=== PATIENT | female | born 1935 | race Caucasian/White ===

== ENCOUNTER 2016-08-17 16:10 | Inpatient (IN) | payer MEDICARE, OTHER ==
[~2016-08-17] VITALS: Ht 162.6 cm; Wt 74.0 kg
[~2016-08-17 16:10] MED LIST: ACET-62 PO; AMIO200T2 PO; AMLO2.5T PO; ASCO500T10 PO; BUME0.5T11 PO; CALC-727 PO; CARV12.52 PO; DIPH25CA84 PO; DOCU-168 PO; FISH1CAP59 PO; GUAI600T PO; HYDR-4246 PO; INSU100V12 SQ; INSU100V13 SQ; IPRA3AMP AEROSOL; LISI2.5T2 PO; LORA0.5T2 PO; POLY119P3 PO; POTA-81 PO; WARF1TAB6 PO; WARF3TAB6 PO
--- OUTSIDE RECORDS SUMMARY | 2016-08-17 16:16 | XMS REPORT | Referral Summary ---
Author Author [facility], [facility] Organization [facility] Address Unknown Phone Unavailable Care Team Providers Care Test Fixture Designer Name Role Phone Makenzie Dietz Primary Care Physician [phone] Encounter VC Date(s): 03/09/16 - 03/09/16 [facility] [address] [place] [id number] Discharge Diagnosis: Encounter for immunization Discharge Disposition: 01-Home or Self Care Attending Physician: Kyle Barron APRN Admitting Physician: Kyle Barron APRN Vital Signs Most recent to 1 oldest [Reference Range]: Temperature Tympanic 36.3 degC [36.6-38.1 degC] *LOW* (03/09/16 3:19 PM) Peripheral Pulse 81 bpm Rate [60-100 bpm] (03/09/16 3:19 PM) Blood Pressure 138/62 mmHg [90-140/60-90 mmHg] (03/09/16 3:19 PM) SpO2 98 % (03/09/16 3:19 PM) Problem List Condition Effective Dates Status Health Status Informant Acute Active pain(Confirmed) At risk for Active injury(Confirmed)1 At risk of pressure Active sore(Confirmed) Bladder Active problem(Confirmed)2 Bradycardia(Confirme Active d) Cataracts(Confirmed) Resolved Cellulitis(Confirmed Active ) COPD (chronic Active obstructive pulmonary disease)(Confirmed) Chronic Resolved UTI(Confirmed) Congestive heart Active failure (CHF)(Confirmed) Charcot's Active arthropathy, diabetic(Confirmed) Charcot foot due to Active diabetes mellitus(Confirmed) Diabetes(Confirmed) Resolved Diabetic Resolved neuropathy(Confirmed ) Fluid Active imbalance(Confirmed) 3 GERD Active (gastroesophageal reflux disease)(Confirmed) GERD(Confirmed) Resolved S/P placement of Active cardiac pacemaker(Confirmed) Hearing Active loss(Confirmed) Hearing Resolved loss(Confirmed) History of Resolved esophageal cancer(Confirmed) Hypercholesterolemia Active (Confirmed) Hyperlipidemia(Confi Active rmed) Hypertension(Confirm Resolved ed) Impaired gas Active exchange(Confirmed)4 Impaired spontaneous Active ventilation(Confirme d)5 Irregular heart Resolved rhythm(Confirmed) Methicillin Active resistant Staphylococcus aureus(Confirmed)6 Neuropathy(Confirmed Active ) Nonstageable Active pressure ulcer(Confirmed) Osteoarthritis(Confi Active rmed) Osteoarthritis(Confi Resolved rmed) PVD (peripheral Active vascular disease)(Confirmed) Peripheral vascular Resolved disease(Confirmed) Tissue perfusion Active alteration(Confirmed )7 DM (diabetes Active mellitus), type 2(Confirmed) 1Problem added automatically by system based on initiation of Risk for Injury Plan of Care 2hx of very recurrent urinary tract infections, hx of abnormal wide open left and right ureteral orifices, hx/ch.interstitial cystitis,&amp;bilateral vesicoureteral reflux, urethral stenosis,&amp; ch.trigonitis 3Problem added automatically by system based on initiation of Fluid Volume Imbalance Plan of Care 4Problem added automatically by system based on initiation of Impaired Gas Exchange Plan of Care 5Problem added automatically by system based on initiation of Impaired Spontaneous Ventilation Plan of Care 6Abscess from Finger collected 11/11/15 14:10:00 CDT 7Problem added automatically by system based on initiation of Tissue Perfusion Cerebral Plan of Care Allergies, Adverse Reactions, Alerts Substance Reaction Severity Status Bactrim DS Active ciprofloxacin Active niacin ITICHING Severe Active sulfamethoxazole increased eosinophils Active trimethoprim increased eosinophils Active Medications acetaminophen 650 mg oral tablet, extended release 650 mg, Oral, Daily, as needed for pain, # 24 tabs, 3 Refill(s), Pharmacy: [facility], 650 mg Oral Daily,PRN:as needed for pain Start Date: 09/20/15 Status: Ordered albuterol 2.5 mg/3 mL (0.083%) inhalation solution See Instructions, USE ONE VIAL IN NEBULIZER EVERY 6 HOURS (SCHEDULED), # 75 unknown unit, 3 Refill(s), eRx: [id number], USE ONE VIAL IN NEBULIZER EVERY 6 HOURS (SCHEDULED) Start Date: 02/28/16 Status: Ordered amiodarone 200 mg oral tablet 200 mg 1 tabs, Oral, Daily, # 30 tabs, 6 Refill(s), Pharmacy: [place] [id number], 1 tabs Oral Daily Start Date: 09/26/15 Status: Ordered amLODIPine 2.5 mg oral tablet See Instructions, TAKE ONE TABLET BY MOUTH ONCE DAILY, # 30 tabs, 2 Refill(s), eRx: [place] [id number], TAKE ONE TABLET BY MOUTH ONCE DAILY Start Date: 01/16/16 Status: Ordered ascorbic acid 500 mg, Oral, Daily, 0 Refill(s) Start Date: 07/16/15 Status: Ordered Bactroban 2% topical ointment 1 rissa, Topical, TID, # 22 g, 0 Refill(s), Pharmacy: [place] [id number] Start Date: 11/15/15 Status: Ordered bisacodyl 10 mg rectal suppository 10 mg 1 supp, Rectal, Daily, as needed for constipation, # 10 supp, 0 Refill(s) Start Date: 08/18/15 Status: Ordered bumetanide 0.5 mg oral tablet See Instructions, TAKE TWO TABLETS BY MOUTH TWICE DAILY, # 120 tabs, 1 Refill(s) , eRx: [place] [id number], TAKE TWO TABLETS BY MOUTH TWICE DAILY Start Date: 01/24/16 Status: Ordered Calcium 600+D 600 mg-200 intl units oral tablet 1 tabs, Oral, BID, # 270 tabs, 2 Refill(s), Pharmacy: [place] [id number] Start Date: 11/06/13 Status: Ordered carvedilol 12.5 mg oral tablet See Instructions, TAKE ONE TABLET BY MOUTH TWICE DAILY, # 60 tabs, 3 Refill(s), eRx: [place] [id number], TAKE ONE TABLET BY MOUTH TWICE DAILY Start Date: 02/16/16 Status: Ordered cephalexin 500 mg oral tablet 500 mg 1 tabs, Oral, TID, X 10 days, # 30 tabs, 0 Refill(s), Pharmacy: [place] [id number], 1 tabs Oral TID,x10 days Start Date: 03/06/16 Stop Date: 03/16/16 Status: Ordered Colace 100 mg, Oral, BID, 0 Refill(s) Start Date: 07/16/15 Status: Ordered diphenhydrAMINE 25 mg oral capsule 25 mg 1 caps, Oral, QID, as needed for itching, 0 Refill(s) Start Date: 08/18/15 Status: Ordered DuoNeb 0.5 mg-2.5 mg/3 mL inhalation solution 3 mL, NEB, QID, # 30 Each, 0 Refill(s), other reason (Rx) Start Date: 07/25/15 Status: Ordered Klor-Con M20 oral tablet, extended release See Instructions, TAKE ONE TABLET BY MOUTH TWICE DAILY, # 60 tabs, 3 Refill(s), eRx: [facility], TAKE ONE TABLET BY MOUTH TWICE DAILY Start Date: 01/30/16 Status: Ordered Levemir 100 units/mL subcutaneous solution See Instructions, INJECT 20 UNITS SUBCUTANEOUS AT BEDTIME DAILY., # 15 mL, 3 Refill(s), Pharmacy: [place] [address], INJECT 20 UNITS SUBCUTANEOUS AT BEDTIME DAILY. Start Date: 01/18/16 Status: Ordered lisinopril 2.5 mg oral tablet 2.5 mg 1 tabs, Oral, Daily, # 30 tabs, 3 Refill(s), Pharmacy: [facility] Start Date: 09/20/15 Status: Ordered LISINOPRIL 2.5MG TAB See Instructions, TAKE ONE TABLET BY MOUTH ONCE DAILY, # 30 tabs, 3 Refill(s), eRx: [facility], TAKE ONE TABLET BY MOUTH ONCE DAILY Start Date: 03/09/16 Status: Ordered LORazepam 0.5 mg oral tablet 1-2tabs, Oral, TID, as needed for anxiety, MUST LAST 30 DAYS, # 30 tabs, 0 Refill(s) Start Date: 12/09/15 Status: Ordered MiraLax 17 g 1 packets, Oral, Daily, 0 Refill(s) Start Date: 07/25/15 Status: Ordered Mucinex 600 mg oral tablet, extended release 600 mg, Oral, q12hr, as needed for cough, # 20 tabs, 3 Refill(s), Pharmacy: [facility], 600 mg Oral q12hr,PRN:as needed for cough Start Date: 09/20/15 Status: Ordered NEBULIZER NEBULIZER, See Instructions, NEBULIZER AND ALL THE SUPPLIES, # 1 Each, 0 Refill( s) Start Date: 09/20/15 Status: Ordered NovoLOG 100 units/mL subcutaneous solution See Instructions, 4 units SubCutaneous WITH BREAKFAST AND 5 uints with LUNCH AND 4 UNITS WITH SUPPER, # 10 mL, 5 Refill(s), Pharmacy: [facility] , 4 units SubCutaneous WITH BREAKFAST AND 5 uints with LUNCH AND 4 UNITS WITH SUPPER Start Date: 01/18/16 Status: Ordered nystatin 100,000 units/g topical cream 1 rissa, Topical, TID, # 30 g, 0 Refill(s), Pharmacy: [facility] Start Date: 01/12/16 Status: Ordered omega-3 polyunsaturated fatty acids 1000 mg oral capsule 1,000 mg 1 caps, Oral, TID, # 90 caps, 0 Refill(s) Start Date: 08/30/15 Status: Ordered Robitussin Cough + Chest Congestion DM mL, Oral, q4hr, 0 Refill(s) Start Date: 08/30/15 Status: Ordered vitamin E with mixed tocopherols 400 intl units oral capsule 1 capsule, Oral, Daily, 0 Refill(s) Start Date: 08/30/15 Status: Ordered warfarin 3 mg oral tablet See Instructions, TAKE ONE TABLET BY MOUTH ONCE DAILY, # 30 tabs, 1 Refill(s), eRx: [facility], TAKE ONE TABLET BY MOUTH ONCE DAILY Start Date: 02/10/16 Status: Ordered Results No data available for this section Immunizations Vaccine Date Refusal Reason influenza virus vaccine, inactivated 03/09/16 influenza virus vaccine, inactivated 04/13/15 influenza virus vaccine, live 02/24/13 influenza virus vaccine, live 03/25/07 pneumococcal 13-valent conjugate vaccine 04/13/15 pneumococcal 23-polyvalent vaccine 07/28/02 tetanus-diphth toxoids (Td) adult/adol 12/25/08 tetanus-diphth toxoids (Td) adult/adol 03/20/06 zoster vaccine live 11/23/10 Procedures Procedure Date Related Diagnosis Body Site Cystoscopy using panendoscope1 07/14/14 Foot examination performed (includes 06/07/14 examination through visual inspection, sensory exam with monofilament, and pulse exam - report when any of the 3 components are completed) (DM) Esophagogastroduodenoscopy with biopsies, 2013 normal Esophagogastroduodenoscopy 2011 Cystogram 2009 Colonoscopy 2008 Esophagogastroduodenoscopy 2007 JUAQUIN BSO - Total abdominal hysterectomy and 2004 bilateral salpingo-oophorectomy Cataract extraction 1999 Appendectomy Hysterectomy Pacemaker2 Repair of ptosis ou 1Biopsy and fulguration of urethrocele. 2March 2016 Social History Social History Type Response Smoking Status Former smoker; Type: Cigarettes Assessment and Plan No data available for this section
--- OUTSIDE RECORDS SUMMARY | 2016-08-17 16:17 | XMS REPORT | Continuity of Care Document ---
Author Author [facility] Organization [facility] Address Unknown Phone Unavailable Allergies Medications Problems Procedures Results Encounters ACCT No. Visit Date/Time Discharge Status Pt. Type Provider Facility Loc./Unit Complaint [id number] 08/14/2013 10:20:00 08/14/2013 23 :59:59 CLS Outpatient [id number] 07/24/2013 19:08:00 07/24/2013 23 :59:59 CLS Outpatient [id number] 06/25/2013 08:02:00 06/25/2013 23 :59:59 CLS Outpatient [id number] 06/23/2013 13:51:00 06/23/2013 23 :59:59 CLS Outpatient [id number] 06/15/2013 15:41:00 06/15/2013 23 :59:59 CLS Outpatient
--- OUTSIDE RECORDS SUMMARY | 2016-08-17 16:18 | XMS REPORT | Referral Summary ---
Author Author [facility] Organization [facility] Address Unknown Phone Unavailable Care Team Providers Care Power Brake Operator Name Role Phone Makenzie Dietz Primary Care Physician [phone] Encounter VC Date(s): 03/16/16 - 03/16/16 [facility], [address] [place] [address] Discharge Disposition: 01-Home or Self Care Attending Physician: Kyle Barron APRN Admitting Physician: Kyle Barron APRN Vital Signs Most recent to 1 oldest [Reference Range]: Temperature Tympanic 36.1 degC [36.6-38.1 degC] *LOW* (03/16/16 8:07 AM) Peripheral Pulse 86 bpm Rate [60-100 bpm] (03/16/16 8:07 AM) Respiratory Rate 16 br/min [14-20 br/min] (03/16/16 8:07 AM) Blood Pressure 110/58 mmHg [90-140/60-90 mmHg] (03/16/16 8:07 AM) SpO2 93 % (03/16/16 8:07 AM) Problem List Condition Effective Dates Status Health [...] pain, # 24 tabs, 3 Refill(s), Pharmacy: [id number], 650 mg Oral Daily,PRN:as needed for pain Start Date: 09/20/15 Status: Ordered albuterol 2.5 mg/3 mL (0.083%) inhalation solution See Instructions, USE ONE VIAL IN NEBULIZER EVERY 6 HOURS (SCHEDULED), # 75 unknown unit, 3 Refill(s), eRx: [facility], USE ONE VIAL IN NEBULIZER EVERY 6 HOURS (SCHEDULED) Start Date: 02/28/16 Status: Ordered amiodarone 200 mg oral tablet 200 mg 1 tabs, Oral, Daily, # 30 tabs, 6 Refill(s), Pharmacy: [place] [id number], 1 tabs Oral Daily Start Date: 09/26/15 Status: Ordered amLODIPine 2.5 mg oral tablet See Instructions, TAKE ONE TABLET BY MOUTH ONCE DAILY, # 30 tabs, 2 Refill(s), eRx: [place] [id number], TAKE ONE TABLET BY MOUTH ONCE DAILY Start Date: 01/16/16 Status: Ordered ascorbic acid 500 mg, Oral, Daily, 0 Refill(s) Start Date: 07/16/15 Status: Ordered Bactroban 2% topical ointment 1 rissa, Topical, TID, # 22 g, 0 Refill(s), Pharmacy: [place] [id number] Start Date: 11/15/15 Status: Ordered bisacodyl 10 mg rectal suppository 10 mg 1 supp, Rectal, Daily, as needed for constipation, # 10 supp, 0 Refill(s) Start Date: 08/18/15 Status: Ordered bumetanide 0.5 mg oral tablet See Instructions, TAKE TWO TABLETS BY MOUTH TWICE DAILY, # 120 tabs, 1 Refill(s) , eRx: [place] [id number], TAKE TWO TABLETS BY MOUTH TWICE DAILY Start Date: 01/24/16 Status: Ordered Calcium 600+D 600 mg-200 intl units oral tablet 1 tabs, Oral, BID, # 270 tabs, 2 Refill(s), Pharmacy: [place] [id number] Start Date: 11/06/13 Status: Ordered carvedilol 12.5 mg oral tablet See Instructions, TAKE ONE TABLET BY MOUTH TWICE DAILY, # 60 tabs, 3 Refill(s), eRx: [place] [id number], TAKE ONE TABLET BY MOUTH TWICE DAILY Start Date: 02/16/16 Status: Ordered Colace 100 mg, Oral, BID, [...] DAILY, # 60 tabs, 3 Refill(s), eRx: [place] [id number], TAKE ONE TABLET BY MOUTH TWICE DAILY Start Date: 01/30/16 Status: Ordered Levemir 100 units/mL subcutaneous solution See Instructions, INJECT 20 UNITS SUBCUTANEOUS AT BEDTIME DAILY., # 15 mL, 3 Refill(s), Pharmacy: [place] [id number], INJECT 20 UNITS SUBCUTANEOUS AT BEDTIME DAILY. Start Date: 01/18/16 Status: Ordered lisinopril 2.5 mg oral tablet 2.5 mg 1 tabs, Oral, Daily, # 30 tabs, 3 Refill(s), Pharmacy: [place] [id number] Start Date: 09/20/15 Status: Ordered LISINOPRIL 2.5MG TAB See Instructions, TAKE ONE TABLET BY MOUTH ONCE DAILY, # 30 tabs, 3 Refill(s), eRx: [place] [id number], TAKE ONE TABLET BY MOUTH ONCE DAILY [...] cough, # 20 tabs, 3 Refill(s), Pharmacy: [place] [address], 600 mg Oral q12hr,PRN:as needed for cough Start Date: 09/20/15 Status: Ordered NEBULIZER NEBULIZER, See Instructions, NEBULIZER AND ALL THE SUPPLIES, # 1 Each, 0 Refill( s) Start Date: 09/20/15 Status: Ordered NovoLOG 100 units/mL subcutaneous solution See Instructions, 4 units SubCutaneous WITH BREAKFAST AND 5 uints with LUNCH AND 4 UNITS WITH SUPPER, # 10 mL, 5 Refill(s), Pharmacy: [place] [id number] , 4 units SubCutaneous WITH BREAKFAST AND 5 uints with LUNCH AND 4 UNITS WITH SUPPER Start Date: 01/18/16 Status: Ordered nystatin 100,000 units/g topical cream 1 rissa, Topical, TID, # 30 g, 0 Refill(s), Pharmacy: [facility] Start Date: 01/12/16 Status: Ordered [...] DAILY, # 30 tabs, 1 Refill(s), eRx: [facility], TAKE ONE TABLET BY MOUTH [...] (DM) Esophagogastroduodenoscopy with biopsies, 2013 normal Esophagogastroduodenoscopy 2012 Cystogram 2009 Colonoscopy 2008 Esophagogastroduodenoscopy 2007 JUAQUIN BSO - Total abdominal hysterectomy and 2004 bilateral salpingo-oophorectomy Cataract extraction 1999 Appendectomy Hysterectomy Pacemaker2 Repair of ptosis ou 1Biopsy and fulguration of urethrocele. 2March 2016 Social History Social History Type Response Smoking Status Former smoker; Type: Cigarettes Assessment and Plan No data available for this section
--- OUTSIDE RECORDS SUMMARY | 2016-08-17 16:19 | XMS REPORT | Referral Summary ---
Author Author [facility] Organization [facility] Address Unknown Phone Unavailable Care Team Providers Care Drupal Developer Name Role Phone Makenzie Dietz Primary Care Physician [phone] Encounter VC Date(s): 07/04/16 - 07/04/16 [facility] [address] [place] [address] [place] [address]- Discharge Diagnosis: Dysphagia Discharge Disposition: 01-Home or Self Care Attending Physician: Phil Lopez MD Admitting Physician: Phil Lopez MD Referring Physician: Ernst Newman MD Vital Signs Most recent to 1 oldest [Reference Range]: Peripheral Pulse 85 bpm Rate [60-100 bpm] (07/04/16 2:33 PM) Blood Pressure 135/53 mmHg [90-140/60-90 mmHg] (07/04/16 2:33 PM) Problem List Condition Effective Dates Status [...] )7 DM (diabetes Active mellitus), type 2(Confirmed) 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) 1Problem added automatically by system based on [...] pain, # 24 tabs, 3 Refill(s), Pharmacy: [facility], 650 mg Oral Daily,PRN:as needed for pain Start Date: 09/20/15 Status: Ordered albuterol 2.5 mg/3 mL (0.083%) inhalation solution See Instructions, USE ONE VIAL IN NEBULIZER EVERY 6 HOURS (SCHEDULED), # 75 unknown unit, 3 Refill(s), eRx: [facility], USE ONE VIAL IN NEBULIZER EVERY 6 HOURS (SCHEDULED) Start Date: 02/28/16 Status: Ordered amiodarone 200 mg oral tablet See Instructions, TAKE ONE TABLET BY MOUTH ONCE DAILY, # 30 tabs, 5 Refill(s), eRx: [facility], TAKE ONE TABLET BY MOUTH ONCE DAILY Start Date: 04/12/16 Status: Ordered amLODIPine 2.5 mg oral tablet See Instructions, TAKE ONE TABLET BY MOUTH ONCE DAILY, # 30 tabs, 5 Refill(s), eRx: [place] [address], TAKE ONE TABLET BY MOUTH ONCE DAILY Start Date: 04/12/16 Status: Ordered ascorbic acid 500 mg, Oral, Daily, 0 Refill(s) Start Date: 07/16/15 Status: Ordered Bactroban 2% topical ointment 1 rissa, Topical, TID, # 22 g, 0 Refill(s), Pharmacy: [place] [address] Start Date: 11/15/15 Status: Ordered bisacodyl 10 mg rectal suppository 10 mg 1 supp, Rectal, Daily, as needed for constipation, # 10 supp, 0 Refill(s) Start Date: 08/18/15 Status: Ordered bumetanide 0.5 mg oral tablet See Instructions, TAKE TWO TABLETS BY MOUTH TWICE DAILY, # 120 tabs, eRx: [place] [id number] Start Date: 06/21/16 Status: Ordered Calcium 600+D 600 mg-200 intl units oral tablet 1 tabs, Oral, BID, # 270 tabs, 2 Refill(s), Pharmacy: [place] [address] Start Date: 11/06/13 Status: Ordered carvedilol 12.5 mg oral tablet See Instructions, TAKE ONE TABLET BY MOUTH TWICE DAILY, # 60 tabs, eRx: [place] [id number] Start Date: 06/19/16 Status: Ordered Colace 100 mg, Oral, BID, 0 Refill(s) Start Date: 07/16/15 Status: Ordered diphenhydrAMINE 25 mg oral capsule 25 mg 1 caps, Oral, QID, as needed for itching, 0 Refill(s) Start Date: 08/18/15 Status: Ordered DuoNeb 0.5 mg-2.5 mg/3 mL inhalation solution 3 mL, NEB, QID, # 30 Each, 0 Refill(s), other reason (Rx) Start Date: 07/25/15 Status: Ordered insulin syringe 0.5/29G MIS insulin syringe 0.5/29G MIS, See Instructions, Use to inject insulin 5 times daily or as directed, # 150 Each, 0 Refill(s), Pharmacy: [facility] , Use to inject insulin 5 times daily or as directed Start Date: 06/08/16 Status: Ordered Klor-Con M20 oral tablet, extended release See Instructions, TAKE ONE TABLET BY MOUTH TWICE DAILY, # 60 tabs, 5 Refill(s), eRx: [facility] Start Date: 06/29/16 Status: Ordered Levemir 100 units/mL subcutaneous solution See Instructions, INJECT 20 UNITS SUBCUTANEOUS AT BEDTIME DAILY., # 15 mL, 3 Refill(s), Pharmacy: [place] [address], INJECT 20 UNITS SUBCUTANEOUS AT BEDTIME DAILY. Start Date: 01/18/16 Status: Ordered lisinopril 2.5 mg oral tablet 2.5 mg 1 tabs, Oral, Daily, # 30 tabs, 3 Refill(s), Pharmacy: [place] [id number] Start Date: 09/20/15 Status: Ordered LORazepam 0.5 mg oral tablet 1-2tabs, Oral, TID, as needed for anxiety, MUST LAST 30 DAYS, # 30 tabs, 0 Refill(s) Start Date: 12/09/15 Status: Ordered MiraLax 17 g 1 packets, Oral, Daily, 0 Refill(s) Start Date: 07/25/15 Status: Ordered Miscellaneous DME DME Item Vios Nebulizer accessories (tubing, mouthpiece, filter)/daily/lifetime , See Instructions, # 1 Each, 1 Refill(s), Pharmacy: [id number] , Vios Nebulizer accessories (tubing, mouthpiece, filter)/daily/lifetime, Supply Start Date: 03/23/16 Status: Ordered Mucinex 600 mg oral tablet, extended release 600 mg, Oral, q12hr, as needed for cough, # 20 tabs, 3 Refill(s), Pharmacy: [facility], 600 mg Oral q12hr,PRN:as needed for cough Start Date: 09/20/15 Status: Ordered NEBULIZER NEBULIZER, See Instructions, NEBULIZER AND ALL THE SUPPLIES, # 1 Each, 0 Refill( s) Start Date: 09/20/15 Status: Ordered NovoLOG 100 units/mL subcutaneous solution See Instructions, 4 units SubCutaneous WITH BREAKFAST AND 5 uints with LUNCH AND 4 UNITS WITH SUPPER, # 10 mL, 5 Refill(s), Pharmacy: [facility] , 4 units SubCutaneous WITH BREAKFAST AND 5 uints with LUNCH AND 4 UNITS WITH SUPPER Start Date: 01/18/16 Status: Ordered nystatin 100,000 units/g topical cream 1 rissa, Topical, TID, # 30 g, 0 Refill(s), Pharmacy: [facility] Start Date: 01/12/16 Status: Ordered omega-3 polyunsaturated fatty acids 1000 mg oral capsule 1,000 mg 1 caps, Oral, TID, # 90 caps, 0 Refill(s) Start Date: 08/30/15 Status: Ordered relion prime glucose test strip relion prime glucose test strip, See Instructions, use to check blood glucose 3 times daily DX: E11.9, # 2 boxes, 2 Refill(s), Pharmacy: [facility] , use to check blood glucose 3 times daily; DX: E11.9 Start Date: 06/21/16 Status: Ordered Robitussin Cough + Chest Congestion DM mL, Oral, q4hr, 0 Refill(s) Start Date: 08/30/15 Status: Ordered vitamin E with mixed tocopherols 400 intl units oral capsule 1 capsule, Oral, Daily, 0 Refill(s) Start Date: 08/30/15 Status: Ordered warfarin 3 mg oral tablet See Instructions, TAKE ONE TABLET BY MOUTH ONCE DAILY, # 30 tabs, 5 Refill(s), eRx: [facility], TAKE ONE TABLET BY MOUTH ONCE DAILY Start Date: 04/12/16 Status: Ordered Results No data available for this section Immunizations Given and Recorded Vaccine Date Status Refusal Reason influenza virus vaccine, inactivated 03/09/16 Given influenza virus vaccine, inactivated 04/13/15 Given influenza virus vaccine, live 02/24/13 Given influenza virus vaccine, live 03/25/07 Given pneumococcal 13-valent conjugate vaccine 04/13/15 Given pneumococcal 23-polyvalent vaccine 07/28/02 Recorded tetanus-diphth toxoids (Td) adult/adol 12/25/08 Given tetanus-diphth toxoids (Td) adult/adol 03/20/06 Given zoster vaccine live 11/23/10 Given Procedures Procedure Date Related Diagnosis Body Site [...] Former smoker; Type: Cigarettes Assessment and Plan Extracted from: Title: Ambulatory Patient Education Author: Phil Lopez MD Date: 07/04 Allergy Dysphagia Swallowing problems (dysphagia) occur when solids and liquids seem to stick in your throat on the way down to your stomach, or the food takes longer to get to the stomach. Other symptoms include regurgitating food, noises coming from the throat, chest discomfort with swallowing, and a feeling of fullness or the feeling of something being stuck in your throat when swallowing. When blockage in your throat is complete, it may be associated with drooling. CAUSES Problems with swallowing may occur because of problems with the muscles. The food cannot be propelled in the usual manner into your stomach. You may have ulcers, scar tissue, or inflammation in the tube down which food travels from your mouth to your stomach (esophagus), which blocks food from passing normally into the stomach. Causes of inflammation include: Acid reflux from your stomach into your esophagus. Infection. Radiation treatment for cancer. Medicines taken without enough fluids to wash them down into your stomach. You may have nerve problems that prevent signals from being sent to the muscles of your esophagus to contract and move your food down to your stomach. Globus pharyngeus is a relatively common problem in which there is a sense of an obstruction or difficulty in swallowing, without any physical abnormalities of the swallowing passages being found. This problem usually improves over time with reassurance and testing to rule out other causes. DIAGNOSIS Dysphagia can be diagnosed and its cause can be determined by tests in which you swallow a white substance that helps illuminate the inside of your throat ( contrast medium) while X-rays are taken. Sometimes a flexible telescope that is inserted down your throat (endoscopy) to look at your esophagus and stomach is used. TREATMENT If the dysphagia is caused by acid reflux or infection, medicines may be used. If the dysphagia is caused by problems with your swallowing muscles, swallowing therapy may be used to help you strengthen your swallowing muscles. If the dysphagia is caused by a blockage or mass, procedures to remove the blockage may be done. HOME CARE INSTRUCTIONS Try to eat soft food that is easier to swallow and check your weight on a daily basis to be sure that it is not decreasing. Be sure to drink liquids when sitting upright (not lying down). SEEK MEDICAL CARE IF: You are losing weight because you are unable to swallow. You are coughing when you drink liquids (aspiration). You are coughing up partially digested food. SEEK IMMEDIATE MEDICAL CARE IF: You are unable to swallow your own saliva(. You are having shortness of breath or a fever, or both.( You have a hoarse voice along with difficulty swallowing. MAKE SURE YOU: Understand these instructions. Will watch your condition. Will get help right away if you are not doing well or get worse. This information is not intended to replace advice given to you by your health care provider. Make sure you discuss any questions you have with your health care provider. Document Released: 05/17/2001 Document Revised: 06/10/2015 Document Reviewed: [employer] Patient Education 2016 [employer] No follow up information was provided. Extracted from: Title: Office Visit Note Author: Phil Lopez MD Date: 07/04/16 Assessment/Plan 1.Dysphagia Ordered: Office Visit Level 4 Est [address]3333 Plan: Esophagogastroduodenoscopy. I did spend some time reviewing herchart. She did undergo a CT scan of her chest abdomen and pelvis in April 2016at did not reveal any evidence for neoplasm or acute pathology. [facility]. 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 Reviewed recentPET scan that revealed ahypermetabolic lesion at the GE junction consistent with neoplasm. I informed the patient that with herPET scan revealing evidence forhypermetabolism involving her GE junction,personal history for esophageal cancer, and recent onset of progressive dysphagiaI would recommend proceeding with esophagogastroduodenoscopy for further evaluation. Patient will need to be off her Coumadin 5 days prior to her EGD. Patient was scheduled.
--- OUTSIDE RECORDS SUMMARY | 2016-08-17 16:19 | XMS REPORT | Referral Summary ---
Author Author [facility] Organization [facility] Address Unknown Phone Unavailable Care Team Providers Care Marine Consultant Name Role Phone Makenzie Dietz Primary Care Physician [phone] Encounter VC Date(s): 07/13/16 - 07/13/16 [facility] [address] [place] [id number] Discharge Diagnosis: Leg pain, right Discharge Diagnosis: Dysphagia Discharge Disposition: 01-Home or Self Care Attending Physician: Rachel Dietz DO Admitting Physician: Rachel Dietz DO Vital Signs Most recent to 1 oldest [Reference Range]: Temperature Tympanic 36.4 degC [36.6-38.1 degC] *LOW* (07/13/16 8:52 AM) Peripheral Pulse 86 bpm Rate [60-100 bpm] (07/13/16 8:52 AM) Respiratory Rate 18 br/min [14-20 br/min] (07/13/16 8:52 AM) Blood Pressure 118/58 mmHg [90-140/60-90 mmHg] (07/13/16 8:52 AM) SpO2 98 % (07/13/16 8:52 AM) Problem List Condition Effective Dates Status [...] pain, # 24 tabs, 3 Refill(s), Pharmacy: [facility], 650 mg Oral Daily,PRN:as needed for pain Start Date: 09/20/15 Status: Ordered albuterol 2.5 mg/3 mL (0.083%) inhalation solution See Instructions, USE ONE VIAL IN NEBULIZER EVERY 6 HOURS (SCHEDULED), # 75 unknown unit, 3 Refill(s), eRx: [email or web address], USE ONE VIAL IN NEBULIZER EVERY 6 HOURS (SCHEDULED) Start Date: 02/28/16 Status: Ordered amiodarone 200 mg oral tablet See Instructions, TAKE ONE TABLET BY MOUTH ONCE DAILY, # 30 tabs, 5 Refill(s), eRx: [place] [address], TAKE ONE TABLET BY MOUTH ONCE DAILY Start Date: 04/12/16 Status: Ordered amLODIPine 2.5 mg oral tablet See Instructions, TAKE ONE TABLET BY MOUTH ONCE DAILY, # 30 tabs, 5 Refill(s), eRx: [place] [address], TAKE ONE TABLET BY MOUTH ONCE DAILY Start Date: 04/12/16 Status: Ordered ascorbic acid 500 mg, Oral, Daily, 0 Refill(s) Start Date: 07/16/15 Status: Ordered Bactroban 2% topical ointment 1 rissa, Topical, TID, # 22 g, 0 Refill(s), Pharmacy: [place] [address] Start Date: 11/15/15 Status: Ordered bisacodyl 10 mg rectal suppository 10 mg 1 supp, Rectal, Daily, as needed for constipation, # 10 supp, 0 Refill(s) Start Date: 08/18/15 Status: Ordered bumetanide 0.5 mg oral tablet See Instructions, TAKE TWO TABLETS BY MOUTH TWICE DAILY, # 120 tabs, eRx: [place] [id number] Start Date: 06/21/16 Status: Ordered Calcium 600+D 600 mg-200 intl units oral tablet 1 tabs, Oral, BID, # 270 tabs, 2 Refill(s), Pharmacy: [place] [address] Start Date: 11/06/13 Status: Ordered carvedilol 12.5 mg oral tablet See Instructions, TAKE ONE TABLET BY MOUTH TWICE DAILY, # 60 tabs, eRx: [place] [id number] Start Date: 06/19/16 Status: Ordered Colace 100 [...] directed, # 150 Each, 0 Refill(s), Pharmacy: [place] [address] , Use to inject insulin 5 times daily or as directed Start Date: 06/08/16 Status: Ordered Klor-Con M20 oral tablet, extended release See Instructions, TAKE ONE TABLET BY MOUTH ONCE DAILY, # 60 tabs, 5 Refill(s), eRx: [facility] Start Date: 06/29/16 Status: Ordered Levemir 100 units/mL subcutaneous solution See Instructions, INJECT 20 UNITS SUBCUTANEOUS AT BEDTIME DAILY., # 15 mL, 3 Refill(s), Pharmacy: [place] [address], INJECT 20 UNITS SUBCUTANEOUS AT BEDTIME DAILY. Start Date: 01/18/16 Status: Ordered lisinopril 2.5 mg oral tablet 2.5 mg 1 tabs, Oral, Daily, # 30 tabs, 3 Refill(s), Pharmacy: [place] [address] Start Date: 09/20/15 Status: Ordered LISINOPRIL 2.5MG TAB See Instructions, TAKE ONE TABLET BY MOUTH ONCE DAILY, # 30 tabs, 2 Refill(s), eRx: [facility], TAKE ONE TABLET BY MOUTH ONCE DAILY Start Date: 07/12/16 Status: Ordered LORazepam 0.5 mg oral tablet 1-2tabs, Oral, TID, as needed for anxiety, MUST LAST 30 DAYS, # 30 tabs, 0 Refill(s) Start Date: 12/09/15 Status: Ordered MiraLax 17 g 1 packets, Oral, Daily, 0 Refill(s) Start Date: 07/25/15 Status: Ordered Miscellaneous DME DME Item Vios Nebulizer accessories (tubing, mouthpiece, filter)/daily/lifetime , See Instructions, # 1 Each, 1 Refill(s), Pharmacy: [id number] , [employer]ios Nebulizer accessories (tubing, mouthpiece, filter)/daily/lifetime, Supply Start Date: 03/23/16 Status: Ordered Mucinex 600 mg oral tablet, extended release 600 mg, Oral, q12hr, as needed for cough, # 20 tabs, 3 Refill(s), Pharmacy: [place] [address], 600 mg Oral q12hr,PRN:as needed for cough Start Date: 09/20/15 Status: Ordered NEBULIZER NEBULIZER, See Instructions, NEBULIZER AND ALL THE SUPPLIES, # 1 Each, 0 Refill( s) Start Date: 09/20/15 Status: Ordered NovoLOG 100 units/mL subcutaneous solution See Instructions, 4 units SubCutaneous WITH BREAKFAST AND 6 units with LUNCH AND 4 UNITS WITH SUPPER, # 10 mL, 5 Refill(s), Pharmacy: [place] [address] Start Date: 01/18/16 Status: Ordered nystatin 100,000 units/g topical cream 1 rissa, Topical, TID, # 30 g, 0 Refill(s), Pharmacy: [place] [address] Start Date: 01/12/16 Status: Ordered omega-3 polyunsaturated fatty acids 1000 mg oral capsule 1,000 mg 1 caps, Oral, TID, # 90 caps, 0 Refill(s) Start Date: 08/30/15 Status: Ordered relion prime glucose test strip relion prime glucose test strip, See Instructions, use to check blood glucose 3 times daily DX: E11.9, # 2 boxes, 2 Refill(s), Pharmacy: [place] [address] , use to check blood glucose 3 [...] DAILY, # 30 tabs, 5 Refill(s), eRx: [facility], TAKE ONE TABLET BY MOUTH ONCE DAILY Start Date: 04/12/16 Status: Ordered Results Coagulation Most recent to 1 oldest [Reference Range]: PT Venous (07/13/16 9:33 AM) INR [0.8-1.2] 2.5 1 *HI* (07/13/16 9:33 AM) 1Result Comment: Normal (no anticoagulant): 0.8 - 1.2 Units Routine Therapeutic Range: 2.0 - 3.0 Units High Risk Therapeutic Range: 2.5 - 3.5 Units Chemistry Most recent to 1 oldest [Reference Range]: Sodium Lvl [135-144 140 mEq/L mEq/L] (07/13/1633 AM) Potassium Lvl 5.6 mEq/L [3.5-5.2 mEq/L] *HI* (07/13/16 AM) Chloride [99-111 109 mEq/L mEq/L] (07/13/16 AM) CO2 [22-31 mEq/L] 24 mEq/L (07/13/16 AM) AGAP [3-20] 7 (07/13/16 AM) BUN [10-20 mg/dL] 56 mg/dL *HI* (07/13/16 AM) Glucose Lvl [70-99 109 mg/dL mg/dL] *HI* (07/13/16 AM) Creatinine Lvl 1.83 mg/dL [0.57-1.11 mg/dL] *HI* (07/13/16: AM) eGFR [>60 mL/min] 27 mL/min 1 *ABN* (07/13/16 AM) Calcium Lvl 9.2 mg/dL 2 [8.4-10.2 mg/dL] (07/13/16: AM) Albumin Lvl [3.4-4.8 3.8 gm/dL gm/dL] (07/13/16 AM) Total Protein 7.0 gm/dL [6.0-7.6 gm/dL] (07/13/16 AM) Globulin [1.8-4.0 3.2 gm/dL gm/dL] (07/13/16: AM) ALT [0-55 U/L] 14 U/L (07/13/16 AM) AST [5-34 U/L] 12 U/L (07/13/16:33 AM) Alk Phos [40-150 76 U/L U/L] (07/13/16 AM) Bili Total [0.2-1.2 0.3 mg/dL mg/dL] (07/13/16 9:33 AM) Hgb A1c [4.1-5.6 %] 6.7 % *HI* (07/13/16 9:33 AM) eAvg Glucose 145.6 mg/dL (07/13/16 9:33 AM) 1Result Comment: Multiply eGFR results by 1.21 for race. 2Result Comment: Please note reference range change effective 07/06/2016. Immunizations Given and Recorded Vaccine Date Status [...] 2013 normal Esophagogastroduodenoscopy 2011 Cystogram 2009 Colonoscopy 2007 Esophagogastroduodenoscopy 2007 JUAQUIN BSO - Total abdominal hysterectomy and 2004 bilateral salpingo-oophorectomy Cataract extraction 1999 Appendectomy Hysterectomy Pacemaker2 Repair of ptosis ou 1Biopsy and fulguration of urethrocele. 2March 2016 Social History Social History Type Response Smoking Status Former smoker; Type: Cigarettes Assessment and Plan Extracted from: Title: Office Visit Note Author: Rachel Dietz DO Date: 07/13/16 Assessment/Plan Anticoagulated on Coumadin INR today, patient instructed to hold her Coumadin and understands her instructions, patient will come back the next day for INR and will give further instructions on Coumadin after procedure. Ordered: Office Visit Level 4 Est 97273 Diabetes Labs as below, we'll plan on changing mealtime insulin if A1c is high. We 'll target noon meal the most aggressively as this seems to be when her sugars are the highest. Ordered: Comprehensive Metabolic Panel Hemoglobin A1c Office Visit Level 4 Est 68556 Dysphagia Continue workup with oncology and surgery. Ordered: Office Visit Level 4 Est 16608 Leg pain, right Patient can go ahead and take 2 Tylenol at a time and if this isn't effective she will let me know. Ordered: Office Visit Level 4 Est 68421
--- OUTSIDE RECORDS SUMMARY | 2016-08-17 16:20 | XMS REPORT | Continuity of Care Document ---
Author Author [facility] Organization [facility] Address Unknown Phone Unavailable Support Name Relationship Address Phone JOHAN MAYS MD Caregiver [address] [place] [address] DR[place] [phone] JUANITA TRAN MD Caregiver [address] [place] [address] [place] [address] [phone] [place] Next Of Kin [address] [facility] [place] [address] C Insurance Providers Payer Name Policy Number Subscriber Name Relationship Medicare [id number] Lauro Ball 20 Self [place] [id number] Lauro Ball 20 Self Advance Directives Directive Response Recorded Date/Time Advanced Directives Type Living Will DPOA for Healthcare 10/21/13 8:55am Ordered Resuscitation Status Full Code, unverified 10/21/13 7:54am Resuscitation Documents on File No 10/21/13 8:55am Problems No known problems or medical conditions. Medications Medication Dose Route Sig Days/Qty Instructions Order Date Discontinued Date Status Hydrocodone Bit/Acetaminophen 1 Tab PO NEEDED 08/12/09 12/16/09 Discontinued Telmisartan 80 Mg PO DAILY 11/17/08 06/17/09 Discontinued Insulin Lispro 13 U SQ DAILY 04/02/08 04/05/08 Discontinued Insulin Lispro 15 U SQ THREE TIMES A DAY 11/17/08 06/17/09 Discontinued Gabapentin 100 Mg PO FOUR TIMES DAILY 03/24/10 Active Insulin Glargine 40 U SQ TWICE A DAY 11/17/08 06/17/09 Discontinued Niacin/Lovastatin 1 Tab PO DAILY 03/24/10 10/04/10 Discontinued Acetaminophen/Dp-Hydram Hcl 1 Tab PO NEEDED 04/02/08 04/05/08 Discontinued Aspirin 81 Mg PO DAILY 04/02/08 04/05/08 Discontinued Fish Oil/Convoy-3 Fatty Acids 2 Cap PO THREE TIMES A DAY 03/24/1019/05 Discontinued Vit B Comp W/C Comb No7/Fa/Min 1 Cap PO DAILY 04/02/08 04/05/08 Discontinued Vit B12/Fa/Pyridoxal/B6/Betain 1 Cap PO DAILY 11/17/08 06/17/09 Discontinued Calcium 500 Mg PO DAILY 06/07/08 08/13/08 Discontinued Vit C/Echin Purp/Herb11 500 Mg PO DAILY 06/07/08 08/13/08 Discontinued Vit E Ac/Cu/Se/Znox/Pyg/Saw P 1 Cap PO DAILY 06/07/08 08/13/08 Discontinued Omeprazole Magnesium 20 Mg PO DAILY 04/05/08 08/13/08 Discontinued Multivitamins 1 Tab PO DAILY 03/24/10 07/20/11 Discontinued Gluc Oseguera/Chondr Oseguera A Na/Na/C/Se 1 Tab PO TWICE A DAY 03/24/10 Discontinued Ibuprofen 200 Mg PO NEEDED 04/05/08 08/13/08 Discontinued Aspirin 325 Mg PO DAILY 03/24/10 07/20/11 Discontinued Insulin Glargine 50 U SQ TWICE A DAY 03/24/10 08/04/10 Discontinued Calcium Carbonate 1 Tab PO DAILY 03/24/10 07/20/11 Discontinued Insulin Glargine 40 U SQ TWICE A DAY 08/04/10 Active Insulin Lispro 15 U SQ THREE TIMES A DAY 08/04/10 Active Ascorbic Acid 250 Mg PO DAILY 10/04/10 07/20/11 Discontinued Vitamin E 400 Unit PO DAILY 10/04/10 07/20/11 Discontinued Fenofibrate Nanocrystallized 1 Tab PO DAILY 05/23/13 Active Fish Oil/Convoy-3 Fatty Acids 2 Cap PO THREE TIMES A DAY 05/23/13 Active Carvedilol 6.25 Mg PO TWICE A DAY 10/19/13 Active Guaifenesin/D-Methorphan Hb 1 Bottle PO TWICE A DAY 10/19/13 Active Docusate Sodium 100 Mg PO TWICE A DAY 10/19/13 Active Multivitamins 1 Tab PO DAILY 10/19/13 Active Vitamin E Mixed 400 Unit PO DAILY 10/19/13 Active Furosemide 20 Mg PO DAILY 10/19/13 Active Aspirin 325 Mg PO DAILY 07/14/14 Active Social History Social History Problem Response Recorded Date/Time Chewing Tobacco Status No 07/13/2014 10:13am Hx Substance Use No 07/13/2014 10:13am Hx Alcohol Use No 07/13/2014 10:13am Has the pt used tobacco in the last 12 months No 07/13/2014 10:13am Query Response Start Date Stop Date Smoking Status Former smoker Hospital Discharge Instructions No hospital discharge instructions. Plan of Care No plan of care. Functional Status No functional status results. Allergies, Adverse Reactions, Alerts Allergen Type Severity Reaction Status Last Updated Niacin Allergy Unknown HIVES Active 07/13/14 Sulfamethoxazole Allergy Unknown hives Active 07/13/14 Trimethoprim Allergy Unknown HIVES Active 07/13/14 Immunizations Name Given Type Hx Influenza Vaccination Y MAR 2014 Historical Hx Pneumococcal Vaccination Y JUL 2013 Historical Hx Tetanus, Diptheria, Pertussis No Historical Hx Influenza Vaccination Y MAR 2014 Historical Hx Tetanus Diptheria No Historical Hx Tetanus, Diptheria, Pertussis No Historical Vital Signs Acute Vital Signs Vital Response Date/Time Temperature (Fahrenheit) 97.3 deg F (96.8 - 99.1) Temperature (Calculated Celsius) 36.16828 degrees C (36.0 - 37.3) Temperature Source Temporal Pulse Rate (adult) 66 bpm (60 - 100) Respiratory Rate 16 breaths/min (10 - 20) O2 Sat by Pulse Oximetry 92 % (90 - 100) Oxygen Delivery Method Nasal Cannula Oxygen Flow Rate 1.00 L/min Blood Pressure 147/64 mm Hg Blood Pressure Source Automatic Cuff Height 5 ft 5 in Weight 194 lb Body Mass Index 32.0 kg/m^2 Results Test Source Date Result Interp. Ref. Range Comments Alanine Aminotransferase (ALT/SGPT) July 14, 2014 9:15am 25 U/L N 9- 52 Albumin July 14, 2014 9:15am 3.8 G/DL N 3.5-5.0 Albumin/Globulin Ratio July 14, 2014 9:15am 1.2 RATIO N 1.1-2.2 Alkaline Phosphatase July 14, 2014 9:15am 77 U/L N 38-126 Anion Gap July 14, 2014 9:15am 9 MEQ/L N 5-15 Anisocytosis June 23, 2014 10:44am 1+ - COMMENT Patient will go to lab for blood draw Arterial Blood Base Excess July 30, 2013 4:45pm 9.5 MMOL/L H -2.0- 2.0 COMMENT CALL RESULTS TO Beth PABLO Arterial Blood HCO3 July 30, 2013 4:45pm 35 MEQ/L H 22-26 COMMENT CALL RESULTS TO Beth PABLO Arterial Blood Oxygen Content July 30, 2013 4:45pm 28 - COMMENT CALL RESULTS TO Beth PABLO Arterial Blood Oxygen Saturation July 30, 2013 4:45pm 94.0 % L 95.0- 98.0 COMMENT CALL RESULTS TO Beth PABLO Arterial Blood Partial Pressure CO2 July 30, 2013 4:45pm 52 MMHG H 34-45 COMMENT CALL RESULTS TO Beth PABLO Arterial Blood Total CO2 July 30, 2013 4:45pm 36.9 MEQ/L H 23-27 COMMENT CALL RESULTS TO Beth PABLO Arterial Blood pH July 30, 2013 4:45pm 7.440 N 7.350-7.450 COMMENT CALL RESULTS TO Beth PABLO Arterial Blood pO2 at Patient Temp July 30, 2013 4:45pm 70 MMHG L 80 -100 COMMENT CALL RESULTS TO Beth PABLO Aspartate Amino Transf (AST/SGOT) July 14, 2014 9:15am 21 U/L N 14- 36 BUN/Creatinine Ratio July 14, 2014 9:15am 34 RATIO H 6-26 Band Neutrophils # June 23, 2014 10:44am 0.1 T/MM3 - COMMENT Patient will go to lab for blood draw Band Neutrophils % June 23, 2014 10:44am 2.0 % N 0-6 COMMENT Patient will go to lab for blood draw Basophils # (Auto) July 14, 2014 9:15am 0.1 T/MM3 N 0-0.2 Basophils # (Manual) August 05, 2013 4:10am 0.1 T/MM3 N 0-0.2 Basophils % (Manual) August 05, 2013 4:10am 1.0 % N 0-2 Basophils (%) (Auto) July 14, 2014 9:15am 0.5 % N 0-2 Blood Urea Nitrogen July 14, 2014 9:15am 31.0 MG/DL H 7-17 C-Reactive Protein June 23, 2014 10:44am 5.3 MG/L N 0-9 COMMENT Patient will go to lab for blood draw Calcium Level July 14, 2014 9:15am 9.5 MG/DL N 8.4-10.2 Calculated Osmolality July 14, 2014 9:15am 283 MOSM/KG H 261-280 Carbon Dioxide Level July 14, 2014 9:15am 27 MEQ/L N 22-30 Chemistry Specimen Hemolysis July 14, 2014 9:15am < 15 0-25 0-25 : No Hemolysis.26-70: Slight Hemolysis - can falsely elevate K and Urine Protein. 71-285: Moderate Hemolysis - can falsely elevate K, Troponin I, CA 19-9, PTH, CSF GLucose, and Urine Protein, and can falsely decrease Phenytoin. 286-999: Gross Hemolysis - can falsely elevate K, Troponin I, CA 19-9, PTH, CSF Glucose, and Urine Protine, and can falsely decrease Phenytoin. Recommend specimen recollection. Chloride Level July 14, 2014 9:15am 108 MEQ/L H 98-107 Cholesterol Level October 28, 2013 4:55am 166 MG/DL N 132-199 Cholesterol/HDL Ratio October 28, 2013 4:55am 6.6 RATIO H 0-4.0 Conjugated Bilirubin October 28, 2013 4:55am 0.00 MG/DL N 0.00-0.30 Creatinine July 14, 2014 9:15am 0.9 MG/DL N 0.7-1.2 D-Dimer July 24, 2013 8:35pm 1340 NG/ML H 0-400 <400 NG/ML= PRESUMPTIVE NEGATIVE FOR PE OR DVT>400 NG/ML=ADDITIONAL EVALUATION FOR PE OR DVT RECOMMENDED Differential Total Cells Counted March 28, 2010 4:35am 100 % - Eosinophils # (Auto) July 14, 2014 9:15am 0.1 T/MM3 N 0-0.5 Eosinophils # (Manual) June 23, 2014 10:44am 0.6 T/MM3 H 0-0.5 COMMENT Patient will go to lab for blood draw Eosinophils % (Manual) June 23, 2014 10:44am 8.0 % H 0-4 COMMENT Patient will go to lab for blood draw Eosinophils (%) (Auto) July 14, 2014 9:15am 1.3 % N 0-4 Erythrocyte Sedimentation Rate June 23, 2014 10:44am 17 MM/HR N 0-20 COMMENT Patient will go to lab for blood draw Folate July 25, 2013 4:34am 11.9 NG/ML N 2.76-20 NORMAL ADULT RANGE : 2.76->20 ng/mL Free Thyroxine January 07, 2013 10:16am 0.94 NG/DL N 0.78-2.19 Globulin July 14, 2014 9:15am 3.2 G/DL N 2.4-3.6 Glomerular Filtration Rate Calc July 14, 2014 9:15am 61 - Glucometer July 14, 2014 10:59am 71 mg/dL N 65-110 Glucose Level July 14, 2014 9:15am 84 MG/DL N 65-110 HDL Cholesterol Direct October 28, 2013 4:55am 25 MG/DL L 40-60 Hematocrit July 14, 2014 9:15am 38.5 % N 36-46 Hemoglobin July 14, 2014 9:15am 12.7 GM/DL N 12-16 Hemoglobin A1c October 28, 2013 4:55am 5.7 % L 6-7 <6.0 NON-DIABETIC RANGE6.0-7.0 ADA THERAPEUTIC RANGE >7.0 ACTION SUGGESTED Hypersegmented Neutrophils July 31, 2013 5:49am 1+ - Hypochromasia August 19, 2013 5:20am 1+ - Hyposegmented Neutrophils July 24, 2013 8:35pm 3+ - Ordering r/o VTE Yes Icterus Index July 14, 2014 9:15am < 2 0-7 Immature Granulocyte # (Auto) July 14, 2014 9:15am 0.07 T/MM3 H 0.00 -0.03 Immature Granulocyte % (Auto) July 14, 2014 9:15am 0.8 % H 0.0-0.5 LDL Cholesterol Direct January 07, 2013 10:16am 85.69 MG/DL L 100-129 LDL Cholesterol, Calculated October 28, 2013 4:55am 106.8 N 66-159 Lab Scanned Report October 28, 2013 7:29pm LAB TEST FORM REQUEST [id number] - Large Platelets August 19, 2013 5:20am Few - Lymphocytes # (Auto) July 14, 2014 9:15am 2.5 T/MM3 N 1-4.8 Lymphocytes # (Manual) June 23, 2014 10:44am 1.4 T/MM3 N 1-4.8 COMMENT Patient will go to lab for blood draw Lymphocytes % (Manual) June 23, 2014 10:44am 20.0 % L 23-45 COMMENT Patient will go to lab for blood draw Lymphocytes (%) (Auto) July 14, 2014 9:15am 26.9 % N 23-45 Magnesium Level January 11, 2011 1:15pm 1.8 MG/DL N 1.6-2.3 Mean Corpuscular Hemoglobin July 14, 2014 9:15am 32.2 UUG N 26-34 Mean Corpuscular Hemoglobin Concent July 14, 2014 9:15am 33.0 GM/DL N 31-37 Mean Corpuscular Volume July 14, 2014 9:15am 97.5 UM3 N 80-100 Mean Platelet Volume July 14, 2014 9:15am 10.0 UM3 N 9.4-12.4 Metamyelocytes # July 27, 2013 5:14am 0.2 T/MM3 - Metamyelocytes % July 27, 2013 5:14am 1.0 % H 0-0 Microcytosis July 24, 2013 8:35pm 2+ - Ordering r/o VTE Yes Monocytes # (Auto) July 14, 2014 9:15am 1.1 T/MM3 H 0-0.8 Monocytes # (Manual) June 23, 2014 10:44am 0.5 T/MM3 N 0-0.8 COMMENT Patient will go to lab for blood draw Monocytes % (Manual) June 23, 2014 10:44am 7.0 % N 0-9.0 COMMENT Patient will go to lab for blood draw Monocytes (%) (Auto) July 14, 2014 9:15am 11.8 % H 0-9.0 Neutrophils # (Auto) July 14, 2014 9:15am 5.3 T/MM3 N 1.8-7.7 Neutrophils # (Manual) June 23, 2014 10:44am 4.3 T/MM3 N 1.8-7.7 COMMENT Patient will go to lab for blood draw Neutrophils % (Manual) June 23, 2014 10:44am 61.0 % N 33-66 COMMENT Patient will go to lab for blood draw Neutrophils (%) (Auto) July 14, 2014 9:15am 58.7 % N 33-66 Nucleated Red Blood Cells July 24, 2013 8:35pm 1 - Ordering r/o VTE Yes Oxygen Delivery Method (LAB) July 30, 2013 4:45pm Bpap, % - COMMENT CALL RESULTS TO Beth PABLO Platelet Count July 14, 2014 9:15am 286 T/MM3 N 130-400 Platelet Evaluation (Diff) August 19, 2013 5:20am Not Performed - Potassium Level July 14, 2014 9:15am 4.3 MEQ/L N 3.6-5 Prealbumin July 24, 2013 8:35pm 20.0 MG/DL N 17.6-36.0 Procalcitonin July 26, 2013 5:21am 14.26 NG/ML PH - PCT </=0.5 ng/ mL - sepsis not likely;PCT >0.5 and </=2 ng/mL - sepsis possible; PCT >2 ng/mL - sepsis likely; PCT >/=10 ng/mL - systemic inflammatory response - sepsis or septic shock highly indicated. RDW Standard Deviation July 14, 2014 9:15am 44.3 FL N 36.9-50.2 Reactive Lymphocytes # June 23, 2014 10:44am 0.1 T/MM3 H 0-0 COMMENT Patient will go to lab for blood draw Reactive Lymphocytes % June 23, 2014 10:44am 2.0 % H 0-0 COMMENT Patient will go to lab for blood draw Red Blood Count July 14, 2014 9:15am 3.95 M/MM3 L 4.00-5.20 Sodium Level July 14, 2014 9:15am 144 MEQ/L N 134-144 Thyroid Stimulating Hormone (TSH) July 24, 2013 8:35pm 1.01 MIU/L N 0.47-4.68 Thyroxine (T4) January 07, 2013 10:15am 5.8 ug/dL - Thyroxine (T4) performed at [facility] Reference Lab, [address] [place] [address] Test Engineer Mayito Mendoza MD Total Bilirubin July 14, 2014 9:15am 0.50 MG/DL N 0.20-1.30 Total Creatine Kinase July 24, 2013 8:35pm 72 U/L N 30-135 Total Protein July 14, 2014 9:15am 7.0 G/DL N 6.3-8.2 Toxic Vacuolation August 19, 2013 5:20am 1+ - Triglycerides Level October 28, 2013 4:55am 171 MG/DL H 35-135 Triiodothyronine (T3) Uptake January 07, 2013 10:15am 28 % - T3 Uptake performed at [facility] Reference Lab, [address] [place], [place] [address]Medical Director Mayito Mendoza MD Troponin I July 24, 2013 8:35pm 0.014 ng/ml N 0-0.12 Turbidity July 14, 2014 9:15am < 20 0-20 Unconjugated Bilirubin October 28, 2013 4:55am 0.00 MG/DL N 0.00-1.10 Urinalysis Comment August 18, 2013 1:00pm Microscopic not ind. - Urine Bacteria July 24, 2013 10:35pm 4+ H - COMMENT C&S IF INDICATEDHas specimen been collected/obtained? Y Urine Bilirubin August 18, 2013 1:00pm Negative - Urine Blood August 18, 2013 1:00pm Negative - Urine Collection Type August 18, 2013 1:00pm Cleancatch-midstream - Urine Color August 18, 2013 1:00pm Yellow - Urine Culture Indicated July 24, 2013 10:35pm Cult reflexed &setup - COMMENT C&S IF INDICATEDHas specimen been collected/obtained? Y Urine Glucose (UA) August 18, 2013 1:00pm Negative - Urine Ketones August 18, 2013 1:00pm Negative - Urine Leukocyte Esterase August 18, 2013 1:00pm Negative - Urine Microalbumin October 28, 2013 5:20am < 5.0 MG/L 0-17 Urine Nitrite August 18, 2013 1:00pm Negative - Urine Protein August 18, 2013 1:00pm Negative - Urine RBC July 24, 2013 10:35pm 1-3 /HPF - COMMENT C&S IF INDICATEDHas specimen been collected/obtained? Y Urine Specific [place] August 18, 2013 1:00pm 1.015 - Urine Squamous Epithelial Cells July 24, 2013 10:35pm 5-10 - COMMENT C&S IF INDICATEDHas specimen been collected/obtained? Y Urine Transitional Epithelial Cells March 24, 2010 6:35pm 1-3 /HPF - COMMENT C&SHas specimen been collected/obtained? Y Urine Turbidity August 18, 2013 1:00pm Clear - Urine Urobilinogen August 18, 2013 1:00pm 1.0 EU/DL - Urine WBC July 24, 2013 10:35pm 20-30 /HPF H - COMMENT C&S IF INDICATEDHas specimen been collected/obtained? Y Urine WBC Clumps July 24, 2013 10:35pm Many H - COMMENT C&S IF INDICATEDHas specimen been collected/obtained? Y Urine pH August 18, 2013 1:00pm 7.0 - VLDL Cholesterol October 28, 2013 4:55am 34.2 MG/DL H 0-28 Vancomycin Level Trough March 26, 2010 8:50am 13.2 UG/ML L 15-20 Venous Blood Lactate July 24, 2013 8:35pm 1.1 MMOL/L N 0.6-2.2 Vitamin B12 Level July 24, 2013 8:35pm 972 PG/ML H 239-931 White Blood Count July 14, 2014 9:15am 9.1 T/MM3 N 4.5-11.0 Blood Culture Blood July 24, 2013 8:45pm NO GROWTH AFTER 5 DAYS Helicobacter pylori Rapid Urease Gastric Biopsy December 19, 2009 8:30am Urine Culture Urine, Voided-Not Cc-Midstream August 18, 2013 1:00pm Proteus Mirabilis Gram Stain Toe-Left Fourth May 24, 2014 11:20am Name: LAURO BALL Unit #: [id number] : [id number] Sex: F Loc / Svc: [facility] DOS: 06/28/14 Signed Report #: [id number] DIAGNOSTIC IMAGING REPORT TYPE OF EXAM: NM BONE SCAN, WHOLE BODY Dictated By: DAVE INTERIANO MD INDICATION: ITS.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 After the appropriate wait time total body gamma camera images are provided in anterior and posterior projections. Findings: As on the previous examination patient shows the most prominent activity about the knees right side greater than left. In addition, mildly increased activity seen about the shoulder joints, elbow joints risks and about the mid feet and first metatarsal phalangeal joint on the left. Mild activity seen about the lower lumbar region and SI joints. Patient should some activity in the phalanges of the toes most prominently the fourth toe on the left foot. This has increased since previous study. Impression: Patient continued to show degenerative changes most pronounced about the knee joints with several other joints showing some increased activity. Findings do not currently support presence of bony metastatic disease. Patient did show activity about the left distal phalanges especially the fourth digit which is somewhat indeterminate with the amount of degenerative change is noted. Clinical correlation would be needed. . Procedures Procedure Status Date Provider(s) BONE IMAGING WHOLE BODY completed 06/28/14 [id number]"TECHNETIUM TC-99M MEDRONATE, DIAGNOSTIC, PER STUDY DO completed DIEGO MUSC/FASCIA 20 SQ CM/< completed 05/24/14 CULTURE OTHR SPECIMN AEROBIC completed 05/24/14 CULTR BACTERIA EXCEPT BLOOD completed 05/24/14 CULTURE TYPE IMMUNOLOGIC completed 05/24/14 MICROBE SUSCEPTIBLE FABIÁN completed 05/24/14 SMEAR GRAM STAIN completed 05/24/14 TISSUE EXAM BY PATHOLOGIST completed 05/24/14 DECALCIFY TISSUE completed 05/24/14 E&M LEVEL - FACILITY completed 05/24/14 X-RAY EXAM OF FOOT completed 05/24/14 E&M LEVEL - FACILITY completed 06/02/14 DIEGO BONE 20 SQ CM/< completed 06/15/14 ROUTINE VENIPUNCTURE completed 06/23/14 COMPREHEN METABOLIC PANEL completed 06/23/14 BL SMEAR W/DIFF WBC COUNT completed 06/23/14 COMPLETE CBC AUTOMATED completed 06/23/14 RBC SED RATE NONAUTOMATED completed 06/23/14 C-REACTIVE PROTEIN completed 06/23/14 [id number]"BORDER, EACH DRESSING" completed 06/23/14 E&M LEVEL - FACILITY completed 06/23/14 CHEMICAL CAUTERY TISSUE completed 07/06/14 [id number]"BORDER, EACH DRESSING" completed 07/06/14 Transurethral resection of bladder tumor (TURBT) with cystoscopy completed JUANITA TRAN MD Encounters Encounter Location Date/Time Registered [facility] 07/06/14 9:05am Registered [facility] 06/28/14 8:12am Registered [facility] 06/23/14 9:40am Registered [facility] 06/15/14 8:55am Registered [facility] 06/02/14 9:57am Registered [facility] 05/24/14 11:43am Registered [facility] 05/24/14 10:14am
--- OUTSIDE RECORDS SUMMARY | 2016-08-17 16:21 | XMS REPORT | Referral Summary ---
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 Discharge Disposition: 01-Home or Self Care Attending Physician: Rachel Dietz DO Admitting Physician: Rachel Dietz DO Vital Signs Most recent to 1 oldest [Reference Range]: Temperature Tympanic 36.7 degC [36.6-38.1 degC] (07/27/16 1:40 PM) Peripheral Pulse 83 bpm Rate [60-100 bpm] (07/27/16 1:40 PM) Respiratory Rate 15 br/min [14-20 br/min] (07/27/16 1:40 PM) Blood Pressure 130/80 mmHg [90-140/60-90 mmHg] (07/27/16 1:40 PM) SpO2 95 % (07/27/16 1:40 PM) Problem List Condition Effective Dates Status [...] pain, # 24 tabs, 3 Refill(s), Pharmacy: [id number], 650 mg Oral Daily,PRN:as needed for pain Start Date: 09/20/15 Status: Ordered albuterol 2.5 mg/3 mL (0.083%) inhalation solution See Instructions, USE ONE VIAL IN NEBULIZER EVERY 6 HOURS (SCHEDULED), # 75 unknown unit, 3 Refill(s), eRx: [place] [id number], USE ONE VIAL IN NEBULIZER EVERY 6 HOURS (SCHEDULED) Start Date: 02/28/16 Status: Ordered amiodarone 200 mg oral tablet See Instructions, TAKE ONE TABLET BY MOUTH ONCE DAILY, # 30 tabs, 5 Refill(s), eRx: [place] [id number], TAKE ONE TABLET BY MOUTH ONCE DAILY Start Date: 04/12/16 Status: Ordered amLODIPine 2.5 mg oral tablet See Instructions, TAKE ONE TABLET BY MOUTH ONCE DAILY, # 30 tabs, 5 Refill(s), eRx: [place] [id number], TAKE ONE TABLET BY MOUTH ONCE DAILY Start Date: 04/12/16 Status: Ordered ascorbic acid 500 mg, Oral, Daily, 0 Refill(s) Start Date: 07/16/15 Status: Ordered Bactroban 2% topical ointment 1 rissa, Topical, TID, # 22 g, 0 Refill(s), Pharmacy: [place] [id number] Start Date: 11/15/15 Status: Ordered bisacodyl 10 mg rectal suppository 10 mg 1 supp, Rectal, Daily, as needed for constipation, # 10 supp, 0 Refill(s) Start Date: 08/18/15 Status: Ordered bumetanide 0.5 mg oral tablet See Instructions, TAKE TWO TABLETS BY MOUTH TWICE DAILY, # 120 tabs, 2 Refill(s) , eRx: [place] [id number] Start Date: 07/26/16 Status: Ordered Calcium 600+D 600 mg-200 intl units oral tablet 1 tabs, Oral, BID, # 270 tabs, 2 Refill(s), Pharmacy: [place] [id number] Start Date: 11/06/13 Status: Ordered carvedilol 12.5 mg oral tablet See Instructions, TAKE ONE TABLET BY MOUTH TWICE DAILY, # 60 tabs, eRx: [place] [id number] Start Date: 07/19/16 Status: Ordered Colace 100 mg, Oral, BID, [...] directed, # 150 Each, 0 Refill(s), Pharmacy: [facility] , Use to inject insulin 5 times daily or as directed Start Date: 06/08/16 Status: Ordered Klor-Con M20 oral tablet, extended release See Instructions, TAKE ONE TABLET BY MOUTH ONCE DAILY, # 60 tabs, 5 Refill(s), eRx: [facility] Start Date: 06/29/16 Status: Ordered Levemir 100 units/mL subcutaneous solution See Instructions, INJECT 20 UNITS SUBCUTANEOUS AT BEDTIME DAILY., # 15 mL, 3 Refill(s), Pharmacy: [facility], INJECT 20 UNITS SUBCUTANEOUS AT BEDTIME DAILY. Start Date: 01/18/16 Status: Ordered lisinopril 2.5 mg oral tablet 2.5 mg 1 tabs, Oral, Daily, # 30 tabs, 3 Refill(s), Pharmacy: [facility] Start Date: 09/20/15 Status: Ordered LISINOPRIL 2.5MG TAB See Instructions, TAKE ONE TABLET BY MOUTH ONCE DAILY, # 30 tabs, 2 Refill(s), eRx: [facility], TAKE ONE TABLET BY MOUTH [...] Instructions, # 1 Each, 1 Refill(s), Pharmacy: [facility] [id number] , [employer] Nebulizer accessories (tubing, mouthpiece, filter)/daily/lifetime, Supply Start Date: 03/23/16 Status: Ordered Mucinex 600 mg oral tablet, extended release 600 mg, Oral, q12hr, as needed for cough, # 20 tabs, 3 Refill(s), Pharmacy: [place] [address], 600 mg Oral q12hr,PRN:as needed for cough Start Date: 09/20/15 Status: Ordered NEBULIZER NEBULIZER, See Instructions, NEBULIZER AND ALL THE SUPPLIES, # 1 Each, 0 Refill( s) Start Date: 09/20/15 Status: Ordered Ethel 5 mg-325 mg oral tablet 1-2 tabs, Oral, q4hr, as needed for pain, # 30 tabs, 0 Refill(s) Start Date: 07/26/16 Status: Ordered NovoLOG 100 units/mL subcutaneous solution See Instructions, 4 units SubCutaneous WITH BREAKFAST AND 6 units with LUNCH AND 4 UNITS WITH SUPPER, # 10 mL, 5 Refill(s), Pharmacy: [place] [id number] Start Date: 01/18/16 Status: Ordered nystatin 100,000 units/g topical cream 1 rissa, Topical, TID, # 30 g, 0 Refill(s), Pharmacy: [place] [id number] Start Date: 01/12/16 Status: Ordered omega-3 polyunsaturated fatty acids 1000 mg oral capsule 1,000 mg 1 caps, Oral, TID, # 90 caps, 0 Refill(s) Start Date: 08/30/15 Status: Ordered relion prime glucose test strip relion prime glucose test strip, See Instructions, use to check blood glucose 3 times daily DX: E11.9, # 2 boxes, 2 Refill(s), Pharmacy: [place] [id number] , use to check blood glucose 3 [...] DAILY, # 30 tabs, 5 Refill(s), eRx: [place] [id number], TAKE ONE TABLET BY MOUTH ONCE DAILY Start Date: 04/12/16 Status: Ordered Results Coagulation Most recent to 1 oldest [Reference Range]: PT Venous (07/27/16 2:28 PM) INR [0.8-1.2] 2.5 1 *HI* (07/27/16 2:28 PM) 1Result Comment: Normal (no anticoagulant): 0.8 - 1.2 Units Routine Therapeutic Range: 2.0 - 3.0 Units High Risk Therapeutic Range: 2.5 - 3.5 Units Immunizations Given and Recorded Vaccine Date Status [...] Procedures Procedure Date Related Diagnosis Body Site Esophagogastroduodenoscopy and biopsy1 07/23/16 Cystoscopy using panendoscope2 07/14/14 Foot examination performed (includes 06/07/14 examination through visual inspection, sensory exam with monofilament, and pulse exam - report when any of the 3 components are completed) (DM) Esophagogastroduodenoscopy with biopsies, 2013 normal Esophagogastroduodenoscopy 2011 Cystogram 2009 Colonoscopy 2008 Esophagogastroduodenoscopy3 2007 JUAQUIN BSO - Total abdominal hysterectomy and 2004 bilateral salpingo-oophorectomy Cataract extraction 1999 Appendectomy Hysterectomy Pacemaker4 Repair of ptosis ou 1Pathology returned positive for recurrence of her esophageal cancer. Appointment already set up with Dr. Newman. 2Biopsy and fulguration of urethrocele. 3Biopsy positive for esophageal cancer 4Augch 2015 Social History Social History Type Response Smoking Status Former smoker; Type: Cigarettes Assessment and Plan Extracted from: Title: Office Visit Note Author: Rachel Dietz DO Date: 07/27/16 Assessment/Plan Anticoagulated INR today, were still working on getting her anticoagulated again after her procedureearlier this week. Ordered: Office Visit Level 4 Est 95713 Esophageal cancer Keep appointment with oncology. Ordered: Office Visit Level 4 Est 56837 Fall on same level from slipping, tripping and stumbling without subsequent striking against object, initial encounter Continue the Ethel if needed can call for refill. 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 She will return to clinic in 1 month so that we can keep a close eye on this. Ordered: Office Visit Level 4 Est 91785
--- OUTSIDE RECORDS SUMMARY | 2016-08-17 16:21 | XMS REPORT | Continuity of Care Document ---
Author Author [facility] Organization [facility] Address Unknown Phone Unavailable Support Name Relationship Address Phone SOO UNDERWOOD DO Caregiver [address] [place] [address] Unavailable RAFALREECE Guardado Makenzie DO Caregiver Unknown Unavailable MAGGIE LAUREANO Next Of Kin [address] [place] [address] Insurance Providers Guarantor Lauro Ball Address [address] [place] [address] Email DENIED 16 Payer Everence Policy Number [id number] Subscriber's Name Lauro Ball Relationship 18 Self Group Number [id number] Effective Date 02 Payer Medicare Policy Number [id number] Subscriber's Name Lauro Ball Relationship 18 Self Effective Date 02 Advance Directives Directive Response Recorded Date/Time Advanced Directives Type Living Will DPOA for Healthcare 10/21/13 8:55am Ordered Resuscitation Status Full Code, unverified 10/21/13 7:54am Resuscitation Documents on File No 10/21/13 8:55am Chief Complaint and Reason for Visit Chief Complaint Fall Reason for Visit [id number] Fall Problems Active Problems Medical Problem Onset Date Status Acute kidney injury Unknown Acute Acute renal failure (ARF) Unknown Acute Anemia Unknown Chronic Atrial fibrillation Unknown Chronic Bigeminy Unknown Chronic Bradycardia Unknown Resolved CAD (coronary artery disease) Unknown Chronic CHF (congestive heart failure) Unknown Acute CHF due to valvular disease Unknown Chronic CHF with cardiomyopathy Unknown Chronic CHF, chronic Unknown Chronic CKD (chronic kidney disease) stage 3, GFR 30-59 ml/min Unknown Chronic COPD (chronic obstructive pulmonary disease) Unknown Acute Cataract Unknown Chronic Charcot foot due to diabetes mellitus Unknown Chronic Chronic CHF Unknown Chronic Dehydration Unknown Resolved Diabetic foot ulcer Unknown Chronic Diabetic peripheral neuropathy Unknown Chronic Diastolic CHF due to valvular disease Unknown Chronic Esophageal cancer Unknown Chronic GERD (gastroesophageal reflux disease) Unknown Chronic HLD (hyperlipidemia) Unknown Chronic HTN (hypertension) Unknown Chronic Hiatal hernia Unknown Chronic Hyperkalemia Unknown Resolved Hypernatremia Unknown Resolved Hypernatremia Unknown Acute MRSA (methicillin resistant Staphylococcus aureus) Unknown Chronic Mitral regurgitation Unknown Chronic Moderate tricuspid regurgitation Unknown Chronic FARSHAD (obstructive sleep apnea) Unknown Chronic Osteoarthritis Unknown Chronic Osteomyelitis Unknown Chronic Osteomyelitis of ankle or foot, right, acute Unknown Acute Pseudomonas aeruginosa infection Unknown Acute Pulmonary edema Unknown Acute Respiratory failure Unknown Acute Specimen positive for methicillin resistant Staphylococcus aureus (MRSA) Unknown Acute Stage III chronic kidney disease Unknown Acute Stress incontinence Unknown Chronic T2DM (type 2 diabetes mellitus) Unknown Chronic Ventricular bigeminy Unknown Acute Past Problems Medical Problem Onset Date Acute right hip pain Unknown Fall Unknown Medications Current Home Medications Medication Dose Units Route Directions Days Qty Instructions Start Date Acetaminophen 500 Mg Tablet 1,000 Mg Oral Every 8 Hours as needed for Pain 07/25/16 Amiodarone Hcl 200 Mg Tablet 200 Mg Oral Twice A Day 07/25/16 Amlodipine Besylate 2.5 Mg Tablet 2.5 Mg Oral Daily 07/25/16 Ascorbic Acid 500 Mg Tablet 500 Mg Oral Daily 08/03/15 Bumetanide 0.5 Mg Tablet 1 Mg Oral Twice A Day 07/25/16 Calcium Carbonate/Vitamin D3 (Calcium 600 + Vit D 200 Tablet) 1 Each Tablet 1 Tab Oral Daily 07/25/16 Carvedilol 12.5 Mg Tablet 12.5 Mg Oral Twice A Day 07/25/16 Diphenhydramine Hcl (Benadryl) 25 Mg Capsule 25 Mg Oral Every 6 Hours as needed for Itch 08/03/15 Docusate Sodium (Colace) 100 Mg Capsule 100 Mg Oral Twice A Day 07/25/16 Fish Oil/Dha/Epa (Fish Oil 1,200 Mg Fish Oil) 1 Each Capsule 1,200 Mg Oral Three Times A Day 07/25/16 Guaifenesin (Mucinex) 600 Mg Tbbp.12hr 600 Mg Oral Twice A Day as needed for Prn Orders 07/25/16 Hydrocodone/Acetaminophen ([place] 5-325 Tablet) 5-325 Tablet 1-2 Tab Oral Every 4-6 Hours Prn 30 Tablet 07/25/16 Insulin Aspart (Novolog) 100 Unit/Ml Inj 4 Unit Sub-Q Twice A Day Breakfast & Supper 07/25/16 Insulin Aspart (Novolog) 100 Unit/Ml Inj 6 Unit Sub-Q Give With Lunch 07/25/16 Insulin Detemir (Levemir) 100 Unit/Ml Inj 20 Unit Sub-Q Bedtime 07/25/16 Ipratropium/Albuterol Sulfate (Iprat-Albut 0.5-3(2.5) Mg/3 Ml) 3 Ml Ampul.neb 1 Vial Aerosol Tx. Four Times Daily as needed for Prn Orders Lisinopril 2.5 Mg Tablet 2.5 Mg Oral Bedtime 07/20/16 Lorazepam 0.5 Mg Tablet 0.5-1 Mg Oral Three Times A Day as needed for Anxiety 07/25/16 Polyethylene Glycol 3350 (Miralax) 119 Gm Powder 17 G Oral Daily as needed for Constipation 07/25/16 Potassium Chloride 20 Meq Tablet.er 20 Meq Oral Twice Daily With Meals 07/25/16 Warfarin Sodium 1 Mg Tablet 1 Mg Oral Onetime TAKE WITH 9 MG TO EQUAL 10 MG DAILY. TODAY WILL BE 5 MG. 07/25/16 Warfarin Sodium 3 Mg Tablet 9 Mg Oral Onetime TAKE WITH 1 MG TO EQUAL 10 MG DAILY. TODAY WILL BE 5 MG. 07/25/16 Past Home Medications Medication Directions Ordered Status Acetaminophen/Dp-Hydram Hcl (Tylenol P.m. Ex-Str Caplet) 1 Tab Tablet, 1 Tab Oral As Needed 04/02/08 Discontinued Amiodarone Hcl 200 Mg Tablet, 200 Mg Oral Twice A Day 08/03/15 Discontinued Ascorbic Acid (Vitamin C) 100 Mg Tablet, 100 Mg Oral Daily 02/16/15 Discontinued Ascorbic Acid (Vitamin C) 250 Mg Tablet, 250 Mg Oral Daily 10/04/10 Discontinued Aspirin 81 Mg Tab.chew, 81 Mg Oral Daily for Cardiac Health 06/30/15 Discontinued Aspirin 81 Mg Tab.chew, 81 Mg Oral Daily 06/25/15 Discontinued Aspirin 325 Mg Tablet, 325 Mg Oral Daily 03/24/10 Discontinued Aspirin (Aspir 81) 81 Mg Tablet.dr, 81 Mg Oral Daily 04/02/08 Discontinued Bisacodyl (Dulcolax) 10 Mg Supp, 10 Mg Rectally As Needed as needed for Constipation 08/12/15 Discontinued Bumetanide 0.5 Mg Tablet, 0.5 Mg Oral Twice A Day 08/03/15 Discontinued Calcium 500 Mg Tablet, 500 Mg Oral Daily 06/07/08 Discontinued Calcium Carbonate (Calcium) 1 Tab Tablet, 1 Tab Oral Daily 03/24/10 Discontinued Calcium Carbonate/Vitamin D3 (Calcium 600 + Vit D 200 Tablet) 1 Each Tablet, 1 Tab Oral Three Times A Day 06/25/15 Discontinued Carvedilol 6.25 Mg Tablet, 6.25 Mg Oral Twice A Day 08/03/15 Discontinued Carvedilol (Coreg) 6.25 Mg Tablet, 6.25 Mg Oral Twice A Day 10/19/13 Discontinued Cefepime Hcl/Dextrose, Iso-Osm (Cefepime 1 Gm Injection) 1 Gm/50 Ml Froz.piggy , 1 G Intraven Every 8 Hours for Osteomyelitis R Ankle 06/30/15 Discontinued Docusate Sodium 100 Mg Tablet, 100 Mg Oral Twice A Day 10/19/13 Discontinued Fenofibrate (Tricor) 145 Mg Tablet, 145 Mg Oral Give With Breakfast for Cholesterol 06/30/15 Discontinued Fenofibrate Nanocrystallized (Fenofibrate) 145 Mg Tablet, 145 Mg Oral Daily 05/23/13 Discontinued Fish Oil/Uvalda-3 Fatty Acids (Fish Oil 1,000 Mg Capsule) 1 Cap Capsule, 2 Cap Oral Three Times A Day 03/24/10 Discontinued Furosemide (Lasix) 20 Mg Tablet, 20 Mg Oral Twice A Day 10/19/13 Discontinued Gabapentin (Neurontin) 100 Mg Capsule, 100 Mg Oral Four Times Daily for Pain 06/30/15 Discontinued Gabapentin (Neurontin) 100 Mg Capsule, 100 Mg Oral Four Times Daily 03/24/10 Discontinued Gluc Oseguera/Chondr Oseguera A Na/Na/C/Se (Joint Formula Tablet) 1 Tab Tablet, 1 Tab Oral Twice A Day 03/24/10 Discontinued Glucosa Oseguera 2KCL/Chondroitin Oseguera (Glucosamine & Chondroitin Cap) 1 Each Capsule, 1 Tab Oral Daily 02/16/15 Discontinued Guaifenesin (Guaifenesin Er) 600 Mg Tab.er.12h, 600 Mg Oral Twice A Day 08/02 Discontinued Guaifenesin/D-Methorphan Hb (Mucinex Dm Tablet) 1 Bottle Tbmp.12hr, 1 Tab Oral Twice A Day 10/19/13 Discontinued Guaifenesin/Dextromethorphan (Robitussin Cough-Chest Dm Liq) 118 Ml Liquid, 5 Ml Oral Every 4 Hours as needed for Cough/Congestion 08/03/15 Discontinued Hydrocodone Bit/Acetaminophen ([place] 7.5/325 Tablet) 1 Tab Tablet, 1 Tab Oral As Needed 08/12/09 Discontinued Ibuprofen 200 Mg Tablet, 200 Mg Oral As Needed 04/05/08 Discontinued Insulin Aspart (Novolog Flexpen) 1 Unit Pen, 7 Unit Sub-Q Three Times A Day 08/03/15 Discontinued Insulin Detemir (Levemir) 100 Unit/Ml Inj, 23 Unit Sub-Q Bedtime 08/03/15 Discontinued Insulin Glargine (Lantus) 100 U/Ml Cartridge, 40 Unit Sub-Q Twice A Day 08/04 Discontinued Insulin Glargine (Lantus) 100 U/Ml Vial, 50 U Sub-Q Twice A Day 03/24/10 Discontinued Insulin Glargine (Lantus) 100 U/Ml Vial, 40 U Sub-Q Twice A Day 11/17/08 Discontinued Insulin Lispro (Humalog) 100 U/Ml Cartridge, 5 U Sub-Q Three Times A Day 09/11 Discontinued Insulin Lispro (Humalog) 100 U/Ml Insuln.pen, 15 U Sub-Q Three Times A Day Discontinued Insulin Lispro (Humalog) 100 U/Ml Insuln.pen, 13 U Sub-Q Daily 04/02/08 Discontinued Lisinopril 5 Mg Tablet, 5 Mg Oral Daily 06/25/15 Discontinued Loratadine 10 Mg Tablet, 10 Mg Oral Daily 06/25/15 Discontinued Multivitamins (Multiple Vitamin) 1 Tab Tablet, 1 Tab Oral Daily 03/24/10 Discontinued Niacin/Lovastatin (Advicor 1,000 Mg-20 Mg Tablet) 1 Each Tbmp.24hr, 1 Tab Oral Daily 03/24/10 Discontinued Nystatin 15 Applic/15 G Bottle, 1 Applic Topically Three Times A Day Discontinued Uvalda-3 Fatty Acids/Fish Oil (Uvalda 3 1,000 Mg Softgel) 1 Each Capsule, 2000 Mg Oral Three Times A Day 08/03/15 Discontinued Uvalda-3 Fatty Acids/Fish Oil (Uvalda-3 1,000 Mg Softgel) 1 Each Capsule, 2 Cap Oral Three Times A Day 06/25/15 Discontinued Omeprazole Magnesium (Prilosec Otc) 20 Mg Tablet.dr, 20 Mg Oral Daily Discontinued Polyethylene Glycol 3350 17 Gm Powd.pack, 17 G Oral Daily 06/25/15 Discontinued Sodium Chloride (Saline Mist) 45 Ml Ojai, 2 [place] Intranasal Four Times Daily 06/25/15 Discontinued Telmisartan (Micardis) 80 Mg Tablet, 80 Mg Oral Daily 11/17/08 Discontinued Vit B Comp W/C Comb No7/Fa/Min (Rx Balance Cn Capsule) 1 Cap Capsule, 1 Cap Oral Daily 04/02/08 Discontinued Vit B12/Fa/Pyridoxal/B6/Betain (Methyl-Max Capsule) 1 Cap Capsule, 1 Cap Oral Daily 11/17/08 Discontinued Vit C/Echin Purp/Herb11 (Vit C 500 Mg-Echinacea Tab) 500 Mg Tablet, 500 Mg Oral Daily 06/07/08 Discontinued Vit E Ac/Cu/Se/Znox/Pyg/Saw P (Prostamen Softgel) 1 Cap Capsule, 1 Cap Oral Daily 06/07/08 Discontinued Vitamin E 400 Unit Capsule, 400 Unit Oral Daily 10/04/10 Discontinued Vitamin E Mixed (Vitamin E) 400 Unit Capsule, 400 Unit Oral Daily 10/19/13 Discontinued Social History Social History Problem Response Recorded Date/Time Onset Date Status Hx Substance Use No 07/25/2016 12:58pm Not Applicable Not Applicable Hx Alcohol Use No 07/25/2016 12:58pm Not Applicable Not Applicable Has the pt used tobacco in the last 12 months No 07/20/2016 2:11pm Not Applicable Not Applicable Tobacco Usage none 08/03/2015 1:32pm Not Applicable Not Applicable Query Response Start Date Stop Date Smoking Status Former smoker Hospital Discharge Instructions No hospital discharge instructions. Plan of Care Discharge Date 07/25/16 2:35pm Disposition 01 DISCHARGED HOME, SELF-CARE Condition at Discharge Improved Instructions/Education Provided Hip Pain (ED) Prescriptions See Medication Section Referrals REECE LYLES DO Additional Instructions/Education Your right hip and pelvic x-rays were negative. You will be sore for the next several days. You may take hydrocodone/acetaminophen 5/325mg, 1-2 days every 4-6 hours. Start with one tablet. This medication may cause drowsiness and may increase your risk for fall if you are taking to much. This medication may cause constipation so you may need to take a stool softener while taking. Do not take additional Tylenol when taking this medication. Follow treatment plan. If your pain is not improving follow with your doctor in one week for re-evaluation, sooner if worsting pain. Care Plan and Goals Physician Care Plan Problem: Right hip pain after fall Goal: Follow up with primary care provider Instructions: Take medications and follow care plan as discussed/written Functional Status No functional status results. Allergies, Adverse Reactions, Alerts Allergen Type Severity Reaction Status Last Updated Niacin Allergy Unknown HIVES Active 07/25/16 Sulfamethoxazole Allergy Unknown hives Active 07/25/16 Trimethoprim Allergy Unknown HIVES Active 07/25/16 Immunizations Query Response on File Recorded Date/Time Hx Influenza Vaccination Y 201507/20/16 10:28am Hx Pneumococcal Vaccination Y JUL 2013 07/20/16 10:28am Hx Tetanus, Diptheria, Pertussis No 01/10/11 5:17pm Hx Influenza Vaccination Y 201507/20/16 10:28am Hx Tetanus Diptheria No 01/10/11 5:17pm Hx Tetanus, Diptheria, Pertussis No 01/10/11 5:17pm Influenza Vaccine Hx 04/13/2015 07/25/16 12:58pm Tdap Vaccine Hx NO BROKEN SKIN 07/25/16 1:08pm Vital Signs Acute Vital Signs Vital Response Date/Time Temperature (Fahrenheit) 99.0 deg F (96.8 - 99.1) 07/25/2016 2:35pm Temperature (Calculated Celsius) 37.37405 degrees C (36.0 - 37.3) 07/25/2016 2:35pm Temperature Source Oral 07/23/2016 1:16pm Pulse Rate (adult) 69 bpm (60 - 100) 07/25/2016 2:35pm Respiratory Rate 16 breaths/min (10 - 20) 07/25/2016 2:35pm O2 Sat by Pulse Oximetry 98 % (90 - 100) 07/25/2016 2:35pm Oxygen Delivery Method Nasal Cannula 07/23/2016 1:05pm Oxygen Flow Rate 1.50 L/min 07/23/2016 1:05pm Blood Pressure 112/57 mm Hg 07/25/2016 2:35pm Blood Pressure Source Automatic Cuff 07/23/2016 1:05pm Height (Feet) 0 feet 07/25/2016 12:39pm Height (Inches) 64.00 inches 07/25/2016 12:39pm Weight (Kilograms) 79.000 kg 07/25/2016 12:39pm Body Mass Index (BMI) 29.0 07/25/2016 12:39pm Results Laboratory Results Test Name Result Units Flags Reference Collection Date/Time Result Date/ Time Comments Prothromb Time International Ratio 1.12 H 0.76-1.04 07/23/2016 10:34am 07/23/2016 11:08am THERAPUTIC RANGE=2.00-3.00 FOR ANTI-THROMBOSIS THERAPUTIC RANGE=2.50-3.50 FOR IMPLANTED VALVE Glucometer 136 mg/dL H 65-110 07/23/2016 10:48am 07/23/2016 10:51am Name: LAURO BALL Unit #: [id number] : 1935 Sex: F Admit Date: Loc / Svc: ED Discharge Date: DIAGNOSTIC IMAGING REPORT Report #: [id number] [place], [place] Indication: ITS.REASON: Fall today with right hip pain proximal femur laterally and posteriorly PROCEDURE: PELVIS W/2 VIEW RT HIP: Encounter: Initial Comparison: Addictions Counselor image from an abdominal CT dated February 17, 2008. Findings: No acute fracture or dislocation seen. Moderate degenerative change in the right hip joint with ring osteophytes on the femoral head. Degenerative change in the visualized lower lumbar spine. Arterial vascular calcifications. Impression: No acute fracture seen. If there is ongoing pain or continued clinical concern for hip fracture, MRI could be performed for further evaluation. . Procedures Procedure Status Date Provider(s) Bone imaging whole body Completed 04/30/16 [id number]"TECHNETIUM TC-99M MEDRONATE, DIAGNOSTIC, PER STUDY DO Completed E&M LEVEL - FACILITY Completed 05/01/16 Esophagogastroduodenoscopy (EGD) with closed biopsy Completed 07/23/16 ELENA LO MD, FACS, CWS Encounters Encounter Location Arrival/Admit Date Discharge/Depart Date Attending Provider Departed Emergency Room [facility] 07/25/16 12:39pm 07/25/16 2: 35pm SOO UNDERWOOD DO Departed Surgical Day Care [facility] 07/23/16 9:58am 07/23/16 1: 16pm ELENA LO FACS, MD Registered Clinic [facility] 05/01/16 9:24am ELENA LO FACS, MD Registered Clinic [facility] 04/30/16 8:58am TRES SIMS MD Recent Diagnosis
[2016-08-17] MEDS ORDERED: ACET-2890 PO (16:51)
[2016-08-17] MEDS ORDERED: BISA10SU8 RECTALLY (16:52)
[2016-08-17] MEDS ORDERED: INSU100V13 SQ (16:59)
--- OUTSIDE RECORDS SUMMARY | 2016-08-17 18:11 | XMS REPORT | Continuity of Care Document ---
Author Author [facility] Organization [facility] Address Unknown Phone Unavailable Allergies Medications Problems Procedures Results Encounters ACCT No. Visit Date/Time Discharge Status Pt. Type Provider Facility Loc./Unit Complaint [id number] 08/14/2013 10:20:00 08/14/2013 23 :59:59 CLS Outpatient [id number] 07/24/2013 19:08:00 07/24/2013 23 :59:59 CLS Outpatient [id number] 06/25/2013 08:02:00 06/25/2013 23 :59:59 CLS Outpatient [id number] 06/23/2013 13:51:00 06/23/2013 23 :59:59 CLS Outpatient [id number] 06/15/2013 15:41:00 06/15/2013 23 :59:59 CLS Outpatient
--- OUTSIDE RECORDS SUMMARY | 2016-08-17 18:14 | XMS REPORT | Continuity of Care Document ---
Author Author [facility] Organization [facility] Address Unknown Phone Unavailable Support Name Relationship Address Phone JOHAN MAYS MD Caregiver [address] [place] [address] [address] [phone] JUANITA TRAN MD Caregiver [address] [place] [address] [place] [address] [phone] LA[place]OMAG[place] Next Of Kin [address] [facility] [place] [address] C Insurance Providers Payer Name Policy Number Subscriber Name Relationship Medicare [id number] Lauro Ball 20 Self Everencemma [id number] Lauro Ball 20 Self Advance Directives Directive [...] Mg PO DAILY 04/02/08 04/05/08 Discontinued Fish Oil/[place]-3 Fatty Acids 2 Cap PO THREE TIMES [...] 1 Tab PO DAILY 05/23/13 Active Fish Oil/[place]-3 Fatty Acids 2 Cap PO THREE TIMES [...] F (96.8 - 99.1) Temperature (Calculated Celsius) 36.51562 degrees C (36.0 - 37.3) Temperature Source [...] 28, 2013 7:29pm LAB TEST FORM REQUEST [id number] - Large Platelets August 19, 2013 5:20am [...] 5.8 ug/dL - Thyroxine (T4) performed at [facility] Reference Lab, [address] [place] [address] Well Testing Operator Mayito Mendoza MD Total Bilirubin July 14, [...] 28 % - T3 Uptake performed at [facility] Reference Lab, [address] [place], [place] [address]Medical Director Mayito Mendoza MD Troponin I July [...] INDICATEDHas specimen been collected/obtained? Y Urine Specific [place] August 18, 2013 1:00pm 1.015 - Urine [...] 2014 11:20am Name: LAURO BALL Unit #: [id number] : 1935 Sex: F Loc / Svc: [facility] DOS: 06/28/14 Signed Report #: [id number] DIAGNOSTIC IMAGING REPORT TYPE OF EXAM: NM [...] Provider(s) BONE IMAGING WHOLE BODY completed 06/28/14 [id number]"TECHNETIUM TC-99M MEDRONATE, DIAGNOSTIC, PER STUDY DO completed [...] NONAUTOMATED completed 06/23/14 C-REACTIVE PROTEIN completed 06/23/14 [id number]"BORDER, EACH DRESSING" completed 06/23/14 E&M LEVEL - FACILITY completed 06/23/14 CHEMICAL CAUTERY TISSUE completed 07/06/14 [id number]"BORDER, EACH DRESSING" completed 07/06/14 Transurethral resection of bladder tumor (TURBT) with cystoscopy completed JUANITA TRAN MD Encounters Encounter Location Date/Time Registered [facility] 07/06/14 9:05am Registered [facility] 06/28/14 8:12am Registered [facility] 06/23/14 9:40am Registered [facility] 06/15/14 8:55am Registered [facility] 06/02/14 9:57am Registered [facility] 05/24/14 11:43am Registered [facility] 05/24/14 10:14am
--- NOTE | 2016-08-17 18:22 | ERPDOC ---
Departure Disposition Decision Date: Aug 17, 2016 Disposition Decision Time: 19:45 Disposition: 02 TO [facility] Impression Impression Impression: Primary Impression: GI bleed GI bleed type/associated pathology: unspecified gastrointestinal hemorrhage type Qualified Codes: K92.2 - Gastrointestinal hemorrhage, unspecified Additional Impressions: Anemia Anemia type: unspecified type Qualified Codes: D64.9 - Anemia, unspecified Hyperkalemia Severity: Moderate Condition: Stable Seen By: Physician only Referrals: REECE LYLES DO (Family) Problems/Meds/Labs Reviewed?: Yes Medications reviewed and manag: Yes Follow up care ordered?: Yes Mental Status: Alert, Oriented HPI - Abdominal Pain General Chief Complaint: GI Bleed Stated Complaint: UNSTABLE INR Time Seen by Provider: 17:58 Source: patient History/Exam Limitations: no limitations HPI - Abdominal Pain Initial Comments Patient is a 81-year-old female presents emergency room for evaluation elevated INR, black tarry stools. Patient states that she is on Coumadin for atrial fibrillation, has recently started chemotherapy for recurrent esophageal cancer , has been feeling mildly weak did have her INR checked in her doctor's office 2 days ago and it was 6, patient was told not take her Coumadin. Patient's had to 5 minute nosebleed each morning for the past 2 days, and then had 2 to 3 black tarry stools today. Patient and family became concerned so they brought patient to the ER for evaluation. On arrival patient no abdominal pain no active bleeding visible no acute distress Occurred At: home Onset: Gradual Duration: 12-24 hrs Pain Scale: Now & Worst: 0/10 Allergies: Coded Allergies: niacin (Verified Allergy, Unknown, HIVES, 08/17/16) sulfamethoxazole (Verified Allergy, Unknown, hives, 08/17/16) trimethoprim (Verified Allergy, Unknown, HIVES, 08/17/16) Past History Patient Surgical History Hysterectomy Appendectomy Port a Cath (2007) Past Medical History Metabolic: cancer, diabetes, hypercholesterolemia, hypertension Cardiac: A-fib, CHF Respiratory: COPD GI: GERD Female: UTI, renal failure, renal insufficiency Musculoskeletal: osteoarthritis, other Integumentary: other Psychological: anxiety Surgical History General: EGD, colonoscopy Cardiac: cardiac cath, pacemaker Reproductive/: hysterectomy Family History Family PMH: FOUND: CHF, cancer, hypertension Vaccines Hx Influenza Vaccination: Yes (2015) Hx Pneumococcal Vaccination: Yes (JUL 2013) Hx Tetanus Diptheria: No Hx Tetanus, Diptheria, Pertuss: No Social History Does patient use chewing tobac: No # of Packs/Tins per Day: 0.5 # of Years: 45 Second Hand Exposure: No Substance Use Type: does not use Current Occupational Status: retired Review of Systems Constitutional Constitutional: weakness, DENIES: appetite decrease, chills, dizziness, fever Eyes Vision: DENIES: double vision, loss of visual cardoso ENMT Sinuses: DENIES: congestion, rhinorrhea Mouth/Throat: DENIES: scratchy throat, sore throat Cardiovascular Cardiac: DENIES: chest pain, dyspnea on exertion GI Upper Abdomen: DENIES: nausea, pain, vomiting Lower Abdomen: blood in stool, other (black tarry stools), DENIES: constipation , diarrhea, pain General: DENIES: frequency, urgency Musculoskeletal General: DENIES: cramps, pain, weakness Integumentary Skin: DENIES: color change, itching, rash Endocrine Endocrine: DENIES: heat/cold intolerance Hematologic/Lymphatic Hematologic/Lymphatic: DENIES: anemia Physical Exam General General Nourishment: well nourished, well developed General Body Habitus: well groomed Vitals and Pain First Documented Vital Signs Date Time Temp Pulse Resp B/P Pulse Ox O2 Delivery O2 Flow Rate FiO2 08/17/16 16:20 98.4 79 16 141/63 98 Room Air Weight: Kilograms: 80.000 Height (feet): 5 Height (inches): 4.00 Triage Pain Scale: RN VS reviewed by Provider: Yes Eyes (brief) Eyes Brief: found: EOMI ENMT (brief) ENMT Brief: FOUND: mucosa moist, normal dentition, NOT FOUND: nasal erythema, pharnyx erythema, tonsillar deviation Neck (brief) Neck: NOT FOUND: adenopathy, spasm, tenderness Respiratory (brief) Respiratory: FOUND: clear all cardoso, equal bilaterally, NOT FOUND: rales, wheezes Cardiovascular (brief) Cardiac: FOUND: regular rate, regular rhythm Capillary Refill: <2 sec Abdomen (brief) Abdominal Brief: FOUND: bowel normo active x4, soft, NOT FOUND: tender Abdomen Rectal: FOUND: external hemorrhoids, heme positive stools, sphincter normal tone, NOT FOUND: black/tarry, gross blood, impaction, internal hemorrhoids, mass , thrombosed hemorrhoids Lymphatic (brief) Lymphatic Brief: NOT FOUND: adenopathy Musculoskeletal (brief) Musculoskeletal Brief: NOT FOUND: spasm, tenderness Integumentary (brief) Integumentary Brief: FOUND: dry, pink, warm, NOT FOUND: rash Neurologic (brief) Neurological Brief: FOUND: CN w/o gross def to obs, motor-no gross deficits, sensory-no gross deficits Psychiatric (brief) Psychiatric Brief: FOUND: alert, oriented Differential Diagnoses Considering: Other (GI bleed, ileus, neoplasm, hyper kalemia hypokalemia hypernatremia hyponatremia) Progress Results/Orders Orders Procedure Category Date Status Time Cbc W/Auto LAB 08/17/16 Complete Diff-Reflex Manual INR LAB 08/17/16 Complete Orthostatic Bp/Pulse EDM 08/17/16 Transmitted 18:26 Iv Lock (Ed Only) EDM 08/17/16 Transmitted 18:34 Type And Screen BBK 08/17/16 In Process 18:34 Cmp - Comprehensive LAB 08/17/16 Complete Metabolic 18:34 Normal Saline (Normal PHA 08/17/16 Complete Saline Iv) 18:45 Place In Facility: ED ADM 08/17/16 Transmitted 19:44 EKG EKG 08/17/16 Logged 19:38 Calcium Gluconate PHA 08/17/16 Complete (Calcium Gluconate) 19:45 Insulin Regular PHA 08/17/16 Complete (Novolin R) 19:45 Dextrose 50% Pfs PHA 08/17/16 Complete (D50w) 19:45 Telemetry [facility] 08/17/16 In Process 19:48 Place In Facility As: ADMIT 08/17/16 Transmitted 19:46 Up In Room With Assist SHERIDAN 08/17/16 In Process Telemetry [facility] 08/17/16 In Process 19:46 Manage Oxygen [facility] 08/17/16 In Process Administration 19:46 Monitor Pulse Oximetry [facility] 08/17/16 In Process 19:46 Clear Liquid Diet DIET 08/18/16 Transmitted Breakfast Normal Saline (Normal PHA 08/17/16 Logged Saline Iv) 19:46 Hydrocodone/Acetaminophen PHA 08/17/16 Logged ([place] 5/325) 20:00 Hydromorphone PHA 08/17/16 Logged (Dilaudid) 20:00 Cbc W/Auto LAB 08/18/16 Verified Diff-Reflex Manual 04:00 Bmp - Basic Metabolic LAB 08/18/16 Verified Panel 04:00 Oxygen, Continuous RT 08/17/16 Logged 19:46 Acetaminophen Sr PHA 08/17/16 Logged (Tylenol Arthritis) 20:00 Amiodarone (Pacerone) PHA 08/17/16 Logged 21:00 Albuterol/Ipratropium PHA 08/17/16 Logged (Duoneb) 20:00 Glucose Oral Gel 40% PHA 08/17/16 Logged (Glutose 15) 20:00 Dextrose 50% Pfs PHA 08/17/16 Logged (D50w) 20:00 Insulin Regular PHA 08/17/16 Logged (Novolin R) 20:00 Blood Glucose SHERIDAN 08/17/16 In Process Assessment Bgm 19:46 Hgb - Hemoglobin LAB 08/18/16 Verified 08:00 Hgb - Hemoglobin LAB 08/18/16 Verified 14:00 Hgb - Hemoglobin LAB 08/18/16 Verified 16:00 Hgb - Hemoglobin LAB 08/18/16 Verified 20:00 Pantoprazole PHA 08/17/16 Logged (Protonix Iv) 21:00 Sodium Polystyrene PHA 08/17/16 Logged Sulfonate (Kayexelate 20:00 D5w (D5w) W/Sodium PHA 08/17/16 Logged Bicarbonate 20:00 Bmp - Basic Metabolic LAB 08/18/16 Verified Panel 08:00 Bmp - Basic Metabolic LAB 08/18/16 Verified Panel 14:00 Bmp - Basic Metabolic LAB 08/18/16 Verified Panel 16:00 Bmp - Basic Metabolic LAB 08/18/16 Verified Panel 20:00 Consent For Procedure SHERIDAN 08/17/16 In Process 19:46 Teach: Transfusion [facility] 08/17/16 In Process Education 19:46 Normal Saline (Ns) PHA 08/17/16 Logged 19:46 Packed Cells Directed BBK 08/17/16 In Process 19:46 Albuterol Sulfate PHA 08/17/16 Logged (Proventil 2.5 Mg/3 Ml 21:00 Packed Cells [facility] 08/17/16 In Process Leukoreduced 20:12 Lab Results Laboratory Tests Test 08/17/16 18:24 08/17/16 18:44 08/17/16 18:46 White Blood Count 8.8T/MM3 Red Blood Count 2.26M/MM3 Hemoglobin 7.3GM/DL Hematocrit 21.9% Mean Corpuscular Volume 96.9UM3 Mean Corpuscular Hemoglobin 32.3UUG Mean Corpuscular Hemoglobin Concent 33.3GM/DL RDW Standard Deviation 41.9FL Platelet Count 254T/MM3 Mean Platelet Volume 9.8UM3 Immature Granulocyte % (Auto) 0.5% Neutrophils (%) (Auto) 54.0% Lymphocytes (%) (Auto) 36.5% Monocytes (%) (Auto) 7.0% Eosinophils (%) (Auto) 1.8% Basophils (%) (Auto) 0.2% Absolute Immature Granulocyte (auto 0.04T/MM3 Absolute Neutrophils (auto) 4.8T/MM3 Absolute Lymphocytes (auto) 3.2T/MM3 Absolute Monocytes (auto) 0.6T/MM3 Absolute Eosinophils (auto) 0.2T/MM3 Absolute Basophils (auto) 0.0T/MM3 Prothromb Time International Ratio 2.91 Turbidity < 20 Sodium Level 135MEQ/L Potassium Level 6.1MEQ/L Chloride Level 105MEQ/L Carbon Dioxide Level 24MEQ/L Anion Gap 6MEQ/L Blood Urea Nitrogen 66.0MG/DL Creatinine 1.6MG/DL Glomerular Filtration Rate Calc 31 BUN/Creatinine Ratio 41RATIO Glucose Level 122MG/DL Calculated Osmolality 280MOSM/KG Calcium Level 8.8MG/DL Total Bilirubin 0.40MG/DL Icterus Index < 2 Aspartate Amino Transf (AST/SGOT) 17U/L Alanine Aminotransferase (ALT/SGPT) 30U/L Alkaline Phosphatase 105U/L Total Protein 6.4G/DL Albumin 3.5G/DL Globulin 2.9G/DL Albumin/Globulin Ratio 1.2RATIO Chemistry Specimen Hemolysis < 15 Glucometer 130mg/dL Medications Current ED Medications Sodium Chloride (Normal Saline IV) 1,000 ml @ 999 mls/hr Q1H1M ONCE IV Last administered on 08/17/16 18:51; Start 08/17/16 at 18:45; Stop 08/17/16 at 19:45 ; Status DC Calcium Gluconate (Calcium Gluconate) 1,000 mg O ONCE IV Last administered on 08/17/16 20:09; Start 08/17/16 at 19:45; Stop 08/17/16 at 19:47; Status DC Insulin Human Regular (Novolin R) 5 unit O ONCE IV Last administered on 20:08; Start 08/17/16 at 19:45; Stop 08/17/16 at 19:47; Status DC Dextrose 50 ml 50 ml O ONCE IV Last administered on 08/17/16 20:03; Start at 19:45; Stop 08/17/16 at 19:47; Status DC Sodium Chloride (Normal Saline IV) 1,000 ml @ 125 mls/hr Q8H IV ; Start at 19:46; Status UNV Acetaminophen/ Hydrocodone Bitart ([place] 5/325) 1 tab Q6H PRN PO PAIN; Start at 20:00; Status UNV Hydromorphone HCl (Dilaudid) 0.5 mg Q2H PRN IV PAIN; Start 08/17/16 at 20:00; Status UNV Acetaminophen (Tylenol Arthritis) 650 mg DAILY PRN PO PAIN; Start 08/17/16 at 20:00; Status UNV Amiodarone HCl (Pacerone) 200 mg BID PO ; Start 08/17/16 at 21:00; Status UNV Albuterol/ Ipratropium (Duoneb) 3 ml QID PRN AEROSOL PRN ORDERS; Start at 20:00; Status UNV Glucose (Glutose 15) 37.5 g PRN PRN PO HYPOGLYCEMIA; Start 08/17/16 at 20:00; Status UNV Dextrose (D50w) 25 ml PRN PRN IV HYPOGLYCEMIA; Start 08/17/16 at 20:00; Status UNV Insulin Human Regular (Novolin R) SS PRN SQ ; Start 08/17/16 at 20:00; Status UNV Pantoprazole Sodium (Protonix Iv) 40 mg Q12HR IV ; Start 08/17/16 at 21:00; Status UNV Sodium Polystyrene Sulfonate 15 gm 15 gm O ONCE PO ; Start 08/17/16 at 20:00; Stop 08/17/16 at 20:01; Status UNV Sodium Bicarbonate 100 meq/Dextrose/Water 1,100 ml @ 125 mls/hr Q8H48M IV ; Start 08/17/16 at 20:00; Status UNV Sodium Chloride (NS) 500 ml @ 0 mls/hr Q0M IV ; Start 08/17/16 at 19:46; Status UNV Albuterol Sulfate (Proventil 2.5 Mg/3 ml) 2.5 mg Q3HR ONCE AEROSOL ; Start at 21:00; Stop 08/17/16 at 21:01; Status UNV Progress Progress Patient with 7.3 hemoglobin and potassium of 6.1, calcium gluconate and insulin and D50 given, EKG shows no peaking of T waves. Patient is not orthostatic, has received 1 L fluid in the emergency department. Discussed case with Dr. Estevez, he will admit inpatient status EKG EKG : Rate: 60-100 Rhythm: sinus [place]: normal QRS: LBBB Intervals: normal ST/T: non-specific changes Interpreted by: signing physician PHILOMENA LAMA MD Aug 17, 2016 18:22
--- NOTE | 2016-08-17 18:26 | NUR ---
PROVIDER DR LAMA IN TO SEE PATIENT.
[2016-08-17 18:29] LABS: BASOPHILS % (AUTO) 0.2 % (0-2); EOSINOPHILS # (AUTO) 0.2 T/MM3 (0-0.5); EOSINOPHILS % (AUTO) 1.8 % (0-4); HCT - HEMATOCRIT 21.9 % (36-46); HGB - HEMOGLOBIN 7.3 GM/DL (12-16); IMMATURE GRANULOCYTE # (AUTO) 0.04 T/MM3 (0.00-0.03); IMMATURE GRANULOCYTE % (AUTO) 0.5 % (0.0-0.5); LYMPHOCYTES # (AUTO) 3.2 T/MM3 (1-4.8); LYMPHOCYTES % (AUTO) 36.5 % (23-45); MEAN CORPUSCULAR HGB 32.3 UUG (26-34); MEAN CORPUSCULAR HGB CONC(MCHC 33.3 GM/DL (31-37); MEAN CORPUSCULAR VOLUME 96.9 UM3 (80-100); MEAN PLATELET VOLUME 9.8 UM3 (9.4-12.4); MONOCYTES # (AUTO) 0.6 T/MM3 (0-0.8); NEUTROPHILS #(AUTO)-ABSOLUTE 4.8 T/MM3 (1.8-7.7); RED BLOOD COUNT 2.26 M/MM3 (4.00-5.20); WBC - WHITE BLOOD COUNT 8.8 T/MM3 (4.5-11.0)
[2016-08-17 18:34] LABS: INR 2.91 (0.76-1.04); PROTHROMBIN TIME 31.7 SEC (9.31-12.49)
[2016-08-17] MEDS ORDERED: NORMAL SALINE 1,000 ML IV ONE (18:45)
[2016-08-17 19:15] LABS: ALBUMIN 3.5 G/DL (3.5-5.0); ALBUMIN/GLOBULIN RATIO 1.2 RATIO (1.1-2.2); ALKALINE PHOSPHATASE 105 U/L (38-126); ALT (SGPT) 30 U/L (9-52); ANION GAP 6 MEQ/L (5-15); AST (SGOT) 17 U/L (14-36); BUN/CREATININE RATIO 41 RATIO (6-26); CALCIUM 8.8 MG/DL (8.4-10.2); CHLORIDE 105 MEQ/L (98-107); CO2 - CARBON DIOXIDE 24 MEQ/L (22-30); CREATININE 1.6 MG/DL (0.7-1.2); GLOMERULAR FILTRATION RATE 31; GLUCOSE 122 MG/DL (65-110); SODIUM 135 MEQ/L (134-144); TOTAL PROTEIN 6.4 G/DL (6.3-8.2)
[2016-08-17 19:27] LABS: POTASSIUM 6.1 MEQ/L (3.6-5)
[2016-08-17] MEDS ORDERED: DEXTROSE 50% SYRINGE 50ml (Eq. 1 AMP) IV ONE (19:45)
[2016-08-17] MEDS ORDERED: CALCIUM GLUCONATE 1000mg/10ml INJECTION IV ONE (19:45)
[2016-08-17] MEDS ORDERED: INSULIN REGULAR 100 UNIT/ML IV ONE (19:45)
[2016-08-17] MEDS ORDERED: NORMAL SALINE 500 ML IV SCH (19:46)
[2016-08-17] MEDS ORDERED: NORMAL SALINE 1,000 ML IV SCH (19:46)
[2016-08-17] MEDS ORDERED: ACETAMINOPHEN SR 650 MG TABLET PO PRN (20:00)
[2016-08-17] MEDS ORDERED: HYDROCODONE/APAP 5 mg/325 mg TABLET PO PRN (20:00)
[2016-08-17] MEDS ORDERED: ALBUTEROL/IPRATROPIUM INHAL. 2.5mg-0.5mg/3ml Neb. AEROSOL PRN (20:00)
[2016-08-17] MEDS ORDERED: HYDROMORPHONE 2mg/ml INJECTION IV PRN (20:00)
[2016-08-17] MEDS ORDERED: SODIUM POLYSTYRENE SULFONATE 15 GM/60 ML BOTTLE PO ONE (20:00)
[2016-08-17] MEDS ORDERED: GLUCOSE ORAL GEL 40% 37.5 G TUBE PO PRN (20:00)
[2016-08-17] MEDS ORDERED: DEXTROSE 50% SYRINGE 50ml (Eq. 1 AMP) IV PRN (20:00)
[2016-08-17] MEDS ORDERED: SODIUM BICARBONATE 100 MEQ in D5W 1,000 ML IV SCH (20:00)
--- NOTE | 2016-08-17 20:28 | NUR ---
REPORT GIVEN TO ELENA URIBE. NO QUESTIONS NOTED.
--- OUTSIDE RECORDS SUMMARY | 2016-08-17 20:31 | XMS REPORT | Continuity of Care Document ---
Author Author [facility] Organization [facility] Address Unknown Phone Unavailable Allergies Medications Problems Procedures Results Encounters ACCT No. Visit Date/Time Discharge Status Pt. Type Provider Facility Loc./Unit Complaint [id number] 08/14/2013 10:20:00 08/14/2013 23 :59:59 CLS Outpatient [id number] 07/24/2013 19:08:00 07/24/2013 23 :59:59 CLS Outpatient [id number] 06/25/2013 08:02:00 06/25/2013 23 :59:59 CLS Outpatient [id number] 06/23/2013 13:51:00 06/23/2013 23 :59:59 CLS Outpatient [id number] 06/15/2013 15:41:00 06/15/2013 23 :59:59 CLS Outpatient
--- OUTSIDE RECORDS SUMMARY | 2016-08-17 20:34 | XMS REPORT | Continuity of Care Document ---
Author Author [facility] Organization [facility] Address Unknown Phone Unavailable Support Name Relationship Address Phone JOHAN MAYS MD Caregiver [address] [place] [address] [place] [phone] JUANITA TRAN MD Caregiver [address] [place] [address] [place] [address] [phone] LA[place]OM[place] Next Of Kin [address] [facility] [place] [address] C Insurance Providers Payer Name Policy Number Subscriber Name Relationship Medicare [id number] Lauro Ball 18 Self [place] [id number] Lauro Ball 20 Self Advance Directives Directive [...] Mg PO DAILY 04/02/08 04/05/08 Discontinued Fish Oil/[place]-3 Fatty Acids 2 Cap PO THREE TIMES [...] 1 Tab PO DAILY 05/23/13 Active Fish Oil/[place]-3 Fatty Acids 2 Cap PO THREE TIMES [...] F (96.8 - 99.1) Temperature (Calculated Celsius) 36.88017 degrees C (36.0 - 37.3) Temperature Source [...] 28, 2013 7:29pm LAB TEST FORM REQUEST [id number] - Large Platelets August 19, 2013 5:20am [...] 5.8 ug/dL - Thyroxine (T4) performed at [facility] Reference Lab, [address] [place] [address] Fund Director Mayito Mendoza MD Total Bilirubin July 14, [...] 28 % - T3 Uptake performed at [facility] Reference Lab, [address] [place], [place] [address]Medical Director Mayito Mendoza MD Troponin I July [...] INDICATEDHas specimen been collected/obtained? Y Urine Specific [place] August 18, 2013 1:00pm 1.015 - Urine [...] 2014 11:20am Name: LAURO BALL Unit #: [id number] : 1935 Sex: F Loc / Svc: [facility] DOS: 06/28/14 Signed Report #: [id number] DIAGNOSTIC IMAGING REPORT TYPE OF EXAM: NM [...] Provider(s) BONE IMAGING WHOLE BODY completed 06/28/14 [id number]"TECHNETIUM TC-99M MEDRONATE, DIAGNOSTIC, PER STUDY DO completed [...] NONAUTOMATED completed 06/23/14 C-REACTIVE PROTEIN completed 06/23/14 [id number]"BORDER, EACH DRESSING" completed 06/23/14 E&M LEVEL - FACILITY completed 06/23/14 CHEMICAL CAUTERY TISSUE completed 07/06/14 [id number]"BORDER, EACH DRESSING" completed 07/06/14 Transurethral resection of bladder tumor (TURBT) with cystoscopy completed JUANITA TRAN MD Encounters Encounter Location Date/Time Registered [facility] 07/06/14 9:05am Registered [facility] 06/28/14 8:12am Registered [facility] 06/23/14 9:40am Registered [facility] 06/15/14 8:55am Registered [facility] 06/02/14 9:57am Registered [facility] 05/24/14 11:43am Registered [facility] 05/24/14 10:14am
--- NOTE | 2016-08-17 20:41 | NUR ---
REPORT GIVEN TO EDDY URIBE ON CHIEF INFORMATION OFFICER.
--- NOTE | 2016-08-17 20:58 | NUR ---
ADMIT TO ROOM 130.
[2016-08-17] MEDS ORDERED: ALBUTEROL INH.SOLN. 2.5mg/3ml (0.083%) Neb. AEROSOL ONE (21:00)
--- NOTE | 2016-08-17 21:05 | NUR ---
ADMIT PT ADMITTED FROM ER TO RM 130. PT IS ACCOMPANIED BY HER SISTER. SHE CAME BY CART AND WAS TRANSFERRED FROM CART TO BED WITH ASSIST OF 2. ABLE TO ANSWER ADMISSION QUESTIONS. WILL CONTINUE TO MONITOR.
[2016-08-17 21:16] VITALS: BP 146/60; PULSE 69; RESP 16; TEMP 96.7; O2SAT 100
[2016-08-17 21:22] VITALS: Ht 162.6 cm; Wt 74.0 kg
[2016-08-17 22:46] VITALS: O2SAT 100
[2016-08-17] MEDS: AMIODARONE 200 MG TABLET PO SCH (23:29)
[2016-08-17] MEDS: PANTOPRAZOLE 40mg INJECTION IV SCH (23:29)
[2016-08-17 23:45] VITALS: BP 131/47; PULSE 67; RESP 16; TEMP 98; O2SAT 98
[2016-08-17] MEDS: ACETAMINOPHEN 500 MG TABLET PO PRN (23:56)
[2016-08-18] VITALS (7 sets, daily range): BP systolic 134–178; BP diastolic 54–82; PULSE 63–94; RESP 16–18; TEMP 96.1–97.4; O2SAT 98–100
--- NOTE | 2016-08-18 03:02 | HPPDOC ---
HARDY MONTE MD 08/18/16 0253: HPI - Adult Date DATE: 08/18/16 TIME: 03:49 General Chief Complaint: dark stools History of Present Illness This is a 81-year-old female who is chronically anticoagulated for a fibrillation. The patient has a history of esophageal carcinoma. The patient has been treated intermittently with chemotherapy to manage her symptoms. The patient was recently started a new chemotherapy this past Saturday. The patient s INR did get his height is 6 this week. The patients Coumadin was held. The patient onset of dark black stools which began yesterday. The patient called her primary care physician who recommended that she presents to the emergency department for evaluation. The patient in the emergency department had brown stool in the rectal vault. There was Hemoccult positive. The patients lab work demonstrated a hemoglobin of 7.3 down from 10.7. The INR now is 2.9. The patient has had only a total of 3 dark stools in the past 24 hours. At this time the patient will be admitted for treatment of upper GI bleed. The patient will receive 1 unit of packed RBCs. Past Medical History Past Medical History Hypertension Atrial fibrillation Diabetes Congestive heart failure GERD Hiatal hernia Urinary incontinence Osteoarthritis HC: EF 55%. 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 Echo EF 45%. pHTN 77mmHg. Moderate tricuspid regurg. Surgical History Patient's Surgical History: Hysterectomy Appendectomy Port a Cath (2007) Current Medications Home Meds Active Scripts Hydrocodone/Acetaminophen ([place] 5-325 Tablet) 5-325 Tablet, 1-2 TAB PO Q4-6HPRN , #30 TAB Prov:THU MAYA MATTRESS STRIPPER 07/25/16 Reported Medications Insulin Aspart (Novolog) 100 Unit/Ml Inj, 5 UNIT SQ WS 08/17/16 Bisacodyl (Bisacodyl) 10 Mg Supp.rect, 10 MG RECTALLY DAILY Y for CONSTIPATION 08/17/16 Acetaminophen (Acetaminophen) 650 Mg Tablet.er, 650 MG PO DAILY Y for PAIN 08/17/16 Potassium Chloride (Potassium Chloride) 20 Meq Tablet.er, 20 MEQ PO DAILY 07/25/16 Polyethylene Glycol 3350 (Miralax) 119 Gm Powder, 17 G PO DAILY Y for CONSTIPATION 07/25/16 Lorazepam (Lorazepam) 0.5 Mg Tablet, 0.5-1 MG PO TID Y for ANXIETY 07/25/16 Ipratropium/Albuterol Sulfate (Iprat-Albut 0.5-3(2.5) mg/3 ml) 3 Ml Ampul.neb, 1 VIAL AEROSOL QID Y for PRN ORDERS 07/25/16 Insulin Detemir (Levemir) 100 Unit/Ml Inj, 20 UNIT SQ HS 07/25/16 Insulin Aspart (Novolog) 100 Unit/Ml Inj, 6 UNIT SQ WL 07/25/16 Insulin Aspart (Novolog) 100 Unit/Ml Inj, 4 UNIT SQ WB 07/25/16 Guaifenesin (Mucinex) 600 Mg Tbbp.12hr, 600 MG PO BID Y for PRN ORDERS 07/25/16 Docusate Sodium (Colace) 100 Mg Capsule, 100 MG PO TID 07/25/16 Carvedilol (Carvedilol) 12.5 Mg Tablet, 12.5 MG PO BID 07/25/16 Warfarin Sodium (Warfarin Sodium) 3 Mg Tablet, 3 MG PO DAILY 07/25/16 Calcium Carbonate/Vitamin D3 (Calcium 600 + Vit D 200 Tablet) 1 Each Tablet, 1 TAB PO HS 07/25/16 Bumetanide (Bumetanide) 0.5 Mg Tablet, 1 MG PO BID 07/25/16 Amlodipine Besylate (Amlodipine Besylate) 2.5 Mg Tablet, 2.5 MG PO DAILY 07/25/16 Amiodarone HCl (Amiodarone HCl) 200 Mg Tablet, 200 MG PO BID 07/25/16 Lisinopril (Lisinopril) 2.5 Mg Tablet, 2.5 MG PO HS 07/20/16 Diphenhydramine HCl (Benadryl) 25 Mg Capsule, 25 MG PO Q6H Y for ITCHING 08/03/15 Ascorbic Acid (Ascorbic Acid) 500 Mg Tablet, 500 MG PO DAILY 08/03/15 Allergies: Coded Allergies: niacin (Verified Allergy, Unknown, HIVES, 08/17/16) sulfamethoxazole (Verified Allergy, Unknown, hives, 08/17/16) trimethoprim (Verified Allergy, Unknown, HIVES, 08/17/16) Family History Family History: Unable to obtain due to patient's mentation Social History Does patient use chewing tobac: No # of Packs/Tins per Day: 0.5 # of Years: 45 Second Hand Exposure: No Substance Use Type: does not use Current Occupational Status: retired Advance Directives: Yes DPOA for Healthcare Only Review of Systems All Other Systems All Other Systems: Reviewed Comments The patient denies headache, denies change in vision, denies sore throat or swallowing, the patient denies fever chills or sweats, the patients increasing shortness of breath albeit minimally, no fever chills or sweats, the patient recently started chemotherapy for persistent esophageal carcinoma, see oncology notes for further details, the patient describes mild epigastric pain, slight nausea and emesis, the stools or changes noted above, no focal weakness just general weakness, a 10 point review of systems is otherwise negative except for described above Physical Exam General General Nourishment: well nourished, well developed, apparent age, adult General Body Habitus: well groomed Vital Signs Vital Signs Date Time Temp Pulse Resp B/P Pulse Ox O2 Delivery O2 Flow Rate FiO2 08/17/16 23:45 98.0 67 16 131/47 98 Nasal Cannula 1.00 Height (Feet): 5 Height (Inches): 4.00 Telemetry Rhythm: Sinus Rhythm Eyes Brief: FOUND: EOMI, trauma, NOT FOUND: PERRL, other, scleral icterus Neck Brief: FOUND: midline, NOT FOUND: JVD, nuchal rigidity, other, spasm, tenderness, tracheal deviation Respiratory Brief: FOUND: clear all cardoso, equal bilaterally, NOT FOUND: other , rales, spasm, symmetrical, tenderness, wheezes Cardiovascular (brief) Cardiac Brief: FOUND: regular rate, regular rhythm, NOT FOUND: click, gallop, murmur, other, pedal edema, peripheral edema, rub Abdomen (brief) Abdominal Brief: FOUND: soft, NOT FOUND: BS normo active x4, distended, other, tender Musculoskeletal (brief) Musculoskeletal Brief: FOUND: extremities move equally, NOT FOUND: deformity, loss of motion, other, spasm, tenderness Integumentary (brief) Integumentary Brief: FOUND: pink, warm Neurologic (brief) Comments no deficits Neurologic RN Documented GCS Eye Opening: Verbal: Motor: Total: Psychiatric (brief) FOUND: alert, attentive, normal affect, oriented Laboratory Laboratory Tests Test 08/17/16 18:24 08/17/16 18:44 08/17/16 18:46 White Blood Count 8.8T/MM3 Red Blood Count 2.26M/MM3 Hemoglobin 7.3GM/DL Hematocrit 21.9% Mean Corpuscular Volume 96.9UM3 Mean Corpuscular Hemoglobin 32.3UUG Mean Corpuscular Hemoglobin Concent 33.3GM/DL RDW Standard Deviation 41.9FL Platelet Count 254T/MM3 Mean Platelet Volume 9.8UM3 Immature Granulocyte % (Auto) 0.5% Neutrophils (%) (Auto) 54.0% Lymphocytes (%) (Auto) 36.5% Monocytes (%) (Auto) 7.0% Eosinophils (%) (Auto) 1.8% Basophils (%) (Auto) 0.2% Absolute Immature Granulocyte (auto 0.04T/MM3 Absolute Neutrophils (auto) 4.8T/MM3 Absolute Lymphocytes (auto) 3.2T/MM3 Absolute Monocytes (auto) 0.6T/MM3 Absolute Eosinophils (auto) 0.2T/MM3 Absolute Basophils (auto) 0.0T/MM3 Prothromb Time International Ratio 2.91 Turbidity < 20 Sodium Level 135MEQ/L Potassium Level 6.1MEQ/L Chloride Level 105MEQ/L Carbon Dioxide Level 24MEQ/L Anion Gap 6MEQ/L Blood Urea Nitrogen 66.0MG/DL Creatinine 1.6MG/DL Glomerular Filtration Rate Calc 31 BUN/Creatinine Ratio 41RATIO Glucose Level 122MG/DL Calculated Osmolality 280MOSM/KG Calcium Level 8.8MG/DL Total Bilirubin 0.40MG/DL Icterus Index < 2 Aspartate Amino Transf (AST/SGOT) 17U/L Alanine Aminotransferase (ALT/SGPT) 30U/L Alkaline Phosphatase 105U/L Total Protein 6.4G/DL Albumin 3.5G/DL Globulin 2.9G/DL Albumin/Globulin Ratio 1.2RATIO Chemistry Specimen Hemolysis < 15 Glucometer 130mg/dL Assessment & Plan Assessment 1. Upper GI bleed acute present on admission: Demonstrated by BUN/creatinine ratio is significantly elevated. Hemoglobin is down approximately 2.5 mg. We ll transfuse 1 unit of packed cells. The amount of bleeding is minimal. Well start IV proton pump inhibitor. Clear liquid diet. Serial hemoglobins. Reassess in the morning. As patient is not profoundly bleeding at this time, will not reverse Coumadin. Well recheck INR in the morning. Clearly this is a cause and effect. Patients pain treated for esophageal cancer. Would imagine there is a significant amount of irritation in the gastric system. With INR going up to 6. It is conceivable that the patient had a brief episode of bleeding. Has INR is normalizing, bleeding is slowing down and not stopping. There is no indication for a emergent endoscopy procedure. 2. Anemia of acute blood loss present on admission: Transfuse one unit, repeat labs in the morning, would anticipate possibly 1 more unit, 3. Hyperkalemia acute present admission: Patients potassium is 6.1 on presentation. This is consistent with chronic kidney disease, SANDRA inhibitor, potassium supplementation. This was present on previous admissions. EKG is reassuring. At this time admit to a telemetry bed. Bicarbonate drip started. Patient was treated with insulin and glucose in the emergency department. The patient received calcium gluconate. Well monitor serial BMPs, if the potassium does not improve, well need to consider transferring to the ICU for a insulin drip. I would anticipate the patient response to fluids and bicarbonate. Additionally nebulized treatments and Kayexalate. 4. Chronic kidney disease stage III present on admission: As noted above, hydration is to occur, repeat labs in the morning 5. Hypertension chronic present on admission: Patient is on Coreg. Well continue for now 6. Atrial fibrillation chronic present on admission: Patient sounds regular on exam. Patients on amiodarone. Patient on beta alyssa. At this time INR is still therapeutic at 2.9. As noted above will need to hold Coumadin acutely. Well monitor on telemetry 7. COPD chronic present on admission: DuoNeb, albuterol, not exacerbated, 8. DVT prophylaxis: SCDs, Coumadin 9. Gastric prophylaxis: IV PPI DVT Prophylaxis: SCD'S Code Status Full Code, unverified Hospital Course Summary Disclaimer The hospital course summary below is not to be considered part of the above Progress Note. IAN CARRILLO MD 08/18/16 1253: Past Medical History Current Medications Home Meds Active Scripts Hydrocodone/Acetaminophen ([place] 5-325 Tablet) 5-325 Tablet, 1-2 TAB PO Q4-6HPRN , #30 TAB Prov:THU MAYA MATTRESS STRIPPER 07/25/16 Reported Medications Insulin Aspart (Novolog) 100 Unit/Ml Inj, 5 UNIT SQ WS 08/17/16 Bisacodyl (Bisacodyl) 10 Mg Supp.rect, 10 MG RECTALLY DAILY Y for CONSTIPATION 08/17/16 Acetaminophen (Acetaminophen) 650 Mg Tablet.er, 650 MG PO DAILY Y for PAIN 08/17/16 Potassium Chloride (Potassium Chloride) 20 Meq Tablet.er, 20 MEQ PO DAILY 07/25/16 Polyethylene Glycol 3350 (Miralax) 119 Gm Powder, 17 G PO DAILY Y for CONSTIPATION 07/25/16 Lorazepam (Lorazepam) 0.5 Mg Tablet, 0.5-1 MG PO TID Y for ANXIETY 07/25/16 Ipratropium/Albuterol Sulfate (Iprat-Albut 0.5-3(2.5) mg/3 ml) 3 Ml Ampul.neb, 1 VIAL AEROSOL QID Y for PRN ORDERS 07/25/16 Insulin Detemir (Levemir) 100 Unit/Ml Inj, 20 UNIT SQ HS 07/25/16 Insulin Aspart (Novolog) 100 Unit/Ml Inj, 6 UNIT SQ WL 07/25/16 Insulin Aspart (Novolog) 100 Unit/Ml Inj, 4 UNIT SQ WB 07/25/16 Guaifenesin (Mucinex) 600 Mg Tbbp.12hr, 600 MG PO BID Y for PRN ORDERS 07/25/16 Docusate Sodium (Colace) 100 Mg Capsule, 100 MG PO TID 07/25/16 Carvedilol (Carvedilol) 12.5 Mg Tablet, 12.5 MG PO BID 07/25/16 Warfarin Sodium (Warfarin Sodium) 3 Mg Tablet, 3 MG PO DAILY 07/25/16 Calcium Carbonate/Vitamin D3 (Calcium 600 + Vit D 200 Tablet) 1 Each Tablet, 1 TAB PO HS 07/25/16 Bumetanide (Bumetanide) 0.5 Mg Tablet, 1 MG PO BID 07/25/16 Amlodipine Besylate (Amlodipine Besylate) 2.5 Mg Tablet, 2.5 MG PO DAILY 07/25/16 Amiodarone HCl (Amiodarone HCl) 200 Mg Tablet, 200 MG PO BID 07/25/16 Lisinopril (Lisinopril) 2.5 Mg Tablet, 2.5 MG PO HS 07/20/16 Diphenhydramine HCl (Benadryl) 25 Mg Capsule, 25 MG PO Q6H Y for ITCHING 08/03/15 Ascorbic Acid (Ascorbic Acid) 500 Mg Tablet, 500 MG PO DAILY 08/03/15 Allergies: Coded Allergies: niacin (Verified Allergy, Unknown, HIVES, 08/17/16) sulfamethoxazole (Verified Allergy, Unknown, hives, 08/17/16) trimethoprim (Verified Allergy, Unknown, HIVES, 08/17/16) Assessment & Plan Assessment 08/18/2016-Dr. Carrillo I have reviewed the H&P above by Dr. Monte. I've seen and examined the patient today. I agree with past medical history, family history, and social history with additions below. The patient denies history of CVA, pulmonary emboli, DVT or valvular replacements. On family history the patient states she had a grandmother with cancer in 2 aunts with cancer. There is no family history of esophageal cancer. The patient states she is chronically on oxygen at 1 L per nasal cannula. She was recently diagnosed with recurrence of esophageal cancer. She sees Dr. Newman for oncology care and had an EGD about a month ago by Dr. Lopez. The patient has history of atrial fibrillation and is chronically anticoagulated with Coumadin. On Saturday and she was noticing black stools and her INR had been as high as 6. She was told to hold her Coumadin but after having dark stools and then feeling very fatigued yesterday she came in for evaluation and was found to have a hemoglobin of 7.3 down from 10.7. The patient was admitted with presumed upper GI bleed and acute blood loss anemia. Today she states she is feeling better. She is just received 1 unit of blood after hemoglobin dropped to 6.2. She is on IV fluids. She denies any chest pains or palpitations. She denies any shortness of breath. She denied any lightheadedness. She states her fatigue is improving. She has not had any bowel movement since admission. She is urinating okay. She has some chronic leg pain from diabetic neuropathy and Charcot foot. Creatinine has improved to 1.2 down from 1.6. BUN is improved from 53-66. Potassium has normalized and is 4.9 down from 6.1. INR yesterday was 2.9. Impression and plan Esophageal cancer for which the patient recently restarted chemotherapy Probable upper GI bleed-continue Protonix, clear liquids, will discuss with surgeons whether or not to proceed with EGD versus simply stop Coumadin and see if there are signs of continued bleeding area did Acute blood loss anemia-transfuse 2 units of blood today. Recheck hemoglobin and every 6 hours hemoglobin. Atrial fibrillation-hold Coumadin, review med list, patient is not likely still on high-dose amiodarone Acute kidney injury-improved with IV fluids Hyperkalemia-resolved Type 2 diabetes mellitus-continue sliding scale insulin for now, consider adding Levemir CHF with ejection fraction of 45% and pulmonary hypertension-currently stable Hypertension-stable blood pressure off of lisinopril and Norvasc which are on hold from recent acute blood loss anemia COPD-without exacerbation-continue breathing treatments and supplemental oxygen as usual Coagulopathy secondary to Coumadin-given oral vitamin K because of GI bleeding The patient's DPOA's are her 2 sisters and her one brother. She does live with one of her sisters. Regarding CODE STATUS, patient states she wants to be full code but would not want to be "a vegetable" on a ventilator for a long time and does not think she would want a feeding tube. Telemetry currently shows sinus rhythm with first-degree block alternating with paced rhythm. Will decrease IV fluid rate to 50 ML's per hour to avoid fluid overload We'll restart Levemir at half of the usual evening dose tonight. If patient is having problems with hypoglycemia prior to that we'll discontinue Recheck CBC and renal panel tomorrow. Recheck INR tomorrow. Addendum 08/18/2016 at [address] with Dr. Rose who is on-call for Dr. Lopez. He would recommend continuing off of Coumadin and only doing an EGD if the patient continues to have bleeding despite normalization of INR. We'll continue with Protonix IV for now. Will consult Dr. Rose if the patient has continued bleeding issues. HARDY MONTE MD Aug 18, 2016 02:53 IAN CARRILLO MD Aug 18, 2016 12:53
[2016-08-18] MEDS: INSULIN REGULAR 100 UNIT/ML SQ PRN (06:15)
[2016-08-18 06:37] LABS: BASOPHILS % (AUTO) 0.4 % (0-2); EOSINOPHILS # (AUTO) 0.1 T/MM3 (0-0.5); EOSINOPHILS % (AUTO) 1.7 % (0-4); HCT - HEMATOCRIT 18.8 % (36-46); HGB - HEMOGLOBIN 6.2 GM/DL (12-16); IMMATURE GRANULOCYTE # (AUTO) 0.02 T/MM3 (0.00-0.03); IMMATURE GRANULOCYTE % (AUTO) 0.4 % (0.0-0.5); LYMPHOCYTES # (AUTO) 1.7 T/MM3 (1-4.8); LYMPHOCYTES % (AUTO) 31.9 % (23-45); MEAN CORPUSCULAR HGB 32.5 UUG (26-34); MEAN CORPUSCULAR VOLUME 98.4 UM3 (80-100); MONOCYTES # (AUTO) 0.4 T/MM3 (0-0.8); MONOCYTES % (AUTO) 7.4 % (0-9.0); NEUTROPHILS #(AUTO)-ABSOLUTE 3.2 T/MM3 (1.8-7.7); NEUTROPHILS % (AUTO) 58.2 % (33-66); RED BLOOD COUNT 1.91 M/MM3 (4.00-5.20); WBC - WHITE BLOOD COUNT 5.4 T/MM3 (4.5-11.0)
[2016-08-18 06:49] LABS: ANION GAP 4 MEQ/L (5-15); BUN/CREATININE RATIO 44 RATIO (6-26); CALCIUM 8.5 MG/DL (8.4-10.2); CHLORIDE 109 MEQ/L (98-107); CO2 - CARBON DIOXIDE 26 MEQ/L (22-30); CREATININE 1.2 MG/DL (0.7-1.2); GLOMERULAR FILTRATION RATE 43; GLUCOSE 174 MG/DL (65-110); POTASSIUM 4.9 MEQ/L (3.6-5); SODIUM 139 MEQ/L (134-144)
[2016-08-18] MEDS ORDERED: DiphenhydrAMINE 25 MG CAPSULE PO ONE (08:00)
[2016-08-18] MEDS ORDERED: ACETAMINOPHEN 325 MG TABLET PO ONE (08:00)
[2016-08-18] MEDS: NORMAL SALINE 500 ML IV SCH ×2 (09:18→13:50)
[2016-08-18] MEDS: AMIODARONE 200 MG TABLET PO SCH ×2 (11:26→23:26)
--- NOTE | 2016-08-18 12:06 | NUR ---
BRIGHT NOVOA VISITED PT. CM EXPLAINED ROLE AND PROVIDED CONTACT INFORMATION. PT WOULD LIKE TO RETURN HOME-SHE LIVES WITH SISTER.PT HAS HAD HOME HEALTH IN THE PAST. HOWEVER IF PT NEEDS THERAPY AT TIME OF D/C SHE IS WILING TO GO TO [facility]. CM SPOKE WITH MIKE FROM [facility] AND THEY ARE AWARE OF PT STATUS AND POSSIBLE D/C TO [facility]. PT IS AWARE TO CONTACT CM IF NEEDS ARISE.
[2016-08-18] MEDS: PANTOPRAZOLE 40mg INJECTION IV SCH ×2 (12:35→23:27)
[2016-08-18] MEDS ORDERED: PHYTONADIONE 5mg/2.5ml ORAL SOLUTION PO ONE (13:00)
--- NOTE | 2016-08-18 18:19 | NUR ---
PROGRESS NOTE PT IS RESTING IN THE RECLINER AT THIS TIME, VITAL SIGNS STABLE, ON 1L OF O2 PER NC. ALERT NAD ORIENTED X3. THE PT HAS RECEIVED 2 UNITS OF BLOOD THIS SHIFT AND TOLERATED WELL, WAITING ON POST TRANSFUSION HEMOGLOBIN RESULTS AT THIS TIME. PT IS A X1 ASSIST TO AND FROM THE BED, PT HAS BEEN USING THE BED SIDE COMMODE AND CALL FOR HELP. PT HAD ONE SMALL BLACK MATEUS THIS SHIFT AND HAS HAD ADEQUATE URINE OUTPUT. THE PT HAS EATEN 100% OF ALL MEALS AND REMAINS ON A CLEAR LIQUID DIET. THIS RN SPOKE WITH DR. CALI AND RECEIVED ORDERS TO ACCESS THE PT'S PORT A CATH. POST TRANSFUSION THIS RN RECEIVED VERBAL ORDERS TO LOCK THE PT'S IV FLUIDS. NO OTHER CONCERNS NOTED AT THIS TIME, WILL CONTINUE TO MONITOR.
[2016-08-18] MEDS: INSULIN DETEMIR 100 UNIT/ML SQ SCH (23:27)
[2016-08-19 03:45] LABS: BASOPHILS % (AUTO) 0.5 % (0-2); EOSINOPHILS # (AUTO) 0.2 T/MM3 (0-0.5); EOSINOPHILS % (AUTO) 1.9 % (0-4); HCT - HEMATOCRIT 26.6 % (36-46); HGB - HEMOGLOBIN 8.7 GM/DL (12-16); IMMATURE GRANULOCYTE # (AUTO) 0.04 T/MM3 (0.00-0.03); IMMATURE GRANULOCYTE % (AUTO) 0.5 % (0.0-0.5); LYMPHOCYTES # (AUTO) 1.7 T/MM3 (1-4.8); LYMPHOCYTES % (AUTO) 20.9 % (23-45); MEAN CORPUSCULAR HGB CONC(MCHC 32.7 GM/DL (31-37); MEAN CORPUSCULAR VOLUME 97.8 UM3 (80-100); MEAN PLATELET VOLUME 9.9 UM3 (9.4-12.4); MONOCYTES # (AUTO) 0.6 T/MM3 (0-0.8); MONOCYTES % (AUTO) 7.1 % (0-9.0); NEUTROPHILS #(AUTO)-ABSOLUTE 5.7 T/MM3 (1.8-7.7); NEUTROPHILS % (AUTO) 69.1 % (33-66); RED BLOOD COUNT 2.72 M/MM3 (4.00-5.20); WBC - WHITE BLOOD COUNT 8.3 T/MM3 (4.5-11.0)
[2016-08-19 03:48] LABS: INR 1.51 (0.76-1.04); PROTHROMBIN TIME 16.5 SEC (9.31-12.49)
[2016-08-19 03:58] LABS: ALBUMIN 3.1 G/DL (3.5-5.0); ANION GAP 7 MEQ/L (5-15); BUN/CREATININE RATIO 35 RATIO (6-26); CALCIUM 8.7 MG/DL (8.4-10.2); CHLORIDE 109 MEQ/L (98-107); CO2 - CARBON DIOXIDE 28 MEQ/L (22-30); GLOMERULAR FILTRATION RATE 53; GLUCOSE 123 MG/DL (65-110); MAGNESIUM 2.4 MG/DL (1.6-2.3); POTASSIUM 4.6 MEQ/L (3.6-5); SODIUM 144 MEQ/L (134-144)
[2016-08-19 04:32] LABS: PHOSPHORUS 2.8 MG/DL (2.5-4.5)
--- NOTE | 2016-08-19 07:30 | NUR ---
SHIFT STATUS/SUMMARY Report received in SBAR. All cares assumed. Introduced self. Assessment complete. See flowsheet. Pt is very pleasant. A&Ox3, PERRL, MAETC. 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 Pt is able to stand and [place] [facility] [place]. Pt BLungs CTA, BSAx4, Pulses are good et equal. Bilateral Buttocks red with errythema appears to be old PU, will cont to turn with pillows to relieve pressure. R Upper Chest PAC accessed, patent, flushes et draws. Pt has no complaints throughout the evening and was able to rest for most of shift. AM HGB stable. Will cont to monitor. Report given in SBAR at BS. All cares resigned.
[2016-08-19 07:50] VITALS: BP 140/67; PULSE 76; RESP 16; TEMP 96.5; O2SAT 100
[2016-08-19] MEDS: ACETAMINOPHEN 500 MG TABLET PO PRN (07:52)
[2016-08-19 07:53] LABS: HGB - HEMOGLOBIN 8.2 GM/DL (12-16)
[2016-08-19] MEDS: PANTOPRAZOLE 40mg INJECTION IV SCH ×2 (10:50→21:35)
[2016-08-19] MEDS: AMIODARONE 200 MG TABLET PO SCH (10:50)
[2016-08-19 11:07] VITALS: PULSE 76; RESP 16
[2016-08-19] MEDS: POLYETHYL.GLYCOL 3350 PACKET 17gm PO SCH (14:20)
--- NOTE | 2016-08-19 14:36 | PNPDOC ---
FIDE ROSS V HE[employer] CLUB ATTENDANT 08/19/16 1420: Subjective Date DATE: 08/19/16 TIME: 14:17 Subjective Angela is seen this afternoon while up in the chair reading a book. She is noted to be mildly pale in color. She is alert and pleasant and denies having any pain. Overall, states that she is feels stronger today following the blood transfusion. She questions if swallowing big pills have caused her to have the bleeding. We discussed her cancer as well as recently elevated INR. She is nervous about GI bleeding. She denies having any nausea or abdominal pain. She has tolerated liquid diet and would like to advance as she is tolerating this well. Passing flatus however no bowel movement since last . Objective Vital Signs Vital signs Vital Signs Date Time Temp Pulse Resp B/P Pulse Ox O2 Delivery O2 Flow Rate FiO2 08/19/16 11:07 76 16 08/19/16 07:50 96.5 140/67 100 Nasal Cannula 1.00 Telemetry Rhythm: Sinus Rhythm Height (Feet): 5 Height (Inches): 4.00 Weight (Kilograms): 78.500 General General Appearance: Alert, Orientated x 3, Cooperative, No Acute Distress Eyes (Brief) Eyes: FOUND: EOMI ENMT (Brief) ENMT: FOUND: mucosa moist, normal dentition, NOT FOUND: pharnyx erythema Neck (Brief) Neck: FOUND: midline, NOT FOUND: adenopathy, carotid bruits, tracheal deviation Respiratory (Brief) Respiratory: FOUND: clear all cardoso, equal bilaterally, NOT FOUND: wheezes Cardiovascular (Brief) Cardiac: FOUND: regular rate, regular rhythm, NOT FOUND: murmur, pedal edema Capillary Refill: <2 sec Abdomen (Brief) Abdominal: FOUND: BS normo active x4, soft, NOT FOUND: distended, tender Lymphatic (Brief) Lymphatic: NOT FOUND: adenopathy Musculoskeletal (Brief) Musculoskeletal: NOT FOUND: tenderness Integumentary (Brief) Integumentary: FOUND: dry, warm Comments Pale Neurologic (Brief) Neurological: FOUND: cranial 2-12 intact Psychiatric (Brief) Psychiatric: FOUND: alert, attentive, normal affect, oriented Laboratory Laboratory Laboratory Tests 08/17/16 18:44 08/18/16 06:21 08/19/16 03:14 Laboratory Tests 08/17/16 18:24 08/18/16 06:21 08/18/16 17:51 08/19/16 03:14 08/19/16 07:20 08/19/16 11:42 Assessment & Plan Assessment Esophageal cancer for which the patient recently restarted chemotherapy Probable upper GI bleed-continue Protonix, clear liquids, will discuss with surgeons whether or not to proceed with EGD versus simply stop Coumadin and see if there are signs of continued bleeding area did Acute blood loss anemia-transfuse 2 units of blood today. Recheck hemoglobin and every 6 hours hemoglobin. Atrial fibrillation-hold Coumadin, review med list, patient is not likely still on high-dose amiodarone Acute kidney injury-improved with IV fluids Hyperkalemia-resolved Type 2 diabetes mellitus-continue sliding scale insulin for now, consider adding Levemir CHF with ejection fraction of 45% and pulmonary hypertension-currently stable Hypertension-stable blood pressure off of lisinopril and Norvasc which are on hold from recent acute blood loss anemia COPD-without exacerbation-continue breathing treatments and supplemental oxygen as usual Coagulopathy secondary to Coumadin-given oral vitamin K because of GI bleeding Plan/Intensity of Service 08/19/16 Continue to monitor for evidence acute bleeding. Continue Protonix twice a day for GI protection. No bowel movements since admission, Added Miralax today. Wean off oxygen as able. Sats have been 100% on 1 liter. Continue to monitor blood sugars on current regimen of Levemir 10 units at at bedtime and sliding scale Novolin Patient is tolerating liquid diet well. Will advance to regular diet. Continue to monitor serial hemoglobin, currently 8.0 Will discuss further plan of care with Dr Carrillo Code Status Full Code, unverified Hospital Course Summary Disclaimer The hospital course summary below is not to be considered part of the above Progress Note. Hospital Course Summary Addendum 08/18/2016 at 2 PM [address] talked with Dr. Rose who is on-call for Dr. Lopez. He would recommend continuing off of Coumadin and only doing an EGD if the patient continues to have bleeding despite normalization of INR. We'll continue with Protonix IV for now. Will consult Dr. Rose if the patient has continued bleeding issues. 08/19/16 Continue to monitor for evidence acute bleeding. Continue Protonix twice a day for GI protection. No bowel movements since admission, Added Miralax today. Wean off oxygen as able. Sats have been 100% on 1 liter. Continue to monitor blood sugars on current regimen of Levemir 10 units at at bedtime and sliding scale Novolin Patient is tolerating liquid diet well. Will advance to regular diet. Continue to monitor serial hemoglobin, currently 8.0 Will discuss further plan of care with IAN Beaulieu MD 08/19/168: Assessment & Plan Assessment 08/19/2016-I reviewed this chart, the patient history, and the HEALTH CLUB ATTENDANT's/PA's documented findings as above. We discussed and formulated the assessment and plan as above with the additions below.-Dr. Carrillo The patient is doing well today. She states she walked in the halls and denied any lightheadedness or chest pain. She denies any shortness of breath. She states she feels constipated. She had a small black stool yesterday. She is tolerating clear liquids and we are advancing to a regular diet this evening. Hemoglobin is 8.0 today. Hemoglobin yesterday was 6.2 prior to transfusion of 2 units of blood. With her active esophageal cancer on chemotherapy, we may need to transfuse again if hemoglobin drops any further. BUN continues to decrease and is 35 today down from 53 yesterday and 66 the night before. Creatinine also is improving and is 1.0 today. On exam the patient is alert and mildly pale. Chest is clear to auscultation. Cardiovascular reveals a regular rate and rhythm. Abdomen is soft and nontender. Extremities are free of edema. At this time, plan is to monitor hemoglobin. Transfuse if needed. Plan for EGD only if she appears to continue to have problems with bleeding off of Coumadin. Continue to hold Coumadin at this time. We'll discuss further with her oncologist tomorrow. FIDE ROSS APRN Aug 19, 2016 14:20 INA CARRILLO MD Aug 19, 2016 19:28
[2016-08-19 15:51] VITALS: BP 156/66; PULSE 99; RESP 16; TEMP 96.4; O2SAT 100
[2016-08-19 16:58] LABS: HGB - HEMOGLOBIN 7.9 GM/DL (12-16)
--- NOTE | 2016-08-19 18:38 | NUR ---
PROGRESS NOTE PT IS ALERT AND ORIENTED X3. VITAL SIGNS STABLE, ON 1L O2 PER NC. PT IS A X1 ASSIST WITH GAITBELT, WALKER, AND BOOT. PT HAS BEEN UP TO THE BEDSIDE COMMODE AND THE BATHROOM TODAY AND HAS WALKED THE HALLS X2. PT WAS ADVANCE FROM A CLEAR LIQUID DIET TO A REGULAR DIET FOR DINNER AND HAS TOLERATED WELL. PT WAS GIVEN FIRST SCHEDULED DOSE OF MIRALAX THIS AM AND HAS NOT HAD A BOWEL MOVEMENT THIS SHIFT. ADEQUATE URINE OUTPUT. PT HAS PORT A CATH ACCESS TO HER RIGHT UPPER CHEST THAT FLUSHES AND ASPIRATES WELL. PT DENIES PAIN, AND IS SITTING UP IN THE RECLINER AT THIS TIME, CALL LIGHT WITHIN REACH. NO CONCERNS NOTED AT THIS TIME, WILL CONTINUE TO MONITOR.
[2016-08-19 20:31] VITALS: O2SAT 100
[2016-08-19] MEDS: INSULIN DETEMIR 100 UNIT/ML SQ SCH (21:34)
[2016-08-19 23:15] LABS: HGB - HEMOGLOBIN 7.3 GM/DL (12-16)
[2016-08-20 00:01] VITALS: BP 142/58; PULSE 69; RESP 16; TEMP 98.3; O2SAT 99
--- NOTE | 2016-08-20 00:27 | NUR ---
PROVIDER NOTIFICATION Notified Dr. Chawla via [employer] that patient's Hgb had returned a value of 7.3. Reviewed vitals and INR history. Dr. Chawla determined that we should continue to monitor and notify of next result. Will continue to monitor.
--- NOTE | 2016-08-20 01:28 | NUR ---
Chart Check 24 hour chart check completed
--- NOTE | 2016-08-20 05:08 | NUR ---
SHIFT SUMMARY PATIENT HAS BEEN ALERT AND ORIENTED X3 THIS SHIFT. VITAL SIGNS HAVE BEEN STABLE ON 1L O2 BY NC. PATIENT HAS DENIED ANY PAIN, SOA, N/V THIS SHIFT. PATIENT HAS NOT HAD A BOWEL MOVEMENT THIS SHIFT. PATIENT'S HGB WAS REPORTED TO THE MINER ASSISTANT VIA [employer]; INSTRUCTED TO CONTINUE MONITORING PATIENT. PATIENT HAS BEEN UNABLE TO GET COMFORTABLE IN BED, SO WAS ASSISTED TO THE RECLINER AND HAS SLEPT WELL SINCE. WILL CONTINUE TO MONITOR.
[2016-08-20 05:23] LABS: HGB - HEMOGLOBIN 6.9 GM/DL (12-16)
[2016-08-20 05:35] LABS: ANION GAP 6 MEQ/L (5-15); BUN/CREATININE RATIO 30 RATIO (6-26); CALCIUM 8.5 MG/DL (8.4-10.2); CHLORIDE 110 MEQ/L (98-107); CO2 - CARBON DIOXIDE 27 MEQ/L (22-30); GLOMERULAR FILTRATION RATE 53; GLUCOSE 101 MG/DL (65-110); POTASSIUM 4.5 MEQ/L (3.6-5); SODIUM 143 MEQ/L (134-144)
--- NOTE | 2016-08-20 05:49 | NUR ---
PROVIDER NOTIFICATION Notified Dr Chawla via [employer] of patient's Hgb result of 6.[address] Chawla directed to give unit of LRPRB that is ready in the lab. Ordered 650mg Tylenol predose. Will continue to monitor.
[2016-08-20] MEDS ORDERED: ACETAMINOPHEN 325 MG TABLET PO ONE (06:30)
[2016-08-20 06:42] VITALS: BP 160/67; PULSE 64; RESP 16; TEMP 97.2; O2SAT 100
--- NOTE | 2016-08-20 08:15 | NUR ---
DM screen Diet: CL; Pt gave positive response to 4 DM care behaviors. Blood sugar wnl. False positive.
[2016-08-20] MEDS ORDERED: NORMAL SALINE 500 ML IV SCH (08:55)
[2016-08-20 08:58] VITALS: BP 143/64; PULSE 95; RESP 20; TEMP 96; O2SAT 100
--- NOTE | 2016-08-20 09:12 | NUR ---
PROGRESS NOTE PT WALKED THE HALLS WITH SON AT THIS TIME. PT STABLE ON FEET, NO DIZZINESS NOTED. WILL CONTINUE TO MONITOR. Addendum: 08/20/16 at 0913 by NINA BUSTILLO RN WRONG PATIENT
[2016-08-20] MEDS: AMIODARONE 200 MG TABLET PO SCH (09:14)
[2016-08-20] MEDS: BUMETANIDE 1 MG TABLET PO SCH (09:15)
[2016-08-20] MEDS: POLYETHYL.GLYCOL 3350 PACKET 17gm PO SCH (09:16)
[2016-08-20] MEDS: CARVEDILOL 6.25 MG TABLET PO SCH ×2 (09:16→17:50)
[2016-08-20] MEDS: PANTOPRAZOLE 40mg INJECTION IV SCH ×2 (10:12→21:36)
[2016-08-20 11:16] VITALS: PULSE 95; RESP 20
[2016-08-20] MEDS: INSULIN REGULAR 100 UNIT/ML SQ PRN (12:21)
[2016-08-20 14:50] LABS: HGB - HEMOGLOBIN 9.6 GM/DL (12-16)
[2016-08-20 16:07] VITALS: BP 135/62; PULSE 66; RESP 16; TEMP 97; O2SAT 100
--- NOTE | 2016-08-20 16:35 | NUR ---
PROGRESS NOTE PT IS ALERT AND ORIENTED X3. VITAL SIGNS STABLE, ON 1L O2 PER NC. THE PT IS CURRENTLY RESTING IN THE RECLINER AT BEDSIDE. PT HAS RIGHT UPPER CHEST PORT A CATH THAT IS SALINE LOCKED AT THIS TIME. PT HAS RECEIVED 2 UNITS OF PACKED RED CELLS THIS SHIFT, VITAL SIGNS STABLE THROUGHOUT ENTIRE INFUSION, PT TOLERATED WELL. PT IS A X1 ASSIST TO THE BEDSIDE COMMODE/BATHROOM WITH A GAITBELT, WALKER AND BOOT. PT HAS HAD ADEQUATE URINE OUTPUT AND NO BOWEL MOVEMENT THIS SHIFT. PT HAS CALL LIGHT WITHIN REACH AND CHAIR ALARM ACTIVATED. LAST HEMOGLOBIN DRAW RESULT WAS 9.6. WILL CONTINUE TO MONITOR.
[2016-08-20 16:42] LABS: HGB - HEMOGLOBIN 9.6 GM/DL (12-16)
--- NOTE | 2016-08-20 17:27 | NUR ---
BRIGHT THIS WORKER MET WITH PT ON THIS DATE. THIS WORKER REVIEWED DISCHARGE PLAN. PT IS WANTING TO RETURN HOME TO LIVE WITH SISTER. PT REPORTED THAT SHE HAS GOOD SUPPORT FROM SISTER AND A NEIGHBOR. PT REPORTED THAT SHE WOULD BE WILLING TO GO TO IF NEEDING TO GO TO A "[facility]." PT WOULD LIKE TO VISIT WITH HER SISTER THIS EVENING TO EVALUATE HER DISCHARGE NEEDS. CASE MANAGEMENT TO FOLLOW AND ASSIST IN DISCHARGE PLANNING.
[2016-08-20] MEDS: INSULIN DETEMIR 100 UNIT/ML SQ SCH (21:36)
--- NOTE | 2016-08-20 22:33 | PNPDOC ---
Subjective Date DATE: 08/20/16 TIME: 22:22 Subjective The patient was seen earlier this evening accompanied by her sister. Patient had a drop in her hemoglobin today down to 6.9. It was 7.3 last night. She received 2 units of blood today. She is feeling well and has no complaints. She denies any shortness of breath or chest pain. She has not had a bowel movement yet. She denies any abdominal pain. She denies any lightheadedness. She is urinating well. Objective Vital Signs Vital signs Vital Signs Date Time Temp Pulse Resp B/P Pulse Ox O2 Delivery O2 Flow Rate FiO2 08/20/16 20:33 Nasal Cannula 0.50 08/20/16 16:07 97.0 66 16 135/62 100 GEN-alert, oriented, no acute distress HEENT-sclera anicteric, oropharynx is moist NECK-supple CV-regular rate and rhythm CHEST-her to auscultation bilaterally ABD-soft, nontender, nondistended with positive bowel sounds -no [place] EXT-no edema NEURO-no focal deficits SKIN-warm and dry and without rashes Telemetry Rhythm: Sinus Rhythm Height (Feet): 5 Height (Inches): 4.00 Weight (Kilograms): 74.800 Laboratory Laboratory Laboratory Tests 08/19/16 03:14 08/20/16 04:40 Laboratory Tests 08/19/16 03:14 08/19/16 07:20 08/19/16 11:42 08/19/16 16:51 08/19/16 23:00 08/20/16 04:40 08/20/16 14:25 08/20/16 16:33 Assessment & Plan Assessment Impression and plan Recurrent esophageal cancer for which the patient recently restarted chemotherapy GI bleed-most likely upper and related to esophageal cancer with coagulopathy and INR up to 6 last week Acute blood loss anemia-the patient was given 2 units of blood on the and another 2 units of blood today. Consider EGD if the patient appears to have recurrent bleeding. Her BUN has been trending down which goes against continued bleeding. Will see if hemoglobin stabilizes. Will decrease frequency of hemoglobin monitoring. Atrial fibrillation-amiodarone decreased to 200 mg daily. Continue to hold Coumadin. I think the risk of resuming Coumadin in the future outweighs the benefit. We'll continue off Coumadin for now. Acute kidney injury-improved with IV fluids Hyperkalemia-resolved Type 2 diabetes mellitus-continue sliding scale insulin for now, consider adding Levemir CHF with ejection fraction of 45% and pulmonary hypertension-currently stable Hypertension-stable blood pressure off of lisinopril and Norvasc which are on hold from recent acute blood loss anemia. She continues on Coreg. COPD-without exacerbation-continue breathing treatments and supplemental oxygen as usual Coagulopathy secondary to Coumadin-improved with holding Coumadin and giving vitamin K Because of the need for repeat transfusion today I did switch the patient back to clear liquids. If hemoglobin is stable tomorrow can likely advance diet. Chemotherapy is currently on hold while the patient is in the hospital with GI bleed. The patient's oncologist is Dr. Newman. CBC and basic metabolic profile tomorrow. Code Status Full Code, unverified Hospital Course Summary Disclaimer The hospital course summary below is not to be considered part of the above Progress Note. Hospital Course Summary Addendum 08/18/2016 at 2 PM [address] with Dr. Rose who is on-call for Dr. Lopez. He would recommend continuing off of Coumadin and only doing an EGD if the patient continues to have bleeding despite normalization of INR. We'll continue with Protonix IV for now. Will consult Dr. Rose if the patient has continued bleeding issues. 08/19/16 Continue to monitor for evidence acute bleeding. Continue Protonix twice a day for GI protection. No bowel movements since admission, Added Miralax today. Wean off oxygen as able. Sats have been 100% on 1 liter. Continue to monitor blood sugars on current regimen of Levemir 10 units at at bedtime and sliding scale Novolin Patient is tolerating liquid diet well. Will advance to regular diet. Continue to monitor serial hemoglobin, currently 8.0 Will discuss further plan of care with Dr Carrillo 08/19/2016-I reviewed this chart, the patient history, and the BLADE GRADER OPERATOR's/PA's documented findings as above. We discussed and formulated the assessment and plan as above with the additions below.-Dr. Carrillo The patient is doing well today. She states she walked in the halls and denied any lightheadedness or chest pain. She denies any shortness of breath. She states she feels constipated. She had a small black stool yesterday. She is tolerating clear liquids and we are advancing to a regular diet this evening. Hemoglobin is 8.0 today. Hemoglobin yesterday was 6.2 prior to transfusion of 2 units of blood. With her active esophageal cancer on chemotherapy, we may need to transfuse again if hemoglobin drops any further. BUN continues to decrease and is 35 today down from 53 yesterday and 66 the night before. Creatinine also is improving and is 1.0 today. On exam the patient is alert and mildly pale. Chest is clear to auscultation. Cardiovascular reveals a regular rate and rhythm. Abdomen is soft and nontender. Extremities are free of edema. At this time, plan is to monitor hemoglobin. Transfuse if needed. Plan for EGD only if she appears to continue to have problems with bleeding off of Coumadin. Continue to hold Coumadin at this time. We'll discuss further with her oncologist tomorrow. IAN CARRILLO MD Aug 20, 2016 22:25
[2016-08-21] VITALS (7 sets, daily range): BP systolic 142–157; BP diastolic 64–67; PULSE 64–90; RESP 16–18; TEMP 97.6–98.4; O2SAT 97–99
--- NOTE | 2016-08-21 01:44 | NUR ---
Chart Check 24 hour chart check completed
[2016-08-21] MEDS: MILK OF MAGNESIA 30 ML SUSP PO PRN (02:44)
--- NOTE | 2016-08-21 02:45 | NUR ---
PRN OFFERED AND GAVE MILK OF MAG 30ML PRN CONSTIPATION. PT DID NOT WANT TO WAIT UNTIL A.M., SHE HOPED IT WOULD WORK EARLY TODAY.
[2016-08-21 04:51] LABS: BASOPHILS % (AUTO) 0.4 % (0-2); EOSINOPHILS # (AUTO) 0.3 T/MM3 (0-0.5); EOSINOPHILS % (AUTO) 4.1 % (0-4); HCT - HEMATOCRIT 29.7 % (36-46); HGB - HEMOGLOBIN 9.9 GM/DL (12-16); IMMATURE GRANULOCYTE # (AUTO) 0.16 T/MM3 (0.00-0.03); IMMATURE GRANULOCYTE % (AUTO) 2.2 % (0.0-0.5); LYMPHOCYTES # (AUTO) 1.9 T/MM3 (1-4.8); MEAN CORPUSCULAR HGB 31.3 UUG (26-34); MEAN CORPUSCULAR HGB CONC(MCHC 33.3 GM/DL (31-37); MEAN PLATELET VOLUME 9.7 UM3 (9.4-12.4); MONOCYTES # (AUTO) 0.8 T/MM3 (0-0.8); MONOCYTES % (AUTO) 10.6 % (0-9.0); NEUTROPHILS % (AUTO) 55.7 % (33-66); RED BLOOD COUNT 3.16 M/MM3 (4.00-5.20); WBC - WHITE BLOOD COUNT 7.2 T/MM3 (4.5-11.0)
[2016-08-21 05:12] LABS: ANION GAP 9 MEQ/L (5-15); BUN/CREATININE RATIO 19 RATIO (6-26); CALCIUM 8.4 MG/DL (8.4-10.2); CHLORIDE 108 MEQ/L (98-107); CO2 - CARBON DIOXIDE 27 MEQ/L (22-30); CREATININE 1.1 MG/DL (0.7-1.2); GLOMERULAR FILTRATION RATE 48; GLUCOSE 88 MG/DL (65-110); POTASSIUM 4.1 MEQ/L (3.6-5); SODIUM 144 MEQ/L (134-144)
--- NOTE | 2016-08-21 06:26 | NUR ---
SHIFT SUMMARY PATIENT HAS BEEN ALERT AND ORIENTED X3 THIS SHIFT. VITAL SIGNS HAVE BEEN STABLE ON 1L NC. PATIENT HAS REPORTED NO PAIN THIS SHIFT. PATIENT AMBULATES WELL WITH 1 ASSIST, WALKER, AND BOOT. PATIENT DID HAVE DIFFICULTY SLEEPING IN THE NIGHT, BUT DENIED ANY DISCOMFORT, NAUSEA OR VOMITING. WILL CONTINUE TO MONITOR.
[2016-08-21] MEDS: AMIODARONE 200 MG TABLET PO SCH (08:28)
[2016-08-21] MEDS: BUMETANIDE 1 MG TABLET PO SCH (08:28)
[2016-08-21] MEDS: CARVEDILOL 6.25 MG TABLET PO SCH ×2 (08:28→17:40)
[2016-08-21] MEDS: PANTOPRAZOLE 40mg INJECTION IV SCH ×2 (08:28→21:48)
[2016-08-21] MEDS: POLYETHYL.GLYCOL 3350 PACKET 17gm PO SCH (08:28)
[2016-08-21] MEDS ORDERED: BISACODYL 10 MG SUPPOSITORY RECTALLY PRN (11:30)
--- NOTE | 2016-08-21 11:41 | PNPDOC ---
Subjective Date DATE: 08/21/16 TIME: 11:31 Subjective F/U: Acute GI Bleed Doing well this morning. Feels ready for regular food. No ab pain or pain with swallowing. Passing flatus, but has not had bowel movement. Not feeling crampy discomfort to abdomen. No nausea. Breathing well without SOA, cough or congestion. No chest pressure or pain. Up with nursing-strength feels stable. Urinating well. No f/c. Objective Vital Signs Vital signs Vital Signs Date Time Temp Pulse Resp B/P Pulse Ox O2 Delivery O2 Flow Rate FiO2 08/21/16 08:26 97.6 73 16 152/64 99 Nasal Cannula 1.00 Telemetry Rhythm: Sinus Rhythm Height (Feet): 5 Height (Inches): 4.00 Weight (Kilograms): 74.800 General General Appearance: Alert, Orientated x 3, Overweight, Well Nourished, Well Developed, Cooperative, Looks Stated Age Eyes (Brief) Eyes: FOUND: EOMI, PERRL, NOT FOUND: scleral icterus ENMT (Brief) ENMT: FOUND: hearing intact, mucosa moist Neck (Brief) Neck: FOUND: midline, NOT FOUND: nuchal rigidity, spasm Respiratory (Brief) Respiratory: FOUND: clear all cardoso, equal bilaterally, NOT FOUND: rales, wheezes Cardiovascular (Brief) Cardiac: FOUND: regular rate, regular rhythm, NOT FOUND: pedal edema Abdomen (Brief) Abdominal: FOUND: BS normo active x4, soft, NOT FOUND: distended, tender Extremities (Brief) Extremity : Side: Bilateral Extremity: leg Extremity Finding: NOT FOUND: edema Musculoskeletal (Brief) Musculoskeletal: FOUND: extremities move equally, NOT FOUND: deformity, loss of motion, spasm, tenderness Integumentary (Brief) Integumentary: FOUND: warm Neurologic (Brief) Neurological: FOUND: cranial 2-12 intact, motor (Intact ) Psychiatric (Brief) Psychiatric: FOUND: alert, attentive, normal affect, oriented Laboratory Laboratory Laboratory Tests 08/20/16 04:40 08/21/16 03:52 Laboratory Tests 08/19/16 11:42 08/19/16 16:51 08/19/16 23:00 08/20/16 04:40 08/20/16 14:25 08/20/16 16:33 08/21/16 03:52 Assessment & Plan Assessment Impression and plan Recurrent esophageal cancer for which the patient recently restarted chemotherapy GI bleed-most likely upper and related to esophageal cancer with coagulopathy and INR up to 6 last week Acute blood loss anemia-the patient was given 2 units of blood on the and another 2 units of blood today. Consider EGD if the patient appears to have recurrent bleeding. Her BUN has been trending down which goes against continued bleeding. Will see if hemoglobin stabilizes. Will decrease frequency of hemoglobin monitoring. Atrial fibrillation-amiodarone decreased to 200 mg daily. Continue to hold Coumadin. I think the risk of resuming Coumadin in the future outweighs the benefit. We'll continue off Coumadin for now. Acute kidney injury-improved with IV fluids Hyperkalemia-resolved Type 2 diabetes mellitus-continue sliding scale insulin for now, consider adding Levemir CHF with ejection fraction of 45% and pulmonary hypertension-currently stable Hypertension-stable blood pressure off of lisinopril and Norvasc which are on hold from recent acute blood loss anemia. She continues on Coreg. COPD-without exacerbation-continue breathing treatments and supplemental oxygen as usual Coagulopathy secondary to Coumadin-improved with holding Coumadin and giving vitamin K Because of the need for repeat transfusion today I did switch the patient back to clear liquids. If hemoglobin is stable tomorrow can likely advance diet. Chemotherapy is currently on hold while the patient is in the hospital with GI bleed. The patient's oncologist is Dr. Newman. CBC and basic metabolic profile tomorrow. Plan/Intensity of Service Advance to 2000 KCAL ADA regular diet. Will start Carafate with meals and HS to help protect esophagus. PT/OT eval/treat due to gen debility from this acute episode of illness. Restart Norvasc - will keep Lisinopril on hold due to JELLY at presentation. Recheck hemoglobin this afternoon. Continue to hold Coumadin. Recheck CMP and CBC in am. Possible home tomorrow if continues to do well. Case discussed with nursing. Time spent with pt care 35 minutes. Code Status Full Code, unverified Hospital Course Summary Disclaimer The hospital course summary below is not to be considered part of the above Progress Note. Hospital Course Summary Addendum 08/18/2016 at [address] Rose who is on-call for Dr. Lopez. He would recommend continuing off of Coumadin and only doing an EGD if the patient continues to have bleeding despite normalization of INR. We'll continue with Protonix IV for now. Will consult Dr. Rose if the patient has continued bleeding issues. 08/19/16 Continue to monitor for evidence acute bleeding. Continue Protonix twice a day for GI protection. No bowel movements since admission, Added Miralax today. Wean off oxygen as able. Sats have been 100% on 1 liter. Continue to monitor blood sugars on current regimen of Levemir 10 units at at bedtime and sliding scale Novolin Patient is tolerating liquid diet well. Will advance to regular diet. Continue to monitor serial hemoglobin, currently 8.0 Will discuss further plan of care with Dr Carrillo 08/19/2016-I reviewed this chart, the patient history, and the ART OBJECTS SUPERVISOR's/PA's documented findings as above. We discussed and formulated the assessment and plan as above with the additions below.-Dr. Carrillo The patient is doing well today. She states she walked in the halls and denied any lightheadedness or chest pain. She denies any shortness of breath. She states she feels constipated. She had a small black stool yesterday. She is tolerating clear liquids and we are advancing to a regular diet this evening. Hemoglobin is 8.0 today. Hemoglobin yesterday was 6.2 prior to transfusion of 2 units of blood. With her active esophageal cancer on chemotherapy, we may need to transfuse again if hemoglobin drops any further. BUN continues to decrease and is 35 today down from 53 yesterday and 66 the night before. Creatinine also is improving and is 1.0 today. On exam the patient is alert and mildly pale. Chest is clear to auscultation. Cardiovascular reveals a regular rate and rhythm. Abdomen is soft and nontender. Extremities are free of edema. At this time, plan is to monitor hemoglobin. Transfuse if needed. Plan for EGD only if she appears to continue to have problems with bleeding off of Coumadin. Continue to hold Coumadin at this time. We'll discuss further with her oncologist tomorrow. 08/20 Because of the need for repeat transfusion today I did switch the patient back to clear liquids. If hemoglobin is stable tomorrow can likely advance diet. Chemotherapy is currently on hold while the patient is in the hospital with GI bleed. The patient's oncologist is Dr. Newman. CBC and basic metabolic profile tomorrow. 08/21 Doing well this morning. Feels ready for regular food. No ab pain or pain with swallowing. Passing flatus, but has not had bowel movement. Not feeling crampy discomfort to abdomen. No nausea. Breathing well without SOA, cough or congestion. No chest pressure or pain. Up with nursing-strength feels stable. Urinating well. No f/c. Hemoglobin 9.9 this am. BUN decreased to 21 with creatinine 1.1. Advance to 2000 KCAL ADA regular diet. Will start Carafate with meals and HS to help protect esophagus. PT/OT eval/treat due to gen debility from this acute episode of illness. Restart Norvasc - will keep Lisinopril on hold due to JELLY at presentation. Recheck hemoglobin this afternoon. Continue to hold Coumadin. Recheck CMP and CBC in am. Possible home tomorrow if continues to do well. HARINI SOUZA MD Aug 21, 2016 11:35
[2016-08-21] MEDS: SUCRALFATE 1 G TABLET PO SCH ×3 (12:20→21:48)
[2016-08-21] MEDS: AMLODIPINE 2.5 MG TABLET PO SCH (12:20)
--- NOTE | 2016-08-21 15:23 | NUR ---
BRIGHT THIS WORKER MET WITH PT ON THIS DATE. PT REPORTED THAT SHE FEELS THAT SHE CAN SAFELY GO HOME TO BE WITH HER SISTER. PT EXPLAINED THAT SHE WOULD LIKE TO HAVE HOME HEALTH SERVICES. A LIST OF HOME HEALTH WAS OFFERED, BUT PT DECLINED STATING THAT SHE WOULD JUST LIKE TO GO THROUGH THE HOME HEALTH THROUGH THE HOSPITAL. 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 PT DECLINED ANY OTHER SERVICES AT THIS TIME. CASE MANAGEMENT WILL CONTINUE TO FOLLOW AND ASSIST IN DISCHARGE PLAN.
[2016-08-21] MEDS: DOCUSATE SODIUM 100 MG CAPSULE PO SCH ×2 (15:31→21:48)
--- NOTE | 2016-08-21 16:27 | NUR ---
STATUS PT A/O X3. UP WITH ASSIST OF ONE WITH BOOT ON RIGHT LEG, WALKER, AND GAIT BELT. PT DENIES NAUSEA, SOA, OR PAIN. PT ON 1L O2 PER NC, PT STATES THIS IS WHAT SHE WEARS AT HOME. PRN DULCOLAX SUPPOSITORY GIVEN AND PT DID HAVE SMALL HARD BOWEL MOVEMENT. ADEQAUTE OUTPUT. TOLERATING REGULAR DIET WELL. AMBULATING IN HALLS WITH ASSIST OF ONE. PT RESTING IN CHAIR WITH ALARM. CALL LIGHT WITHIN REACH. WILL CONTINUE TO MONITOR.
[2016-08-21 17:06] LABS: HCT - HEMATOCRIT 31.7 % (36-46); HGB - HEMOGLOBIN 10.5 GM/DL (12-16)
[2016-08-21] MEDS: INSULIN DETEMIR 100 UNIT/ML SQ SCH (21:49)
[2016-08-21] MEDS: INSULIN REGULAR 100 UNIT/ML SQ PRN (21:49)
[2016-08-22] VITALS: BP 138/62; PULSE 60; RESP 16; TEMP 96.7; O2SAT 98
--- NOTE | 2016-08-22 02:50 | NUR ---
Chart Check 24 hour chart check completed
[2016-08-22 05:15] LABS: BASOPHILS % (AUTO) 0.3 % (0-2); EOSINOPHILS # (AUTO) 0.2 T/MM3 (0-0.5); EOSINOPHILS % (AUTO) 3.3 % (0-4); HCT - HEMATOCRIT 28.7 % (36-46); HGB - HEMOGLOBIN 9.4 GM/DL (12-16); IMMATURE GRANULOCYTE % (AUTO) 1.5 % (0.0-0.5); MEAN CORPUSCULAR HGB 31.3 UUG (26-34); MEAN CORPUSCULAR HGB CONC(MCHC 32.8 GM/DL (31-37); MEAN CORPUSCULAR VOLUME 95.7 UM3 (80-100); MEAN PLATELET VOLUME 9.5 UM3 (9.4-12.4); MONOCYTES # (AUTO) 0.9 T/MM3 (0-0.8); NEUTROPHILS #(AUTO)-ABSOLUTE 3.4 T/MM3 (1.8-7.7); NEUTROPHILS % (AUTO) 51.9 % (33-66); WBC - WHITE BLOOD COUNT 6.6 T/MM3 (4.5-11.0)
[2016-08-22 05:37] LABS: ANION GAP 6 MEQ/L (5-15); BUN/CREATININE RATIO 18 RATIO (6-26); CALCIUM 8.5 MG/DL (8.4-10.2); CHLORIDE 107 MEQ/L (98-107); CO2 - CARBON DIOXIDE 28 MEQ/L (22-30); CREATININE 1.1 MG/DL (0.7-1.2); GLOMERULAR FILTRATION RATE 48; GLUCOSE 100 MG/DL (65-110); POTASSIUM 4.4 MEQ/L (3.6-5); SODIUM 141 MEQ/L (134-144)
[2016-08-22] MEDS: SUCRALFATE 1 G TABLET PO SCH ×2 (05:48→11:46)
--- NOTE | 2016-08-22 06:40 | NUR ---
STATUS PATIENT A/OX3. PATIENT SLEPT OFF AND ON BETWEEN CARES. PATIENT AMBULATED TO BATHROOM WITH ASSIST ONE WITH BOOT ON RIGHT LEG. ON O2 1L PER NC. DENIES CHEST PAIN,SOA,OR N/V. PATIENT RESTING IN CHAIR WITH ALARM AT THIS TIME. NO BM DURING NIGHT. CALL LIGHT WITHIN REACH. CONTINUE TO MONITOR.
[2016-08-22] MEDS: MILK OF MAGNESIA 30 ML SUSP PO PRN (07:44)
[2016-08-22 07:52] VITALS: BP 137/64; PULSE 75; RESP 12; TEMP 97; O2SAT 99
[2016-08-22] MEDS: BUMETANIDE 1 MG TABLET PO SCH (08:54)
[2016-08-22] MEDS: AMIODARONE 200 MG TABLET PO SCH (08:55)
[2016-08-22] MEDS: DOCUSATE SODIUM 100 MG CAPSULE PO SCH (08:55)
[2016-08-22] MEDS: AMLODIPINE 2.5 MG TABLET PO SCH (08:55)
[2016-08-22] MEDS: POLYETHYL.GLYCOL 3350 PACKET 17gm PO SCH (08:55)
[2016-08-22] MEDS: CARVEDILOL 6.25 MG TABLET PO SCH (08:55)
[2016-08-22] MEDS: PANTOPRAZOLE 40mg INJECTION IV SCH (08:56)
[2016-08-22] MEDS ORDERED: ASCORBIC ACID 500 MG TABLET PO SCH (09:00)
[2016-08-22 10:28] VITALS: PULSE 75; RESP 12
--- NOTE | 2016-08-22 11:37 | PNPDOC ---
Subjective Date DATE: 08/22/16 TIME: 11:27 Subjective F/U: Acute GI Bleed, Anemia secondary to acute blood loss Doing well overall, except not passing stool. Not feeling nauseated or having ab pain. Eating well-no pain with eating or feeling food catch as she swallows. Breathing well without SOA, cough or congestion. Strength improving-ambulating better. Objective Vital Signs Vital signs Vital Signs Date Time Temp Pulse Resp B/P Pulse Ox O2 Delivery O2 Flow Rate FiO2 08/22/16 10:28 75 12 08/22/16 07:52 97.0 137/64 99 Nasal Cannula 1.00 Telemetry Rhythm: Sinus Rhythm Height (Feet): 5 Height (Inches): 4.00 Weight (Kilograms): 74.000 General General Appearance: Alert, Orientated x 3, Overweight, Well Nourished, Well Developed, Cooperative, No Acute Distress, Looks Stated Age Eyes (Brief) Eyes: FOUND: EOMI, PERRL, NOT FOUND: scleral icterus ENMT (Brief) ENMT: FOUND: hearing intact, mucosa moist Neck (Brief) Neck: FOUND: midline, NOT FOUND: nuchal rigidity, spasm Respiratory (Brief) Respiratory: FOUND: clear all cardoso, equal bilaterally, NOT FOUND: rales, wheezes Cardiovascular (Brief) Cardiac: FOUND: regular rate, regular rhythm, NOT FOUND: pedal edema Abdomen (Brief) Abdominal: FOUND: BS normo active x4, soft, NOT FOUND: distended, tender Extremities (Brief) Extremity : Side: Bilateral Extremity: leg Extremity Finding: FOUND: other (SCD in place ), NOT FOUND: edema Musculoskeletal (Brief) Musculoskeletal: FOUND: extremities move equally, NOT FOUND: deformity, spasm Integumentary (Brief) Integumentary: FOUND: dry, warm Neurologic (Brief) Neurological: FOUND: cranial 2-12 intact, motor (Intact ) Psychiatric (Brief) Psychiatric: FOUND: alert, attentive, normal affect, oriented Laboratory Laboratory Laboratory Tests 08/21/16 03:52 08/22/16 04:53 Laboratory Tests 08/20/16 14:25 08/20/16 16:33 08/21/16 03:52 08/21/16 16:28 08/22/16 04:53 Assessment & Plan Assessment Impression and plan Recurrent esophageal cancer for which the patient recently restarted chemotherapy GI bleed-most likely upper and related to esophageal cancer with coagulopathy and INR up to 6 last week Acute blood loss anemia-the patient was given 2 units of blood on the and another 2 units of blood 08/20 Atrial fibrillation-amiodarone decreased to 200 mg daily. Continue to hold Coumadin. I think the risk of resuming Coumadin in the future outweighs the benefit. We'll continue off Coumadin for now. Acute kidney injury-Resolved Stage 3 CKD Hyperkalemia-resolved Type 2 diabetes mellitus-continue sliding scale insulin for now, consider adding Levemir CHF with ejection fraction of 45% and pulmonary hypertension-currently stable Hypertension- COPD-without exacerbation-continue breathing treatments and supplemental oxygen as usual Coagulopathy secondary to Coumadin-improved with holding Coumadin and giving vitamin K Constipation Plan/Intensity of Service Will have nursing give Fleets enema due to constipation. Continue to hold Coumadin - likely need to be off for 4-6 weeks. Could restart lisinopril as JLELY resolved - need recheck BMP in 1 week. Will d/c to home. F/U with Dr Dietz in 1 week. Continue Onc Care by Dr Newman. See orders for details. DVT Prophylaxis: SCD'S Code Status Full Code, unverified Hospital Course Summary Disclaimer The hospital course summary below is not to be considered part of the above Progress Note. Hospital Course Summary Addendum 08/18/2016 at [address] Rose who is on-call for Dr. Lopez. He would recommend continuing off of Coumadin and only doing an EGD if the patient continues to have bleeding despite normalization of INR. We'll continue with Protonix IV for now. Will consult Dr. Rose if the patient has continued bleeding issues. 08/19/16 Continue to monitor for evidence acute bleeding. Continue Protonix twice a day for GI protection. No bowel movements since admission, Added Miralax today. Wean off oxygen as able. Sats have been 100% on 1 liter. Continue to monitor blood sugars on current regimen of Levemir 10 units at at bedtime and sliding scale Novolin Patient is tolerating liquid diet well. Will advance to regular diet. Continue to monitor serial hemoglobin, currently 8.0 Will discuss further plan of care with Dr Carrillo 08/19/2016-I reviewed this chart, the patient history, and the COUNTERINTELLIGENCE ANALYST's/PA's documented findings as above. We discussed and formulated the assessment and plan as above with the additions below.-Dr. Carrillo The patient is doing well today. She states she walked in the halls and denied any lightheadedness or chest pain. She denies any shortness of breath. She states she feels constipated. She had a small black stool yesterday. She is tolerating clear liquids and we are advancing to a regular diet this evening. Hemoglobin is 8.0 today. Hemoglobin yesterday was 6.2 prior to transfusion of 2 units of blood. With her active esophageal cancer on chemotherapy, we may need to transfuse again if hemoglobin drops any further. BUN continues to decrease and is 35 today down from 53 yesterday and 66 the night before. Creatinine also is improving and is 1.0 today. On exam the patient is alert and mildly pale. Chest is clear to auscultation. Cardiovascular reveals a regular rate and rhythm. Abdomen is soft and nontender. Extremities are free of edema. At this time, plan is to monitor hemoglobin. Transfuse if needed. Plan for EGD only if she appears to continue to have problems with bleeding off of Coumadin. Continue to hold Coumadin at this time. We'll discuss further with her oncologist tomorrow. 08/20 Because of the need for repeat transfusion today I did switch the patient back to clear liquids. If hemoglobin is stable tomorrow can likely advance diet. Chemotherapy is currently on hold while the patient is in the hospital with GI bleed. The patient's oncologist is Dr. Newman. CBC and basic metabolic profile tomorrow. 08/21 Doing well this morning. Feels ready for regular food. No ab pain or pain with swallowing. Passing flatus, but has not had bowel movement. Not feeling crampy discomfort to abdomen. No nausea. Breathing well without SOA, cough or congestion. No chest pressure or pain. Up with nursing-strength feels stable. Urinating well. No f/c. Hemoglobin 9.9 this am. BUN decreased to 21 with creatinine 1.1. Advance to 2000 KCAL ADA regular diet. Will start Carafate with meals and HS to help protect esophagus. PT/OT eval/treat due to gen debility from this acute episode of illness. Restart Norvasc - will keep Lisinopril on hold due to JELLY at presentation. Recheck hemoglobin this afternoon. Continue to hold Coumadin. Recheck CMP and CBC in am. Possible home tomorrow if continues to do well. 08/22 Doing well overall, except not passing stool. Not feeling nauseated or having ab pain. Eating well-no pain with eating or feeling food catch as she swallows. Breathing well without SOA, cough or congestion. Strength improving-ambulating better. Will have nursing give Fleets enema due to constipation. Continue to hold Coumadin - likely need to be off for 4-6 weeks. Could restart lisinopril as JELLY resolved - need recheck BMP in 1 week. Will d/c to home. F/U with Dr Dietz in 1 week. Continue Onc Care by Dr Newman. See orders for details. HARINI SOUZA MD Aug 22, 2016 11:31
[2016-08-22] MEDS ORDERED: FERR-70 PO (12:10)
[2016-08-22] MEDS ORDERED: BUME1TAB17 PO (12:10)
[2016-08-22] MEDS ORDERED: AMIO200T7 PO (12:10)
[2016-08-22] MEDS ORDERED: SUCR1TAB20 PO (12:10)
[2016-08-22] MEDS ORDERED: FLEET PHOSPHO-SODA 133 ML ENEMA RECTALLY ONE (12:45)
--- NOTE | 2016-08-22 15:55 | NUR ---
DCd PORT-A-CATH 5ML OF HEPARIN FLUSH WAS ADMINISTERED. 10ML NS FLUSH FOLLOWED. FLUSHED W/O DIFFICULTY. PORT-A-CATH WAS DCd WITH GUIDANCE OF WATCH AND CLOCK MAKER AND REPAIRER @ [id number]
--- NOTE | 2016-08-22 16:20 | NUR ---
DISCHARGE NURSING NOTE PT WAS DISCHARGED FROM THE HOSPITAL AT THIS TIME, VIA WHEELCHAIR, ACCOMPANIED BY HER SISTER, MAGIGE. PT ALERT AND ORIENTED X3, VITAL SIGNS STABLE, ON 1L OF O2 PER HOME ORDERS. THIS RN WENT OVER DISCHARGE PAPERWORK WITH THE PT AND THE PT'S SISTER, INCLUDING DISCHARGE DIET, ACTIVITY, MEDICATIONS, PRESCRIPTIONS AND FOLLOW-UP APPOINTMENTS. PT AND FAMILY VERBALIZED UNDERSTANDING. PT'S PORT A CATH WAS DE-ACCESSED BY [facility] DEXIGRAPH OPERATOR AND INSTRUCTOR. PT'S BELONGINGS SENT WITH AT TIME OF DISCHARGE, NO CONCERNS NOTED AT THIS TIME.
--- NOTE | 2016-08-22 16:25 | NUR ---
CM THIS WORKER MET WITH PT AT THIS TIME. SISTER ALSO PRESENT TO OFFICE CASHIER PT FOR TRANSPORT HOME. PT DENIED NEEDS AT THIS TIME. PT RETURNING TO HOME WITH SISTER. THIS WORKER PROVIDED HOME HEALTH ORDERS TO HOME HEALTH ([facility]) AND REPORTED THAT DISMISSAL DATE. THIS WORKER ENCOURAGED PT TO CONTACT THIS WORKER WITH ANY NEEDS.
--- NOTE | 2016-08-23 14:31 | DSF ---
ADMISSION DIAGNOSIS Upper GI bleed. DISCHARGE DIAGNOSIS Upper GI bleed - resolved. ASSOCIATED CONDITIONS/COMPLICATIONS Acute blood loss anemia. Esophageal carcinoma. Chronic atrial fibrillation. Anticoagulation with Coumadin - stopped during hospitalization secondary to GI bleed. Acute kidney injury - resolved. Stage III chronic kidney disease. Hyperkalemia (present on admission) - resolved. Type 2 diabetes mellitus. Chronic diastolic heart failure. Pulmonary hypertension. COPD. Constipation. Hypertension. PROCEDURES Transfusion 2 units packed red cells 08/18/2016 and 08/20/2016. CONSULTS PT/OT. CLINICAL RESUME Angela Ball is a 81-year-old female who presents to [facility] Emergency Room secondary to dark stools. She chronically uses Coumadin for atrial fibrillation. She also has history of esophageal carcinoma. She did undergo EGD July 23, [address] 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 She has subsequently undergone chemotherapy by Dr. Newman. In the outpatient setting her lab was monitored and evidence of elevation of INR was found. It sounds as if it did get as high as 6 earlier this week. Her Coumadin was placed on hold. The patient did notice onset of black stools which began yesterday. She did call her primary care physician who recommended presentation to emergency department for evaluation. There she did have brown stool in the rectal vault which was Hemoccult-positive. Lab did show decrease of hemoglobin down to 7.3 and INR was elevated at 2.91. In light of her coagulopathy and acute GI blood loss, the hospitalist service was contacted and patient was subsequently placed in inpatient admission status at [facility] for further evaluation and treatment. For complete details of the H&P refer to that document. LABORATORY White blood count is 8.8 with hemoglobin 7.3, hematocrit 21.9, MCV 96.9 and platelets 254,000. Serum sodium is 135, potassium 6.1, chloride 105, CO2 24, BUN 66 with creatinine 1.6, GFR 31 and blood glucose 122. Transaminases are unremarkable. Phosphorus is 2.8 with magnesium 2.4. INR is 2.91. HOSPITAL COURSE The patient was placed in inpatient admission status at [facility] under the hospitalist service. Coumadin was held. Serial hemoglobins were obtained. She was started on Protonix for GI protection. Clear liquid diet was initiated. IV fluids were initiated for hydration in light of her acute kidney injury. In light of her elevated potassium SANDRA inhibitor and potassium supplementation were held. She was initially started on bicarbonate drip. She was given insulin and glucose in the emergency room as well as calcium gluconate to help with her hyperkalemia. Cardiac telemetry was initiated. During the hospitalization we did discuss the case with Dr. Rose (surgery burial needs salesperson for Dr. Lopez). He did not feel repeat EGD was warranted unless more dramatic blood loss would be obtained. With monitoring of hemoglobin she did receive 2 units of packed red cells on the . Hemoglobin did increase to 9.0 on the evening of the but trended down to a jennifer of 6.9 on the at which time she was given another 2 units of packed red cells. Hemoglobin improved and stabilized thereafter, being 9.4 by time of discharge. With holding Coumadin her INR did trend to normal. Her acute kidney injury resolved promptly with hydration, decreasing from 1.6 at time of presentation down to 1.2 by the next hospital day. Creatinine was 1.1 by time of discharge and sodium potassium was normal as well. Diet was advanced. However, on the with hemoglobin trending downward and need for transfusion, diet was changed to clear liquids. Ultimately, Carafate was started during the hospitalization to try to provide enhanced esophageal protection. Bowel function was slow but through use of Fleet's enema at time of discharge she did start to produce good stool. Respiratory status and blood pressure did well during the hospitalization. By time of discharge she was eating and drinking well. She was ambulating at baseline. PT and OT had been consulted and felt the patient was at her prior level of function. Hemoglobin was stable at 9.4. Creatinine was 1.1. In light of her clinical improvement she was able to be discharged to home. Narrative disclaimer: Above narrative is a brief summary of the patient's hospitalization. For complete details of hospital course, refer to the medical record. DISCHARGE CONDITION Stable/good. DIET 2000 kilocalorie ADA diet. ACTIVITIES As tolerated. MEDICATIONS Stop Coumadin - should remain off for four to six weeks. Amiodarone 200 mg daily - dose decreased from b.i.d. Bumex 1 mg daily. Ferrous sulfate 325 mg with breakfast. Vitamin C 500 mg with breakfast. Carafate 1 g p.o. a.c. and h.s. x 2 weeks. Tylenol 650 mg p.r.n. pain. Norvasc 2.5 mg daily. Dulcolax 10 mg HI daily p.r.n. constipation. Calcium 600/200 q.h.s. Coreg 12.5 mg b.i.d. Benadryl 25 mg q.6h. p.r.n. itching. Colace 110 mg t.i.d. Mucinex 600 mg b.i.d. p.r.n. [place] 5/325 one to two q.4-6h. p.r.n. Levemir 20 units q.h.s. NovoLog 4 units subcutaneously with breakfast, 6 units with lunch and 5 units with evening meal. DuoNeb breathing treatments q.i.d. p.r.n. Lisinopril 2.5 mg q.h.s. Lorazepam 0.5 mg t.i.d. p.r.n. anxiety. MiraLAX 17 g daily p.r.n. constipation. Stop potassium. FOLLOWUP The patient will follow with Dr. Dietz in one week - recommend recheck BMP at that time secondary to acute kidney injury and CBC secondary to anemia. The patient will follow with Dr. Newman for oncological care. INSTRUCTION TO PATIENT The patient was instructed on her diagnosis and treatments provided. She received informed consent prior to blood product transfusion. She will notify physician if she develops temperature greater than 104, develops bloody emesis, or starts passing blood in stool. She will be adherent with diabetic diet and activities. She will monitor blood sugars. Advised potential need for adjusting insulin. Should other problems or need occur she be in contact with Dr. Dietz. If symptoms become quite dire she can present to emergency room for acute evaluation. She voiced understanding of the above. Time spent with discharge greater than 35 minutes. MTDD
== END 2016-08-22 16:20 | disposition home health service (06) | DRG 378 ==
LOC: ED 16:10 → EDHOLD 19:46 → SRG 21:05
PROVIDERS: ADMIT Emergency Medicine; ATTEND Internal Medicine
PROC: 30233N1 Transfusion of Nonautologous Red Blood Cells into Peripheral Vein, Percutaneous Approach (ICD-10-PCS; principal; 2016-08-18)
DX: K92.2 Gastrointestinal hemorrhage, unspecified (principal); D62 Acute posthemorrhagic anemia; N17.9 Acute kidney failure, unspecified; I13.0 Hypertensive heart and chronic kidney disease with heart failure and stage 1 through stage 4 chronic kidney disease, or unspecified chronic kidney disease; I50.32 Chronic diastolic (congestive) heart failure; C15.9 Malignant neoplasm of esophagus, unspecified; E87.5 Hyperkalemia; E11.22 Type 2 diabetes mellitus with diabetic chronic kidney disease; N18.3 Chronic kidney disease, stage 3 (moderate); I48.2 Chronic atrial fibrillation; J44.9 Chronic obstructive pulmonary disease, unspecified; E11.610 Type 2 diabetes mellitus with diabetic neuropathic arthropathy; I27.2 Other secondary pulmonary hypertension; K59.00 Constipation, unspecified; Z79.4 Long term (current) use of insulin; Z79.01 Long term (current) use of anticoagulants; Z79.899 Other long term (current) drug therapy
CPT/HCPCS: 36415; 80048; 80053; 80069; 82948; 83735; 85014; 85018; 85025; 85610; 86850; 86900; 86901; 86920; 86922; 93005; 94640; 96361; 96374

== ENCOUNTER 2017-02-27 09:11 | Inpatient (IN) ==
[2017-02-27 11:10] VITALS: BMI 30.1
[2017-02-27] MEDS: CEFEPIME 1 GM in NS 100 ML IV SCH ×3 (11:17→20:37)
--- NOTE | 2017-02-27 12:25 | History & Physical Report ---
<Anay Umaña V - Last Filed: 02/27/17 12:58> History of Present Illness Date: 02/27/17 Chief complaint: bacteremia HPI: Patient is a 81 year old female who is well known to the hospitalist services from previous admissions. She is currently been under the care of Dr. Newman for chemotherapy treatment of esophageal cancer. She presented to [facility] on 02/11 for evaluation of lower extremity wounds. At that time she is instructed to go to the emergency room for acute evaluation, however, declined. She was discharged on clindamycin and followed up at the wound care center on 02/13 and 02/20. She was found to have bilateral lower extremity diabetic foot ulcers and has had dressing changes every 3 days. Wound culture taken on 02/13-is positive for MRSA, sensitive to vancomycin, Doxy, gentamicin and linezolid. On 02/21 ,she was changed to Augmentin for further antimicrobial coverage. Yesterday she presented to Dr. Newman's office for routine labs and chemotherapy. At that time Blood cultures were obtained, which did grow preliminary gram-negative bacillus. CBC was done yesterday revealed leukocytosis with a white count of 13, hemoglobin 11.2, hematocrit 34.3, 10% bands. Given these findings, Dr. Newman's office. Did contact patient today and have her directly admitted under the hospitalist services to Dr. Casiano for further inpatient evaluation and treatment. Angela is seen today on arrival to [facility] and is accompanied by her two sisters. She is alert, oriented and pleasant. She states that she has missed the last 3 rounds of chemotherapy related to the lower extremity infection. Denies having any fever/chills. No nausea or vomiting. Did review instructions and she does wish to be a do not resuscitate. Review of Systems All systems PM: 10-point ROS was reviewed, no additional remarkable complaints except - Musculoskeletal Musculoskeletal: Present: as per HPI - Integumentary/Breasts Integumentary: Present: as per HPI Integumentary Comments: Right 1st medial foot ulceration, left lateral ankle malleolar ulceration with 3 separate ulcers [facility] Patient Stated Medical History COPD A-fibulation Type II diabetes Esophageal cancer-current chemotherapy treatment Hypertension Chronic kidney disease History of anemia with GI bleed- 08/2016 (taken off and check coagulation at this time) GERD. History of osteomyelitis Hyperlipidemia. Obstructive sleep apnea History of cellulitis and MRSA Surgical History: Bilateral cataract extraction-2006. Appendectomy. Hysterectomy-2003. Cystoscopy 2009. Cardiac catheter-2008. EGD and diagnosis of esophageal cancer-2007. Port-A-Cath placement-2007. Bilateral toes amputations Family History: Father-heart disease with PA Mother-heart disease, asthma Brother-Asthma Sister-Parkinson's, TIA - Social History Smoking status: Never smoker Substance use type: does not use Alcohol intake frequency: does not drink Housing: house Household members: family (sister) Social history: PCP Dr Rachel Dietz Oncologist Dr. Newman Medications Home Medications Medication Instructions Recorded Confirmed Type Ascorbic Acid 500 mg PO DAILY #0 08/03/15 02/27/17 History diphenhydrAMINE HCl [Benadryl] 25 mg PO Q6H PRN #0 08/03/15 02/27/17 History Lisinopril 2.5 mg PO HS #0 07/20/16 02/27/17 History Amlodipine Besylate 2.5 mg PO DAILY #0 07/25/16 02/27/17 History Calcium Carbonate/Vitamin D3 1 tab PO BID #0 07/25/16 02/27/17 History [Calcium 600-Vit D3 200 Tablet] Carvedilol 12.5 mg PO BID #0 07/25/16 02/27/17 History Docusate Sodium [Colace] 100 mg PO TID #0 07/25/16 02/27/17 History Insulin Aspart [NovoLOG] 4 unit SQ WB #0 07/25/16 02/27/17 History Insulin Aspart [NovoLOG] 6 unit SQ WL #0 07/25/16 02/27/17 History Insulin Detemir [Levemir] 20 unit SQ HS #0 07/25/16 02/27/17 History Ipratropium/Albuterol Sulfate 1 vial AEROSOL QID PRN #0 07/25/16 02/27/17 History [Iprat-Albut 0.5-3(2.5) mg/3 ml] LORazepam [Lorazepam] 0.5 - 1 mg PO TID PRN #0 07/25/16 02/27/17 History Polyethylene Glycol 3350 [Miralax] 17 g PO DAILY PRN #0 07/25/16 02/27/17 History guaiFENesin [Mucinex] 600 mg PO BID PRN #0 07/25/16 02/27/17 History Acetaminophen [Acetaminophen 8 650 mg PO DAILY PRN #0 08/17/16 02/27/17 History Hour] Bisacodyl 10 mg RECTALLY DAILY PRN #0 08/17/16 02/27/17 History Insulin Aspart [NovoLOG] 4 unit SQ WS #0 08/17/16 02/27/17 History Albuterol Neb (0.083%) [Proventil 2.5 mg AEROSOL Q6HR 02/27/17 02/27/17 History Neb (0.083%)] Bumetanide 0.5 mg PO BID 02/27/17 02/27/17 History Guaifenesin/Dextromethorphan 237 ml PO Q4HR 02/27/17 02/27/17 History [Robitussin Cough-Chest Dm Liq] Hydrocodone/Acetaminophen (Eden 1 - 2 tab PO Q4HPRN 02/27/17 02/27/17 History 5-325 Tablet) Lisinopril [Prinivil] 2.5 mg PO DAILY 02/27/17 02/27/17 History Mirtazapine [Remeron] 15 mg PO HS 02/27/17 02/27/17 History Mupirocin Cream [Bactroban 2% 1 applicatio TOP TID 02/27/17 02/27/17 History Cream] Nystatin Cream [Mycostatin] 15 gm TP TID PRN 02/27/17 02/27/17 History Dugger-3 Fatty Acids [Fish Oil 1,000 mg PO TID 02/27/17 02/27/17 History Concentrate] Potassium Chloride [K-Dur] 1 tab PO DAILY 02/27/17 02/27/17 History Vitamin E 1,000 unit PO DAILY 02/27/17 02/27/17 History Warfarin [Coumadin] 3 mg PO NOON 02/27/17 02/27/17 History Allergies Allergy/AdvReac Type Severity Reaction Status Date / Time sulfamethoxazole Allergy Unknown hives Verified 02/11/17 18:50 trimethoprim Allergy Unknown HIVES Verified 02/11/17 18:50 niacin AdvReac Intermediate HIVES Verified 02/27/17 10:59 Exam Vital Signs: Temperature 95.5 F L 02/27/17 11:10 Pulse Rate 65 02/27/17 11:10 Respiratory Rate 18 02/27/17 11:10 Blood Pressure 142/66 H 02/27/17 11:10 Pulse Oximetry 98 02/27/17 11:10 Height/Weight/BMI: Height 1.6 m Weight 77.2 kg Body Mass Index 30.1 - Constitutional Present: no acute distress, well nourished, well developed - Routine HEENT Exam Eye: Present: EOMI ENT: Present: mucous membranes moist, dentition normal - Routine Respiratory Exam Present: CTA bilaterally. Absent: wheezes - Routine Cardiovascular Exam Present: RRR, S1, S2. Absent: murmur - Routine Abdominal Exam Present: soft, normoactive bowel sounds, non distended. Absent: tenderness - Routine Extremities Exam Present: edema, normal capillary refill - Routine Skin Exam Present: intact, dry, warm Comments: Right- Medial foot ulceration Left- Lateral malleolus ankle- 3 separate areas of ulceration - Routine Neurological Exam Present: alert, oriented X3, CN II-XII intact - Routine Psychiatric Exam Present: normal affect, cooperative Results - Labs CBC & Chem 7: 02/27/17 11:41 02/27/17 11:41 Microbiology Results: Microbiology 02/27/17 11:41 Peripheral/Iv Start Blood Culture - Preliminary Culture Initiated - Results Pending 02/27/17 11:40 Peripheral/Iv Start Blood Culture - Preliminary Culture Initiated - Results Pending Assessment and Plan (1) MRSA (methicillin resistant staph aureus) culture positive Current visit: No Status: Acute (2) Sepsis Current visit: Yes Status: Acute DVT Prophylaxis: SCD's Resuscitation Status: Do Not Resuscitate Assessment and Plan: Impression Sepsis-1. Leukocytosis, 2. Known ulcer wound,-MRSA positive, 3. Bacteremia MRSA positive wound Culture Bacteremia- outpt blood culture from 02/26- Gram negative bacillus Esophageal cancer-current treatment under the care of Dr. Newman COPD-chronic oxygen use at 2 liters Chronic atrial fibrillation Hypertension GERD Hyperlipidemia Obstructive sleep apnea Chronic kidney disease History of anemia and GI bleed. Anticoagulation was stopped 08/2016 Plan Admit patient to inpatient status under care of Dr. Casiano for bacteremia, sepsis Upon admission the following laboratory studies are obtained CBC, CMP, venous lactate, pro calcitonin, blood culture 2 with one drawn out of Port-A-Cath. Obtain UA on admission. Patient empirically started on IV Levaquin and IV cefepime for treatment of sepsis and bacteremia. MRSA is to tip to vancomycin. Repeat blood cultures are pending at time of admission. Recheck venous lactate later this afternoon as per sepsis protocol Normal saline at 100 ML per hour for gentle hydration NT home oxygen at baseline 2 liters by nasal cannula. Will monitor Accu-Cheks routinely Awaiting nursing staff to reconcile home medications, these need to be reviewed and ordered. Patient did have an active GI bleed in August 2016, She has been off Anticoagulation since that time. Noted to be on Carafate for GI protection SCDs to bilateral lower extremity for DVT prophylaxis Check CBC and BMP tomorrow morning to follow blood counts, renal function and electrolytes In patient does request to be a do not resuscitate and this order is written Will discuss further orders and plan of care with attending, Dr. Casiano Time of discharge medical care will return to primary care provider, Dr. Dietz [facility] Hospital Course Summary Disclaimer: The visit summary below is not to be considered part of the above Progress Note. <Vishnu Casiano - Last Filed: 02/27/17 17:04> History of Present Illness Date: 02/27/17 [facility] Patient Stated Medical History Hearing Loss Yes: hearing aids Cardiac Arrhythmia Yes: afib Hypertension Yes Chronic Obstructive Pulmonary Yes Disease (COPD) Sleep Apnea Yes Diabetes Mellitus Type 2 Yes Hx Urinary Tract Infection Yes Cellulitis Yes: foot MRSA Yes Sepsis Yes Clinic Medical History (Last Updated 02/11/17 @ 18:53 by CAT [place]) Diabetes (Chronic Medical) Heart disease (Chronic Medical) Neuropathy (Chronic Medical) Exam Vital Signs: Temperature 97.4 F 02/27/17 15:26 Pulse Rate 78 02/27/17 15:51 Respiratory Rate 18 02/27/17 15:51 Blood Pressure 140/59 H 02/27/17 15:26 Pulse Oximetry 95 02/27/17 15:51 Height/Weight/BMI: Height 1.6 m Weight 77.2 kg Body Mass Index 30.1 Results - Labs CBC & Chem 7: 02/27/17 11:41 02/27/17 11:41 Microbiology Results: Microbiology 02/27/17 11:41 Peripheral/Iv Start Blood Culture - Preliminary Culture Initiated - Results Pending 02/27/17 11:40 Peripheral/Iv Start Blood Culture - Preliminary Culture Initiated - Results Pending Assessment and Plan (1) MRSA (methicillin resistant staph aureus) culture positive Current visit: No Status: Acute (2) Sepsis Current visit: Yes Status: Acute Assessment and Plan: Impression Sepsis-1. Leukocytosis, 2. Known ulcer wound,-MRSA positive, 3. Bacteremia MRSA positive wound Culture Bacteremia- outpt blood culture from 02/26- Gram negative bacillus Esophageal cancer-current treatment under the care of Dr. 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 Anticoagulation was stopped 08/2016 Have independently interviewed and examined pt. Chart reviewed. Case discussed with my [employer]. Care plan developed with my supervision; agree with above. Presents for admission due to positive BC in outpatient setting. Does report chills. Recently found to have heal wounds-working with wound center towards this end. Breathing stable-not having increased cough or congestion. No pain with breathing. Appetite and swallow function stable. No chest pressure or pain. No urinary symptoms. Not restarted Coumadin since last admission in October of this year for GI bleeding. Lungs: decreased, no crackles or wheeze. Breaths comfortably on RA. CV: regular AB: soft nt/nd +BS MSE: awake alert appropriate Plan: Inpatient admission for treatment of bacteremia not responding to outpatient treatment modalities. ? source- wound, ? port. Levaquin, Cefepime and Vanco. Recheck BC. Check urine and CXR. Continue home medications. Monitor sugars and lab. SCD for DVT prevention. Wound team consult. Hospital Course Summary Disclaimer: The visit summary below is not to be considered part of the above Progress Note.
[2017-02-27] MEDS: LEVOFLOXACIN PB 750 MG/150 ML BAG IV SCH (13:23)
[2017-02-27] MEDS: NOZIN NASAL SWAB NAS SCH ×2 (14:06→21:25)
[2017-02-27] MEDS ORDERED: POLYETHYL GLYCOL 3350 17gm PACKET PO PRN (15:21)
[2017-02-27] MEDS ORDERED: BISACODYL 10 MG SUPPOSITORY RECTALLY PRN (15:21)
[2017-02-27] MEDS ORDERED: ALBUTEROL/IPRATROPIUM 2.5mg-0.5mg/3ml NEB AEROSOL PRN (15:21)
[2017-02-27] MEDS ORDERED: GUAIFENESIN LA 600 MG TABLET PO PRN (15:21)
[2017-02-27] MEDS ORDERED: DiphenhydrAMINE 25 MG CAPSULE PO PRN (15:21)
[2017-02-27] MEDS ORDERED: GUAIFENESIN/DM 5ml ORAL LIQUID PO PRN (16:00)
[2017-02-27] MEDS: SUCRALFATE 1 GM TABLET PO SCH ×2 (17:08→20:36)
[2017-02-27] MEDS: CARVEDILOL 12.5 MG TABLET PO SCH (17:08)
[2017-02-27] MEDS: INSULIN ASPART 100unit/ml INJECTION SQ SCH (17:09)
[2017-02-27] MEDS: BUMETANIDE 1 MG TABLET PO SCH (20:35)
[2017-02-27] MEDS: INSULIN DETEMIR 100unit/ml INJECTION SQ SCH (20:36)
[2017-02-27] MEDS: LISINOPRIL 2.5 MG TABLET PO SCH (20:36)
[2017-02-27] MEDS: MIRTAZAPINE 15 MG TABLET PO SCH (20:36)
[2017-02-27] MEDS: CALCIUM 500 + VIT D 200 TABLET PO SCH (20:36)
[2017-02-27] MEDS: DOCUSATE SODIUM 100 MG CAPSULE PO SCH (20:36)
[2017-02-28] MEDS: ACETAMINOPHEN 500 MG TABLET PO PRN (00:18)
[2017-02-28] MEDS: CEFEPIME 1 GM in NS 100 ML IV SCH ×4 (02:32→22:43)
[2017-02-28] MEDS: NOZIN NASAL SWAB NAS SCH ×3 (06:04→21:42)
[2017-02-28] MEDS: SUCRALFATE 1 GM TABLET PO SCH ×4 (06:06→20:40)
--- NOTE | 2017-02-28 08:49 | XRay Report ---
Indication: COPD PROCEDURE: XR chest 1V: Encounter: Initial Comparison: January 11, 2016 Findings: Support devices are stable. There is airspace disease in the left lower lobe with an elevated left hemidiaphragm. Right lung is clear. No pneumothorax or definite pleural effusion. Heart size and mediastinal contours are stable. Impression: Left lower lobe airspace consolidation could be due to atelectasis, pneumonia or aspiration. .
[2017-02-28] MEDS: DOCUSATE SODIUM 100 MG CAPSULE PO SCH ×3 (09:13→20:40)
[2017-02-28] MEDS: VITAMIN E 1,000 UNIT CAPSULE PO SCH (09:13)
[2017-02-28] MEDS: CALCIUM 500 + VIT D 200 TABLET PO SCH ×2 (09:13→20:40)
[2017-02-28] MEDS: BUMETANIDE 1 MG TABLET PO SCH ×2 (09:14→20:40)
[2017-02-28] MEDS: AMLODIPINE 2.5 MG TABLET PO SCH (09:16)
[2017-02-28] MEDS: CARVEDILOL 12.5 MG TABLET PO SCH ×2 (09:16→18:40)
[2017-02-28] MEDS: LISINOPRIL 2.5 MG TABLET PO SCH ×2 (09:16→20:40)
[2017-02-28] MEDS: AMIODARONE 200 MG TABLET PO SCH (09:17)
[2017-02-28] MEDS: ASCORBIC ACID 500 MG TABLET PO SCH (09:18)
[2017-02-28] MEDS: INSULIN ASPART 100unit/ml INJECTION SQ SCH ×3 (09:18→19:21)
--- NOTE | 2017-02-28 11:29 | Progress Note ---
<Anay Umaña V - Last Filed: 02/28/17 11:25> Subjective: Angela is seen this morning up in the chair during dressing changes to bilateral lower extremity wounds. Overall, she states that she is feeling pretty good without any complaints of discomfort, shortness of breath or GI concerns. Unfortunately admission blood cultures from both Port-A-Cath and peripheral site are positive with gram-negative dalton. And he is on her baseline oxygen of 2 liters have difficulty. Vital signs been stable and she remains afebrile. Objective Vital signs: Temperature 96.8 F 02/28/17 07:20 Pulse Rate 62 02/28/17 07:20 Respiratory Rate 18 02/28/17 07:20 Blood Pressure 144/64 H 02/28/17 07:20 Pulse Oximetry 99 02/28/17 07:20 Rhythm: Sinus Tachycardia Height/Weight/BMI: Height 1.6 m Weight 77 kg Body Mass Index 30.1 - Constitutional Present: no acute distress, well nourished, well developed - Routine HEENT Exam Eye: Present: EOMI ENT: Present: mucous membranes moist, dentition normal - Routine Respiratory Exam Present: CTA bilaterally. Absent: wheezes - Routine Cardiovascular Exam Present: RRR, S1, S2. Absent: murmur - Routine Abdominal Exam Present: soft, normoactive bowel sounds, non distended. Absent: tenderness - Routine Extremities Exam Comments: The lateral lower extremity foot ulcers, dressing changed by wound nurse today. - Routine Skin Exam Present: intact, dry, warm - Routine Neurological Exam Present: alert, oriented X3, CN II-XII intact - Routine Lymphatic Exam Lymphatic: Absent: adenopathy - Routine Psychiatric Exam Present: normal affect, cooperative Results - Labs CBC & Chem 7: 02/28/17 04:26 02/28/17 04:26 Microbiology Results: Microbiology 02/28/17 09:50 Decubitus, Foot Right Deep Wound Culture - Preliminary Culture Initiated - Results Pending 02/27/17 11:41 Port/Picc Gram Stain - Final 02/27/17 11:41 Port/Picc Blood Culture - Preliminary Gram Negative Dalton 02/27/17 11:40 Peripheral/Iv Start Gram Stain - Final 02/27/17 11:40 Peripheral/Iv Start Blood Culture - Preliminary Culture Initiated - Results Pending Assessment and Plan (1) MRSA (methicillin resistant staph aureus) culture positive Current visit: No Status: Acute (2) Sepsis Current visit: Yes Status: Acute Assessment and Plan: Impression Sepsis-1. Leukocytosis, 2. Known ulcer wound,-MRSA positive, 3. Bacteremia MRSA positive wound Culture Bacteremia- outpt blood culture from 02/26- Gram negative bacillus Esophageal cancer-current treatment under the care of Dr. 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 Anticoagulation was stopped 08/2016-Plan Given bacteremia 2 cultures, consult placed to Dr. Fernandez for further infectious disease recommendations. Will redraw cultures 1 out of Port-A-Cath, one peripheral draw. Consult placed to Dr. Lopez as Port-A-Cath will likely need to be removed. Outpatient foot wound culture + MRSA from 02/13/17. Wound team changing dressing every other day. Continue on triple antibiotic coverage including vancomycin, cefepime and Levaquin. Clinically Angela appears to be doing well without complaints. Vital signs remained stable and she is afebrile. NT need to follow routine labs. Some slightly up at 149, renal function improving. Creatinine today 1.4. Procalcitonin trending down. Case discussed with attending, Wound nurse, Surgical team. Hospital Course Summary Disclaimer: The visit summary below is not to be considered part of the above Progress Note. Hospital Course: 02/27/17- Admission Sepsis-1. Leukocytosis, 2. Known ulcer wound,-MRSA positive, 3. Bacteremia MRSA positive wound Culture Bacteremia- outpt blood culture from 02/26- Gram negative bacillus Esophageal cancer-current treatment under the care of Dr. Newman COPD-chronic oxygen use at 2 liters Chronic atrial fibrillation Hypertension GERD Hyperlipidemia Obstructive sleep apnea Chronic kidney disease History of anemia and GI bleed. Anticoagulation was stopped 08/2016 Plan Admit patient to inpatient status under care of Dr. Casiano for bacteremia, sepsis Upon admission the following laboratory studies are obtained CBC, CMP, venous lactate, pro calcitonin, blood culture 2 with one drawn out of Port-A-Cath. Obtain UA on admission. Patient empirically started on IV Levaquin and IV cefepime for treatment of sepsis and bacteremia. MRSA is to tip to vancomycin. Repeat blood cultures are pending at time of admission. Recheck venous lactate later this afternoon as per sepsis protocol Normal saline at 100 ML per hour for gentle hydration NT home oxygen at baseline 2 liters by nasal cannula. Will monitor Accu-Cheks routinely Awaiting nursing staff to reconcile home medications, these need to be reviewed and ordered. Patient did have an active GI bleed in August 2016, She has been off Anticoagulation since that time. Noted to be on Carafate for GI protection SCDs to bilateral lower extremity for DVT prophylaxis Check CBC and BMP tomorrow morning to follow blood counts, renal function and electrolytes In patient does request to be a do not resuscitate and this order is written Will discuss further orders and plan of care with attending, Dr. Casiano Time of discharge medical care will return to primary care provider, Dr. Dietz 02/28-Plan Given bacteremia 2 cultures, consult placed to Dr. Fernandez for further infectious disease recommendations. Will redraw cultures 1 out of Port-A-Cath, one peripheral draw. Consult placed to Dr. Lopez as Port-A-Cath will likely need to be removed. Outpatient foot wound culture + MRSA from 02/13/17. Wound team changing dressing every other day. Continue on triple antibiotic coverage including vancomycin, cefepime and Levaquin. Clinically Angela appears to be doing well without complaints. Vital signs remained stable and she is afebrile. NT need to follow routine labs. Some slightly up at 149, renal function improving. Creatinine today 1.4. Procalcitonin trending down. Case discussed with attending, Wound nurse, Surgical team. <Vishnu Casiano - Last Filed: 02/28/17 14:44> Objective Vital signs: Temperature 96.8 F 02/28/17 07:20 Pulse Rate 62 02/28/17 07:20 Respiratory Rate 18 02/28/17 07:20 Blood Pressure 144/64 H 02/28/17 07:20 Pulse Oximetry 99 02/28/17 07:20 Height/Weight/BMI: Height 1.6 m Weight 77 kg Body Mass Index 30.1 Results - Labs CBC & Chem 7: 02/28/17 04:26 02/28/17 04:26 Microbiology Results: Microbiology 02/28/17 11:29 Port/Picc Blood Culture - Preliminary Culture Initiated - Results Pending 02/28/17 11:39 Peripheral/Iv Start Blood Culture - Preliminary Culture Initiated - Results Pending 02/27/17 11:40 Peripheral/Iv Start Gram Stain - Final 02/27/17 11:40 Peripheral/Iv Start Blood Culture - Preliminary No Growth After 1 Day 02/28/17 09:50 Decubitus, Foot Right Deep Wound Culture - Preliminary Culture Initiated - Results Pending 02/27/17 11:41 Port/Picc Gram Stain - Final 02/27/17 11:41 Port/Picc Blood Culture - Preliminary Gram Negative Dalton Assessment and Plan (1) Sepsis Current visit: Yes Status: Acute (2) MRSA (methicillin resistant staph aureus) culture positive Current visit: No Status: Acute DVT Prophylaxis: SCD's Resuscitation Status: Do Not Resuscitate Assessment and Plan: Impression Sepsis-1. Leukocytosis, 2. Known ulcer wound,-MRSA positive, 3. Bacteremia MRSA positive wound Culture Bacteremia- outpt blood culture from 02/26- Gram negative bacillus. Blood cultures from this admission positive. Esophageal cancer-current treatment under the care of Dr. 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 Anticoagulation was stopped 08/2016 Have independently interviewed and examined pt. Chart reviewed. Case discussed with my [employer]. Care plan developed with my supervision; agree with above. Doing fair this morning-tired of being poked on for IV access. Feels tired in general. Notes some increased cough and sputum. Not hurting as she breaths. No chest pain. Notes minimal ab discomfort. Appetite fair. Lungs; decreased, no distress CV: irregularly irregular AB; soft nt/nd +BS MSE: awake alert appropriate; thoughts linear. Communicates well. Gen: looks slightly tired and weak, but not toxic. Plan: Consult ID for recommendations-does recommend removal of port due to persistent bacteremia. Dr Lopez consulted-plans to remove port this afternoon. Peripheral IV access obtained - want to hold on PICC or midline until bacteremia resolves. Rechecked BC today. Will repeat BC with am lab. Continue with supportive care. Hospital Course Summary Disclaimer: The visit summary below is not to be considered part of the above Progress Note.
--- NOTE | 2017-02-28 14:09 | Pharmacy Consult-Antibiotics ---
Pharmacy Consult-Vancomycin - Laboratory Information WBC 11.5 T/MM3 (4.5-11.0) H 02/28/17 04:26 BUN 27.0 MG/DL (7-17) H 02/28/17 04:26 Creatinine 1.4 MG/DL (0.7-1.2) H D 02/28/17 04:26 Procalcitonin 17.97 NG/ML H* 02/28/17 04:26 - Consult Information 81 y.o. female with bilateral lower extremity diabetic foot ulcers. Vancomycin per pharmacy protocol ordered. Goal vanco trough = 15 to 20 mcg/ml. Vancomycin 1.25 G IV x 1 dose and then 1 G IV q12H ordered. Pharmacy will monitor and adjust as needed. Thank you for the consult, Fanny Velázquez RPh
--- NOTE | 2017-02-28 14:12 | General Surgery Consult Note ---
Consult date: 02/28/17 Attending Physician: Vishnu Casiano MD Reason for consult: other (bacteremia from central line port site) [facility] Patient Stated Medical History Hearing Loss Yes: hearing aids Cardiac Arrhythmia Yes: afib Hypertension Yes Chronic Obstructive Pulmonary Yes Disease (COPD) Sleep Apnea Yes Diabetes Mellitus Type 2 Yes Hx Urinary Tract Infection Yes Cellulitis Yes: foot MRSA Yes Sepsis Yes Clinic Medical History (Last Updated 02/11/17 @ 18:53 by Zoe Rodriguez [facility]) Diabetes (Chronic Medical) Heart disease (Chronic Medical) Neuropathy (Chronic Medical) Surgical History: Bilateral cataract extraction-2006. Appendectomy. Hysterectomy-2003. Cystoscopy 2008. Cardiac catheter-2008. EGD and diagnosis of esophageal cancer-2007. Port-A-Cath placement-2007. Bilateral toes amputations Family History: Father-heart disease with [place] Mother-heart disease, asthma Brother-Asthma Sister-Parkinson's, TIA - Social History Smoking status: Never smoker Household members: family (sister) Medications Home Medications Medication Instructions Recorded Confirmed Type Ascorbic Acid 500 mg PO DAILY #0 08/03/15 02/27/17 History diphenhydrAMINE HCl [Benadryl] 25 mg PO Q6H PRN #0 08/03/15 02/27/17 History Lisinopril 2.5 mg PO HS #0 07/20/16 02/27/17 History Amlodipine Besylate 2.5 mg PO DAILY #0 07/25/16 02/27/17 History Calcium Carbonate/Vitamin D3 1 tab PO BID #0 07/25/16 02/27/17 History [Calcium 600-Vit D3 200 Tablet] Carvedilol 12.5 mg PO BID #0 07/25/16 02/27/17 History Docusate Sodium [Colace] 100 mg PO TID #0 07/25/16 02/27/17 History Insulin Aspart [NovoLOG] 4 unit SQ WB #0 07/25/16 02/27/17 History Insulin Aspart [NovoLOG] 6 unit SQ WL #0 07/25/16 02/27/17 History Insulin Detemir [Levemir] 20 unit SQ HS #0 07/25/16 02/27/17 History Ipratropium/Albuterol Sulfate 1 vial AEROSOL QID PRN #0 07/25/16 02/27/17 History [Iprat-Albut 0.5-3(2.5) mg/3 ml] LORazepam [Lorazepam] 0.5 - 1 mg PO TID PRN #0 07/25/16 02/27/17 History Polyethylene Glycol 3350 [Miralax] 17 g PO DAILY PRN #0 07/25/16 02/27/17 History guaiFENesin [Mucinex] 600 mg PO BID PRN #0 07/25/16 02/27/17 History Acetaminophen [Acetaminophen 8 650 mg PO DAILY PRN #0 08/17/16 02/27/17 History Hour] Bisacodyl 10 mg RECTALLY DAILY PRN #0 08/17/16 02/27/17 History Insulin Aspart [NovoLOG] 4 unit SQ WS #0 08/17/16 02/27/17 History Albuterol Neb (0.083%) [Proventil 2.5 mg AEROSOL Q6HR 02/27/17 02/27/17 History Neb (0.083%)] Bumetanide 0.5 mg PO BID 02/27/17 02/27/17 History Guaifenesin/Dextromethorphan 237 ml PO Q4HR 02/27/17 02/27/17 History [Robitussin Cough-Chest Dm Liq] Hydrocodone/Acetaminophen (Julian 1 - 2 tab PO Q4HPRN 02/27/17 02/27/17 History 5-325 Tablet) Lisinopril [Prinivil] 2.5 mg PO DAILY 02/27/17 02/27/17 History Mirtazapine [Remeron] 15 mg PO HS 02/27/17 02/27/17 History Mupirocin Cream [Bactroban 2% 1 applicatio TOP TID 02/27/17 02/27/17 History Cream] Nystatin Cream [Mycostatin] 15 gm TP TID PRN 02/27/17 02/27/17 History [place]-3 Fatty Acids [Fish Oil 1,000 mg PO TID 02/27/17 02/27/17 History Concentrate] Potassium Chloride [K-Dur] 1 tab PO DAILY 02/27/17 02/27/17 History Vitamin E 1,000 unit PO DAILY 02/27/17 02/27/17 History Warfarin [Coumadin] 3 mg PO NOON 02/27/17 02/27/17 History Allergies Allergy/AdvReac Type Severity Reaction Status Date / Time sulfamethoxazole Allergy Unknown hives Verified 02/11/17 18:50 trimethoprim Allergy Unknown HIVES Verified 02/11/17 18:50 niacin AdvReac Intermediate HIVES Verified 02/27/17 10:59 Review of Systems 10-point ROS: negative except for HPI and the following: - Eyes/Ears/Nose/Throat Additional comments: undergoing treatment for esophageal cancer - Musculoskeletal Additional comments: diabetic foot ulers - Neurological Neurological: Present: muscle weakness, numbness (diabeti nueropathy) - Endocrine Endocrine: Present: diabetes - Hematologic/Lymphatic Hematologic/Lymphatic: Present: use of blood thinners - Vital Signs Last Vital Signs Temp 96.8 F 02/28/17 07:20 Pulse 62 02/28/17 07:20 Resp 18 02/28/17 07:20 BP 144/64 H 02/28/17 07:20 Pulse Ox 99 02/28/17 07:20 - Laboratory Result Diagrams: 02/28/17 04:26 02/28/17 04:26 - Microbiogy Microbiology 02/28/17 11:29 Port/Picc Blood Culture - Preliminary Culture Initiated - Results Pending 02/28/17 11:39 Peripheral/Iv Start Blood Culture - Preliminary Culture Initiated - Results Pending 02/27/17 11:40 Peripheral/Iv Start Gram Stain - Final 02/27/17 11:40 Peripheral/Iv Start Blood Culture - Preliminary No Growth After 1 Day 02/28/17 09:50 Decubitus, Foot Right Deep Wound Culture - Preliminary Culture Initiated - Results Pending 02/27/17 11:41 Port/Picc Gram Stain - Final 02/27/17 11:41 Port/Picc Blood Culture - Preliminary Gram Negative [facility] Results - Results Labs: 02/28/17 04:26 02/28/17 04:26 Microbiology: Microbiology 02/28/17 11:29 Port/Picc Blood Culture - Preliminary Culture Initiated - Results Pending 02/28/17 11:39 Peripheral/Iv Start Blood Culture - Preliminary Culture Initiated - Results Pending 02/27/17 11:40 Peripheral/Iv Start Gram Stain - Final 02/27/17 11:40 Peripheral/Iv Start Blood Culture - Preliminary No Growth After 1 Day 02/28/17 09:50 Decubitus, Foot Right Deep Wound Culture - Preliminary Culture Initiated - Results Pending 02/27/17 11:41 Port/Picc Gram Stain - Final 02/27/17 11:41 Port/Picc Blood Culture - Preliminary Gram Negative [place] Hospital Course Summary Disclaimer: The visit summary below is not to be considered part of the above Progress Note. Hospital Course: 02/27/17- Admission Sepsis-1. Leukocytosis, 2. Known ulcer wound,-MRSA positive, 3. Bacteremia MRSA positive wound Culture Bacteremia- outpt blood culture from 02/26- Gram negative bacillus Esophageal cancer-current treatment under the care of Dr. Newman COPD-chronic oxygen use at 2 liters Chronic atrial fibrillation Hypertension GERD Hyperlipidemia Obstructive sleep apnea Chronic kidney disease History of anemia and GI bleed. Anticoagulation was stopped 08/2016 Plan Admit patient to inpatient status under care of Dr. Casiano for bacteremia, sepsis Upon admission the following laboratory studies are obtained CBC, CMP, venous lactate, pro calcitonin, blood culture 2 with one drawn out of Port-A-Cath. Obtain UA on admission. Patient empirically started on IV Levaquin and IV cefepime for treatment of sepsis and bacteremia. MRSA is to tip to vancomycin. Repeat blood cultures are pending at time of admission. Recheck venous lactate later this afternoon as per sepsis protocol Normal saline at 100 ML per hour for gentle hydration NT home oxygen at baseline 2 liters by nasal cannula. Will monitor Accu-Cheks routinely Awaiting nursing staff to reconcile home medications, these need to be reviewed and ordered. Patient did have an active GI bleed in August 2016, She has been off Anticoagulation since that time. Noted to be on Carafate for GI protection SCDs to bilateral lower extremity for DVT prophylaxis Check CBC and BMP tomorrow morning to follow blood counts, renal function and electrolytes In patient does request to be a do not resuscitate and this order is written Will discuss further orders and plan of care with attending, Dr. Casiano Time of discharge medical care will return to primary care provider, Dr. Dietz 02/28-Plan Given bacteremia 2 cultures, consult placed to Dr. Fernandez for further infectious disease recommendations. Will redraw cultures 1 out of Port-A-Cath, one peripheral draw. Consult placed to Dr. Lopez as Port-A-Cath will likely need to be removed. Outpatient foot wound culture + MRSA from 02/13/17. Wound team changing dressing every other day. Continue on triple antibiotic coverage including vancomycin, cefepime and Levaquin. Clinically Angela appears to be doing well without complaints. Vital signs remained stable and she is afebrile. NT need to follow routine labs. Some slightly up at 149, renal function improving. Creatinine today 1.4. Procalcitonin trending down. Case discussed with attending, Wound nurse, Surgical team.
[2017-02-28] MEDS: SALINE FLUSH 10ml SYRINGE IV PRN ×2 (14:29→22:41)
[2017-02-28] MEDS: LEVOFLOXACIN PB 750 MG/150 ML BAG IV SCH (14:33)
--- NOTE | 2017-02-28 14:36 | Wound Care Progress Note ---
Wound Management - Patient Status Premedicated Prior to Dressing Change: No - Wound Left Ankle Wound Type: Diabetic Foot Ulcer Wound Present on Admission?: Yes Wound Staging: Stage III Length: 4 Width: 2.5 Depth: 0.2 Wound Bed Appearance: Slough Maria Elena Wound Appearance: Shiny, Taut Tunneling: No Undermining: No Drainage Description: Sanguineous Drainage Amount: None Drainage Odor: No Odor Dressing Status: Changed Primary Dressing: Alginate Secondary Dressing: Foam Dressing Dressing Change Date: 02/28/17 Dressing Change Time: 09:30 Dressing Change Patient Tolerance: Tolerated Well Microbiology: Microbiology 02/28/17 11:29 Port/Picc Blood Culture - Preliminary Culture Initiated - Results Pending 02/28/17 11:39 Peripheral/Iv Start Blood Culture - Preliminary Culture Initiated - Results Pending 02/27/17 11:40 Peripheral/Iv Start Gram Stain - Final 02/27/17 11:40 Peripheral/Iv Start Blood Culture - Preliminary No Growth After 1 Day 02/28/17 09:50 Decubitus, Foot Right Deep Wound Culture - Preliminary Culture Initiated - Results Pending 02/27/17 11:41 Port/Picc Gram Stain - Final 02/27/17 11:41 Port/Picc Blood Culture - Preliminary Gram Negative [place] Right Ankle Wound Type: Diabetic Foot Ulcer Wound Present on Admission?: Yes Wound Staging: Stage III Length: 1.2 Width: 2.3 Depth: 0.3 Wound Bed Appearance: Slough Maria Elena Wound Appearance: Shiny, Taut Tunneling: No Undermining: No Drainage Description: Sanguineous Drainage Amount: None Drainage Odor: No Odor Dressing Status: Changed Primary Dressing: Alginate Secondary Dressing: Foam Dressing Dressing Change Date: 02/28/17 Dressing Change Time: 09:30 Dressing Change Patient Tolerance: Tolerated Well Microbiology: Microbiology 02/28/17 11:29 Port/Picc Blood Culture - Preliminary Culture Initiated - Results Pending 02/28/17 11:39 Peripheral/Iv Start Blood Culture - Preliminary Culture Initiated - Results Pending 02/27/17 11:40 Peripheral/Iv Start Gram Stain - Final 02/27/17 11:40 Peripheral/Iv Start Blood Culture - Preliminary No Growth After 1 Day 02/28/17 09:50 Decubitus, Foot Right Deep Wound Culture - Preliminary Culture Initiated - Results Pending 02/27/17 11:41 Port/Picc Gram Stain - Final 02/27/17 11:41 Port/Picc Blood Culture - Preliminary Gram Negative [place]
[2017-02-28] MEDS ORDERED: FALL RISK - PHARMACY CONSULT XX ONE (14:49)
--- NOTE | 2017-02-28 15:15 | Consultation ---
DATE OF CONSULT: 02/28/2017 FINDINGS Mrs. Ball is a 81-year-old female who is very well known to my surgical practice. I had diagnosed the patient perhaps about 8 years ago with an esophageal cancer. She did undergo chemoradiation and has done quite well until just recently. Recently the patient was found to have recurrence of her esophageal cancer. She has been undergoing chemotherapy as a result of her recurrent malignancy. She does have significant associated medical comorbidities and is known to our facility as a result of her frequent admissions. The patient developed recurrent diabetic foot ulcers as well and had recently presented to our immediate care facility. The patient was encouraged apparently to present to the hospital for admission but declined and followed up in our wound center. She was began on antibiotics as a result of her diabetic foot ulcers. Apparently wound cultures were obtained and positive for MRSA. The patient recently had presented to her oncologist and blood cultures were obtained during this visit in conjunction with lab work. She was found to have a positive blood culture and a component of leukocytosis and was therefore instructed to present to the hospital for admission. Today Angela was without complaints. She was in good spirits. She denied fever or chills currently. PAST MEDICAL HISTORY Performed by my nurse practitioner, Jadiel Ryan. PAST SURGICAL HISTORY Performed by my nurse practitioner, Jadiel Ryan. MEDICATIONS Performed by my nurse practitioner, Jadiel Ryan. ALLERGIES Performed by my nurse practitioner, Jadiel Ryan. SOCIAL HISTORY Performed by my nurse practitioner, Jadiel Ryan. FAMILY HISTORY Performed by my nurse practitioner, Jadiel Ryan. REVIEW OF SYSTEMS Performed by my nurse practitionerJadiel. PHYSICAL EXAMINATION GENERAL: Mrs. Ball is an elderly 81-year-old female, who as above, did not appear to be in acute distress. VITALS: Temperature 96.8, pulse 62, respirations 18, blood pressure 144/64, SAO2 99% on 2 liters per nasal cannula.. HEENT: Normocephalic. Pupils are equally round and react to light and accommodation. NECK: Supple without lymphadenopathy. CHEST: Clear to auscultation bilaterally. Attention was focused to the right infraclavicular region. Her [id number] is visible beneath the surface of the skin and is currently accessed. There is no surrounding erythema overlying the skin of the port itself. No evidence for fluctuance or tenderness noted upon palpation surrounding the port itself. HEART: Regular rate and rhythm. Normal S1 and S2 without gallops, murmurs or clicks. ABDOMEN: Palpation of the abdomen reveals it to be soft and nontender. I do not appreciate any evidence for hepatosplenomegaly nor abnormal masses. EXTREMITIES: Without clubbing, cyanosis, or edema. NEURO: Cranial nerves II-XII grossly intact. Patient is without focal motor or sensory deficits. LABORATORY/RADIOGRAPHIC EVALUATION The patient had a CBC today and her white count was 11.5. Hemoglobin was 10.1. BMP was obtained and sodium was elevated at 149. Chloride was slightly elevated at 117. Blood cultures have been obtained and have been positive for gram-negative rods. Blood cultures were positive both from her port as well as from a peripheral site. ASSESSMENT 81-year-old female with multiple medical comorbidities, recurrent esophageal cancer, currently undergoing chemotherapy, recently found to have bacteremia/ positive blood cultures for gram-negative rods. PLAN Removal of her Spjm-[id number]-Ehmaunrl. Apparently this case has been discussed with Infectious Disease who has recommended, as a result of the above indications, that the patient undergo removal of her Rqkv-[id number]-[id number]. It was my recommendation that this evening we go ahead and proceed with removal of her Axmv-V-Ehrzllzf. The above recommendations were discussed with the patient and her sister who was present. They understood and wished to proceed as above. ANGELA
--- NOTE | 2017-02-28 15:57 | Anesthesia Preoperative Report ---
Anesthesia Preoperative Record - Date and Time Date: 02/28/17 Preoperative Diagnosis: persistent bacterimia Proposed Procedure: Power port removal NPO Since Date: 02/28/17 NPO Since Time: 00:00 Allergies/Adverse Reactions: Allergies Allergy/AdvReac Type Severity Reaction Status Date / Time sulfamethoxazole Allergy Unknown hives Verified 02/11/17 18:50 trimethoprim Allergy Unknown HIVES Verified 02/11/17 18:50 niacin AdvReac Intermediate HIVES Verified 02/27/17 10:59 - Vital Signs Vital Signs: Temperature 98.8 F 02/28/17 15:40 Pulse Rate 72 02/28/17 15:41 Respiratory Rate 16 02/28/17 15:40 Blood Pressure 162/69 H 02/28/17 15:40 Pulse Oximetry 92 02/28/17 15:40 Height and Weight: Height 1.6 m Weight 77 kg Body Mass Index 30.1 - Medications Inpatient Medications: Current Medications Acetaminophen (Tylenol Arthritis) 650 mg PO DAILY PRN PRN Reason: Pain Last Admin: 02/27/17 15:57 Dose: 650 mg Acetaminophen (Tylenol) 500 mg PO Q5H PRN PRN Reason: Discomfort Last Admin: 02/28/17 00:18 Dose: 500 mg Albuterol/Ipratropium (Duoneb) 3 ml AEROSOL QID PRN PRN Reason: PRN orders Amiodarone HCl (Pacerone) 200 mg PO DAILY [facility] Last Admin: 02/28/17 09:17 Dose: 200 mg Amlodipine Besylate (Norvasc) 2.5 mg PO DAILY [facility] Last Admin: 02/28/17 09:16 Dose: 2.5 mg Ascorbic Acid (Vitamin C) 500 mg PO DAILY [facility] Last Admin: 02/28/17 09:18 Dose: 500 mg Bisacodyl (Dulcolax) 10 mg RECTALLY DAILY PRN PRN Reason: CON Bumetanide (Bumex Tab) 0.5 mg PO BID [facility] Last Admin: 02/28/17 09:14 Dose: 0.5 mg Calcium/Vitamin D (Os Jean-D 500) 1 tab PO BID [facility] Last Admin: 02/28/17 09:13 Dose: 1 tab Carvedilol (Coreg) 12.5 mg PO BIDWM [facility] Last Admin: 02/28/17 09:16 Dose: 12.5 mg Diphenhydramine HCl (Benadryl) 25 mg PO Q6H PRN PRN Reason: ITC Docusate Sodium (Colace) 100 mg PO TID [facility] Last Admin: 02/28/17 14:42 Dose: Not Given Guaifenesin (Mucinex La) 600 mg PO BID PRN PRN Reason: PRN orders Last Admin: 02/28/17 09:13 Dose: 600 mg Guaifenesin/Dextromethorphan (Robitussin Dm) 5 ml PO Q4H PRN Cefepime HCl 1 gm/ Sodium (Chloride) 100 mls @ 200 mls/hr IV Q6HR [facility] Last Infusion: 02/28/17 09:48 Dose: Infused Levofloxacin/Dextrose (Levaquin Premix) 750 mg in 150 mls @ 100 mls/hr IV Q24H [facility] Last Admin: 02/28/17 14:33 Dose: 100 mls/hr Vancomycin HCl 1,000 mg/ (Sodium Chloride) 250 mls @ 250 mls/hr IV Q24H [facility] Insulin Aspart (Novolog) 4 unit SQ WB [facility] Last Admin: 02/28/17 09:18 Dose: 4 unit Insulin Aspart (Novolog) 4 unit SQ WS [facility] Last Admin: 02/27/17 17:09 Dose: 4 unit Insulin Aspart (Novolog) 6 unit SQ WL [facility] Last Admin: 02/28/17 12:57 Dose: Not Given Insulin Detemir (Levemir) 20 unit SQ HS [facility] Last Admin: 02/27/17 20:36 Dose: 20 unit Isopropyl Alcohol (Nozin Nasal Swab) 1 each MARTINE 0600,1400,2200 [facility] Last Admin: 02/28/17 14:54 Dose: 1 each Lisinopril (Prinivil) 2.5 mg PO [facility] Last Admin: 02/27/17 20:36 Dose: 2.5 mg Lisinopril (Prinivil) 2.5 mg PO DAILY [facility] Last Admin: 02/28/17 09:16 Dose: 2.5 mg Magnesium Hydroxide (Mom) 30 ml PO DAILY PRN PRN Reason: Constipation Mirtazapine (Remeron) 15 mg PO [facility] Last Admin: 02/27/17 20:36 Dose: 15 mg Polyethylene Glycol (Miralax) 17 gm PO DAILY PRN PRN Reason: CON Potassium Chloride (K-Dur) 20 meq PO WB [facility] Last Admin: 02/28/17 09:17 Dose: 20 meq Sodium Chloride (Iv Flush) 10 ml IV PRN PRN PRN Reason: Flushing Last Admin: 02/28/17 14:29 Dose: 10 ml Sucralfate (Carafate) 1 gm PO ACHS DEB Last Admin: 02/28/17 13:22 Dose: Not Given Vitamin E (Vitamin E) 1,000 unit PO DAILY [facility] Last Admin: 02/28/17 09:13 Dose: 1,000 unit Home Medications: Home Medications Medication Instructions Recorded Confirmed Type Ascorbic Acid 500 mg PO DAILY #0 08/03/15 02/27/17 History diphenhydrAMINE HCl [Benadryl] 25 mg PO Q6H PRN #0 08/03/15 02/27/17 History Lisinopril 2.5 mg PO HS #0 07/20/16 02/27/17 History Amlodipine Besylate 2.5 mg PO DAILY #0 07/25/16 02/27/17 History Calcium Carbonate/Vitamin D3 1 tab PO BID #0 07/25/16 02/27/17 History [Calcium 600-Vit D3 200 Tablet] Carvedilol 12.5 mg PO BID #0 07/25/16 02/27/17 History Docusate Sodium [Colace] 100 mg PO TID #0 07/25/16 02/27/17 History Insulin Aspart [NovoLOG] 4 unit SQ WB #0 07/25/16 02/27/17 History Insulin Aspart [NovoLOG] 6 unit SQ WL #0 07/25/16 02/27/17 History Insulin Detemir [Levemir] 20 unit SQ HS #0 07/25/16 02/27/17 History Ipratropium/Albuterol Sulfate 1 vial AEROSOL QID PRN #0 07/25/16 02/27/17 History [Iprat-Albut 0.5-3(2.5) mg/3 ml] LORazepam [Lorazepam] 0.5 - 1 mg PO TID PRN #0 07/25/16 02/27/17 History Polyethylene Glycol 3350 [Miralax] 17 g PO DAILY PRN #0 07/25/16 02/27/17 History guaiFENesin [Mucinex] 600 mg PO BID PRN #0 07/25/16 02/27/17 History Acetaminophen [Acetaminophen 8 650 mg PO DAILY PRN #0 08/17/16 02/27/17 History Hour] Bisacodyl 10 mg RECTALLY DAILY PRN #0 08/17/16 02/27/17 History Insulin Aspart [NovoLOG] 4 unit SQ WS #0 08/17/16 02/27/17 History Albuterol Neb (0.083%) [Proventil 2.5 mg AEROSOL Q6HR 02/27/17 02/27/17 History Neb (0.083%)] Bumetanide 0.5 mg PO BID 02/27/17 02/27/17 History Guaifenesin/Dextromethorphan 237 ml PO Q4HR 02/27/17 02/27/17 History [Robitussin Cough-Chest Dm Liq] Hydrocodone/Acetaminophen ([place] 1 - 2 tab PO Q4HPRN 02/27/17 02/27/17 History 5-325 Tablet) Lisinopril [Prinivil] 2.5 mg PO DAILY 02/27/17 02/27/17 History Mirtazapine [Remeron] 15 mg PO HS 02/27/17 02/27/17 History Mupirocin Cream [Bactroban 2% 1 applicatio TOP TID 02/27/17 02/27/17 History Cream] Nystatin Cream [Mycostatin] 15 gm TP TID PRN 02/27/17 02/27/17 History [place]-3 Fatty Acids [Fish Oil 1,000 mg PO TID 02/27/17 02/27/17 History Concentrate] Potassium Chloride [K-Dur] 1 tab PO DAILY 02/27/17 02/27/17 History Vitamin E 1,000 unit PO DAILY 02/27/17 02/27/17 History Is Patient on Beta Gui?: Yes Beta Gui Last Dose Date/Time: 02/27/17 - Medical History Respiratory: Reports: Chronic Obstructive Pulmonary Disease (COPD) Cardiovascular: Reports: Congestive Heart Failure, Hypertension, High Cholesterol Gastrointestional: Reports: Gastroesophageal Reflux Disease Renal/Endocrine: Reports: Diabetes Mellitus Type 1, Renal Failure Other History: Reports: Cancer (Esophageal) - Surgical History Cardiac Surgeries/Treatments: Reports: Cardiac Catheterization, Pacemaker Respiratory Surgery/Treatments: Reports: Oxygen Administration GI Surgery/Treatments: Reports: Appendectomy, EGD (esophageal cancer) Musculoskeletal Surgery/Tx: Reports: Other (toe amputation on each foot) Reproductive Surgery/Treatment: Reports: Hysterectomy - Social History Smoking Status: Never smoker Hx Chewing Tobacco Use: No Second Hand Exposure: No Substance Use Type: does not use Alcohol Intake Frequency: does not drink - Pertinent Findings Laboratory: CBC and BMP 02/28/17 04:26 02/28/17 04:26 BMP 02/27/17 02/28/17 11:41 04:26 Sodium 142 149 H D Potassium 4.6 4.4 Chloride 112 H 117 H Carbon Dioxide 22 23 BUN 29.0 H 27.0 H Creatinine 1.6 H 1.4 H D Glucose 72 75 Calcium 8.7 8.8 Liver Function 02/27/17 Range/Units 11:41 Total Bilirubin 0.50 (0.20-1.30) MG/DL AST 16 (14-36) U/L ALT 30 (9-52) U/L Alkaline Phosphatase 70 (38-126) U/L Albumin 3.1 L (3.5-5.0) G/DL Urine 02/27/17 Range/Units 18:36 Urine Color Yellow (YELLOW) Urine Clarity Clear Urine pH 5.5 (5.0-8.0) Ur Specific [place] 1.015 (1.015-1.025) Urine Protein Negative (NEGATIVE) Urine Glucose (UA) Negative (NEGATIVE) EKG: Sinus Rhythm, A-fib (HX) Paced: 100% - Physical Exam Respiratory Exam: Present: lungs clear, decreased breath sounds-L Cardiovascular Exam: Present: regular rate and rhythm, pacemaker - Airway Assessment Mallampati Score: II TMD: 3 Fingerbreadths Neck Extension: good Overall Assessment: may be difficult mask vent, may be difficult intubation - ASA ASA Score: 3 - Plan Anesthesia: General TIVA - Discussion Discussion: Discussed risks/options/alternatives of anesthesia and questions answered. Patient consents. Nursing pain assessment noted. Present for Discussion: family member Attestation Statement: Prior to the delivery of any anesthetic medication, I examined the patient, developed the plan, obtained the patient's consent and discussed the risk and benefits of the procedure with the patient/guardian. - Additional Information Seen by Anesthesia: Yes
[2017-02-28] MEDS: NS 1,000 ML IV SCH (16:15)
[2017-02-28] MEDS ORDERED: BUPIVACAINE 0.25%/EPI 1:200,000 30ml SDV ID ONE (16:17)
[2017-02-28] MEDS ORDERED: PROPOFOL 500 MG/50 ML VIAL IV ONE (16:35)
[2017-02-28] MEDS ORDERED: NEOMYCIN/POLYMYXIN/BACITRACIN OINT PACKET TP ONE (16:56)
--- NOTE | 2017-02-28 17:01 | General Surgery Procedure Note ---
Date of Procedure: 02/28/17 Surgeon: Jessica Nursing Associate: Jadiel Ryan APRN Postoperative Diagnosis: Bacteremia, possible infected port-a-cath Procedure: removal of port-a-cath Estimated Blood Loss: See Anesthesia Record.
--- NOTE | 2017-02-28 17:05 | Anesthesia Postoperative Note ---
- Date and Time Date: 02/28/17 Time: 17:05 - Status Patient Participated in Evaluation: Patient Participated in Person Vital Signs: Temperature 98.8 F 02/28/17 15:40 Pulse Rate 72 02/28/17 15:41 Respiratory Rate 16 02/28/17 15:40 Blood Pressure 162/69 H 02/28/17 15:40 Pulse Oximetry 92 02/28/17 15:40 Respiratory Function: Airway Patent EKG: Sinus Rhythm Mental Status: Alert and Oriented Pain Intensity: 0 Hydration: IV Infusing Complications During Recover: None Apparent - Follow-Up Instructions Instructions: Per Surgeon
[2017-02-28] MEDS ORDERED: TRAMADOL 50 MG TABLET PO PRN (18:04)
--- NOTE | 2017-02-28 18:47 | Pharmacy Consult- Renal Dosing ---
Pharamcy Consul-Renal Dosing - Laboratory Information 02/27/17 02/28/17 11:41 04:26 BUN 29.0 H 27.0 H Creatinine 1.6 H 1.4 H D - Consult Information Levaquin and Cefepime doses adjusted for renal function. Levaquin changed to 750 mg IV Q48H Cefepime changed to 1 gm IV q8H Pharmacy will monitor and adjust as needed. Thank you, Fanny Velázquez [facility]
[2017-02-28] MEDS: MIRTAZAPINE 15 MG TABLET PO SCH (20:40)
[2017-02-28] MEDS: INSULIN DETEMIR 100unit/ml INJECTION SQ SCH (21:41)
[2017-02-28] MEDS: NS FLUSH BAG 500ml IV PRN (22:49)
[2017-03-01] MEDS: SALINE FLUSH 10ml SYRINGE IV PRN ×2 (05:41→16:54)
[2017-03-01] MEDS: SUCRALFATE 1 GM TABLET PO SCH ×4 (05:41→21:37)
[2017-03-01] MEDS: NOZIN NASAL SWAB NAS SCH ×3 (05:41→22:30)
[2017-03-01] MEDS: BUMETANIDE 1 MG TABLET PO SCH ×2 (09:15→21:36)
[2017-03-01] MEDS: VITAMIN E 1,000 UNIT CAPSULE PO SCH (09:15)
[2017-03-01] MEDS: CEFEPIME 1 GM in NS 100 ML IV SCH ×3 (09:15→23:22)
[2017-03-01] MEDS: CALCIUM 500 + VIT D 200 TABLET PO SCH ×2 (09:16→21:37)
[2017-03-01] MEDS: ASCORBIC ACID 500 MG TABLET PO SCH (09:16)
[2017-03-01] MEDS: AMLODIPINE 2.5 MG TABLET PO SCH (09:16)
[2017-03-01] MEDS: AMIODARONE 200 MG TABLET PO SCH (09:16)
[2017-03-01] MEDS: INSULIN ASPART 100unit/ml INJECTION SQ SCH ×3 (09:17→18:16)
[2017-03-01] MEDS: CARVEDILOL 12.5 MG TABLET PO SCH ×2 (09:17→18:16)
[2017-03-01] MEDS: DOCUSATE SODIUM 100 MG CAPSULE PO SCH ×3 (09:18→21:37)
[2017-03-01] MEDS: LISINOPRIL 2.5 MG TABLET PO SCH ×2 (09:19→21:36)
--- NOTE | 2017-03-01 09:43 | Infectious Disease Consult ---
Infectious Disease Consult Date of Consultation: 03/01/17 Requesting Physician: Vishnu Casiano Reason for Consultation: antibiotic recs History of Present Illness: Ms. Ball is a 81 y/o woman known to me from the wound clinic. 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 I haven't seen her in quite some time. She has a h/o esophageal cancer several years ago treated by Dr. Newman, and this was recently found to be recurrent. She has been receiving chemo from Dr. Newman, but hasn't been able to have it for the past 3 weeks due to concern for infection. She reports that she's been having shaking chills once daily for at least 1 week. She had blood cultures drawn on 02/[address] Newman, and these returned positive for a GNR. She was admitted here on 02/27/17. A blood culture drawn through her port here on 02/27 is also positive for a GNR. Her Port was removed yesterday. She is on Cefepime, levaquin and Vancomycin. She reports that her chills are better. She also reports that she has a wound on her RLE for "a week and a half." This was cultured yesterday. She has a boot on her RLE. Per wound clinic notes, her wound is R medial 1st MT head. Medications Home Medications Medication Instructions Recorded Confirmed Type Ascorbic Acid 500 mg PO DAILY #0 08/03/15 02/27/17 History diphenhydrAMINE HCl [Benadryl] 25 mg PO Q6H PRN #0 08/03/15 02/27/17 History Lisinopril 2.5 mg PO HS #0 07/20/16 02/27/17 History Amlodipine Besylate 2.5 mg PO DAILY #0 07/25/16 02/27/17 History Calcium Carbonate/Vitamin D3 1 tab PO BID #0 07/25/16 02/27/17 History [Calcium 600-Vit D3 200 Tablet] Carvedilol 12.5 mg PO BID #0 07/25/16 02/27/17 History Docusate Sodium [Colace] 100 mg PO TID #0 07/25/16 02/27/17 History Insulin Aspart [NovoLOG] 4 unit SQ WB #0 07/25/16 02/27/17 History Insulin Aspart [NovoLOG] 6 unit SQ WL #0 07/25/16 02/27/17 History Insulin Detemir [Levemir] 20 unit SQ HS #0 07/25/16 02/27/17 History Ipratropium/Albuterol Sulfate 1 vial AEROSOL QID PRN #0 07/25/16 02/27/17 History [Iprat-Albut 0.5-3(2.5) mg/3 ml] LORazepam [Lorazepam] 0.5 - 1 mg PO TID PRN #0 07/25/16 02/27/17 History Polyethylene Glycol 3350 [Miralax] 17 g PO DAILY PRN #0 07/25/16 02/27/17 History guaiFENesin [Mucinex] 600 mg PO BID PRN #0 07/25/16 02/27/17 History Acetaminophen [Acetaminophen 8 650 mg PO DAILY PRN #0 08/17/16 02/27/17 History Hour] Bisacodyl 10 mg RECTALLY DAILY PRN #0 08/17/16 02/27/17 History Insulin Aspart [NovoLOG] 4 unit SQ WS #0 08/17/16 02/27/17 History Albuterol Neb (0.083%) [Proventil 2.5 mg AEROSOL Q6HR 02/27/17 02/27/17 History Neb (0.083%)] Bumetanide 0.5 mg PO BID 02/27/17 02/27/17 History Guaifenesin/Dextromethorphan 237 ml PO Q4HR 02/27/17 02/27/17 History [Robitussin Cough-Chest Dm Liq] Hydrocodone/Acetaminophen ([place] 1 - 2 tab PO Q4HPRN 02/27/17 02/27/17 History 5-325 Tablet) Lisinopril [Prinivil] 2.5 mg PO DAILY 02/27/17 02/27/17 History Mirtazapine [Remeron] 15 mg PO HS 02/27/17 02/27/17 History Mupirocin Cream [Bactroban 2% 1 applicatio TOP TID 02/27/17 02/27/17 History Cream] Nystatin Cream [Mycostatin] 15 gm TP TID PRN 02/27/17 02/27/17 History [place]-3 Fatty Acids [Fish Oil 1,000 mg PO TID 02/27/17 02/27/17 History Concentrate] Potassium Chloride [K-Dur] 1 tab PO DAILY 02/27/17 02/27/17 History Vitamin E 1,000 unit PO DAILY 02/27/17 02/27/17 History Allergies Allergy/AdvReac Type Severity Reaction Status Date / Time sulfamethoxazole Allergy Unknown hives Verified 02/11/17 18:50 trimethoprim Allergy Unknown HIVES Verified 02/11/17 18:50 niacin AdvReac Intermediate HIVES Verified 02/27/17 10:59 PFSH Patient Stated Medical History Hearing Loss Yes: hearing aids Cardiac Arrhythmia Yes: afib Congestive Heart Failure Yes Hypertension Yes Chronic Obstructive Pulmonary Yes Disease (COPD) Sleep Apnea Yes Diabetes Mellitus Type 1 Yes Diabetes Mellitus Type 2 Yes Gastroesophageal Reflux Yes Disease Hx Urinary Tract Infection Yes Cellulitis Yes: foot MRSA Yes Sepsis Yes Clinic Medical History (Last Updated 02/11/17 @ 18:53 by Zoe Rodriguez [facility]) Diabetes (Chronic Medical) Heart disease (Chronic Medical) Neuropathy (Chronic Medical) Surgical History: Bilateral cataract extraction-2006. Appendectomy. Hysterectomy-2003. Cystoscopy 2008. Cardiac catheter-2008. EGD and diagnosis of esophageal cancer-2007. Port-A-Cath placement-2007. Bilateral toes amputations Family History: CHF, HTN, cancer - Social History Smoking status: Never smoker Substance use type: does not use Current occupational status: retired Does patient use chewing tobacco?: No Review of Systems All systems PM: 10-point ROS was reviewed, no additional remarkable complaints except - Constitutional Constitutional: Present: chills. Absent: fever(s) - EENMT Mouth/Throat: Present: changes in swallowing (a few weeks ago). Absent: sore throat - Cardiovascular Cardiovascular: Absent: chest pain - Respiratory Respiratory: Absent: cough, dyspnea Respiratory Comments: chronic O2 use - Gastrointestinal Gastrointestinal: Absent: abdominal pain, diarrhea, nausea - Genitourinary Genitourinary: Absent: dysuria - Musculoskeletal Musculoskeletal: Present: deformity (R Charcot foot deformity) - Integumentary/Breasts Integumentary: Absent: pruritus, rash - Neurological Neurological: Absent: headache(s) - Hematologic/Lymphatic Hematologic/Lymphatic: Present: other (Cancer) Exam Vital Signs: Temperature 96.3 F L 03/01/17 08:00 Pulse Rate 64 03/01/17 08:00 Respiratory Rate 17 03/01/17 08:00 Blood Pressure 150/58 H 03/01/17 08:00 Pulse Oximetry 93 03/01/17 08:00 Height/Weight/BMI: Height 1.6 m Weight 75.3 kg Body Mass Index 30.1 - Constitutional Present: no acute distress, well nourished, well developed - Routine HEENT Exam Head: Present: normocephalic, atraumatic Eye: Present: EOMI, PERRL ENT: Present: mucous membranes moist - Routine Neck Exam Present: supple - Routine Respiratory Exam Present: CTA bilaterally - Routine Cardiovascular Exam Present: RRR - Routine Abdominal Exam Present: soft, normoactive bowel sounds, non distended, non tender - Routine Extremities Exam Absent: edema Comments: RLE is in a boot - Routine Skin Exam Present: intact, wounds (covered, unable to be visualized due to boot). Absent : rash - Routine Neurological Exam Present: alert, oriented X3, CN II-XII intact - Routine Psychiatric Exam Present: normal affect, normal thought process Results - Labs CBC & Chem 7: 03/01/17 04:01 03/01/17 04:01 Microbiology Results: Microbiology 03/01/17 04:00 Peripheral/Iv Start Blood Culture - Preliminary Culture Initiated - Results Pending 03/01/17 04:02 Peripheral/Iv Start Blood Culture - Preliminary Culture Initiated - Results Pending 02/28/17 16:50 Catheter Tip, Uvc Catheter Tip Culture - Preliminary Culture Initiated - Results Pending 02/28/17 16:50 Foreign Object Foreign Body Culture - Preliminary Culture Initiated - Results Pending 02/28/17 11:29 Port/Picc Blood Culture - Preliminary Culture Initiated - Results Pending 02/28/17 11:39 Peripheral/Iv Start Blood Culture - Preliminary Culture Initiated - Results Pending 02/27/17 11:40 Peripheral/Iv Start Gram Stain - Final 02/27/17 11:40 Peripheral/Iv Start Blood Culture - Preliminary No Growth After 1 Day 02/28/17 09:50 Decubitus, Foot Right Deep Wound Culture - Preliminary Culture Initiated - Results Pending 02/27/17 11:41 Port/Picc Gram Stain - Final 02/27/17 11:41 Port/Picc Blood Culture - Preliminary Gram Negative [place] - Impressions CXR with LLL consolidation Impression: Sepsis/septicemia with GNR, source unclear, ? GI vs Port vs wound. s/p Port removal 02/28/17 Esophageal cancer Diabetic foot wound R 1st MT head, wound culture with MRSA. COPD-chronic oxygen use at 2 liters Chronic atrial fibrillation Hypertension GERD Hyperlipidemia Obstructive sleep apnea Chronic kidney disease History of anemia and GI bleed. Allergies to cipro and sulfa (rash). Recommendation: I called [facility] this morning. They would not give me a verbal report on the GNR, and they would not fax it here to [place]. They would only fax it to my office in [place]. I called my office to have them fax it here. After nearly 2 hours of waiting, I still don't have it. I would recommend stopping the Vancomycin. Continue the other antibiotics for now, but she could be narrowed to only one antibiotic in the near future, pending ID & sensitivity of the GNR. I would recommend using a peripheral IV for at least 24-48 hours before placing another central line. Recommend PICC. She will need 14 days of antibiotics for the GNR.
--- NOTE | 2017-03-01 11:57 | Operative Note ---
DATE OF PROCEDURE 02/28/2017 SURGEON Phil Lopez MD PREOPERATIVE DIAGNOSIS Bacteremia, positive blood culture from Port-A-Cath catheter in an immunocompromised patient. POSTOPERATIVE DIAGNOSIS Bacteremia, positive blood culture from Port-A-Cath catheter in an immunocompromised patient. PROCEDURE Removal of Xjjr-Ycrv-Ebdm catheter. ANESTHESIA TIVA/local BRIEF HISTORY/INDICATIONS Mrs. Ball is a 81-year-old female who is very well known my surgical practice. She has been undergoing chemotherapy as a result of recurrent esophageal cancer. The patient recently was found to have a component of leukocytosis and had undergone blood cultures which did return as positive for gram-negative cande. Cultures were also obtained from her [place] catheter for blood cultures which also revealed gram-positive cande. As a result of the above indications, it was recommended to the patient she undergo removal of her Port-A -Cath. The patient presents today to undergo this procedure. DESCRIPTION OF PROCEDURE After informed consent was obtained, the patient was brought to the operative suite and the right anterior chest was prepped and draped in sterile fashion. Formal time-out was then completed. 0.5% Marcaine with epinephrine was then injected circumferentially around the Port-A-Cath within the right infraclavicular region. A 2-3 cm incision was then made overlying the area of analgesia and through her prior surgical incision site. Dissection was then carried down to the underlying reservoir. The three Prolene sutures securing the reservoir to the pectoralis fascia were removed. Next a [id number]-[id number]-[id number] suture of 3-0 Vicryl was then placed adjacent to the catheter. The catheter was then removed and the previously placed [id number] suture was then tied securely resulting in closure of the catheter tract. The catheter was then submitted for culture. Deep subcutaneous tissues were reapproximated in layers in a running fashion with 3-0 Vicryl. Skin edges were then imbricated by placing a few simple interrupted sutures of 4-0 Prolene. The patient tolerated the procedure without difficulty and is in the process of awakening from her anesthetic and will be sent back to Recovery Room once deemed in stable condition. ANGELA
--- NOTE | 2017-03-01 18:11 | Progress Note ---
Subjective: F/U: Bacteremia Doing well this evening. Worked with therapy-they are encouraging her to walk in room 3 times a day. Feels her strength is okay. Eating well. Breathing well. Did have some chills earlier. Objective Vital signs: Temperature 95.6 F L 03/01/17 15:36 Pulse Rate 60 03/01/17 15:36 Respiratory Rate 17 03/01/17 15:36 Blood Pressure 119/57 03/01/17 15:36 Pulse Oximetry 98 03/01/17 15:36 Rhythm: Sinus Tachycardia Height/Weight/BMI: Height 1.6 m Weight 75.3 kg Body Mass Index 30.1 - Constitutional Present: well nourished, well developed, cooperative - Routine HEENT Exam Head: Present: normocephalic, atraumatic Eye: Present: EOMI, PERRL ENT: Present: mucous membranes moist - Routine Respiratory Exam Present: decreased breath sounds. Absent: respiratory distress, rhonchi, wheezes, crackles - Routine Cardiovascular Exam Present: irregular rhythm, irregularly irregular - Routine Abdominal Exam Present: soft, normoactive bowel sounds, non distended, non tender - Routine Extremities Exam Present: cyanosis, clubbing. Absent: no edema - Routine Musculoskeletal Exam Musculoskeletal: Present: no clubbing or cyanosis, normal strength - Routine Skin Exam Present: intact, warm, wounds (Port removal wound covered and dry. No tenderness ) - Routine Neurological Exam Present: alert, oriented X3, CN II-XII intact, moving all extremities, vision grossly intact, hearing grossly intact. Absent: motor deficit - Routine Psychiatric Exam Present: normal affect, normal thought process, cooperative, good insight, good judgment Results - Labs CBC & Chem 7: 03/01/17 04:01 03/01/17 04:01 Microbiology Results: Microbiology 02/28/17 09:50 Decubitus, Foot Right Gram Stain - Final 02/28/17 09:50 Decubitus, Foot Right Deep Wound Culture - Preliminary Gram Positive Organism 02/27/17 11:41 Port/Picc Gram Stain - Final 02/27/17 11:41 Port/Picc Blood Culture - Preliminary [place] species 02/27/17 11:40 Peripheral/Iv Start Gram Stain - Final 02/27/17 11:40 Peripheral/Iv Start Blood Culture - Preliminary No Growth After 2 Days 02/28/17 11:29 Port/Picc Blood Culture - Preliminary No Growth After 1 Day 02/28/17 11:39 Peripheral/Iv Start Blood Culture - Preliminary No Growth After 1 Day 02/28/17 16:50 Foreign Object Gram Stain - Final 02/28/17 16:50 Foreign Object Foreign Body Culture - Preliminary Culture Initiated - Results Pending 03/01/17 04:00 Peripheral/Iv Start Blood Culture - Preliminary Culture Initiated - Results Pending 03/01/17 04:02 Peripheral/Iv Start Blood Culture - Preliminary Culture Initiated - Results Pending 02/28/17 16:50 Catheter Tip, Uvc Catheter Tip Culture - Preliminary Culture Initiated - Results Pending Assessment and Plan (1) Sepsis Current visit: Yes Status: Acute (2) MRSA (methicillin resistant staph aureus) culture positive Current visit: No Status: Acute DVT Prophylaxis: SCD's Resuscitation Status: Do Not Resuscitate Assessment and Plan: Impression Sepsis-1. Leukocytosis, 2. Known ulcer wound,-MRSA positive, 3. Bacteremia MRSA positive wound Culture Bacteremia- outpt blood culture from 02/26- Gram negative bacillus. Blood cultures from this admission positive. Esophageal cancer-current treatment under the care of Dr. 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 Anticoagulation was stopped 08/2016 Plan Port removed yesterday. Cultures pending. Dr Fernandez consulted. Recommended stopping Vancomycin and started oral Doxycycline for MRSA coverage of wound. Checking on prior C/S results. Continue cefepime and levofloxacin for now - she hope to be able to streamline antibiotics in near future. Continue peripheral IV site-need to wait and be sure bacteremia has cleared before placing PICC. Sugars stable - continue current glycemic control. Respiratory status stable. Nursing to ambulate pt in room TID to help strength. Monitor lab. Time spent with patient care 25 minutes. Hospital Course Summary Disclaimer: The visit summary below is not to be considered part of the above Progress Note. Hospital Course: 02/27/17- Admission Sepsis-1. Leukocytosis, 2. Known ulcer wound,-MRSA positive, 3. Bacteremia MRSA positive wound Culture Bacteremia- outpt blood culture from 02/26- Gram negative bacillus Esophageal cancer-current treatment under the care of Dr. Newman COPD-chronic oxygen use at 2 liters Chronic atrial fibrillation Hypertension GERD Hyperlipidemia Obstructive sleep apnea Chronic kidney disease History of anemia and GI bleed. Anticoagulation was stopped 08/2016 Plan Admit patient to inpatient status under care of Dr. Casiano for bacteremia, sepsis Upon admission the following laboratory studies are obtained CBC, CMP, venous lactate, pro calcitonin, blood culture 2 with one drawn out of Port-A-Cath. Obtain UA on admission. Patient empirically started on IV Levaquin and IV cefepime for treatment of sepsis and bacteremia. MRSA is to tip to vancomycin. Repeat blood cultures are pending at time of admission. Recheck venous lactate later this afternoon as per sepsis protocol Normal saline at 100 ML per hour for gentle hydration NT home oxygen at baseline 2 liters by nasal cannula. Will monitor Accu-Cheks routinely Awaiting nursing staff to reconcile home medications, these need to be reviewed and ordered. Patient did have an active GI bleed in August 2016, She has been off Anticoagulation since that time. Noted to be on Carafate for GI protection SCDs to bilateral lower extremity for DVT prophylaxis Check CBC and BMP tomorrow morning to follow blood counts, renal function and electrolytes In patient does request to be a do not resuscitate and this order is written Will discuss further orders and plan of care with attending, Dr. Casiano Time of discharge medical care will return to primary care provider, Dr. Dietz 02/28/[address] Lopez Given bacteremia 2 cultures, consult placed to Dr. Fernandez for further infectious disease recommendations. Will redraw cultures 1 out of Port-A-Cath, one peripheral draw. Consult placed to Dr. Lopez as Port-A-Cath will likely need to be removed. Outpatient foot wound culture + MRSA from 02/13/17. Wound team changing dressing every other day. Continue on triple antibiotic coverage including vancomycin, cefepime and Levaquin. Clinically Angela appears to be doing well without complaints. Vital signs remained stable and she is afebrile. NT need to follow routine labs. Some slightly up at 149, renal function improving. Creatinine today 1.4. Procalcitonin trending down. Case discussed with attending, Wound nurse, Surgical team. 03/01/17 Port removed yesterday. Cultures pending. Dr Fernandez consulted. Recommended stopping Vancomycin and started oral Doxycycline for MRSA coverage of wound. Checking on prior C/S results. Continue cefepime and levofloxacin for now - she hope to be able to streamline antibiotics in near future. Continue peripheral IV site-need to wait and be sure bacteremia has cleared before placing PICC. Nursing to ambulate pt in room TID to help strength.
[2017-03-01] MEDS: INSULIN DETEMIR 100unit/ml INJECTION SQ SCH (21:34)
[2017-03-01] MEDS: MIRTAZAPINE 15 MG TABLET PO SCH (21:37)
[2017-03-02] MEDS: NOZIN NASAL SWAB NAS SCH ×3 (05:52→21:06)
[2017-03-02] MEDS: SUCRALFATE 1 GM TABLET PO SCH ×4 (05:52→21:06)
[2017-03-02] MEDS: CEFEPIME 1 GM in NS 100 ML IV SCH ×3 (06:37→23:07)
[2017-03-02] MEDS: SALINE FLUSH 10ml SYRINGE IV PRN (06:39)
[2017-03-02] MEDS: AMIODARONE 200 MG TABLET PO SCH (08:16)
[2017-03-02] MEDS: BUMETANIDE 1 MG TABLET PO SCH ×2 (08:16→21:06)
[2017-03-02] MEDS: VITAMIN E 1,000 UNIT CAPSULE PO SCH (08:16)
[2017-03-02] MEDS: LISINOPRIL 2.5 MG TABLET PO SCH ×2 (08:16→21:06)
[2017-03-02] MEDS: INSULIN ASPART 100unit/ml INJECTION SQ SCH ×3 (08:16→17:17)
[2017-03-02] MEDS: CALCIUM 500 + VIT D 200 TABLET PO SCH ×2 (08:16→21:07)
[2017-03-02] MEDS: ASCORBIC ACID 500 MG TABLET PO SCH (08:17)
[2017-03-02] MEDS: DOCUSATE SODIUM 100 MG CAPSULE PO SCH ×3 (08:17→21:07)
[2017-03-02] MEDS: AMLODIPINE 2.5 MG TABLET PO SCH (08:17)
[2017-03-02] MEDS: LEVOFLOXACIN PB 750 MG/150 ML BAG IV SCH (08:17)
[2017-03-02] MEDS: CARVEDILOL 12.5 MG TABLET PO SCH ×2 (08:17→17:17)
[2017-03-02] MEDS: D5W 1,000 ML IV SCH (11:19)
--- NOTE | 2017-03-02 15:16 | Progress Note ---
Subjective: Feeling much better today, energy improved, no fevers, chills, nausea. Tired this afternoon as she has had multiple visitors this morning. Bowels moving. No dysuria. Objective Vital signs: Temperature 97.8 F 03/02/17 07:45 Pulse Rate 66 03/02/17 07:45 Respiratory Rate 18 03/02/17 07:45 Blood Pressure 156/73 H 03/02/17 07:45 Pulse Oximetry 95 03/02/17 07:45 Rhythm: Sinus Tachycardia Height/Weight/BMI: Height 1.6 m Weight 75.8 kg Body Mass Index 30.1 - Constitutional Present: no acute distress, well nourished, well developed - Routine HEENT Exam Head: Present: normocephalic, atraumatic Eye: Present: EOMI, PERRL ENT: Present: mucous membranes moist, dentition normal - Routine Respiratory Exam Present: CTA bilaterally. Absent: accessory muscle use, rales, rhonchi - Routine Cardiovascular Exam Present: RRR. Absent: murmur - Routine Abdominal Exam Present: soft, normoactive bowel sounds. Absent: distended, rebound - Routine Extremities Exam Present: pulses intact, normal capillary refill, calf tenderness. Absent: edema - Routine Skin Exam Present: dry, warm. Absent: rash - Routine Neurological Exam Present: alert, oriented X3, normal speech - Routine Psychiatric Exam Present: normal affect, normal thought process Results - Labs CBC & Chem 7: 03/02/17 05:30 03/02/17 05:30 Microbiology Results: Microbiology 02/27/17 11:40 Peripheral/Iv Start Gram Stain - Final 02/27/17 11:40 Peripheral/Iv Start Blood Culture - Preliminary No Growth After 3 Days 02/28/17 11:29 Port/Picc Blood Culture - Preliminary No Growth After 2 Days 02/28/17 11:39 Peripheral/Iv Start Blood Culture - Preliminary No Growth After 2 Days 02/28/17 09:50 Decubitus, Foot Right Gram Stain - Final 02/28/17 09:50 Decubitus, Foot Right Deep Wound Culture - Preliminary Staphylococcus aureus Yeast Coag negative Staphylococcus 02/27/17 11:41 Port/Picc Gram Stain - Final 02/27/17 11:41 Port/Picc Blood Culture - Preliminary Pantoea species 03/01/17 04:00 Peripheral/Iv Start Blood Culture - Preliminary No Growth After 1 Day 03/01/17 04:02 Peripheral/Iv Start Blood Culture - Preliminary No Growth After 1 Day 02/28/17 16:50 Catheter Tip, Uvc Catheter Tip Culture - Preliminary No Growth After 1 Day 02/28/17 16:50 Foreign Object Gram Stain - Final 02/28/17 16:50 Foreign Object Foreign Body Culture - Preliminary No Growth After 1 Day Assessment and Plan Resuscitation Status: Do Not Resuscitate Assessment and Plan: Impression Sepsis-1. Leukocytosis, 2. Known ulcer wound,-MRSA positive, 3. Bacteremia MRSA positive wound Culture Bacteremia- outpt blood culture from 02/26- Gram negative bacillus. Blood cultures from this admission positive. Esophageal cancer-current treatment under the care of Dr. 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 Anticoagulation was stopped 08/2016 Hypernatremia Plan Port removed 11/[address] Fernandez consulted 03/01. Recommended stopping Vancomycin and started oral Doxycycline for MRSA coverage of wound. Checking on prior C/S results. Continue cefepime and levofloxacin for now - she hope to be able to streamline antibiotics in near future. Continue peripheral IV site--> will plan for PICC placement tomorrow for antibiotic management Encouraged free water intake, will give a liter of D5 @ 50 cc/hour today Sugars stable - continue current glycemic control Respiratory status stable. Nursing to ambulate pt in room TID to help strength. Monitor lab with repeat renal panel, CBC in AM Hospital Course Summary Disclaimer: The visit summary below is not to be considered part of the above Progress Note. Hospital Course: 02/27/17- Admission Sepsis-1. Leukocytosis, 2. Known ulcer wound,-MRSA positive, 3. Bacteremia MRSA positive wound Culture Bacteremia- outpt blood culture from 02/26- Gram negative bacillus Esophageal cancer-current treatment under the care of Dr. Newman COPD-chronic oxygen use at 2 liters Chronic atrial fibrillation Hypertension GERD Hyperlipidemia Obstructive sleep apnea Chronic kidney disease History of anemia and GI bleed. Anticoagulation was stopped 08/2016 Plan Admit patient to inpatient status under care of Dr. Casiano for bacteremia, sepsis Upon admission the following laboratory studies are obtained CBC, CMP, venous lactate, pro calcitonin, blood culture 2 with one drawn out of Port-A-Cath. Obtain UA on admission. Patient empirically started on IV Levaquin and IV cefepime for treatment of sepsis and bacteremia. MRSA is to tip to vancomycin. Repeat blood cultures are pending at time of admission. Recheck venous lactate later this afternoon as per sepsis protocol Normal saline at 100 ML per hour for gentle hydration NT home oxygen at baseline 2 liters by nasal cannula. Will monitor Accu-Cheks routinely Awaiting nursing staff to reconcile home medications, these need to be reviewed and ordered. Patient did have an active GI bleed in August 2016, She has been off Anticoagulation since that time. Noted to be on Carafate for GI protection SCDs to bilateral lower extremity for DVT prophylaxis Check CBC and BMP tomorrow morning to follow blood counts, renal function and electrolytes In patient does request to be a do not resuscitate and this order is written Will discuss further orders and plan of care with attending, Dr. Casiano Time of discharge medical care will return to primary care provider, Dr. Dietz 02/28/[address] Lopez Given bacteremia 2 cultures, consult placed to Dr. Fernandez for further infectious disease recommendations. Will redraw cultures 1 out of Port-A-Cath, one peripheral draw. Consult placed to Dr. Lopez as Port-A-Cath will likely need to be removed. Outpatient foot wound culture + MRSA from 02/13/17. Wound team changing dressing every other day. Continue on triple antibiotic coverage including vancomycin, cefepime and Levaquin. Clinically Angela appears to be doing well without complaints. Vital signs remained stable and she is afebrile. NT need to follow routine labs. Some slightly up at 149, renal function improving. Creatinine today 1.4. Procalcitonin trending down. Case discussed with attending, Wound nurse, Surgical team. 03/01/17 Port removed yesterday. Cultures pending. Dr Fernandez consulted. Recommended stopping Vancomycin and started oral Doxycycline for MRSA coverage of wound. Checking on prior C/S results. Continue cefepime and levofloxacin for now - she hope to be able to streamline antibiotics in near future. Continue peripheral IV site-need to wait and be sure bacteremia has cleared before placing PICC. Nursing to ambulate pt in room TID to help strength. 03/02/17 Work on NIPPV with mask to vent for discharge; appreciate Dr. Bui's input Diamox 250 mg BID Continue lasix as ordered Start KCl 40 meq BID Repeat renal panel, CBC in AM for surveillance Discuss further re: dispo plans and safe living situation for her Nystatin powder to fungal rash Monitor strict I/Os and daily weights, continue orourke with diuresis Continue SCDs for DVT prophylaxis and encourage ambulation
[2017-03-02] MEDS: INSULIN DETEMIR 100unit/ml INJECTION SQ SCH (21:05)
[2017-03-02] MEDS: MIRTAZAPINE 15 MG TABLET PO SCH (21:06)
[2017-03-02] MEDS: NS 1,000 ML IV SCH (23:26)
[2017-03-03] MEDS: NOZIN NASAL SWAB NAS SCH ×3 (06:21→21:29)
[2017-03-03] MEDS: SUCRALFATE 1 GM TABLET PO SCH ×4 (06:21→21:29)
[2017-03-03] MEDS: CEFEPIME 1 GM in NS 100 ML IV SCH ×3 (06:21→23:10)
[2017-03-03] MEDS: INSULIN ASPART 100unit/ml INJECTION SQ SCH ×3 (08:53→17:31)
[2017-03-03] MEDS: DOCUSATE SODIUM 100 MG CAPSULE PO SCH ×3 (08:54→21:29)
[2017-03-03] MEDS: CALCIUM 500 + VIT D 200 TABLET PO SCH ×2 (08:54→21:29)
[2017-03-03] MEDS: BUMETANIDE 1 MG TABLET PO SCH ×2 (08:54→21:29)
[2017-03-03] MEDS: ASCORBIC ACID 500 MG TABLET PO SCH (08:54)
[2017-03-03] MEDS: LISINOPRIL 2.5 MG TABLET PO SCH ×2 (08:54→21:29)
[2017-03-03] MEDS: VITAMIN E 1,000 UNIT CAPSULE PO SCH (08:54)
[2017-03-03] MEDS: AMIODARONE 200 MG TABLET PO SCH (08:55)
[2017-03-03] MEDS: AMLODIPINE 2.5 MG TABLET PO SCH (08:55)
[2017-03-03] MEDS: CARVEDILOL 12.5 MG TABLET PO SCH ×2 (08:55→17:31)
[2017-03-03] MEDS: D5W 1,000 ML IV SCH (08:56)
--- NOTE | 2017-03-03 12:15 | Progress Note ---
Subjective: Feeling much better today. No fevers, still not taking much po but rested well overnight. Objective Vital signs: Temperature 97.2 F 03/03/17 07:31 Pulse Rate 75 03/03/17 07:31 Respiratory Rate 16 03/03/17 07:31 Blood Pressure 147/67 H 03/03/17 07:31 Pulse Oximetry 96 03/03/17 07:31 Rhythm: Normal Sinus Rhythm Height/Weight/BMI: Height 1.6 m Weight 75.8 kg Body Mass Index 30.1 - Constitutional Present: no acute distress, well nourished, well developed - Routine HEENT Exam Head: Present: normocephalic, atraumatic Eye: Present: EOMI, PERRL ENT: Present: mucous membranes moist, oropharynx clear - Routine Respiratory Exam Present: CTA bilaterally. Absent: accessory muscle use, rales, rhonchi - Routine Cardiovascular Exam Present: RRR. Absent: murmur - Routine Abdominal Exam Present: soft. Absent: tenderness, non distended - Routine Extremities Exam Present: pulses intact, normal capillary refill. Absent: edema - Routine Skin Exam Present: dry, warm. Absent: rash - Routine Neurological Exam Present: alert - Routine Lymphatic Exam Lymphatic: Absent: adenopathy - Routine Psychiatric Exam Present: normal affect, normal thought process Results - Labs CBC & Chem 7: 03/03/17 05:55 03/03/17 05:55 Microbiology Results: Microbiology 02/27/17 11:40 Peripheral/Iv Start Gram Stain - Final 02/27/17 11:40 Peripheral/Iv Start Blood Culture - Preliminary No Growth After 4 Days 02/28/17 11:29 Port/Picc Blood Culture - Preliminary No Growth After 3 Days 02/28/17 11:39 Peripheral/Iv Start Blood Culture - Preliminary No Growth After 3 Days 02/28/17 09:50 Decubitus, Foot Right Gram Stain - Final 02/28/17 09:50 Decubitus, Foot Right Deep Wound Culture - Final Staphylococcus aureus Yeast, not C. albicans Coag negative Staphylococcus 03/01/17 04:00 Peripheral/Iv Start Blood Culture - Preliminary No Growth After 2 Days 03/01/17 04:02 Peripheral/Iv Start Blood Culture - Preliminary No Growth After 2 Days 02/28/17 16:50 Catheter Tip, Uvc Catheter Tip Culture - Preliminary No Growth After 2 Days 02/28/17 16:50 Foreign Object Gram Stain - Final 02/28/17 16:50 Foreign Object Foreign Body Culture - Preliminary No Growth After 2 Days 02/27/17 11:41 Port/Picc Gram Stain - Final 02/27/17 11:41 Port/Picc Blood Culture - Preliminary Pantoea species Assessment and Plan DVT Prophylaxis: SCD's Resuscitation Status: Do Not Resuscitate Assessment and Plan: Impression Sepsis-1. Leukocytosis, 2. Known ulcer wound,-MRSA positive, 3. Bacteremia MRSA positive wound Culture Bacteremia- outpt blood culture from 02/26- Gram negative bacillus. Blood cultures from this admission positive as noted below Esophageal cancer-current treatment under the care of Dr. 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 Anticoagulation was stopped 08/2016 Hypernatremia Plan Port removed 02/28 with cultures pending --> cultures reviewed with MIKE and coag neg staph thus far Dr Fernandez consulted 03/01. Recommended stopping Vancomycin and started oral Doxycycline for MRSA coverage of wound. Checking on prior C/S results. Continue cefepime and levofloxacin for now - she hopes to be able to streamline antibiotics in near future, will discuss again Saturday. --> repeat blood cultures from 03/01 with NGTD thus far Encouraged free water intake, Na improving slowly, will continue D5 @ 50 cc/ hour today and likely can stop tomorrow. Sugars stable - continue current glycemic control Respiratory status stable. Nursing will continue to ambulate pt in room TID to help strength PT/OT evaluation in AM for further recommendations Monitor lab with repeat renal panel, CBC in AM Hospital Course Summary Disclaimer: The visit summary below is not to be considered part of the above Progress Note. Hospital Course: 02/27/17- Admission Sepsis-1. Leukocytosis, 2. Known ulcer wound,-MRSA positive, 3. Bacteremia MRSA positive wound Culture Bacteremia- outpt blood culture from 02/26- Gram negative bacillus Esophageal cancer-current treatment under the care of Dr. Newman COPD-chronic oxygen use at 2 liters Chronic atrial fibrillation Hypertension GERD Hyperlipidemia Obstructive sleep apnea Chronic kidney disease History of anemia and GI bleed. Anticoagulation was stopped 08/2016 Plan Admit patient to inpatient status under care of Dr. Casiano for bacteremia, sepsis Upon admission the following laboratory studies are obtained CBC, CMP, venous lactate, pro calcitonin, blood culture 2 with one drawn out of Port-A-Cath. Obtain UA on admission. Patient empirically started on IV Levaquin and IV cefepime for treatment of sepsis and bacteremia. MRSA is to tip to vancomycin. Repeat blood cultures are pending at time of admission. Recheck venous lactate later this afternoon as per sepsis protocol Normal saline at 100 ML per hour for gentle hydration NT home oxygen at baseline 2 liters by nasal cannula. Will monitor Accu-Cheks routinely Awaiting nursing staff to reconcile home medications, these need to be reviewed and ordered. Patient did have an active GI bleed in August 2016, She has been off Anticoagulation since that time. Noted to be on Carafate for GI protection SCDs to bilateral lower extremity for DVT prophylaxis Check CBC and BMP tomorrow morning to follow blood counts, renal function and electrolytes In patient does request to be a do not resuscitate and this order is written Will discuss further orders and plan of care with attending, Dr. Casiano Time of discharge medical care will return to primary care provider, Dr. Dietz 02/28/[address] Lopez Given bacteremia 2 cultures, consult placed to Dr. Fernandez for further infectious disease recommendations. Will redraw cultures 1 out of Port-A-Cath, one peripheral draw. Consult placed to Dr. Lopez as Port-A-Cath will likely need to be removed. Outpatient foot wound culture + MRSA from 02/13/17. Wound team changing dressing every other day. Continue on triple antibiotic coverage including vancomycin, cefepime and Levaquin. Clinically Angela appears to be doing well without complaints. Vital signs remained stable and she is afebrile. NT need to follow routine labs. Some slightly up at 149, renal function improving. Creatinine today 1.4. Procalcitonin trending down. Case discussed with attending, Wound nurse, Surgical team. 03/01/17 Port removed yesterday. Cultures pending. Dr Fernandez consulted. Recommended stopping Vancomycin and started oral Doxycycline for MRSA coverage of wound. Checking on prior C/S results. Continue cefepime and levofloxacin for now - she hope to be able to streamline antibiotics in near future. Continue peripheral IV site-need to wait and be sure bacteremia has cleared before placing PICC. Nursing to ambulate pt in room TID to help strength. 03/02/17 Work on NIPPV with mask to vent for discharge; appreciate Dr. Bui's input Diamox 250 mg BID Continue lasix as ordered Start KCl 40 meq BID Repeat renal panel, CBC in AM for surveillance Discuss further re: dispo plans and safe living situation for her Nystatin powder to fungal rash Monitor strict I/Os and daily weights, continue orourke with diuresis Continue SCDs for DVT prophylaxis and encourage ambulation 03/03/17 Port removed 02/28 with cultures pending --> cultures reviewed with MIKE and coag neg staph thus far Dr Fernandez consulted 03/01. Recommended stopping Vancomycin and started oral Doxycycline for MRSA coverage of wound. Checking on prior C/S results. Continue cefepime and levofloxacin for now - she hopes to be able to streamline antibiotics in near future, will discuss again Saturday. --> repeat blood cultures from 03/01 with NGTD thus far Encouraged free water intake, Na improving slowly, will continue D5 @ 50 cc/ hour today and likely can stop tomorrow. Sugars stable - continue current glycemic control Respiratory status stable. Nursing will continue to ambulate pt in room TID to help strength PT/OT evaluation in AM for further recommendations Monitor lab with repeat renal panel, CBC in AM
[2017-03-03] MEDS: INSULIN DETEMIR 100unit/ml INJECTION SQ SCH (21:28)
[2017-03-03] MEDS: MIRTAZAPINE 15 MG TABLET PO SCH (21:29)
[2017-03-04] MEDS: D5W 1,000 ML IV SCH (06:03)
[2017-03-04] MEDS: NOZIN NASAL SWAB NAS SCH ×3 (06:03→21:15)
[2017-03-04] MEDS: SUCRALFATE 1 GM TABLET PO SCH ×4 (06:07→21:15)
[2017-03-04] MEDS: CEFEPIME 1 GM in NS 100 ML IV SCH (06:13)
[2017-03-04] MEDS: ACETAMINOPHEN 500 MG TABLET PO PRN (06:14)
[2017-03-04] MEDS: BUMETANIDE 1 MG TABLET PO SCH ×2 (10:33→21:13)
[2017-03-04] MEDS: INSULIN ASPART 100unit/ml INJECTION SQ SCH ×3 (10:33→17:36)
[2017-03-04] MEDS: CARVEDILOL 12.5 MG TABLET PO SCH ×2 (10:33→17:12)
[2017-03-04] MEDS: VITAMIN E 1,000 UNIT CAPSULE PO SCH (10:35)
[2017-03-04] MEDS: AMIODARONE 200 MG TABLET PO SCH (10:35)
[2017-03-04] MEDS: AMLODIPINE 2.5 MG TABLET PO SCH (10:35)
[2017-03-04] MEDS: LISINOPRIL 2.5 MG TABLET PO SCH ×2 (10:35→21:15)
[2017-03-04] MEDS: CALCIUM 500 + VIT D 200 TABLET PO SCH ×2 (10:35→21:15)
[2017-03-04] MEDS: LEVOFLOXACIN PB 750 MG/150 ML BAG IV SCH (10:36)
[2017-03-04] MEDS: DOCUSATE SODIUM 100 MG CAPSULE PO SCH ×3 (10:41→21:15)
[2017-03-04] MEDS: ASCORBIC ACID 500 MG TABLET PO SCH (10:41)
[2017-03-04] MEDS ORDERED: PNEUMOCOCCAL 13 VACCINE 0.5ml INJECTION IM ONE (13:46)
[2017-03-04] MEDS ORDERED: INFLUENZA VAC High Dose 2017-18 (Fluzone HD*) (>=65yo) 0.5ml IM ONE (13:46)
[2017-03-04] MEDS ORDERED: INFLUENZA VAC. INJ. ADMIN CHARGE INJ ONE (14:06)
[2017-03-04] MEDS ORDERED: PNEUMOCOCCAL VAC ADMIN CHARGE INJ ONE (14:06)
--- NOTE | 2017-03-04 15:22 | Progress Note ---
<Anay Umaña V - Last Filed: 03/04/17 15:17> Subjective: Angela is seen this afternoon in follow-up. I'll resting in bed comfortably. She is alert, oriented and pleasant. States she had a difficult night sleeping was somewhat restless. She reports she then slept and this morning, which is unlike her. She has no complaints of pain or shortness of breath. Reports appetite is improving. Bowels are moving regularly. Objective Vital signs: Temperature 97.9 F 03/04/17 08:10 Pulse Rate 64 03/04/17 08:10 Respiratory Rate 16 03/04/17 08:10 Blood Pressure 124/60 03/04/17 08:10 Pulse Oximetry 96 03/04/17 08:10 Height/Weight/BMI: Height 1.6 m Weight 75.4 kg Body Mass Index 30.1 - Constitutional Present: no acute distress, well nourished, well developed - Routine HEENT Exam Eye: Present: EOMI ENT: Present: mucous membranes moist, dentition normal - Routine Respiratory Exam Present: CTA bilaterally. Absent: wheezes - Routine Cardiovascular Exam Present: RRR, S1, S2. Absent: murmur - Routine Abdominal Exam Present: soft, normoactive bowel sounds, non distended. Absent: tenderness - Routine Extremities Exam Present: normal capillary refill - Routine Skin Exam Present: dry, warm - Routine Neurological Exam Present: alert, oriented X3, CN II-XII intact - Routine Lymphatic Exam Lymphatic: Absent: adenopathy - Routine Psychiatric Exam Present: normal affect Results - Labs CBC & Chem 7: 03/04/17 04:18 03/04/17 04:18 Microbiology Results: Microbiology 02/27/17 11:41 Port/Picc Gram Stain - Final 02/27/17 11:41 Port/Picc Blood Culture - Preliminary Pantoea species 02/27/17 11:40 Peripheral/Iv Start Gram Stain - Final 02/27/17 11:40 Peripheral/Iv Start Blood Culture - Final No Growth After 5 Days 02/28/17 11:29 Port/Picc Blood Culture - Preliminary No Growth After 4 Days 02/28/17 11:39 Peripheral/Iv Start Blood Culture - Preliminary No Growth After 4 Days 03/01/17 04:00 Peripheral/Iv Start Blood Culture - Preliminary No Growth After 3 Days 03/01/17 04:02 Peripheral/Iv Start Blood Culture - Preliminary No Growth After 3 Days 02/28/17 16:50 Catheter Tip, Uvc Catheter Tip Culture - Final No Growth After 3 Days 02/28/17 16:50 Foreign Object Gram Stain - Final 02/28/17 16:50 Foreign Object Foreign Body Culture - Final No Growth After 3 Days 02/28/17 09:50 Decubitus, Foot Right Gram Stain - Final 02/28/17 09:50 Decubitus, Foot Right Deep Wound Culture - Final Staphylococcus aureus Yeast, not C. albicans Coag negative Staphylococcus Assessment and Plan Assessment and Plan: Impression Sepsis-1. Leukocytosis, 2. Known ulcer wound,-MRSA positive, 3. Bacteremia MRSA positive wound Culture Bacteremia- outpt blood culture from 02/26- Gram negative bacillus. Blood cultures from this admission positive as noted below Esophageal cancer-current treatment under the care of Dr. 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 Anticoagulation was stopped 08/2016 Hypernatremia 03/04-Plan Port removed 02/28 with cultures pending- pulmonary negative Blood culture from 02/27 did reveal Pantoea that is sensitive Levaquin and Wound cullutre indicating staff is sensitive to doxycycline With Dr. Fernandez who has been involved in patient's case. She recommends discontinuing the IV cefepime. Recommends continuing on oral Doxy and Levaquin through 03/10/17 for a 10 day course post- portacath removal. Continue encourage ambulation and strengthening continue to follow labs, white count is elevated at 14 Wound management per wound team. plan discussed with attending- Dr Casiano Hospital Course Summary Disclaimer: The visit summary below is not to be considered part of the above Progress Note. Hospital Course: 02/27/17- Admission Sepsis-1. Leukocytosis, 2. Known ulcer wound,-MRSA positive, 3. Bacteremia MRSA positive wound Culture Bacteremia- outpt blood culture from 02/26- Gram negative bacillus Esophageal cancer-current treatment under the care of Dr. Newman COPD-chronic oxygen use at 2 liters Chronic atrial fibrillation Hypertension GERD Hyperlipidemia Obstructive sleep apnea Chronic kidney disease History of anemia and GI bleed. Anticoagulation was stopped 08/2016 Plan Admit patient to inpatient status under care of Dr. Casiano for bacteremia, sepsis Upon admission the following laboratory studies are obtained CBC, CMP, venous lactate, pro calcitonin, blood culture 2 with one drawn out of Port-A-Cath. Obtain UA on admission. Patient empirically started on IV Levaquin and IV cefepime for treatment of sepsis and bacteremia. MRSA is to tip to vancomycin. Repeat blood cultures are pending at time of admission. Recheck venous lactate later this afternoon as per sepsis protocol Normal saline at 100 ML per hour for gentle hydration NT home oxygen at baseline 2 liters by nasal cannula. Will monitor Accu-Cheks routinely Awaiting nursing staff to reconcile home medications, these need to be reviewed and ordered. Patient did have an active GI bleed in August 2016, She has been off Anticoagulation since that time. Noted to be on Carafate for GI protection SCDs to bilateral lower extremity for DVT prophylaxis Check CBC and BMP tomorrow morning to follow blood counts, renal function and electrolytes In patient does request to be a do not resuscitate and this order is written Will discuss further orders and plan of care with attending, Dr. Casiano Time of discharge medical care will return to primary care provider, Dr. Dietz 02/28/[address] Lopez Given bacteremia 2 cultures, consult placed to Dr. Fernandez for further infectious disease recommendations. Will redraw cultures 1 out of Port-A-Cath, one peripheral draw. Consult placed to Dr. Lopez as Port-A-Cath will likely need to be removed. Outpatient foot wound culture + MRSA from 02/13/17. Wound team changing dressing every other day. Continue on triple antibiotic coverage including vancomycin, cefepime and Levaquin. Clinically Angela appears to be doing well without complaints. Vital signs remained stable and she is afebrile. NT need to follow routine labs. Some slightly up at 149, renal function improving. Creatinine today 1.4. Procalcitonin trending down. Case discussed with attending, Wound nurse, Surgical team. 03/01/17 Port removed yesterday. Cultures pending. Dr Fernandez consulted. Recommended stopping Vancomycin and started oral Doxycycline for MRSA coverage of wound. Checking on prior C/S results. Continue cefepime and levofloxacin for now - she hope to be able to streamline antibiotics in near future. Continue peripheral IV site-need to wait and be sure bacteremia has cleared before placing PICC. Nursing to ambulate pt in room TID to help strength. 03/02/17 Work on NIPPV with mask to vent for discharge; appreciate Dr. Bui's input Diamox 250 mg BID Continue lasix as ordered Start KCl 40 meq BID Repeat renal panel, CBC in AM for surveillance Discuss further re: dispo plans and safe living situation for her Nystatin powder to fungal rash Monitor strict I/Os and daily weights, continue orourke with diuresis Continue SCDs for DVT prophylaxis and encourage ambulation 03/03/17 Port removed 02/28 with cultures pending --> cultures reviewed with MIKE and coag neg staph thus far Dr Fernandez consulted 03/01. Recommended stopping Vancomycin and started oral Doxycycline for MRSA coverage of wound. Checking on prior C/S results. Continue cefepime and levofloxacin for now - she hopes to be able to streamline antibiotics in near future, will discuss again Saturday. --> repeat blood cultures from 03/01 with NGTD thus far Encouraged free water intake, Na improving slowly, will continue D5 @ 50 cc/ hour today and likely can stop tomorrow. Sugars stable - continue current glycemic control Respiratory status stable. Nursing will continue to ambulate pt in room TID to help strength PT/OT evaluation in AM for further recommendations Monitor lab with repeat renal panel, CBC in AM 03/04-Plan Port removed 02/28 with cultures pending- pulmonary negative Blood culture from 02/27 did reveal Pantoea that is sensitive Levaquin and Wound cullutre indicating staff is sensitive to doxycycline With Dr. Fernandez who has been involved in patient's case. She recommends discontinuing the IV cefepime. Recommends continuing on oral Doxy and Levaquin through 03/10/17 for a 10 day course post- portacath removal. Continue encourage ambulation and strengthening continue to follow labs, white count is elevated at 14 Wound management per wound team. plan discussed with attending- Dr Casiano <Vishnu Casiano - Last Filed: 03/04/17 18:36> Objective Vital signs: Temperature 97.1 F 03/04/17 15:19 Pulse Rate 68 03/04/17 15:19 Respiratory Rate 16 03/04/17 08:10 Blood Pressure 133/53 03/04/17 15:19 Pulse Oximetry 98 03/04/17 15:19 Height/Weight/BMI: Height 1.6 m Weight 75.4 kg Body Mass Index 30.1 Results - Labs CBC & Chem 7: 03/04/17 04:18 03/04/17 04:18 Microbiology Results: Microbiology 02/27/17 11:41 Port/Picc Gram Stain - Final 02/27/17 11:41 Port/Picc Blood Culture - Preliminary Pantoea species 02/27/17 11:40 Peripheral/Iv Start Gram Stain - Final 02/27/17 11:40 Peripheral/Iv Start Blood Culture - Final No Growth After 5 Days 02/28/17 11:29 Port/Picc Blood Culture - Preliminary No Growth After 4 Days 02/28/17 11:39 Peripheral/Iv Start Blood Culture - Preliminary No Growth After 4 Days 03/01/17 04:00 Peripheral/Iv Start Blood Culture - Preliminary No Growth After 3 Days 03/01/17 04:02 Peripheral/Iv Start Blood Culture - Preliminary No Growth After 3 Days 02/28/17 16:50 Catheter Tip, Uvc Catheter Tip Culture - Final No Growth After 3 Days 02/28/17 16:50 Foreign Object Gram Stain - Final 02/28/17 16:50 Foreign Object Foreign Body Culture - Final No Growth After 3 Days 02/28/17 09:50 Decubitus, Foot Right Gram Stain - Final 02/28/17 09:50 Decubitus, Foot Right Deep Wound Culture - Final Staphylococcus aureus Yeast, not C. albicans Coag negative Staphylococcus Assessment and Plan Assessment and Plan: Impression Sepsis-1. Leukocytosis, 2. Known ulcer wound,-MRSA positive, 3. Bacteremia MRSA positive wound Culture Bacteremia- outpatient blood culture from 02/26- Gram negative bacillus. Blood cultures from this admission positive as noted below Esophageal cancer-current treatment under the care of Dr. 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 Anticoagulation was stopped 08/2016 Hypernatremia (Not POA) Have independently interviewed and examined pt. Chart reviewed. Case discussed with my [employer]. Care plan developed with my supervision; agree with above. Doing okay this evening. No f/c. Appetite decreased, but working on oral intake. Does report she fills up soon. Breathing well. Strength fair. Lungs: decreased, no distress CV: regular AB: soft nt/nd MSE: awake alert appropriate Plan: continue with levofloxacin and doxycycline for antimicrobial coverage. Can stop Cefepime. Sodium trending down-will continue low flow IVF. Encourage activities. Will need to discuss with Dr Newman about PICC line vs portacath. Monitor lab. Hope for discharge to home in near future. Hospital Course Summary Disclaimer: The visit summary below is not to be considered part of the above Progress Note.
--- NOTE | 2017-03-04 15:50 | Wound Care Progress Note ---
Wound Management - Patient Status Premedicated Prior to Dressing Change: No - Wound Right Foot Wound Type: Diabetic Foot Ulcer Wound Present on Admission?: Yes Length: 1.2 Width: 2.3 Depth: 0.3 Wound Bed Appearance: Pale, Slough Maria Elena Wound Appearance: Taut Tunneling: No Undermining: No Drainage Description: Serous Drainage Amount: Small Drainage Odor: Slight Odor Dressing Status: Changed Primary Dressing: Alginate Secondary Dressing: Foam Dressing Dressing Change Date: 03/04/17 (n) Dressing Change Patient Tolerance: Tolerated Well (Pt know to clinic no acute changes in wound.) Microbiology: Microbiology 02/27/17 11:41 Port/Picc Gram Stain - Final 02/27/17 11:41 Port/Picc Blood Culture - Preliminary Pantoea species 02/27/17 11:40 Peripheral/Iv Start Gram Stain - Final 02/27/17 11:40 Peripheral/Iv Start Blood Culture - Final No Growth After 5 Days 02/28/17 11:29 Port/Picc Blood Culture - Preliminary No Growth After 4 Days 02/28/17 11:39 Peripheral/Iv Start Blood Culture - Preliminary No Growth After 4 Days 03/01/17 04:00 Peripheral/Iv Start Blood Culture - Preliminary No Growth After 3 Days 03/01/17 04:02 Peripheral/Iv Start Blood Culture - Preliminary No Growth After 3 Days 02/28/17 16:50 Catheter Tip, Uvc Catheter Tip Culture - Final No Growth After 3 Days 02/28/17 16:50 Foreign Object Gram Stain - Final 02/28/17 16:50 Foreign Object Foreign Body Culture - Final No Growth After 3 Days Right Ankle Wound Type: Diabetic Foot Ulcer (Left lateral malleolus) Wound Present on Admission?: Yes Length: 4 Width: 2.5 Depth: 0.2 Wound Bed Appearance: Pale, Slough Tunneling: No Undermining: No Drainage Description: Sanguineous Drainage Amount: Scant Drainage Odor: Slight Odor Dressing Status: Changed Primary Dressing: Alginate Secondary Dressing: Foam Dressing Dressing Change Date: 03/04/17 Dressing Change Time: 15:50 Dressing Change Patient Tolerance: Tolerated Well Microbiology: Microbiology 02/27/17 11:41 Port/Picc Gram Stain - Final 02/27/17 11:41 Port/Picc Blood Culture - Preliminary Pantoea species 02/27/17 11:40 Peripheral/Iv Start Gram Stain - Final 02/27/17 11:40 Peripheral/Iv Start Blood Culture - Final No Growth After 5 Days 02/28/17 11:29 Port/Picc Blood Culture - Preliminary No Growth After 4 Days 02/28/17 11:39 Peripheral/Iv Start Blood Culture - Preliminary No Growth After 4 Days 03/01/17 04:00 Peripheral/Iv Start Blood Culture - Preliminary No Growth After 3 Days 03/01/17 04:02 Peripheral/Iv Start Blood Culture - Preliminary No Growth After 3 Days 02/28/17 16:50 Catheter Tip, Uvc Catheter Tip Culture - Final No Growth After 3 Days 02/28/17 16:50 Foreign Object Gram Stain - Final 02/28/17 16:50 Foreign Object Foreign Body Culture - Final No Growth After 3 Days
[2017-03-04] MEDS: INSULIN DETEMIR 100unit/ml INJECTION SQ SCH (21:12)
[2017-03-04] MEDS: MIRTAZAPINE 15 MG TABLET PO SCH (21:15)
[2017-03-05] MEDS: D5W 1,000 ML IV SCH (04:14)
[2017-03-05] MEDS: NOZIN NASAL SWAB NAS SCH ×3 (06:24→23:00)
[2017-03-05] MEDS: SUCRALFATE 1 GM TABLET PO SCH ×4 (06:24→22:51)
[2017-03-05] MEDS: INSULIN ASPART 100unit/ml INJECTION SQ SCH ×3 (08:39→18:03)
[2017-03-05] MEDS: CARVEDILOL 12.5 MG TABLET PO SCH ×2 (08:39→18:03)
--- NOTE | 2017-03-05 09:18 | General Surgery Progress Note ---
Subjective Patient reports: feels better, tolerating a regular diet Narrative: Discussed chemo, her regime has been interrupted. She indicates she does want to resume chemo when appropriate. We will want to replace Power Port at some pint. - Vital Signs Last Vital Signs Temp 96.8 F 03/05/17 07:26 Pulse 64 03/05/17 07:26 Resp 16 03/05/17 07:26 BP 139/61 03/05/17 07:26 Pulse Ox 98 03/05/17 07:26 - Laboratory Result Diagrams: 03/05/17 05:03 03/05/17 05:03 - Microbiogy Microbiology 03/01/17 04:00 Peripheral/Iv Start Blood Culture - Preliminary No Growth After 4 Days 03/01/17 04:02 Peripheral/Iv Start Blood Culture - Preliminary No Growth After 4 Days 02/27/17 11:41 Port/Picc Gram Stain - Final 02/27/17 11:41 Port/Picc Blood Culture - Preliminary Pantoea species 02/27/17 11:40 Peripheral/Iv Start Gram Stain - Final 02/27/17 11:40 Peripheral/Iv Start Blood Culture - Final No Growth After 5 Days 02/28/17 11:29 Port/Picc Blood Culture - Preliminary No Growth After 4 Days 02/28/17 11:39 Peripheral/Iv Start Blood Culture - Preliminary No Growth After 4 Days - Normal Exam General: awake, alert, oriented, no acute distress Cardiovascular: regular rhythm, regular rate Respiratory: no labored breathing Abdominal: soft, non-tender, incision(s) (right upper chest CDI with sutures in tact, no erythema, fluctuance, ecchymosis) Psychiatric: normal affect Wound/Stoma/Drain Assessment - Wound Management Left Ankle Wound Type: Diabetic Foot Ulcer Wound Present on Admission?: Yes Wound Staging: Stage III Wound Length: 4 Wound Width: 2.5 Wound Depth: 0.2 Tunneling: No Wound Bed Appearance: Slough Wound Surrounding Tissue Appearance: Shiny, Taut Wound Drainage Description: Sanguineous Wound Drainage Amount: None Wound Drainage Odor: No Odor Wound Dressing Status: Changed Primary Dressing: Alginate Secondary Dressing: Foam Dressing Dressing Change Date: 02/28/17 Dressing Change Time: 09:30 Dressing Change Patient Tolerance: Tolerated Well Right Ankle Wound Type: Diabetic Foot Ulcer (Left lateral malleolus) Wound Present on Admission?: Yes Wound Staging: Stage III Wound Length: 4 Wound Width: 2.5 Wound Depth: 0.2 Tunneling: No Wound Bed Appearance: Pale, Slough Wound Surrounding Tissue Appearance: Shiny, Taut Wound Drainage Description: Sanguineous Wound Drainage Amount: Scant Wound Drainage Odor: Slight Odor Wound Dressing Status: Changed Primary Dressing: Alginate Secondary Dressing: Foam Dressing Dressing Change Date: 03/04/17 Dressing Change Time: 15:50 Dressing Change Patient Tolerance: Tolerated Well Right Foot Wound Type: Diabetic Foot Ulcer Wound Present on Admission?: Yes Wound Length: 1.2 Wound Width: 2.3 Wound Depth: 0.3 Tunneling: No Wound Bed Appearance: Pale, Slough Wound Surrounding Tissue Appearance: Taut Wound Drainage Description: Serous Wound Drainage Amount: Small Wound Drainage Odor: Slight Odor Wound Dressing Status: Changed Primary Dressing: Alginate Secondary Dressing: Foam Dressing Dressing Change Date: 03/04/17 (n) Dressing Change Patient Tolerance: Tolerated Well (Pt know to clinic no acute changes in wound.) Assessment and Plan (1) Encounter for care related to Port-a-Cath Current Visit: Yes Status: Acute Assessment and plan: Port removal site CDI, sutures in tact. No erythema or ecchymosis. She indicates she does want to resume chemo when appropriate. We will want to replace Power Port at some pint. (2) MRSA (methicillin resistant staph aureus) culture positive Current Visit: No Status: Acute Assessment and plan: WBC still 12.o (14.0 yesterday) Continue current ABX per hospitalist team. (3) Diabetic foot ulcers Current Visit: Yes Status: Chronic Assessment and plan: Continue specialty dressings Hospital Course Summary Disclaimer: The visit summary below is not to be considered part of the above Progress Note. Hospital Course: 02/27/17- Admission Sepsis-1. Leukocytosis, 2. Known ulcer wound,-MRSA positive, 3. Bacteremia MRSA positive wound Culture Bacteremia- outpt blood culture from 02/26- Gram negative bacillus Esophageal cancer-current treatment under the care of Dr. Newman COPD-chronic oxygen use at 2 liters Chronic atrial fibrillation Hypertension GERD Hyperlipidemia Obstructive sleep apnea Chronic kidney disease History of anemia and GI bleed. Anticoagulation was stopped 08/2016 Plan Admit patient to inpatient status under care of Dr. Casiano for bacteremia, sepsis Upon admission the following laboratory studies are obtained CBC, CMP, venous lactate, pro calcitonin, blood culture 2 with one drawn out of Port-A-Cath. Obtain UA on admission. Patient empirically started on IV Levaquin and IV cefepime for treatment of sepsis and bacteremia. MRSA is to tip to vancomycin. Repeat blood cultures are pending at time of admission. Recheck venous lactate later this afternoon as per sepsis protocol Normal saline at 100 ML per hour for gentle hydration NT home oxygen at baseline 2 liters by nasal cannula. Will monitor Accu-Cheks routinely Awaiting nursing staff to reconcile home medications, these need to be reviewed and ordered. Patient did have an active GI bleed in August 2016, She has been off Anticoagulation since that time. Noted to be on Carafate for GI protection SCDs to bilateral lower extremity for DVT prophylaxis Check CBC and BMP tomorrow morning to follow blood counts, renal function and electrolytes In patient does request to be a do not resuscitate and this order is written Will discuss further orders and plan of care with attending, Dr. Casiano Time of discharge medical care will return to primary care provider, Dr. Dietz 02/28/[address] Lopez Given bacteremia 2 cultures, consult placed to Dr. Fernandez for further infectious disease recommendations. Will redraw cultures 1 out of Port-A-Cath, one peripheral draw. Consult placed to Dr. Lopez as Port-A-Cath will likely need to be removed. Outpatient foot wound culture + MRSA from 02/13/17. Wound team changing dressing every other day. Continue on triple antibiotic coverage including vancomycin, cefepime and Levaquin. Clinically Angela appears to be doing well without complaints. Vital signs remained stable and she is afebrile. NT need to follow routine labs. Some slightly up at 149, renal function improving. Creatinine today 1.4. Procalcitonin trending down. Case discussed with attending, Wound nurse, Surgical team. 03/01/17 Port removed yesterday. Cultures pending. Dr Fernandez consulted. Recommended stopping Vancomycin and started oral Doxycycline for MRSA coverage of wound. Checking on prior C/S results. Continue cefepime and levofloxacin for now - she hope to be able to streamline antibiotics in near future. Continue peripheral IV site-need to wait and be sure bacteremia has cleared before placing PICC. Nursing to ambulate pt in room TID to help strength. 03/02/17 Work on NIPPV with mask to vent for discharge; appreciate Dr. Bui's input Diamox 250 mg BID Continue lasix as ordered Start KCl 40 meq BID Repeat renal panel, CBC in AM for surveillance Discuss further re: dispo plans and safe living situation for her Nystatin powder to fungal rash Monitor strict I/Os and daily weights, continue orourke with diuresis Continue SCDs for DVT prophylaxis and encourage ambulation 03/03/17 Port removed 02/28 with cultures pending --> cultures reviewed with MIKE and coag neg staph thus far Dr Fernandez consulted 03/01. Recommended stopping Vancomycin and started oral Doxycycline for MRSA coverage of wound. Checking on prior C/S results. Continue cefepime and levofloxacin for now - she hopes to be able to streamline antibiotics in near future, will discuss again Saturday. --> repeat blood cultures from 03/01 with NGTD thus far Encouraged free water intake, Na improving slowly, will continue D5 @ 50 cc/ hour today and likely can stop tomorrow. Sugars stable - continue current glycemic control Respiratory status stable. Nursing will continue to ambulate pt in room TID to help strength PT/OT evaluation in AM for further recommendations Monitor lab with repeat renal panel, CBC in AM 03/04-Plan Port removed 02/28 with cultures pending- pulmonary negative Blood culture from 02/27 did reveal Pantoea that is sensitive Levaquin and Wound cullutre indicating staff is sensitive to doxycycline With Dr. Fernandez who has been involved in patient's case. She recommends discontinuing the IV cefepime. Recommends continuing on oral Doxy and Levaquin through 03/10/17 for a 10 day course post- portacath removal. Continue encourage ambulation and strengthening continue to follow labs, white count is elevated at 14 Wound management per wound team. plan discussed with attending- Dr Casiano
[2017-03-05] MEDS: VITAMIN E 1,000 UNIT CAPSULE PO SCH (09:35)
[2017-03-05] MEDS: AMLODIPINE 2.5 MG TABLET PO SCH (09:36)
[2017-03-05] MEDS: ASCORBIC ACID 500 MG TABLET PO SCH (09:36)
[2017-03-05] MEDS: DOCUSATE SODIUM 100 MG CAPSULE PO SCH ×3 (09:36→22:53)
[2017-03-05] MEDS: BUMETANIDE 1 MG TABLET PO SCH ×2 (09:36→22:51)
[2017-03-05] MEDS: AMIODARONE 200 MG TABLET PO SCH (09:36)
[2017-03-05] MEDS: LISINOPRIL 2.5 MG TABLET PO SCH ×2 (09:36→22:52)
[2017-03-05] MEDS: CALCIUM 500 + VIT D 200 TABLET PO SCH ×2 (09:37→22:52)
[2017-03-05] MEDS: NEOMYCIN/POLYMYXIN/BACITRACIN OINT PACKET TP SCH (11:50)
--- NOTE | 2017-03-05 12:34 | Progress Note ---
Subjective: F/U: Bacteremia Doing okay today. No f/c. Strength still very decreased-moving in room, but not able to go very far. Appetite decreased; nothing sounds good. No nausea or ab pain. Stools variable. Breathing stable. No chest pain. Objective Vital signs: Temperature 96.8 F 03/05/17 07:26 Pulse Rate 64 03/05/17 07:26 Respiratory Rate 16 03/05/17 07:26 Blood Pressure 139/61 03/05/17 07:26 Pulse Oximetry 98 03/05/17 07:26 Rhythm: Normal Sinus Rhythm Height/Weight/BMI: Height 1.6 m Weight 75.7 kg Body Mass Index 30.1 - Constitutional Present: no acute distress, well nourished, well developed, cooperative - Routine HEENT Exam Head: Present: normocephalic, atraumatic Eye: Present: EOMI, PERRL ENT: Present: mucous membranes moist (No thrush ) - Routine Respiratory Exam Present: decreased breath sounds, diminished air movement. Absent: respiratory distress, rhonchi, wheezes, crackles - Routine Cardiovascular Exam Present: no murmur, irregular rhythm, irregularly irregular - Routine Abdominal Exam Present: soft, normoactive bowel sounds, non distended, non tender - Routine Extremities Exam Present: no edema. Absent: cyanosis, clubbing Comments: SCD in place - Routine Musculoskeletal Exam Musculoskeletal: Present: no clubbing or cyanosis. Absent: normal strength - Routine Skin Exam Present: dry, warm - Routine Neurological Exam Present: alert, oriented X3, CN II-XII intact, moving all extremities, vision grossly intact, hearing grossly intact. Absent: motor deficit, altered mental status - Routine Psychiatric Exam Present: normal affect, normal thought process, cooperative. Absent: anxious, agitated Results - Labs CBC & Chem 7: 03/05/17 05:03 03/05/17 05:03 Microbiology Results: Microbiology 02/28/17 11:29 Port/Picc Blood Culture - Final No Growth After 5 Days 02/28/17 11:39 Peripheral/Iv Start Blood Culture - Final No Growth After 5 Days 03/01/17 04:00 Peripheral/Iv Start Blood Culture - Preliminary No Growth After 4 Days 03/01/17 04:02 Peripheral/Iv Start Blood Culture - Preliminary No Growth After 4 Days 02/27/17 11:41 Port/Picc Gram Stain - Final 02/27/17 11:41 Port/Picc Blood Culture - Preliminary Pantoea species 02/27/17 11:40 Peripheral/Iv Start Gram Stain - Final 02/27/17 11:40 Peripheral/Iv Start Blood Culture - Final No Growth After 5 Days 02/28/17 16:50 Catheter Tip, Uvc Catheter Tip Culture - Final No Growth After 3 Days 02/28/17 16:50 Foreign Object Gram Stain - Final 02/28/17 16:50 Foreign Object Foreign Body Culture - Final No Growth After 3 Days 02/28/17 09:50 Decubitus, Foot Right Gram Stain - Final 02/28/17 09:50 Decubitus, Foot Right Deep Wound Culture - Final Staphylococcus aureus Yeast, not C. albicans Coag negative Staphylococcus Assessment and Plan DVT Prophylaxis: SCD's Resuscitation Status: Do Not Resuscitate Assessment and Plan: Impression Sepsis-1. Leukocytosis, 2. Known ulcer wound,-MRSA positive, 3. Bacteremia MRSA positive wound Culture Bacteremia- outpatient blood culture from 02/26- Gram negative bacillus. Blood cultures from this admission positive as noted below Esophageal cancer-current treatment under the care of Dr. 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 Anticoagulation was stopped 08/2016 Hypernatremia (Not POA) Plan Continue doxycycline and levofloxacin as per ID recommendation - will need to continue through 03/[address] Newman - alerted him that port removed. He would like to follow up with her next week, but feels we will need to wait on port placement and chemo. He will set up port placement in outpatient setting at the appropriate time. Can d/c IVF. Encourage intake of foods/liquids. With patient's decreased condition, will have CM check into skilled option to help improve functionality before patient returns home. Possible discharge tomorrow if doing well. Case discussed with CM. Times spent with patient care 25 minutes. Hospital Course Summary Disclaimer: The visit summary below is not to be considered part of the above Progress Note. Hospital Course: 02/27/17- Admission Sepsis-1. Leukocytosis, 2. Known ulcer wound,-MRSA positive, 3. Bacteremia MRSA positive wound Culture Bacteremia- outpt blood culture from 02/26- Gram negative bacillus Esophageal cancer-current treatment under the care of Dr. Newman COPD-chronic oxygen use at 2 liters Chronic atrial fibrillation Hypertension GERD Hyperlipidemia Obstructive sleep apnea Chronic kidney disease History of anemia and GI bleed. Anticoagulation was stopped 08/2016 Plan Admit patient to inpatient status under care of Dr. Casiano for bacteremia, sepsis Upon admission the following laboratory studies are obtained CBC, CMP, venous lactate, pro calcitonin, blood culture 2 with one drawn out of Port-A-Cath. Obtain UA on admission. Patient empirically started on IV Levaquin and IV cefepime for treatment of sepsis and bacteremia. MRSA is to tip to vancomycin. Repeat blood cultures are pending at time of admission. Recheck venous lactate later this afternoon as per sepsis protocol Normal saline at 100 ML per hour for gentle hydration NT home oxygen at baseline 2 liters by nasal cannula. Will monitor Accu-Cheks routinely Awaiting nursing staff to reconcile home medications, these need to be reviewed and ordered. Patient did have an active GI bleed in August 2016, She has been off Anticoagulation since that time. Noted to be on Carafate for GI protection SCDs to bilateral lower extremity for DVT prophylaxis Check CBC and BMP tomorrow morning to follow blood counts, renal function and electrolytes In patient does request to be a do not resuscitate and this order is written Time of discharge medical care will return to primary care provider, Dr. Dietz 02/28/[address] Lopez Given bacteremia 2 cultures, consult placed to Dr. Fernandez for further infectious disease recommendations. Will redraw cultures 1 out of Port-A-Cath, one peripheral draw. Consult placed to Dr. Lopez as Port-A-Cath will likely need to be removed. Outpatient foot wound culture + MRSA from 02/13/17. Wound team changing dressing every other day. Continue on triple antibiotic coverage including vancomycin, cefepime and Levaquin. Clinically Angela appears to be doing well without complaints. Vital signs remained stable and she is afebrile. NT need to follow routine labs. Some slightly up at 149, renal function improving. Creatinine today 1.4. Procalcitonin trending down. Case discussed with attending, Wound nurse, Surgical team. 03/01/17 Port removed yesterday. Cultures pending. Dr Fernandez consulted. Recommended stopping Vancomycin and started oral Doxycycline for MRSA coverage of wound. Checking on prior C/S results. Continue cefepime and levofloxacin for now - she hope to be able to streamline antibiotics in near future. Continue peripheral IV site-need to wait and be sure bacteremia has cleared before placing PICC. Nursing to ambulate pt in room TID to help strength. 03/02/17 Encouraged free water intake, will give a liter of D5 @ 50 cc/hour today Sugars stable - continue current glycemic control Respiratory status stable. Nursing to ambulate pt in room TID to help strength. Monitor lab with repeat renal panel, CBC in AM 03/03/17 Continue cefepime and levofloxacin for now - she hopes to be able to streamline antibiotics in near future, will discuss again Saturday. --> repeat blood cultures from 03/01 with NGTD thus far Encouraged free water intake, Na improving slowly, will continue D5 @ 50 cc/ hour today and likely can stop tomorrow. Sugars stable - continue current glycemic control Respiratory status stable. Nursing will continue to ambulate pt in room TID to help strength PT/OT evaluation in AM for further recommendations Monitor lab with repeat renal panel, CBC in AM 03/04/17 Port removed 02/28 with cultures pending- pulmonary negative Blood culture from 02/27 did reveal Pantoea that is sensitive Levaquin and Wound cullutre indicating staff is sensitive to doxycycline With Dr. Fernandez who has been involved in patient's case. She recommends discontinuing the IV cefepime. Recommends continuing on oral Doxy and Levaquin through 03/10/17 for a 10 day course post- portacath removal. Continue encourage ambulation and strengthening continue to follow labs, white count is elevated at 14 Wound management per wound team. 03/05/17 Continue doxycycline and levofloxacin as per ID recommendation - will need to continue through 03/[address] Newman - alerted him that port removed. He would like to follow up with her next week, but feels we will need to wait on port placement and chemo. He will set up port placement in outpatient setting at the appropriate time. Can d/c IVF. Encourage intake of foods/liquids. With patient's decreased condition, will have CM check into skilled option to help improve functionality before patient returns home. Possible discharge tomorrow if doing well.
[2017-03-05] MEDS: MIRTAZAPINE 15 MG TABLET PO SCH (22:53)
[2017-03-05] MEDS: INSULIN DETEMIR 100unit/ml INJECTION SQ SCH (22:53)
[2017-03-06 01:35] VITALS: O2SAT 99
[2017-03-06] MEDS: SUCRALFATE 1 GM TABLET PO SCH ×2 (06:40→11:48)
[2017-03-06] MEDS: NOZIN NASAL SWAB NAS SCH ×2 (06:40→15:09)
[2017-03-06] MEDS: INSULIN ASPART 100unit/ml INJECTION SQ SCH ×2 (08:18→11:48)
[2017-03-06] MEDS: CARVEDILOL 12.5 MG TABLET PO SCH (08:19)
[2017-03-06] MEDS: LISINOPRIL 2.5 MG TABLET PO SCH (09:53)
[2017-03-06] MEDS: LEVOFLOXACIN PB 750 MG/150 ML BAG IV SCH (09:53)
[2017-03-06] MEDS: DOCUSATE SODIUM 100 MG CAPSULE PO SCH ×2 (09:54→15:09)
[2017-03-06] MEDS: AMLODIPINE 2.5 MG TABLET PO SCH (09:54)
[2017-03-06] MEDS: BUMETANIDE 1 MG TABLET PO SCH (09:54)
[2017-03-06] MEDS: CALCIUM 500 + VIT D 200 TABLET PO SCH (09:54)
[2017-03-06] MEDS: NEOMYCIN/POLYMYXIN/BACITRACIN OINT PACKET TP SCH (09:54)
[2017-03-06] MEDS: ASCORBIC ACID 500 MG TABLET PO SCH (09:54)
[2017-03-06] MEDS: AMIODARONE 200 MG TABLET PO SCH (09:54)
[2017-03-06] MEDS: VITAMIN E 1,000 UNIT CAPSULE PO SCH (09:54)
[2017-03-06] MEDS: SALINE FLUSH 10ml SYRINGE IV PRN (09:55)
[2017-03-06] MEDS: NS FLUSH BAG 500ml IV PRN (09:56)
--- NOTE | 2017-03-06 11:15 | Progress Note ---
<Anay Umaña V - Last Filed: 03/06/17 11:16> Subjective: Angela is seen today and reports she is feeling good. She is on 1.5 liters of oxygen without distress. Denies pain or shortness of breath. She remains afebrile and Vitals are stable. Appetite good a s she is eating 100% of meals. Objective Vital signs: Temperature 96.1 F L 03/06/17 07:53 Pulse Rate 77 03/06/17 07:53 Respiratory Rate 20 03/06/17 07:53 Blood Pressure 151/65 H 03/06/17 07:53 Pulse Oximetry 99 03/06/17 07:53 Rhythm: Normal Sinus Rhythm Height/Weight/BMI: Height 1.6 m Weight 75.7 kg Body Mass Index 30.1 - Constitutional Present: no acute distress, well nourished, well developed - Routine HEENT Exam Eye: Present: EOMI ENT: Present: mucous membranes moist, dentition normal - Routine Respiratory Exam Present: CTA bilaterally. Absent: wheezes - Routine Cardiovascular Exam Present: RRR, S1, S2. Absent: murmur - Routine Abdominal Exam Present: soft, normoactive bowel sounds, non distended. Absent: tenderness - Routine Extremities Exam Present: normal capillary refill - Routine Skin Exam Present: dry, warm - Routine Neurological Exam Present: alert, oriented X3, CN II-XII intact - Routine Lymphatic Exam Lymphatic: Absent: adenopathy - Routine Psychiatric Exam Present: normal affect Results - Labs CBC & Chem 7: 03/06/17 04:32 03/06/17 04:32 Microbiology Results: Microbiology 02/27/17 11:41 Port/Picc Gram Stain - Final 02/27/17 11:41 Port/Picc Blood Culture - Final Pantoea species 03/01/17 04:00 Peripheral/Iv Start Blood Culture - Final No Growth After 5 Days 03/01/17 04:02 Peripheral/Iv Start Blood Culture - Final No Growth After 5 Days 02/28/17 11:29 Port/Picc Blood Culture - Final No Growth After 5 Days 02/28/17 11:39 Peripheral/Iv Start Blood Culture - Final No Growth After 5 Days 02/27/17 11:40 Peripheral/Iv Start Gram Stain - Final 02/27/17 11:40 Peripheral/Iv Start Blood Culture - Final No Growth After 5 Days 02/28/17 16:50 Catheter Tip, Uvc Catheter Tip Culture - Final No Growth After 3 Days 02/28/17 16:50 Foreign Object Gram Stain - Final 02/28/17 16:50 Foreign Object Foreign Body Culture - Final No Growth After 3 Days 02/28/17 09:50 Decubitus, Foot Right Gram Stain - Final 02/28/17 09:50 Decubitus, Foot Right Deep Wound Culture - Final Staphylococcus aureus Yeast, not C. albicans Coag negative Staphylococcus Assessment and Plan Assessment and Plan: Impression Sepsis-1. Leukocytosis, 2. Known ulcer wound,-MRSA positive, 3. Bacteremia MRSA positive wound Culture Bacteremia- outpatient blood culture from 02/26- Gram negative bacillus. Blood cultures from this admission positive as noted below Esophageal cancer-current treatment under the care of Dr. 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 Anticoagulation was stopped 08/2016 Hypernatremia (Not POA) 03/06-Plan Continue doxycycline and levofloxacin as per ID recommendation - will need to continue through 03/10 Patient wound like to have a screen for IRU as she recognizes that she needs to get stronger. Will need to see Dr Newman next week for follow up. No assisted IV line at this time. Will be placed in the outpatient setting Overall stable and doing well. Hospital Course Summary Disclaimer: The visit summary below is not to be considered part of the above Progress Note. Hospital Course: 02/27/17- Admission Sepsis-1. Leukocytosis, 2. Known ulcer wound,-MRSA positive, 3. Bacteremia MRSA positive wound Culture Bacteremia- outpt blood culture from 02/26- Gram negative bacillus Esophageal cancer-current treatment under the care of Dr. Newman COPD-chronic oxygen use at 2 liters Chronic atrial fibrillation Hypertension GERD Hyperlipidemia Obstructive sleep apnea Chronic kidney disease History of anemia and GI bleed. Anticoagulation was stopped 08/2016 Plan Admit patient to inpatient status under care of Dr. Casiano for bacteremia, sepsis Upon admission the following laboratory studies are obtained CBC, CMP, venous lactate, pro calcitonin, blood culture 2 with one drawn out of Port-A-Cath. Obtain UA on admission. Patient empirically started on IV Levaquin and IV cefepime for treatment of sepsis and bacteremia. MRSA is to tip to vancomycin. Repeat blood cultures are pending at time of admission. Recheck venous lactate later this afternoon as per sepsis protocol Normal saline at 100 ML per hour for gentle hydration NT home oxygen at baseline 2 liters by nasal cannula. Will monitor Accu-Cheks routinely Awaiting nursing staff to reconcile home medications, these need to be reviewed and ordered. Patient did have an active GI bleed in August 2016, She has been off Anticoagulation since that time. Noted to be on Carafate for GI protection SCDs to bilateral lower extremity for DVT prophylaxis Check CBC and BMP tomorrow morning to follow blood counts, renal function and electrolytes In patient does request to be a do not resuscitate and this order is written Time of discharge medical care will return to primary care provider, Dr. Dietz 02/28/[address] Lopez Given bacteremia 2 cultures, consult placed to Dr. Fernandez for further infectious disease recommendations. Will redraw cultures 1 out of Port-A-Cath, one peripheral draw. Consult placed to Dr. Lopez as Port-A-Cath will likely need to be removed. Outpatient foot wound culture + MRSA from 02/13/17. Wound team changing dressing every other day. Continue on triple antibiotic coverage including vancomycin, cefepime and Levaquin. Clinically Angela appears to be doing well without complaints. Vital signs remained stable and she is afebrile. NT need to follow routine labs. Some slightly up at 149, renal function improving. Creatinine today 1.4. Procalcitonin trending down. Case discussed with attending, Wound nurse, Surgical team. 03/01/17 Port removed yesterday. Cultures pending. Dr Fernandez consulted. Recommended stopping Vancomycin and started oral Doxycycline for MRSA coverage of wound. Checking on prior C/S results. Continue cefepime and levofloxacin for now - she hope to be able to streamline antibiotics in near future. Continue peripheral IV site-need to wait and be sure bacteremia has cleared before placing PICC. Nursing to ambulate pt in room TID to help strength. 03/02/17 Encouraged free water intake, will give a liter of D5 @ 50 cc/hour today Sugars stable - continue current glycemic control Respiratory status stable. Nursing to ambulate pt in room TID to help strength. Monitor lab with repeat renal panel, CBC in AM 03/03/17 Continue cefepime and levofloxacin for now - she hopes to be able to streamline antibiotics in near future, will discuss again Saturday. --> repeat blood cultures from 03/01 with NGTD thus far Encouraged free water intake, Na improving slowly, will continue D5 @ 50 cc/ hour today and likely can stop tomorrow. Sugars stable - continue current glycemic control Respiratory status stable. Nursing will continue to ambulate pt in room TID to help strength PT/OT evaluation in AM for further recommendations Monitor lab with repeat renal panel, CBC in AM 03/04/17 Port removed 02/28 with cultures pending- pulmonary negative Blood culture from 02/27 did reveal Pantoea that is sensitive Levaquin and Wound cullutre indicating staff is sensitive to doxycycline With Dr. Fernandez who has been involved in patient's case. She recommends discontinuing the IV cefepime. Recommends continuing on oral Doxy and Levaquin through 03/10/17 for a 10 day course post- portacath removal. Continue encourage ambulation and strengthening continue to follow labs, white count is elevated at 14 Wound management per wound team. 03/05/17 Continue doxycycline and levofloxacin as per ID recommendation - will need to continue through 03/[address] Newman - alerted him that port removed. He would like to follow up with her next week, but feels we will need to wait on port placement and chemo. He will set up port placement in outpatient setting at the appropriate time. Can d/c IVF. Encourage intake of foods/liquids. With patient's decreased condition, will have CM check into skilled option to help improve functionality before patient returns home. Possible discharge tomorrow if doing well. 03/06-Plan Continue doxycycline and levofloxacin as per ID recommendation - will need to continue through 03/10 Patient wound like to have a screen for IRU as she recognizes that she needs to get stronger. Will need to see Dr Newman next week for follow up. No assisted IV line at this time. Will be placed in the outpatient setting Overall stable and doing well. <Vishnu Casiano - Last Filed: 03/06/17 14:58> Objective Vital signs: Temperature 95.6 F L 03/06/17 14:44 Pulse Rate 67 03/06/17 14:44 Respiratory Rate 18 03/06/17 14:44 Blood Pressure 130/60 03/06/17 14:44 Pulse Oximetry 99 03/06/17 14:44 Height/Weight/BMI: Height 1.6 m Weight 76.3 kg Body Mass Index 30.1 Results - Labs CBC & Chem 7: 03/06/17 04:32 03/06/17 04:32 Microbiology Results: Microbiology 02/27/17 11:41 Port/Picc Gram Stain - Final 02/27/17 11:41 Port/Picc Blood Culture - Final Pantoea species 03/01/17 04:00 Peripheral/Iv Start Blood Culture - Final No Growth After 5 Days 03/01/17 04:02 Peripheral/Iv Start Blood Culture - Final No Growth After 5 Days 02/28/17 11:29 Port/Picc Blood Culture - Final No Growth After 5 Days 02/28/17 11:39 Peripheral/Iv Start Blood Culture - Final No Growth After 5 Days 02/27/17 11:40 Peripheral/Iv Start Gram Stain - Final 02/27/17 11:40 Peripheral/Iv Start Blood Culture - Final No Growth After 5 Days 02/28/17 16:50 Catheter Tip, Uvc Catheter Tip Culture - Final No Growth After 3 Days 02/28/17 16:50 Foreign Object Gram Stain - Final 02/28/17 16:50 Foreign Object Foreign Body Culture - Final No Growth After 3 Days 02/28/17 09:50 Decubitus, Foot Right Gram Stain - Final 02/28/17 09:50 Decubitus, Foot Right Deep Wound Culture - Final Staphylococcus aureus Yeast, not C. albicans Coag negative Staphylococcus Assessment and Plan Assessment and Plan: Impression Sepsis-1. Leukocytosis, 2. Known ulcer wound,-MRSA positive, 3. Bacteremia MRSA positive wound Culture Bacteremia- outpatient blood culture from 02/26- Gram negative bacillus. Blood cultures from this admission positive as noted below Esophageal cancer-current treatment under the care of Dr. 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 Anticoagulation was stopped 08/2016 Hypernatremia (Not POA) Have independently interviewed and examined pt. Chart reviewed. Case discussed with CM and my [employer]. Care plan developed with my supervision; agree with above. Doing well today. No f/c. Breathing stable. Eating okay. Not having ab pain or nausea. Strength improving slowly. Lungs: decreased CV: irregularly irregular MSE: awake alert appropriate Plan: Patient accepted to IRU to help maximize her strength and functional status prior to returning to independently living. Do feel this is important, as while her strength has been increasing during acute she is still very frail and at risk for problems if she return home. Will continue with antibiotics, can change levofloxacin to oral. Hold on PICC/Port until seen my Dr Newman in outpatient setting. Medically stable for discharge to IRU. See orders for details. Hospital Course Summary Disclaimer: The visit summary below is not to be considered part of the above Progress Note.
--- NOTE | 2017-03-06 14:14 | Discharge Instructions ---
Discharge Plan - Med Rec/Dispo Prescriptions: New Levofloxacin [Levaquin] 750 mg PO Q48H #2 tablet Milk of Magnesia [Mom] 30 ml PO DAILY PRN udc PRN Reason: Constipation Tramadol [Ultram] 25 mg PO Q6H PRN tablet PRN Reason: Pain Doxycycline [Vibramycin] 100 mg PO BIDWM 4 Days tablet Continue Ascorbic Acid 500 mg PO DAILY #0 Carvedilol 12.5 mg PO BID #0 guaiFENesin [Mucinex] 600 mg PO BID PRN #0 PRN Reason: PRN ORDERS Acetaminophen [Acetaminophen 8 Hour] 650 mg PO DAILY PRN #0 PRN Reason: PAIN Amiodarone [Pacerone] 200 mg PO DAILY #30 tab Guaifenesin/Dextromethorphan [Robitussin Cough-Chest Dm Liq] 237 ml PO Q4HR Vitamin E 1,000 unit PO DAILY Potassium Chloride [K-Dur] 1 tab PO DAILY Mupirocin Cream [Bactroban 2% Cream] 1 applicatio TOP TID Mirtazapine [Remeron] 15 mg PO HS Lisinopril [Prinivil] 2.5 mg PO DAILY Bumetanide 0.5 mg PO BID diphenhydrAMINE HCl [Benadryl] 25 mg PO Q6H PRN #0 PRN Reason: ITCHING Lisinopril 2.5 mg PO HS #0 Amlodipine Besylate 2.5 mg PO DAILY #0 Calcium Carbonate/Vitamin D3 [Calcium 600-Vit D3 200 Tablet] 1 tab PO BID #0 Docusate Sodium [Colace] 100 mg PO TID #0 Insulin Aspart [NovoLOG] 4 unit SQ WB #0 Insulin Aspart [NovoLOG] 6 unit SQ WL #0 Insulin Detemir [Levemir] 20 unit SQ HS #0 Ipratropium/Albuterol Sulfate [Iprat-Albut 0.5-3(2.5) mg/3 ml] 1 vial AEROSOL QID PRN #0 PRN Reason: PRN ORDERS LORazepam [Lorazepam] 0.5 - 1 mg PO TID PRN #0 PRN Reason: ANXIETY Polyethylene Glycol 3350 [Miralax] 17 g PO DAILY PRN #0 PRN Reason: CONSTIPATION Bisacodyl 10 mg RECTALLY DAILY PRN #0 PRN Reason: CONSTIPATION Insulin Aspart [NovoLOG] 4 unit SQ WS #0 Sucralfate [Carafate] 1 g PO ACHS #56 tab [place]-3 Fatty Acids [Fish Oil Concentrate] 1,000 mg PO TID Albuterol Neb (0.083%) [Proventil Neb (0.083%)] 2.5 mg AEROSOL Q6HR Discontinued Nystatin Cream [Mycostatin] 15 gm TP TID PRN PRN Reason: Rash No Action Hydrocodone/Acetaminophen ([place] 5-325 Tablet) 1 - 2 tab PO Q4HPRN Discharge Instructions/Outpatient Orders: Final Provider Discharge Instructions Location: Determined By Patient - Disposition 62 [facility]
--- NOTE | 2017-03-06 14:27 | Discharge Summary ---
<Anay Umaña V - Last Filed: 03/06/17 14:24> Discharge Information Date of admission: 02/27/17 10:45 Anticipated date of discharge: 03/06/17 Attending Physician: Vishnu Casiano MD Primary care physician: Rachel Dietz DO Consults: 02/27/17 11:35 Wound Vein Clinic Consult [CONS] Routine 02/27/17 11:52 Wound Vein Clinic Consult [CONS] Routine 02/28/17 09:54 Physician Consult [CONS] Routine Consulting Provider: Nandini Fernandez Reason For Exam: bacteremia, MRSA + wound Ordering Provider has Notified [employer] Driver: Yes 02/28/17 11:13 Physician Consult [CONS] Routine Consulting Provider: Phil Lopez Reason For Exam: Port-A-Cath removal, bacteremia Ordering Provider has Notified [employer] Driver: No 03/06/17 IRU Screening [Inpatient Rehab Screening] [CONS] Routine - Procedures Procedures: 02/28/17-removal of Zevj-K-Rgty-Dr. Lopez - Laboratory Labs: 03/06/17 04:32 03/06/17 04:32 - Microbiology Microbiology 02/27/17 11:41 Port/Picc Gram Stain - Final 02/27/17 11:41 Port/Picc Blood Culture - Final Pantoea species 03/01/17 04:00 Peripheral/Iv Start Blood Culture - Final No Growth After 5 Days 03/01/17 04:02 Peripheral/Iv Start Blood Culture - Final No Growth After 5 Days 02/28/17 11:29 Port/Picc Blood Culture - Final No Growth After 5 Days 02/28/17 11:39 Peripheral/Iv Start Blood Culture - Final No Growth After 5 Days 02/27/17 11:40 Peripheral/Iv Start Gram Stain - Final 02/27/17 11:40 Peripheral/Iv Start Blood Culture - Final No Growth After 5 Days 02/28/17 16:50 Catheter Tip, Uvc Catheter Tip Culture - Final No Growth After 3 Days 02/28/17 16:50 Foreign Object Gram Stain - Final 02/28/17 16:50 Foreign Object Foreign Body Culture - Final No Growth After 3 Days 02/28/17 09:50 Decubitus, Foot Right Gram Stain - Final 02/28/17 09:50 Decubitus, Foot Right Deep Wound Culture - Final Staphylococcus aureus Yeast, not C. albicans Coag negative Staphylococcus - Radiology Radiology: 02/27/17- Chest Xray- Impression: Left lower lobe airspace consolidation could be due to atelectasis, pneumonia or aspiration. - Pathology None History of Present Illness HPI: Patient is a 81 year old female who is well known to the hospitalist services from previous admissions. She is currently been under the care of Dr. Newman for chemotherapy treatment of esophageal cancer. She presented to [facility] on 02/11 for evaluation of lower extremity wounds. At that time she is instructed to go to the emergency room for acute evaluation, however, declined. She was discharged on clindamycin and followed up at the wound care center on 02/13 and 02/20. She was found to have bilateral lower extremity diabetic foot ulcers and has had dressing changes every 3 days. Wound culture taken on 02/13-is positive for MRSA, sensitive to vancomycin, Doxy, gentamicin and linezolid. On 02/21 ,she was changed to Augmentin for further antimicrobial coverage. Yesterday she presented to Dr. Newman's office for routine labs and chemotherapy. At that time Blood cultures were obtained, which did grow preliminary gram-negative bacillus. CBC was done yesterday revealed leukocytosis with a white count of 13, hemoglobin 11.2, hematocrit 34.3, 10% bands. Given these findings, Dr. Newman's office. Did contact patient today and have her directly admitted under the hospitalist services to Dr. Casiano for further inpatient evaluation and treatment. Angela is seen today on arrival to [facility] and is accompanied by her two sisters. She is alert, oriented and pleasant. She states that she has missed the last 3 rounds of chemotherapy related to the lower extremity infection. Denies having any fever/chills. No nausea or vomiting. Did review instructions and she does wish to be a do not resuscitate. Objective Vital signs: Temperature 96.1 F L 03/06/17 07:53 Pulse Rate 77 03/06/17 07:53 Respiratory Rate 20 03/06/17 07:53 Blood Pressure 151/65 H 03/06/17 07:53 Pulse Oximetry 99 03/06/17 07:53 Rhythm: Normal Sinus Rhythm Height/Weight/BMI: Height 1.6 m Weight 75.7 kg Body Mass Index 30.1 - Constitutional Present: no acute distress, well nourished, well developed - Routine HEENT Exam Eye: Present: EOMI ENT: Present: mucous membranes moist, dentition normal - Routine Respiratory Exam Present: CTA bilaterally. Absent: wheezes - Routine Cardiovascular Exam Present: RRR, S1, S2. Absent: murmur - Routine Abdominal Exam Present: soft, normoactive bowel sounds, non distended. Absent: tenderness - Routine Extremities Exam Present: normal capillary refill - Routine Skin Exam Present: dry, warm - Routine Neurological Exam Present: alert, oriented X3, CN II-XII intact - Routine Lymphatic Exam Lymphatic: Absent: adenopathy - Routine Psychiatric Exam Present: normal affect Hospital Course This is a general summary of the patient's hospital course. For more details refer to the complete medical record. Hospital course: 02/27/17- Admission Sepsis-1. Leukocytosis, 2. Known ulcer wound,-MRSA positive, 3. Bacteremia MRSA positive wound Culture Bacteremia- outpt blood culture from 02/26- Gram negative bacillus Esophageal cancer-current treatment under the care of Dr. Newman COPD-chronic oxygen use at 2 liters Chronic atrial fibrillation Hypertension GERD Hyperlipidemia Obstructive sleep apnea Chronic kidney disease History of anemia and GI bleed. Anticoagulation was stopped 08/2016 Plan Admit patient to inpatient status under care of Dr. Casiano for bacteremia, sepsis Upon admission the following laboratory studies are obtained CBC, CMP, venous lactate, pro calcitonin, blood culture 2 with one drawn out of Port-A-Cath. Obtain UA on admission. Patient empirically started on IV Levaquin and IV cefepime for treatment of sepsis and bacteremia. MRSA is to tip to vancomycin. Repeat blood cultures are pending at time of admission. Recheck venous lactate later this afternoon as per sepsis protocol Normal saline at 100 ML per hour for gentle hydration NT home oxygen at baseline 2 liters by nasal cannula. Will monitor Accu-Cheks routinely Awaiting nursing staff to reconcile home medications, these need to be reviewed and ordered. Patient did have an active GI bleed in August 2016, She has been off Anticoagulation since that time. Noted to be on Carafate for GI protection SCDs to bilateral lower extremity for DVT prophylaxis Check CBC and BMP tomorrow morning to follow blood counts, renal function and electrolytes In patient does request to be a do not resuscitate and this order is written Time of discharge medical care will return to primary care provider, Dr. Dietz 02/28/[address] Lopez Given bacteremia 2 cultures, consult placed to Dr. Fernandez for further infectious disease recommendations. Will redraw cultures 1 out of Port-A-Cath, one peripheral draw. Consult placed to Dr. Lopez as Port-A-Cath will likely need to be removed. Outpatient foot wound culture + MRSA from 02/13/17. Wound team changing dressing every other day. Continue on triple antibiotic coverage including vancomycin, cefepime and Levaquin. Clinically nAgela appears to be doing well without complaints. Vital signs remained stable and she is afebrile. NT need to follow routine labs. Some slightly up at 149, renal function improving. Creatinine today 1.4. Procalcitonin trending down. Case discussed with attending, Wound nurse, Surgical team. 03/01/17 Port removed yesterday. Cultures pending. Dr Fernandez consulted. Recommended stopping Vancomycin and started oral Doxycycline for MRSA coverage of wound. Checking on prior C/S results. Continue cefepime and levofloxacin for now - she hope to be able to streamline antibiotics in near future. Continue peripheral IV site-need to wait and be sure bacteremia has cleared before placing PICC. Nursing to ambulate pt in room TID to help strength. 03/02/17 Encouraged free water intake, will give a liter of D5 @ 50 cc/hour today Sugars stable - continue current glycemic control Respiratory status stable. Nursing to ambulate pt in room TID to help strength. Monitor lab with repeat renal panel, CBC in AM 03/03/17 Continue cefepime and levofloxacin for now - she hopes to be able to streamline antibiotics in near future, will discuss again Saturday. --> repeat blood cultures from 03/01 with NGTD thus far Encouraged free water intake, Na improving slowly, will continue D5 @ 50 cc/ hour today and likely can stop tomorrow. Sugars stable - continue current glycemic control Respiratory status stable. Nursing will continue to ambulate pt in room TID to help strength PT/OT evaluation in AM for further recommendations Monitor lab with repeat renal panel, CBC in AM 03/04/17 Port removed 02/28 with cultures pending- pulmonary negative Blood culture from 02/27 did reveal Pantoea that is sensitive Levaquin and Wound cullutre indicating staff is sensitive to doxycycline With Dr. Fernandez who has been involved in patient's case. She recommends discontinuing the IV cefepime. Recommends continuing on oral Doxy and Levaquin through 03/10/17 for a 10 day course post- portacath removal. Continue encourage ambulation and strengthening continue to follow labs, white count is elevated at 14 Wound management per wound team. 03/05/17 Continue doxycycline and levofloxacin as per ID recommendation - will need to continue through 03/[address] Newman - alerted him that port removed. He would like to follow up with her next week, but feels we will need to wait on port placement and chemo. He will set up port placement in outpatient setting at the appropriate time. Can d/c IVF. Encourage intake of foods/liquids. With patient's decreased condition, will have CM check into skilled option to help improve functionality before patient returns home. Possible discharge tomorrow if doing well. 03/06-Discharge Angela is seen and evaluated today. She is pleased to be accepted to the IRU for ongoing strengthening given her weakness and debility related to acute illness. She will continue to need medical evaluation. Given hypernatremia and leukocytosis. She will continue on doxycycline and Levaquin through 03/10/[address] Fernandez infectious disease. We will switch her to oral Levaquin every 48 hours. Next dose on 03/08/17 followed by the final dose on 03/10/17 The hospitalist service will continue to follow patient and medical management for existing comorbidities during her stay in the IRU unit. At time of discharge her medical care will return to her primary care provider, Dr. Diezt and her oncologist, Dr. Newman. Time spent with patient: discharge greater than 30 minutes DVT Prophylaxis: SCD's Discharge Plan - Med Rec/Dispo Prescriptions: New Levofloxacin [Levaquin] 750 mg PO Q48H #2 tablet Milk of Magnesia [Mom] 30 ml PO DAILY PRN udc PRN Reason: Constipation Tramadol [Ultram] 25 mg PO Q6H PRN tablet PRN Reason: Pain Doxycycline [Vibramycin] 100 mg PO BIDWM 4 Days tablet Continue Ascorbic Acid 500 mg PO DAILY #0 Carvedilol 12.5 mg PO BID #0 guaiFENesin [Mucinex] 600 mg PO BID PRN #0 PRN Reason: PRN ORDERS Acetaminophen [Acetaminophen 8 Hour] 650 mg PO DAILY PRN #0 PRN Reason: PAIN Amiodarone [Pacerone] 200 mg PO DAILY #30 tab Guaifenesin/Dextromethorphan [Robitussin Cough-Chest Dm Liq] 237 ml PO Q4HR Vitamin E 1,000 unit PO DAILY Potassium Chloride [K-Dur] 1 tab PO DAILY Mupirocin Cream [Bactroban 2% Cream] 1 applicatio TOP TID Mirtazapine [Remeron] 15 mg PO HS Lisinopril [Prinivil] 2.5 mg PO DAILY Bumetanide 0.5 mg PO BID diphenhydrAMINE HCl [Benadryl] 25 mg PO Q6H PRN #0 PRN Reason: ITCHING Lisinopril 2.5 mg PO HS #0 Amlodipine Besylate 2.5 mg PO DAILY #0 Calcium Carbonate/Vitamin D3 [Calcium 600-Vit D3 200 Tablet] 1 tab PO BID #0 Docusate Sodium [Colace] 100 mg PO TID #0 Insulin Aspart [NovoLOG] 4 unit SQ WB #0 Insulin Aspart [NovoLOG] 6 unit SQ WL #0 Insulin Detemir [Levemir] 20 unit SQ HS #0 Ipratropium/Albuterol Sulfate [Iprat-Albut 0.5-3(2.5) mg/3 ml] 1 vial AEROSOL QID PRN #0 PRN Reason: PRN ORDERS LORazepam [Lorazepam] 0.5 - 1 mg PO TID PRN #0 PRN Reason: ANXIETY Polyethylene Glycol 3350 [Miralax] 17 g PO DAILY PRN #0 PRN Reason: CONSTIPATION Bisacodyl 10 mg RECTALLY DAILY PRN #0 PRN Reason: CONSTIPATION Insulin Aspart [NovoLOG] 4 unit SQ WS #0 Sucralfate [Carafate] 1 g PO ACHS #56 tab [place]-3 Fatty Acids [Fish Oil Concentrate] 1,000 mg PO TID Albuterol Neb (0.083%) [Proventil Neb (0.083%)] 2.5 mg AEROSOL Q6HR Discontinued Nystatin Cream [Mycostatin] 15 gm TP TID PRN PRN Reason: Rash No Action Hydrocodone/Acetaminophen ([place] 5-325 Tablet) 1 - 2 tab PO Q4HPRN Discharge Instructions/Outpatient Orders: Final Provider Discharge Instructions Location: Determined By Patient <Vishnu Casiano - Last Filed: 03/06/17 15:00> Discharge Information Date of admission: 02/27/17 10:45 Attending Physician: Vishnu Casiano MD Primary care physician: Rachel Dietz DO Consults: 02/27/17 11:35 Wound Vein Clinic Consult [CONS] Routine 02/27/17 11:52 Wound Vein Clinic Consult [CONS] Routine 02/28/17 09:54 Physician Consult [CONS] Routine Consulting Provider: Nandini Fernandez Reason For Exam: bacteremia, MRSA + wound Ordering Provider has Notified Front Load Trash Truck Driver: Yes 02/28/17 11:13 Physician Consult [CONS] Routine Consulting Provider: Phil Lopez Reason For Exam: Port-A-Cath removal, bacteremia Ordering Provider has Notified Front Load Trash Truck Driver: No 03/06/17 IRU Screening [Inpatient Rehab Screening] [CONS] Routine - Laboratory Labs: 03/06/17 04:32 03/06/17 04:32 - Microbiology Microbiology 02/27/17 11:41 Port/Picc Gram Stain - Final 02/27/17 11:41 Port/Picc Blood Culture - Final Pantoea species 03/01/17 04:00 Peripheral/Iv Start Blood Culture - Final No Growth After 5 Days 03/01/17 04:02 Peripheral/Iv Start Blood Culture - Final No Growth After 5 Days 02/28/17 11:29 Port/Picc Blood Culture - Final No Growth After 5 Days 02/28/17 11:39 Peripheral/Iv Start Blood Culture - Final No Growth After 5 Days 02/27/17 11:40 Peripheral/Iv Start Gram Stain - Final 02/27/17 11:40 Peripheral/Iv Start Blood Culture - Final No Growth After 5 Days 02/28/17 16:50 Catheter Tip, Uvc Catheter Tip Culture - Final No Growth After 3 Days 02/28/17 16:50 Foreign Object Gram Stain - Final 02/28/17 16:50 Foreign Object Foreign Body Culture - Final No Growth After 3 Days 02/28/17 09:50 Decubitus, Foot Right Gram Stain - Final 02/28/17 09:50 Decubitus, Foot Right Deep Wound Culture - Final Staphylococcus aureus Yeast, not C. albicans Coag negative Staphylococcus Objective Vital signs: Temperature 95.6 F L 03/06/17 14:44 Pulse Rate 67 03/06/17 14:44 Respiratory Rate 18 03/06/17 14:44 Blood Pressure 130/60 03/06/17 14:44 Pulse Oximetry 99 03/06/17 14:44 Height/Weight/BMI: Height 1.6 m Weight 76.3 kg Body Mass Index 30.1 Hospital Course This is a general summary of the patient's hospital course. For more details refer to the complete medical record. Discharge Plan - Med Rec/Dispo - Attestation Attestation Narrative: 03/06/17 14:59 I have independently interviewed and examined patient prior to discharge. See my progress note for details. Reviewed above and concur. Medically stable for discharge to IRU to maximize her strength and functional status. See orders for details.
[2017-03-06 14:46] VITALS: BP 130/60; PULSE 67; RESP 18; TEMP 95.6
== END 2017-03-06 15:25 | DRG 854 ==
LOC: MED
PROVIDERS: ADMIT Hospitalist; ATTEND Hospitalist

== ENCOUNTER 2017-03-06 16:08 | Inpatient (IN) ==
[2017-03-06] MEDS ORDERED: DiphenhydrAMINE 25 MG CAPSULE PO PRN (16:16)
[2017-03-06] MEDS ORDERED: TRAMADOL 50 MG TABLET PO PRN (16:16)
[2017-03-06] MEDS ORDERED: GUAIFENESIN LA 600 MG TABLET PO PRN (16:16)
[2017-03-06] MEDS ORDERED: BISACODYL 10 MG SUPPOSITORY RECTALLY PRN (16:16)
[2017-03-06] MEDS ORDERED: POLYETHYL GLYCOL 3350 17gm PACKET PO PRN (16:16)
[2017-03-06] MEDS ORDERED: GUAIFENESIN/DM 5ml ORAL LIQUID PO PRN (16:16)
[2017-03-06] MEDS ORDERED: ALBUTEROL/IPRATROPIUM 2.5mg-0.5mg/3ml NEB AEROSOL PRN (16:16)
[2017-03-06 16:23] VITALS: BMI 30.1
[2017-03-06] MEDS: CARVEDILOL 12.5 MG TABLET PO SCH (18:05)
[2017-03-06] MEDS: SUCRALFATE 1 GM TABLET PO SCH ×2 (18:09→21:19)
[2017-03-06] MEDS: INSULIN ASPART 100unit/ml INJECTION SQ SCH (18:10)
--- NOTE | 2017-03-06 20:04 | IRU History & Physical Report ---
[facility] IRU Date: 958 Chief complaint: I have ulcers on my legs HPI: Ms. Ball is a very nice 81-year-old white female who was admitted to acute care on February 27, 2017 with sepsis. Referring physician is Dr. Vishnu Casiano. Her primary care physician is Dr. Rachel Dietz. History is obtained predominantly from the patient and secondarily from records. She had developed blisters on her feet she states. She does have severe diabetic neuropathy and has had previous wound infections and has lost 2 toes on each foot in the past reportedly due to infection. She developed a blister which turned out to be an open wound on the distal right medial foot at the base of the great toe. She had another wound on the left lateral malleolus. She went to [facility] for evaluation. Apparently at that location it was recommended that she report to the emergency department. She declined. She was started on clindamycin. Subsequently, she was seen at the wound clinic on February 13 and February. On the cultures were obtained of the wound growing MRSA. On February 21 she was changed to Augmentin. The patient does have history of esophageal cancer initially diagnosed in 2007. A port was placed at that time. Her oncologist is Dr. Newman. Her surgeon is Dr. Lopez who had done the EGD back in 2007 demonstrating esophageal cancer. At that time she underwent chemotherapy for several rounds and the cancer was felt to be in remission as I understand it. Recently, she developed worsening problems swallowing pills and for that reason another EGD was apparently done demonstrating recurrence of her esophageal malignancy. (I am not totally certain an EGD was done as she refers to it as "x- rays" being done.) She was again started on chemotherapy. However the chemotherapy has been held for the past 3 weeks due to the wound infections on her lower extremities. At this time she is admitted to acute care on February 27, [address] Newman. She had had shaking chills for the past 1 week prior to admission she states. It is unclear if she had documented fever. The day prior to admission on February 26, 2017 blood cultures were done. Her white count at that time was 13,000 with 10% bands. She was referred to the hospital for admission and was admitted on February 27. She was felt to be septic on the basis of elevated white count and positive blood culture (GNR from 02-26-17) and with presumed source being the wounds on her lower extremities versus the Port-A-Cath. She was started on intravenous Levaquin and cefepime and I believe vancomycin as well and was given IV fluids for resuscitation. Pro- calcitonin level had been monitored. It was markedly elevated at 19 initially with a follow-up at 17 and subsequently 3.9, indicating improvement in her septic picture. She has now been seen by Dr. Afua Fernandez, infectious disease. Dr. Fernandez postulated that she was septic from either the wounds or the Port-A-Cath. A blood culture was positive for a gram-negative cande. On February 27 a peripheral blood culture was negative and a culture obtained through the Port-A- Cath grew "pantoea" species. Dr. Fernandez recommended doxycycline and Levaquin with antibiotics to be given through March 10, 2017. She has been afebrile throughout her hospital stay. Her WBC is trending downward but is still elevated. On February 28, 2017 culture obtained through the port was negative and peripherally was negative as well. The Port-A-Cath was removed by Dr. Lopez on February 28, 2017. The catheter tip cultured negative. Dr. Afua Fernandez had noted that the patient does have history of osteomyelitis involving the right ankle with previous cultures positive for MRSA and Pseudomonas (remote history). A blood culture obtained as an outpatient on February 26, 2017 was positive for a gram-negative cande. In addition, the patient has a history of insulin-dependent diabetes mellitus. She monitors her blood sugars twice daily and reports that her average fasting sugar is about 90. The average sugar in the evening is 150. She does not know what her A1c is running. She has had a weight loss from 180 pounds a year ago down to 166 pounds recently. She states that she still has difficulty swallowing at times although does not require a mechanical soft diet. Her appetite has been good she states. She denies any nausea or vomiting. It is unclear to me if the esophageal cancer has metastasized. At home, she lives in her own home. Her sister lives in the basement. The patient does not have to climb any stairs except for one step to get into the house. She does use a 4 wheeled walker at home. She has fallen on at least one occasion in the last several months. The sister does the shopping and the cooking for her. At home, the patient does use oxygen at 2 L/m 24 hours daily. At home she was modified independent functioning for eating, bathing, toileting, bed/chair/ wheelchair transfers, toilet transfers and walking with a rolling walker. She was independent with grooming, upper and lower body dressing. Here in the hospital she requires minimal assistance for grooming, bathing, toileting, transfers and walking. She requires moderate assistance for lower body dressing at the present time. it is anticipated the patient will be able to resume modified independent functioning in all ADLs and can return to her home environment at the conclusion of IRU stay. The patient is at risk for recurrence or worsening of her infection on the basis of suppressed immunity. Her reduced immunity is on the basis of chronic diabetes mellitus, recent chemotherapy for esophageal cancer as well as the presence of esophageal cancer itself. Medical issues identified which will be monitored and managed while in the inpatient rehabilitation unit are as follows: 1. Infected wounds (right distal medial foot, left lateral malleolus) with recent sepsis. These are at risk for worsening and causing recurrent sepsis, worsening osteomyelitis or cellulitis. 2. Diabetes mellitus, insulin controlled. She is at risk for hypoglycemic episodes as well as hyperglycemia in view of the use of levofloxacin as well as the infection itself and variable oral intake related to the infection. 3. COPD with chronic hypoxemia. She is at risk for worsening respiratory status in view of being more sedentary from the recent infection and sepsis. The patient will be seen by the following disciplines: 1. Physical therapy and occupational therapy to address functional deficits as noted above. 2. 24 hour rehabilitation nursing to monitor her blood sugars, oxygen saturation, blood pressures and wound progression. 3. Dietitian to ensure adequate nutrition. 4. Medical oversight to monitor worsening infection, diabetes mellitus and to ensure that she can tolerate therapy in view of the recent infection. [facility] Patient Stated Medical History Hearing Loss Yes: hearing aids Cardiac Arrhythmia Yes: afib Congestive Heart Failure Yes Hypertension Yes Chronic Obstructive Pulmonary Yes Disease (COPD) Sleep Apnea Yes Diabetes Mellitus Type 1 Yes Diabetes Mellitus Type 2 Yes Constipation Yes Gastroesophageal Reflux Yes Disease Hx Incontinence Yes Hx Urinary Tract Infection Yes Cellulitis Yes: foot MRSA Yes Sepsis Yes Other Yes: removal of PAC Rt chest Clinic Medical History (Last Updated 02/11/17 @ 18:53 by Zoe C Rodriguez, RMA) Diabetes (Chronic Medical) Heart disease (Chronic Medical) Neuropathy (Chronic Medical) Surgical History: Bilateral cataract extraction-2006. Appendectomy. Hysterectomy-2003. Cystoscopy 2009. Cardiac catheter-2008. EGD and diagnosis of esophageal cancer-2007. Port-A-Cath placement-2007. Bilateral toes amputations Family History: Patient's parents are . She does have 2 sisters. One sister does have Parkinson's disease. - Social History Smoking status: Former smoker Packs per day: 0.8 (she smoked less than 1 pack daily from ages 25 through 65.) Substance use type: does not use Alcohol intake: never Alcohol intake frequency: does not drink Housing: house Household members: family Current occupational status: retired Does patient use chewing tobacco?: No Current residence: Apartment/Private Home Social history: The patient has been twice. 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 Her is . Review of Systems - Constitutional Constitutional: Present: chills, fatigue, weight loss. Absent: fever(s), headache(s) - EENMT Eyes: Absent: blurry vision, change in vision Ears: Present: other (Hearing loss, bad in one ear.) Balance: Absent: vertigo Nose: Absent: change in smell Mouth/Throat: Present: changes in swallowing. Absent: sore throat, sores, ulcers, painful swallowing - Cardiovascular Cardiovascular: Absent: chest pain, palpitations, syncope, dyspnea on exertion, orthopnea, edema Rhythm: Present: regular rhythm (today she seems to be in a regular rhythm) Vascular: Absent: intermittent claudication, pedal edema - Respiratory Respiratory: Absent: cough, dyspnea, hemoptysis, dyspnea on exertion, wheezing - Gastrointestinal Gastrointestinal: Present: dysphagia. Absent: abdominal pain, change in bowel habits, change in stool character, coffee ground emesis, constipation, diarrhea , dyspepsia, early satiety, nausea - Musculoskeletal Musculoskeletal: Present: arthralgias (reports osteoarthritis with a lot of pain in both knees.), joint swelling. Absent: abnormal gait, deformity - Integumentary/Breasts Integumentary: Present: wounds (please see HPI). Absent: alopecia - Neurological Neurological: Present: frequent falls, sensory deficit. Absent: abnormal gait, abnormal movements, abnormal speech, headache(s), lack of coordination, memory loss - Psychiatric Psychiatric: Absent: abnormal sleep pattern, anhedonia, anxiety, depression, difficulty concentrating - Endocrine Endocrine: Absent: cold intolerance, excessive sweating, flushing, heat intolerance - Hematologic/Lymphatic Hematologic/Lymphatic: Absent: easy bleeding Medications Home Medications Medication Instructions Recorded Confirmed Type Ascorbic Acid 500 mg PO DAILY #0 08/03/15 02/27/17 History diphenhydrAMINE HCl [Benadryl] 25 mg PO Q6H PRN #0 08/03/15 02/27/17 History Lisinopril 2.5 mg PO HS #0 07/20/16 02/27/17 History Amlodipine Besylate 2.5 mg PO DAILY #0 07/25/16 02/27/17 History Calcium Carbonate/Vitamin D3 1 tab PO BID #0 07/25/16 02/27/17 History [Calcium 600-Vit D3 200 Tablet] Carvedilol 12.5 mg PO BID #0 07/25/16 02/27/17 History Docusate Sodium [Colace] 100 mg PO TID #0 07/25/16 02/27/17 History Insulin Aspart [NovoLOG] 4 unit SQ WB #0 07/25/16 02/27/17 History Insulin Aspart [NovoLOG] 6 unit SQ WL #0 07/25/16 02/27/17 History Insulin Detemir [Levemir] 20 unit SQ HS #0 07/25/16 02/27/17 History Ipratropium/Albuterol Sulfate 1 vial AEROSOL QID PRN #0 07/25/16 02/27/17 History [Iprat-Albut 0.5-3(2.5) mg/3 ml] LORazepam [Lorazepam] 0.5 - 1 mg PO TID PRN #0 07/25/16 02/27/17 History Polyethylene Glycol 3350 [Miralax] 17 g PO DAILY PRN #0 07/25/16 02/27/17 History guaiFENesin [Mucinex] 600 mg PO BID PRN #0 07/25/16 02/27/17 History Acetaminophen [Acetaminophen 8 650 mg PO DAILY PRN #0 08/17/16 02/27/17 History Hour] Bisacodyl 10 mg RECTALLY DAILY PRN #0 08/17/16 02/27/17 History Insulin Aspart [NovoLOG] 4 unit SQ WS #0 08/17/16 02/27/17 History Albuterol Neb (0.083%) [Proventil 2.5 mg AEROSOL Q6HR 02/27/17 02/27/17 History Neb (0.083%)] Bumetanide 0.5 mg PO BID 02/27/17 02/27/17 History Guaifenesin/Dextromethorphan 237 ml PO Q4HR 02/27/17 02/27/17 History [Robitussin Cough-Chest Dm Liq] Hydrocodone/Acetaminophen ([place] 1 - 2 tab PO Q4HPRN 02/27/17 02/27/17 History 5-325 Tablet) Lisinopril [Prinivil] 2.5 mg PO DAILY 02/27/17 02/27/17 History Mirtazapine [Remeron] 15 mg PO HS 02/27/17 02/27/17 History Mupirocin Cream [Bactroban 2% 1 applicatio TOP TID 02/27/17 02/27/17 History Cream] [place]-3 Fatty Acids [Fish Oil 1,000 mg PO TID 02/27/17 02/27/17 History Concentrate] Potassium Chloride [K-Dur] 1 tab PO DAILY 02/27/17 02/27/17 History Vitamin E 1,000 unit PO DAILY 02/27/17 02/27/17 History Allergies Allergy/AdvReac Type Severity Reaction Status Date / Time sulfamethoxazole Allergy Unknown hives Verified 02/11/17 18:50 trimethoprim Allergy Unknown HIVES Verified 02/11/17 18:50 niacin AdvReac Intermediate HIVES Verified 02/27/17 10:59 Results IRU - Labs Labs: I have reviewed all labs from recent acute stay as well as progress notes, history and physical, consultation and imaging reports and cultures. Exam Vital Signs: Temperature 97.9 F 03/06/17 16:16 Pulse Rate 68 03/06/17 16:16 Respiratory Rate 16 03/06/17 16:16 Blood Pressure 150/65 H 03/06/17 16:16 Pulse Oximetry 100 03/06/17 16:16 Height/Weight/BMI: Height 1.6 m Weight 77.2 kg Body Mass Index 30.1 - Constitutional Present: no acute distress, average body habitus. Absent: agitated, somnolent - Routine HEENT Exam Head: Present: normocephalic, atraumatic, cushingoid faces. Absent: abrasion, laceration, hematoma Eye: Present: EOMI. Absent: conjunctival icterus, scleral injection, conjunctivae pink ENT: Present: mucous membranes moist - Routine Neck Exam Present: supple, full ROM. Absent: lymphadenopathy, thyromegaly, tenderness, swelling - Routine Chest/Breast/Axilla Exam Chest wall: Present: mass. Absent: tenderness - Routine Respiratory Exam Present: decreased breath sounds. Absent: accessory muscle use, dyspnea, prolonged expiratory phase, rales, respiratory distress, rhonchi, stridor, wheezes, crackles - Routine Cardiovascular Exam Present: RRR, S1, S2, no murmur. Absent: S3, S4 - Routine Abdominal Exam Present: soft, normoactive bowel sounds, non distended. Absent: tenderness, rebound, guarding, firm, rigid, organomegaly, mass - Routine Extremities Exam Comments: Extremities are abnormal. Has changes consistent with osteoarthritis in her finger joints. There are venous stasis changes with dermatitis around the ankles bilaterally. I do not feel pulses in the feet nor ankles. She has 2 missing toes from each foot as well as toe deformities otherwise. Some evidence of pressure lesion over the dorsal aspect of curved toes particularly in the right foot. - Routine Skin Exam Present: lesions (vvenous stasis changes noted around ankles of both lower extremities), wounds (has a punched out wound base of right toe medial aspect. Second wound left lateral malleolus.). Absent: intact - Routine Neurological Exam Present: alert, oriented X3, CN II-XII intact, sensory deficit As I was taking the history, the patient tended to be confused about the specific sequence of events or timing on things over the last several weeks. That being said, she seems to be fairly sharp otherwise. - Routine Psychiatric Exam Present: normal affect, cooperative, good insight, good judgment. Absent: normal thought process, depressed, anxious Sepsis Assessment - Evaluation SIRS Criteria: none IRU A/P (1) Diabetic foot ulcers Qualifiers: Diabetic foot ulcer location: other Diabetes mellitus type: type 1 Laterality: left Non-pressure ulcer stage: with fat layer exposed Qualified Code(s): E10.621 - Type 1 diabetes mellitus with foot ulcer; L97.522 - Non- pressure chronic ulcer of other part of left foot with fat layer exposed Current visit: No Status: Chronic The patient has a recent history of sepsis with positive blood cultures with a gram-negative cande. Source of this is not certain but is likely the foot ulcers. She is at risk for worsening of infection and will require wound monitoring as well as monitoring of her white count and continuance of her antibiotics. 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 She is at risk for hypoglycemia or hyperglycemia related to variable oral intake in view of the recent infection as well as in view of the levofloxacin. (3) MRSA (methicillin resistant staph aureus) culture positive Current visit: No Status: Acute the patient has history of MRSA infection involving the foot wound. She is on doxycycline in this regard. DVT Prophylaxis: SCD's (it is noted that she has had a previous GI bleed and for that reason is not on chronic anticoagulants.) Resuscitation Status: Do Not Resuscitate (I personally confirmed with the patient that she does not wish resuscitative efforts in the event of an arrest. ) - Course Hospital Course: Rai Chowdary MD: - Interventions to Obtain Goals PT Treatment Plan: Balance/Proprioception, Functional Activities, Gait Training , Patient/Family Education OT Treatment Plan: ADL (Basic Care) Goals Progress/Modifications: An intensive individualized program will be developed for the patient to improve her functional status and allow her to return to her previous level of functioning at a modified independent level. In addition, her blood sugars will be monitored, her white count will be monitored as well as her temperature to ensure no recurrence or worsening of her infection. Wounds will be cared for and monitored by the wound therapy nurse and 24 hour rehabilitation nursing.
--- NOTE | 2017-03-06 20:44 | IRU 24Hr Post Admit Eval ---
24 Hr Post Admission Physical - Relevant Changes Relevant Changes: No Reviewed: I have reviewed the patient's information and concur with the finding and results of the pre-admission screen. Certification: I certify the patient for rehabilitation. - Patient Condition (1) Diabetic foot ulcers Status: Chronic Qualifiers: Diabetic foot ulcer location: other Diabetes mellitus type: type 1 Laterality: left Non-pressure ulcer stage: with fat layer exposed Qualified Code(s): E10.621 - Type 1 diabetes mellitus with foot ulcer; L97.522 - Non- pressure chronic ulcer of other part of left foot with fat layer exposed Code(s): E11.621 - Type 2 diabetes mellitus with foot ulcer; L97.509 - Non- pressure chronic ulcer of other part of unspecified foot with unspecified severity Classification: Present on IRF Admission, IRF Tx That Should Address Diagnosis, Diagnosis Requiring Medical Follow Up Additional Information: She is on antibiotics for the diabetic foot ulcers as well as the recent bacteremia/sepsis episode. 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 Status: Acute Code(s): E10.51 - Type 1 diabetes mellitus with diabetic peripheral angiopathy without gangrene; I70.209 - Unspecified atherosclerosis of [place] arteries of extremities, unspecified extremity Classification: Present on IRF Admission, IRF Tx That Should Address Diagnosis, Diagnosis Requiring Medical Follow Up (3) MRSA (methicillin resistant staph aureus) culture positive Status: Acute Code(s): Z22.322 - Carrier or suspected carrier of Methicillin resistant Staphylococcus aureus Classification: Present on IRF Admission, IRF Tx That Should Address Diagnosis, Diagnosis Requiring Medical Follow Up - Prior Functional Status Lives With: Sibiling Residence Type: Apartment/Private Home Assitive Devices: Four Wheeled Walker Prior Functional Status: Indep. at home or school, Used assistive device, Depend. w/ IADL - Current Functional Status Current Level of Function: Patient is currently modified independent for eating but minimal assistance for grooming, toileting, bed/chair/wheelchair transfers, toilet transfers, walking. She is moderate assistance for bathing and lower body dressing. She is ambulating with a rolling walker. Failed Alternative Therapy: Arrived from Acute Care Patient Requirements: The patient requires oversight by rehabilitation physician to manage their rehabilitation treatment plan and multidisciplinary approach to care that can only be provided in an IRF and requires a multidisciplinary approach to care, provided by professional PTs, OTs, STs, dieticians, RTs, rehabilitation nurses and is not available in lesser levels of care. Limitations Req: ADL Impairment Physical Therapy Minutes: 90 Occupational Therapy Minutes: 90 Therapy: The patient is to receive therapy at least 5 days a week. - Complications/Comorbidities Impact on Functional Outcomes: Her bilateral lower extremity wounds and wound infection as well as recent episode of sepsis will impact her functional outcome. Barriers to Discharge: Endurance, Medical Limitation - Plan to Avoid Complications Plan to Avoid Complications: The patient cannot receive this care in a lesser intensive setting such as Nursing Home or Outpatient Therapy due to the patient requiring the following : Need for close 24-hour rehabilitation nursing monitoring of blood sugars, oxygen saturations and close medical supervision of her wounds and recent episode of sepsis..
[2017-03-06] MEDS: INSULIN DETEMIR 100unit/ml INJECTION SQ SCH (21:18)
[2017-03-06] MEDS: BUMETANIDE 1 MG TABLET PO SCH (21:19)
[2017-03-06] MEDS: LISINOPRIL 2.5 MG TABLET PO SCH (21:19)
[2017-03-06] MEDS: MIRTAZAPINE 15 MG TABLET PO SCH (21:19)
[2017-03-06] MEDS: DOCUSATE SODIUM 100 MG CAPSULE PO SCH (21:20)
[2017-03-06] MEDS: ACETAMINOPHEN 500 MG TABLET PO PRN (21:20)
[2017-03-06] MEDS: CALCIUM 500 + VIT D 200 TABLET PO SCH (21:20)
[2017-03-07] MEDS: SUCRALFATE 1 GM TABLET PO SCH ×4 (06:56→21:42)
[2017-03-07] MEDS: VITAMIN E 1,000 UNIT CAPSULE PO SCH (08:35)
[2017-03-07] MEDS: BUMETANIDE 1 MG TABLET PO SCH (08:36)
[2017-03-07] MEDS: INSULIN ASPART 100unit/ml INJECTION SQ SCH ×3 (08:36→17:41)
[2017-03-07] MEDS: DOCUSATE SODIUM 100 MG CAPSULE PO SCH ×3 (08:36→21:41)
[2017-03-07] MEDS: CALCIUM 500 + VIT D 200 TABLET PO SCH ×2 (08:37→21:43)
[2017-03-07] MEDS: ASCORBIC ACID 500 MG TABLET PO SCH (08:37)
[2017-03-07] MEDS: LISINOPRIL 2.5 MG TABLET PO SCH ×2 (08:37→21:42)
[2017-03-07] MEDS: CARVEDILOL 12.5 MG TABLET PO SCH ×2 (08:38→17:40)
[2017-03-07] MEDS: AMLODIPINE 2.5 MG TABLET PO SCH (08:38)
[2017-03-07] MEDS: AMIODARONE 200 MG TABLET PO SCH (08:38)
--- NOTE | 2017-03-07 08:56 | Consult Note ---
<Anay Umaña V - Last Filed: 03/07/17 08:45> Consult Information - Data of Consult Consult date: 03/07/17 Requesting Physician: Rai Chowdary MD Primary Care Provider: Rachel Dietz DO Family Provider: Rachel Dietz DO - Consult Narrative Reason for consult: medical management infection, chronic disease management History of present illness: Angela is seen this morning for inital medical consultation. He is well known to the hospitalist services for her recent acute admission with sepsis, bacteremia , and foot wound. Angela was admitted on 02/27/17 under the hospitalist services. She was found to have bacteremia and had her Port-A-Cath removed by Dr. Lopez on 02/28/17. She was followed by infectious disease with Dr. Fernandez while on antibiotic coverage. Port-A-Cath blood culture was positive for Pantoea species sensitive to Levaquin, and right foot wound culture positive for staph aureus, sensitive to doxycycline. Repeat blood cultures remain negative after 5 days. Although she tolerated treatment well. She does continue to be generally weak and debilitated secondary to the acute infection. He shouldn't did reside independently with her sisters prior to admission. She has been under the care of Dr. Newman for treatment of esophageal cancer. Given the acute debility. She was screened and accepted to the inpatient rehabilitation unit under the care of Dr. Chowdary for ongoing therapy and strengthening Angela is eating breakfast in the day room on her chronic 2 liters of oxygen. She reports she slept good and is without any complaints of pain or shortness of breath. Morning labs reviewed, white count is normal at 10.4, hemoglobin stable at 10.2. Sodium has been insistently elevated, today is 148, potassium 4.8, BUN 38, creatinine 1.3. Fasting sugar this morning was 104. Angela remains afebrile. Vital signs stable. PFSH Patient Stated Medical History Hearing Loss Yes: hearing aids Cardiac Arrhythmia Yes: afib Congestive Heart Failure Yes Hypertension Yes Chronic Obstructive Pulmonary Yes Disease (COPD) Sleep Apnea Yes Diabetes Mellitus Type 1 Yes Diabetes Mellitus Type 2 Yes Constipation Yes Gastroesophageal Reflux Yes Disease Hx Incontinence Yes Hx Urinary Tract Infection Yes Cellulitis Yes: foot MRSA Yes Sepsis Yes Other Yes: removal of PAC Rt chest Clinic Medical History (Last Updated 02/11/17 @ 18:53 by oZe Rodriguez LESIAEula) Diabetes (Chronic Medical) Heart disease (Chronic Medical) Neuropathy (Chronic Medical) Surgical History: Bilateral cataract extraction-2006. Appendectomy. Hysterectomy-2003. Cystoscopy 2008. Cardiac catheter-2008. EGD and diagnosis of esophageal cancer-2007. Port-A-Cath placement-2007. Bilateral toes amputations Family History: Father-heart disease with AL Mother-heart disease, asthma Brother-Asthma Sister-Parkinson's, TIA - Social History Smoking status: Current every day smoker Substance use type: does not use Alcohol intake frequency: does not drink Current occupational status: retired Current residence: Apartment/Private Home (with sister) Social history: PCP Dr. Rachel Dietz Oncologist Dr. Newman Review of Systems All systems PM: 10-point ROS was reviewed, no additional remarkable complaints except - Constitutional Constitutional: Present: fatigue - Neurological Neurological: Present: weakness. Absent: focal weakness Medications Home Medications Medication Instructions Recorded Confirmed Type Ascorbic Acid 500 mg PO DAILY #0 08/03/15 03/07/17 History diphenhydrAMINE HCl [Benadryl] 25 mg PO Q6H PRN #0 08/03/15 03/07/17 History Lisinopril 2.5 mg PO HS #0 07/20/16 03/07/17 History Amlodipine Besylate 2.5 mg PO DAILY #0 07/25/16 03/07/17 History Calcium Carbonate/Vitamin D3 1 tab PO BID #0 07/25/16 03/07/17 History [Calcium 600-Vit D3 200 Tablet] Carvedilol 12.5 mg PO BID #0 07/25/16 03/07/17 History Docusate Sodium [Colace] 100 mg PO TID #0 07/25/16 03/07/17 History Insulin Aspart [NovoLOG] 4 unit SQ WB #0 07/25/16 03/07/17 History Insulin Aspart [NovoLOG] 6 unit SQ WL #0 07/25/16 03/07/17 History Insulin Detemir [Levemir] 20 unit SQ HS #0 07/25/16 03/07/17 History Ipratropium/Albuterol Sulfate 1 vial AEROSOL QID PRN #0 07/25/16 03/07/17 History [Iprat-Albut 0.5-3(2.5) mg/3 ml] LORazepam [Lorazepam] 0.5 - 1 mg PO TID PRN #0 07/25/16 03/07/17 History Polyethylene Glycol 3350 [Miralax] 17 g PO DAILY PRN #0 07/25/16 03/07/17 History guaiFENesin [Mucinex] 600 mg PO BID PRN #0 07/25/16 03/07/17 History Acetaminophen [Acetaminophen 8 650 mg PO DAILY PRN #0 08/17/16 03/07/17 History Hour] Bisacodyl 10 mg RECTALLY DAILY PRN #0 08/17/16 03/07/17 History Insulin Aspart [NovoLOG] 4 unit SQ WS #0 08/17/16 03/07/17 History Albuterol Neb (0.083%) [Proventil 2.5 mg AEROSOL Q6HR 02/27/17 03/07/17 History Neb (0.083%)] Bumetanide 0.5 mg PO BID 02/27/17 03/07/17 History Guaifenesin/Dextromethorphan 5 ml PO Q4HR 02/27/17 03/07/17 History [Robitussin Cough-Chest Dm Liq] Hydrocodone/Acetaminophen ([place] 1 - 2 tab PO Q4HPRN 02/27/17 03/07/17 History 5-325 Tablet) Lisinopril [Prinivil] 2.5 mg PO DAILY 02/27/17 03/07/17 History Mirtazapine [Remeron] 15 mg PO HS 02/27/17 03/07/17 History Mupirocin Cream [Bactroban 2% 1 applicatio TOP TID 02/27/17 03/07/17 History Cream] [place]-3 Fatty Acids [Fish Oil 1,000 mg PO TID 02/27/17 03/07/17 History Concentrate] Potassium Chloride [K-Dur] 1 tab PO DAILY 02/27/17 03/07/17 History Vitamin E 1,000 unit PO DAILY 02/27/17 03/07/17 History Yves/Polym/Bacitracin Oint Pckt 1 applic 03/07/17 History [Neosporin] Allergies Allergy/AdvReac Type Severity Reaction Status Date / Time sulfamethoxazole Allergy Unknown hives Verified 02/11/17 18:50 trimethoprim Allergy Unknown HIVES Verified 02/11/17 18:50 niacin AdvReac Intermediate HIVES Verified 02/27/17 10:59 Exam Vital Signs: Temperature 97.4 F 03/07/17 08:35 Pulse Rate 87 03/07/17 08:00 Respiratory Rate 20 03/07/17 08:00 Blood Pressure 143/67 H 03/07/17 08:00 Pulse Oximetry 99 03/07/17 08:00 Height/Weight/BMI: Height 1.6 m Weight 77.2 kg Body Mass Index 30.1 - Constitutional Present: no acute distress, well nourished, well developed - Routine HEENT Exam Eye: Present: EOMI ENT: Present: mucous membranes moist, dentition normal - Routine Neck Exam Present: full ROM - Routine Respiratory Exam Present: CTA bilaterally. Absent: wheezes - Routine Cardiovascular Exam Present: RRR, S1, S2. Absent: murmur - Routine Abdominal Exam Present: soft, normoactive bowel sounds, non distended. Absent: tenderness - Routine Extremities Exam Present: normal capillary refill - Routine Skin Exam Present: dry, warm - Routine Neurological Exam Present: alert, oriented X3, CN II-XII intact - Routine Psychiatric Exam Present: normal affect Results - Labs CBC & Chem 7: 03/07/17 05:09 03/07/17 05:09 Assessment and Plan (1) Diabetic foot ulcers Current visit: No Status: Chronic (2) MRSA (methicillin resistant staph aureus) culture positive Current visit: No Status: Acute (3) Debility Current visit: Yes Status: Acute Resuscitation Status: Do Not Resuscitate Assessment and Plan: Impression Debility related to recent illness Hypernatremia- persistent Recent sepsis with bacteremia MRSA wound culture of right foot Esophageal cancer Diabetes COPD Chronic O2 use Hypertension History of atrial fibrillation Neuropathy Plan Agree with admission to IRU for further therapy and improved strengthening The hospitalist services will continue to follow patient and medically manage comorbidities Continue with Levaquin q 48 hours and doxycycline twice a day- course length through 03/10/17 Wound care consultation for management of right diabetic foot ulcer Will monitor Accu-Cheks and continue with home regimen including NovoLog 4 units with breakfast, 6 units with lunch, 4 units with supper as well as Levemir 20 units at at bedtime. Continue on chronic cardiac medications including Coreg, Bumex, lisinopril Continue to monitor routine electrolytes. Given persistent hypernatremia. Order placed to encourage oral intake. Also monitor renal function, Human Factors Specialist today 1.3. Encourage work with PT and OT for ongoing strengthening Appreciate medical consultation, the hospitalist services will continue to follow patient and medically manage her existing comorbidities during her stay At time of discharge from the IRU follow-up appointments need to be made with Dr. Newman and Dr. Dietz Hospital Course Summary Disclaimer: The visit summary below is not to be considered part of the above Progress Note. Hospital Course: 03/07 Impression Debility related to recent illness Hypernatremia- persistent Recent sepsis with bacteremia MRSA wound culture of right foot Esophageal cancer Diabetes COPD Hypertension History of atrial fibrillation Neuropathy Plan Agree with admission to IRU for further therapy and improved strengthening The hospitalist services will continue to follow patient and medically manage comorbidities Continue with Levaquin q 48 hours and doxycycline twice a day- course length through 03/10/17 Wound care consultation for management of right diabetic foot ulcer Will monitor Accu-Cheks and continue with home regimen including NovoLog 4 units with breakfast, 6 units with lunch, 4 units with supper as well as Levemir 20 units at at bedtime. Continue on chronic cardiac medications including Coreg, Bumex, lisinopril Continue to monitor routine electrolytes. Given persistent hypernatremia. Order placed to encourage oral intake. Also monitor renal function, Human Factors Specialist today 1.3. Encourage work with PT and OT for ongoing strengthening Appreciate medical consultation, the hospitalist services will continue to follow patient and medically manage her existing comorbidities during her stay At time of discharge from the IRU follow-up appointments need to be made with Dr. Newman and Dr. Dietz <Vishnu Casiano - Last Filed: 03/07/17 14:29> Consult Information - Data of Consult Requesting Physician: Rai Chowdary MD Primary Care Provider: Rachel iDetz DO Family Provider: Rachel Dietz DO [facility] Patient Stated Medical History Hearing Loss Yes: hearing aids Cardiac Arrhythmia Yes: afib Congestive Heart Failure Yes Hypertension Yes Chronic Obstructive Pulmonary Yes Disease (COPD) Sleep Apnea Yes Diabetes Mellitus Type 1 Yes Diabetes Mellitus Type 2 Yes Constipation Yes Gastroesophageal Reflux Yes Disease Hx Incontinence Yes Hx Urinary Tract Infection Yes Cellulitis Yes: foot MRSA Yes Sepsis Yes Other Yes: removal of PAC Rt chest Clinic Medical History (Last Updated 02/11/17 @ 18:53 by Zoe Rodriguez [place]) Diabetes (Chronic Medical) Heart disease (Chronic Medical) Neuropathy (Chronic Medical) Exam Vital Signs: Temperature 97.4 F 03/07/17 08:35 Pulse Rate 87 03/07/17 08:00 Respiratory Rate 20 03/07/17 08:00 Blood Pressure 143/67 H 03/07/17 08:00 Pulse Oximetry 99 03/07/17 08:00 Height/Weight/BMI: Height 1.6 m Weight 77.3 kg Body Mass Index 30.1 Results - Labs CBC & Chem 7: 03/07/17 05:09 03/07/17 05:09 Assessment and Plan (1) MRSA (methicillin resistant staph aureus) culture positive Current visit: No Status: Acute (2) Diabetic foot ulcers Current visit: No Status: Chronic (3) Debility Current visit: Yes Status: Acute Assessment and Plan: Impression Debility related to recent illness Hypernatremia- persistent Recent sepsis with bacteremia MRSA wound culture of right foot Esophageal cancer Diabetes COPD Chronic O2 use Hypertension History of atrial fibrillation Neuropathy Have independently interviewed and examined pt. Chart reviewed. Case discussed with my RISK SPECIALIST. Above care plan developed with my supervision; agree with above. Doing well this afternoon-tired from working with therapy today. Had very good workout. Very encourage that she is in rehab to get strength back. Breathing doing well-not having increased SOA or congestion. No pain with breathing. Eating well - not feeling nausea or ab pain. No f/c. Lungs: decreased, no crackles/wheezes. Breathing comfortably on O2. CV: irregularly irregular, rate controlled. AB: soft nt/nd +BS MSE: awake alert appropriate Plan: Agree with admission of patient to IRU to maximize strength and functional status prior to return to home independent living. Continue with antibiotics as outlined by ID. With sodium showing elevation, decrease Bumex to 0.5mg once a day. Need to monitor weight and volume status. Continue glycemic control. Monitor sugars. Encourage participation with therapy to maximize functional status. Medically stable for IRU floor activities. Hospital Course Summary Disclaimer: The visit summary below is not to be considered part of the above Progress Note.
[2017-03-07] MEDS: NEOMYCIN/POLYMYXIN/BACITRACIN OINT PACKET TP SCH (09:10)
--- NOTE | 2017-03-07 09:54 | IRU Progress Note ---
- Subjective/Serverity of Illness Ms. Ball is settling into the rehabilitation routine. She is currently working with therapy. She is ambulating fairly well. She is using a 4 wheeled walker. Patient states that she slept fairly well last night and 80 fairly good breakfast. Denies current difficulty swallowing. However, with exertion she does have shortness of breath. She states this is not terribly new for her. She does have a diagnosis of underlying COPD as well as diastolic heart failure. The right foot is in a protective boot and I did not remove that today. She has remained afebrile. She has had no nausea no vomiting. She states her bowels are adequate. Update on medical issues as follows: 1. Infected wounds (right distal medial foot, left lateral malleolus) with recent sepsis. Wound clinic nurse has been consulted and I believe saw the patient while on acute. I did not remove the protective boot today as she was involved in therapy. She remains afebrile and her white count is normal. 2. Diabetes mellitus, insulin controlled. Her blood sugars are reviewed and in general are well controlled. She is being monitored with fingerstick blood sugars. She remains on insulin as noted. 3. COPD with chronic hypoxemia. She does have dyspnea with activity. There is no cough and no sputum at present.. Exam Vital Signs: Temperature 97.4 F 03/07/17 08:35 Pulse Rate 87 03/07/17 08:00 Respiratory Rate 20 03/07/17 08:00 Blood Pressure 143/67 H 03/07/17 08:00 Pulse Oximetry 99 03/07/17 08:00 Height/Weight/BMI: Height 1.6 m Weight 77.2 kg Body Mass Index 30.1 Comments: The patient is awake, alert and oriented and in no acute distress. She is very pleasant and communicative. Pupils are equal. The neck is supple. Chest: She does have reduced breath sounds with some basilar crackles. Cor: RR with no gallop, click nor murmur Abd: soft with normo-active bowel sounds. There are no masses, no tenderness and no guarding. Extremities: No edema is noted. Wounds are covered I did not remove the dressing at this time because she is involved with therapy. Results IRU - Labs Labs: I reviewed today's labs as well as hospitalist consultation. IRU A/P (1) Diabetic foot ulcers Qualifiers: Diabetic foot ulcer location: other Diabetes mellitus type: type 1 Laterality: left Non-pressure ulcer stage: with fat layer exposed Qualified Code(s): E10.621 - Type 1 diabetes mellitus with foot ulcer; L97.522 - Non- pressure chronic ulcer of other part of left foot with fat layer exposed Current visit: No Status: Chronic We will continue to monitor white count periodically as well as continue the oral antibiotics of Levaquin and doxycycline. When therapy is been consulted. 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 We will continue to monitor blood sugars carefully. (3) MRSA (methicillin resistant staph aureus) culture positive Current visit: No Status: Acute DVT Prophylaxis: SCD's (it is noted that she has had a previous GI bleed and for that reason is not on chronic anticoagulants.) Resuscitation Status: Do Not Resuscitate - Course Hospital Course: Rai Chowdary MD: 03/07/17 09:55 She is doing well with therapy. Blood sugars are monitored and are stable. She does have some dyspnea with activity. A few crackles in the bases are noted. - Interventions to Obtain Goals PT Treatment Plan: Balance/Proprioception, Functional Activities, Gait Training , Patient/Family Education OT Treatment Plan: ADL (Basic Care), Balance Training, IADL, Pt./Family Education, Ther. Exercise for ADL Goals Progress/Modifications: Time spent with patient and on floor reviewing data and documentin minutes Barriers to dismissal: Wound management, monitoring of blood sugars, ADLs Medical decision-making: I have reviewed her overall situation. The patient does have crackles in the bases and does complain of some degree of dyspnea with activity. Her weight is up a couple of kilograms compared to the acute care stay although different scale no doubt. She does have history of diastolic heart failure. She did receive some fluids while on acute secondary to her sepsis diagnosis. She is not overtly in respiratory distress. We will monitor carefully and work with the hospitalist with regard to diuresis. Her creatinine is 1.3. In addition, I reviewed her blood sugars. We will make no changes at this time with regard to her insulin management etc. Please note that the patient's individual plan of care was developed and documented today, requiring review of therapy notes, medical conditions and anticipated functional recovery. This required additional medical decision making with regard to interaction of the patient's medical issues with the anticipated functional recovery. Please see separate document
--- NOTE | 2017-03-07 10:00 | IRU Plan of Care ---
[facility] Overall Plan of Care - Date Date: 03/07/17 - Patient Impairments (1) Diabetic foot ulcers Qualifiers: Diabetic foot ulcer location: other Diabetes mellitus type: type 1 Laterality: left Non-pressure ulcer stage: with fat layer exposed Qualified Code(s): E10.621 - Type 1 diabetes mellitus with foot ulcer; L97.522 - Non- pressure chronic ulcer of other part of left foot with fat layer exposed Code(s): E11.621 - Type 2 diabetes mellitus with foot ulcer; L97.509 - Non- pressure chronic ulcer of other part of unspecified foot with unspecified severity Status: Chronic Classification: Present on IRF Admission, IRF Tx That Should Address Diagnosis, Diagnosis Requiring Medical Follow Up 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 Code(s): E10.51 - Type 1 diabetes mellitus with diabetic peripheral angiopathy without gangrene; I70.209 - Unspecified atherosclerosis of red devil arteries of extremities, unspecified extremity Status: Acute Classification: Present on IRF Admission, IRF Tx That Should Address Diagnosis, Diagnosis Requiring Medical Follow Up (3) MRSA (methicillin resistant staph aureus) culture positive Code(s): Z22.322 - Carrier or suspected carrier of Methicillin resistant Staphylococcus aureus Status: Acute Classification: Present on IRF Admission, IRF Tx That Should Address Diagnosis, Diagnosis Requiring Medical Follow Up - Relevant Changes Relevant Changes: No Reviewed: I have reviewed the patient's information and concur with the finding and results of the pre-admission screen. Certification: I certify the patient for rehabilitation. - Medical Prognosis Medical Prognosis: Good Vital Signs: Last Vital Signs Temp 97.4 F 03/07/17 08:35 Pulse 87 03/07/17 08:00 Resp 20 03/07/17 08:00 BP 143/67 H 03/07/17 08:00 Pulse Ox 99 03/07/17 08:00 - Anticipated Interventions Anticipated Interventions: The patient requires inpatient IRF care for PT, OT, and/or ST for residuals remaining from infected diabetic foot ulcers, recent sepsis, COPD with dyspnea and hypoxemia resulting in muscular weakness and strength deficits. - Current Functional Status Failed Alternative Therapy: Arrived from Acute Care Patient Requires: The patient requires oversight by rehabilitation physician to manage their rehabilitation treatment plan and multidisciplinary approach to care that can only be provided in an IRF and requires a multidisciplinary approach to care, provided by professional PTs, OTs, STs, dieticians, RTs, rehabilitation nurses and is not available in lesser levels of care. Physical Therapy Minutes: 90 Occupational Therapy Minutes: 90 Therapy: The patient is to receive therapy at least 5 days a week. - Anticipated LOS/Outcomes Anticipated Functional Outcome: It is anticipated that the patient will be able to return to her home with modified independent to independent functioning for most ADLs. Anticipated Length of Stay (days): 5 Anticipated DC Destination: Home Health Service Home Safety Plan: The patient will be provided with the development of a Home Safety Plan for return to a home or home-like environment and and to ensure safety post discharge. - Plan to Avoid Complications Barriers to Attaining Goals: Weakness, Endurance, Medical Limitation Plan to Avoid Complications: The patient cannot receive this care in a lesser intensive setting such as Long Term or Outpatient Therapy due to the patient requiring the following : Need to monitor blood sugars carefully in view of Levaquin usage as well as variable oral intake because of her recent sepsis and foot ulcers. In addition, it is necessary to monitor her oxygen saturations in view of her underlying COPD and increased energy expenditure with therapy. .
[2017-03-07] MEDS: ACETAMINOPHEN 500 MG TABLET PO PRN (10:17)
[2017-03-07] MEDS: MIRTAZAPINE 15 MG TABLET PO SCH (21:42)
[2017-03-07] MEDS: INSULIN DETEMIR 100unit/ml INJECTION SQ SCH (21:54)
[2017-03-08] MEDS: SUCRALFATE 1 GM TABLET PO SCH ×4 (06:04→21:10)
[2017-03-08] MEDS: NEOMYCIN/POLYMYXIN/BACITRACIN OINT PACKET TP SCH (08:10)
[2017-03-08] MEDS: VITAMIN E 1,000 UNIT CAPSULE PO SCH (08:10)
[2017-03-08] MEDS: INSULIN ASPART 100unit/ml INJECTION SQ SCH ×3 (08:10→17:25)
[2017-03-08] MEDS: CALCIUM 500 + VIT D 200 TABLET PO SCH ×2 (08:11→21:10)
[2017-03-08] MEDS: AMLODIPINE 2.5 MG TABLET PO SCH (08:12)
[2017-03-08] MEDS: ASCORBIC ACID 500 MG TABLET PO SCH (08:13)
[2017-03-08] MEDS: CARVEDILOL 12.5 MG TABLET PO SCH ×2 (08:14→17:25)
[2017-03-08] MEDS: BUMETANIDE 0.5 MG TABLET PO SCH (08:14)
[2017-03-08] MEDS: LISINOPRIL 2.5 MG TABLET PO SCH ×2 (08:15→21:10)
[2017-03-08] MEDS: AMIODARONE 200 MG TABLET PO SCH (08:15)
[2017-03-08] MEDS: DOCUSATE SODIUM 100 MG CAPSULE PO SCH ×3 (08:16→21:04)
[2017-03-08] MEDS: ACETAMINOPHEN 500 MG TABLET PO PRN (11:15)
[2017-03-08] MEDS: MIRTAZAPINE 15 MG TABLET PO SCH (21:10)
[2017-03-08] MEDS: INSULIN DETEMIR 100unit/ml INJECTION SQ SCH (21:15)
[2017-03-09] MEDS: SUCRALFATE 1 GM TABLET PO SCH ×4 (05:39→21:05)
[2017-03-09] MEDS: LISINOPRIL 2.5 MG TABLET PO SCH ×2 (09:02→21:05)
[2017-03-09] MEDS: AMIODARONE 200 MG TABLET PO SCH (09:02)
[2017-03-09] MEDS: ASCORBIC ACID 500 MG TABLET PO SCH (09:02)
[2017-03-09] MEDS: AMLODIPINE 2.5 MG TABLET PO SCH (09:02)
[2017-03-09] MEDS: CARVEDILOL 12.5 MG TABLET PO SCH ×2 (09:02→17:45)
[2017-03-09] MEDS: BUMETANIDE 0.5 MG TABLET PO SCH (09:03)
[2017-03-09] MEDS: INSULIN ASPART 100unit/ml INJECTION SQ SCH ×3 (09:03→17:46)
[2017-03-09] MEDS: NEOMYCIN/POLYMYXIN/BACITRACIN OINT PACKET TP SCH (09:04)
[2017-03-09] MEDS: DOCUSATE SODIUM 100 MG CAPSULE PO SCH ×3 (09:04→21:03)
[2017-03-09] MEDS: VITAMIN E 1,000 UNIT CAPSULE PO SCH (09:04)
[2017-03-09] MEDS: CALCIUM 500 + VIT D 200 TABLET PO SCH ×2 (09:05→21:05)
--- NOTE | 2017-03-09 16:45 | Progress Note ---
Subjective: F/U: Recent sepsis with bacteremia, MRSA wound culture of right foot, Esophageal cancer, Diabetes COPD Doing well this afternoon. Had good workout with therapy today. Breathing stable. No chest pain or palpitations. Appetite stable. No f/c. Objective Vital signs: Temperature 97.7 F 03/09/17 16:25 Pulse Rate 81 03/09/17 16:25 Respiratory Rate 23 03/09/17 16:25 Blood Pressure 138/60 03/09/17 16:25 Pulse Oximetry 99 03/09/17 16:25 Height/Weight/BMI: Height 1.6 m Weight 76.8 kg Body Mass Index 30.1 - Constitutional Present: no acute distress, well nourished, well developed, cooperative - Routine HEENT Exam Head: Present: normocephalic, atraumatic Eye: Present: EOMI, PERRL ENT: Present: mucous membranes moist - Routine Respiratory Exam Present: decreased breath sounds. Absent: rales, respiratory distress, rhonchi , stridor, wheezes, crackles - Routine Cardiovascular Exam Present: irregular rhythm, irregularly irregular - Routine Abdominal Exam Present: soft, normoactive bowel sounds, non distended, non tender - Routine Extremities Exam Present: pulses intact. Absent: cyanosis, clubbing - Routine Musculoskeletal Exam Musculoskeletal: Present: no clubbing or cyanosis - Routine Skin Exam Present: dry, warm - Routine Neurological Exam Present: alert, oriented X3, CN II-XII intact, moving all extremities, vision grossly intact, hearing grossly intact. Absent: motor deficit, altered mental status - Routine Psychiatric Exam Present: normal affect, normal thought process, cooperative, good insight, good judgment Results - Labs CBC & Chem 7: 03/07/17 05:09 03/07/17 05:09 Assessment and Plan (1) MRSA (methicillin resistant staph aureus) culture positive Current visit: No Status: Acute (2) Diabetic foot ulcers Current visit: No Status: Chronic (3) Debility Current visit: Yes Status: Acute DVT Prophylaxis: SCD's Resuscitation Status: Do Not Resuscitate Assessment and Plan: Impression Debility related to recent illness Hypernatremia- persistent Recent sepsis with bacteremia MRSA wound culture of right foot Esophageal cancer Diabetes COPD Chronic O2 use Hypertension History of atrial fibrillation Neuropathy Plan Bumex decreased to once a day as sodium persistently elevated. Recheck BMP tomorrow. Blood sugars stable. Continue with Levaquin q 48 hours and doxycycline twice a day- course length through 03/10/17 - tolerating antibiotics well. Encourage continuation of therapy. Medically stable for IRU floor activities. Hospital Course Summary Disclaimer: The visit summary below is not to be considered part of the above Progress Note. Hospital Course: 03/07/17 Impression Debility related to recent illness Hypernatremia- persistent Recent sepsis with bacteremia MRSA wound culture of right foot Esophageal cancer Diabetes COPD Hypertension History of atrial fibrillation Neuropathy Plan Agree with admission to IRU for further therapy and improved strengthening. The hospitalist services will continue to follow patient and medically manage comorbidities. Continue with Levaquin q 48 hours and doxycycline twice a day- course length through 03/10/17. Wound care consultation for management of right diabetic foot ulcer. Will monitor Accu-Cheks and continue with home regimen including NovoLog 4 units with breakfast, 6 units with lunch, 4 units with supper as well as Levemir 20 units at at bedtime. Continue on chronic cardiac medications including Coreg, Bumex, lisinopril. Continue to monitor routine electrolytes. Given persistent hypernatremia. Order placed to encourage oral intake. 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 Encourage work with PT and OT for ongoing strengthening Appreciate medical consultation, the hospitalist services will continue to follow patient and medically manage her existing comorbidities during her stay At time of discharge from the IRU follow-up appointments need to be made with Dr. Newman and Dr. Dietz 03/09/17 Bumex decreased to once a day as sodium persistently elevated. Recheck BMP tomorrow. Blood sugars stable. Blood pressure and HR stable. Continue with Levaquin q 48 hours and doxycycline twice a day- course length through 03/10/17 - tolerating antibiotics well.
[2017-03-09] MEDS: INSULIN DETEMIR 100unit/ml INJECTION SQ SCH (21:05)
[2017-03-09] MEDS: MIRTAZAPINE 15 MG TABLET PO SCH (21:06)
[2017-03-10] MEDS: SUCRALFATE 1 GM TABLET PO SCH ×4 (06:17→21:10)
[2017-03-10] MEDS: INSULIN ASPART 100unit/ml INJECTION SQ SCH ×3 (09:00→17:00)
[2017-03-10] MEDS: DOCUSATE SODIUM 100 MG CAPSULE PO SCH ×3 (09:00→21:07)
[2017-03-10] MEDS: LISINOPRIL 2.5 MG TABLET PO SCH ×2 (09:20→21:10)
[2017-03-10] MEDS: VITAMIN E 1,000 UNIT CAPSULE PO SCH (09:20)
[2017-03-10] MEDS: BUMETANIDE 0.5 MG TABLET PO SCH (09:21)
[2017-03-10] MEDS: ASCORBIC ACID 500 MG TABLET PO SCH (09:21)
[2017-03-10] MEDS: AMLODIPINE 2.5 MG TABLET PO SCH (09:21)
[2017-03-10] MEDS: AMIODARONE 200 MG TABLET PO SCH (09:22)
[2017-03-10] MEDS: CARVEDILOL 12.5 MG TABLET PO SCH ×2 (09:22→17:56)
[2017-03-10] MEDS: CALCIUM 500 + VIT D 200 TABLET PO SCH ×2 (09:28→21:10)
[2017-03-10] MEDS: NEOMYCIN/POLYMYXIN/BACITRACIN OINT PACKET TP SCH (10:00)
[2017-03-10] MEDS: ACETAMINOPHEN 500 MG TABLET PO PRN (18:51)
[2017-03-10] MEDS: MIRTAZAPINE 15 MG TABLET PO SCH (21:10)
[2017-03-10] MEDS: INSULIN DETEMIR 100unit/ml INJECTION SQ SCH (21:12)
[2017-03-11] MEDS: SUCRALFATE 1 GM TABLET PO SCH ×3 (05:44→16:58)
[2017-03-11] MEDS: LISINOPRIL 2.5 MG TABLET PO SCH ×2 (08:39→22:27)
[2017-03-11] MEDS: VITAMIN E 1,000 UNIT CAPSULE PO SCH (08:39)
[2017-03-11] MEDS: NEOMYCIN/POLYMYXIN/BACITRACIN OINT PACKET TP SCH (08:39)
[2017-03-11] MEDS: AMLODIPINE 2.5 MG TABLET PO SCH (08:40)
[2017-03-11] MEDS: AMIODARONE 200 MG TABLET PO SCH (08:40)
[2017-03-11] MEDS: CARVEDILOL 12.5 MG TABLET PO SCH ×2 (08:41→18:01)
[2017-03-11] MEDS: ASCORBIC ACID 500 MG TABLET PO SCH (08:42)
[2017-03-11] MEDS: CALCIUM 500 + VIT D 200 TABLET PO SCH ×2 (08:42→22:26)
[2017-03-11] MEDS: BUMETANIDE 0.5 MG TABLET PO SCH (08:42)
[2017-03-11] MEDS: DOCUSATE SODIUM 100 MG CAPSULE PO SCH ×3 (08:43→21:20)
[2017-03-11] MEDS: INSULIN ASPART 100unit/ml INJECTION SQ SCH ×3 (08:47→18:01)
--- NOTE | 2017-03-11 14:50 | IRU Progress Note ---
- Subjective/Serverity of Illness Angela was evaluated on the inpatient rehabilitation unit. She is doing well with therapy. There is some degree of dyspnea with activity. She does have diagnosis of underlying COPD and does have chronic use of oxygen. However she has improved significant with regard to therapies. She is now standby assistance for grooming. Upper body dressing is modified independent functioning and lower body dressing is standby assistance. She is modified independent for bed/chair/wheelchair transfers. Update on medical issues as follows: 1. Infected wounds (right distal medial foot, left lateral malleolus) with recent sepsis. Continues to be followed by wound care. Has no pressure area on heel. This is being monitored carefully. 2. Diabetes mellitus, insulin controlled. Blood sugars are reviewed and in general are reasonably well controlled. No hypoglycemic episodes are noted. 3. COPD with chronic hypoxemia. She does have dyspnea with activity. There is no cough and no sputum at present.. Exam Vital Signs: Temperature 97.7 F 03/11/17 07:50 Pulse Rate 92 03/11/17 07:50 Respiratory Rate 20 03/11/17 07:50 Blood Pressure 138/58 03/11/17 07:50 Pulse Oximetry 97 03/11/17 07:50 Height/Weight/BMI: Height 1.6 m Weight 76.5 kg Body Mass Index 30.1 Comments: The patient is awake, alert and oriented and in no acute distress. Pupils are equal. The neck is supple. Chest: Reduced breath sounds bilaterally Cor: RR with no gallop, click nor murmur Abd: soft with normo-active bowel sounds. There are no masses, no tenderness and no guarding. Extremities: No significant edema is noted. She does have the protective boot on the right lower extremity however. Nurses report new pressure lesion on the heel. 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 She has not been febrile. Wound care following patient. 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 She is on insulin. (3) MRSA (methicillin resistant staph aureus) culture positive Current visit: No Status: Acute DVT Prophylaxis: SCD's Resuscitation Status: Do Not Resuscitate - Course Hospital Course: Rai Chowdary MD: 03/07/17 09:55 She is doing well with therapy. Blood sugars are monitored and are stable. She does have some dyspnea with activity. A few crackles in the bases are noted. 03/11/17 14:50 Continues to progress with therapy. She is modified independent for upper body dressing and standby assistance for lower body dressing. Anticipate dismissal this week with home health assistance. - Interventions to Obtain Goals PT Treatment Plan: Balance/Proprioception, Functional Activities, Gait Training , Patient/Family Education, Therapeutic Exercise OT Treatment Plan: ADL (Basic Care), Balance Training, IADL, Pt./Family Education, Ther. Exercise for ADL
--- NOTE | 2017-03-11 14:53 | IRU Team Meeting ---
IRU Team Meeting - Nursing Vital Signs: Vital Signs - 24 hr 03/10/17 16:02 03/10/17 21:49 03/11/17 07:50 Temperature 97.7 F 97.9 F 97.7 F Pulse Rate 64 81 92 Respiratory Rate 22 18 20 Blood Pressure 127/54 121/51 138/58 Pulse Oximetry 99 96 97 Current Medications: Acetaminophen (Tylenol Arthritis) 650 mg PO DAILY PRN PRN Reason: Pain Acetaminophen (Tylenol) 500 mg PO Q5H PRN PRN Reason: Discomfort Last Admin: 03/10/17 18:51 Dose: 500 mg Albuterol/Ipratropium (Duoneb) 3 ml AEROSOL QID PRN PRN Reason: PRN orders Amiodarone HCl (Pacerone) 200 mg PO DAILY [facility] Last Admin: 03/11/17 08:40 Dose: 200 mg Amlodipine Besylate (Norvasc) 2.5 mg PO DAILY [facility] Last Admin: 03/11/17 08:40 Dose: 2.5 mg Ascorbic Acid (Vitamin C) 500 mg PO DAILY [facility] Last Admin: 03/11/17 08:42 Dose: 500 mg Bisacodyl (Dulcolax) 10 mg RECTALLY DAILY PRN PRN Reason: CON Bumetanide (Bumex Tab) 0.5 mg PO DAILY [facility] Last Admin: 03/11/17 08:42 Dose: 0.5 mg Calcium/Vitamin D (Os Jean-D 500) 1 tab PO BID [facility] Last Admin: 03/11/17 08:42 Dose: 1 tab Carvedilol (Coreg) 12.5 mg PO BIDWM [facility] Last Admin: 03/11/17 08:41 Dose: 12.5 mg Diphenhydramine HCl (Benadryl) 25 mg PO Q6H PRN PRN Reason: Itching Docusate Sodium (Colace) 100 mg PO TID [facility] Last Admin: 03/11/17 08:43 Dose: Not Given Doxycycline Hyclate (Vibramycin) 100 mg PO BIDWM [facility] Last Admin: 03/11/17 08:38 Dose: 100 mg Guaifenesin (Mucinex La) 600 mg PO BID PRN PRN Reason: PRN orders Last Admin: 03/11/17 08:41 Dose: 600 mg Guaifenesin/Dextromethorphan (Robitussin Dm) 5 ml PO Q4H PRN PRN Reason: Cough Insulin Aspart (Novolog) 4 unit SQ WB [facility] Last Admin: 03/11/17 08:47 Dose: 4 unit Insulin Aspart (Novolog) 6 unit SQ WL [facility] Last Admin: 03/11/17 12:36 Dose: 6 unit Insulin Aspart (Novolog) 4 unit SQ WS [facility] Last Admin: 03/10/17 17:00 Dose: 4 unit Insulin Detemir (Levemir) 20 unit SQ HS [facility] Last Admin: 03/10/17 21:12 Dose: 20 unit Lisinopril (Prinivil) 2.5 mg PO DAILY [facility] Last Admin: 03/11/17 08:39 Dose: 2.5 mg Lisinopril (Prinivil) 2.5 mg PO HS [facility] Last Admin: 03/10/17 21:10 Dose: 2.5 mg Magnesium Hydroxide (Mom) 30 ml PO DAILY PRN PRN Reason: Constipation Mirtazapine (Remeron) 15 mg PO HS [facility] Last Admin: 03/10/17 21:10 Dose: 15 mg Neomycin/Polymyxin/Bacitracin (Neosporin) 1 applic TP DAILY [facility] Last Admin: 03/11/17 08:39 Dose: 1 applic Polyethylene Glycol (Miralax) 17 gm PO DAILY PRN PRN Reason: CON Sucralfate (Carafate) 1 gm PO ACHS [facility] Last Admin: 03/11/17 12:36 Dose: 1 gm Tramadol HCl (Ultram) 25 mg PO Q6H PRN PRN Reason: Pain Vitamin E (Vitamin E) 1,000 unit PO DAILY [facility] Last Admin: 03/11/17 08:39 Dose: 1,000 unit Current Medical Issues: COPD with chronic hypoxemia and need for supplemental oxygen, esophageal cancer , foot wounds secondary to diabetes mellitus. Comments: I certify that I personally led the interdisciplinary team meeting and agree with comments, barriers and goals indicated. Team meeting was held in the patient's room with the patient and the following family members present: None ( patient only) The patient is doing well clinically. She does have a new possible pressure area on the heel. Wound care is being asked to follow her. She is afebrile. Appetite is good. Blood sugars are adequately controlled on insulin. - Physical Therapy Comments: She is walking over 300 feet with a front-wheeled walker with standby assistance. Transfers are modified independent. - Occupational Therapy Comments: The patient standby assistance for grooming. She is modified independent functioning for upper body dressing and standby assistance for lower body dressing. She is modified independent for bed/chair/wheelchair transfers. - Goals Tolerate 60 minutes of therapy with 2 rest breaks Work on endurance particularly regarding laundry. - Barriers to Discharge Barriers to Attaining Goals: Weakness, Endurance, Medical Limitation (COPD/ dyspnea.) - Care Plan Anticipated DC Destination: Home Health Service I have led this team conference and agree with the plan. Anticipated Length of Stay (days): 2
--- NOTE | 2017-03-11 16:57 | Wound Care Progress Note ---
Wound Center Progress Note: Pt known to clinic and we have seen her on this hopsitalization. At this time her wound to the right 1st met head is unchanged and will continue Acquacell AG and Mepliex. Left lateral anckle wound is unchanged and will contiue Aquacell AG and mepliex. Pt is instructed upon dismissal to make an appoinment at the clinic.
[2017-03-11] MEDS: ACETAMINOPHEN 500 MG TABLET PO PRN (17:07)
[2017-03-11] MEDS: INSULIN DETEMIR 100unit/ml INJECTION SQ SCH (22:26)
[2017-03-11] MEDS: MIRTAZAPINE 15 MG TABLET PO SCH (22:27)
[2017-03-12] MEDS: SUCRALFATE 1 GM TABLET PO SCH ×5 (05:56→21:17)
[2017-03-12] MEDS: VITAMIN E 1,000 UNIT CAPSULE PO SCH (08:54)
[2017-03-12] MEDS: INSULIN ASPART 100unit/ml INJECTION SQ SCH ×3 (08:54→18:03)
[2017-03-12] MEDS: LISINOPRIL 2.5 MG TABLET PO SCH ×2 (08:54→21:17)
[2017-03-12] MEDS: CARVEDILOL 12.5 MG TABLET PO SCH ×2 (08:55→18:05)
[2017-03-12] MEDS: NEOMYCIN/POLYMYXIN/BACITRACIN OINT PACKET TP SCH (08:55)
[2017-03-12] MEDS: AMIODARONE 200 MG TABLET PO SCH (08:55)
[2017-03-12] MEDS: ASCORBIC ACID 500 MG TABLET PO SCH (08:55)
[2017-03-12] MEDS: CALCIUM 500 + VIT D 200 TABLET PO SCH ×2 (08:55→21:18)
[2017-03-12] MEDS: BUMETANIDE 0.5 MG TABLET PO SCH (08:55)
[2017-03-12] MEDS: AMLODIPINE 2.5 MG TABLET PO SCH (08:55)
[2017-03-12] MEDS: DOCUSATE SODIUM 100 MG CAPSULE PO SCH ×3 (08:56→21:18)
--- NOTE | 2017-03-12 10:37 | IRU Progress Note ---
- Subjective/Serverity of Illness Patient was evaluated in the therapy unit. She is concerned about her right heel ulcer and I told her that we are aware of that. Wound clinic has been following her as well. We did advise her to stay off of it as much as possible. In addition she will require outpatient follow-up in the wound clinic. She states that she is able to eat and drink adequately. Right now she is swallowing okay. It is noted that her potassium remains elevated at 5.5. Sodium is up at 149. Etiology not clear. Remains on a low-dose of lisinopril which could account for the potassium at least. Her blood sugars are reviewed and doing reasonably well on multiple shots daily Update on medical issues as follows: 1. Infected wounds (right distal medial foot, left lateral malleolus) with recent sepsis. We discussed her heel ulcer on the right. Wound care has been consulted. Recommend avoidance of pressure to the area. She will require outpatient follow-up. She remains on doxycycline. 2. Diabetes mellitus, insulin controlled. I have again reviewed the blood sugars and they seem to be adequately controlled on multiple shots daily. 3. COPD with chronic hypoxemia. No change in her chronic dyspnea with activity. She is requiring supplemental oxygen chronically. Exam Vital Signs: Temperature 97.8 F 03/12/17 08:00 Pulse Rate 72 03/12/17 08:00 Respiratory Rate 16 03/12/17 08:00 Blood Pressure 138/66 03/12/17 08:00 Pulse Oximetry 100 03/12/17 08:00 Height/Weight/BMI: Height 1.6 m Weight 76.5 kg Body Mass Index 30.1 Comments: The patient is awake, alert and oriented and in no acute distress. The neck is supple. Chest: Clear to auscultation bilaterally. Cor: RR with no gallop, click nor murmur Abd: soft with normo-active bowel sounds. There are no masses, no tenderness and no guarding. Extremities: No edema is noted. Once again the boot is in place on the right side. I will find time today to remove the boot and take a look at the heel ulcer. Results IRU - Labs Labs: I reviewed the lab indicating elevated attests him and sodium. 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 We will assess her right heel ulcer prior to dismissal. 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 Her sugars are doing reasonably well and she has had no hypoglycemic episodes. (3) MRSA (methicillin resistant staph aureus) culture positive Current visit: No Status: Acute (4) Hyperkalemia Current visit: Yes Status: Acute Potassium continues to be running a bit high at 5.5. She is on a low dose of Prinivil which could be a factor. I have discussed with the hospitalist service and they will monitor this. DVT Prophylaxis: SCD's Resuscitation Status: Do Not Resuscitate - Course Hospital Course: Rai Chowdary MD: 03/07/17 09:55 She is doing well with therapy. Blood sugars are monitored and are stable. She does have some dyspnea with activity. A few crackles in the bases are noted. 03/11/17 14:50 Continues to progress with therapy. She is modified independent for upper body dressing and standby assistance for lower body dressing. Anticipate dismissal this week with home health assistance. 03/12/17 10:38 She continues to improve. She feels though she can't take care of herself at home. Anticipate dismissal tomorrow. Potassium of 5.5 noted and have discussed. Right heel ulcer will be evaluated by me today. Wound care has also been consulted. - Interventions to Obtain Goals PT Treatment Plan: Balance/Proprioception, Functional Activities, Gait Training , Patient/Family Education, Therapeutic Exercise OT Treatment Plan: ADL (Basic Care), Balance Training, IADL, Pt./Family Education, Ther. Exercise for ADL Goals Progress/Modifications: Time spent with patient and on floor reviewing data and documentin min Barriers to dismissal: endurance, balance Medical decision-making: I reviewed her hyperkalemia and hypernatremia. Have discussed with the hospitalist service. She may need to be instructed in a low potassium diet. This will be monitored. In addition, I will personally assess the right heel ulcer. I discussed this with her and the need to continue outpatient follow-up with wound clinic as well as to avoid direct pressure on the area. She is wearing a protective boot at this time. She remains afebrile. She is on doxycycline. Have reviewed infectious disease notes in this regard as well.
--- NOTE | 2017-03-12 14:25 | Progress Note ---
Progress Note: I went back and checked on the patient this afternoon. I removed her right stocking. She does have a blister involving the right heel. It is not open at the present time. There is a dressing on it for cushioning. We instructed her to stay off of this as much as possible. It is not infected.
--- NOTE | 2017-03-12 19:55 | Discharge Instructions ---
Discharge Plan - Med Rec/Dispo Referrals/Follow Up: Ernst Newman MD [Physician] - Rachel Dietz DO [Family Provider] - (Dr. Guzman Dietz on 03/19/17 at 10:00 am for Hosp. follow-up. [address] [place] [address]) Prescriptions: New Bumetanide Tab [Bumex Tab] 0.5 mg PO DAILY #30 tab Continue Ascorbic Acid 500 mg PO DAILY #0 Carvedilol 12.5 mg PO BID #0 guaiFENesin [Mucinex] 600 mg PO BID PRN #0 PRN Reason: PRN ORDERS Acetaminophen [Acetaminophen 8 Hour] 650 mg PO DAILY PRN #0 PRN Reason: PAIN Amiodarone [Pacerone] 200 mg PO DAILY #30 tab Vitamin E 1,000 unit PO DAILY Mupirocin Cream [Bactroban 2% Cream] 1 applicatio TOP TID Mirtazapine [Remeron] 15 mg PO HS Lisinopril [Prinivil] 2.5 mg PO DAILY diphenhydrAMINE HCl [Benadryl] 25 mg PO Q6H PRN #0 PRN Reason: ITCHING Lisinopril 2.5 mg PO HS #0 Amlodipine Besylate 2.5 mg PO DAILY #0 Calcium Carbonate/Vitamin D3 [Calcium 600-Vit D3 200 Tablet] 1 tab PO BID #0 Docusate Sodium [Colace] 100 mg PO TID #0 Insulin Aspart [NovoLOG] 4 unit SQ WB #0 Insulin Aspart [NovoLOG] 6 unit SQ WL #0 Insulin Detemir [Levemir] 20 unit SQ HS #0 Ipratropium/Albuterol Sulfate [Iprat-Albut 0.5-3(2.5) mg/3 ml] 1 vial AEROSOL QID PRN #0 PRN Reason: PRN ORDERS LORazepam [Lorazepam] 0.5 - 1 mg PO TID PRN #0 PRN Reason: ANXIETY Polyethylene Glycol 3350 [Miralax] 17 g PO DAILY PRN #0 PRN Reason: CONSTIPATION Bisacodyl 10 mg RECTALLY DAILY PRN #0 PRN Reason: CONSTIPATION Insulin Aspart [NovoLOG] 4 unit SQ WS #0 Sucralfate [Carafate] 1 g PO ACHS #56 tab [place]-3 Fatty Acids [Fish Oil Concentrate] 1,000 mg PO TID Albuterol Neb (0.083%) [Proventil Neb (0.083%)] 2.5 mg AEROSOL Q6HR Yves/Polym/Bacitracin Oint Pckt [Neosporin] 1 applic Discontinued Guaifenesin/Dextromethorphan [Robitussin Cough-Chest Dm Liq] 5 ml PO Q4HR Potassium Chloride [K-Dur] 1 tab PO DAILY Bumetanide 0.5 mg PO BID Levofloxacin [Levaquin] 750 mg PO Q48H #2 tablet Milk of Magnesia [Mom] 30 ml PO DAILY PRN udc PRN Reason: Constipation Doxycycline [Vibramycin] 100 mg PO BIDWM 4 Days tablet No Action Hydrocodone/Acetaminophen (Tolar 5-325 Tablet) 1 - 2 tab PO Q4HPRN Tramadol [Ultram] 25 mg PO Q6H PRN tablet PRN Reason: Pain
[2017-03-12] MEDS: INSULIN DETEMIR 100unit/ml INJECTION SQ SCH (21:18)
[2017-03-12] MEDS: MIRTAZAPINE 15 MG TABLET PO SCH (21:18)
[2017-03-12 21:53] VITALS: O2SAT 98
[2017-03-13] MEDS: ACETAMINOPHEN 500 MG TABLET PO PRN (03:09)
[2017-03-13] MEDS: SUCRALFATE 1 GM TABLET PO SCH ×2 (05:45→11:13)
[2017-03-13] MEDS: BUMETANIDE 0.5 MG TABLET PO SCH (08:56)
[2017-03-13] MEDS: DOCUSATE SODIUM 100 MG CAPSULE PO SCH (08:57)
[2017-03-13] MEDS: CALCIUM 500 + VIT D 200 TABLET PO SCH (08:57)
[2017-03-13] MEDS: CARVEDILOL 12.5 MG TABLET PO SCH (08:57)
[2017-03-13] MEDS: AMLODIPINE 2.5 MG TABLET PO SCH (08:58)
[2017-03-13] MEDS: ASCORBIC ACID 500 MG TABLET PO SCH (08:58)
[2017-03-13] MEDS: AMIODARONE 200 MG TABLET PO SCH (08:58)
[2017-03-13] MEDS: LISINOPRIL 2.5 MG TABLET PO SCH (08:58)
[2017-03-13] MEDS: NEOMYCIN/POLYMYXIN/BACITRACIN OINT PACKET TP SCH (08:59)
[2017-03-13] MEDS: VITAMIN E 1,000 UNIT CAPSULE PO SCH (08:59)
[2017-03-13] MEDS: INSULIN ASPART 100unit/ml INJECTION SQ SCH ×2 (09:05→12:09)
[2017-03-13 09:37] VITALS: BP 133/65; PULSE 61; RESP 16; TEMP 97.8
--- NOTE | 2017-03-13 10:18 | IRU Progress Note ---
- Subjective/Serverity of Illness Angela was evaluated in the inpatient rehabilitation unit. She is anxious to go home and states that she will be able to care for herself. She feels as though she is safe for self care. Her appetite is reasonably good. She requires oxygen 24 hours daily and was on this prior to admission. We again advised her to avoid ongoing pressure to the right heel. Arrangements have been made for follow-up in the wound clinic in this regard. Update on medical issues as follows: 1. Infected wounds (right distal medial foot, left lateral malleolus) with recent sepsis. Wounds were inspected yesterday. They are clean at this time. The right heel has a blister. Wound clinic will be arranged for follow-up. 2. Diabetes mellitus, insulin controlled. But sugars are reviewed and are stable. 3. COPD with chronic hypoxemia. No change in her chronic dyspnea with activity. She is requiring supplemental oxygen chronically. Exam Vital Signs: Temperature 97.8 F 03/13/17 08:00 Pulse Rate 61 03/13/17 08:00 Respiratory Rate 16 03/13/17 08:00 Blood Pressure 133/65 03/13/17 08:00 Pulse Oximetry 98 03/13/17 08:00 Height/Weight/BMI: Height 1.6 m Weight 76.1 kg Body Mass Index 30.1 Comments: The patient is awake, alert and oriented and in no acute distress. Pupils are equal. The neck is supple. Chest: Clear to auscultation bilaterally with some decreased breath sounds. However no rhonchi and no wheezes/rales are noted. Cor: RR with no gallop, click nor murmur Abd: soft with normo-active bowel sounds. There are no masses, no tenderness and no guarding. Extremities: There is no edema noted. Wounds were inspected yesterday. They are clean. Has a blister on the right heel.. Results IRU - Labs Labs: Potassium remains slightly elevated at 5.1. She will be instructed to avoid potassium-containing foods. 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 She is on doxycycline. Local care has been instituted. She will follow-up with wound clinic. 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 DVT Prophylaxis: SCD's Resuscitation Status: Do Not Resuscitate - Course Hospital Course: Rai Chowdary MD: 03/07/17 09:55 She is doing well with therapy. Blood sugars are monitored and are stable. She does have some dyspnea with activity. A few crackles in the bases are noted. 03/11/17 14:50 Continues to progress with therapy. She is modified independent for upper body dressing and standby assistance for lower body dressing. Anticipate dismissal this week with home health assistance. 03/12/17 10:38 She continues to improve. She feels though she can't take care of herself at home. Anticipate dismissal tomorrow. Potassium of 5.5 noted and have discussed. Right heel ulcer will be evaluated by me today. Wound care has also been consulted. 03/13/17 10:18 The patient is stable and looks forward to going home. Potassium improved at 5.1. Wound care follow-up has been arranged. She will be instructed in a low potassium diet. - Interventions to Obtain Goals PT Treatment Plan: Balance/Proprioception, Functional Activities, Gait Training , Patient/Family Education, Therapeutic Exercise OT Treatment Plan: ADL (Basic Care), Balance Training, IADL, Pt./Family Education, Ther. Exercise for ADL
--- NOTE | 2017-03-13 10:25 | Discharge Instructions ---
Discharge Plan - Med Rec/Dispo Referrals/Follow Up: Wound, Clinic [Other] (Wound Clinic on 03/20/17 at 1:30 pm for follow-up. [facility] [address] [place] [address] [place] [address]) Ernst Newman MD [Physician] - (Dr. Anastacia Newman on 03/14/17 at 2:00 pm for follow-up. [facility] [address] [place] [address]) Rachel Dietz DO [Family Provider] - (Dr. Guzman Dietz on 03/19/17 at 10:00 am for Hosp. follow-up. [address] [place] [address]) Prescriptions: New Bumetanide Tab [Bumex Tab] 0.5 mg PO DAILY #30 tab Continue Ascorbic Acid 500 mg PO DAILY #0 Carvedilol 12.5 mg PO BID #0 guaiFENesin [Mucinex] 600 mg PO BID PRN #0 PRN Reason: PRN ORDERS Acetaminophen [Acetaminophen 8 Hour] 650 mg PO DAILY PRN #0 PRN Reason: PAIN Amiodarone [Pacerone] 200 mg PO DAILY #30 tab Vitamin E 1,000 unit PO DAILY Mupirocin Cream [Bactroban 2% Cream] 1 applicatio TOP TID Mirtazapine [Remeron] 15 mg PO HS Lisinopril [Prinivil] 2.5 mg PO DAILY diphenhydrAMINE HCl [Benadryl] 25 mg PO Q6H PRN #0 PRN Reason: ITCHING Lisinopril 2.5 mg PO HS #0 Amlodipine Besylate 2.5 mg PO DAILY #0 Calcium Carbonate/Vitamin D3 [Calcium 600-Vit D3 200 Tablet] 1 tab PO BID #0 Docusate Sodium [Colace] 100 mg PO TID #0 Insulin Aspart [NovoLOG] 4 unit SQ WB #0 Insulin Aspart [NovoLOG] 6 unit SQ WL #0 Insulin Detemir [Levemir] 20 unit SQ HS #0 Ipratropium/Albuterol Sulfate [Iprat-Albut 0.5-3(2.5) mg/3 ml] 1 vial AEROSOL QID PRN #0 PRN Reason: PRN ORDERS LORazepam [Lorazepam] 0.5 - 1 mg PO TID PRN #0 PRN Reason: ANXIETY Polyethylene Glycol 3350 [Miralax] 17 g PO DAILY PRN #0 PRN Reason: CONSTIPATION Bisacodyl 10 mg RECTALLY DAILY PRN #0 PRN Reason: CONSTIPATION Insulin Aspart [NovoLOG] 4 unit SQ WS #0 Sucralfate [Carafate] 1 g PO ACHS #56 tab [place]-3 Fatty Acids [Fish Oil Concentrate] 1,000 mg PO TID Albuterol Neb (0.083%) [Proventil Neb (0.083%)] 2.5 mg AEROSOL Q6HR Yves/Polym/Bacitracin Oint Pckt [Neosporin] 1 applic Discontinued Guaifenesin/Dextromethorphan [Robitussin Cough-Chest Dm Liq] 5 ml PO Q4HR Potassium Chloride [K-Dur] 1 tab PO DAILY Bumetanide 0.5 mg PO BID Hydrocodone/Acetaminophen ([place] 5-325 Tablet) 1 - 2 tab PO Q4HPRN Levofloxacin [Levaquin] 750 mg PO Q48H #2 tablet Milk of Magnesia [Mom] 30 ml PO DAILY PRN udc PRN Reason: Constipation Tramadol [Ultram] 25 mg PO Q6H PRN tablet PRN Reason: Pain Doxycycline [Vibramycin] 100 mg PO BIDWM 4 Days tablet Discharge Instructions/Outpatient Orders: Provider Discharge Instructions Location: Determined By Patient - Disposition [address] [place] [address]
--- NOTE | 2017-03-13 13:41 | Discharge Summary ---
Discharge Information Date of admission: 03/06/17 16:08 Anticipated date of discharge: 03/13/17 Attending Physician: Rai Chowdary MD Primary care physician: Rachel Dietz DO Consults: 03/06/17 16:16 Wound Vein Clinic Consult [CONS] Routine 03/06/17 18:29 Physician Consult [CONS] Routine Consulting Provider: Vishnu Casiano Reason For Exam: Medical management Ordering Provider has Notified Treatment Counselor: Yes 03/07/17 11:26 Dietary Consult [CONS] Routine Comment: Reason For Exam: diabetes, esophageal CA, weight loss 03/13/17 10:19 Dietary Consult [CONS] Routine Comment: Reason For Exam: Instruct in low K+ diet - Discharge Diagnosis (1) Diabetic foot ulcers Status: Chronic Discharge Diagnosis: Diabetic foot ulcers, bilateral feet, infected acutely 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 Status: Acute Discharge Diagnosis: Diabetes mellitus type 2 with atherosclerosis of arteries of extremities, with 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 Ball is a 81-year-old white female whose primary care physician is Dr. Dietz. She was admitted to acute care on February [address] Newman. She had a positive blood culture for gram-negative cande obtained the day prior to admission. She was noted to have bilateral foot ulcers. While on acute care she was treated with IV fluids for sepsis. Source of infection was felt to be either the infected foot ulcers or the Port-A-Cath which has been in place for chemotherapy for her esophageal cancer. She was seen in consultation by Dr. Afua Fernandez, infectious disease. While on acute care the Port-A-Cath was removed. The foot ulcers were evaluated and treated by wound care. She was treated with intravenous antibiotics. MRSA was cultured from the foot ulcer. She was felt to be a good candidate for acute rehabilitation for strengthening and improvement in ADLs. She was transferred to rehabilitation on 03/06/2017. Hospital Course This is a general summary of the patient's hospital course. For more details refer to the complete medical record. While on acute rehabilitation the patient was monitored with regard to frequent blood sugar checks as well as vital signs etc. She continued her home oxygen which she uses 24 hours daily. She tolerated therapy well. She was able to eat and drink adequately. Her blood sugars were reasonably well controlled on multiple doses of insulin daily. She had no further evidence of fever nor elevated white count. The foot ulcers were dressed and treated appropriately by the rehabilitation nursing staff as well as by wound care. She did develop a new blister on the right heel. This was evaluated. Dressing was placed. She is using a protective boot on that side. She does have evidence of markedly reduced arterial blood supply in both lower extremities based on absence of pulses. Wound healing is not at all insured. She was seen by occupational therapy on rehabilitation. Eating was at modified independent functioning. Grooming was standby assistance initially and standby assistance subsequently. Bathing assistance was contact-guard assistance initially and standby assistance subsequently. Upper body dressing was initially standby assistance and ultimately independent functioning. Lower body dressing with standby assistance initially and ultimately modified independent functioning. Toilet transfers were initially contact-guard assistance and subsequently modified independent functioning. Bed/chair/wheelchair transfers were initially contact-guard assistance and then modified independent functioning ultimately. She was seen in consultation by physical therapy who worked with her. Bed/chair/ wheelchair transfers for physical therapy were modified independent functioning initially and subsequently. Toilet assist was ultimately modified independent functioning. Car transfers were modified independent with a 4 wheeled walker. She was able to ambulate with standby assistance initially at 373 feet and ultimately at 379 feet with modified independent functioning. She was able to climb 12 stairs with standby assistance. She was followed by the hospitalist service while on acute rehabilitation. She is dismissed in improved condition able to take care of herself safely at home on 03/13/2017. She will follow-up with Dr. Dietz. In addition we have arranged for wound clinic follow-up. Hospital course: 03/07/17 Impression Debility related to recent illness Hypernatremia- persistent Recent sepsis with bacteremia MRSA wound culture of right foot Esophageal cancer Diabetes COPD Hypertension History of atrial fibrillation Neuropathy Plan Agree with admission to IRU for further therapy and improved strengthening. The hospitalist services will continue to follow patient and medically manage comorbidities. Continue with Levaquin q 48 hours and doxycycline twice a day- course length through 03/10/17. Wound care consultation for management of right diabetic foot ulcer. Will monitor Accu-Cheks and continue with home regimen including NovoLog 4 units with breakfast, 6 units with lunch, 4 units with supper as well as Levemir 20 units at at bedtime. Continue on chronic cardiac medications including Coreg, Bumex, lisinopril. Continue to monitor routine electrolytes. Given persistent hypernatremia. Order placed to encourage oral intake. Also monitor renal function, Rn Outpatient Surgery today 1.3. Encourage work with PT and OT for ongoing strengthening Appreciate medical consultation, the hospitalist services will continue to follow patient and medically manage her existing comorbidities during her stay At time of discharge from the IRU follow-up appointments need to be made with Dr. Newman and Dr. Dietz 03/09/17 Bumex decreased to once a day as sodium persistently elevated. Recheck BMP tomorrow. Blood sugars stable. Blood pressure and HR stable. Continue with Levaquin q 48 hours and doxycycline twice a day- course length through 03/10/17 - tolerating antibiotics well. Time spent with patient: 25 - 35 minutes Discharge Plan - Med Rec/Dispo Referrals/Follow Up: Wound, Clinic [Other] (Wound Clinic on 03/20/17 at 1:30 pm for follow-up. Wound Clinic [address] [place] [address] [place] [address]) Ernst Newman MD [Physician] - (Dr. Anastacia Newman on 03/14/17 at 2:00 pm for follow-up. [facility] [address] [place] [address]) Rachel Dietz DO [Family Provider] - (Dr. Guzman Dietz on 03/19/17 at 10:00 am for Hosp. follow-up. [address] [place] [address]) Prescriptions: New Bumetanide Tab [Bumex Tab] 0.5 mg PO DAILY #30 tab Continue Ascorbic Acid 500 mg PO DAILY #0 Carvedilol 12.5 mg PO BID #0 guaiFENesin [Mucinex] 600 mg PO BID PRN #0 PRN Reason: PRN ORDERS Acetaminophen [Acetaminophen 8 Hour] 650 mg PO DAILY PRN #0 PRN Reason: PAIN Amiodarone [Pacerone] 200 mg PO DAILY #30 tab Vitamin E 1,000 unit PO DAILY Mupirocin Cream [Bactroban 2% Cream] 1 applicatio TOP TID Mirtazapine [Remeron] 15 mg PO HS Lisinopril [Prinivil] 2.5 mg PO DAILY diphenhydrAMINE HCl [Benadryl] 25 mg PO Q6H PRN #0 PRN Reason: ITCHING Lisinopril 2.5 mg PO HS #0 Amlodipine Besylate 2.5 mg PO DAILY #0 Calcium Carbonate/Vitamin D3 [Calcium 600-Vit D3 200 Tablet] 1 tab PO BID #0 Docusate Sodium [Colace] 100 mg PO TID #0 Insulin Aspart [NovoLOG] 4 unit SQ WB #0 Insulin Aspart [NovoLOG] 6 unit SQ WL #0 Insulin Detemir [Levemir] 20 unit SQ HS #0 Ipratropium/Albuterol Sulfate [Iprat-Albut 0.5-3(2.5) mg/3 ml] 1 vial AEROSOL QID PRN #0 PRN Reason: PRN ORDERS LORazepam [Lorazepam] 0.5 - 1 mg PO TID PRN #0 PRN Reason: ANXIETY Polyethylene Glycol 3350 [Miralax] 17 g PO DAILY PRN #0 PRN Reason: CONSTIPATION Bisacodyl 10 mg RECTALLY DAILY PRN #0 PRN Reason: CONSTIPATION Insulin Aspart [NovoLOG] 4 unit SQ WS #0 Sucralfate [Carafate] 1 g PO ACHS #56 tab [place]-3 Fatty Acids [Fish Oil Concentrate] 1,000 mg PO TID Albuterol Neb (0.083%) [Proventil Neb (0.083%)] 2.5 mg AEROSOL Q6HR Yves/Polym/Bacitracin Oint Pckt [Neosporin] 1 applic Discontinued Guaifenesin/Dextromethorphan [Robitussin Cough-Chest Dm Liq] 5 ml PO Q4HR Potassium Chloride [K-Dur] 1 tab PO DAILY Bumetanide 0.5 mg PO BID Hydrocodone/Acetaminophen ([place] 5-325 Tablet) 1 - 2 tab PO Q4HPRN Levofloxacin [Levaquin] 750 mg PO Q48H #2 tablet Milk of Magnesia [Mom] 30 ml PO DAILY PRN udc PRN Reason: Constipation Tramadol [Ultram] 25 mg PO Q6H PRN tablet PRN Reason: Pain Doxycycline [Vibramycin] 100 mg PO BIDWM 4 Days tablet Discharge Instructions/Outpatient Orders: Provider Discharge Instructions Location: Determined By Patient
== END 2017-03-13 13:50 | disposition home health service (06) | DRG 945 ==
PROVIDERS: ADMIT Internal Medicine; ATTEND Internal Medicine

== ENCOUNTER 2017-05-16 00:38 | Inpatient (IN) ==
[2017-05-16] MEDS ORDERED: CEFTRIAXONE (ER USE ONLY) 1 GM in NS 100 ML IV ONE (00:51)
--- NOTE | 2017-05-16 00:51 | Emergency Department Report ---
Asthma HPI - General Stated Complaint: COPD Time Seen by Provider: 05/16/17 00:51 Source: patient, EMS Mode of arrival: EMS Limitations: physical limitation - History of Present Illness HPI Narrative: Patient is an 82-year-old female history of atrial fibrillation, COPD, no documented history of CHF however does take diuretics. Patient presents to the ER for evaluation of severe shortness of air. Patient chronically on oxygen at home, this afternoon patient had an episode of severe dyspnea oxygen saturations dropped into the high 70s, family turned off oxygen were unable to get above 86%, however patient felt "better", so was continue to monitor home. Patient had 2nd episode of severe dyspnea, EMS was called. On arrival EMS with oxygen saturations on 6 L by nasal cannula in the 60s, patient did have a known history of COPD MS thought patient was wheezing significantly and tight so patient was given 125 Solu-Medrol and albuterol 2 in the ambulance. Patient was unable to finish complete sentences at that time. On arrival patient is still receiving 2nd breathing treatment, tachypneic, some frothing at the lips. Patient hypertensive tachycardic satting 87% on nasal cannula/nebulized albuterol complaint: shortness of breath Onset (ago): hour(s) Severity: severe - Related Data Home Medications Medication Instructions Recorded Confirmed Ascorbic Acid 500 mg PO DAILY #0 08/03/15 03/07/17 diphenhydrAMINE HCl [Benadryl] 25 mg PO Q6H PRN #0 08/03/15 03/07/17 Lisinopril 2.5 mg PO HS #0 07/20/16 03/07/17 Amlodipine Besylate 2.5 mg PO DAILY #0 07/25/16 03/07/17 Calcium Carbonate/Vitamin D3 1 tab PO BID #0 07/25/16 03/07/17 [Calcium 600-Vit D3 200 Tablet] Carvedilol 12.5 mg PO BID #0 07/25/16 03/07/17 Docusate Sodium [Colace] 100 mg PO TID #0 07/25/16 03/07/17 Insulin Aspart [NovoLOG] 4 unit SQ WB #0 07/25/16 03/07/17 Insulin Aspart [NovoLOG] 6 unit SQ WL #0 07/25/16 03/07/17 Insulin Detemir [Levemir] 20 unit SQ HS #0 07/25/16 03/07/17 Ipratropium/Albuterol Sulfate 1 vial AEROSOL QID PRN #0 07/25/16 03/07/17 [Iprat-Albut 0.5-3(2.5) mg/3 ml] LORazepam [Lorazepam] 0.5 - 1 mg PO TID PRN #0 07/25/16 03/07/17 Polyethylene Glycol 3350 [Miralax] 17 g PO DAILY PRN #0 07/25/16 03/07/17 guaiFENesin [Mucinex] 600 mg PO BID PRN #0 07/25/16 03/07/17 Acetaminophen [Acetaminophen 8 650 mg PO DAILY PRN #0 08/17/16 03/07/17 Hour] Bisacodyl 10 mg RECTALLY DAILY PRN #0 08/17/16 03/07/17 Insulin Aspart [NovoLOG] 4 unit SQ WS #0 08/17/16 03/07/17 Albuterol Neb (0.083%) [Proventil 2.5 mg AEROSOL Q6HR 02/27/17 03/07/17 Neb (0.083%)] Lisinopril [Prinivil] 2.5 mg PO DAILY 02/27/17 03/07/17 Mirtazapine [Remeron] 15 mg PO HS 02/27/17 03/07/17 Mupirocin Cream [Bactroban 2% 1 applicatio TOP TID 02/27/17 03/07/17 Cream] Fisher-3 Fatty Acids [Fish Oil 1,000 mg PO TID 02/27/17 03/07/17 Concentrate] Vitamin E 1,000 unit PO DAILY 02/27/17 03/07/17 Yves/Polym/Bacitracin Oint Pckt 1 applicatio 03/07/17 [Neosporin] Previous Rx's Medication Instructions Recorded Amiodarone [Pacerone] 200 mg PO DAILY #30 tab 08/22/16 Sucralfate [Carafate] 1 g PO ACHS #56 tab 08/22/16 Bumetanide Tab [Bumex Tab] 0.5 mg PO DAILY #30 tab 03/12/17 Allergies Allergy/AdvReac Type Severity Reaction Status Date / Time sulfamethoxazole Allergy Unknown hives Verified 05/16/17 01:10 trimethoprim Allergy Unknown HIVES Verified 05/16/17 01:10 niacin AdvReac Intermediate HIVES Verified 05/16/17 01:10 Review of Systems Constitutional: Reports: weakness. Denies: fever, chills Eyes: Denies: eye discharge, vision change ENT: Denies: throat pain, dental pain Cardiovascular: Reports: dyspnea on exertion. Denies: chest pain Respiratory: Reports: cough, dyspnea, wheezes Gastrointestinal: Denies: abdominal pain, nausea, vomiting Genitourinary: Denies: dysuria, frequency Neurological: Denies: headache, weakness Psychiatric: Denies: anxiety, depression PFSH Patient Stated Medical History Hearing Loss Yes: hearing aids Cardiac Arrhythmia Yes: afib Congestive Heart Failure Yes Hypertension Yes Chronic Obstructive Pulmonary Yes Disease (COPD) Sleep Apnea Yes Diabetes Mellitus Type 1 Yes Diabetes Mellitus Type 2 Yes Constipation Yes Gastroesophageal Reflux Yes Disease Hx Incontinence Yes Hx Urinary Tract Infection Yes Cellulitis Yes: foot MRSA Yes Sepsis Yes Other Yes: removal of PAC Rt chest Clinic Medical History (Last Updated 02/11/17 @ 18:53 by Zoe Rodriguez [facility]) Diabetes (Chronic Medical) Heart disease (Chronic Medical) Neuropathy (Chronic Medical) Surgical History: Bilateral cataract extraction-2006. Appendectomy. Hysterectomy-2003. Cystoscopy 2008. Cardiac catheter-2008. EGD and diagnosis of esophageal cancer-2007. Port-A-Cath placement-2007. Bilateral toes amputations - Social History Smoking status: Former smoker Substance use type: does not use Current residence: Apartment/Private Home Physical Exam - General General appearance: alert, in distress - Eye Eye exam: Present: PERRL, EOMI - ENT ENT exam: Present: mucous membranes moist - Chest Chest inspection: Present: symmetric chest wall rise. Absent: tenderness - Respiratory Respiratory exam: Present: respiratory distress, wheezes, accessory muscle use, crackles - Cardiovascular Cardiovascular exam: Present: normal rhythm, tachycardia, normal heart sounds. Absent: regular rate (faint bibasilar) - Abdominal Exam Abdominal exam: Present: soft, normal bowel sounds. Absent: distention, tenderness - Skin Skin exam: Present: warm, dry - Neurological Exam Neurological exam: Present: alert, oriented X3 - Psychiatric Psychiatric exam: Present: normal affect, normal mood Course Vital Signs Temperature 98.8 F 05/16/17 00:40 Pulse Rate 95 05/16/17 00:40 Respiratory Rate 36 H 05/16/17 00:40 Blood Pressure 202/88 H 05/16/17 00:40 Pulse Oximetry 83 L 05/16/17 00:40 Temperature 98.0 F 05/16/17 02:30 Pulse Rate 87 05/16/17 02:30 Respiratory Rate 28 H 05/16/17 02:30 Blood Pressure 154/67 H 05/16/17 02:00 Pulse Oximetry 99 05/16/17 02:30 Dyspnea - MDM Narrative Medical decision making narrative: Patient placed on BiPAP on arrival, with marked improvement in symptoms over the next 30 minutes. Patient able to speak in complete sentences blood pressure improved heart rate improved oxygen saturations improved. Laboratories consistent with CHF exacerbation, however given the severity of chest x-ray, pneumonia cannot be completely excluded. Patient given Rocephin in the ER for community-acquired pneumonia, sepsis markers were negative. Hospitalist service was contacted and they will admit patient to the CCU on BiPAP for CHF exacerbation. Patient given 1 mg of Bumex IV in the emergency department - Differential Diagnosis Differential diagnosis: Likely: Acute exacerbation, PE, Pneumonia, COPD exacerbation, Pulmonary edema systolic, Pulmonary edema dystolic, ARDS, Pneumothorax - Medical Records Attestation: I reviewed the patient's medical records. - Lab Data Attestation: I reviewed the patient's lab results. Result diagrams: 05/16/17 01:35 05/16/17 01:35 Lab Results 05/16/17 05/16/17 05/16/17 Range/Units 01:35 01:35 01:35 WBC 13.3 H D (4.5-11.0) T/MM3 RBC 3.70 L (4.00-5.20) M/MM3 Hgb 12.0 (12-16) GM/DL Hct 38.1 (36-46) % MCV 103.0 H (80-100) UM3 MCH 32.4 (26-34) UUG MCHC 31.5 (31-37) GM/DL RDW Std Deviation 54.4 H (36.9-50.2) FL Plt Count 189 (130-400) T/MM3 MPV 11.1 (9.4-12.4) UM3 Immature Gran % (Auto) 1.0 H (0.0-0.5) % Neut % (Auto) 76.4 H (33-66) % Lymph % (Auto) 12.3 L (23-45) % [place] % (Auto) 9.6 H (0-9.0) % Eos % (Auto) 0.4 (0-4) % Baso % (Auto) 0.3 (0-2) % Neut # (Auto) 10.2 H (1.8-7.7) T/MM3 Lymph # (Auto) 1.6 (1-4.8) T/MM3 [place] # (Auto) 1.3 H (0-0.8) T/MM3 Eos # (Auto) 0.1 (0-0.5) T/MM3 Baso # (Auto) 0.0 (0-0.2) T/MM3 Abs Immat Gran (auto) 0.13 H (0.00-0.03) T/MM3 INR 0.99 (0.99-1.21) D-Dimer 262 H (0-230) NG/ML ABG pH (7.350-7.450) ABG pCO2 (34-45) MMHG ABG pO2 (80-100) MMHG ABG HCO3 (22-26) MEQ/L ABG Total CO2 (23-27) MEQ/L ABG O2 Saturation (95.0-98.0) % ABG Base Excess (-2.0-2.0) MMOL/L O2 Delivery Method FiO2 % Turbidity < 20 (0-20) Sodium 145 H (134-144) MEQ/L Potassium 5.0 (3.6-5) MEQ/L Chloride 111 H (98-107) MEQ/L Carbon Dioxide 24 (22-30) MEQ/L Anion Gap 10 (5-15) MEQ/L BUN 31.0 H (7-17) MG/DL Creatinine 1.2 (0.7-1.2) MG/DL GFR Calculation 43 BUN/Creatinine Ratio 26 (6-26) RATIO Glucose 270 H (65-110) MG/DL Calculated Osmolality 296 H (261-280) MOSM/KG Calcium 8.5 (8.4-10.2) MG/DL Total Bilirubin 0.60 (0.20-1.30) MG/DL Icterus Index < 2 (0-7) AST 43 H (14-36) U/L ALT 69 H (9-52) U/L Alkaline Phosphatase 91 (38-126) U/L Troponin I 0.038 (0-0.12) ng/ml B-Natriuretic Peptide 79918 H (0-175) pg/mL Total Protein 7.0 (6.3-8.2) G/DL Albumin 3.8 (3.5-5.0) G/DL Globulin 3.2 (2.4-3.6) G/DL Albumin/Globulin Ratio 1.2 (1.1-2.2) RATIO Plasma Lactate 1.3 (0.6-2.2) MMOL/L Procalcitonin NG/ML Specimen Hemolysis < 15 (0-25) 05/16/17 05/16/17 Range/Units 01:35 01:40 WBC (4.5-11.0) T/MM3 RBC (4.00-5.20) M/MM3 Hgb (12-16) GM/DL Hct (36-46) % MCV (80-100) UM3 MCH (26-34) UUG MCHC (31-37) GM/DL RDW Std Deviation (36.9-50.2) FL Plt Count (130-400) T/MM3 MPV (9.4-12.4) UM3 Immature Gran % (Auto) (0.0-0.5) % Neut % (Auto) (33-66) % Lymph % (Auto) (23-45) % [place] % (Auto) (0-9.0) % Eos % (Auto) (0-4) % Baso % (Auto) (0-2) % Neut # (Auto) (1.8-7.7) T/MM3 Lymph # (Auto) (1-4.8) T/MM3 [place] # (Auto) (0-0.8) T/MM3 Eos # (Auto) (0-0.5) T/MM3 Baso # (Auto) (0-0.2) T/MM3 Abs Immat Gran (auto) (0.00-0.03) T/MM3 INR (0.99-1.21) D-Dimer (0-230) NG/ML ABG pH 7.290 L (7.350-7.450) ABG pCO2 53 H (34-45) MMHG ABG pO2 78 L (80-100) MMHG ABG HCO3 26 (22-26) MEQ/L ABG Total CO2 27.1 H (23-27) MEQ/L ABG O2 Saturation 94.0 L (95.0-98.0) % ABG Base Excess -1.7 (-2.0-2.0) MMOL/L O2 Delivery Method Bpap, % FiO2 % 60 Turbidity (0-20) Sodium (134-144) MEQ/L Potassium (3.6-5) MEQ/L Chloride (98-107) MEQ/L Carbon Dioxide (22-30) MEQ/L Anion Gap (5-15) MEQ/L BUN (7-17) MG/DL Creatinine (0.7-1.2) MG/DL GFR Calculation BUN/Creatinine Ratio (6-26) RATIO Glucose (65-110) MG/DL Calculated Osmolality (261-280) MOSM/KG Calcium (8.4-10.2) MG/DL Total Bilirubin (0.20-1.30) MG/DL Icterus Index (0-7) AST (14-36) U/L ALT (9-52) U/L Alkaline Phosphatase (38-126) U/L Troponin I (0-0.12) ng/ml B-Natriuretic Peptide (0-175) pg/mL Total Protein (6.3-8.2) G/DL Albumin (3.5-5.0) G/DL Globulin (2.4-3.6) G/DL Albumin/Globulin Ratio (1.1-2.2) RATIO Plasma Lactate (0.6-2.2) MMOL/L Procalcitonin 0.07 NG/ML Specimen Hemolysis (0-25) - Radiology Data Attestation: I reviewed the patient's radiology results. Chest x-ray: Bilateral infiltrates versus severe edema Critical Care Time Critical Care Time: Yes Total Critical Care Time: 42 Attestation: The high probability of a clinically significant, sudden or life threatening deterioration of the cardiopulmonary system(s) required my full and direct attention, intervention and personal management. The aggregate critical care time was 42 minutes. This time is in addition to time spent performing reported procedures but includes the following: X Data Review and interpretation X Patient assessment and monitoring of vital signs X Documentation X Medication orders and management Disposition Clinical Impression: Congestive heart failure Qualifiers: Congestive heart failure type: combined Congestive heart failure chronicity: acute on chronic Qualified Code(s): I50.43 - Acute on chronic combined systolic (congestive) and diastolic (congestive) heart failure Disposition: 02 To [facility] Acute Care Condition: Stable Prescriptions: No Action Ascorbic Acid 500 mg PO DAILY #0 Carvedilol 12.5 mg PO BID #0 guaiFENesin [Mucinex] 600 mg PO BID PRN #0 PRN Reason: PRN ORDERS Acetaminophen [Acetaminophen 8 Hour] 650 mg PO DAILY PRN #0 PRN Reason: PAIN Amiodarone [Pacerone] 200 mg PO DAILY #30 tab Vitamin E 1,000 unit PO DAILY Mupirocin Cream [Bactroban 2% Cream] 1 applicatio TOP TID Mirtazapine [Remeron] 15 mg PO HS Lisinopril [Prinivil] 2.5 mg PO DAILY diphenhydrAMINE HCl [Benadryl] 25 mg PO Q6H PRN #0 PRN Reason: ITCHING Lisinopril 2.5 mg PO HS #0 Amlodipine Besylate 2.5 mg PO DAILY #0 Calcium Carbonate/Vitamin D3 [Calcium 600-Vit D3 200 Tablet] 1 tab PO BID #0 Docusate Sodium [Colace] 100 mg PO TID #0 Insulin Aspart [NovoLOG] 4 unit SQ WB #0 Insulin Aspart [NovoLOG] 6 unit SQ WL #0 Insulin Detemir [Levemir] 20 unit SQ HS #0 Ipratropium/Albuterol Sulfate [Iprat-Albut 0.5-3(2.5) mg/3 ml] 1 vial AEROSOL QID PRN #0 PRN Reason: PRN ORDERS LORazepam [Lorazepam] 0.5 - 1 mg PO TID PRN #0 PRN Reason: ANXIETY Polyethylene Glycol 3350 [Miralax] 17 g PO DAILY PRN #0 PRN Reason: CONSTIPATION Bisacodyl 10 mg RECTALLY DAILY PRN #0 PRN Reason: CONSTIPATION Insulin Aspart [NovoLOG] 4 unit SQ WS #0 Sucralfate [Carafate] 1 g PO ACHS #56 tab Fisher-3 Fatty Acids [Fish Oil Concentrate] 1,000 mg PO TID Albuterol Neb (0.083%) [Proventil Neb (0.083%)] 2.5 mg AEROSOL Q6HR Yves/Polym/Bacitracin Oint Pckt [Neosporin] 1 applicatio Bumetanide Tab [Bumex Tab] 0.5 mg PO DAILY #30 tab Referrals: Rachel Dietz DO [Family Provider] - Time of Disposition: 02:32 - Seen By: physician
[2017-05-16] MEDS: SALINE FLUSH 10ml SYRINGE IVF PRN ×3 (01:38→14:54)
[2017-05-16] MEDS ORDERED: BUMETANIDE 2.5mg/10ml INJECTION IVP ONE (02:19)
[2017-05-16] MEDS ORDERED: GLUCOSE ORAL GEL 40% 37.5gm PO PRN (03:04)
[2017-05-16 04:54] VITALS: BMI 30.8
[2017-05-16] MEDS ORDERED: CEFTRIAXONE 1 G in NS 100 ML IV SCH (04:54)
[2017-05-16] MEDS ORDERED: AZITHROMYCIN IV 500 MG in NS 250ml 250 ML IV SCH (04:54)
[2017-05-16] MEDS ORDERED: MORPHINE SULFATE 2mg INJECTION IVP PRN (04:54)
[2017-05-16] MEDS: ALBUTEROL/IPRATROPIUM 2.5mg-0.5mg/3ml NEB AEROSOL SCH ×3 (05:07→19:36)
[2017-05-16] MEDS: BUDESONIDE INH.SOLN 0.5mg/2ml NEB AEROSOL SCH ×2 (05:07→19:36)
[2017-05-16] MEDS: METHYLPREDNISOLONE SOD SUCC 125mg/2ml INJECTION IVP SCH ×4 (05:15→20:53)
[2017-05-16] MEDS: INSULIN ASPART 100unit/ml INJECTION SQ PRN ×4 (05:16→20:52)
[2017-05-16] MEDS ORDERED: FentaNYL 100 MCG/2 ML INJECTION IVP ONE (06:30)
--- NOTE | 2017-05-16 07:05 | History & Physical Report ---
History of Present Illness Date: 05/16/17 Chief complaint: short of breath HPI: This is a 82 y/o female who presents with increase short of breath today. The patient denies fever, chills or sweats. The patient is found by EMS to have sats 60%? She is started on solumedrol en rout . In the ED the patient is started on biPAp with an initial abg demonstrating pH 7.29 pco2 53 and paO2 78. The patient ekg demonstrate old LBBB. The initial troponin is .03. CXR demonstrates changes c/w mild heart failure. At this time the patient is admitted into the ICU with an exacerbation of copd with mild congestive heart failure. Patient is on bipap currently and is not able to provide much more history other that what the ED provider was able to obtain Review of Systems Review of systems: no significant ROS can be obtained in this patient who is not able to provide information at this time. see ed note for what is available PFSH Patient Stated Medical History Hearing Loss Yes: hearing aids Cardiac Arrhythmia Yes: afib Congestive Heart Failure Yes Hypertension Yes Chronic Obstructive Pulmonary Yes Disease (COPD) Sleep Apnea Yes Diabetes Mellitus Type 2 Yes Gastroesophageal Reflux Yes Disease Hx Incontinence Yes Hx Urinary Tract Infection Yes Cellulitis Yes: foot MRSA Yes Sepsis Yes Other Yes: removal of PAC Rt chest Clinic Medical History (Last Updated 02/11/17 @ 18:53 by Zoe Rodriguez Eula) Diabetes (Chronic Medical) Heart disease (Chronic Medical) Neuropathy (Chronic Medical) Surgical History: Bilateral cataract extraction-2006. Appendectomy. Hysterectomy-2003. Cystoscopy 2008. Cardiac catheter-2008. EGD and diagnosis of esophageal cancer-2007. Port-A-Cath placement-2007. Bilateral toes amputations - Social History Smoking status: Former smoker Medications Home Medications Medication Instructions Recorded Confirmed Type Ascorbic Acid 500 mg PO DAILY #0 08/03/15 05/16/17 History diphenhydrAMINE HCl [Benadryl] 25 mg PO QID PRN #0 08/03/15 05/16/17 History Lisinopril 2.5 mg PO DAILY #0 07/20/16 05/16/17 History Amlodipine Besylate 2.5 mg PO DAILY #0 07/25/16 05/16/17 History Calcium Carbonate/Vitamin D3 1 tab PO TID #0 07/25/16 05/16/17 History [Calcium 600-Vit D3 200 Tablet] Carvedilol 12.5 mg PO BID #0 07/25/16 05/16/17 History Docusate Sodium [Colace] 100 mg PO BID PRN #0 07/25/16 05/16/17 History Insulin Aspart [NovoLOG] 4 unit SQ WB #0 07/25/16 05/16/17 History Insulin Aspart [NovoLOG] 5 unit SQ WL #0 07/25/16 05/16/17 History Insulin Detemir [Levemir] 10 unit SQ HS #0 07/25/16 05/16/17 History Ipratropium/Albuterol Sulfate 1 vial AEROSOL QID PRN #0 07/25/16 03/07/17 History [Iprat-Albut 0.5-3(2.5) mg/3 ml] LORazepam [Lorazepam] 0.5 mg PO Q4H PRN #0 07/25/16 05/16/17 History Polyethylene Glycol 3350 [Miralax] 17 g PO DAILY PRN #0 07/25/16 03/07/17 History guaiFENesin [Mucinex] 600 mg PO Q12H #0 07/25/16 05/16/17 History Acetaminophen [Acetaminophen 8 650 mg PO DAILY PRN #0 08/17/16 05/16/17 History Hour] Bisacodyl 10 mg RECTALLY DAILY PRN #0 08/17/16 05/16/17 History Insulin Aspart [NovoLOG] 5 unit SQ WS #0 08/17/16 05/16/17 History Albuterol Neb (0.083%) [Proventil 2.5 mg AEROSOL Q6HR 02/27/17 05/16/17 History Neb (0.083%)] Lisinopril [Prinivil] 2.5 mg PO DAILY 02/27/17 05/16/17 History Mirtazapine [Remeron] 15 mg PO HS 02/27/17 05/16/17 History Mupirocin Cream [Bactroban 2% 1 applicatio TOP TID 02/27/17 03/07/17 History Cream] Blythe-3 Fatty Acids [Fish Oil 1,000 mg PO TID 02/27/17 05/16/17 History Concentrate] Vitamin E 400 unit PO DAILY 02/27/17 05/16/17 History Yves/Polym/Bacitracin Oint Pckt 1 applicatio 03/07/17 History [Neosporin] Doxycycline Monohydrate 100 mg PO DAILY 05/16/17 05/16/17 History Fenofibrate [Lofibra] 160 mg PO DAILY 05/16/17 05/16/17 History Ferrous Sulfate 325 mg PO TID 05/16/17 05/16/17 History Hydrocodone/Acetaminophen 1 tab PO Q4H PRN 05/16/17 05/16/17 History [Hydrocodon-Acetaminophen 5-325] Multivit-Min/Folic Acid/Biotin 1 tab PO DAILY 05/16/17 05/16/17 History [Women Multivit W-Biotin Gummy] Potassium Chloride [Klor-Con M20] 20 meq PO DAILY 05/16/17 05/16/17 History Prochlorperazine Maleate 10 mg PO Q6H PRN 05/16/17 05/16/17 History [Compazine] Sucralfate [Carafate] 1 g PO QID 05/16/17 05/16/17 History Allergies Allergy/AdvReac Type Severity Reaction Status Date / Time sulfamethoxazole Allergy Unknown hives Verified 05/16/17 01:10 trimethoprim Allergy Unknown HIVES Verified 05/16/17 01:10 niacin AdvReac Intermediate HIVES Verified 05/16/17 01:10 Exam Vital Signs: Temperature 98.1 F 05/16/17 03:15 Pulse Rate 75 05/16/17 04:15 Respiratory Rate 24 05/16/17 05:07 Blood Pressure 140/63 H 05/16/17 04:15 Pulse Oximetry 91 05/16/17 05:07 Telemetry Rhythm: Sinus Rhythm Telemetry Ectopy: Bundle Branch Block Height/Weight/BMI: Height 1.65 m Weight 84.1 kg Body Mass Index 30.8 - Constitutional Present: moderate distress - Routine HEENT Exam Head: Present: normocephalic, atraumatic Eye: Present: EOMI ENT: Present: mucous membranes dry - Routine Respiratory Exam Comments: very diminished, occasional rhonchi in bases bilaterally - Routine Cardiovascular Exam Present: RRR, no murmur - Routine Abdominal Exam Present: soft, normoactive bowel sounds, non distended - Routine Extremities Exam Present: edema, full ROM, pulses intact Comments: previous wounds on her feet that have been attended to by wound care. see nursing notes. - Routine Neurological Exam patient does not follow commands at this time. muscle tone is symetrical - Routine Psychiatric Exam Comments: somnolent but arouses to verbal and tactile stim Results - Labs CBC & Chem 7: 05/16/17 05:04 05/16/17 05:05 Labs: labs and x rays will be discussed below. 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 copd exacerbation acute POA: ususal therapy , iv steroids, nebs, no fluids , (? heart failure), bipap, see below 2. hypercapnic respirtory failure acute POA: bipap, repeat abg, inital mental status was good, now not as good, await am abg. note TV, minute vent look good , should improve 3. chronic with acute hypoxic resp failrue; on 40%, with diuresis hopeful to improve 4. chf acute POA; cxr concerning. bumex x 1 in ed. follwoup results before additional give. need to research more what EF has been docuemtned in the past 5. ckd 3 POA; monitor with diuresis 6. Bronchiits acute POA: rocephin, zitrhomax, cannot exclude the possibity of early pneumonia. Resuscitation Status: Do Not Resuscitate - Physician Narriative Physician: Nikky Braun MD Narriative: 05/16/17 14:38 Dr. Estevez's note reviewed. Mrs. Ball interviewed and examined. Her sisters provided supplemental history. CC: Difficulty breathing, confusion HPI: Mrs. Ball is an 82-year-old female with multiple chronic medical problems as outlined below. She had chemotherapy on Saturday, went to a wound care appointment yesterday and later in the day noticed she had cough productive of brown phlegm instituted usual yellow phlegm. She thinks phlegm had a little blood in it in the evening but doesn't describe feeling short of breath yesterday afternoon or early evening. She got up to go to the bathroom a little before midnight and was very short of breath describing her breathing is panting. Her sister reports she was hallucinating and didn't make any sense. EMS was summoned and found the patient on 6 L supplemental O2 with saturations in the 60s. Solu-Medrol was given in conjunction with breathing treatments in route to the hospital. Patient was described as being tachypnea and frothing at the mouth. ER records indicate the patient had an episode of dyspnea yesterday afternoon with hypoxia at which time oxygen saturation was in the high 70s and her sister increased oxygen flow rate to 6 L and symptoms improved at which time they elected to simply monitor symptoms at home-this event was not described to me although they're described their evening meal in great detail. BiPAP was initiated in the emergency room and the patient admitted to the intensive care unit. Chest x-ray demonstrated heart failure and diuresis initiated. PH/SH/FH: agree with that recorded above ROS: 10 point review EXAM: General- HEENT-PERRL, EOMI without nystagmus, conjunctiva clear, sclera anicteric, conjugate gaze, facial structures symmetric, oropharynx clear, neck supple and without adenopathy Lungs- Cardiac- Abd- Ext- Skin- Neuro- Psych- DATA: A/P: 05/16/17 15:06 Above continued- PH/SH/FH: agree with that recorded above with additions of diabetic neuropathy, paroxysmal atrial fibrillation, diastolic heart failure with ejection fraction 53% on echo 08/16, dyslipidemia, Charcot joints lower extremity, chronic kidney disease, stage III, history of obstructive sleep apnea without use of CPAP, DJD , past MRSA infection of the lower extremity, Port-A-Cath infection with MRSA February 2017. SH-tobacco use discontinued 2000, no history alcohol or illicit drug use. Patient lives with one of her sisters. Dr. Reynaga is her primary care physician and Dr. Newman her oncologist. She sees Dr. Leyva for cardiology. Patient confirms DO NOT RESUSCITATE status and reports that her sisters are her DPOA. FH-mother of cardiac disease at age 49, father of an ID at 80, a younger brother has asthma and one sister has Parkinson's disease and had a TIA in the past ROS: 10 point review positive only for symptoms listed in the history of present illness and reports of recent difficulty reading/decreased vision although I exam unremarkable. EXAM: General-NAD, talkative, alert; 97.8 respiratory rate 27, oxygen saturation 97% on 4 L, blood pressure 153/66 HEENT-as above Lungs-respirations nonlabored, good airflow, crackles at the right base posteriorly, no wheezing present Cardiac-regular rhythm, S1-S2; sinus rhythm on the monitor Abd-obese, soft, nontender, diminished bowel sounds Ext-without edema Skin-wounds present at the left ankle, right MTP joint, and right great toe-all are dressed Musculoskeletal-kyphosis, varus deformity at the knees and ankles bilaterally; degenerative deformities of the small joints of the hands Neuro-cranial nerves 3-12 intact, generalized motor weakness without tremor, decreased sensation below the knees to light touch although the patient reports she feels warmth below her knees, no drift of the upper extremities Psych-in good spirits, cooperative, pleasant DATA: White count 13.3-11.0, differential unremarkable on admission. Hemoglobin 12.0 with macrocytosis. Sodium 145, BUN 31, creatinine 1.2, AST 43, ALT 69. proBNP 09058, troponin 0.038-0.115 ABG on presentation /78/26 on BiPAP with FiO2 60% Lactic acid 1.3-1.6; procalcitonin 0.07 Respiratory viral swab negative for tested pathogens Chest x-ray reviewed by myself demonstrating cardiomegaly/pulmonary edema A/P: Acute hypoxic/hypercarbic respiratory failure Pulmonary edema Acute on chronic diastolic heart failure URI/bronchitis Lower extremity diabetic wounds-Proteus on culture R-foot 05/15/17 COPD Diabetes mellitus with neuropathy, chronic insulin use-A1c 5.05 Apr 2017 COPD CKD, stage III Continue diuresis, trend troponin; repeat echocardiogram. Supplemental oxygen and BiPAP as needed. Repeat blood gas this morning with improvement in pH/PCO2 overnight. Continue Rocephin and check sputum culture. Wound culture obtained yesterday with Proteus-should be cultured adequately with ceftriaxone. Insulins reinitiated with corrective insulin if needed. Renal function at baseline. Hospital Course Summary Disclaimer: The visit summary below is not to be considered part of the above Progress Note.
--- NOTE | 2017-05-16 07:25 | XRay Report ---
EXAM: XR chest 1V LOCATION OF DICTATION: [facility] HISTORY: dyspnea wheezing COMPARISON: February 27, 2017 FINDINGS: The heart is moderately enlarged. Moderate calcific atherosclerotic disease is noted. Left-sided dual-lead pacemaker in place with intact leads overlying the right atrium. There is prominence of the central pulmonary vasculature. There are bilateral interstitial/alveolar opacities likely reflecting pulmonary edema. There are small bilateral pleural effusions. Osseous structures are stable. Impression: 1. Moderate cardiomegaly with CHF and significant pulmonary edema suggested. .
[2017-05-16] MEDS: ENOXAPARIN 40 MG/0.4 ML INJECTION SQ SCH (08:55)
[2017-05-16] MEDS ORDERED: BISACODYL 10 MG SUPPOSITORY RECTALLY PRN (10:51)
[2017-05-16] MEDS ORDERED: METOCLOPRAMIDE 10mg/2ml INJECTION IVP PRN (10:57)
[2017-05-16] MEDS ORDERED: ALBUTEROL 2.5mg/3ml (0.083%) NEB AEROSOL PRN (10:57)
[2017-05-16] MEDS: CEFTRIAXONE 1 G in NS 100 ML IV SCH (13:18)
[2017-05-16] MEDS: AMIODARONE 200 MG TABLET PO SCH (13:19)
[2017-05-16] MEDS: SUCRALFATE 1 GM TABLET PO SCH ×3 (13:19→20:53)
[2017-05-16] MEDS: OMEGA-3 ACID ESTERS 1 GM CAPSULE PO SCH ×2 (14:54→20:53)
[2017-05-16] MEDS: INSULIN ASPART 100unit/ml INJECTION SQ SCH (17:35)
[2017-05-16] MEDS: CARVEDILOL 12.5 MG TABLET PO SCH (17:35)
[2017-05-16] MEDS: MIRTAZAPINE 15 MG TABLET PO SCH (20:53)
[2017-05-16] MEDS: FUROSEMIDE 40 MG/4 ML INJECTION IVP SCH (20:54)
[2017-05-16] MEDS ORDERED: INSULIN DETEMIR 100unit/ml INJECTION SQ SCH (21:00)
[2017-05-17] MEDS: CEFTRIAXONE 1 G in NS 100 ML IV SCH ×2 (01:20→13:47)
[2017-05-17] MEDS: ALBUTEROL/IPRATROPIUM 2.5mg-0.5mg/3ml NEB AEROSOL SCH ×4 (01:50→21:00)
[2017-05-17] MEDS: METHYLPREDNISOLONE SOD SUCC 125mg/2ml INJECTION IVP SCH ×3 (02:05→20:39)
[2017-05-17] MEDS: INSULIN ASPART 100unit/ml INJECTION SQ PRN ×3 (06:13→20:39)
[2017-05-17] MEDS: SUCRALFATE 1 GM TABLET PO SCH ×4 (06:14→20:38)
[2017-05-17] MEDS: BUDESONIDE INH.SOLN 0.5mg/2ml NEB AEROSOL SCH ×2 (08:50→21:00)
[2017-05-17] MEDS: AMIODARONE 200 MG TABLET PO SCH (09:03)
[2017-05-17] MEDS: AMLODIPINE 2.5 MG TABLET PO SCH (09:03)
[2017-05-17] MEDS: ENOXAPARIN 40 MG/0.4 ML INJECTION SQ SCH (09:04)
[2017-05-17] MEDS: INSULIN ASPART 100unit/ml INJECTION SQ SCH ×3 (09:14→17:53)
[2017-05-17] MEDS: CARVEDILOL 12.5 MG TABLET PO SCH ×2 (09:14→16:46)
[2017-05-17] MEDS: LISINOPRIL 2.5 MG TABLET PO SCH (09:15)
[2017-05-17] MEDS: OMEGA-3 ACID ESTERS 1 GM CAPSULE PO SCH ×3 (09:16→20:38)
[2017-05-17] MEDS: POLYETHYL GLYCOL 3350 17gm PACKET PO SCH (09:26)
[2017-05-17] MEDS: FUROSEMIDE 40 MG/4 ML INJECTION IVP SCH (10:30)
[2017-05-17] MEDS ORDERED: INSULIN ASPART 100unit/ml INJECTION SQ ONE (10:35)
--- NOTE | 2017-05-17 11:08 | XRay Report ---
Indication: chf PROCEDURE: XR chest 1V: Encounter: Initial Comparison: 05/16/2017 Findings: Has been interval improvement in the pulmonary edema with persistent cardiomegaly and pulmonary vascular congestion. There is also some left basilar atelectasis with probable small bilateral pleural effusions, left greater than right. There is a left subclavian dual-lead pacemaker in place, unchanged. No pneumothorax. The trachea is midline. Impression: Improved CHF with bibasilar atelectasis and small bilateral pleural effusions. .
--- NOTE | 2017-05-17 11:29 | Progress Note ---
- Date 05/17/17 Subjective: Mrs. Ball reports slight increased dyspnea last night compared to the day and that she felt as though she was panting occasionally. Head of the bed had to be raised part of the night to allow her to breathe more comfortably (she typically sleeps in a recliner chair at home) but she slept well and woke up feeling much better. She had minor heartburn yesterday which resolved but denies abdominal pain or nausea. She denies fever but was diaphoretic overnight. She denies chest pain or palpitations. Oxygen has titrated down to 3 L (chronically on 2 L at home) and rhythm remains paced predominantly. BiPAP was not needed overnight and respiratory therapy has initiated treatments with Acapella valve in addition to standard breathing treatments. Objective Vital signs: Temperature 97.4 F 05/16/17 23:57 Pulse Rate 74 05/17/17 10:01 Respiratory Rate 33 H 05/17/17 10:01 Blood Pressure 150/64 H 05/17/17 10:01 Pulse Oximetry 95 05/17/17 10:01 I/O 440/2735 weight down 4.4 kg from admission EXAM General-NAD, alert, talkative HEENT-conjunctiva clear, conjugate gaze, oropharynx clear, neck supple Lungs-respirations nonlabored, fair air flow, decreased breath sounds posteriorly but no crackles or wheezing. Cardiac-regular rhythm, S1-S2 Abd-soft, nontender Ext-without edema, wounds covered with duoderm dressings Neuro-MAEW Psych-calm, pleasant - Height/Weight/BMI: Height 1.65 m Weight 79.7 kg Body Mass Index 30.8 Results - Labs CBC & Chem 7: 05/17/17 04:47 05/17/17 04:47 Labs: S86, B1, L12, M1 Magnesium 2.2 Respiratory viral panel negative Microbiology Results: Microbiology 05/16/17 12:53 Sputum, Expectorated Gram Stain -few neutrophils, few epithelial cells, mixed chad 05/16/17 12:53 Sputum, Expectorated Sputum Culture - Preliminary Culture Initiated - Results Pending 05/15/17 wound culture right first metatarsal- moderate growth Proteus, moderate growth staph aureus - ABG Interpretation ABG results: 05/16/17 06:45 ABG pH 7.380 ABG pCO2 46 H ABG pO2 78 L ABG HCO3 27 H ABG Total CO2 28.6 H ABG O2 Saturation 95.0 ABG Base Excess 1.6 - ECG Data Tracing #1 I reviewed this ECG and interpreted as documented below: (today's EKG is primarily ventricularly paced and unchanged from yesterday.) - Imaging and Cardiology Chest x-ray Status: image reviewed by me (portable chest x-ray reveals cardiomegaly with significant improvement in pulmonary edema demonstrated yesterday, there are small bilateral pleural effusions present) Assessment and Plan (1) Acute respiratory failure with hypoxia and hypercapnia Current visit: Yes Status: Acute (2) Congestive heart failure Problem details: Acute/chronic diastolic Current visit: Yes Status: Acute (3) COPD exacerbation Current visit: Yes Status: Acute Assessment and Plan: Impression: Acute hypoxic/hypercarbic respiratory failure Pulmonary edema Acute on chronic diastolic heart failure URI/bronchitis Lower extremity diabetic wounds-Proteus/SA on culture R-foot 05/15/17 COPD with exacerbation Diabetes mellitus with neuropathy, chronic insulin use-A1c 5.05 Apr 2017 CKD, stage III Esophageal cancer, recent chemotherapy under care of Dr. Newman Macrocytic anemia Hyponatremia-POA Plan: Diuresing well, BUN up slightly. Clinically improved. Repeat chest x-ray shows improvement-furosemide decreased to once daily. Stable for transfer out of ICU. Continue breathing treatments. Decrease frequency of steroids; marked hyperglycemia present due to steroids. Lantus increased and corrective insulin adjusted upward. Continue ceftriaxone pending sensitivities of Proteus and wound culture; previously staph in wounds have been MRSA-doxycycline ordered. Scheduled for bone scan as an outpatient for further evaluation of wound at ankle. Hemoglobin/renal function at baseline. PT/OT consults. Discussed with RT and nursing-both provide supplemental history. Hospital Course Summary Disclaimer: The visit summary below is not to be considered part of the above Progress Note. Hospital Course: 05/16/17 Continue diuresis, trend troponin; repeat echocardiogram. Supplemental oxygen and BiPAP as needed. Repeat blood gas this morning with improvement in pH/PCO2 overnight. Continue Rocephin and check sputum culture. Wound culture obtained yesterday with Proteus-should be cultured adequately with ceftriaxone. Insulins reinitiated with corrective insulin if needed. Renal function at baseline. 05/17/17 Diuresing well, BUN up slightly. Clinically improved. Repeat chest x-ray shows improvement-furosemide decreased to once daily. Stable for transfer out of ICU. Continue breathing treatments. Decrease frequency of steroids; marked hyperglycemia present due to steroids. Lantus increased and corrective insulin adjusted upward. Continue ceftriaxone pending sensitivities of Proteus and wound culture; previously staph in wounds have been MRSA-doxycycline ordered. Scheduled for bone scan as an outpatient for further evaluation of wound at ankle.
[2017-05-17] MEDS: INSULIN DETEMIR 100unit/ml INJECTION SQ SCH ×2 (12:14→20:40)
[2017-05-17] MEDS: ACETAMINOPHEN 325 MG TABLET PO PRN ×2 (13:47→20:38)
[2017-05-17] MEDS: SALINE FLUSH 10ml SYRINGE IVF PRN (13:48)
[2017-05-17] MEDS: MIRTAZAPINE 15 MG TABLET PO SCH (20:38)
[2017-05-18] MEDS: LORazepam 0.5 MG TABLET PO PRN (00:18)
[2017-05-18] MEDS: CEFTRIAXONE 1 G in NS 100 ML IV SCH ×2 (02:13→13:38)
[2017-05-18] MEDS: ALBUTEROL/IPRATROPIUM 2.5mg-0.5mg/3ml NEB AEROSOL SCH ×4 (03:03→21:10)
[2017-05-18] MEDS: SUCRALFATE 1 GM TABLET PO SCH ×4 (06:16→20:45)
[2017-05-18] MEDS: INSULIN ASPART 100unit/ml INJECTION SQ PRN ×3 (07:44→20:46)
[2017-05-18] MEDS ORDERED: FUROSEMIDE 40 MG/4 ML INJECTION IVP SCH ×2 (09:00→17:30)
[2017-05-18] MEDS: INSULIN ASPART 100unit/ml INJECTION SQ SCH ×3 (10:10→17:54)
[2017-05-18] MEDS: METHYLPREDNISOLONE SOD SUCC 125mg/2ml INJECTION IVP SCH (10:11)
[2017-05-18] MEDS: ENOXAPARIN 40 MG/0.4 ML INJECTION SQ SCH (10:12)
[2017-05-18] MEDS: POLYETHYL GLYCOL 3350 17gm PACKET PO SCH (10:12)
[2017-05-18] MEDS: CARVEDILOL 12.5 MG TABLET PO SCH ×2 (10:12→16:31)
[2017-05-18] MEDS: AMIODARONE 200 MG TABLET PO SCH (10:13)
[2017-05-18] MEDS: LISINOPRIL 2.5 MG TABLET PO SCH (10:13)
[2017-05-18] MEDS: AMLODIPINE 2.5 MG TABLET PO SCH (10:13)
[2017-05-18] MEDS: OMEGA-3 ACID ESTERS 1 GM CAPSULE PO SCH ×3 (10:13→20:45)
[2017-05-18] MEDS: BUDESONIDE INH.SOLN 0.5mg/2ml NEB AEROSOL SCH ×2 (11:00→21:10)
--- NOTE | 2017-05-18 16:01 | Progress Note ---
- Date 05/18/17 Subjective: Angela is seen today in follow up. She is feeling slowly better, but reports some left sided chest wall pain, pleuritic. Cough, nonproductive. No substernal chest pain. Objective Vital signs: Temperature 97.3 F 05/18/17 15:41 Pulse Rate 70 05/18/17 15:41 Respiratory Rate 18 05/18/17 15:41 Blood Pressure 148/68 H 05/18/17 15:41 Pulse Oximetry 99 05/18/17 15:41 Height/Weight/BMI: Height 1.65 m Weight 78.1 kg Body Mass Index 30.8 - Constitutional Present: no acute distress, well nourished, average body habitus - Routine HEENT Exam Head: Present: normocephalic, atraumatic Eye: Present: EOMI, PERRL, normal accommodation ENT: Present: mucous membranes moist - Routine Respiratory Exam Present: decreased breath sounds, wheezes (Faint scattered wheezes. ), diminished air movement - Routine Cardiovascular Exam Present: RRR, S1, S2, no murmur - Routine Abdominal Exam Present: soft, normoactive bowel sounds, non distended, non tender - Routine Extremities Exam Present: no edema, non tender - Routine Skin Exam Present: intact, dry, warm - Routine Neurological Exam Present: alert, oriented X3, moving all extremities - Routine Psychiatric Exam Present: normal affect, normal thought process, cooperative Results - Labs CBC & Chem 7: 05/18/17 04:55 05/18/17 04:55 Microbiology Results: Microbiology 05/16/17 12:53 Sputum, Expectorated Gram Stain - Final 05/16/17 12:53 Sputum, Expectorated Sputum Culture - Final Normal Respiratory Rosie - Impressions Impression: Improved CHF with bibasilar atelectasis and small bilateral pleural effusions. . Assessment and Plan (1) Acute respiratory failure with hypoxia and hypercapnia Current visit: Yes Status: Acute (2) Congestive heart failure Problem details: Acute/chronic diastolic Current visit: Yes Status: Acute (3) COPD exacerbation Current visit: Yes Status: Acute Assessment and Plan: Impression: Acute hypoxic/hypercarbic respiratory failure Pulmonary edema Acute on chronic diastolic heart failure URI/bronchitis Lower extremity diabetic wounds-Proteus/SA on culture R-foot 05/15/17 COPD with exacerbation Diabetes mellitus with neuropathy, chronic insulin use-A1c 5.05 Apr 2017 CKD, stage III Esophageal cancer, recent chemotherapy under care of Dr. Newman Macrocytic anemia Hyponatremia-POA Plan: 05/18/17 Slow improvement. Left pleuritic pain may need further evaluation. Assess decubitus films. Consider CT if persists. Continue antibiotics. BNP trending up, but she appears intra-vascularly dry. Change Lasix to oral Bumex daily, home dosing. Continue potassium, but may need to hold if potassium level trends up. BG has been very elevated- change solumedrol to prednisone and monitor. Labs, documentation, imaging reviewed. EF is preserved per the records here- may be able to stop the SANDRA. DVT Prophylaxis: SCD's Resuscitation Status: Do Not Resuscitate - Physician Narrative Physician: Nikky Braun MD Narrative: Date: 05/18/17 Time: 1631 I have independently evaluated and examined this patient. I reviewed the chart, the patient's history, and the AUTO LOCATOR/PA's documented findings as above. We discussed and formulated the assessment and plan as above with additions as below: Mrs. Ball describes achiness in the lateral left chest but reports her breathing is improved. She is on 2 L supplemental oxygen which is baseline. She denies nausea and reports her appetite is good. She's had bowel movements into the last 2 days and has been ambulating with assistance. She hopes to be freed of the Longoria catheter soon. NAD, alert, kyphotic Respirations nonlabored, decreased breath sounds posteriorly but no wheezing or crackles at time of my exam. No tenderness on palpation of the left lateral ribs No lower extremity edema, support hose on Initiate bladder training with plan to discontinue catheter tomorrow; convert to oral steroids/diuretics as above. Two-view chest x-ray tomorrow. Postprandial blood sugar very elevated this afternoon, control improved in the morning with increased Lantus. Anticipate improved postprandial control off of Solu-Medrol. Supplemental history provided by the patient's sisters and nursing. Hospital Course Summary Disclaimer: The visit summary below is not to be considered part of the above Progress Note. Hospital Course: 05/16/17 Continue diuresis, trend troponin; repeat echocardiogram. Supplemental oxygen and BiPAP as needed. Repeat blood gas this morning with improvement in pH/PCO2 overnight. Continue Rocephin and check sputum culture. Wound culture obtained yesterday with Proteus-should be cultured adequately with ceftriaxone. Insulins reinitiated with corrective insulin if needed. Renal function at baseline. 05/17/17 Diuresing well, BUN up slightly. Clinically improved. Repeat chest x-ray shows improvement-furosemide decreased to once daily. Stable for transfer out of ICU. Continue breathing treatments. Decrease frequency of steroids; marked hyperglycemia present due to steroids. Lantus increased and corrective insulin adjusted upward. Continue ceftriaxone pending sensitivities of Proteus and wound culture; previously staph in wounds have been MRSA-doxycycline ordered. Scheduled for bone scan as an outpatient for further evaluation of wound at ankle. 05/18/17 16:10 Slow improvement. Left pleuritic pain may need further evaluation. Assess decubitus films. Consider CT if persists. Continue antibiotics. BNP trending up, but she appears intra-vascularly dry. Change Lasix to oral Bumex daily, home dosing. Continue potassium, but may need to hold if potassium level trends up. BG has been very elevated- change solumedrol to prednisone and monitor. Labs, documentation, imaging reviewed. EF is preserved per the records here- may be able to stop the SANDRA.
[2017-05-18] MEDS ORDERED: INSULIN ASPART 100unit/ml INJECTION SQ SCH (16:30)
[2017-05-18] MEDS: INSULIN DETEMIR 100unit/ml INJECTION SQ SCH (20:45)
[2017-05-18] MEDS: MIRTAZAPINE 15 MG TABLET PO SCH (20:45)
[2017-05-19] MEDS: ACETAMINOPHEN 325 MG TABLET PO PRN ×2 (00:01→22:08)
[2017-05-19] MEDS: CEFTRIAXONE 1 G in NS 100 ML IV SCH ×2 (02:29→13:55)
[2017-05-19] MEDS: SALINE FLUSH 10ml SYRINGE IVF PRN ×3 (02:30→20:43)
[2017-05-19] MEDS: ALBUTEROL/IPRATROPIUM 2.5mg-0.5mg/3ml NEB AEROSOL SCH ×5 (03:07→21:13)
[2017-05-19] MEDS: SUCRALFATE 1 GM TABLET PO SCH ×4 (06:20→20:31)
[2017-05-19] MEDS: BUDESONIDE INH.SOLN 0.5mg/2ml NEB AEROSOL SCH ×2 (08:11→21:13)
[2017-05-19] MEDS: AMLODIPINE 2.5 MG TABLET PO SCH (09:30)
[2017-05-19] MEDS: AMIODARONE 200 MG TABLET PO SCH (09:30)
[2017-05-19] MEDS: LISINOPRIL 2.5 MG TABLET PO SCH (09:30)
[2017-05-19] MEDS: ENOXAPARIN 40 MG/0.4 ML INJECTION SQ SCH (09:31)
[2017-05-19] MEDS: OMEGA-3 ACID ESTERS 1 GM CAPSULE PO SCH ×3 (09:31→20:32)
[2017-05-19] MEDS: CARVEDILOL 12.5 MG TABLET PO SCH ×2 (09:31→17:38)
[2017-05-19] MEDS: INSULIN ASPART 100unit/ml INJECTION SQ SCH ×3 (09:31→17:38)
[2017-05-19] MEDS: PredniSONE 20 MG TABLET PO SCH (09:32)
[2017-05-19] MEDS: POLYETHYL GLYCOL 3350 17gm PACKET PO SCH (09:32)
[2017-05-19] MEDS: BUMETANIDE 0.5 MG TABLET PO SCH (09:32)
[2017-05-19] MEDS: INSULIN ASPART 100unit/ml INJECTION SQ PRN ×3 (11:51→20:39)
--- NOTE | 2017-05-19 13:49 | XRay Report ---
Indication: chf PROCEDURE: XR chest w decubitus: Encounter: Initial Comparison: May 17, 2017 Findings: Lungs appear grossly stable with small bilateral pleural effusions. Lower lobe compressive atelectasis. Upper lung cardoso are grossly clear. No pneumothorax. Heart size and mediastinal contours are stable. Left pacemaker. The left decubitus view shows that the left pleural effusion is freely layering. Impression: Free flowing small left pleural effusion. Findings of mild to moderate congestive failure. .
--- NOTE | 2017-05-19 16:07 | Progress Note ---
- Date 05/19/17 Subjective: Patient seen sitting in her bed. She reports she is feeling much better. She states she is breathing well. No chest pain. Bowels are moving. She is a little bit nervous about going home tomorrow as she's not sure that she has enough strength. She plans to work on walking and doing some bed exercises this evening and work with therapy tomorrow. Objective Vital signs: Temperature 96.7 F L 05/19/17 15:15 Pulse Rate 64 05/19/17 15:15 Respiratory Rate 22 05/19/17 15:15 Blood Pressure 148/67 H 05/19/17 15:15 Pulse Oximetry 95 05/19/17 15:15 Height/Weight/BMI: Height 1.65 m Weight 78.8 kg Body Mass Index 30.8 - Constitutional Present: no acute distress, well nourished, well developed - Routine HEENT Exam ENT: Present: mucous membranes moist - Routine Respiratory Exam Present: decreased breath sounds (bilateral bases), CTA bilaterally. Absent: wheezes - Routine Cardiovascular Exam Present: RRR, murmur (GrII, best heard R sternal border) - Routine Abdominal Exam Present: soft, normoactive bowel sounds, non distended. Absent: tenderness - Routine Extremities Exam Present: no edema, normal capillary refill - Routine Skin Exam Present: dry, warm - Routine Neurological Exam Present: alert, oriented X3 - Routine Lymphatic Exam Lymphatic: Absent: adenopathy - Routine Psychiatric Exam Present: normal affect, cooperative Results - Labs CBC & Chem 7: 05/19/17 04:40 05/19/17 04:40 Microbiology Results: Microbiology 05/16/17 12:53 Sputum, Expectorated Gram Stain - Final 05/16/17 12:53 Sputum, Expectorated Sputum Culture - Final Normal Respiratory Rosie - Imaging and Cardiology Chest x-ray Additional comments: Impression: Free flowing small left pleural effusion. Findings of mild to moderate congestive failure. Assessment and Plan (1) Congestive heart failure Problem details: Acute/chronic diastolic Current visit: Yes Status: Acute (2) COPD exacerbation Current visit: Yes Status: Acute (3) Acute respiratory failure with hypoxia and hypercapnia Current visit: Yes Status: Acute Assessment and Plan: Impression: Acute hypoxic/hypercarbic respiratory failure Pulmonary edema Acute on chronic diastolic heart failure URI/bronchitis Lower extremity diabetic wounds-Proteus/SA on culture R-foot 12/13/17 COPD with exacerbation Diabetes mellitus with neuropathy, chronic insulin use-A1c 5.05 Apr 2017 CKD, stage III Esophageal cancer, recent chemotherapy under care of Dr. Newman Macrocytic anemia Hyponatremia-POA Plan: No longer having pleuritic pain. Decubitus films show free flowing small left pleural effusion. Continue ceftriaxone and doxycycline. Labs are stable. She is not requiring oxygen at this time. She is currently undergoing bladder training in hopes to DC Longoria soon. PT/OT to evaluate tomorrow to give recommendations. DVT Prophylaxis: SCD's, Lovenox Resuscitation Status: Do Not Resuscitate - Physician Narrative Physician: Nikky Braun MD Narrative: Date: 05/19/17 Time: 1800 I have independently evaluated and examined this patient. I reviewed the chart, the patient's history, and the SENIOR PAYROLL SPECIALIST/PA's documented findings as above. We discussed and formulated the assessment and plan as above with additions as below: Mrs. Ball was in good spirits today and reported the discomfort in her left chest is improved; discomfort always started when she was coughing and lasted variable degrees of time. She denies dyspnea present but continues to feel as though she pants somewhat at night. She has trouble sleeping without medicine to help her. She expressed frustration about dietary restrictions after being told she couldn't order fresh fruit at lunch; blood sugars are better today than yesterday after IV steroids were discontinued by postprandial hyperglycemia persists. Left lateral chest wall is tender to palpation, breath sounds are diminished at the bases left slightly greater than right No peripheral edema Regular rhythm. Chest x-rays reviewed by myself-free flowing small-moderate left pleural effusion, small right plural effusion, pulmonary edema has resolved although minor increased vascular markings persists. Decreased Lantus to 12 units (on 10 units at home) to avoid morning hypoglycemia. Have asked that the dietitian see the patient regarding carb consistent diet. DC Longoria catheter. PT/OT in a.m.; initial consults done Saturday the patient has had no therapy since that time. Home with home health was the initial recommendation. I believe ceftriaxone can be for converted to cephalexin to treat Proteus in the patient's wound; she is scheduled for bone scan as an outpatient later this week per managing physician at the wound care center. Hospital Course Summary Disclaimer: The visit summary below is not to be considered part of the above Progress Note. Hospital Course: 05/16/17 Continue diuresis, trend troponin; repeat echocardiogram. Supplemental oxygen and BiPAP as needed. Repeat blood gas this morning with improvement in pH/PCO2 overnight. Continue Rocephin and check sputum culture. Wound culture obtained yesterday with Proteus-should be cultured adequately with ceftriaxone. Insulins reinitiated with corrective insulin if needed. Renal function at baseline. 05/17/17 Diuresing well, BUN up slightly. Clinically improved. Repeat chest x-ray shows improvement-furosemide decreased to once daily. Stable for transfer out of ICU. Continue breathing treatments. Decrease frequency of steroids; marked hyperglycemia present due to steroids. Lantus increased and corrective insulin adjusted upward. Continue ceftriaxone pending sensitivities of Proteus and wound culture; previously staph in wounds have been MRSA-doxycycline ordered. Scheduled for bone scan as an outpatient for further evaluation of wound at ankle. 05/18/17 16:10 Slow improvement. Left pleuritic pain may need further evaluation. Assess decubitus films. Consider CT if persists. Continue antibiotics. BNP trending up, but she appears intra-vascularly dry. Change Lasix to oral Bumex daily, home dosing. Continue potassium, but may need to hold if potassium level trends up. BG has been very elevated- change solumedrol to prednisone and monitor. Labs, documentation, imaging reviewed. EF is preserved per the records here- may be able to stop the SANDRA. 05/19/17 16:12 No longer having pleuritic pain. Decubitus films show free flowing small left pleural effusion. Continue ceftriaxone and doxycycline. Labs are stable. She is not requiring oxygen at this time. She is currently undergoing bladder training in hopes to DC Longoria soon. PT/OT to evaluate tomorrow to give recommendations.
[2017-05-19] MEDS ORDERED: INSULIN DETEMIR 100unit/ml INJECTION SQ SCH (18:25)
[2017-05-19] MEDS: MIRTAZAPINE 15 MG TABLET PO SCH (20:31)
[2017-05-20] MEDS: ALBUTEROL/IPRATROPIUM 2.5mg-0.5mg/3ml NEB AEROSOL SCH ×3 (03:08→15:38)
[2017-05-20] MEDS: SUCRALFATE 1 GM TABLET PO SCH ×3 (05:36→17:10)
[2017-05-20] MEDS: ACETAMINOPHEN 325 MG TABLET PO PRN (05:36)
[2017-05-20] MEDS: LORazepam 0.5 MG TABLET PO PRN (05:36)
[2017-05-20] MEDS: INSULIN ASPART 100unit/ml INJECTION SQ SCH ×2 (07:53→12:14)
[2017-05-20] MEDS: POLYETHYL GLYCOL 3350 17gm PACKET PO SCH (08:00)
[2017-05-20] MEDS: PredniSONE 20 MG TABLET PO SCH (08:00)
[2017-05-20] MEDS: CARVEDILOL 12.5 MG TABLET PO SCH ×2 (08:00→17:10)
[2017-05-20] MEDS: OMEGA-3 ACID ESTERS 1 GM CAPSULE PO SCH ×2 (08:00→14:41)
[2017-05-20] MEDS: LISINOPRIL 2.5 MG TABLET PO SCH (08:01)
[2017-05-20] MEDS: AMLODIPINE 2.5 MG TABLET PO SCH (08:01)
[2017-05-20] MEDS: ENOXAPARIN 40 MG/0.4 ML INJECTION SQ SCH (08:01)
[2017-05-20] MEDS: BUMETANIDE 0.5 MG TABLET PO SCH (08:02)
[2017-05-20] MEDS: AMIODARONE 200 MG TABLET PO SCH (08:03)
[2017-05-20] MEDS: BUDESONIDE INH.SOLN 0.5mg/2ml NEB AEROSOL SCH (09:20)
--- NOTE | 2017-05-20 14:24 | Discharge Summary ---
Discharge Information Date of admission: 05/16/17 03:04 Anticipated date of discharge: 05/20/17 Attending Physician: Deidra Candelaria MD Primary care physician: Rachel Dietz DO Consults: [facility] Consult - Discharge Diagnosis (1) Acute respiratory failure with hypoxia and hypercapnia Status: Resolved (2) Congestive heart failure Status: Resolved DISCHARGE DIAGNOSES Acute hypoxic/hypercarbic respiratory failure - resolved Pulmonary edema - improved Acute on chronic diastolic heart failure - resolved COPD with exacerbation - improved URI/bronchitis - symptoms improved Hyponatremia-POA, resolved Oral pharyngeal dysphagia Hyperkalemia - 5.4 on discharge COMORBIDITIES Lower extremity diabetic wounds-Proteus/MIKE on culture R-foot 05/15/17 COPD Diabetes mellitus with neuropathy, chronic insulin use-A1c 5.05 Apr 2017 CKD, stage III Esophageal cancer, recent chemotherapy under care of Dr. Newman Macrocytic anemia - Procedures Procedures: Longoria catheter 05/16/17-05/19/17 - Laboratory Labs: 05/19/17 04:40 05/19/17 04:40 - Microbiology Microbiology 05/16/17 12:53 Sputum, Expectorated Gram Stain - Final 05/16/17 12:53 Sputum, Expectorated Sputum Culture - Final Normal Respiratory Rosie - Radiology Radiology: CXR on 05/16/17 showed Moderate cardiomegaly with CHF and significant pulmonary edema Repeat CXR on 05/17/17: Improved CHF with bibasilar atelectasis and small bilateral pleural effusions CXR with decubitus on 05/19/17: Free flowing small left pleural effusion. Findings of mild to moderate congestive failure. History of Present Illness HPI: This is a 82 y/o female who presents with increase short of breath today. The patient denies fever, chills or sweats. The patient is found by EMS to have sats 60%? She is started on solumedrol en rout . In the ED the patient is started on biPAp with an initial abg demonstrating pH 7.29 pco2 53 and paO2 78. The patient ekg demonstrate old LBBB. The initial troponin is .03. CXR demonstrates changes c/w mild heart failure. At this time the patient is admitted into the ICU with an exacerbation of copd with mild congestive heart failure. Patient is on bipap currently and is not able to provide much more history other that what the ED provider was able to obtain Objective Vital signs: Temperature 97.3 F 05/20/17 12:15 Pulse Rate 82 05/20/17 12:15 Respiratory Rate 20 05/20/17 12:15 Blood Pressure 158/69 H 05/20/17 12:15 Pulse Oximetry 97 05/20/17 12:15 Rhythm: Normal Sinus Rhythm Height/Weight/BMI: Height 1.65 m Weight 78 kg Body Mass Index 30.8 - Constitutional Present: no acute distress, well nourished, well developed - Routine HEENT Exam Head: Present: normocephalic ENT: Absent: oropharynx clear (thrush to posterior pharynx) Comments: c/o sore throat - Routine Respiratory Exam Present: decreased breath sounds (b/l bases), rales (R>L (mild)) - Routine Cardiovascular Exam Present: RRR, S1, S2 - Routine Abdominal Exam Present: soft, normoactive bowel sounds, non distended, non tender - Routine Extremities Exam Present: no edema - Routine Musculoskeletal Exam Musculoskeletal: Present: normal gait - Routine Skin Exam Present: intact, dry, warm - Routine Neurological Exam Present: alert, oriented X3, normal speech - Routine Psychiatric Exam Present: normal affect, normal thought process, cooperative Hospital Course This is a general summary of the patient's hospital course. For more details refer to the complete medical record. Hospital course: 05/16/17 Continue diuresis, trend troponin; repeat echocardiogram. Supplemental oxygen and BiPAP as needed. Repeat blood gas this morning with improvement in pH/PCO2 overnight. Continue Rocephin and check sputum culture. Wound culture obtained yesterday with Proteus-should be cultured adequately with ceftriaxone. Insulins reinitiated with corrective insulin if needed. Renal function at baseline. 05/17/17 Diuresing well, BUN up slightly. Clinically improved. Repeat chest x-ray shows improvement-furosemide decreased to once daily. Stable for transfer out of ICU. Continue breathing treatments. Decrease frequency of steroids; marked hyperglycemia present due to steroids. Lantus increased and corrective insulin adjusted upward. Continue ceftriaxone pending sensitivities of Proteus and wound culture; previously staph in wounds have been MRSA-doxycycline ordered. Scheduled for bone scan as an outpatient for further evaluation of wound at ankle. 05/18/17 16:10 Slow improvement. Left pleuritic pain may need further evaluation. Assess decubitus films. Consider CT if persists. Continue antibiotics. BNP trending up, but she appears intra-vascularly dry. Change Lasix to oral Bumex daily, home dosing. Continue potassium, but may need to hold if potassium level trends up. BG has been very elevated- change solumedrol to prednisone and monitor. Labs, documentation, imaging reviewed. EF is preserved per the records here- may be able to stop the SANDRA. 05/19/17 No longer having pleuritic pain. Decubitus films show free flowing small left pleural effusion. Continue ceftriaxone and doxycycline. Labs stable. She is not requiring oxygen at this time. Longoria discontinued. 05/20/17 Pulmonary edema - continue home dose Bumex; F/U with Dr. Leyva on 06/06/17, continue nocturnal O2 (has at home), and during the day PRN. COPD exacerbation - Rx Prednisone taper. Rx for nebulizer provided (her existing neb was broken) Rt foot wound with proteus/MIKE - Rx Keflex 500 mg TID x 7 days. Continue home wound care as directed by wound clinic and call for f/u appt. Oral pharyngeal dysphagia - sips of water ok per speech but if she drinks juice or milk she will need to thicken it. Recommend soft diet with chopped meat. Education provided per speech therapist. Hyperkalemia - K was 5.4 on day of discharge; HOLD lisinopril and KDur for now; have BMP rechecked on 05/21/17 and again on 05/23/17 to f/u on potassium, sodium and renal function. Resume KDur and lisinopril per Dr. Dietz/Dr. Leyva. PT/OT - doing well, recommending home with home health. Will receive services through [facility]. Thrush - Rx nystatin DM - diabetic education provided prior to discharge F/U with Dr. Dietz in 1 week. Time spent with patient: discharge greater than 30 minutes Discharge Plan - Discharge Disposition Discharge Date: 05/20/17 Disposition: 86 Home Health Service *Condition: Stable Reason For Visit (Visit label in EMR): Hypercapnic resp failure - Discharge Medications *Discharge Medications: New CephALEXin [Keflex] 500 mg PO TID #21 cap Nystatin Oral Liq. [Mycostatin] 5 ml PO QID 10 Days #1 bottle PredniSONE [Deltasone] 20 mg PO WB #6 tab Continue Ascorbic Acid 500 mg PO DAILY #0 Carvedilol 12.5 mg PO BID #0 guaiFENesin [Mucinex] 600 mg PO Q12H #0 Acetaminophen [Acetaminophen 8 Hour] 650 mg PO DAILY PRN #0 PRN Reason: PAIN Amiodarone [Pacerone] 200 mg PO DAILY #30 tab Vitamin E 400 unit PO DAILY Mupirocin Cream [Bactroban 2% Cream] 1 applicatio TOP TID Mirtazapine [Remeron] 15 mg PO HS Prochlorperazine Maleate [Compazine] 10 mg PO Q6H PRN PRN Reason: Nausea Hydrocodone/Acetaminophen [Hydrocodon-Acetaminophen 5-325] 1 tab PO Q4H PRN PRN Reason: Pain Ferrous Sulfate 325 mg PO TID Fenofibrate [Lofibra] 160 mg PO DAILY diphenhydrAMINE HCl [Benadryl] 25 mg PO QID PRN #0 PRN Reason: ITCHING Amlodipine Besylate 2.5 mg PO DAILY #0 Calcium Carbonate/Vitamin D3 [Calcium 600-Vit D3 200 Tablet] 1 tab PO TID #0 Insulin Aspart [NovoLOG] 4 unit SQ WB #0 Insulin Aspart [NovoLOG] 5 unit SQ WL #0 Insulin Detemir [Levemir] 10 unit SQ HS #0 Ipratropium/Albuterol Sulfate [Iprat-Albut 0.5-3(2.5) mg/3 ml] 1 vial AEROSOL QID PRN #0 PRN Reason: PRN ORDERS LORazepam [Lorazepam] 0.5 mg PO Q4H PRN #0 PRN Reason: ANXIETY Polyethylene Glycol 3350 [Miralax] 17 g PO DAILY PRN #0 PRN Reason: CONSTIPATION Bisacodyl 10 mg RECTALLY DAILY PRN #0 PRN Reason: CONSTIPATION Insulin Aspart [NovoLOG] 5 unit SQ WS #0 [place]-3 Fatty Acids [Fish Oil Concentrate] 1,000 mg PO TID Albuterol Neb (0.083%) [Proventil Neb (0.083%)] 2.5 mg AEROSOL Q6HR Yves/Polym/Bacitracin Oint Pckt [Neosporin] 1 applicatio Bumetanide Tab [Bumex Tab] 0.5 mg PO DAILY #30 tab Multivit-Min/Folic Acid/Biotin [Women Multivit W-Biotin Gummy] 1 tab PO DAILY Sucralfate [Carafate] 1 g PO QID Discontinued Lisinopril [Prinivil] 2.5 mg PO DAILY Doxycycline Monohydrate 100 mg PO DAILY Potassium Chloride [Klor-Con M20] 20 meq PO DAILY Lisinopril 2.5 mg PO DAILY #0 Docusate Sodium [Colace] 100 mg PO BID PRN #0 PRN Reason: Constipation /Stool Softening - Discharge Packet/Instructions *Diet: Consistent carbohydrate, low fat, low sodium, 2000 calories per day. You may drink water but use thickener if you wish to drink juice or milk. Eat a soft diet with chopped meats. *Activity: As tolerated. Continue oxygen at night and during the day, as needed. *Pain Management/Treatment: Tylenol if needed. *Wound Care: Continue your previous wound care instructions. Call the Wound Clinic to arrange a follow up appointment. Additional Instructions: Have your lab drawn 1st thing in the morning on to follow up on a mildly elevated potassium level. STOP taking lisinopril and potassium pills until Dr. Dietz or Dr. Leyva tell you to restart them. An order has also been written to check lab on 05/23/17. *Expected Signs/Symptoms: You may continue to cough or feel mildly short of breath, but the symptoms should not persist. You may feel fatigued and weakened from your hospital stay. Your sore throat should improve with use of Nystatin. *Notify Physician if: fever, worsened cough, shortness of breath, chest pain, rapid weight gain, stroke-like symptoms, dizziness, passing out or fainting, or any new concerns *During Business Hours Contact: [facility], Dr. Dietz; or you may call Dr. Leyva's office. *After Business Hours Contact: The on-call provider for Dr. Dietz or for Dr. Leyva. If your condition is serious, such as chest pain, difficulty breathing , stroke-like symptoms, please call 911. *Pending Lab/Results: No Pending Lab Outpatient Orders: BMP - Basic Metabolic - [facility] Time Frame: 3 Days, Location: None Selected BMP - Basic Metabolic - [facility] Time Frame: 1 Day, Location: None Selected - Referrals/Follow Up *Referrals/Follow Up: Rachel Dietz DO [Family Provider] - 1 Week Oriana Leyva MD [Physician] - (June 06, 2017) - Patient Handouts Patient Handouts: [facility] Congestive Heart Failure, Chronic Lung Disease and Infection Prevention (GEN) Physician Narrative - Narrative Attestation Narrative: Date: 05/20/17 Time: [id number]
[2017-05-20] MEDS: INSULIN ASPART 100unit/ml INJECTION SQ PRN (14:40)
[2017-05-20 15:46] VITALS: RESP 18
[2017-05-20 15:55] VITALS: BP 156/67; PULSE 71; TEMP 96.2; O2SAT 96
[2017-05-20] MEDS ORDERED: NYSTATIN 500,000 units/5 ml ORAL LIQUID PO SCH (17:00)
== END 2017-05-20 17:35 | disposition home health service (06) | DRG 189 ==
LOC: ED 00:38 → CCU 03:00 → SUATTDRO 03:04 → CCU 03:04 → MED 05-17 12:02
PROVIDERS: ADMIT Emergency Medicine; ATTEND Internal Medicine

== ENCOUNTER 2017-06-20 00:58 | Inpatient (IN) ==
[2017-06-20] MEDS: SALINE FLUSH 10ml SYRINGE IVF PRN ×4 (01:30→14:05)
[2017-06-20] MEDS ORDERED: METHYLPREDNISOLONE SOD SUCC 125mg/2ml INJECTION IVP ONE (01:42)
[2017-06-20] MEDS ORDERED: FUROSEMIDE 20 MG/2 ML INJECTION IVP ONE ×2 (01:42→03:02)
[2017-06-20] MEDS ORDERED: ALBUTEROL/IPRATROPIUM 2.5mg-0.5mg/3ml NEB IH ONE (01:42)
--- NOTE | 2017-06-20 01:50 | Emergency Department Report ---
SOB HPI - General Chief Complaint: Shortness of Breath/Dyspnea Stated Complaint: Trouble breathing Time Seen by Provider: 06/20/17 01:15 - History of Present Illness 82-year-old female presents with shortness of breath which has been increasing over the last 3 weeks. Her nebulizer broke several weeks ago, she has not called to have her placed. She is brought in by EMS, breathing rapidly and shallow and unable to answer questions due to both being hard of hearing and rapidity of breathing. She has had no fever or chills according to her sisters. She does have a history of COPD and a history of CHF. To the best of their knowledge she has been taking her medication, however they brought him a list of lab results instead of a medication list on accident. Patient normally uses 2 L nasal cannula at home. She has DO NOT RESUSCITATE and does not want intubation or CPR. - Related Data Home Medications Medication Instructions Recorded Confirmed Ascorbic Acid 500 mg PO DAILY #0 08/03/15 05/16/17 diphenhydrAMINE HCl [Benadryl] 25 mg PO QID PRN #0 08/03/15 05/16/17 Amlodipine Besylate 2.5 mg PO DAILY #0 07/25/16 05/16/17 Calcium Carbonate/Vitamin D3 1 tab PO TID #0 07/25/16 05/16/17 [Calcium 600-Vit D3 200 Tablet] Carvedilol 12.5 mg PO BID #0 07/25/16 05/16/17 Insulin Aspart [NovoLOG] 4 unit SQ WB #0 07/25/16 05/16/17 Insulin Aspart [NovoLOG] 5 unit SQ WL #0 07/25/16 05/16/17 Insulin Detemir [Levemir] 10 unit SQ HS #0 07/25/16 05/16/17 Ipratropium/Albuterol Sulfate 1 vial AEROSOL QID PRN #0 07/25/16 03/07/17 [Iprat-Albut 0.5-3(2.5) mg/3 ml] LORazepam [Lorazepam] 0.5 mg PO Q4H PRN #0 07/25/16 05/16/17 Polyethylene Glycol 3350 [Miralax] 17 g PO DAILY PRN #0 07/25/16 03/07/17 guaiFENesin [Mucinex] 600 mg PO Q12H #0 07/25/16 05/16/17 Acetaminophen [Acetaminophen 8 650 mg PO DAILY PRN #0 08/17/16 05/16/17 Hour] Bisacodyl 10 mg RECTALLY DAILY PRN #0 08/17/16 05/16/17 Insulin Aspart [NovoLOG] 5 unit SQ WS #0 08/17/16 05/16/17 Albuterol Neb (0.083%) [Proventil 2.5 mg AEROSOL Q6HR 02/27/17 05/16/17 Neb (0.083%)] Mirtazapine [Remeron] 15 mg PO HS 02/27/17 05/16/17 Mupirocin Cream [Bactroban 2% 1 applicatio TOP TID 02/27/17 03/07/17 Cream] [place]-3 Fatty Acids [Fish Oil 1,000 mg PO TID 02/27/17 05/16/17 Concentrate] Vitamin E 400 unit PO DAILY 02/27/17 05/16/17 Yves/Polym/Bacitracin Oint Pckt 1 applicatio 03/07/17 [Neosporin] Fenofibrate [Lofibra] 160 mg PO DAILY 05/16/17 05/16/17 Ferrous Sulfate 325 mg PO TID 05/16/17 05/16/17 Hydrocodone/Acetaminophen 1 tab PO Q4H PRN 05/16/17 05/16/17 [Hydrocodon-Acetaminophen 5-325] Multivit-Min/Folic Acid/Biotin 1 tab PO DAILY 05/16/17 05/16/17 [Women Multivit W-Biotin Gummy] Prochlorperazine Maleate 10 mg PO Q6H PRN 05/16/17 05/16/17 [Compazine] Sucralfate [Carafate] 1 g PO QID 05/16/17 05/16/17 Previous Rx's Medication Instructions Recorded Amiodarone [Pacerone] 200 mg PO DAILY #30 tab 08/22/16 Bumetanide Tab [Bumex Tab] 0.5 mg PO DAILY #30 tab 03/12/17 CephALEXin [Keflex] 500 mg PO TID #21 cap 05/20/17 Nystatin Oral Liq. [Mycostatin] 5 ml PO QID 10 Days #1 bottle 05/20/17 PredniSONE [Deltasone] 20 mg PO WB #6 tab 05/20/17 Allergies Allergy/AdvReac Type Severity Reaction Status Date / Time sulfamethoxazole Allergy Unknown hives Verified 05/16/17 01:10 trimethoprim Allergy Unknown HIVES Verified 05/16/17 01:10 niacin AdvReac Intermediate HIVES Verified 05/16/17 01:10 Review of Systems All systems: reviewed and negative except as stated PFSH Patient Stated Medical History Hearing Loss Yes: hearing aids Cardiac Arrhythmia Yes: afib Congestive Heart Failure Yes Hypertension Yes Chronic Obstructive Pulmonary Yes Disease (COPD) Sleep Apnea Yes Diabetes Mellitus Type 1 Yes Diabetes Mellitus Type 2 Yes Constipation Yes Gastroesophageal Reflux Yes Disease Hx Incontinence Yes Hx Urinary Tract Infection Yes Cellulitis Yes: foot MRSA Yes Sepsis Yes Other Yes: removal of PAC Rt chest Clinic Medical History (Last Updated 02/11/17 @ 18:53 by Zoe Rodriguez [facility]) Diabetes (Chronic Medical) Heart disease (Chronic Medical) Neuropathy (Chronic Medical) Surgical History: Bilateral cataract extraction-2006. Appendectomy. Hysterectomy-2003. Cystoscopy 2008. Cardiac catheter-2008. EGD and diagnosis of esophageal cancer-2007. Port-A-Cath placement-2007. Bilateral toes amputations Family History: Family History (Last Updated 05/16/17 @ 14:37 by Nikky Braun MD) Father CAD (coronary artery disease) Mother CAD (coronary artery disease) Sister Parkinsons disease Brother Asthma - Social History Smoking status: Former smoker Physical Exam - Limitations Limitations: other (heart appearing and breathing too rapidly to speak) - General General appearance: in distress - Normal Exams: Head:: Normocephalic without trauma Abdomen:: Bowel sounds positive, soft, non-tender, non-distended, no hepatosplenomegaly, masses or bruits noted - Respiratory Respiratory exam: Present: other (poor air movement, and initial difficulty and detecting specific breath sounds. However when she been given nebulizer treatment, very wet lungs sounds were heard significant crackles bilateral.) - Cardiovascular Cardiovascular exam: Present: tachycardia Course Vital Signs Temperature 98.3 F 06/20/17 00:58 Pulse Rate 94 06/20/17 00:58 Respiratory Rate 44 H 06/20/17 00:58 Blood Pressure 194/81 H 06/20/17 00:58 Pulse Oximetry 93 06/20/17 00:58 Temperature 98.3 F 06/20/17 00:58 Pulse Rate 77 06/20/17 03:00 Respiratory Rate 24 06/20/17 01:41 Blood Pressure 194/81 H 06/20/17 00:58 Pulse Oximetry 91 06/20/17 01:41 Shortness of Breath/Dyspnea - [facility] Narrative Medical decision making narrative: On arrival patient was given DuoNeb nebulizer and one 25 mg Solu-Medrol. This is due to her history of a broken nebulizer over the last 3 weeks and worsening breathing status. Once DuoNeb was given, and she began to move more air, she sounded obviously saturated and congestive heart failure. Chest x-ray supports this as does a BNP of 19,300. Patient was given Lasix 20 mg IV while other labs were pending. Potassium returned 4.7., Creatinine 1.5. This was discussed with hospitalist. Patient was given another 20 mg Lasix IV dose. [place] catheter will track urine output. She is still requiring oxygen supplementation, but is already showing some improvement in breathing. She is DO NOT RESUSCITATE and her sister has DURABLE POWER OF STRATEGIC ACCOUNTS MANAGER. - Differential Diagnosis Likely: acute exacerbation of chronic obstructive airways disease, congestive heart failure, community acquired pneumonia, asthma with exacerbation - Medical Records Attestation: I reviewed the patient's medical records. - Lab Data Attestation: I reviewed the patient's lab results. Result diagrams: 06/20/17 01:42 06/20/17 01:42 Lab Results 06/20/17 06/20/17 06/20/17 Range/Units 01:42 01:42 01:47 WBC 8.9 (4.5-11.0) T/MM3 RBC 3.50 L (4.00-5.20) M/MM3 Hgb 11.4 L (12-16) GM/DL Hct 36.1 (36-46) % MCV 103.1 H (80-100) UM3 MCH 32.6 (26-34) UUG MCHC 31.6 (31-37) GM/DL RDW Std Deviation 56.3 H (36.9-50.2) FL Plt Count 258 (130-400) T/MM3 MPV 11.6 (9.4-12.4) UM3 Immature Gran % (Auto) Not performed Neut % (Auto) Not performed Lymph % (Auto) Not performed Mora % (Auto) Not performed Eos % (Auto) Not performed Baso % (Auto) Not performed Neut # (Auto) Not performed Lymph # (Auto) Not performed [place] # (Auto) Not performed Eos # (Auto) Not performed Baso # (Auto) Not performed Abs Immat Gran (auto) Not performed Neutrophils % (Manual) 68.0 H (33-66) % Lymphocytes % (Manual) 28.0 (23-45) % Monocytes % (Manual) 4.0 (0-9.0) % Neutrophils # (Manual) 6.1 (1.8-7.7) T/MM3 Lymphocytes # (Manual) 2.5 (1-4.8) T/MM3 Monocytes # (Manual) 0.4 (0-0.8) T/MM3 RBC Morph Comment Normal Turbidity < 20 (0-20) Sodium 147 H (134-144) MEQ/L Potassium 4.7 (3.6-5) MEQ/L Chloride 114 H (98-107) MEQ/L Carbon Dioxide 23 (22-30) MEQ/L Anion Gap 10 (5-15) MEQ/L BUN 41.0 H (7-17) MG/DL Creatinine 1.5 H (0.7-1.2) MG/DL GFR Calculation 33 BUN/Creatinine Ratio 27 H (6-26) RATIO Glucose 167 H (65-110) MG/DL Calculated Osmolality 296 H (261-280) MOSM/KG Calcium 8.7 (8.4-10.2) MG/DL Total Bilirubin 0.50 (0.20-1.30) MG/DL Icterus Index < 2 (0-7) AST 44 H (14-36) U/L ALT 97 H (9-52) U/L Alkaline Phosphatase 93 (38-126) U/L Troponin I 0.022 (0-0.12) ng/ml B-Natriuretic Peptide 55830 H (0-175) pg/mL Total Protein 6.9 (6.3-8.2) G/DL Albumin 3.8 (3.5-5.0) G/DL Globulin 3.1 (2.4-3.6) G/DL Albumin/Globulin Ratio 1.2 (1.1-2.2) RATIO Specimen Hemolysis 19 (0-25) Influenza Type A (PCR) Negative (Negative) Influenza Type B (PCR) Negative (Negative) - Radiology Data Attestation: I reviewed the patient's radiology results. Disposition Clinical Impression: Congestive heart failure, Hypoxemia Disposition: OBS [facility] [place] Condition: Stable Prescriptions: No Action Ascorbic Acid 500 mg PO DAILY #0 Carvedilol 12.5 mg PO BID #0 guaiFENesin [Mucinex] 600 mg PO Q12H #0 Acetaminophen [Acetaminophen 8 Hour] 650 mg PO DAILY PRN #0 PRN Reason: PAIN Amiodarone [Pacerone] 200 mg PO DAILY #30 tab Vitamin E 400 unit PO DAILY Mupirocin Cream [Bactroban 2% Cream] 1 applicatio TOP TID Mirtazapine [Remeron] 15 mg PO HS Prochlorperazine Maleate [Compazine] 10 mg PO Q6H PRN PRN Reason: Nausea Hydrocodone/Acetaminophen [Hydrocodon-Acetaminophen 5-325] 1 tab PO Q4H PRN PRN Reason: Pain Ferrous Sulfate 325 mg PO TID Fenofibrate [Lofibra] 160 mg PO DAILY CephALEXin [Keflex] 500 mg PO TID #21 cap diphenhydrAMINE HCl [Benadryl] 25 mg PO QID PRN #0 PRN Reason: ITCHING Amlodipine Besylate 2.5 mg PO DAILY #0 Calcium Carbonate/Vitamin D3 [Calcium 600-Vit D3 200 Tablet] 1 tab PO TID #0 Insulin Aspart [NovoLOG] 4 unit SQ WB #0 Insulin Aspart [NovoLOG] 5 unit SQ WL #0 Insulin Detemir [Levemir] 10 unit SQ HS #0 Ipratropium/Albuterol Sulfate [Iprat-Albut 0.5-3(2.5) mg/3 ml] 1 vial AEROSOL QID PRN #0 PRN Reason: PRN ORDERS LORazepam [Lorazepam] 0.5 mg PO Q4H PRN #0 PRN Reason: ANXIETY Polyethylene Glycol 3350 [Miralax] 17 g PO DAILY PRN #0 PRN Reason: CONSTIPATION Bisacodyl 10 mg RECTALLY DAILY PRN #0 PRN Reason: CONSTIPATION Insulin Aspart [NovoLOG] 5 unit SQ WS #0 [place]-3 Fatty Acids [Fish Oil Concentrate] 1,000 mg PO TID Albuterol Neb (0.083%) [Proventil Neb (0.083%)] 2.5 mg AEROSOL Q6HR Yves/Polym/Bacitracin Oint Pckt [Neosporin] 1 applicatio Bumetanide Tab [Bumex Tab] 0.5 mg PO DAILY #30 tab Multivit-Min/Folic Acid/Biotin [Women Multivit W-Biotin Gummy] 1 tab PO DAILY Sucralfate [Carafate] 1 g PO QID Nystatin Oral Liq. [Mycostatin] 5 ml PO QID 10 Days #1 bottle PredniSONE [Deltasone] 20 mg PO WB #6 tab Referrals: Rachel Dietz DO [Family Provider] - Time of Disposition: 03:06 - Seen By: physician
[2017-06-20] MEDS ORDERED: DOCUSATE SODIUM 100 MG CAPSULE PO PRN (03:21)
[2017-06-20] MEDS ORDERED: MORPHINE SULFATE 4mg INJECTION IVP PRN (03:21)
[2017-06-20] MEDS ORDERED: ONDANSETRON 4 MG/2 ML INJECTION IVP PRN (03:21)
[2017-06-20] MEDS ORDERED: HYDROCODONE/APAP 5mg/325mg TABLET PO PRN (03:21)
[2017-06-20 03:59] VITALS: BMI 35.4
--- NOTE | 2017-06-20 04:41 | History & Physical Report ---
History of Present Illness Date: 06/20/17 Chief complaint: Dyspnea HPI: Angela is an 82-year-old female patient of Dr. Carrasquillo. She was brought in by her sister who lives with her, with a report of 3 weeks of increasing progressive shortness of air and dyspnea on exertion. She does have a history of both oxygen dependent COPD and congestive heart failure, apparently her home nebulizer broke a couple of weeks ago. Her sister had just recently discovered this fact, and assumed that was the reason for her shortness of breath. However , in the emergency department she was significantly hypoxic, and her chest x- ray reveals a large right-sided pleural effusion, and extensive pulmonary vascular congestion. Her BNP was over 19,000. She was given steroids, breathing treatment, and 40 mg of IV Lasix after a Longoria catheter was placed. Her CODE STATUS was confirmed to be DO NOT RESUSCITATE. Her sister thought she had brought her list of home medications, however it turned out to be something else so we do not have an accurate medication list at this time. It sounds like she is on daily prednisone, and insulin for diabetes mellitus. Her sister saw her up to her room, and I saw the patient not long after her arrival on the medical floor, but she was unaccompanied by family at the time of my evaluation so the majority of the history is gleaned from the emergency providers report, as well as the bedside nurse. The patient herself is not a good historian at this time, she is hard of hearing and short of breath. Review of Systems ROS unobtainable: other (Due to patient status as above and that which is documented is per RN or ED provider) - Constitutional Constitutional: Absent: chills, fever(s) - Cardiovascular Cardiovascular: Present: orthopnea, edema. Absent: chest pain, palpitations - Respiratory Respiratory: Present: cough, dyspnea, dyspnea on exertion, chest congestion. Absent: hemoptysis - Gastrointestinal Gastrointestinal: Absent: change in bowel habits Past Medical History Patient Stated Medical History Kelly Braun 06/20/17: COPD Atrial fibrillation Type 2 diabetes mellitus with peripheral neuropathy Esophageal cancer Hypertension Chronic kidney disease History anemia with GI bleeds for which anticoagulation was previously discontinued GERD History osteoarthritis Hyperlipidemia Obstructive sleep apnea Chronic lower extremity wounds/cellulitis-followed at wound care clinic Moderate mitral regurgitation Valvular/diastolic congestive heart failure-EF 50-55% 08/16 CAD-cardiac catheterization in 2013 with mild coronary disease including 60-70% stenosis of a diagonal branch, all major coronary arteries were widely open at that time. Clinic Medical History (Last Updated 02/11/17 @ 18:53 by CAT Hampton) Diabetes (Chronic Medical) Heart disease (Chronic Medical) Neuropathy (Chronic Medical) The bedside nurse added that her sister stated that she is currently on chemotherapy for recurrent esophageal cancer; further details not known at this time such as her oncologist Surgical History: Bilateral cataract extraction-2006. Appendectomy. Hysterectomy-2003. Cystoscopy 2008. Cardiac catheter-2008. EGD and diagnosis of esophageal cancer-2007. Port-A-Cath placement-2007. Bilateral toes amputations Family History: Family History (Last Updated 05/16/17 @ 14:37 by Nikky Braun MD) Father CAD (coronary artery disease) Mother CAD (coronary artery disease) Sister Parkinsons disease Brother Asthma Family History Updates: not obtainable at this time - Social History Smoking status: Former smoker Household members: family (Sister) Current occupational status: retired Medications Home Medications Medication Instructions Recorded Confirmed Type Ascorbic Acid 500 mg PO DAILY #0 08/03/15 06/20/17 History diphenhydrAMINE HCl [Benadryl] 25 mg PO QID PRN #0 08/03/15 06/20/17 History Amlodipine Besylate 2.5 mg PO DAILY #0 07/25/16 06/20/17 History Calcium Carbonate/Vitamin D3 1 tab PO TID #0 07/25/16 06/20/17 History [Calcium 600-Vit D3 200 Tablet] Carvedilol 12.5 mg PO BID #0 07/25/16 06/20/17 History Insulin Aspart [NovoLOG] 6 unit SQ WL #0 07/25/16 06/20/17 History Insulin Aspart [NovoLOG] 6 unit SQ WL #0 07/25/16 06/20/17 History Insulin Detemir [Levemir] 20 unit SQ HS #0 07/25/16 06/20/17 History Ipratropium/Albuterol Sulfate 1 vial AEROSOL QID PRN #0 07/25/16 03/07/17 History [Iprat-Albut 0.5-3(2.5) mg/3 ml] LORazepam [Lorazepam] 1 mg PO HS PRN #0 02/22/17 01/18/18 History Polyethylene Glycol 3350 [Miralax] 17 g PO DAILY PRN #0 07/25/16 06/20/17 History guaiFENesin [Mucinex] 600 mg PO Q12H #0 07/25/16 06/20/17 History Acetaminophen [Acetaminophen 8 650 mg PO DAILY PRN #0 08/17/16 06/20/17 History Hour] Bisacodyl 10 mg RECTALLY DAILY PRN #0 08/17/16 06/20/17 History Insulin Aspart [NovoLOG] 6 unit SQ WB #0 08/17/16 06/20/17 History Albuterol Neb (0.083%) [Proventil 2.5 mg AEROSOL Q6HR 02/27/17 06/20/17 History Neb (0.083%)] Mirtazapine [Remeron] 15 mg PO HS 02/27/17 06/20/17 History Mupirocin Cream [Bactroban 2% 1 applicatio TOP TID 02/27/17 06/20/17 History Cream] Norman-3 Fatty Acids [Fish Oil 1,000 mg PO TID 02/27/17 06/20/17 History Concentrate] Vitamin E 400 unit PO DAILY 02/27/17 06/20/17 History Yves/Polym/Bacitracin Oint Pckt 1 applicatio 03/07/17 History [Neosporin] Fenofibrate [Lofibra] 160 mg PO DAILY 05/16/17 05/16/17 History Ferrous Sulfate 325 mg PO TID 05/16/17 06/20/17 History Hydrocodone/Acetaminophen 1 tab PO Q4H PRN 05/16/17 06/20/17 History [Hydrocodon-Acetaminophen 5-325] Multivit-Min/Folic Acid/Biotin 1 tab PO DAILY 05/16/17 06/20/17 History [Women Multivit W-Biotin Gummy] Prochlorperazine Maleate 10 mg PO Q6H PRN 05/16/17 05/16/17 History [Compazine] Sucralfate [Carafate] 1 g PO QID 05/16/17 06/20/17 History Bumetanide Tab [Bumex Tab] 0.5 mg PO BID 06/20/17 06/20/17 History Docusate Sodium [Colace] 1 cap PO BID 06/20/17 06/20/17 History cephALEXin [Keflex] 500 PO TID 06/20/17 History Allergies Allergy/AdvReac Type Severity Reaction Status Date / Time sulfamethoxazole Allergy Unknown hives Verified 05/16/17 01:10 trimethoprim Allergy Unknown HIVES Verified 05/16/17 01:10 niacin AdvReac Intermediate HIVES Verified 05/16/17 01:10 Exam Vital Signs: Temperature 95.6 F L 06/20/17 04:00 Pulse Rate 74 06/20/17 04:00 Respiratory Rate 30 H 06/20/17 04:00 Blood Pressure 150/63 H 06/20/17 04:00 Pulse Oximetry 93 06/20/17 04:00 Height/Weight/BMI: Height 5 ft Weight 82.3 kg Body Mass Index 35.4 - Constitutional Present: mild distress (Increased WOB) - Routine HEENT Exam Head: Present: normocephalic, atraumatic Eye: Present: EOMI Comments: On a simple O2 mask - Routine Neck Exam Present: supple - Routine Respiratory Exam Present: accessory muscle use, dyspnea, decreased breath sounds (Especially R base), rhonchi, crackles, diminished air movement - Routine Cardiovascular Exam Present: tachycardia - Routine Abdominal Exam Present: soft, non distended, non tender - Routine Extremities Exam Present: cyanosis, clubbing, edema, pulses intact Comments: She has a dressing in place over R foot wound which was not disturbed at the time of my evaluation - Routine Skin Exam Present: intact Comments: moist with some diaphoresis noted by RN - Routine Neurological Exam Present: alert, CN II-XII intact. Absent: oriented X3 - Routine Psychiatric Exam Present: depressed, unable to assess - Additional findings Additional findings: Examination was performed using telemedicine equipment with the assistance of the bedside nurse Results - Labs CBC & Chem 7: 06/20/17 01:42 06/20/17 01:42 Assessment and Plan (1) Acute exacerbation of CHF (congestive heart failure) Problem details: HFpEF; valvular-MR Current visit: Yes Status: Acute (2) Hypoxemia Current visit: Yes Status: Acute Assessment and Plan: Angela is admitted in fair condition, a Longoria catheter is in place and will continue intravenous diuresis. She has had good urine output thus far, but unfortunately little relief to date in her dyspnea. We will need further elucidation in the morning of her home medication list, and confirmation of her status as currently undergoing chemotherapy for recurrent esophageal cancer. I have not ordered to continue additional Solu-Medrol, though this may be warranted, apparently she is on chronic daily prednisone but I cannot confirm this at this time. We will use an insulin sliding scale for now in regards to her diabetes. We will monitor her electrolytes and renal function closely, in hopes that her GFR remains stable or actually improves with diuresis. If it does not, this would be a bad prognostic sign. We will place a consult to social work for further elucidation of goals of care and plans for post discharge care. Further symptom medic supportive and diagnostic cares will be provided as the current workup, or changes in her clinical scenario indicate. DVT Prophylaxis: SCD's Resuscitation Status: Do Not Resuscitate - Physician Narrative Physician: Nikky Braun MD Narrative: Date: 06/20/17 Time: 1620 Dr. Mckeon's note reviewed. Mrs. Ball interviewed and examined. Her sister provide supplemental history and old records reviewed. Discussed with Dr. Leyva. CC: Dyspnea HPI: Mrs. Ball is well-known from prior hospitalizations. She has valvular heart disease with moderate MR and preserved ejection fraction. She was last hospitalized in mid May with acute hypoxic/hypercarbic respiratory failure due to pulmonary edema. During that admission lisinopril was discontinued due to hyperkalemia. She was discharged on Bumex 0.5 mg twice a day. She saw managing outpatient physician about a week after hospitalization and was told she was dehydrated but not dehydrated so I suspect she had some component of renal insufficiency in conjunction with volume overload. No change in medications was made at that time as far as I can tell although the patient is unclear about this. Dyspnea has been worsening progressively over the past 3 weeks and she's required nearly continuous use of 2 L supplemental oxygen whereas in the past she has used nocturnal oxygen only. She has not increased flow Rate be on that however. She's had cough off and on with some mucus production but denies chest pain. She denies peripheral lower extremity edema and reports her weight has been stable between 175 and 177 pounds. Her nebulizer at home has not been working adequately. Dyspnea increased yesterday prompting her sister to bring her to the emergency room where BNP was significantly elevated and x-ray revealed pulmonary edema and a large right pleural effusion. The patient has been hypoxic with oxygen saturations as low as 84% despite increasing supplemental oxygen requiring up to 10 L of oxygen per face mask. Diuresis was initiated overnight in conjunction with breathing treatments. PH/SH/FH: agree with that recorded/modified above by Dr. Mckeon. Patient's sisters or her DPOA. She has no history of tobacco, alcohol, or illicit drug use. ROS: 10 point review as recorded by Dr. Mckeon-little additional history could be obtained from the patient this morning. She chronically uses a walker and is on cephalexin for wounds on her feet, recent bone biopsy was negative for osteoporosis history of her sister EXAM: General-chronically ill-appearing elderly female, fatigued, respirations moderately labored; 97.7, 30, 148/96, 91% on 6 L, my evaluation HEENT-PERRL, EOMI, conjunctiva clear, sclera anicteric, conjugate gaze, facial structures symmetric, oropharynx clear, neck supple and without adenopathy Lungs-poor air flow with crackles about residential to two th[address] way up posteriorly and very diminished breath sounds residential up both lung cardoso were virtually no air flow is appreciated, no wheezing at the time of my exam Cardiac-regular rhythm, S1-S2, soft systolic murmur Abd-soft, nontender, diminished bowel sounds Ext-without lower extremity edema Skin-dressings present over the right great toe and right first metatarsal; small wounds/eschars just above the left lateral malleolus Musculoskeletal-very kyphotic, marked degenerative changes in the hands [id number] tremor and tremor right upper extremity present, facial structures grossly symmetric, sensation intact to light touch 4 extremities, weak civil rights investigator and dorsiflexion/plantarflexion-symmetric Psych-cooperative DATA: Hemoglobin 11.4, white count 8.9, sodium 147, potassium 4.7, BUN 41, creatinine 1.5 (up from recent baseline), AST 44, ALT is 97, troponin 0.022, proBNP 19,300 UA negative nitrate, +1 leukocyte esterase, 20-30 WBCs Chest x-ray with pulmonary edema, cardiomegaly, and bilateral pleural effusions by my review. EKG also reviewed by myself-paced rhythm. A/P: Pulmonary edema Acute/chronic hypoxic respiratory failure Acute/chronic diastolic valvular/CHF Hypernatremia Mitral regurgitation COPD Diabetes mellitus, chronic insulin therapy; peripheral neuropathy Diabetic foot wounds Hypertension Mrs. Ball's respiratory status is critically compromised; BiPAP is anticipated. Blood gas will be obtained and may require transfer to the ICU as was necessary during the prior hospitalization. Lasix discontinued and Bumex initiated, may require addition of Zaroxolyn. Case reviewed with Dr. Leyva-lisinopril will be resumed with close follow-up of electrolytes and renal function. If hyperkalemia should recur can alternately afterload reduce with combination of hydralazine and isosorbide. Last recent outpatient echocardiogram report being obtained from the office. Diuresis increasingly occurring at risk of renal compromise; respiratory failure worsening with each admission. Unclear if patient's sisters understand severity of patient's illness or that this is approaching a terminal status and that patient is critically ill. 45 minutes spent in patient care/critical care. Hospital Course Summary Disclaimer: The visit summary below is not to be considered part of the above Progress Note. Hospital Course: 06/20/17 Mrs. Ball is rehospitalized with pulmonary edema following several weeks of increasing dyspnea and hypoxia. She has underlying mitral regurgitation and diastolic/valvular heart disease in addition to multiple comorbid conditions. Diuresis initiated, lisinopril resumed at low dose for afterload reduction. Requiring high flow oxygen and aggressive breathing treatments. May require BiPAP and transferred to ICU. Critically ill.
[2017-06-20] MEDS ORDERED: ALBUTEROL 2.5mg/0.5ml (0.5%) NEB AEROSOL PRN (04:57)
[2017-06-20] MEDS: INSULIN ASPART 100unit/ml INJECTION SQ PRN ×3 (06:15→20:18)
[2017-06-20] MEDS ORDERED: ALBUTEROL 2.5mg/3ml (0.083%) NEB AEROSOL PRN (07:00)
--- NOTE | 2017-06-20 07:51 | XRay Report ---
Indication: dyspnea PROCEDURE: XR chest 1V: Encounter: Initial Comparison: 05/30/2017 Findings: Worsening bilateral airspace consolidation and increasing small effusions. Pulmonary vascularity is indistinct with redistribution. Chronic silhouette remains enlarged. Left pacemaker. Impression: Worsening severe CHF. .
[2017-06-20] MEDS ORDERED: FUROSEMIDE 20 MG/2 ML INJECTION IVP SCH (09:15)
[2017-06-20] MEDS: ACETAMINOPHEN 325 MG TABLET PO PRN ×2 (09:57→18:34)
[2017-06-20] MEDS ORDERED: POLYETHYL GLYCOL 3350 17gm PACKET PO PRN (12:20)
[2017-06-20] MEDS: LISINOPRIL 2.5 MG TABLET PO SCH (16:25)
[2017-06-20] MEDS: ALBUTEROL/IPRATROPIUM 2.5mg-0.5mg/3ml NEB AEROSOL PRN (16:36)
[2017-06-20] MEDS: SUCRALFATE 1 GM TABLET PO SCH ×2 (18:33→22:03)
[2017-06-20] MEDS: CARVEDILOL 12.5 MG TABLET PO SCH (18:33)
[2017-06-20] MEDS ORDERED: INSULIN DETEMIR 100unit/ml INJECTION SQ SCH (21:00)
[2017-06-21] MEDS: SUCRALFATE 1 GM TABLET PO SCH ×5 (05:08→21:06)
[2017-06-21] MEDS ORDERED: PredniSONE 20 MG TABLET PO SCH (08:00)
[2017-06-21] MEDS: LISINOPRIL 2.5 MG TABLET PO SCH (08:42)
[2017-06-21] MEDS: CARVEDILOL 12.5 MG TABLET PO SCH ×2 (08:42→17:53)
[2017-06-21] MEDS: AMIODARONE 200 MG TABLET PO SCH (08:43)
[2017-06-21] MEDS: SALINE FLUSH 10ml SYRINGE IVF PRN ×3 (08:43→21:06)
[2017-06-21] MEDS ORDERED: PredniSONE 20 MG TABLET PO ONE (09:00)
[2017-06-21] MEDS: INSULIN ASPART 100unit/ml INJECTION SQ PRN ×3 (11:10→21:07)
[2017-06-21] MEDS ORDERED: INSULIN ASPART 100unit/ml INJECTION SQ SCH (12:13)
[2017-06-21] MEDS ORDERED: SENNOSIDES 8.6 MG TABLET PO ONE (12:39)
--- NOTE | 2017-06-21 12:40 | Progress Note ---
- Date 06/21/17 Subjective: Patient is seen sitting in her chair before lunch. She states she feels much better today than she did when she came in. She reports she can't even remember anything from her admission. She is concerned that she has been hospitalized again so soon after her previous hospitalization. No chest pain, breathing is better, no nausea vomiting. Appetite is good. Tends to be constipated when she' s in the hospital. Hasn't had a bowel movement yet. Objective Vital signs: Temperature 96 F L 06/21/17 07:35 Pulse Rate 73 06/21/17 09:27 Respiratory Rate 36 H 06/21/17 07:35 Blood Pressure 150/70 H 06/21/17 07:35 Pulse Oximetry 91 06/21/17 07:35 Height/Weight/BMI: Height 1.52 m Weight 76.9 kg Body Mass Index 35.4 - Constitutional Present: no acute distress, well nourished, well developed - Routine Respiratory Exam Present: CTA bilaterally, rales (right base). Absent: wheezes - Routine Cardiovascular Exam Present: RRR. Absent: murmur - Routine Abdominal Exam Present: soft, normoactive bowel sounds, non distended. Absent: tenderness - Routine Extremities Exam Present: no edema, normal capillary refill - Routine Skin Exam Present: dry, warm - Routine Neurological Exam Present: alert, moving all extremities - Routine Lymphatic Exam Lymphatic: Absent: adenopathy - Routine Psychiatric Exam Present: normal affect, cooperative Results - Labs CBC & Chem 7: 06/21/17 05:20 06/21/17 05:20 - ABG Interpretation ABG results: 06/20/17 17:23 ABG pH 7.390 ABG pCO2 42 ABG pO2 62 L ABG HCO3 25 ABG Total CO2 26.7 ABG O2 Saturation 91.0 L ABG Base Excess 0.3 Assessment and Plan (1) Hypoxemia Current visit: Yes Status: Acute (2) Acute exacerbation of CHF (congestive heart failure) Problem details: HFpEF; valvular-MR Current visit: Yes Status: Acute Assessment and Plan: Assessment Pulmonary edema Acute/chronic hypoxic respiratory failure Acute/chronic diastolic valvular/CHF Hypernatremia Mitral regurgitation COPD Diabetes mellitus, chronic insulin therapy; peripheral neuropathy Diabetic foot wounds Hypertension CKD, stage 3-RLL 06/21/17 Plan She has had good diuresis with Bumex. Weight is down 6 kg. Currently requiring 6 L of oxygen. Usually on 2 L at home. Creatinine improved from 1.5 to 1.3 today. Her regular home insulin doses were resumed as patient is eating well and on steroids. Add senna and MiraLAX for bowel motivation. DVT Prophylaxis: SCD's Resuscitation Status: Do Not Resuscitate - Physician Narrative Physician: Nikky Braun MD Narrative: Date: 06/21/17 Time: 2200 I have independently evaluated and examined this patient. I reviewed the chart, the patient's history, and the INFORMATION ASSURANCE ANALYST/PA's documented findings as above. We discussed and formulated the assessment and plan as above with additions as below: Mrs. Ball is breathing much more comfortably today and reports no dyspnea although she's had no activity to challenge her breathing at this point. She denies wheezing or cough. Her appetite is good. She reports her goals are to get back to 2 L of oxygen before she goes home and to get as much fluid off as she can. Delightful elderly female, NAD, alert Respirations are nonlabored, good airflow, crackles care home up posteriorly on the right and present at the left base Marked kyphosis; no peripheral edema Telemetry strips reviewed by myself-generally paced rhythm although on one occasion she was in sinus rhythm. Can discontinue telemetry. Oxygenation significantly improved from yesterday-currently on 3 L with saturation of 98% Bumex decrease to twice a day, continue to follow electrolytes; chest x-ray in a.m. Taper steroids quickly-do not believe COPD a component of this admission; on 20 mg prednisone/d prior to admission-unclear why Hospital Course Summary Disclaimer: The visit summary below is not to be considered part of the above Progress Note. Hospital Course: 06/20/17 Mrs. Ball is rehospitalized with pulmonary edema following several weeks of increasing dyspnea and hypoxia. She has underlying mitral regurgitation and diastolic/valvular heart disease in addition to multiple comorbid conditions. Diuresis initiated, lisinopril resumed at low dose for afterload reduction. Requiring high flow oxygen and aggressive breathing treatments. May require BiPAP and transferred to ICU. Critically ill. 06/21/17 She has had good diuresis with Bumex. Weight is down 6 kg. Currently requiring 6 L of oxygen. Usually on 2 L at home. Creatinine improved from 1.5 to 1.3 today. Her regular home insulin doses were resumed as patient is eating well and on steroids. Add senna and MiraLAX for bowel motivation.
[2017-06-21] MEDS: POLYETHYL GLYCOL 3350 17gm PACKET PO SCH (12:59)
[2017-06-21] MEDS ORDERED: INSULIN ASPART 100unit/ml INJECTION SQ ONE (13:00)
[2017-06-21] MEDS: INSULIN ASPART 100unit/ml INJECTION SQ SCH (18:39)
[2017-06-21] MEDS ORDERED: FALL RISK - PHARMACY CONSULT XX ONE (21:00)
[2017-06-21] MEDS: SENNOSIDES 8.6 MG TABLET PO SCH (21:06)
[2017-06-21] MEDS: INSULIN DETEMIR 100unit/ml INJECTION SQ SCH (21:08)
[2017-06-22] MEDS: SUCRALFATE 1 GM TABLET PO SCH ×4 (06:16→21:09)
[2017-06-22] MEDS: SALINE FLUSH 10ml SYRINGE IVF PRN (06:16)
[2017-06-22] MEDS: PredniSONE 20 MG TABLET PO SCH (08:30)
[2017-06-22] MEDS: CARVEDILOL 12.5 MG TABLET PO SCH ×2 (08:31→17:56)
[2017-06-22] MEDS: LISINOPRIL 2.5 MG TABLET PO SCH (08:31)
[2017-06-22] MEDS: AMIODARONE 200 MG TABLET PO SCH (08:32)
[2017-06-22] MEDS: POLYETHYL GLYCOL 3350 17gm PACKET PO SCH (08:33)
[2017-06-22] MEDS: INSULIN ASPART 100unit/ml INJECTION SQ SCH ×3 (08:34→17:56)
--- NOTE | 2017-06-22 15:05 | XRay Report ---
Indication: pulmonary edema PROCEDURE: XR chest 1V: Encounter: Initial Comparison: 06/20/2017 Findings: There is cardiomegaly and pulmonary vascular congestion with mild interstitial palmar edema. There are probable small bilateral pleural effusions with bibasilar atelectasis, left greater than right. There is a left subclavian dual-lead pacemaker in place with the leads unchanged in position. Impression: Mild CHF with bilateral pleural effusions, overall the appearance is improved from prior study. .
--- NOTE | 2017-06-22 15:14 | Progress Note ---
- Date 06/22/17 Subjective: Feeling a little better today; breathing more easily, still on some 02. Slept well. Appetite not great. Weight down 1 kg from yesterday. Good UOP. No fevers. Objective Vital signs: Temperature 97.9 F 06/22/17 00:00 Pulse Rate 72 06/22/17 08:00 Respiratory Rate 16 06/22/17 08:00 Blood Pressure 112/60 06/22/17 08:00 Pulse Oximetry 99 06/22/17 08:00 Height/Weight/BMI: Height 1.52 m Weight 75.9 kg Body Mass Index 35.4 - Constitutional Present: no acute distress, well nourished, well developed - Routine HEENT Exam Head: Present: normocephalic, atraumatic Eye: Present: PERRL. Absent: conjunctival icterus ENT: Present: mucous membranes moist, oropharynx clear - Routine Respiratory Exam Present: dyspnea (with speech ), decreased breath sounds. Absent: rhonchi, crackles - Routine Cardiovascular Exam Present: RRR - Routine Abdominal Exam Present: soft, non distended, non tender - Routine Extremities Exam Present: edema (trace BLE), pulses intact - Routine Skin Exam Present: dry, warm. Absent: rash - Routine Neurological Exam Present: alert, oriented X3, moving all extremities, normal speech - Routine Psychiatric Exam Present: normal affect Results - Labs CBC & Chem 7: 06/21/17 05:20 06/22/17 04:30 - ABG Interpretation ABG results: 06/20/17 17:23 ABG pH 7.390 ABG pCO2 42 ABG pO2 62 L ABG HCO3 25 ABG Total CO2 26.7 ABG O2 Saturation 91.0 L ABG Base Excess 0.3 Assessment and Plan Assessment and Plan: Assessment Pulmonary edema; improved clinically Acute/chronic hypoxic respiratory failure; on 2L NC now Acute/chronic diastolic valvular/CHF Hypernatremia; Na 147 Mitral regurgitation COPD Diabetes mellitus, chronic insulin therapy; peripheral neuropathy Diabetic foot wounds Hypertension CKD, stage 3-RLL 06/21/17 Plan She has had good diuresis with Bumex. Weight is down another kg today. Now back to her home 2L NC 02. Creatinine improved to 1.1 today (cardiorenal) although BUN elevated at 51. Her regular home insulin doses were resumed as patient is eating well and on steroids; stable blood sugars. Continue senna and miralax for constipation. Change to po bumex and monitor weight, renal function. PT evaluation and increased activity as tolerated. DVT Prophylaxis: SCD's GI Prophylaxis: Protonix Resuscitation Status: Do Not Resuscitate - Physician Narrative Physician: Lucila Baez MD Narrative: Date: 06/22/17 Time: 1510 Hospital Course Summary Disclaimer: The visit summary below is not to be considered part of the above Progress Note. Hospital Course: 06/20/17 Mrs. Ball is rehospitalized with pulmonary edema following several weeks of increasing dyspnea and hypoxia. She has underlying mitral regurgitation and diastolic/valvular heart disease in addition to multiple comorbid conditions. Diuresis initiated, lisinopril resumed at low dose for afterload reduction. Requiring high flow oxygen and aggressive breathing treatments. May require BiPAP and transferred to ICU. Critically ill. 06/21/17 She has had good diuresis with Bumex. Weight is down 6 kg. Currently requiring 6 L of oxygen. Usually on 2 L at home. Creatinine improved from 1.5 to 1.3 today. Her regular home insulin doses were resumed as patient is eating well and on steroids. Add senna and MiraLAX for bowel motivation. 06/22/17 She has had good diuresis with Bumex. Weight is down another kg today. Now back to her home 2L NC 02. Creatinine improved to 1.1 today (cardiorenal) although BUN elevated at 51. Her regular home insulin doses were resumed as patient is eating well and on steroids; stable blood sugars. Continue senna and miralax for constipation. Change to po bumex and monitor weight, renal function. PT evaluation and increased activity as tolerated.
[2017-06-22] MEDS: SENNOSIDES 8.6 MG TABLET PO SCH (21:09)
[2017-06-22] MEDS: INSULIN DETEMIR 100unit/ml INJECTION SQ SCH (21:10)
[2017-06-22] MEDS: INSULIN ASPART 100unit/ml INJECTION SQ PRN (21:10)
[2017-06-23] MEDS: SALINE FLUSH 10ml SYRINGE IVF PRN ×2 (05:33→20:35)
[2017-06-23] MEDS: SUCRALFATE 1 GM TABLET PO SCH ×4 (05:35→20:34)
[2017-06-23] MEDS: CARVEDILOL 12.5 MG TABLET PO SCH ×2 (09:38→18:20)
[2017-06-23] MEDS: PredniSONE 20 MG TABLET PO SCH (09:38)
[2017-06-23] MEDS: BUMETANIDE 1 MG TABLET PO SCH ×2 (09:39→14:57)
[2017-06-23] MEDS: AMIODARONE 200 MG TABLET PO SCH (09:39)
[2017-06-23] MEDS: INSULIN ASPART 100unit/ml INJECTION SQ SCH ×3 (09:40→18:10)
[2017-06-23] MEDS: LISINOPRIL 2.5 MG TABLET PO SCH (09:41)
[2017-06-23] MEDS: POLYETHYL GLYCOL 3350 17gm PACKET PO SCH (09:53)
--- NOTE | 2017-06-23 13:29 | Progress Note ---
- Date 06/23/17 Subjective: Feeling better overall. Frustrated that she takes her meds at home but decompensates anyway. Discussed daily weights, salt avoidance, fluid restriction. Transitioned to po bumex. Continues on NC 02. Denies fevers, chills, dyspnea at rest. Has not been up OOB outside of going to the chair however. Objective Vital signs: Temperature 95.8 F L 06/23/17 07:20 Pulse Rate 66 06/23/17 07:20 Respiratory Rate 18 06/23/17 07:20 Blood Pressure 136/90 H 06/23/17 07:20 Pulse Oximetry 100 06/23/17 07:20 Height/Weight/BMI: Height 1.52 m Weight 76 kg Body Mass Index 35.4 - Constitutional Present: no acute distress, well nourished, well developed, cooperative - Routine HEENT Exam Head: Present: normocephalic, atraumatic Eye: Present: PERRL, normal accommodation. Absent: conjunctival icterus ENT: Present: mucous membranes moist, oropharynx clear - Routine Respiratory Exam Present: decreased breath sounds, crackles (right lung base). Absent: rhonchi, wheezes - Routine Cardiovascular Exam Present: RRR. Absent: JVD - Routine Abdominal Exam Present: soft, non distended, non tender - Routine Extremities Exam Present: edema (trace BLE) - Routine Skin Exam Present: dry, warm. Absent: rash - Routine Neurological Exam Present: alert, oriented X3, moving all extremities, normal speech - Routine Psychiatric Exam Present: normal affect Results - Labs CBC & Chem 7: 06/23/17 04:19 06/23/17 04:19 Assessment and Plan Assessment and Plan: Assessment Pulmonary edema; improved clinically Acute/chronic hypoxic respiratory failure; on 2L NC now Acute/chronic diastolic valvular/CHF Hypernatremia; Na improved to 145 Mitral regurgitation COPD Diabetes mellitus, chronic insulin therapy; peripheral neuropathy Diabetic foot wounds Hypertension CKD, stage 3 Plan Continue 02 support and bumex po dosing. Weight stable today. Cr stable at 1.1 although BUN elevated; encouraged po intake and ambulation today. Her regular home insulin doses were resumed as patient is eating well and on steroids; stable blood sugars. Continue senna and miralax for constipation. PT evaluation and increased activity as tolerated. Continue ACEI at low dose and monitor K levels. Discuss any further recommendations with cardiology tomorrow; likely can DC if doing well. Stop keflex; urine culture reviewed and negative with NGTD. DVT Prophylaxis: SCD's Resuscitation Status: Do Not Resuscitate - Physician Narrative Narrative: Date: 06/23/17 Time: 1326 Hospital Course Summary Disclaimer: The visit summary below is not to be considered part of the above Progress Note. Hospital Course: 06/20/17 Mrs. Ball is rehospitalized with pulmonary edema following several weeks of increasing dyspnea and hypoxia. She has underlying mitral regurgitation and diastolic/valvular heart disease in addition to multiple comorbid conditions. Diuresis initiated, lisinopril resumed at low dose for afterload reduction. Requiring high flow oxygen and aggressive breathing treatments. May require BiPAP and transferred to ICU. Critically ill. 06/21/17 She has had good diuresis with Bumex. Weight is down 6 kg. Currently requiring 6 L of oxygen. Usually on 2 L at home. Creatinine improved from 1.5 to 1.3 today. Her regular home insulin doses were resumed as patient is eating well and on steroids. Add senna and MiraLAX for bowel motivation. 06/22/17 She has had good diuresis with Bumex. Weight is down another kg today. Now back to her home 2L NC 02. Creatinine improved to 1.1 today (cardiorenal) although BUN elevated at 51. Her regular home insulin doses were resumed as patient is eating well and on steroids; stable blood sugars. Continue senna and miralax for constipation. Change to po bumex and monitor weight, renal function. PT evaluation and increased activity as tolerated. 06/23/17 Continue 02 support and bumex po dosing. Weight stable today. Cr stable at 1.1 although BUN elevated; encouraged po intake and ambulation today. Her regular home insulin doses were resumed as patient is eating well and on steroids; stable blood sugars. Continue senna and miralax for constipation. PT evaluation and increased activity as tolerated. Continue ACEI at low dose and monitor K levels. Discuss any further recommendations with cardiology tomorrow; likely can DC if doing well. Stop keflex; urine culture reviewed and negative with NGTD.
[2017-06-23] MEDS: INSULIN ASPART 100unit/ml INJECTION SQ PRN ×2 (16:20→20:34)
[2017-06-23] MEDS: SENNOSIDES 8.6 MG TABLET PO SCH (20:34)
[2017-06-23] MEDS: INSULIN DETEMIR 100unit/ml INJECTION SQ SCH (20:34)
[2017-06-24] MEDS: SUCRALFATE 1 GM TABLET PO SCH ×3 (05:58→17:09)
[2017-06-24] MEDS: SALINE FLUSH 10ml SYRINGE IVF PRN ×2 (06:02→08:48)
[2017-06-24 07:23] VITALS: TEMP 96.2; O2SAT 100
[2017-06-24] MEDS: ALBUTEROL/IPRATROPIUM 2.5mg-0.5mg/3ml NEB AEROSOL PRN (08:03)
[2017-06-24] MEDS: CARVEDILOL 12.5 MG TABLET PO SCH ×2 (08:38→17:09)
[2017-06-24] MEDS: LISINOPRIL 2.5 MG TABLET PO SCH (08:38)
[2017-06-24] MEDS: PredniSONE 20 MG TABLET PO SCH (08:38)
[2017-06-24] MEDS: AMIODARONE 200 MG TABLET PO SCH (08:38)
[2017-06-24] MEDS: BUMETANIDE 1 MG TABLET PO SCH ×2 (08:39→13:24)
[2017-06-24] MEDS: INSULIN ASPART 100unit/ml INJECTION SQ SCH ×3 (08:44→17:10)
[2017-06-24] MEDS: POLYETHYL GLYCOL 3350 17gm PACKET PO SCH (08:44)
--- NOTE | 2017-06-24 14:50 | Discharge Summary ---
Discharge Information Date of admission: 06/20/17 03:31 Anticipated date of discharge: 06/24/17 Attending Physician: Nikky Braun MD Primary care physician: Rachel Dietz DO Consults: - Discharge Diagnosis (1) Hypoxemia Status: Acute (2) Acute exacerbation of CHF (congestive heart failure) Status: Acute Pulmonary edema; improved clinically Acute/chronic hypoxic respiratory failure; on 2L NC now Acute/chronic diastolic valvular/CHF Hypernatremia; Na improved to 145 Mitral regurgitation COPD Diabetes mellitus, chronic insulin therapy; peripheral neuropathy Diabetic foot wounds Hypertension CKD, stage 3 - Laboratory Labs: 06/24/17 04:13 06/24/17 04:13 Laboratory Tests 06/20/17 06/22/17 06/24/17 01:42 04:30 04:13 Creatinine 1.5 H 1.1 D 1.1 Laboratory Tests 06/20/17 06/22/17 06/24/17 01:42 04:30 04:13 BUN 41.0 H 51.0 H* 53.0 H* Laboratory Tests 06/20/17 01:42 AST 44 H ALT 97 H B-Natriuretic Peptide 59607 H - Microbiology No growth on urine culture - Radiology Radiology: Date of Exam: 06/22/17 Indication: pulmonary edema PROCEDURE: XR chest 1V: Findings: There is cardiomegaly and pulmonary vascular congestion with mild interstitial palmar edema. There are probable small bilateral pleural effusions with bibasilar atelectasis, left greater than right. There is a left subclavian dual-lead pacemaker in place with the leads unchanged in position. Impression: Mild CHF with bilateral pleural effusions, overall the appearance is improved from prior study. Date of Exam: 06/20/17 Indication: dyspnea PROCEDURE: XR chest 1V: Findings: Worsening bilateral airspace consolidation and increasing small effusions. Pulmonary vascularity is indistinct with redistribution. Chronic silhouette remains enlarged. Left pacemaker. Impression: Worsening severe CHF. History of Present Illness HPI: Angela is an 82-year-old female patient of Dr. Carrasquillo. She was brought in by her sister who lives with her, with a report of 3 weeks of increasing progressive shortness of air and dyspnea on exertion. She does have a history of both oxygen dependent COPD and congestive heart failure, apparently her home nebulizer broke a couple of weeks ago. Her sister had just recently discovered this fact, and assumed that was the reason for her shortness of breath. However , in the emergency department she was significantly hypoxic, and her chest x- ray reveals a large right-sided pleural effusion, and extensive pulmonary vascular congestion. Her BNP was over 19,000. She was given steroids, breathing treatment, and 40 mg of IV Lasix after a Longoria catheter was placed. Her CODE STATUS was confirmed to be DO NOT RESUSCITATE. Her sister thought she had brought her list of home medications, however it turned out to be something else so we do not have an accurate medication list at this time. It sounds like she is on daily prednisone, and insulin for diabetes mellitus. Her sister saw her up to her room, and I saw the patient not long after her arrival on the medical floor, but she was unaccompanied by family at the time of my evaluation so the majority of the history is gleaned from the emergency providers report, as well as the bedside nurse. The patient herself is not a good historian at this time, she is hard of hearing and short of breath. Objective Vital signs: Temperature 96.2 F L 06/24/17 07:22 Pulse Rate 67 06/24/17 07:22 Respiratory Rate 18 06/24/17 08:03 Blood Pressure 138/66 06/24/17 07:22 Pulse Oximetry 100 06/24/17 08:03 Height/Weight/BMI: Height 1.52 m Weight 74.4 kg Body Mass Index 35.4 - Constitutional Present: no acute distress, well nourished, well developed - Routine HEENT Exam Head: Present: normocephalic, atraumatic - Routine Respiratory Exam Present: decreased breath sounds - Routine Cardiovascular Exam Present: RRR - Routine Abdominal Exam Present: soft, non distended, non tender - Routine Extremities Exam Present: no edema, normal capillary refill - Routine Skin Exam Present: dry, warm - Routine Neurological Exam Present: alert - Routine Lymphatic Exam Lymphatic: Absent: adenopathy - Routine Psychiatric Exam Present: normal affect, cooperative Hospital Course This is a general summary of the patient's hospital course. For more details refer to the complete medical record. Hospital course: 06/20/17 Mrs. Ball is rehospitalized with pulmonary edema following several weeks of increasing dyspnea and hypoxia. She has underlying mitral regurgitation and diastolic/valvular heart disease in addition to multiple comorbid conditions. Diuresis initiated, lisinopril resumed at low dose for afterload reduction. Requiring high flow oxygen and aggressive breathing treatments. May require BiPAP and transferred to ICU. Critically ill. 06/21/17 She has had good diuresis with Bumex. Weight is down 6 kg. Currently requiring 6 L of oxygen. Usually on 2 L at home. Creatinine improved from 1.5 to 1.3 today. Her regular home insulin doses were resumed as patient is eating well and on steroids. Add senna and MiraLAX for bowel motivation. 06/22/17 She has had good diuresis with Bumex. Weight is down another kg today. Now back to her home 2L . Creatinine improved to 1.1 today (cardiorenal) although BUN elevated at 51. Her regular home insulin doses were resumed as patient is eating well and on steroids; stable blood sugars. Continue senna and miralax for constipation. Change to po bumex and monitor weight, renal function. PT evaluation and increased activity as tolerated. 06/23/17 Continue 02 support and bumex po dosing. Weight stable today. Cr stable at 1.1 although BUN elevated; encouraged po intake and ambulation today. Her regular home insulin doses were resumed as patient is eating well and on steroids; stable blood sugars. Continue senna and miralax for constipation. PT evaluation and increased activity as tolerated. Continue ACEI at low dose and monitor K levels. Discuss any further recommendations with cardiology tomorrow; likely can DC if doing well. Stop keflex; urine culture reviewed and negative with NGTD. 06/24/17 Patient dismissed home today with home health. She's had borderline low fasting blood sugars while hospitalized. Getting 20 units Levemir at at bedtime. Her A1c is excellent. Will decrease her home Levemir dosing to 16 units at bedtime. She should continue Keflex per wound care clinic for a ten-day course ending June 29. Her Bumex dose is increased to 1 mg twice a day as opposed to previous 0.5 mg twice a day. This may need to be decreased depending on her labs and how she does. Lisinopril 2.5 mg restarted during this hospitalization. Time spent with patient: discharge greater than 30 minutes Resuscitation Status: Do Not Resuscitate Discharge Plan - Discharge Disposition Discharge Date: 06/24/17 Disposition: 86 Home Health Service *Condition: Stable Reason For Visit (Visit label in EMR): SOA - Discharge Medications *Discharge Medications: New Lisinopril [Prinivil] 2.5 mg PO DAILY #30 tab Bumetanide Tab [Bumex Tab] 1 mg PO [id number] #60 tab Continue Ascorbic Acid 500 mg PO DAILY #0 Carvedilol 12.5 mg PO BID #0 Acetaminophen [Acetaminophen 8 Hour] 650 mg PO DAILY PRN #0 PRN Reason: PAIN Amiodarone [Pacerone] 200 mg PO DAILY #30 tab Vitamin E 400 unit PO DAILY Mirtazapine [Remeron] 15 mg PO HS Hydrocodone/Acetaminophen [Hydrocodon-Acetaminophen 5-325] 1 tab PO Q4H PRN PRN Reason: Pain Ferrous Sulfate 325 mg PO TID Fenofibrate [Lofibra] 160 mg PO DAILY CephALEXin [Keflex] 500 mg PO TID #21 cap cephALEXin [Keflex] 500 PO TID diphenhydrAMINE HCl [Benadryl] 25 mg PO QID PRN #0 PRN Reason: ITCHING Amlodipine Besylate 2.5 mg PO DAILY #0 Calcium Carbonate/Vitamin D3 [Calcium 600-Vit D3 200 Tablet] 1 tab PO TID #0 Insulin Aspart [NovoLOG] 6 unit SQ WL #0 Insulin Aspart [NovoLOG] 6 unit SQ WS #0 Ipratropium/Albuterol Sulfate [Iprat-Albut 0.5-3(2.5) mg/3 ml] 1 vial AEROSOL QID PRN #0 PRN Reason: PRN ORDERS LORazepam [Lorazepam] 1 mg PO HS PRN #0 PRN Reason: ANXIETY Polyethylene Glycol 3350 [Miralax] 17 g PO DAILY PRN #0 PRN Reason: CONSTIPATION Bisacodyl 10 mg RECTALLY DAILY PRN #0 PRN Reason: CONSTIPATION Insulin Aspart [NovoLOG] 6 unit SQ WB #0 [place]-3 Fatty Acids [Fish Oil Concentrate] 1,000 mg PO TID Albuterol Neb (0.083%) [Proventil Neb (0.083%)] 2.5 mg AEROSOL Q6HR Multivit-Min/Folic Acid/Biotin [Women Multivit W-Biotin Gummy] 1 tab PO DAILY Sucralfate [Carafate] 1 g PO QID Docusate Sodium [Colace] 1 cap PO BID Changed Insulin Detemir [Levemir] 16 unit SQ HS #0 Discontinued guaiFENesin [Mucinex] 600 mg PO Q12H #0 Mupirocin Cream [Bactroban 2% Cream] 1 applicatio TOP TID Prochlorperazine Maleate [Compazine] 10 mg PO Q6H PRN PRN Reason: Nausea Bumetanide Tab [Bumex Tab] 0.5 mg PO BID Yves/Polym/Bacitracin Oint Pckt [Neosporin] 1 applicatio Nystatin Oral Liq. [Mycostatin] 5 ml PO QID 10 Days #1 bottle PredniSONE [Deltasone] 20 mg PO WB #6 tab - Discharge Packet/Instructions *Diet: Diabetic diet *Activity: As tolerated *Pain Management/Treatment: N/a *Wound Care: N/a Additional Instructions: Your Bumex dose has been increased to 1 mg 2 times a day. You were started on new medication for your heart called lisinopril. It is to be taken 1 pill daily. Your insulin dose at nighttime has been decreased to 16 units. Your antibiotic -Keflex (cephalexin)- is supposed to be continued through June 29. Take 1 pill 3 times a day. If you do not have enough medication to finish your course, please call the wound care center. *Expected Signs/Symptoms: N/a *Notify Physician if: You have increasing shortness of breath *During Business Hours Contact: Dr. Dietz *After Business Hours Contact: Dr. Dietz's office and follow after-hours instructions *Pending Lab/Results: No Pending Lab - Referrals/Follow Up *Referrals/Follow Up: Rachel Dietz DO [Family Provider] - 1 Week (Please schedule patient to see Dr. Dietz next week. She will need a BMP at that visit. APPOINTMENT WITH DR. DIETZ ON 07/01/2017 AT 1:40 PM (CHECK-IN AT 1:30 PM, WILL HAVE LAB DRAWN FOR A BMP) [phone]) Wound Care,[facility] [Non-Staff] - (needs appt this Wed if she doesn't already have one. APPOINTMENT WITH DR. ORNELAS AT 9:30 AM ON 06/26/2017 AT WOUND CLINIC) - Patient Handouts Patient Handouts: Shortness of Breath (GEN) - Dismissal Complete Discharge Instructions are:: Complete Physician Narrative - Narrative Attestation Narrative: Date: 06/24/17 Time: 2250 I have independently evaluated and examined this patient. I reviewed the chart, the patient's history, and the [employer]/PA's documented findings as above. We discussed and formulated the assessment and plan as above with additions as below: Mrs. Ball reports that she feels good today and denies dyspnea at rest and with minimal activity. She is on 2 L supplemental oxygen which is what she has been wearing at home for the past month. Oxygen saturation when seen this morning was 100%. She denied cough or lower extremity edema. She reports that she has a tendency to have low blood sugars occasionally in the mornings at home but after eating she rarely is low. NAD, alert Respirations nonlabored, good airflow, breath sounds diminished at the bases bilaterally No peripheral edema at the ankles Stable for discharge as discussed above. Is tolerating resumption of lisinopril at a dose of 2.5 mg daily-afterload reduction will be important on an ongoing basis due to the patient's underlying mitral regurgitation. Discharge weight 74.4 kg but the patient is asked to check her weight as soon as she arrives home for baseline on her home scale. To follow up with Dr. Leyva as previously instructed or as notified by his office. Please note cephalexin dose was modified during the hospitalization due to renal insufficiency.
[2017-06-24] MEDS: INSULIN ASPART 100unit/ml INJECTION SQ PRN (15:12)
[2017-06-24 16:56] VITALS: BP 145/70; PULSE 84; RESP 16
[2017-06-25] MEDS ORDERED: PredniSONE 10 MG TABLET PO SCH (08:00)
== END 2017-06-24 17:25 | disposition home health service (06) | DRG 291 ==
LOC: ED 00:58 → MED 03:31
PROVIDERS: ADMIT Internal Medicine; ATTEND Internal Medicine

== ENCOUNTER 2017-06-27 16:16 | Observation (INO) ==
[2017-06-27] MEDS ORDERED: SALINE FLUSH 10ml SYRINGE IVF PRN (16:36)
[2017-06-27] MEDS ORDERED: FUROSEMIDE 40 MG/4 ML INJECTION IVP ONE (16:36)
--- NOTE | 2017-06-27 17:08 | Emergency Department Report ---
Cardiac General HPI - General Chief Complaint: Medical Emergency Stated Complaint: problems with chf Time Seen by Provider: 06/27/17 16:35 Source: patient, RN notes reviewed, old records reviewed Mode of arrival: ambulatory Limitations: no limitations - History of Present Illness HPI narrative: 82yo woman presents to the ER for evaluation of 6# weight gain in 48hrs. Pt was released from this hospital 48hours ago after an acute CHF exacerbation. In the intervening time, pt has gained 3# daily. Pt was told to present for evaluation for weight gain that is this aggressive. Occurred At: home Onset (ago): day(s) (2) Duration: constant Severity: similar to previous episodes Activites at Onset: none Nitro Today: no nitro taken today Associated Symtoms: denies other symptoms History of Similar Symptoms: Yes - Related Data Home Medications Medication Instructions Recorded Confirmed Ascorbic Acid 500 mg PO DAILY #0 08/03/15 06/27/17 diphenhydrAMINE HCl [Benadryl] 25 mg PO QID PRN #0 08/03/15 06/27/17 Calcium Carbonate/Vitamin D3 1 tab PO TID #0 07/25/16 06/27/17 [Calcium 600-Vit D3 200 Tablet] Carvedilol 12.5 mg PO BID #0 07/25/16 06/27/17 Insulin Aspart [NovoLOG] 6 unit SQ TIDWM #0 07/25/16 06/27/17 Acetaminophen [Acetaminophen 8 650 mg PO DAILY PRN #0 08/17/16 06/27/17 Hour] Albuterol Neb (0.083%) [Proventil 2.5 mg AEROSOL Q6HR 02/27/17 06/27/17 Neb (0.083%)] Mirtazapine [Remeron] 15 mg PO HS 02/27/17 06/27/17 [place]-3 Fatty Acids [Fish Oil 1,000 mg PO TID 02/27/17 06/27/17 Concentrate] Fenofibrate [Lofibra] 160 mg PO DAILY 05/16/17 06/27/17 Ferrous Sulfate 325 mg PO TID 05/16/17 06/27/17 Hydrocodone/Acetaminophen 1 tab PO Q4H PRN 05/16/17 06/27/17 [Hydrocodon-Acetaminophen 5-325] Multivit-Min/Folic Acid/Biotin 1 tab PO DAILY 05/16/17 06/27/17 [Women Multivit W-Biotin Gummy] Docusate Sodium [Colace] 100 mg PO BID 06/20/17 06/27/17 cephALEXin [Keflex] 500 mg PO TID 06/20/17 06/27/17 Albuterol/Ipratropium [Duoneb] 1 unit AEROSOL QID PRN 06/27/17 06/27/17 Amlodipine [Norvasc] 2.5 mg PO DAILY 06/27/17 06/27/17 Bisacodyl Supp [Dulcolax] 10 mg RECTALLY DAILY PRN 06/27/17 06/27/17 LORazepam [Ativan] 0.5 mg PO HS PRN 06/27/17 06/27/17 Peg 3350 238 G Bottle [Miralax] 17 gm PO DAILY PRN 06/27/17 06/27/17 Sucralfate [Carafate] 1 gm PO QID 06/27/17 06/27/17 Vitamin E [Vitamin E] 400 unit PO DAILY 06/27/17 06/27/17 Previous Rx's Medication Instructions Recorded Amiodarone [Pacerone] 200 mg PO DAILY #30 tab 08/22/16 Bumetanide Tab [Bumex Tab] 1 mg PO [id number] #60 tab 06/24/17 Insulin Detemir [Levemir] 16 unit SQ HS #0 06/24/17 Lisinopril [Prinivil] 2.5 mg PO DAILY #30 tab 06/24/17 Allergies Allergy/AdvReac Type Severity Reaction Status Date / Time sulfamethoxazole Allergy Unknown hives Verified 06/27/17 16:42 trimethoprim Allergy Unknown HIVES Verified 06/27/17 16:42 niacin AdvReac Intermediate HIVES Verified 06/27/17 16:42 Review of Systems All systems: reviewed and negative except as stated Constitutional: Reports: as per HPI, weight change. Denies: fever, chills, weakness, night sweats Cardiovascular: Reports: as per HPI. Denies: chest pain, palpitations, dyspnea on exertion, orthopnea, edema, syncope, paroxysmal nocturnal dyspnea PFSH Patient Stated Medical History Hearing Loss Yes: hearing aids Cardiac Arrhythmia Yes: afib Congestive Heart Failure Yes Hypertension Yes Chronic Obstructive Pulmonary Yes Disease (COPD) Sleep Apnea Yes Diabetes Mellitus Type 1 Yes Diabetes Mellitus Type 2 Yes Constipation Yes Gastroesophageal Reflux Yes Disease Hx Incontinence Yes Hx Urinary Tract Infection Yes Cellulitis Yes: foot MRSA Yes Sepsis Yes Other Yes: removal of PAC Rt chest Clinic Medical History (Last Updated 02/11/17 @ 18:53 by Zoe Rodriguez [facility], [facility]) Diabetes (Chronic Medical) Heart disease (Chronic Medical) Neuropathy (Chronic Medical) Surgical History: Bilateral cataract extraction-2006. Appendectomy. Hysterectomy-2003. Cystoscopy 2008. Cardiac catheter-2008. EGD and diagnosis of esophageal cancer-2007. Port-A-Cath placement-2007. Bilateral toes amputations Family History: Family History (Last Reviewed 06/20/17 @ 16:33 by Nikky Braun MD) Father CAD (coronary artery disease) Mother CAD (coronary artery disease) Sister Parkinsons disease Brother Asthma - Social History Current residence: Apartment/Private Home Physical Exam - Limitations Limitations: no limitations - General General appearance: alert, in no apparent distress, obese - Normal Exams: Head:: Normocephalic without trauma Eyes:: Pupils are PERRLA w/ EOMI, No scleral icterus, irritation, or foreign bodies noted ENMT:: No facial trauma, nasal exudates, pharyngeal erythema, or exudates are noted Neck:: Full range of motion, without adenopathy Lymphatic:: No lymphadenopathy Musculoskeletal:: No tenderness, or deformity noted, good range of motion Integumentary:: No rashes, hives, or bruising noted Neurological:: Patient is alert, and oriented Psychiatric:: Patient exhibits, appropriate attention Course - Consultations Consultation #1: Hospitalist: Will admit pt for observation and diuresis. Time: 17:20 Vital Signs Temperature 97.8 F 06/27/17 16:20 Pulse Rate 84 06/27/17 16:20 Respiratory Rate 19 06/27/17 16:20 Blood Pressure 138/61 06/27/17 16:20 Pulse Oximetry 95 06/27/17 16:20 Temperature 97.8 F 06/27/17 16:20 Pulse Rate 63 06/27/17 17:01 Respiratory Rate 24 06/27/17 17:01 Blood Pressure 131/62 06/27/17 17:01 Pulse Oximetry 97 06/27/17 17:01 Cardiac General - MDM Narrative Medical decision making narrative: Pt with 6# weight gain in the last 48hrs following recent d/c from hospital for CHF exacerbation. Pt has acute on chronic renal failure; this is likely contributing to pts wt gain. Discussed local admission vs txfr for dialysis with hospitalist; will admit locally for diuresis. - Differential Diagnosis Differential diagnosis: Likely: palpitations, anxiety, sinus tachycardia, ventricular tachycardia (CHF exacerbation) - Medical Records Attestation: I reviewed the patient's medical records. - Lab Data Attestation: I reviewed the patient's lab results. Result diagrams: 06/27/17 16:44 06/27/17 16:44 Lab Results 06/27/17 06/27/17 Range/Units 16:44 16:44 WBC 10.0 (4.5-11.0) T/MM3 RBC 2.97 L (4.00-5.20) M/MM3 Hgb 9.9 L (12-16) GM/DL Hct 30.6 L (36-46) % MCV 103.0 H (80-100) UM3 MCH 33.3 (26-34) UUG MCHC 32.4 (31-37) GM/DL RDW Std Deviation 52.3 H (36.9-50.2) FL Plt Count 215 (130-400) T/MM3 MPV 10.6 (9.4-12.4) UM3 Immature Gran % (Auto) Not performed Neut % (Auto) Not performed Lymph % (Auto) Not performed [place] % (Auto) Not performed Eos % (Auto) Not performed Baso % (Auto) Not performed Neut # (Auto) Not performed Lymph # (Auto) Not performed [place] # (Auto) Not performed Eos # (Auto) Not performed Baso # (Auto) Not performed Abs Immat Gran (auto) Not performed Neutrophils % (Manual) 56.0 (33-66) % Band Neutrophils % 3.0 (0-6) % Lymphocytes % (Manual) 27.0 (23-45) % Monocytes % (Manual) 11.0 H (0-9.0) % Metamyelocytes % 1.0 H (0-0) % Myelocytes % 2.0 H (0-0) % Neutrophils # (Manual) 5.6 (1.8-7.7) T/MM3 Band Neutrophils # 0.3 T/MM3 Lymphocytes # (Manual) 2.7 (1-4.8) T/MM3 Monocytes # (Manual) 1.1 H (0-0.8) T/MM3 Metamyelocytes # 0.1 T/MM3 Myelocytes # 0.2 T/MM3 RBC Morph Comment Normal Turbidity 22 H (0-20) Sodium 142 (134-144) MEQ/L Potassium 4.3 (3.6-5) MEQ/L Chloride 110 H (98-107) MEQ/L Carbon Dioxide 23 (22-30) MEQ/L Anion Gap 9 (5-15) MEQ/L BUN 62.0 H* (7-17) MG/DL Creatinine 1.7 H (0.7-1.2) MG/DL GFR Calculation 29 BUN/Creatinine Ratio 37 H (6-26) RATIO Glucose 137 H (65-110) MG/DL Calculated Osmolality 293 H (261-280) MOSM/KG Calcium 8.4 (8.4-10.2) MG/DL Icterus Index < 2 (0-7) Troponin I < 0.012 (0-0.12) ng/ml B-Natriuretic Peptide 4010 H (0-175) pg/mL Specimen Hemolysis < 15 (0-25) - Radiology Data Attestation: I reviewed the patient's radiology results. CXR: Interval improvement in pts pulmonary congestion. B/l LL effusions. - EKG Data EKG #1 EKG attestation: Yes: I reviewed and interpreted this EKG. EKG results narrative: Electronically paced Disposition Clinical Impression: CKD (chronic kidney disease) stage 3, GFR 30-59 ml/min Acute exacerbation of CHF (congestive heart failure) Qualifiers: Congestive heart failure type: unspecified Qualified Code(s): I50.9 - Heart failure, unspecified Disposition: 02 To [facility] [place] Language: [place] Citizen Prescriptions: No Action Ascorbic Acid 500 mg PO DAILY #0 Carvedilol 12.5 mg PO BID #0 Acetaminophen [Acetaminophen 8 Hour] 650 mg PO DAILY PRN #0 PRN Reason: PAIN Amiodarone [Pacerone] 200 mg PO DAILY #30 tab Mirtazapine [Remeron] 15 mg PO HS Hydrocodone/Acetaminophen [Hydrocodon-Acetaminophen 5-325] 1 tab PO Q4H PRN PRN Reason: Pain Ferrous Sulfate 325 mg PO TID Fenofibrate [Lofibra] 160 mg PO DAILY cephALEXin [Keflex] 500 mg PO TID Insulin Detemir [Levemir] 16 unit SQ HS #0 Lisinopril [Prinivil] 2.5 mg PO DAILY #30 tab Vitamin E [Vitamin E] 400 unit PO DAILY Bisacodyl Supp [Dulcolax] 10 mg RECTALLY DAILY PRN PRN Reason: Constipation Peg 3350 238 G Bottle [Miralax] 17 gm PO DAILY PRN PRN Reason: Constipation LORazepam [Ativan] 0.5 mg PO HS PRN PRN Reason: Anxiety Albuterol/Ipratropium [Duoneb] 1 unit AEROSOL QID PRN PRN Reason: Shortness Of Air/Wheezing Amlodipine [Norvasc] 2.5 mg PO DAILY Sucralfate [Carafate] 1 gm PO QID diphenhydrAMINE HCl [Benadryl] 25 mg PO QID PRN #0 PRN Reason: ITCHING Calcium Carbonate/Vitamin D3 [Calcium 600-Vit D3 200 Tablet] 1 tab PO TID #0 Insulin Aspart [NovoLOG] 6 unit SQ TIDWM #0 [place]-3 Fatty Acids [Fish Oil Concentrate] 1,000 mg PO TID Albuterol Neb (0.083%) [Proventil Neb (0.083%)] 2.5 mg AEROSOL Q6HR Multivit-Min/Folic Acid/Biotin [Women Multivit W-Biotin Gummy] 1 tab PO DAILY Docusate Sodium [Colace] 100 mg PO BID Bumetanide Tab [Bumex Tab] 1 mg PO [id number] #60 tab Referrals: Rachel Dietz DO [Family Provider] - Time of Disposition: 17:29 - Seen By: physician
[2017-06-27] MEDS ORDERED: BUMETANIDE 2.5mg/10ml INJECTION IV ONE (18:42)
[2017-06-27] MEDS ORDERED: SALINE FLUSH 10ml SYRINGE IV PRN (18:42)
[2017-06-27] MEDS ORDERED: ALBUTEROL/IPRATROPIUM 2.5mg-0.5mg/3ml NEB AEROSOL PRN (18:42)
[2017-06-27] MEDS ORDERED: HEPARIN 5,000unit/ml 1ml INJECTION SUB-Q SCH (18:42)
[2017-06-27 18:50] VITALS: BMI 29.7
--- NOTE | 2017-06-27 21:11 | XRay Report ---
EXAM: XR chest 2V COMPARISON: 06/22/2017. 06/20/2017. 08/03/2014. HISTORY: Dyspnea . FINDINGS: The heart is enlarged. Mitral spinal calcifications are noted. The pulmonary vascularity appears unremarkable. The lungs are clear. There is minimal blunting of the calcified angles. This is improved compared to the prior exam. There is no evidence for a pneumothorax. Mild endplate sclerosis of the thoracic spine is noted. IMPRESSION: 1. Trace of pleural effusions which have improved since prior exam. 2. Cardiomegaly. [place] [facility] [place]
--- NOTE | 2017-06-27 21:48 | History & Physical Report ---
History of Present Illness Date: 06/27/17 Chief complaint: shortness of breath HPI: Mrs. Ball is an 82-year-old female with known congestive heart failure to our service. She was just in hospital for diuresis and management of her CHF and was discharged on Saturday. She comes back 72 hours later 6 pounds heavier and having increased work breathing. She never has any complaints of the lower extremities feeling particularly fluid overloaded but does feel heavier and exhausted. She denies fevers chills nausea vomiting systemic constitutional symptoms. She has been taking her medicines as she has been directed. The ER she is very reliant on nasal cannula oxygen to keep of breath Review of Systems All systems PM: 10-point ROS was reviewed, no additional remarkable complaints except - Constitutional Constitutional: Present: as per HPI Past Medical History Patient Stated Medical History Hearing Loss Yes: hearing aids Cardiac Arrhythmia Yes: afib Congestive Heart Failure Yes Hypertension Yes Chronic Obstructive Pulmonary Yes Disease (COPD) Sleep Apnea Yes Diabetes Mellitus Type 1 Yes Diabetes Mellitus Type 2 Yes Gastroesophageal Reflux Yes Disease Hx Incontinence Yes Hx Urinary Tract Infection Yes Cellulitis Yes: foot MRSA Yes Sepsis Yes Other Yes: removal of PAC Rt chest Clinic Medical History (Last Updated 02/11/17 @ 18:53 by Zoe Rodriguez [facility]) Diabetes (Chronic Medical) Heart disease (Chronic Medical) Neuropathy (Chronic Medical) Surgical History: Bilateral cataract extraction-2006. Appendectomy. Hysterectomy-2003. Cystoscopy 2008. Cardiac catheter-2008. EGD and diagnosis of esophageal cancer-2007. Port-A-Cath placement-2007. Bilateral toes amputations Family History: Family History (Last Reviewed 06/20/17 @ 16:33 by Nikky Braun MD) Father CAD (coronary artery disease) Mother CAD (coronary artery disease) Sister Parkinsons disease Brother Asthma Family History Updates: Reviewed and without significant relevant data - Social History Smoking status: Former smoker Substance use type: does not use Alcohol intake frequency: does not drink Medications Home Medications Medication Instructions Recorded Confirmed Type Ascorbic Acid 500 mg PO DAILY #0 08/03/15 06/27/17 History diphenhydrAMINE HCl [Benadryl] 25 mg PO QID PRN #0 08/03/15 06/27/17 History Calcium Carbonate/Vitamin D3 1 tab PO TID #0 07/25/16 06/27/17 History [Calcium 600-Vit D3 200 Tablet] Carvedilol 12.5 mg PO BID #0 07/25/16 06/27/17 History Insulin Aspart [NovoLOG] 6 unit SQ TIDWM #0 07/25/16 06/27/17 History Acetaminophen [Acetaminophen 8 650 mg PO DAILY PRN #0 08/17/16 06/27/17 History Hour] Albuterol Neb (0.083%) [Proventil 2.5 mg AEROSOL Q6HR 02/27/17 06/27/17 History Neb (0.083%)] Mirtazapine [Remeron] 15 mg PO HS 02/27/17 06/27/17 History [place]-3 Fatty Acids [Fish Oil 1,000 mg PO TID 02/27/17 06/27/17 History Concentrate] Fenofibrate [Lofibra] 160 mg PO DAILY 05/16/17 06/27/17 History Ferrous Sulfate 325 mg PO TID 05/16/17 06/27/17 History Hydrocodone/Acetaminophen 1 tab PO Q4H PRN 05/16/17 06/27/17 History [Hydrocodon-Acetaminophen 5-325] Multivit-Min/Folic Acid/Biotin 1 tab PO DAILY 05/16/17 06/27/17 History [Women Multivit W-Biotin Gummy] Docusate Sodium [Colace] 100 mg PO BID 06/20/17 06/27/17 History cephALEXin [Keflex] 500 mg PO TID 06/20/17 06/27/17 History Albuterol/Ipratropium [Duoneb] 1 unit AEROSOL QID PRN 06/27/17 06/27/17 History Amlodipine [Norvasc] 2.5 mg PO DAILY 06/27/17 06/27/17 History Bisacodyl Supp [Dulcolax] 10 mg RECTALLY DAILY PRN 06/27/17 06/27/17 History LORazepam [Ativan] 0.5 mg PO HS PRN 06/27/17 06/27/17 History Peg 3350 238 G Bottle [Miralax] 17 gm PO DAILY PRN 06/27/17 06/27/17 History Sucralfate [Carafate] 1 gm PO QID 06/27/17 06/27/17 History Vitamin E [Vitamin E] 400 unit PO DAILY 06/27/17 06/27/17 History Allergies Allergy/AdvReac Type Severity Reaction Status Date / Time sulfamethoxazole Allergy Unknown hives Verified 06/27/17 16:42 trimethoprim Allergy Unknown HIVES Verified 06/27/17 16:42 niacin AdvReac Intermediate HIVES Verified 06/27/17 16:42 Exam Vital Signs: Temperature 97.3 F 06/27/17 20:00 Pulse Rate 69 06/27/17 20:00 Respiratory Rate 16 06/27/17 20:00 Blood Pressure 128/46 06/27/17 20:00 Pulse Oximetry 100 06/27/17 20:00 Telemetry Rhythm: Sinus Rhythm Height/Weight/BMI: Height 5 ft 4 in Weight 78.6 kg Body Mass Index 29.7 - Constitutional Present: mild distress, well nourished, well developed - Routine HEENT Exam Head: Present: normocephalic, atraumatic Eye: Present: EOMI ENT: Present: mucous membranes moist, dentition normal - Routine Respiratory Exam Present: CTA bilaterally, crackles, diminished air movement. Absent: wheezes - Routine Cardiovascular Exam Present: RRR. Absent: murmur - Routine Abdominal Exam Present: soft, normoactive bowel sounds, non distended. Absent: tenderness - Routine Extremities Exam Present: edema, normal capillary refill - Routine Skin Exam Present: dry, warm - Routine Neurological Exam Present: alert, oriented X3, CN II-XII intact - Routine Psychiatric Exam Present: normal affect Results - Labs CBC & Chem 7: 06/27/17 16:44 06/27/17 16:44 Assessment and Plan (1) CKD stage 3 due to type 1 diabetes mellitus Current visit: No Status: Acute (2) Congestive heart failure Current visit: No Status: Acute (3) Hypoxemia Current visit: No Status: Acute Assessment and Plan: This is an 82-year-old woman with known congestive heart failure who comes in with a 6 pound increase 3 days. She is followed by Dr. Leyva in cardiology for heart failure. She is coming early this time and thankfully so, so that we can perhaps improve her condition overnight with diuresis and an overnight rest on BiPAP. At this time I am writing for 2.5 IV of bumetanide and will have arrest on BiPAP. She will continue her home medications and will hopefully have diaries to enough that she can return home without further complication. DISPOSITION: observation for 24 hours - Physician Narrative Narrative: Date: 06/27/17 Time: 2144 Hospital Course Summary Disclaimer: The visit summary below is not to be considered part of the above Progress Note.
[2017-06-28 00:36] VITALS: TEMP 97.6
[2017-06-28] MEDS ORDERED: HEPARIN SUB-Q 5,000units/0.5ml INJECTION SQ SCH (07:30)
[2017-06-28 08:24] VITALS: PULSE 66
[2017-06-28] MEDS ORDERED: BUMETANIDE 2.5mg/10ml INJECTION IVP ONE (13:52)
--- NOTE | 2017-06-28 14:52 | Discharge Summary ---
Discharge Information Date of admission: 06/27/17 18:10 Anticipated date of discharge: 06/28/17 Attending Physician: Alex Levine MD Primary care physician: Rachel Dietz DO Consults: None - Discharge Diagnosis (1) CKD stage 3 due to type 1 diabetes mellitus Status: Acute (2) Congestive heart failure Status: Acute (3) Hypoxemia Status: Acute - Procedures Procedures: None - Laboratory Labs: 06/27/17 06/27/17 06/27/17 16:44 19:14 21:23 Turbidity 22 H Sodium 142 Potassium 4.3 Chloride 110 H Carbon Dioxide 23 Anion Gap 9 BUN 62.0 H* Creatinine 1.7 H GFR Calculation 29 BUN/Creatinine Ratio 37 H Glucose 137 H Glucometer 167 Calculated Osmolality 293 H Calcium 8.4 Magnesium 2.2 Icterus Index < 2 Troponin I < 0.012 B-Natriuretic Peptide 4010 H Specimen Hemolysis < 15 06/27/17 16:44 WBC 10.0 RBC 2.97 L Hgb 9.9 L Hct 30.6 L MCV 103.0 H MCH 33.3 MCHC 32.4 RDW Std Deviation 52.3 H Plt Count 215 MPV 10.6 Immature Gran % (Auto) Not performed Neut % (Auto) Not performed Lymph % (Auto) Not performed [place] % (Auto) Not performed Eos % (Auto) Not performed Baso % (Auto) Not performed Neut # (Auto) Not performed Lymph # (Auto) Not performed [place] # (Auto) Not performed Eos # (Auto) Not performed Baso # (Auto) Not performed Abs Immat Gran (auto) Not performed Neutrophils % (Manual) 56.0 Band Neutrophils % 3.0 Lymphocytes % (Manual) 27.0 Monocytes % (Manual) 11.0 H Metamyelocytes % 1.0 H Myelocytes % 2.0 H Neutrophils # (Manual) 5.6 Band Neutrophils # 0.3 Lymphocytes # (Manual) 2.7 Monocytes # (Manual) 1.1 H Metamyelocytes # 0.1 Myelocytes # 0.2 RBC Morph Comment Normal - Microbiology None - Radiology Radiology: 06/27/17-chest x-ray- IMPRESSION: 1. Trace of pleural effusions which have improved since prior exam. 2. Cardiomegaly. - Pathology None History of Present Illness HPI: Mrs. Ball is an 82-year-old female with known congestive heart failure to our service. She was just in hospital for diuresis and management of her CHF and was discharged on Saturday. She comes back 72 hours later 6 pounds heavier and having increased work breathing. She never has any complaints of the lower extremities feeling particularly fluid overloaded but does feel heavier and exhausted. She denies fevers chills nausea vomiting systemic constitutional symptoms. She has been taking her medicines as she has been directed. The ER she is very reliant on nasal cannula oxygen to keep of breath Objective Vital signs: Temperature 97.6 F 06/28/17 04:00 Pulse Rate 66 06/28/17 08:00 Respiratory Rate 18 06/28/17 08:00 Blood Pressure 133/63 06/28/17 08:00 Pulse Oximetry 100 06/28/17 08:00 Rhythm: Normal Sinus Rhythm, First Degree AV-Block, Bundle Branch Block Height/Weight/BMI: Height 1.63 m Weight 77.5 kg Body Mass Index 29.7 Hospital Course This is a general summary of the patient's hospital course. For more details refer to the complete medical record. Discharge Plan - Discharge Disposition Discharge Date: 06/28/17 Disposition: [facility] *Condition: Stable Reason For Visit (Visit label in EMR): CHF exacerbation - Discharge Medications *Discharge Medications: Continue Ascorbic Acid 500 mg PO DAILY #0 Carvedilol 12.5 mg PO BID #0 Acetaminophen [Acetaminophen 8 Hour] 650 mg PO DAILY PRN #0 PRN Reason: PAIN Amiodarone [Pacerone] 200 mg PO DAILY #30 tab Mirtazapine [Remeron] 15 mg PO HS Hydrocodone/Acetaminophen [Hydrocodon-Acetaminophen 5-325] 1 tab PO Q4H PRN PRN Reason: Pain Ferrous Sulfate 325 mg PO TID Fenofibrate [Lofibra] 160 mg PO DAILY cephALEXin [Keflex] 500 mg PO TID Insulin Detemir [Levemir] 16 unit SQ HS #0 Lisinopril [Prinivil] 2.5 mg PO DAILY #30 tab Vitamin E 400 unit PO DAILY Bisacodyl Supp [Dulcolax] 10 mg RECTALLY DAILY PRN PRN Reason: Constipation Peg 3350 238 G Bottle [Miralax] 17 gm PO DAILY PRN PRN Reason: Constipation LORazepam [Ativan] 0.5 mg PO HS PRN PRN Reason: Anxiety Albuterol/Ipratropium [Duoneb] 1 unit AEROSOL QID PRN PRN Reason: Shortness Of Air/Wheezing Amlodipine [Norvasc] 2.5 mg PO DAILY Sucralfate [Carafate] 1 gm PO QID diphenhydrAMINE HCl [Benadryl] 25 mg PO QID PRN #0 PRN Reason: ITCHING Calcium Carbonate/Vitamin D3 [Calcium 600-Vit D3 200 Tablet] 1 tab PO TID #0 Insulin Aspart [NovoLOG] 6 unit SQ TIDWM #0 [place]-3 Fatty Acids [Fish Oil Concentrate] 1,000 mg PO TID Albuterol Neb (0.083%) [Proventil Neb (0.083%)] 2.5 mg AEROSOL Q6HR Multivit-Min/Folic Acid/Biotin [Women Multivit W-Biotin Gummy] 1 tab PO DAILY Docusate Sodium [Colace] 100 mg PO BID Bumetanide Tab [Bumex 1 mg Tab] 1 mg PO [id number] #60 tab - Discharge Packet/Instructions *Diet: Carb consistent diet with 2 gm sodium restriction *Activity: Activity as tolerated *Pain Management/Treatment: Tylenol *Wound Care: None Additional Instructions: Continue on normal dose of Bumex 1 milligram twice a day. Goal weight is 165 pounds. Please weigh yourself daily and report to primary care if weight increases or decreases more than 3 pounds in 1 day or 5 pounds in one week. Follow-up with Dr. Dietz on Saturday as planned *Expected Signs/Symptoms: Continued improvement in edema, CHF *Notify Physician if: If weight increases or decreases more than 3 pounds in 1 day or 5 pounds in one week. Follow-up with Dr. Dietz on Saturday as planned. If you have increasing shortness of breath, chest pain or other concerning symptoms *During Business Hours Contact: Dr. Dietz *After Business Hours Contact: Page on-call physician for Dr. Dietz or present to the emergency room *Pending Lab/Results: No Pending Lab - Referrals/Follow Up *Referrals/Follow Up: Rachel Dietz DO [Family Provider] - (Follow-up Saturday07/01/17 is planned) - Patient Handouts Patient Handouts: [facility] [place] Congestive Heart Failure - Dismissal Complete Discharge Instructions are:: Complete Physician Narrative - Narrative Attestation Narrative: Date: 06/28/17 Time: 9453
[2017-06-28 15:26] VITALS: BP 120/54; RESP 16; O2SAT 99
--- NOTE | 2017-06-29 14:38 | Right on Track Program ---
Right on Track Program Date of Discharge: 06/28/17 Home Medications: Home Medications Medication Instructions Recorded Confirmed Ascorbic Acid 500 mg PO DAILY #0 08/03/15 06/27/17 diphenhydrAMINE HCl [Benadryl] 25 mg PO QID PRN #0 08/03/15 06/27/17 Calcium Carbonate/Vitamin D3 1 tab PO TID #0 07/25/16 06/27/17 [Calcium 600-Vit D3 200 Tablet] Carvedilol 12.5 mg PO BID #0 07/25/16 06/27/17 Insulin Aspart [NovoLOG] 6 unit SQ TIDWM #0 07/25/16 06/27/17 Acetaminophen [Acetaminophen 8 650 mg PO DAILY PRN #0 08/17/16 06/27/17 Hour] Albuterol Neb (0.083%) [Proventil 2.5 mg AEROSOL Q6HR 02/27/17 06/27/17 Neb (0.083%)] Mirtazapine [Remeron] 15 mg PO HS 02/27/17 06/27/17 [place]-3 Fatty Acids [Fish Oil 1,000 mg PO TID 02/27/17 06/27/17 Concentrate] Fenofibrate [Lofibra] 160 mg PO DAILY 05/16/17 06/27/17 Ferrous Sulfate 325 mg PO TID 05/16/17 06/27/17 Hydrocodone/Acetaminophen 1 tab PO Q4H PRN 05/16/17 06/27/17 [Hydrocodon-Acetaminophen 5-325] Multivit-Min/Folic Acid/Biotin 1 tab PO DAILY 05/16/17 06/27/17 [Women Multivit W-Biotin Gummy] Docusate Sodium [Colace] 100 mg PO BID 06/20/17 06/27/17 cephALEXin [Keflex] 500 mg PO TID 06/20/17 06/27/17 Albuterol/Ipratropium [Duoneb] 1 unit AEROSOL QID PRN 06/27/17 06/27/17 Amlodipine [Norvasc] 2.5 mg PO DAILY 06/27/17 06/27/17 Bisacodyl Supp [Dulcolax] 10 mg RECTALLY DAILY PRN 06/27/17 06/27/17 LORazepam [Ativan] 0.5 mg PO HS PRN 06/27/17 06/27/17 Peg 3350 238 G Bottle [Miralax] 17 gm PO DAILY PRN 06/27/17 06/27/17 Sucralfate [Carafate] 1 gm PO QID 06/27/17 06/27/17 Vitamin E 400 unit PO DAILY 06/27/17 06/27/17 Previous Rx's Medication Instructions Recorded Amiodarone [Pacerone] 200 mg PO DAILY #30 tab 08/22/16 Bumetanide Tab [Bumex 1 mg Tab] 1 mg PO [id number] #60 tab 06/24/17 Insulin Detemir [Levemir] 16 unit SQ HS #0 06/24/17 Lisinopril [Prinivil] 2.5 mg PO DAILY #30 tab 06/24/17 - Right on Track Program 24 hour phone call follow up Date: 06/29/17 Right on Track Program: 24 Hour Follow-Up Discharge Summary Received: Yes Follow Up: Pending Tests Reviewed, Follow Up Appointment Scheduled Education: Diagnosis Education Reviewed, Education Provided To Caregiver Referral: Primary Care Physician, Home Health Comments: I called Angela on 06/29/17. She denied having any questions on her discharge medications -- she didn't have any new Rx. She voiced some concerns that she was only diuresed about 1 lb or so in the hospital, but she denies any shortness of breath and actually feels fairly well in that regard. She is being visited by home health. We reviewed weight gain information. Recommendations For Follow-up: Impression 1. CHF exacerbation 2. Hypoxemia 3. CKD stage III Plan 1. Continue HH 2. F/U with Dr. Dietz as planned 3. Face to face visit for med review, education, and examination Phone call Date: 07/03/17 Discharge Summary Received: Yes Care Plan Received: Yes Follow Up: Follow Up Appointment Scheduled Education: Diagnosis Education Reviewed Referral: Primary Care Physician, Home Health Comments: I spoke with Angela again on 07/03/17. She saw Dr. Dietz yesterday and talked about her recent hospitalization and care at home. She is worried because her weight went up from 168 on discharge to 169 today and she's noticing a little more edema in her feet. She is going to call home health RN to see if she can come over and evaluate. Recommendations For Follow-up: Will f/u with Angela tomorrow morning at her home. Face to face visit Date: 07/04/17 Right on Track Program: 7-14 Day [id number] Discharge Summary Received: Yes Care Plan Received: Yes Follow Up: Follow up Tests Reviewed, Follow Up Appointment Scheduled Education: Diagnosis Education Reviewed, Education Provided To Caregiver Referral: Primary Care Physician, Home Health Comments: I visited Angela at her home in [place] on 07/04/17. Below is a summary of our discussion: Angela owns her house and lives with her sister, Dayanna. She keeps active with puzzles, game shows, and volunteering. Understanding of illness: Angela was able to state in her own words that she has CHF and has a leaky valve and that she's not a candidate for surgery. She knows that sometimes she becomes anxious and that makes her breathing worse. She uses relaxation techniques (breathing) to try to alleviate anxiety, but this is not always successful. She does not take anxiolytics, nor does she want to b/c of risky side effects. -Self-monitoring: she weighs herself daily and her goal weight is about 167 lbs. She assesses the amount of swelling in her legs daily, but at inconsistent times. She checks her glucose fasting and 2 hours after lunch and supper. Her glucose trends were reviewed with occasional readings >200 but no recent hypoglycemia. -Nutrition: She has a good appetite. She recently learned that she should be on a 2 gm sodium restriction. Her sister prepares simple meals or they use meals on wheels. They try to eat healthy and use frozen instead of canned vegetables, fresh fruit, and low-sodium canned soups. She wasn't sure how to translate the sodium content on the labels into her restriction. -Most bothersome symptoms: Anxiety, as mentioned above, and fatigue, which she believes is from several chronic conditions. She fears getting short of breath and it progressing to the point that she cannot remember events (which happened before a couple of her hospital admissions). PHQ-2 was negative and she does not feel like she is depressed. -Code status: DNR. 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 Her family is aware of this wish. She has named a DPOA but can't recall who it is -- one of her goals is to wrap up some "legal stuff" and this is one of them. -Medication review: She has a good grasp on her current medications. The following meds were listed on her discharge summary but she does not take them: Hydrocodone, Keflex, colace, and lorazepam. Exam: General: A&O x3, NAD HEENT: sclera anicteric, MMM CV: RRR Lungs: CTAB Ext: very, very trace edema. Bandaids to both ankles. Discussed With Patient and Caregiver: Yes Recommendations For Follow-up: 1. We reviewed how to read labels and calculate sodium content. Encouraged her to minimize canned soups. 2. We discussed importance of checking weight and edema at the same time each day (she didn't realize that edema could worsen through the day, especially if feet are in dependent position). She is aware of the CHF zones and when to contact her doctor regarding weight gain trends. 3. We discussed the cycle of anxiety and dyspnea, and how important it is to control anxiety. Recommended to discuss further with Dr. Dietz to consider increasing mirtazapine or consider a non-benzo option to help control anxiety. She's not particularly interested in Ativan. 4. Encouraged routine f/u with PCP and seismograph computer. 5. Continue with home health.
== END 2017-06-28 17:45 | disposition home health service (06) ==
LOC: MED 16:16 → ED 16:16 → MED 18:35
PROVIDERS: ADMIT Family Medicine; ATTEND Family Medicine

== ENCOUNTER 2017-11-10 14:10 | Inpatient (IN) ==
[2017-11-10] MEDS ORDERED: CEFEPIME 1 GM in NS 100 ML IV ONE (14:27)
--- NOTE | 2017-11-10 14:28 | Emergency Department Report ---
Lower Extremity Injury HPI - General Stated Complaint: Fall Time Seen by Provider: 11/10/17 14:26 Source: patient, EMS Mode of arrival: EMS - History of Present Illness HPI Narrative: Patient is an 82-year-old female presents emergency room for evaluation of fall , weakness, right lower extremity redness. Patient with history of chronic medical issues including diabetic neuropathy diabetic foot ulcer, weakness, hypoglycemia. Patient was brought to the ER on for evaluation of weakness, at that time laboratories were drawn which were noncontributory except patient was found to have a glucose of 40. Patient was given an amp of D50 and monitored in the emergency department with improvement of symptoms patient was discharged home with a glucose of 97. 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 Patient brought to the ER today after sliding and falling down between the toilet and the bathtub. Patient states she was too weak to get up and is been feeling increasing weakness. Original call was for lifting assistance only, however EMS evaluated the patient and took a look at her foot which was red and swollen that is a change from prior patient does have diabetic foot ulcers has recently been treated in the wound clinic, does not have another wound clinic appointment until Saturday. Patient also being treated for UTI with Keflex. Given increasing weakness and the redness of the leg it was convinced for patient to come to the ER for evaluation. Patient with no complaints of headache, did not hit had no other complaints. On arrival patient is on her standard 2 L by nasal cannula satting 97% heart rate 69 blood pressure is 124/ 57 currently - Related Data Home Medications Medication Instructions Recorded Confirmed Carvedilol 12.5 mg PO BID #0 07/25/16 11/10/17 Insulin Aspart [NovoLOG] 1 unit SQ WB #0 07/25/16 11/10/17 Albuterol Neb (0.083%) [Proventil 2.5 mg AEROSOL Q6HR PRN 02/27/17 11/10/17 Neb (0.083%)] Mirtazapine [Remeron] 15 mg PO HS 02/27/17 11/10/17 [place]-3 Fatty Acids [Fish Oil 1,000 mg PO QID 02/27/17 11/10/17 Concentrate] Multivit-Min/Folic Acid/Biotin 1 tab PO DAILY 05/16/17 11/10/17 [Women Multivit W-Biotin Gummy] Amlodipine [Norvasc] 2.5 mg PO DAILY 06/27/17 11/10/17 Peg 3350 238 G Bottle [Miralax] 17 gm PO DAILY PRN 06/27/17 11/10/17 Sucralfate [Carafate] 1 gm PO QID 06/27/17 11/10/17 Calcium Carbonate/Vitamin D3 1 tab PO DAILY 08/30/17 11/10/17 [Calcium 600-Vit D3 200 Tablet] Ferrous Sulfate 325 mg PO TID 08/30/17 11/10/17 Bumetanide Tab [Bumex 1 mg Tab] 1 mg PO BID 09/02/17 11/10/17 Acetaminophen [Tylenol] 500 mg PO Q6H PRN 11/01/17 11/10/17 Amiodarone [Pacerone] 200 mg PO DAILY 11/01/17 11/10/17 Ascorbic Acid 500 mg PO DAILY 11/01/17 11/10/17 Aspirin [Adult Aspirin Regimen] 81 mg PO DAILY 11/01/17 11/10/17 Atorvastatin [Lipitor] 40 mg PO HS 11/01/17 11/10/17 Clopidogrel [Plavix] 75 mg PO DAILY 11/01/17 11/10/17 LORazepam [Ativan] 0.5 mg PO DAILY PRN 11/01/17 11/10/17 Vitamin E 400 unit PO DAILY 11/01/17 11/10/17 Insulin Aspart [NovoLOG] 6 unit SQ WL 11/10/17 11/10/17 Insulin Aspart [NovoLOG] 6 unit SQ WS 11/10/17 11/10/17 Previous Rx's Medication Instructions Recorded Insulin Detemir [Levemir] 16 unit SQ HS #0 06/24/17 Lisinopril [Prinivil] 2.5 mg PO DAILY #30 tab 06/24/17 Levothyroxine Tab [Synthroid] 25 mcg PO ACB #30 tab 09/02/17 Allergies Allergy/AdvReac Type Severity Reaction Status Date / Time sulfamethoxazole Allergy Unknown hives Verified 11/10/17 14:25 trimethoprim Allergy Unknown HIVES Verified 11/10/17 14:25 niacin AdvReac Intermediate HIVES Verified 11/10/17 14:25 Review of Systems Constitutional: Reports: weakness. Denies: fever, chills Eyes: Denies: eye pain, eye discharge, vision change ENT: Denies: ear pain, throat pain, dental pain Cardiovascular: Denies: chest pain, palpitations, dyspnea on exertion Respiratory: Denies: cough, dyspnea, wheezes Gastrointestinal: Denies: abdominal pain, nausea, vomiting Genitourinary: Denies: dysuria, frequency Musculoskeletal: Reports: as per HPI Neurological: Denies: headache, weakness, numbness Psychiatric: Denies: anxiety, depression Endocrine: Reports: fatigue. Denies: heat or cold intolerance Allergic/Immunologic: Denies: facial swelling PFSH Patient Stated Medical History Hearing Loss Yes: hearing aids Cardiac Arrhythmia Yes: afib Congestive Heart Failure Yes Hypertension Yes Chronic Obstructive Pulmonary Yes Disease (COPD) Sleep Apnea Yes Diabetes Mellitus Type 1 Yes Diabetes Mellitus Type 2 Yes Constipation Yes Gastroesophageal Reflux Yes Disease Hx Incontinence Yes Hx Urinary Tract Infection Yes Osteoarthritis Yes Cellulitis Yes: foot MRSA Yes Sepsis Yes Other Yes: removal of PAC Rt chest Depression Yes Clinic Medical History (Last Updated 02/11/17 @ 18:53 by Zoe Rodriguez [place]) Diabetes (Chronic Medical) Heart disease (Chronic Medical) Neuropathy (Chronic Medical) Surgical History: Bilateral cataract extraction-2006. Appendectomy. Hysterectomy-2003. Cystoscopy 2008. Cardiac catheter-2008. EGD and diagnosis of esophageal cancer-2007. Port-A-Cath placement-2007. Bilateral toes amputations Family History: Family History (Last Reviewed 06/20/17 @ 16:33 by Nikky Braun MD) Father CAD (coronary artery disease) Mother CAD (coronary artery disease) Sister Parkinsons disease Brother Asthma Family History Updates: Reviewed and without significant relevant data - Social History Smoking status: Former smoker second hand exposure: No Substance use type: does not use Alcohol intake: never Alcohol intake frequency: does not drink Housing: house Household members: family (Sister) Current occupational status: retired Does patient use chewing tobacco?: No Current residence: Apartment/Private Home Physical Exam - General General appearance: alert, in no apparent distress - Eye Eye exam: Present: PERRL, EOMI - ENT ENT exam: Present: normal oropharynx, mucous membranes moist, TM's normal bilaterally - Neck Neck exam: Present: full ROM, trachea midline - Chest Chest inspection: Present: symmetric chest wall rise. Absent: tenderness - Respiratory Respiratory exam: Present: normal lung sounds bilaterally. Absent: respiratory distress, wheezes, stridor - Cardiovascular Cardiovascular exam: Present: regular rate, normal rhythm, normal heart sounds - Abdominal Exam Abdominal exam: Present: soft, normal bowel sounds. Absent: distention, tenderness - Rectal Exam Rectal exam: Present: normal inspection, normal rectal tone, heme (+) stool. Absent: black stool, bloody stool, fecal impaction, mass, tenderness - Extremities Exam Extremities exam: Present: other (patient's right lower extremity is erythematous, does have a large wound ball of 1st metatarsal with erythema of the entire foot) - Skin Skin exam: Present: pallor - Neurological Exam Neurological exam: Present: alert, oriented X3 - Psychiatric Psychiatric exam: Present: normal affect, normal mood Extremity Injury, Lower - Medical Records Attestation: I reviewed the patient's medical records. - Lab Data Attestation: I reviewed the patient's lab results. Result diagrams: 11/10/17 14:16 11/10/17 14:16 - Radiology Data Attestation: I reviewed the patient's radiology results. Chest x-ray shows mild edema no change from prior Disposition Clinical Impression: Cellulitis and abscess of foot Diabetic foot ulcer Qualifiers: Diabetic foot ulcer location: midfoot Diabetes mellitus type: type 2 Laterality : right Non-pressure ulcer stage: with muscle involvement without evidence of necrosis Qualified Code(s): E11.621 - Type 2 diabetes mellitus with foot ulcer GI bleed Qualifiers: GI bleed type/associated pathology: unspecified gastrointestinal hemorrhage type Qualified Code(s): K92.2 - Gastrointestinal hemorrhage, unspecified Disposition: 02 To [facility] [place] Acute Care Prescriptions: No Action Carvedilol 12.5 mg PO BID #0 Mirtazapine [Remeron] 15 mg PO HS Insulin Detemir [Levemir] 16 unit SQ HS #0 Lisinopril [Prinivil] 2.5 mg PO DAILY #30 tab Peg 3350 238 G Bottle [Miralax] 17 gm PO DAILY PRN PRN Reason: Constipation Amlodipine [Norvasc] 2.5 mg PO DAILY Sucralfate [Carafate] 1 gm PO QID Bumetanide Tab [Bumex 1 mg Tab] 1 mg PO BID LORazepam [Ativan] 0.5 mg PO DAILY PRN PRN Reason: Anxiety Clopidogrel [Plavix] 75 mg PO DAILY Atorvastatin [Lipitor] 40 mg PO HS Ascorbic Acid 500 mg PO DAILY Amiodarone [Pacerone] 200 mg PO DAILY Acetaminophen [Tylenol] 500 mg PO Q6H PRN PRN Reason: Pain Vitamin E 400 unit PO DAILY Insulin Aspart [NovoLOG] 6 unit SQ WL Insulin Aspart [NovoLOG] 6 unit SQ WS Insulin Aspart [NovoLOG] 1 unit SQ WB #0 [place]-3 Fatty Acids [Fish Oil Concentrate] 1,000 mg PO QID Albuterol Neb (0.083%) [Proventil Neb (0.083%)] 2.5 mg AEROSOL Q6HR PRN PRN Reason: Shortness Of Air Multivit-Min/Folic Acid/Biotin [Women Multivit W-Biotin Gummy] 1 tab PO DAILY Calcium Carbonate/Vitamin D3 [Calcium 600-Vit D3 200 Tablet] 1 tab PO DAILY Ferrous Sulfate 325 mg PO TID Levothyroxine Tab [Synthroid] 25 mcg PO ACB #30 tab Aspirin [Adult Aspirin Regimen] 81 mg PO DAILY Referrals: Kyle Frey MD [Primary Care Provider] - - Seen By: physician
[2017-11-10] MEDS: NS 1,000 ML IV SCH (14:39)
[2017-11-10] MEDS: SALINE FLUSH 10ml SYRINGE IVF PRN (14:40)
[2017-11-10] MEDS: NS FLUSH BAG 500ml IV PRN (14:48)
--- NOTE | 2017-11-10 16:42 | History & Physical Report ---
History of Present Illness Date: 11/10/17 (PCP: Dr. Dietz) Chief complaint: Weakness, foot wound HPI: HPI: Hospitalist. Patient is seen post admission to the CCU following her ER visit today. She has a very extensive medical history as detailed above. She has dealt with recurrent infections, including sepsis and bacteremia, as well as complicated recurrent foot wound. She has been admitted under the hospitalist service multiple times in the past. She has dealt with a persistent right foot wound, with prior concern for osteomyelitis. She did undergo bone biopsy, which did NOT reveal osteomyelitis . Wound cultures of the site were polymicrobial, and did show MRSA sensitive to doxycycline. She has followed in the wound clinic for treatment of her wound, and [facility] [place] been following as well. Patient was seen in the ER 11/01/17 due to weakness post transfusion. A urine culture done on that date was + for E.Coli and Proteus Mirabilis. Home health has continued to follow the patient, and in their notes on 11/07/17, they documented that patient had a copious amount of drainage from the right foot wound. Patient was pale, and reported not feeling well, but her vitals were stable at that time. She was scheduled to see her PCP on the following day (11/08), and had also seen her PCP on 11/06. She has continued to feel progressively worse, and she was brought into the emergency room today for further assessment. While in the ER today, the patient was demonstrated to have multiple concerns. There is concern that she may be developing severe infection &/or sepsis due to severe foot wound. She has recently undergone a vascular procedure of the right LE due to chronic peripheral arterial disease,and is currently taking Plavix. Her HGB has dropped from 11.1 to 7.7 in the last 10 days, and a hemoccult done in ER was positive. Her BUN was also markedly elevating, lending concern to the finding of a GI bleed. She has a known history of esophageal cancer, for which she sees Dr. Newman. She has also seen Dr. Lopez in the past for GI bleed. Due to her multiple medical concerns, and frail elderly status, she is admitted to the intensive care unit for further evaluation and treatment. She is a very pale, ill appearing female. She is pleasant, and gives history in conjunction with her sister, whom she lives with. Patient reports that she underwent a transfusion on 11/01/2017 at [facility] in lieu of his scheduled vascular procedure due to anemia. Sister reports that her hemoglobin at that time was somewhere around 7, and she received 1 unit of blood. Following that dismissal, she was seen in the [facility] ER as detailed above. She reports that she was taken back to [facility] this last , and underwent vascular procedure on her right lower extremity. Neither she nor her sister know if the lesion was ballooned, or ballooned and stented. She has been on Plavix due to that procedure. She does not report any debbie blood in her stools, but does report that she has had several loose stools. She does feel that her stool is darker than usual. She reports that she right foot wound has treated been draining more than usual over the last week or so. She references wound care, but does not tell me if that is here at [place] or at [facility]. As above, she continues to follow with Dr. Newman for her esophageal cancer. She continues to undergo routine, IV chemotherapy. Her last chemotherapy was approximately 2 weeks ago. In addition, she reports that Dr. dez figueroa updated them that her cancer was responding well to the chemotherapy. They had planned to hold chemotherapy for approximately 3 weeks due to the recurrence of her right foot wound. Review of Systems All systems PM: 10-point ROS was reviewed, no additional remarkable complaints except Review of systems: Please see history of present illness. No fever or chills. Patient does complain of generalized weakness and fatigue. She does have a course, nonproductive cough, which she acknowledges is worse than usual. She reports that she is having difficulty coughing up secretions. She does not endorse specific shortness of air. She does, have ongoing COPD with O2 at 2 L. She denies any abdominal pain. No nausea or vomiting. She denies dysphagia. Loose stool, darker than usual. Denies debbie blood in her stool. Right lower extremity edema, redness, increasing drainage from her right foot wound. All other systems are reviewed as appropriate, found to be negative. Past Medical History Medical History: Medical History (Last Reviewed 11/10/17 @ 17:35 by Jocelyn Lovell APRN) Diabetes Heart disease Neuropathy Medical History Updates: Hearing loss. Atrial fib. Heart failure, preserved ejection fraction, EF 50%. PFO with [id number] shunt on EDUIN 2015. Moderate mitral regurg. Diverticulosis. MRSA. Hypertension. COPD, O2 at 2 L. Sleep apnea. Diabetes mellitus type 2. Constipation. GERD. Urinary incontinence. UTI. Chronic right lower foot wound. Sepsis. Esophageal cancer, Dr. Newman. Bone biopsy 06/05/2017, negative for osteomyelitis. Anemia with GI bleed August 2016. PAD. Aortic atherosclerosis. Pneumonia. 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 Chronic kidney disease with baseline creatinine approximately 1.3 Surgical History: Bilateral cataract extraction-2006. Appendectomy. Hysterectomy-2003. Cystoscopy 2008. Cardiac catheter-2008. EGD and diagnosis of esophageal cancer-2007. Port-A-Cath placement-2007. Port-A-Cath removal . Bilateral toes amputations. Right lower extremity bone biopsy 2017. 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 Status post permanent pacemaker. Status post right lower extremity arterial balloon 11/07/2017 Family History: Family History (Last Reviewed 06/20/17 @ 16:33 by Nikky Braun MD) Father CAD (coronary artery disease) Mother CAD (coronary artery disease) Sister Parkinsons disease Brother Asthma Family History: As Above - Social History Smoking status: Former smoker Substance use type: does not use Alcohol intake frequency: does not drink Household members: family Current occupational status: retired, disabled Does patient use chewing tobacco?: No Current residence: Apartment/Private Home Medications Home Medications Medication Instructions Recorded Confirmed Type Carvedilol 12.5 mg PO BID #0 07/25/16 11/10/17 History Insulin Aspart [NovoLOG] 1 unit SQ WB #0 07/25/16 11/10/17 History Albuterol Neb (0.083%) [Proventil 2.5 mg AEROSOL Q6HR PRN 02/27/17 11/10/17 History Neb (0.083%)] Mirtazapine [Remeron] 15 mg PO HS 02/27/17 11/10/17 History [place]-3 Fatty Acids [Fish Oil 1,000 mg PO QID 02/27/17 11/10/17 History Concentrate] Multivit-Min/Folic Acid/Biotin 1 tab PO DAILY 05/16/17 11/10/17 History [Women Multivit W-Biotin Gummy] Insulin Detemir [Levemir] 16 unit SQ HS #0 06/24/17 11/10/17 Rx Lisinopril [Prinivil] 2.5 mg PO DAILY #30 tab 06/24/17 11/10/17 Rx Amlodipine [Norvasc] 2.5 mg PO DAILY 06/27/17 11/10/17 History Peg 3350 238 G Bottle [Miralax] 17 gm PO DAILY PRN 06/27/17 11/10/17 History Sucralfate [Carafate] 1 gm PO QID 06/27/17 11/10/17 History Calcium Carbonate/Vitamin D3 1 tab PO DAILY 08/30/17 11/10/17 History [Calcium 600-Vit D3 200 Tablet] Ferrous Sulfate 325 mg PO TID 08/30/17 11/10/17 History Bumetanide Tab [Bumex 1 mg Tab] 1 mg PO BID 09/02/17 11/10/17 History Levothyroxine Tab [Synthroid] 25 mcg PO ACB #30 tab 09/02/17 11/10/17 Rx Acetaminophen [Tylenol] 500 mg PO Q6H PRN 11/01/17 11/10/17 History Amiodarone [Pacerone] 200 mg PO DAILY 11/01/17 11/10/17 History Ascorbic Acid 500 mg PO DAILY 11/01/17 11/10/17 History Aspirin [Adult Aspirin Regimen] 81 mg PO DAILY 11/01/17 11/10/17 History Atorvastatin [Lipitor] 40 mg PO HS 11/01/17 11/10/17 History Clopidogrel [Plavix] 75 mg PO DAILY 11/01/17 11/10/17 History LORazepam [Ativan] 0.5 mg PO DAILY PRN 11/01/17 11/10/17 History Vitamin E 400 unit PO DAILY 11/01/17 11/10/17 History Insulin Aspart [NovoLOG] 6 unit SQ WL 11/10/17 11/10/17 History Insulin Aspart [NovoLOG] 6 unit SQ WS 11/10/17 11/10/17 History Allergies Allergy/AdvReac Type Severity Reaction Status Date / Time sulfamethoxazole Allergy Unknown hives Verified 11/10/17 14:25 trimethoprim Allergy Unknown HIVES Verified 11/10/17 14:25 niacin AdvReac Intermediate HIVES Verified 11/10/17 14:25 Exam Vital Signs: Temperature 98.5 F 11/10/17 14:10 Pulse Rate 73 11/10/17 16:09 Respiratory Rate 18 11/10/17 16:09 Blood Pressure 139/60 11/10/17 16:09 Pulse Oximetry 94 11/10/17 16:09 Telemetry Rhythm: A-fib Comments: Gen.: Patient is awake, alert. She is pale, appears ill. She is a fairly good historian. Head: Atraumatic, normocephalic. Eyes: Conjunctiva is pale ENT: oral mucosa is mildly dry. No external abnormalities Neck: Supple. No lymphadenopathy. Mild right carotid pulsation. Cardiovascular: S1, S2 irregularly irregular. Faint murmur. Moderate lower extremity edema, worse on the right Pulmonary: Lungs are diminished bilaterally. Poor airflow. She has a coarse, productive cough with green sputum. Abdomen: Soft, nontender. Nondistended. Bowel sounds are active 4 quadrants. No palpable masses or lesions. : Deferred Extremities: Right lower extremity: there is a clean dressing on the right foot. There is mild erythema in the lower part of the leg, which is more pink than pale. Left lower extremity: There is 2+ pitting edema up to mid calf left lower extremity has vascular changes consistent with PVD, but no acute redness, edema , etc. Both extremities are warm and appear to have good blood flow. Skin: Patient is very pale. Her skin is warm. I do not appreciate any mottling. Neurologic: Grossly intact as tested. She is awake and alert. No facial droop. She is moving all extremities. Results - Labs CBC & Chem 7: 11/10/17 14:16 11/10/17 14:16 Microbiology Results: Urine culture from 11/01/2017 is positive for Escherichia coli and Proteus Mirabelis. - Imaging and Cardiology Chest x-ray Status: image reviewed by me, pending Additional comments: Cardiomegaly. Left diaphragm is mildly elevated. Atelectasis versus chronic changes. Venous US Additional comments: Vascular ultrasound is pending Assessment and Plan (1) Acute anemia Current visit: Yes Status: Acute Assessment and Plan: Impression: 1. Acute anemia 2. Suspected GI bleed 3. Esophageal cancer with current chemotherapy 4. Sepsis, suspected due to right lower extremity wound 5. Chronic right lower extremity wound with exacerbation of infection 6. PAD with recent ballooning and/or stenting of the RLE vascular system 7: Acute on chronic kidney injury, baseline creatinine approximately 1.3 8. Heart failure, preserved ejection fraction\VHD\known PFO 8. Atrial fibrillation 9. Poor vascular access 10. History of polymicrobial, MDR infection 11. COPD with chronic hypoxemia 12. Acute bronchitis 13. Recent UTI 14. Hypovolemia Plan: Admit, inpatient, ICU. Admitting: Dr. Carrillo. PCP: Dr. Rachel Dietz Patient will receive a single unit of blood now. Per blood bank, she usually receives leuko-reduced, irradiated blood. We will obtain additional H&H at around 6 hours from time of admission. I suspect that she is likely more anemic than her labs reveal due to significant hypovolemia. We may need additional transfusion this evening. Protonix drip per protocol. Have a PICC line placed due to poor vascular access. (I discussed this with the patient, risk and benefits discussed, she is in agreement to have PICC line placed) Hold aspirin and Plavix this evening. We will need to obtain records from [facility] regarding specific procedures in the morning. Consult Dr. Lopez in the morning for further evaluation of GI bleeding. Check INR now. We will hold her antihypertensive currently. She is at high risk for hemodynamic instability. Hold diuretics. Continue amiodarone to help with rhythm control. She is not on full strength anticoagulation. Again, we will need to hold her aspirin and Plavix this evening, and further addressed in the morning. She is followed routinely by Dr. John Leyva. Monitor for fluid overload due to known history of heart failure and valvular heart disease. She has recently been on chemotherapy, therefore is immunocompromised. She also has a history of MDR infections. We'll consult Dr. Afua Fernandez in the morning. Start on Zosyn and vancomycin. Blood cultures have been drawn in the emergency department. I will request UA, wound cultures, and sputum cultures. Most recent urine cultures have been reviewed. Check lactate now and recheck per protocol. Continue O2 per home regimen. Restart breathing treatments. DVT prophylaxis: Will hold off for now. Due to very recent vascular stenting, I do not feel comfortable placing SCDs. No blood thinners due to known bleeding. CODE STATUS: I did discuss this with the patient. She remains a DO NOT RESUSCITATE as documented in her past medical history. Extensive time was spent this evening, greater than 90 minutes, and review of the medical record, exam, discussion with care team members, etc. Patient is very ill, will require close monitoring. DVT Prophylaxis: other (no SCDs due to recent stent. No thinners due to GI bleeding. ) GI Prophylaxis: Protonix Resuscitation Status: Do Not Resuscitate (Confirmed with pt.) - Time spent with patient Time with patient PN: 70 minutes - Physician Narrative Physician: Amanda Carrillo MD Narrative: Date: 11/10/17 Time: 8pm-I examined the patient independently. I reviewed this chart, the patient history, and the WEB DEVELOPER PROGRAMMER's/PA's documented findings as above. We discussed and formulated the assessment and plan as above with the additions below. Dr. Carrillo The patient was seen this evening in her room accompanied by her sister. We are attempting a PICC line placement tonight as well. I have reviewed the area extensive H&P above and discussed diagnoses and care plans extensively with WES Dyer. Patient currently has a cough with clear thick phlegm. She has mild shortness of breath. O2 sat is normal on 2 L. She is chronically on 2 L. Heart rate is in the 70s. Blood pressures is 142/63. She denies any nausea or vomiting. She states she has felt cold for a couple of weeks. She think she had angioplasty but not a stent to her right leg. She states Dr. Mekhi Hernandez, customer support manager did the procedure at [place] last week. His phone number is [phone]. On exam she is alert and appears chronically ill. HEENT reveals sclerae to be anicteric and oropharynx is moist. Neck is supple. Chest is clear to auscultation. Cardiovascular reveals a regular rate and rhythm. Abdomen is soft with positive bowel sounds. Left lower extremity is free of erythema or edema. Right lower extremity reveals the foot to be wrapped. Her calf is erythematous and edematous. Venous Doppler was negative for DVT. Lab was reviewed as above. Impression Acute on chronic anemia-status post transfusion 11/01/2017 Possible GI bleed with heme positive stool and elevated BUN Known esophageal cancer on chemotherapy Syncope prior to admission-likely secondary to anemia Diabetic foot wound infection -right foot Possible sepsis Peripheral arterial disease with recent angioplasty, cannot rule out stent. Currently on Plavix and aspirin for peripheral arterial disease Epistaxis Immunocompromised secondary to chemotherapy Chronic respiratory failure with COPD on 2 L History of CHF History of A. fib Type 2 diabetes mellitus Acute kidney injury on chronic kidney disease Mild hyperkalemia-likely in part hemolysis Hypernatremia Plan Obtain IV access. Cautious IV fluids. Transfuse 1 unit. Serial hemoglobins. Protonix drip. Consult Dr. Lopez tomorrow regarding diabetic foot wound and possible GI bleed. Vancomycin and Zosyn for infected foot wound and consult Dr. Fernandez. Hold Plavix and aspirin for now. Discussed with the patient's customer support manager regarding possible GI bleed and recent angioplasty of the leg. Check iron studies B-12 and folate Monitor closely in intensive care Hospital Course Summary Disclaimer: The visit summary below is not to be considered part of the above Progress Note. Hospital Course: Impression: 1. Acute anemia 2. Suspected GI bleed 3. Esophageal cancer with current chemotherapy 4. Sepsis, suspected due to right lower extremity wound 5. Chronic right lower extremity wound with exacerbation of infection 6. PAD with recent ballooning and/or stenting of the RLE vascular system 7: Acute on chronic kidney injury, baseline creatinine approximately 1.3 8. Heart failure, preserved ejection fraction\VHD\known PFO 8. Atrial fibrillation 9. Poor vascular access 10. History of polymicrobial, MDR infection 11. COPD with chronic hypoxemia 12. Acute bronchitis 13. Recent UTI 14. Hypovolemia Plan: Admit, inpatient, ICU. Admitting: Dr. Carrillo. PCP: Dr. Rachel Dietz Patient will receive a single unit of blood now. Per blood bank, she usually receives leuko-reduced, irradiated blood. We will obtain additional H&H at around 6 hours from time of admission. I suspect that she is likely more anemic than her labs reveal due to significant hypovolemia. We may need additional transfusion this evening. Protonix drip per protocol. Have a PICC line placed due to poor vascular access. (I discussed this with the patient, risk and benefits discussed, she is in agreement to have PICC line placed) Hold aspirin and Plavix this evening. We will need to obtain records from [facility] regarding specific procedures in the morning. Consult Dr. Lopez in the morning for further evaluation of GI bleeding. Check INR now. We will hold her antihypertensive currently. She is at high risk for hemodynamic instability. Hold diuretics. Continue amiodarone to help with rhythm control. She is not on full strength anticoagulation. Again, we will need to hold her aspirin and Plavix this evening, and further addressed in the morning. She is followed routinely by Dr. John Leyva. Monitor for fluid overload due to known history of heart failure and valvular heart disease. She has recently been on chemotherapy, therefore is immunocompromised. She also has a history of MDR infections. We'll consult Dr. Afua Fernandez in the morning. Start on Zosyn and vancomycin. Blood cultures have been drawn in the emergency department. I will request UA, wound cultures, and sputum cultures. Most recent urine cultures have been reviewed. Check lactate now and recheck per protocol. Continue O2 per home regimen. Restart breathing treatments. DVT prophylaxis: Will hold off for now. Due to very recent vascular stenting, I do not feel comfortable placing SCDs. No blood thinners due to known bleeding. CODE STATUS: I did discuss this with the patient. She remains a DO NOT RESUSCITATE as documented in her past medical history. Extensive time was spent this evening, greater than 90 minutes, and review of the medical record, exam, discussion with care team members, etc. Patient is very ill, will require close monitoring.
[2017-11-10] MEDS ORDERED: METOCLOPRAMIDE 10mg/2ml INJECTION IVP PRN (17:10)
[2017-11-10] MEDS ORDERED: SALINE FLUSH 10ml SYRINGE IV PRN (17:10)
[2017-11-10] MEDS ORDERED: ACETAMINOPHEN 325 MG TABLET PO PRN (17:10)
[2017-11-10] MEDS ORDERED: VANCOMYCIN - PHARMACY CONSULT MC ONE (17:17)
[2017-11-10] MEDS ORDERED: ALBUTEROL 2.5mg/3ml (0.083%) NEB AEROSOL PRN (17:22)
[2017-11-10] MEDS ORDERED: MORPHINE SULFATE 4mg INJECTION IVP PRN (17:23)
[2017-11-10] MEDS ORDERED: DEXTROSE 50% SYRINGE 50ml (1 AMP) IVP PRN (17:25)
[2017-11-11] MEDS: PANTOPRAZOLE IV 80 MG in NS 250ml 250 ML IV SCH ×3 (00:02→23:08)
[2017-11-11] MEDS: PIPERACILLIN/TAZOBACTAM 3.375 GM in NS 100 ML IV SCH ×6 (01:06→23:08)
[2017-11-11] MEDS: INSULIN DETEMIR 100unit/ml INJECTION SQ SCH ×2 (01:38→21:01)
[2017-11-11] MEDS: ATORVASTATIN 40 MG TABLET PO SCH ×2 (01:39→21:02)
[2017-11-11] MEDS: NS 1,000 ML IV SCH ×2 (03:30→04:31)
[2017-11-11] MEDS: LEVOTHYROXINE 25 MCG TABLET PO SCH (06:48)
--- NOTE | 2017-11-11 07:14 | XRay Report ---
LOCATION OF DICTATION: [place] EXAM: XR chest 2V HISTORY: fever, sepsis workup COMPARISON: November 10, 2017 and November 01, 2017. FINDINGS: The heart is upper limits normal size. Left-sided dual-lead pacemaker is in stable position. The central pulmonary vasculature is within normal limits. Mild calcific atherosclerotic disease of the thoracic aorta. There are no consolidating opacities or pleural effusions. There is no pneumothorax. Mild osteoarthrosis of the bilateral shoulder joints. IMPRESSION: Upper limits normal sized heart without CHF or pneumonia. Left-sided dual-lead pacemaker in place. .
--- NOTE | 2017-11-11 07:16 | Ultrasound Report ---
EXAM: US venous doppler LE RT LOCATION OF DICTATION: [place] HISTORY: swelling and pain of right lower extremity COMPARISON: No prior studies available for comparison. TECHNIQUE: Multiple real-time grayscale sonographic images were obtained of the right lower extremities with color flow and spectral analysis. FINDINGS: The right common femoral, femoral, deep femoral, popliteal, posterior tibial, and peroneal veins are widely patent without filling defects. These vessels demonstrate normal response to augmentation and compression. There are no abnormal fluid collections within the surrounding soft tissues. IMPRESSION: No evidence for right lower extremity deep venous thrombosis. .
--- NOTE | 2017-11-11 07:43 | XRay Report ---
EXAM: XR chest post-procedure 1V LOCATION OF DICTATION: [place] HISTORY: check picc placement post insertion COMPARISON: November 10, 2017 TECHNIQUE: Single view FINDINGS: The heart size is upper limits normal. Moderate mitral annular calcifications are noted. Left-sided dual-lead pacemaker in place. Left-sided PICC line in place the tip of the catheter extending to the upper SVC. There is mild bibasilar atelectasis without consolidation opacities or pleural effusions. Mild osteoarthrosis of the shoulder joints. Mild spondylosis of the thoracic spine. IMPRESSION: 1. The heart size is upper limit normal. Left-sided dual-lead pacemaker in place. Moderate mitral annular calcifications are noted. 2. Left PICC line in place with the tip of the catheter overlying the upper SVC. .
--- NOTE | 2017-11-11 07:47 | XRay Report ---
EXAM: XR chest post-procedure 1V LOCATION OF DICTATION: [place] HISTORY: recheck picc position after cathter retracted 3cm. COMPARISON: No prior studies available for comparison. TECHNIQUE: FINDINGS: The PICC line appears to have been slightly withdrawn and is partially obscured by the overlying pacer leads. The tip appears to be overlying the mid left brachiocephalic vein. The heart size is upper limits normal. Prominent mitral annular calcifications noted. Left-sided dual-lead pacemaker in place. No consolidating opacities are identified. Slight elevation of the left hemidiaphragm again noted. There is no pneumothorax. Impression: 1. The left PICC line appears to be slightly withdrawn is partially obscured by overlying pacer leads though the tip likely overlies the mid left brachiocephalic vein. 2. Heart size is upper limits normal without CHF or pneumonia. Mitral annular calcifications noted. .
--- NOTE | 2017-11-11 08:09 | General Surgery Consult Note ---
Consult date: 11/11/17 Attending Physician: Amanda Carrillo MD [facility] Patient Stated Medical History Hearing Loss Yes: RIGHT HEARING AID, DEAF IN LEFT EAR Cardiac Arrhythmia Yes: afib Congestive Heart Failure Yes Hypertension Yes Chronic Obstructive Pulmonary Yes Disease (COPD) Sleep Apnea Yes: O2 at home Diabetes Mellitus Type 2 Yes Gastroesophageal Reflux Yes Disease Hx Incontinence Yes Hx Renal Disease No Hx Urinary Tract Infection Yes: November 2017 Osteoarthritis Yes Cellulitis Yes: foot MRSA Yes: foot Sepsis Yes Depression Yes Clinic Medical History (Last Reviewed 11/10/17 @ 17:35 by Jocelyn Lovell APRN) Diabetes (Chronic Medical) Heart disease (Chronic Medical) Neuropathy (Chronic Medical) Medical History Updates: Hearing loss. Atrial fib. Heart failure, preserved ejection fraction, EF 50%. PFO with [id number] shunt on EDUIN 2015. Moderate mitral regurg. Diverticulosis. MRSA. Hypertension. COPD, O2 at 2 L. Sleep apnea. Diabetes mellitus type 2. Constipation. GERD. Urinary incontinence. UTI. Chronic right lower foot wound. Sepsis. Esophageal cancer, Dr. Newman. Bone biopsy 06/05/2017, negative for osteomyelitis. Anemia with GI bleed August 2016. PAD. Aortic atherosclerosis. Pneumonia. 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 Chronic kidney disease with baseline creatinine approximately 1.3 Surgical History: Bilateral cataract extraction-2006. Appendectomy. Hysterectomy-2003. Cystoscopy 2008. Cardiac catheter-2008. EGD and diagnosis of esophageal cancer-2007. Port-A-Cath placement-2007. Port-A-Cath removal . Bilateral toes amputations. Right lower extremity bone biopsy 2017. 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 Status post permanent pacemaker. Status post right lower extremity arterial balloon 11/07/2017 Family History: Family History (Last Reviewed 06/20/17 @ 16:33 by Nikky Braun MD) Father CAD (coronary artery disease) Mother CAD (coronary artery disease) Sister Parkinsons disease Brother Asthma Family History Updates: Reviewed and without significant relevant data - Social History Smoking status: Former smoker second hand exposure: No Substance use type: does not use Alcohol intake: never Alcohol intake frequency: does not drink Housing: house Household members: family Current occupational status: retired, disabled Does patient use chewing tobacco?: No Current residence: Apartment/Private Home Medications Home Medications Medication Instructions Recorded Confirmed Type Carvedilol 12.5 mg PO BID #0 07/25/16 11/10/17 History Insulin Aspart [NovoLOG] 1 unit SQ WB #0 07/25/16 11/10/17 History Albuterol Neb (0.083%) [Proventil 2.5 mg AEROSOL Q6HR PRN 02/27/17 11/10/17 History Neb (0.083%)] Mirtazapine [Remeron] 15 mg PO HS 02/27/17 11/10/17 History [place]-3 Fatty Acids [Fish Oil 1,000 mg PO QID 02/27/17 11/10/17 History Concentrate] Multivit-Min/Folic Acid/Biotin 1 tab PO DAILY 05/16/17 11/10/17 History [Women Multivit W-Biotin Gummy] Insulin Detemir [Levemir] 16 unit SQ HS #0 06/24/17 11/10/17 Rx Lisinopril [Prinivil] 2.5 mg PO DAILY #30 tab 06/24/17 11/10/17 Rx Amlodipine [Norvasc] 2.5 mg PO DAILY 06/27/17 11/10/17 History Peg 3350 238 G Bottle [Miralax] 17 gm PO DAILY PRN 06/27/17 11/10/17 History Sucralfate [Carafate] 1 gm PO QID 06/27/17 11/10/17 History Calcium Carbonate/Vitamin D3 1 tab PO DAILY 08/30/17 11/10/17 History [Calcium 600-Vit D3 200 Tablet] Ferrous Sulfate 325 mg PO TID 08/30/17 11/10/17 History Bumetanide Tab [Bumex 1 mg Tab] 1 mg PO BID 09/02/17 11/10/17 History Levothyroxine Tab [Synthroid] 25 mcg PO ACB #30 tab 09/02/17 11/10/17 Rx Acetaminophen [Tylenol] 500 mg PO Q6H PRN 11/01/17 11/10/17 History Amiodarone [Pacerone] 200 mg PO DAILY 11/01/17 11/10/17 History Ascorbic Acid 500 mg PO DAILY 11/01/17 11/10/17 History Aspirin [Adult Aspirin Regimen] 81 mg PO DAILY 11/01/17 11/10/17 History Atorvastatin [Lipitor] 40 mg PO HS 11/01/17 11/10/17 History Clopidogrel [Plavix] 75 mg PO DAILY 11/01/17 11/10/17 History LORazepam [Ativan] 0.5 mg PO DAILY PRN 11/01/17 11/10/17 History Vitamin E 400 unit PO DAILY 11/01/17 11/10/17 History Insulin Aspart [NovoLOG] 6 unit SQ WL 11/10/17 11/10/17 History Insulin Aspart [NovoLOG] 6 unit SQ WS 11/10/17 11/10/17 History Allergies Allergy/AdvReac Type Severity Reaction Status Date / Time sulfamethoxazole Allergy Unknown hives Verified 11/10/17 14:25 trimethoprim Allergy Unknown HIVES Verified 11/10/17 14:25 niacin AdvReac Intermediate HIVES Verified 11/10/17 14:25 Review of Systems 10-point ROS: negative except for HPI and the following: - Eyes/Ears/Nose/Throat Eyes: Present: other (wears glasses) Ear Nose Throat: Present: hearing problems (hearing aids) - Cardiovascular Cardiovascular: Present: irregular heart beat, edema/swelling (currently right lower leg and foot, pedal pulses obtained via hand held doppler). Absent: chest pain (angina) Additional comments: Right leg arterial ballooning 11/07/2017 - Respiratory Respiratory: Present: difficulty breathing, sleep apnea, use of oxygen (2L continuous at home) - Gastrointestinal Gastrointestinal: Present: constipation, blood in stools (Heme + in the ED and she thinks she "might" have seen blood, and stools are darker brown) - Genitourinary Females Only: Present: other (history of recent E-Coli UTI, incontinence) - Musculoskeletal Musculoskeletal: Present: joint pain (knee), other (frequent/chronic diabetic foot wounds) - Neurological Neurological: Present: muscle weakness, numbness (diabetic peripheral neuropathy ), other ("trouble with balance" and uses a walker or wheelchair) - Psychiatric Psychiatric: Present: depression - Endocrine Endocrine: Present: diabetes Additional comments: with diabetic foot ulcers - Vital Signs Last Vital Signs Temp 99.6 F 11/11/17 00:58 Pulse 61 11/11/17 06:30 Resp 0 L 11/11/17 06:15 BP 125/59 11/11/17 06:30 Pulse Ox 96 11/11/17 06:30 - Laboratory Result Diagrams: 11/11/17 04:32 11/11/17 04:32 General Surgery Results - Results Labs: 11/11/17 04:32 11/11/17 04:32
--- NOTE | 2017-11-11 09:14 | XRay Report ---
EXAM: XR chest 1V LOCATION OF DICTATION: [facility] HISTORY: cough COMPARISON: November 10, 2017 FINDINGS: Heart size is upper limits normal. Prominent mitral annular calcifications are noted. Central pulmonary vasculature is within normal limits. Left-sided dual-lead pacemaker is in stable position. Left PICC line in place partially obscured by overlying pacer leads with the tip likely near the left brachiocephalic vein origin. There is mild basilar atelectasis. Limited depth of inspiration with some crowding of the interstitial lung markings.. There is mild to moderate osteoarthrosis of the shoulder joints. Mild spondylosis of the thoracic spine. IMPRESSION: 1. Upper limits normal size heart with prominent mitral annular calcifications. 2. Limited depth of inspiration with some chronic senescent interstitial changes and basilar atelectasis suggested. 3. Left PICC line in place with the tip overlying the region of the left brachiocephalic vein. .
--- NOTE | 2017-11-11 09:56 | Infectious Disease Consult ---
Infectious Disease Consult Date of Consultation: 11/11/17 Requesting Physician: Amanda Carrillo Reason for Consultation: antibiotic recs History of Present Illness: Ms. Ball is an 82-year-old woman who is known to me from previous admissions and the wound clinic. She has had a diabetic foot wound on the right first metatarsal head itches been very chronic. In the past she's had a wound culture that grew MSSA and Proteus. She had a bone scan May 22 which showed abnormal uptake right first metatarsal head consistent with osteomyelitis. She underwent bone biopsy right first metatarsal head June 05 which was negative for osteomyelitis. She has been receiving chemotherapy for her esophageal cancer and I have had her on oral cephalexin for several months. When I last saw her on September 25, her wound was noted to be healed. I stopped her cephalexin at that visit. She has been seeing cardiology recently for her peripheral vascular disease. She underwent angiogram on October 07 which showed some vascular disease in her lower extremities. On October 31 she underwent right SFA atherectomy and percutaneous angioplasty by Dr. Mcghee at [place]. She was noted to be anemic and so was given 1 unit of packed red blood cells prior to that procedure. She reports that the wound team saw her when she was at [place] and did some work on a wound on the bottom of her right foot. I logged into the [place] system to review records and I did not see any notes from the wound team. Her sister reports that she was discharged from [place] on November 01 in the morning. By that evening she was in the emergency department here being evaluated for exhaustion. She was felt to have weakness hypoglycemia and volume depletion. Hemoglobin was 11.1. Per [place] records her hemoglobin was 8.0 on discharge. Her UA showed 30-50 white cells and 3+ bacteria. She was discharged home with the plan that her urine culture would be followed up on and treated if necessary. Her urine culture from November 01 grew out greater than 100,000 colonies of Escherichia coli that was resistant to ampicillin Cipro Levaquin and Bactrim. Chest x-ray on November 01 was unremarkable. Patient reports that she had increasing pain and redness and drainage from her right foot. Her sister states that she has not been able to get an appointment for her in the wound clinic here. The patient had what sounds like a syncopal episode at home and presented to the emergency department yesterday. In the emergency room she was slightly tachypneic but otherwise her vitals were stable. Her hemoglobin was 7.2. In was 1.8 and BUN was 79. There was concern for GI bleeding. He is admitted to the ICU for further evaluation. She had a PICC line placed. Chest x-ray did not show any significant infiltrates. Blood cultures are pending. She was started empirically on vancomycin and Zosyn. UA obtained yesterday had only 3-5 white cells and 2+ bacteria and culture was not indicated. He was a wound culture obtained from her right foot which is pending. She has not more hypoxic and baseline for her. As asked to see her and help with her antibiotics. Medications Home Medications Medication Instructions Recorded Confirmed Type Carvedilol 12.5 mg PO BID #0 07/25/16 11/10/17 History Insulin Aspart [NovoLOG] 1 unit SQ WB #0 07/25/16 11/10/17 History Albuterol Neb (0.083%) [Proventil 2.5 mg AEROSOL Q6HR PRN 02/27/17 11/10/17 History Neb (0.083%)] Mirtazapine [Remeron] 15 mg PO HS 02/27/17 11/10/17 History [place]-3 Fatty Acids [Fish Oil 1,000 mg PO QID 02/27/17 11/10/17 History Concentrate] Multivit-Min/Folic Acid/Biotin 1 tab PO DAILY 05/16/17 11/10/17 History [Women Multivit W-Biotin Gummy] Insulin Detemir [Levemir] 16 unit SQ HS #0 06/24/17 11/10/17 Rx Lisinopril [Prinivil] 2.5 mg PO DAILY #30 tab 06/24/17 11/10/17 Rx Amlodipine [Norvasc] 2.5 mg PO DAILY 06/27/17 11/10/17 History Peg 3350 238 G Bottle [Miralax] 17 gm PO DAILY PRN 06/27/17 11/10/17 History Sucralfate [Carafate] 1 gm PO QID 06/27/17 11/10/17 History Calcium Carbonate/Vitamin D3 1 tab PO DAILY 08/30/17 11/10/17 History [Calcium 600-Vit D3 200 Tablet] Ferrous Sulfate 325 mg PO TID 08/30/17 11/10/17 History Bumetanide Tab [Bumex 1 mg Tab] 1 mg PO BID 09/02/17 11/10/17 History Levothyroxine Tab [Synthroid] 25 mcg PO ACB #30 tab 09/02/17 11/10/17 Rx Acetaminophen [Tylenol] 500 mg PO Q6H PRN 11/01/17 11/10/17 History Amiodarone [Pacerone] 200 mg PO DAILY 11/01/17 11/10/17 History Ascorbic Acid 500 mg PO DAILY 11/01/17 11/10/17 History Aspirin [Adult Aspirin Regimen] 81 mg PO DAILY 11/01/17 11/10/17 History Atorvastatin [Lipitor] 40 mg PO HS 11/01/17 11/10/17 History Clopidogrel [Plavix] 75 mg PO DAILY 11/01/17 11/10/17 History LORazepam [Ativan] 0.5 mg PO DAILY PRN 11/01/17 11/10/17 History Vitamin E 400 unit PO DAILY 11/01/17 11/10/17 History Insulin Aspart [NovoLOG] 6 unit SQ WL 11/10/17 11/10/17 History Insulin Aspart [NovoLOG] 6 unit SQ WS 11/10/17 11/10/17 History Allergies Allergy/AdvReac Type Severity Reaction Status Date / Time sulfamethoxazole Allergy Unknown hives Verified 11/10/17 14:25 trimethoprim Allergy Unknown HIVES Verified 11/10/17 14:25 niacin AdvReac Intermediate HIVES Verified 11/10/17 14:25 PFSH Patient Stated Medical History Hearing Loss Yes: RIGHT HEARING AID, DEAF IN LEFT EAR Cardiac Arrhythmia Yes: afib Congestive Heart Failure Yes Hypertension Yes Chronic Obstructive Pulmonary Yes Disease (COPD) Sleep Apnea Yes Diabetes Mellitus Type 2 Yes Gastroesophageal Reflux Yes Disease Hx Incontinence Yes Hx Renal Disease No Hx Urinary Tract Infection Yes Osteoarthritis Yes Cellulitis Yes: foot MRSA Yes Sepsis Yes Other Yes: removal of PAC Rt chest Depression Yes Clinic Medical History (Last Reviewed 11/10/17 @ 17:35 by Jocelyn Lovell APRN) Diabetes (Chronic Medical) Heart disease (Chronic Medical) Neuropathy (Chronic Medical) Medical History Updates: Hearing loss. Atrial fib. Heart failure, preserved ejection fraction, EF 50%. PFO with [id number] shunt on EDUIN 2015. Moderate mitral regurg. Diverticulosis. MRSA. Hypertension. COPD, O2 at 2 L. Sleep apnea. Diabetes mellitus type 2. Constipation. GERD. Urinary incontinence. UTI. Chronic right lower foot wound. Sepsis. Esophageal cancer, Dr. Newman. Bone biopsy 06/05/2017, negative for osteomyelitis. Anemia with GI bleed August 2016. PAD. Aortic atherosclerosis. Pneumonia. 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 Chronic kidney disease with baseline creatinine approximately 1.3 Surgical History: Bilateral cataract extraction-2006. Appendectomy. Hysterectomy-2003. Cystoscopy 2008. Cardiac catheter-2008. EGD and diagnosis of esophageal cancer-2007. Port-A-Cath placement-2007. Port-A-Cath removal . Bilateral toes amputations. Right lower extremity bone biopsy 2017. 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 Status post permanent pacemaker. Status post right lower extremity arterial balloon 11/07/2017 Family History: Family History (Last Reviewed 06/20/17 @ 16:33 by Nikky Braun MD) Father CAD (coronary artery disease) Mother CAD (coronary artery disease) Sister Parkinsons disease Brother Asthma Family History Updates: Reviewed and without significant relevant data - Social History Smoking status: Former smoker second hand exposure: No Substance use type: does not use Alcohol intake: never Alcohol intake frequency: does not drink Housing: house Household members: family Current occupational status: retired, disabled Does patient use chewing tobacco?: No Current residence: Apartment/Private Home Review of Systems All systems PM: 10-point ROS was reviewed, no additional remarkable complaints except - Constitutional Constitutional: Present: chills. Absent: fever(s) - Cardiovascular Cardiovascular: Absent: chest pain - Respiratory Respiratory: Present: cough, dyspnea - Gastrointestinal Gastrointestinal: Present: nausea. Absent: abdominal pain - Genitourinary Genitourinary: Absent: dysuria - Musculoskeletal Musculoskeletal Comments: pain RLE - Integumentary/Breasts Integumentary: Present: erythema (RLE) - Neurological Neurological: Present: weakness. Absent: headache(s) Exam Vital Signs: Temperature 99.6 F 11/11/17 00:58 Pulse Rate 60 11/11/17 09:00 Respiratory Rate 34 H 11/11/17 09:00 Blood Pressure 147/65 H 11/11/17 08:19 Pulse Oximetry 97 11/11/17 09:00 Height/Weight/BMI: Height 1.63 m Weight 75.795 kg Body Mass Index 29.0 - Constitutional Present: well nourished, well developed, thin Comments: chronically ill appearing, pale - Routine HEENT Exam Head: Present: normocephalic, atraumatic Eye: Present: EOMI, PERRL ENT: Present: mucous membranes moist, oropharynx clear - Routine Neck Exam Present: supple - Routine Respiratory Exam Present: CTA bilaterally. Absent: accessory muscle use Comments: On 2L O2 - Routine Cardiovascular Exam Present: RRR - Routine Abdominal Exam Present: soft, normoactive bowel sounds, non distended, non tender - Routine Extremities Exam Present: edema (1+ RLE). Absent: cyanosis, clubbing Comments: very tender over R foot near wounds - Routine Skin Exam Present: intact. Absent: rash Comments: bright red erythema involving RLE. Charcot foot changes R foot. Large wound plantar aspect of R foot. Smaller wound near R 1st MT head. Smaller wound posterior R heel near Achilles tendon. Small wounds on 2nd/4th toes R foot. - Routine Neurological Exam Present: alert, oriented X3, CN II-XII intact, normal speech. Absent: motor deficit - Routine Psychiatric Exam Present: normal affect Results - Labs CBC & Chem 7: 11/11/17 04:32 11/11/17 04:32 Impression: Sepsis secondary to skin/soft tissue source Diabetic foot infection R foot with cellulitis PVD s/p R SFA atherectomy/[employer] 10/31/17 Recent syncopal episode anemia, macrocytic Diabetic foot wound R 1st MT head, wound culture with MSSA, and Proteus. Bone scan 05/22/17 with abnormal uptake R 1st MT head consistent with osteomyelitis. S/p bone biopsy R 1st MT head 06/05/17 which was negative for osteomyelitis. Wound was noted to be healed on 09/25/17 and her cephalexin was stopped. Recurrent esophageal cancer, on weekly chemotherapy per Dr. Newman. H/o sepsis/septicemia with Pantoea species 2016, s/p Port removal 02/28/17. DM II, with peripheral neuropathy CKD stage III. COPD-chronic oxygen use at 2 liters Chronic atrial fibrillation s/p pacemaker implantation Hypertension GERD Hyperlipidemia Obstructive sleep apnea History of anemia and GI bleed. Allergies to cipro and sulfa (rash). Recommendation: Recommend continuing with Vancomycin and zosyn for now, pending culture results. Will order X-ray of R foot. Dr. Lopez has been consulted as well. Records reviewed from [facility] and also [place], case discussed with Dr. Carrillo.
--- NOTE | 2017-11-11 09:58 | Progress Note ---
- Date 11/11/17 Subjective: The patient was seen this morning in CCU accompanied by her sisters. She states she feels a little less weak today than yesterday. She states she does not feel as cold as she did yesterday. The patient complains of pain in her right foot where she has an infected diabetic foot wound and cellulitis of the foot and lower leg. She denies any chest pain or abdominal pain. She denies feeling short of breath at this time. She is on her usual 2 L of oxygen. She has a Longoria catheter with good urine output. She had a large, soft and green stool overnight. She has had intermittent nausea but none today. No recent vomiting. She had a cough with production of thick clear appearing mucus yesterday. Cough seems to be much better this morning. Objective Vital signs: Temperature 99.6 F 11/11/17 00:58 Pulse Rate 60 11/11/17 09:00 Respiratory Rate 34 H 11/11/17 09:00 Blood Pressure 147/65 H 11/11/17 08:19 Pulse Oximetry 97 11/11/17 09:00 Height/Weight/BMI: Height 1.63 m Weight 75.795 kg Body Mass Index 29.0 Comments: MAXIMUM TEMPERATURE is 99.6. Heart rate 60. Blood pressure 125/59. O2 sat 96% on 2 L. She is chronically on 2 L. Cumulative I&O's GEN-alert, oriented, no acute distress. Still appears very pale. HEENT-sclera anicteric, pupils are equal, oropharynx is moist NECK-supple CV-regular rate and rhythm CHEST-clear to auscultation bilaterally, mild crackles in the bases ABD-soft, nontender with positive bowel sounds -Longoria in place with good urine output EXT-left lower extremity is without edema. Right lower extremity reveals edema + 1 pretibial he. She has erythema of the foot and the lower one half of her calf. She has some ulcerations on the top of her toes and 2 ulcers on the medial portion of her foot. Pulses are present by Doppler. NEURO-no focal deficits SKIN-no other issues other than noted above under extremities Results - Labs CBC & Chem 7: 11/11/17 04:32 11/11/17 04:32 Labs: Lactate is 0.63. B-12 and folate are normal. Iron is low at 24. Iron sat is low normal at 11%. TIBC is low at 219. Urinalysis is essentially negative. Blood cultures and wound cultures are pending. Liver enzymes are essentially normal. Hemoglobin A1c was 5.5. Calcium is 8.2. Phosphorus is 4.4. Discussed with Dr. Hernandez, electronics design engineer in [place] who saw her at the end of October and performed balloon angioplasty of her peripheral arterial disease of the right leg. He stated on October 30 her hemoglobin was 7.1 and she received 1 unit of blood and hemoglobin improved to 8. He also stated that at that time her creatinine was 1.8. Assessment and Plan (1) Acute anemia Current visit: Yes Status: Acute Assessment and Plan: Impression: 1. Acute anemia-hemoglobin was 7.1 at the end of October and she received 1 unit of blood with hemoglobin improving to 8.0. Per previous lab. [facility] , hemoglobin has been around the 10 range from June to September of this year. 2. Suspected GI bleed -hemoglobin was apparently 7.1 at the end of October. If she has a GI bleed it has been slow at this point. Stool was Hemoccult positive but did not appear melanotic or grossly bloody. 3. Esophageal cancer with current chemotherapy 4. Sepsis, suspected due to right lower extremity wound 5. Chronic right lower extremity wound with exacerbation of infection-reported recent debridement of her foot wound a week and half ago 6. PAD with recent angioplasty of the RLE vascular system but no stent per her electronics design engineer -discussed with Dr. Hernandez and he would prefer that she stay on aspirin and Plavix, but if concerns for acute GI bleed he is okay with discontinuation of Plavix. 7: Acute on chronic kidney injury, baseline creatinine approximately 1.3-was 1.6 -1.7 at the end of October. 8. Heart failure, preserved ejection fraction\VHD\known PFO 8. Atrial fibrillation 9. Poor vascular access-PICC line placed 11/10/2017 10. History of polymicrobial, MDR infection 11. COPD with chronic hypoxemia-on 2 L 12. Acute bronchitis-improved 13. Recent UTI-resolved 14. Hypovolemia-improving 15. Hypernatremia 16. Metabolic acidosis 17. 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 Syncope prior to admission with generalized weakness Plan The patient's hemoglobin did improve after 1 unit of blood. She is feeling just a little bit stronger. Sodium has increased overnight. She still has metabolic acidosis with bicarbonate of 18. Lactate has been normal 3. Will change IV fluids to D5 W with 75 mEq of sodium bicarbonate. Continue to monitor renal function closely. Regarding anemia and concern for possible GI bleed, hemoglobin had been in the 10 range until at least September of this year. When she went to [place] for procedure at the end of October, her hemoglobin was 7.1 and she was given 1 unit of blood. Hemoglobin at discharge was 8.0. She was admitted yesterday with heme positive stool but did not have any melena or debbie hematic usually a. She had been on aspirin and Plavix for recent angioplasty of her right lower extremity. Her electronics design engineer prefers that she would stay on aspirin and Plavix, but Plavix could be discontinued if there were significant concerns for GI bleed. Continue on Protonix drip for now.Continue to hold aspirin and Plavix for now. We'll make the patient nothing by mouth now in case she does need EGD regarding anemia and heme positive stool. Dr. Lopez was consulted regarding infected diabetic foot wound in her right lower extremity and regarding possible GI bleed with known esophageal cancer. Dr. Fernandez was consulted regarding the patient's diabetic foot wound. Will discuss patient's anemia, possible GI bleed and esophageal cancer with Dr. Newman. Recheck CBC, renal panel and magnesium tomorrow. Discussed with Dr. Lopez, Dr. Fernandez, and Dr. Hernandez. Greater than 90 minutes of critical care time spent seeing and evaluating the patient, determining care plan, and discussing with consultants today. GI Prophylaxis: Protonix Resuscitation Status: Do Not Resuscitate - Physician Narrative Narrative: Date: 11/11/17 Time: 09 Hospital Course Summary Disclaimer: The visit summary below is not to be considered part of the above Progress Note. Hospital Course: Impression: 1. Acute anemia 2. Suspected GI bleed 3. Esophageal cancer with current chemotherapy 4. Sepsis, suspected due to right lower extremity wound 5. Chronic right lower extremity wound with exacerbation of infection 6. PAD with recent ballooning and/or stenting of the RLE vascular system 7: Acute on chronic kidney injury, baseline creatinine approximately 1.3 8. Heart failure, preserved ejection fraction\VHD\known PFO 8. Atrial fibrillation 9. Poor vascular access 10. History of polymicrobial, MDR infection 11. COPD with chronic hypoxemia 12. Acute bronchitis 13. Recent UTI 14. Hypovolemia Plan: Admit, inpatient, ICU. Admitting: Dr. Carrillo. PCP: Dr. Rachel Dietz Patient will receive a single unit of blood now. Per blood bank, she usually receives leuko-reduced, irradiated blood. We will obtain additional H&H at around 6 hours from time of admission. I suspect that she is likely more anemic than her labs reveal due to significant hypovolemia. We may need additional transfusion this evening. Protonix drip per protocol. Have a PICC line placed due to poor vascular access. (I discussed this with the patient, risk and benefits discussed, she is in agreement to have PICC line placed) Hold aspirin and Plavix this evening. We will need to obtain records from [facility] regarding specific procedures in the morning. Consult Dr. Lopez in the morning for further evaluation of GI bleeding. Check INR now. We will hold her antihypertensive currently. She is at high risk for hemodynamic instability. Hold diuretics. Continue amiodarone to help with rhythm control. She is not on full strength anticoagulation. Again, we will need to hold her aspirin and Plavix this evening, and further addressed in the morning. She is followed routinely by Dr. John Leyva. Monitor for fluid overload due to known history of heart failure and valvular heart disease. She has recently been on chemotherapy, therefore is immunocompromised. She also has a history of MDR infections. We'll consult Dr. Afua Fernandez in the morning. Start on Zosyn and vancomycin. Blood cultures have been drawn in the emergency department. I will request UA, wound cultures, and sputum cultures. Most recent urine cultures have been reviewed. Check lactate now and recheck per protocol. Continue O2 per home regimen. Restart breathing treatments. DVT prophylaxis: Will hold off for now. Due to very recent vascular stenting, I do not feel comfortable placing SCDs. No blood thinners due to known bleeding. CODE STATUS: I did discuss this with the patient. She remains a DO NOT RESUSCITATE as documented in her past medical history. Extensive time was spent this evening, greater than 90 minutes, and review of the medical record, exam, discussion with care team members, etc. Patient is very ill, will require close monitoring.
--- NOTE | 2017-11-11 11:11 | Pharmacy Consult-Antibiotics ---
Pharmacy Consult-Vancomycin - Laboratory Information WBC 6.5 T/MM3 (4.5-11.0) 11/11/17 04:32 BUN 60.0 MG/DL (7-17) H* 11/11/17 04:32 Creatinine 1.6 mg/dL (0.7-1.2) H D 11/11/17 04:32 - Consult Information VANCOMYCIN CONSULT: Dx: Diabetic foot ulcer, cellulitis Current Renal Fx: SCr = 1.6mg/dl. Will give Vancomycin 1,000mg IV q24hrs. Will continue to monitor and adjust regimen to maintain therapeutic levels. Thank you.
[2017-11-11] MEDS: SODIUM BICARBONATE 75 MEQ in D5W 1,000 ML IV SCH (11:15)
--- NOTE | 2017-11-11 13:27 | XRay Report ---
EXAM: XR foot RT min 3V LOCATION OF DICTATION: [place] HISTORY: R foot wound COMPARISON: March 24, 2010 and August 15, 2009. 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 There is chronic ankylosis and sclerosis about the interphalangeal joints of the second and fourth toes. Mild osteoarthrosis about the great toe. There is mild to moderate osteoarthrosis of the tarsometatarsal articulation. Generalized osteopenia is demonstrated. No suspicious bony erosive or destructive abnormalities identified. Pes planus deformity is noted. Moderate calcific atherosclerotic disease is demonstrated. IMPRESSION: 1. 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 2. No suspicious bony erosive/destructive abnormalities. 3. Pes planus deformity. 4. Mild to moderate osteoarthrosis. .
[2017-11-11] MEDS: AMIODARONE 200 MG TABLET PO SCH (18:00)
[2017-11-11] MEDS ORDERED: FALL RISK - PHARMACY CONSULT MC ONE (18:41)
--- NOTE | 2017-11-11 21:10 | Consultation ---
DATE OF CONSULTATION 11/11/2017 FINDINGS Mrs. Ball is an 82-year-old female whom I was asked to see earlier today in consultation as a result of her finding of progressive anemia upon laboratory evaluation in conjunction with her known history for esophageal cancer. Angela is a quite complicated patient. I have taken care of Angela likely over the last 15 years or more from a diabetic foot ulceration standpoint as well as in regards to her esophageal cancer and other general surgical processes. Angela informs me that she recently had been hospitalized at [facility] and had undergone a vascular procedure to her right lower extremity. Patient states that during this hospitalization someone had come and "looked at her foot." Angela informed me this morning that someone had informed her at [place] that she had a large "blister" that needed to be debrided on her foot. Patient states that she did undergo a debridement while at [facility]. Following her vascular procedure to her right lower extremity, which apparently consisted of an angioplasty, she was discharged from the hospital. The patient began to feel quite weak and it was noted that her right foot was progressively becoming worse. She presented to our emergency room facility and was found to have a hemoglobin that had decreased to 7.7 from 11 during her hospitalization at [facility]. The patient was also found to have a component of erythema involving her right lower extremity suggestive of cellulitis as well as progressive necrosis of the right diabetic foot ulcer. Given her progressive anemia, apparent cellulitis and diabetic foot ulcerations the patient was admitted to the hospital for further care. It should be noted the patient was placed on anticoagulation following her angioplasty. Additionally, it should be noted that the patient is undergoing chemotherapy as a result of her known esophageal cancer. PAST MEDICAL HISTORY, PAST SURGICAL HISTORY, MEDICATIONS, ALLERGIES, SOCIAL HISTORY, FAMILY HISTORY, REVIEW OF SYSTEMS Performed by my nurse practitioner, Jadiel Ryan APRN. PHYSICAL EXAM GENERAL: Angela is an elderly 82-year-old female who did appear fairly pale this morning. She did not appear, however, to be in acute distress. VITAL SIGNS: Last recorded vitals include temperature 98.0, pulse 67, respirations 27, blood pressure 143/64, SAO2 94%. HEENT: Normocephalic. Pupils are equally round and react to light HEART: Regular rate and rhythm. No murmur was auscultated. CHEST: Clear to auscultation bilaterally. ABDOMEN: Soft, completely nontender. No evidence for guarding or rebound. No evidence for hepatosplenomegaly or other abnormal masses. EXTREMITIES: Attention was focused to the right lower extremity. She did have a dressing upon her foot. The dressing was removed. One could see some erythema of the right anterior tibial surface and dorsum of the foot in comparison to the left. Upon visualization the patient had larger necrotic wound upon the medial aspect of the foot just proximal to the metatarsal head. She additionally had a smaller necrotic wound upon the medial aspect of the first metatarsal head. She also had a couple of dry eschars upon the dorsum of a couple of her toes distally. Furthermore, upon the posterior Achilles region she has a small abrasion/skin breakdown that is on the order about 8 mm in diameter. Foot was warm to touch. Pulses were nonpalpable but were found earlier today with Doppler. NEURO: Cranial nerves II-XII grossly intact. The patient does have a component of peripheral neuropathy. She is without, however, focal motor deficits. LABORATORY/RADIOGRAPHIC EVALUATION As stated above, the patient's hemoglobin had drifted down to 7.2. She was given a unit of blood and her hemoglobin has increased to 8.1 following transfusion. The patient was on Plavix and a platelet function PTY12 was obtained and was found to be normal at 360. INR was obtained and found to be 1.15. White count is normal at 6.5. CMP was obtained today and her BUN has improved from 79.0 to 51.0. Her creatinine is improved from 1.8 to 1.4 following hydration and blood. She continues to have electrolyte abnormalities with a sodium of 152 and a chloride of 126. ASSESSMENT Very complicated 82-year-old female with personal history for esophageal cancer undergoing chemotherapy, status post angioplasty to right lower extremity, development of progressive anemia, probable GI bleed, right diabetic foot ulceration. PLAN In regards to her probable GI bleed it would be my recommendation with her known esophageal cancer that we go ahead and proceed with esophagogastroduodenoscopy. This was discussed with Angela as well as potential risks which included but were not inclusive of bleeding and/or perforation. In regards to her foot at this time I would recommend that we place Iodosorb overlying the wounds that are necrotic given her history for some vascular compromise to her right lower extremity. With paint the dry eschars with Betadine. Would place an Allevyn foam dressing overlying the wound upon the Achilles region. Agree otherwise with current management of this patient. She is being treated empirically for peptic ulcer disease and is on Protonix drip. Given her cellulitis and possible osteomyelitis involving her right diabetic foot ulceration she is being covered appropriately with broad-spectrum antibiotics consisting of vancomycin and Zosyn. Infectious Disease has been consulted. Will plan on proceeding with EGD tomorrow once the patient has become further stabilized. [facility]
[2017-11-12] MEDS: SODIUM BICARBONATE 75 MEQ in D5W 1,000 ML IV SCH ×3 (01:14→23:16)
[2017-11-12] MEDS: PIPERACILLIN/TAZOBACTAM 3.375 GM in NS 100 ML IV SCH ×4 (06:04→23:46)
[2017-11-12] MEDS: PANTOPRAZOLE IV 80 MG in NS 250ml 250 ML IV SCH ×3 (06:04→23:12)
[2017-11-12] MEDS: LEVOTHYROXINE 25 MCG TABLET PO SCH (06:05)
[2017-11-12] MEDS: ALBUTEROL 2.5mg/3ml (0.083%) NEB AEROSOL SCH ×2 (08:00→20:07)
--- NOTE | 2017-11-12 08:54 | General Surgery Progress Note ---
Subjective Narrative: When I saw her earlier this morning she had just finished her bath, quite out of breath from this activity. She does state she uses oxygen at home but no C- Pap. EGD is scheduled for noon today. She denies nausea. - Vital Signs Last Vital Signs Temp 98.2 F 11/12/17 08:01 Pulse 64 11/12/17 08:01 Resp 27 H 11/12/17 08:06 BP 174/72 H 11/12/17 08:01 Pulse Ox 96 11/12/17 08:06 - Laboratory Result Diagrams: 11/12/17 04:05 11/12/17 04:05 Laboratory Tests 11/10/17 11/10/17 11/11/17 14:16 21:57 04:32 Hgb 7.7 L 7.2 L 7.8 L 11/11/17 11/12/17 14:09 04:05 Hgb 8.1 L 7.9 L - Microbiogy Microbiology 11/10/17 22:26 Heel, Right Gram Stain - Final 11/10/17 22:26 Heel, Right Superficial Wound Culture - Preliminary No Growth After 1 Day - Abnormal Exam Respiratory: other (faint crackles at bases R>L) Male: other (Longoria with bloody bright red urine, nursing reports it would periodically become nearly clear yellow for a short time during the night) Skin: LLE is without edema. RLE 1=2+ edema. Erythema of the foot and the lower one half of her calf with dressings to foot, ankle, toes - Normal Exam General: awake, alert, oriented Cardiovascular: regular rhythm, regular rate Abdominal: soft, non-tender Assessment and Plan (1) Acute anemia Current Visit: Yes Status: Acute (2) Diabetic foot ulcers Current Visit: Yes Status: Chronic Qualifiers: Diabetic foot ulcer location: midfoot Diabetes mellitus type: type 2 Laterality: right Non-pressure ulcer stage: with muscle involvement without evidence of necrosis Qualified Code(s): E11.621 - Type 2 diabetes mellitus with foot ulcer; L97.415 - Non-pressure chronic ulcer of right heel and midfoot with muscle involvement without evidence of necrosis Plan: DRessings have been orderd for foot ulcers, will monitor. EGD planned for noon today. Hospital Course Summary Disclaimer: The visit summary below is not to be considered part of the above Progress Note. Hospital Course: Impression: 1. Acute anemia 2. Suspected GI bleed 3. Esophageal cancer with current chemotherapy 4. Sepsis, suspected due to right lower extremity wound 5. Chronic right lower extremity wound with exacerbation of infection 6. PAD with recent ballooning and/or stenting of the RLE vascular system 7: Acute on chronic kidney injury, baseline creatinine approximately 1.3 8. Heart failure, preserved ejection fraction\VHD\known PFO 8. Atrial fibrillation 9. Poor vascular access 10. History of polymicrobial, MDR infection 11. COPD with chronic hypoxemia 12. Acute bronchitis 13. Recent UTI 14. Hypovolemia Plan: Admit, inpatient, ICU. Admitting: Dr. Carrillo. PCP: Dr. Rachel Dietz Patient will receive a single unit of blood now. Per blood bank, she usually receives leuko-reduced, irradiated blood. We will obtain additional H&H at around 6 hours from time of admission. I suspect that she is likely more anemic than her labs reveal due to significant hypovolemia. We may need additional transfusion this evening. Protonix drip per protocol. Have a PICC line placed due to poor vascular access. (I discussed this with the patient, risk and benefits discussed, she is in agreement to have PICC line placed) Hold aspirin and Plavix this evening. We will need to obtain records from [facility] regarding specific procedures in the morning. Consult Dr. Lopez in the morning for further evaluation of GI bleeding. Check INR now. We will hold her antihypertensive currently. She is at high risk for hemodynamic instability. Hold diuretics. Continue amiodarone to help with rhythm control. She is not on full strength anticoagulation. Again, we will need to hold her aspirin and Plavix this evening, and further addressed in the morning. She is followed routinely by Dr. John Leyva. Monitor for fluid overload due to known history of heart failure and valvular heart disease. She has recently been on chemotherapy, therefore is immunocompromised. She also has a history of MDR infections. We'll consult Dr. Afua Fernandez in the morning. Start on Zosyn and vancomycin. Blood cultures have been drawn in the emergency department. I will request UA, wound cultures, and sputum cultures. Most recent urine cultures have been reviewed. Check lactate now and recheck per protocol. Continue O2 per home regimen. Restart breathing treatments. DVT prophylaxis: Will hold off for now. Due to very recent vascular stenting, I do not feel comfortable placing SCDs. No blood thinners due to known bleeding. CODE STATUS: I did discuss this with the patient. She remains a DO NOT RESUSCITATE as documented in her past medical history. Extensive time was spent this evening, greater than 90 minutes, and review of the medical record, exam, discussion with care team members, etc. Patient is very ill, will require close monitoring.
--- NOTE | 2017-11-12 10:15 | Progress Note ---
- Date 11/12/17 Subjective: The patient was seen this morning in her room. She states she feels tired. She didn't sleep well last night and felt like she was "sorting things "in her dreams all night. She has hematuria that started yesterday. She has a Longoria catheter in place. She denies any bladder pain. She denies any previous history of hematuria. She denies any lightheadedness. She states she occasionally feels short of breath but not now. She denies any abdominal pain. She does have some pain in her foot where she has an infected diabetic foot wound. She has had no fevers but feels cold, this is normal for her. Objective Vital signs: Temperature 98.2 F 11/12/17 08:01 Pulse Rate 60 11/12/17 09:38 Respiratory Rate 27 H 11/12/17 08:06 Blood Pressure 174/72 H 11/12/17 08:01 Pulse Oximetry 96 11/12/17 08:06 Height/Weight/BMI: Height 1.63 m Weight 77.7 kg Body Mass Index 29.0 Comments: I&O yesterday is approximately 3 L/2 L She is afebrile, heart rate 60, blood pressure 167/73, O2 sat 93% on 3 L GEN-drowsy but arousable, no acute distress HEENT-oropharynx is mildly dry NECK-supple CV-regular rate and rhythm CHEST-clear to auscultation anteriorly ABD-soft, nontender with positive bowel sounds -Longoria in place with red urine, no clots seen EXT-no edema left leg. Right foot is wrapped. Right pickard is still erythematous and calf is still edematous NEURO-no focal deficits SKIN-warm and dry. No skin issues other than right calf and right foot. Results - Labs CBC & Chem 7: 11/12/17 04:05 11/12/17 04:05 Microbiology Results: Microbiology 11/10/17 22:26 Heel, Right Gram Stain - Final 11/10/17 22:26 Heel, Right Superficial Wound Culture - Preliminary Enterococcus species Gram Positive Cocci Corynebacterium species Assessment and Plan (1) Acute anemia Current visit: Yes Status: Acute Assessment and Plan: Impression: 1. Acute anemia-hemoglobin was 7.1 at the end of October and she received 1 unit of blood with hemoglobin improving to 8.0 and is 7.9 today. Per previous lab. [facility], hemoglobin has been around the 10 range from June to September of this year. 2. Suspected GI bleed -hemoglobin was apparently 7.1 at the end of October. If she has a GI bleed it has been slow at this point. Stool was Hemoccult positive but did not appear melanotic or grossly bloody. 3. Esophageal cancer with current chemotherapy 4. Sepsis, suspected due to right lower extremity wound-resolved 5. Chronic right lower extremity wound with exacerbation of infection-reported recent debridement of her foot wound a week and half ago 6. 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 Hernandez and he would prefer that she stay on aspirin and Plavix, but if concerns for acute GI bleed he is okay with discontinuation of Plavix. 7: Acute on chronic kidney injury, baseline creatinine approximately 1.3-was 1.6 -1.7 at the end of October. Creatinine has improved to 1.3 today. 8. Heart failure, preserved ejection fraction\\VHD\\known PFO 8. Atrial fibrillation-currently sinus rhythm 9. Poor vascular access-PICC line placed 11/10/2017 10. History of polymicrobial, MDR infection 11. COPD with chronic hypoxemia-on 2 L 12. Acute bronchitis-improved 13. Recent UTI-resolved 14. Hypovolemia-improving 15. Hypernatremia 16. Metabolic acidosis-improved on bicarbonate IV 17. 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 Syncope prior to admission with generalized weakness 19. Hematuria 20. Mild acute respiratory failure requiring 3 L of oxygen-normally on 2 L of oxygen daily Plan The patient's hemoglobin has been stable for the last 24 hours. Hemoglobin is currently 7.9. She received 1 unit of blood on the evening of admission. She is currently nothing by mouth for EGD around noon today. Blood pressures have been elevated today and she would likely benefit from restarting amlodipine and carvedilol. Lisinopril and Bumex has been on hold for acute kidney injury. Could consider restarting these soon as well. Regarding hematuria, will check urinalysis. Continue incentive spirometer to help with mild acute on chronic hypoxic respiratory failure. Consider DC IV fluids after ETT depending upon results We'll determine whether or not restart aspirin and/or Plavix after EGD Continue Protonix drip for now. Continue off of aspirin and Plavix for now. Continue on vancomycin and Zosyn for infected diabetic foot wound. Recheck CBC, renal panel tomorrow. Repeat chest x-ray tomorrow if not down to baseline oxygen level. Discussed with the patient's nurse and Dr. Lopez. Greater than 40 minutes of critical care time spent seeing and evaluating the patient in determining care plan. GI Prophylaxis: Protonix Resuscitation Status: Do Not Resuscitate - Physician Narrative Narrative: Date: 11/12/17 Time: 1009 Hospital Course Summary Disclaimer: The visit summary below is not to be considered part of the above Progress Note. Hospital Course: Impression: 1. Acute anemia 2. Suspected GI bleed 3. Esophageal cancer with current chemotherapy 4. Sepsis, suspected due to right lower extremity wound 5. Chronic right lower extremity wound with exacerbation of infection 6. PAD with recent ballooning and/or stenting of the RLE vascular system 7: Acute on chronic kidney injury, baseline creatinine approximately 1.3 8. Heart failure, preserved ejection fraction\\VHD\\known PFO 8. Atrial fibrillation 9. Poor vascular access 10. History of polymicrobial, MDR infection 11. COPD with chronic hypoxemia 12. Acute bronchitis 13. Recent UTI 14. Hypovolemia Plan: Admit, inpatient, ICU. Admitting: Dr. Carrillo. PCP: Dr. Rachel Dietz Patient will receive a single unit of blood now. Per blood bank, she usually receives leuko-reduced, irradiated blood. We will obtain additional H&H at around 6 hours from time of admission. I suspect that she is likely more anemic than her labs reveal due to significant hypovolemia. We may need additional transfusion this evening. Protonix drip per protocol. Have a PICC line placed due to poor vascular access. (I discussed this with the patient, risk and benefits discussed, she is in agreement to have PICC line placed) Hold aspirin and Plavix this evening. We will need to obtain records from [facility] regarding specific procedures in the morning. Consult Dr. Lopez in the morning for further evaluation of GI bleeding. Check INR now. We will hold her antihypertensive currently. She is at high risk for hemodynamic instability. Hold diuretics. Continue amiodarone to help with rhythm control. She is not on full strength anticoagulation. Again, we will need to hold her aspirin and Plavix this evening, and further addressed in the morning. She is followed routinely by Dr. John Leyva. Monitor for fluid overload due to known history of heart failure and valvular heart disease. She has recently been on chemotherapy, therefore is immunocompromised. She also has a history of MDR infections. We'll consult Dr. Afua Fernandez in the morning. Start on Zosyn and vancomycin. Blood cultures have been drawn in the emergency department. I will request UA, wound cultures, and sputum cultures. Most recent urine cultures have been reviewed. Check lactate now and recheck per protocol. Continue O2 per home regimen. Restart breathing treatments. DVT prophylaxis: Will hold off for now. Due to very recent vascular stenting, I do not feel comfortable placing SCDs. No blood thinners due to known bleeding. CODE STATUS: I did discuss this with the patient. She remains a DO NOT RESUSCITATE as documented in her past medical history. Extensive time was spent this evening, greater than 90 minutes, and review of the medical record, exam, discussion with care team members, etc. Patient is very ill, will require close monitoring. 11/11/2017 Plan The patient's hemoglobin did improve after 1 unit of blood. She is feeling just a little bit stronger. Sodium has increased overnight. She still has metabolic acidosis with bicarbonate of 18. Lactate has been normal 3. Will change IV fluids to D5 W with 75 mEq of sodium bicarbonate. Continue to monitor renal function closely. Regarding anemia and concern for possible GI bleed, hemoglobin had been in the 10 range until at least September of this year. When she went to [place] for procedure at the end of October, her hemoglobin was 7.1 and she was given 1 unit of blood. Hemoglobin at discharge was 8.0. She was admitted yesterday with heme positive stool but did not have any melena or debbie hematic usually a. She had been on aspirin and Plavix for recent angioplasty of her right lower extremity. Her driver education road instructor prefers that she would stay on aspirin and Plavix, but Plavix could be discontinued if there were significant concerns for GI bleed. Continue on Protonix drip for now.Continue to hold aspirin and Plavix for now. We'll make the patient nothing by mouth now in case she does need EGD regarding anemia and heme positive stool. Dr. Lopez was consulted regarding infected diabetic foot wound in her right lower extremity and regarding possible GI bleed with known esophageal cancer. Dr. Fernandez was consulted regarding the patient's diabetic foot wound. Will discuss patient's anemia, possible GI bleed and esophageal cancer with Dr. Newman. Recheck CBC, renal panel and magnesium tomorrow. Discussed with Dr. Lopez, Dr. Fernandez, and Dr. Hernandez.
[2017-11-12] MEDS: FERROUS SULFATE 324 MG TABLET PO SCH ×3 (10:41→22:24)
[2017-11-12] MEDS ORDERED: LIDOCAINE VISCOUS 2% ORAL LIQUID 15ml ONE (11:26)
--- NOTE | 2017-11-12 12:22 | Anesthesia Preoperative Report ---
Anesthesia Preoperative Record - Date and Time Date: 11/12/17 Preoperative Diagnosis: GI bleed,diabetic foot ulcer,cellulitis Proposed Procedure: EGD NPO Since Date: 11/10/17 NPO Since Time: 23:00 Allergies/Adverse Reactions: Allergies Allergy/AdvReac Type Severity Reaction Status Date / Time sulfamethoxazole Allergy Unknown hives Verified 11/10/17 14:25 trimethoprim Allergy Unknown HIVES Verified 11/10/17 14:25 niacin AdvReac Intermediate HIVES Verified 11/10/17 14:25 - Vital Signs Vital Signs: Temperature 98.2 F 11/12/17 08:01 Pulse Rate 64 11/12/17 12:00 Respiratory Rate 32 H 11/12/17 12:00 Blood Pressure 165/72 H 11/12/17 11:00 Pulse Oximetry 97 11/12/17 12:00 Height and Weight: Height 5 ft 4 in Weight 77.7 kg Body Mass Index 29.0 - Medications Inpatient Medications: Current Medications Acetaminophen (Tylenol) 500 mg PO Q6H PRN PRN Reason: Pain Albuterol Sulfate (Proventil Neb (0.083%)) 2.5 mg AEROSOL BID [facility] Last Admin: 11/12/17 08:00 Dose: 2.5 mg Amiodarone HCl (Pacerone) 200 mg PO DAILY [facility] Last Admin: 11/11/17 18:00 Dose: Not Given Amlodipine Besylate (Norvasc) 2.5 mg PO DAILY [facility] Atorvastatin Calcium (Lipitor) 40 mg PO HS [facility] Last Admin: 11/11/17 21:02 Dose: 40 mg Carvedilol (Coreg) 12.5 mg PO BID [facility] Dextrose (D50%W) 10 ml IVP PRN PRN PRN Reason: Hypoglycemia Ferrous Sulfate (Feosol) 324 mg PO WB [facility] Last Admin: 11/12/17 10:41 Dose: Not Given Ferrous Sulfate (Feosol) 324 mg PO TID [facility] Piperacillin Sod/Tazobactam (Sod 3.375 gm/ Sodium Chloride) 100 mls @ 200 mls/ hr IV Q6H [facility] Last Admin: 11/12/17 10:44 Dose: 200 mls/hr Pantoprazole Sodium 80 mg/ (Sodium Chloride) 250 mls @ 25 mls/hr IV .Q10H [facility] PRN Reason: 8 MG/HR Last Admin: 11/12/17 10:44 Dose: 8 mg/hr, 25 mls/hr Vancomycin HCl 1,000 mg/ (Sodium Chloride) 250 mls @ 250 mls/hr IV Q24H [facility] Last Infusion: 11/11/17 22:05 Dose: Infused Sodium Bicarbonate 75 meq/ (Dextrose) 1,075 mls @ 75 mls/hr IV .[id number] [facility] Last Infusion: 11/12/17 07:00 Dose: 75 mls/hr Insulin Aspart (Novolog) 1 - 5 unit SQ SS PRN; Protocol PRN Reason: Hyperglycemia Insulin Detemir (Levemir) 10 unit SQ HS [facility] Last Admin: 11/11/17 21:01 Dose: 10 unit Levothyroxine Sodium (Synthroid) 25 mcg PO ACB [facility] Last Admin: 11/12/17 06:05 Dose: Not Given Lorazepam (Ativan) 0.5 mg PO BID PRN PRN Reason: Anxiety Metoclopramide HCl (Reglan) 5 mg IVP Q6H PRN PRN Reason: Nausea Mirtazapine (Remeron) 15 mg PO [facility] Morphine Sulfate (Morphine Sulfate Inj) 2 mg IVP Q3-4HR PRN PRN Reason: Pain Sodium Chloride (Iv Flush) 10 - 80 ml IVF PRN PRN PRN Reason: Flushing Last Admin: 11/10/17 14:40 Dose: 10 ml Sodium Chloride (Normal Saline) 500 ml IV PRN PRN Last Admin: 11/10/17 14:48 Dose: 500 ml Sodium Chloride (Iv Flush) 10 ml IV PRN PRN PRN Reason: Flushing Home Medications: Home Medications Medication Instructions Recorded Confirmed Type Carvedilol 12.5 mg PO BID #0 07/25/16 11/10/17 History Insulin Aspart [NovoLOG] 1 unit SQ WB #0 07/25/16 11/10/17 History Albuterol Neb (0.083%) [Proventil 2.5 mg AEROSOL Q6HR PRN 02/27/17 11/10/17 History Neb (0.083%)] Mirtazapine [Remeron] 15 mg PO HS 02/27/17 11/10/17 History [place]-3 Fatty Acids [Fish Oil 1,000 mg PO QID 02/27/17 11/10/17 History Concentrate] Multivit-Min/Folic Acid/Biotin 1 tab PO DAILY 05/16/17 11/10/17 History [Women Multivit W-Biotin Gummy] Insulin Detemir [Levemir] 16 unit SQ HS #0 06/24/17 11/10/17 Rx Lisinopril [Prinivil] 2.5 mg PO DAILY #30 tab 06/24/17 11/10/17 Rx Amlodipine [Norvasc] 2.5 mg PO DAILY 06/27/17 11/10/17 History Peg 3350 238 G Bottle [Miralax] 17 gm PO DAILY PRN 06/27/17 11/10/17 History Sucralfate [Carafate] 1 gm PO QID 06/27/17 11/10/17 History Calcium Carbonate/Vitamin D3 1 tab PO DAILY 08/30/17 11/10/17 History [Calcium 600-Vit D3 200 Tablet] Ferrous Sulfate 325 mg PO TID 08/30/17 11/10/17 History Bumetanide Tab [Bumex 1 mg Tab] 1 mg PO BID 09/02/17 11/10/17 History Levothyroxine Tab [Synthroid] 25 mcg PO ACB #30 tab 09/02/17 11/10/17 Rx Acetaminophen [Tylenol] 500 mg PO Q6H PRN 11/01/17 11/10/17 History Amiodarone [Pacerone] 200 mg PO DAILY 11/01/17 11/10/17 History Ascorbic Acid 500 mg PO DAILY 11/01/17 11/10/17 History Aspirin [Adult Aspirin Regimen] 81 mg PO DAILY 11/01/17 11/10/17 History Atorvastatin [Lipitor] 40 mg PO HS 11/01/17 11/10/17 History Clopidogrel [Plavix] 75 mg PO DAILY 11/01/17 11/10/17 History LORazepam [Ativan] 0.5 mg PO DAILY PRN 11/01/17 11/10/17 History Vitamin E 400 unit PO DAILY 11/01/17 11/10/17 History Insulin Aspart [NovoLOG] 6 unit SQ WL 11/10/17 11/10/17 History Insulin Aspart [NovoLOG] 6 unit SQ WS 11/10/17 11/10/17 History Is Patient on Beta Gui?: Yes - Medical History Respiratory: Reports: Chronic Obstructive Pulmonary Disease (COPD) (nebs txs. SOB with exertion. 2L home O2 at all times), Sleep Apnea Cardiovascular: Reports: Arrhythmia (afib), Congestive Heart Failure, Hypertension Gastrointestional: Reports: Gastroesophageal Reflux Disease (well controlled) Neuro/Musculoskeletal: Reports: Depression, Muscle Weakness Renal/Endocrine: Reports: Diabetes Mellitus Type 1, Diabetes Mellitus Type 2, Renal Failure Other History: Reports: Cancer (Esophageal (current)), Other (removal of PAC Rt chest) - Surgical History HEENT Surgeries: Reports: Eye Surgery (CATARACT REMOVAL) Cardiac Surgeries/Treatments: Reports: Cardiac Catheterization, Pacemaker Respiratory Surgery/Treatments: Reports: Oxygen Administration (2l/nc cont) DENIES: BiPAP Use, CPAP Use GI Surgery/Treatments: Reports: Appendectomy, EGD (esophageal cancer) Musculoskeletal Surgery/Tx: Reports: Other (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) Reproductive Surgery/Treatment: Reports: Hysterectomy DENIES: Mastectomy - Social History Smoking Status: Former smoker Hx Chewing Tobacco Use: No Second Hand Exposure: No Substance Use Type: does not use Alcohol Intake: never Alcohol Intake Frequency: does not drink - Pertinent Findings Laboratory: CBC and BMP 11/12/17 04:05 11/12/17 04:05 BMP 11/11/17 11/12/17 14:09 04:05 Sodium 152 H 151 H Potassium 4.5 3.9 Chloride 126 H 122 H Carbon Dioxide 18 L 20 L BUN 51.0 H* 39.0 H Creatinine 1.4 H D 1.3 H D Glucose 78 74 Calcium 8.3 L 8.0 L Liver Function 11/12/17 Range/Units 04:05 Albumin 2.4 L (3.5-5.0) g/dL Urine 11/12/17 Range/Units 10:35 Urine Color Red (YELLOW) Urine Clarity Cloudy Urine pH 6.0 (5.0-8.0) Ur Specific [place] 1.015 (1.015-1.025) Urine Protein 2+ A (NEGATIVE) Urine Glucose (UA) Negative (NEGATIVE) EKG: Sinus Rhythm, First Degree AV Block - Physical Exam Respiratory Exam: Present: decreased breath sounds-L, decreased breath sounds-R Cardiovascular Exam: Present: regular rate and rhythm - Airway Assessment Mallampati Score: II TMD: 3 Fingerbreadths Neck Extension: fair Overall Assessment: no airway concerns - ASA ASA Score: 4 - Plan Anesthesia: General TIVA - Discussion Discussion: Discussed risks/options/alternatives of anesthesia and questions answered. Patient consents. Nursing pain assessment noted. Present for Discussion: family member (sister) Attestation Statement: Prior to the delivery of any anesthetic medication, I examined the patient, developed the plan, obtained the patient's consent and discussed the risk and benefits of the procedure with the patient/guardian. - Additional Information Seen by Anesthesia: Yes
[2017-11-12] MEDS: LR 1,000 ML IV SCH (12:40)
--- NOTE | 2017-11-12 12:45 | Procedure Note ---
- Procedure Date/Time: Date: 11/12/17 Time: 1240 Surgeon: Jessica ASA Score: 4 Proceure: EGD- esophagus biopsies (distal esophagus mass) - Preoperative Diagnosis Anemia, Esophageal cancer - Postoperative EGD Diagnosis Postoperative EGD Diagnosis: Other (Distal esophageal mass with ulceration) - Complications Estimated Blood Loss: See Anesthesia Record. Vital Signs: See Anesthesia and PACU record.
--- NOTE | 2017-11-12 13:04 | Anesthesia Postoperative Note ---
- Date and Time Date: 11/12/17 Time: 13:04 - Status Patient Participated in Evaluation: Patient Participated in Person Vital Signs: Temperature 98.2 F 11/12/17 08:01 Pulse Rate 64 11/12/17 12:00 Respiratory Rate 32 H 11/12/17 12:00 Blood Pressure 165/72 H 11/12/17 11:00 Pulse Oximetry 97 11/12/17 12:00 Respiratory Function: Airway Patent Cardiovascular Function: Regular Pulse Mental Status: Alert and Oriented Pain Intensity: 0 Hydration: IV Infusing Complications During Recover: None Apparent - Follow-Up Instructions Instructions: Per Surgeon
[2017-11-12] MEDS: AMIODARONE 200 MG TABLET PO SCH (13:54)
[2017-11-12] MEDS: AMLODIPINE 2.5 MG TABLET PO SCH (13:54)
[2017-11-12] MEDS: NS 1,000 ML IV SCH (16:50)
--- NOTE | 2017-11-12 17:00 | Operative Note ---
DATE OF SERVICE 11/12/2017 SURGEON Phil Lopez MD PREOPERATIVE DIAGNOSES Anemia, personal history for esophageal cancer. POSTOPERATIVE DIAGNOSES Anemia, personal history for esophageal cancer; distal esophageal mass with associated ulceration. PROCEDURE Esophagogastroduodenoscopy with biopsies from distal esophagus via cold biopsy technique. ANESTHESIA TIVA BRIEF HISTORY/INDICATIONS Mrs. Ball is an elderly 82-year-old female who is well known my surgical practice. She was recently admitted to our facility as a result of progressive anemia. She does have a known history for esophageal cancer. It was recommended as a result of the above indications that she undergo an EGD for further evaluation. For completeness please refer notes included in the patient 's chart. FINDINGS Upon upper endoscopy the patient was found to have a mass involving the distal esophagus. This mass did appear neoplastic in nature. Within the central portion of this mass there was a long linear ulcer containing a white exudate- like material overlying the ulcer bed. The ulcer itself was perhaps about 3 cm in length and about a centimeter in width. The mass did extend into the cardia of the stomach. Photos were obtained for documentation purposes. Stomach and duodenum were within normal limits. DESCRIPTION OF PROCEDURE After informed consent was obtained the patient was brought to the endoscopy suite and placed on the table in left lateral decubitus position. The patient subsequently underwent total intravenous anesthesia by the nurse housing officer per my request. Formal time-out was then completed. Next, an Olympus gastroscope was inserted in the oral hypopharynx and subsequently the esophagus under direct visualization. Gastroscope was advanced through the esophagus, stomach, pylorus, duodenal bulb, to the second portion of duodenum. Scope was slowly withdrawn. First and second portions the duodenum were within normal limits. No evidence of duodenitis or ulcerations were noted. There was no evidence of old blood upon the surface of the mucosa. Gastroscope was then withdrawn back into the prepyloric region and antrum. Again, no mucosal abnormalities were noted. J maneuver was then performed. Cardia and fundus of the stomach were visualized. Fundal portion of the stomach was without noted abnormalities. Upon J maneuver, within the cardia of the stomach, one could see a linear ulcer extending up into the esophagus. Additionally, there appeared to be some polypoid-like masses adjacent to this ulceration indicative of distal esophageal cancer. Again, photos were obtained documentation purposes. The scope was then allowed to straighten and slowly withdrawn and the remaining corpus of the stomach was well visualized and, again, without noted abnormalities. Scope was withdrawn back to the level of the diaphragm. As stated above, there was a linear ulceration at this location which was about 3 cm in length and about a centimeter in width. The ulcer did extend into the cardia of the stomach as well as up into the esophagus a couple of centimeters. Photos were obtained for documentation purposes. There was a exophytic/ polypoid-like mass adjacent to the edge of this ulceration. Biopsies were obtained from this apparent neoplastic process via cold biopsy technique. No active bleeding was present. Gastroscope was then slowly withdrawn and the remaining esophageal mucosa was found within normal limits. The patient tolerated the procedure without difficulty and was sent back to the recovery room once deemed in stable condition. ANGELA
[2017-11-12 17:20] VITALS: BMI 29.4
[2017-11-12] MEDS: INSULIN ASPART 100unit/ml INJECTION SQ PRN (17:50)
[2017-11-12] MEDS: CARVEDILOL 12.5 MG TABLET PO SCH ×2 (18:48→22:24)
[2017-11-12] MEDS: MIRTAZAPINE 15 MG TABLET PO SCH (22:23)
[2017-11-12] MEDS: ATORVASTATIN 40 MG TABLET PO SCH (22:23)
[2017-11-12] MEDS: INSULIN DETEMIR 100unit/ml INJECTION SQ SCH (22:43)
[2017-11-13] MEDS: PIPERACILLIN/TAZOBACTAM 3.375 GM in NS 100 ML IV SCH ×5 (05:55→23:36)
[2017-11-13] MEDS: LEVOTHYROXINE 25 MCG TABLET PO SCH (07:04)
[2017-11-13] MEDS: ALBUTEROL 2.5mg/3ml (0.083%) NEB AEROSOL SCH ×2 (07:10→19:48)
--- NOTE | 2017-11-13 08:48 | ID Progress Note ---
Subjective Date: 11/13/17 Subjective: Ms. Ball reports that her breathing has been more difficult today. She denies pain. EGD results noted. She's been afebrile. No N/V or diarrhea. Exam Vital Signs: Temperature 98.3 F 11/13/17 00:00 Pulse Rate 62 11/13/17 06:00 Respiratory Rate 29 H 11/13/17 07:10 Blood Pressure 157/69 H 11/13/17 06:00 Pulse Oximetry 93 11/13/17 07:10 Height/Weight/BMI: Height 1.63 m Weight 77.7 kg Body Mass Index 29.4 - Constitutional Present: no acute distress, well nourished, well developed Comments: appears very pale - Routine HEENT Exam Head: Present: normocephalic, atraumatic Eye: Present: EOMI, PERRL ENT: Present: mucous membranes dry, oropharynx clear - Routine Neck Exam Present: supple - Routine Respiratory Exam Present: CTA bilaterally (anteriorly) Comments: on 3L O2 - Routine Cardiovascular Exam Present: RRR - Routine Abdominal Exam Present: soft, non distended, non tender Comments: hypoactive bowel sounds - Routine Extremities Exam Present: edema (traace to 1+ RLE). Absent: cyanosis, clubbing - Routine Skin Exam Absent: rash Comments: mild/moderate erythema over RLE, seems improved. Two wounds on R foot with some mild drainage. Charcot foot changes R foot. - Routine Neurological Exam Present: alert, oriented X3, CN II-XII intact, normal speech. Absent: motor deficit - Routine Psychiatric Exam Present: normal affect, normal thought process Results - Labs CBC & Chem 7: 11/13/17 04:24 11/13/17 04:19 Microbiology Results: Microbiology 11/12/17 10:54 Sputum, Expectorated Gram Stain - few GPC, culture with early growth 11/12/17 10:35 Urine, Cath [place] Urine Culture - Preliminary Culture Initiated - Results Pending 11/10/17 22:26 Heel, Right Gram Stain - Final 11/10/17 22:26 Heel, Right Superficial Wound Culture - Preliminary Enterococcus species Gram Positive Cocci Corynebacterium species Impression: Sepsis secondary to skin/soft tissue source Diabetic foot infection R foot with cellulitis PVD s/p R SFA atherectomy/[employer] 10/31/17 Recent syncopal episode anemia, macrocytic s/p EGD 11/12 with ulcer near esophageal mass, biopsy showed adenocarcinoma Diabetic foot wound R 1st MT head, wound culture with MSSA, and Proteus. Bone scan 05/22/17 with abnormal uptake R 1st MT head consistent with osteomyelitis. S/p bone biopsy R 1st MT head 06/05/17 which was negative for osteomyelitis. Wound was noted to be healed on 09/25/17 and her cephalexin was stopped. Recurrent esophageal cancer, on weekly chemotherapy per Dr. Newman. H/o sepsis/septicemia with Pantoea species 2016, s/p Port removal 02/28/17. DM II, with peripheral neuropathy CKD stage III. COPD-chronic oxygen use at 2 liters Chronic atrial fibrillation s/p pacemaker implantation Hypertension GERD Hyperlipidemia Obstructive sleep apnea History of anemia and GI bleed. Allergies to cipro and sulfa (rash). Recommendation: Continue Vancomycin and Zosyn for now, pending further culture data. Consider CT of R foot. Defer any surgical debridement to Dr. Lopez.
[2017-11-13] MEDS: CARVEDILOL 12.5 MG TABLET PO SCH ×3 (09:37→18:17)
[2017-11-13] MEDS: BUMETANIDE 1 MG TABLET PO SCH ×2 (09:38→13:36)
[2017-11-13] MEDS: AMLODIPINE 2.5 MG TABLET PO SCH (09:38)
[2017-11-13] MEDS: AMIODARONE 200 MG TABLET PO SCH (09:38)
[2017-11-13] MEDS: ASPIRIN 81 MG CHEWABLE TABLET PO SCH (09:38)
[2017-11-13] MEDS: FERROUS SULFATE 324 MG TABLET PO SCH ×4 (09:41→20:31)
--- NOTE | 2017-11-13 09:48 | Progress Note ---
- Date 11/13/17 Subjective: Angela was seen in her room today accompanied by her sister. She still feels cold. She has pain in her right foot where she has her wound infection. She denies any chest pain. She feels short of breath at times. She denies any abdominal pain. She underwent EGD yesterday which showed an ulcer in the esophagus. Objective Vital signs: Temperature 98.3 F 11/13/17 00:00 Pulse Rate 62 11/13/17 06:00 Respiratory Rate 29 H 11/13/17 07:10 Blood Pressure 157/69 H 11/13/17 06:00 Pulse Oximetry 93 11/13/17 07:10 Height/Weight/BMI: Height 1.63 m Weight 77.7 kg Body Mass Index 29.4 Comments: Weight is 75.9 which is stable since admission. I&O yesterday 3550/1193 She is afebrile, heart rate 62, O2 sat 94% on 3 L, blood pressure 145/67. GEN-drowsy but arousable, appears chronically ill, pale, no acute distress HEENT-oropharynx is moist but she has been mouth breathing NECK-supple CV-regular rate and rhythm CHEST-minimal crackles in the bases ABD-soft, nontender with positive bowel sounds -Longoria in place with mildly dark urine, no longer bloody EXT-no edema of the left lower extremity, right foot and leg shows decreased erythema, wounds are being treated with Iodosorb. She does have edema of both hands. NEURO-generalized weakness SKIN-warm and dry Results - Labs CBC & Chem 7: 11/13/17 04:24 11/13/17 04:19 Labs: Albumin 2.5. C. difficile is negative. Microbiology Results: Microbiology 11/12/17 10:54 Sputum, Expectorated Gram Stain - Final 11/12/17 10:35 Urine, Cath [place] Urine Culture - Preliminary Culture Initiated - Results Pending 11/10/17 22:26 Heel, Right Gram Stain - Final 11/10/17 22:26 Heel, Right Superficial Wound Culture - Preliminary Enterococcus species Gram Positive Cocci Corynebacterium species 11/10/2017-blood cultures 2 negative after 2 days Assessment and Plan (1) Acute anemia Current visit: Yes Status: Acute Assessment and Plan: Impression: 1. Acute anemia-hemoglobin was 7.1 at the end of October and she received 1 unit of blood with hemoglobin improving to 8.0 and is stable so far. Per previous lab. [facility], hemoglobin has been around the 10 range from June to September of this year. 2. Upper GI bleed secondary to esophageal ulcer 3. Esophageal cancer with current chemotherapy 4. Sepsis, right lower extremity wound-resolved 5. Diabetic foot ulcer with skin and soft tissue infection-on Zosyn and vancomycin day 4. 6. PAD -On October 31 she underwent right SFA atherectomy and percutaneous angioplasty by Dr. Mcghee at [place]. discussed with Dr. Hernandez and he would prefer that she stay on aspirin and Plavix, but if concerns for acute GI bleed he is okay with discontinuation of Plavix. 7: Acute on chronic kidney injury, baseline creatinine approximately 1.3-was 1.6 -1.7 at the end of October. Creatinine has improved to 1.2 today. 8. Heart failure, preserved ejection fraction\VHD\known PFO 8. Atrial fibrillation-currently sinus rhythm 9. Poor vascular access-PICC line placed 11/10/2017 10. History of polymicrobial, MDR infection 11. COPD with chronic hypoxemia-on 2 L 12. Acute bronchitis-improved 13. Recent UTI-resolved 14. Hypovolemia-improving 15. Hypernatremia 16. Metabolic acidosis-resolved 17. 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 Syncope prior to admission with generalized weakness 19. Gross Hematuria-resolved 20. Mild acute respiratory failure requiring 3 L of oxygen-normally on 2 L of oxygen daily Plan The patient's hemoglobin has been stable for the last 48 hours hours. Hemoglobin is currently 8.1. She received 1 unit of blood on the evening of admission. EGD revealed an esophageal ulcer. No active bleeding. Discussed with Dr. Lopez. Will start aspirin 81 mg daily because of her recent angioplasty of right SFA. Add Carafate slurry. Change Protonix to by mouth. Blood pressures doing better after restarting amlodipine and carvedilol. Acute kidney injury has resolved. I&O is +5 L. We'll restart Bumex. Continue to hold lisinopril at this time. DC IV fluids and encourage by mouth fluid intake. This should help with hypernatremia. Supplements 3 times a day with meals for hypoalbuminemia. Discussed diabetic foot ulcers with skin and soft tissue infection with Dr. Lopez. He wants to wait and see how she does with Iodosorb treatment and will consider wound exploration later this week. If there are signs of osteo- myelitis during exploration, he would likely check an MRI at that point. Discussed skin and soft tissue infection with Dr. Fernandez today as well. Titrate O2 if able. Heel protector to the left foot. Increase activity as tolerated. Greater than 40 minutes of critical care time spent seeing and evaluating the patient in determining care plan. Continue to monitor in CCU today and transfer tomorrow if stable. DVT Prophylaxis: SCD's GI Prophylaxis: Protonix Resuscitation Status: Do Not Resuscitate - Physician Narrative Narrative: Date: 11/13/17 Time: 932 Hospital Course Summary Disclaimer: The visit summary below is not to be considered part of the above Progress Note. Hospital Course: Impression: 1. Acute anemia 2. Suspected GI bleed 3. Esophageal cancer with current chemotherapy 4. Sepsis, suspected due to right lower extremity wound 5. Chronic right lower extremity wound with exacerbation of infection 6. PAD with recent ballooning and/or stenting of the RLE vascular system 7: Acute on chronic kidney injury, baseline creatinine approximately 1.3 8. Heart failure, preserved ejection fraction\VHD\known PFO 8. Atrial fibrillation 9. Poor vascular access 10. History of polymicrobial, MDR infection 11. COPD with chronic hypoxemia 12. Acute bronchitis 13. Recent UTI 14. Hypovolemia Plan: Admit, inpatient, ICU. Admitting: Dr. Carrillo. PCP: Dr. Rachel Dietz Patient will receive a single unit of blood now. Per blood bank, she usually receives leuko-reduced, irradiated blood. We will obtain additional H&H at around 6 hours from time of admission. I suspect that she is likely more anemic than her labs reveal due to significant hypovolemia. We may need additional transfusion this evening. Protonix drip per protocol. Have a PICC line placed due to poor vascular access. (I discussed this with the patient, risk and benefits discussed, she is in agreement to have PICC line placed) Hold aspirin and Plavix this evening. We will need to obtain records from [facility] regarding specific procedures in the morning. Consult Dr. Lopez in the morning for further evaluation of GI bleeding. Check INR now. We will hold her antihypertensive currently. She is at high risk for hemodynamic instability. Hold diuretics. Continue amiodarone to help with rhythm control. She is not on full strength anticoagulation. Again, we will need to hold her aspirin and Plavix this evening, and further addressed in the morning. She is followed routinely by Dr. John Leyva. Monitor for fluid overload due to known history of heart failure and valvular heart disease. She has recently been on chemotherapy, therefore is immunocompromised. She also has a history of MDR infections. We'll consult Dr. Afua Fernandez in the morning. Start on Zosyn and vancomycin. Blood cultures have been drawn in the emergency department. I will request UA, wound cultures, and sputum cultures. Most recent urine cultures have been reviewed. Check lactate now and recheck per protocol. Continue O2 per home regimen. Restart breathing treatments. DVT prophylaxis: Will hold off for now. Due to very recent vascular stenting, I do not feel comfortable placing SCDs. No blood thinners due to known bleeding. CODE STATUS: I did discuss this with the patient. She remains a DO NOT RESUSCITATE as documented in her past medical history. Extensive time was spent this evening, greater than 90 minutes, and review of the medical record, exam, discussion with care team members, etc. Patient is very ill, will require close monitoring. 11/11/2017 Plan The patient's hemoglobin did improve after 1 unit of blood. She is feeling just a little bit stronger. Sodium has increased overnight. She still has metabolic acidosis with bicarbonate of 18. Lactate has been normal 3. Will change IV fluids to D5 W with 75 mEq of sodium bicarbonate. Continue to monitor renal function closely. Regarding anemia and concern for possible GI bleed, hemoglobin had been in the 10 range until at least September of this year. When she went to [facility] for procedure at the end of October, her hemoglobin was 7.1 and she was given 1 unit of blood. Hemoglobin at discharge was 8.0. She was admitted yesterday with heme positive stool but did not have any melena or debbie hematic usually a. She had been on aspirin and Plavix for recent angioplasty of her right lower extremity. 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 Continue on Protonix drip for now.Continue to hold aspirin and Plavix for now. We'll make the patient nothing by mouth now in case she does need EGD regarding anemia and heme positive stool. Dr. Lopez was consulted regarding infected diabetic foot wound in her right lower extremity and regarding possible GI bleed with known esophageal cancer. Dr. Fernandez was consulted regarding the patient's diabetic foot wound. Will discuss patient's anemia, possible GI bleed and esophageal cancer with Dr. Newman. Recheck CBC, renal panel and magnesium tomorrow. Discussed with Dr. Lopez, Dr. Fernandez, and Dr. Hernandez. 11/12/2017 Plan The patient's hemoglobin has been stable for the last 24 hours. Hemoglobin is currently 7.9. She received 1 unit of blood on the evening of admission. She is currently nothing by mouth for EGD around noon today. Blood pressures have been elevated today and she would likely benefit from restarting amlodipine and carvedilol. Lisinopril and Bumex has been on hold for acute kidney injury. Could consider restarting these soon as well. Regarding hematuria, will check urinalysis. Continue incentive spirometer to help with mild acute on chronic hypoxic respiratory failure. Consider DC IV fluids after ETT depending upon results We'll determine whether or not restart aspirin and/or Plavix after EGD Continue Protonix drip for now. Continue off of aspirin and Plavix for now. Continue on vancomycin and Zosyn for infected diabetic foot wound. Recheck CBC, renal panel tomorrow. Repeat chest x-ray tomorrow if not down to baseline oxygen level. Discussed with the patient's nurse and Dr. Lopez. Greater than 40 minutes of critical care time spent seeing and evaluating the patient in determining care plan.
[2017-11-13] MEDS: SUCRALFATE 1gm/10ml ORAL LIQUID PO SCH ×3 (12:16→21:21)
--- NOTE | 2017-11-13 14:01 | Pharmacy Consult-Antibiotics ---
Pharmacy Consult-Vancomycin - Laboratory Information WBC 9.0 T/MM3 (4.5-11.0) 11/13/17 04:24 BUN 30.0 MG/DL (7-17) H 11/13/17 04:19 Creatinine 1.2 mg/dL (0.7-1.2) 11/13/17 04:19 - Consult Information VANCOMYCIN SHORT REVIEW: Today's SCr = 1.2 mg/dL. Calculated CrCl = 37 mL/min Will change the Vancomycin to 1,250 mg IV Q24hrs. Will continue to monitor and make adjustments accordingly. Thank you, Cyrus Winkler, Pharmacist
[2017-11-13] MEDS: PANTOPRAZOLE IV 80 MG in NS 250ml 250 ML IV SCH (14:02)
--- NOTE | 2017-11-13 15:34 | Progress Note ---
DATE 11/13/2017 FINDINGS Ms. Ball was seen this morning on rounds. She stated that she was feeling quite weak and fatigue. She did appear fairly pale and frail this morning. Her sister was present at the bedside. VITALS: Temperature 98.5, pulse 69, respirations 29, blood pressure 157/62, SaO2 93% on 3 liters per nasal cannula.. HEENT: Normocephalic. Pupils are equal, round and reactive to light and accommodation. CHEST: Clear to auscultation bilaterally. HEART: Regular rate and rhythm. Normal S1 and S2 without gallops, murmurs or clicks. ABDOMEN: Soft, nontender. No evidence for guarding or rebound. LABORATORY/RADIOGRAPH EVALUATION The patient had a CBC today and her hemoglobin is stable at 8.1. White count was stable at 9.0. BMP obtained and her creatinine and BUN continue to improve at 1.2 and 30, respectively. Still with some electrolyte abnormalities. ASSESSMENT 1. 82-year-old female with multiple medical comorbidities who presented with progressive anemia, status post EGD revealing endoscopic evidence for esophageal malignancy at the distal esophagus in conjunction with long linear ulcer. 2. Right diabetic foot ulcerations with associated cellulitis. PLAN 1. From an esophageal ulcer standpoint, continue with a soft diet. Continue with ongoing medical management utilizing PPI. Also add Carafate 1 g p.o. q.i.d. 2. In regards to her diabetic foot ulcerations, will continue to utilize Iodosorb as an enzymatic debrider. Perhaps tomorrow or [place] at the bedside will proceed with excisional surgical debridement of the necrotic tissue that is still present after utilizing the Iodosorb to better assess the depth of the necrosis. If there is significant progression into the subcutaneous tissues or if bone is able to be probed within the depth of the wound at that time may proceed with obtaining an MRI of the right foot to rule in or rule out osteomyelitis. For now, will continue with the current care and proceed as above. [facility]
[2017-11-13] MEDS: PANTOPRAZOLE 40 MG TABLET PO SCH (18:18)
[2017-11-13] MEDS: ATORVASTATIN 40 MG TABLET PO SCH (20:31)
[2017-11-13] MEDS: INSULIN DETEMIR 100unit/ml INJECTION SQ SCH (20:31)
[2017-11-13] MEDS: MIRTAZAPINE 15 MG TABLET PO SCH (20:31)
[2017-11-14] MEDS: LEVOTHYROXINE 25 MCG TABLET PO SCH (05:37)
[2017-11-14] MEDS: SUCRALFATE 1gm/10ml ORAL LIQUID PO SCH ×4 (05:37→21:11)
[2017-11-14] MEDS: PANTOPRAZOLE 40 MG TABLET PO SCH ×2 (05:37→17:54)
[2017-11-14] MEDS: PIPERACILLIN/TAZOBACTAM 3.375 GM in NS 100 ML IV SCH ×3 (05:37→17:55)
[2017-11-14] MEDS: ALBUTEROL 2.5mg/3ml (0.083%) NEB AEROSOL SCH ×2 (06:29→19:29)
[2017-11-14] MEDS: BUMETANIDE 1 MG TABLET PO SCH ×2 (08:28→14:08)
[2017-11-14] MEDS: ASPIRIN 81 MG CHEWABLE TABLET PO SCH (08:28)
[2017-11-14] MEDS: AMIODARONE 200 MG TABLET PO SCH (08:28)
[2017-11-14] MEDS: CARVEDILOL 12.5 MG TABLET PO SCH ×2 (08:29→17:54)
[2017-11-14] MEDS: AMLODIPINE 2.5 MG TABLET PO SCH (08:29)
[2017-11-14] MEDS: FERROUS SULFATE 324 MG TABLET PO SCH ×2 (08:29→08:55)
[2017-11-14] MEDS ORDERED: LORazepam 0.5 MG TABLET PO PRN (10:17)
[2017-11-14] MEDS ORDERED: LISINOPRIL 2.5 MG TABLET PO SCH (10:30)
--- NOTE | 2017-11-14 10:41 | Progress Note ---
- Date 11/14/17 Subjective: The patient was seen this morning in her room accompanied by her nurse and both of her sisters. Patient states she's feeling better today. She states she feels more awake and has more energy. She does feel a little short of breath and has edema in her upper extremities. She has some mild pain in her right foot. She denies any pain with swallowing. She denies any epigastric pain. She was able to eat some biscuits and gravy for breakfast and has no nausea. She had a liquid stool yesterday and the day before. None today. She denies any chest pain. She has a Longoria catheter in place. She had gross hematuria 2 days ago, but this appears to have resolved. Objective Vital signs: Temperature 98.7 F 11/14/17 07:30 Pulse Rate 68 11/14/17 09:00 Respiratory Rate 37 H 11/14/17 09:00 Blood Pressure 166/73 H 11/14/17 08:30 Pulse Oximetry 95 11/14/17 09:00 Height/Weight/BMI: Height 1.63 m Weight 81.3 kg Body Mass Index 29.4 Comments: Weight is 81.3 kg. On admission weight was 76.6 kg. I&O since admission is +6 L She's been afebrile. Systolic blood pressure has been as high as 160s but is currently 140/65. Heart rate 69. O2 sat 95% on 3 L. She is chronically on 2 L. GEN-alert, oriented, does not appear as a little HEENT-sclera anicteric, oropharynx is moist NECK-supple CV-regular rate and rhythm. Telemetry shows sinus rhythm. CHEST-crackles in the lower one third of the lung field bilaterally ABD-soft, nontender with positive bowel sounds -Longoria in place with dave colored urine EXT-no edema left lower extremity, right foot wounds appear unchanged. Edema and erythema of the foot and lower calf are improved. Patient does have bilateral upper extremity edema. Heel protect her placed on the left foot to prevent skin breakdown NEURO-no focal deficits, alert and oriented SKIN-no abnormalities other than described above Results - Labs CBC & Chem 7: 11/14/17 04:40 11/14/17 04:40 Microbiology Results: Microbiology 11/12/17 10:54 Sputum, Expectorated Gram Stain - Final 11/12/17 10:54 Sputum, Expectorated Sputum Culture - Final Normal Respiratory Rosie including Yeast Present 11/12/17 10:35 Urine, Cath Longoria Urine Culture - Final No Growth After 2 Days 11/10/17 22:26 Heel, Right Gram Stain - Final 11/10/17 22:26 Heel, Right Superficial Wound Culture - Preliminary Enterococcus faecalis-sensitive to vancomycin Achromobacter species-sensitive to Zosyn Corynebacterium species Assessment and Plan (1) Acute anemia Current visit: Yes Status: Acute Assessment and Plan: Impression: 1. Acute anemia-hemoglobin was 7.1 at the end of October and she received 1 unit of blood. She received another unit of blood this hospitalization on 11/11/2017 with hemoglobin improving to 8.0 and is thin 0.7 today. Per previous lab at [facility], hemoglobin has been around the 10 range from June to September of this year. 2. Upper GI bleed secondary to esophageal ulcer-EGD 11/12/2017 3. Esophageal cancer with current chemotherapy on hold 4. Sepsis, right lower extremity wound-resolved 5. Diabetic foot ulcer with skin and soft tissue infection-on Zosyn and vancomycin day 5. 6. PAD -On October 31 she underwent right SFA atherectomy and percutaneous angioplasty by Dr. Mcghee at [place]. discussed with Dr. Hernandez and he would prefer that she stay on aspirin and Plavix, but if concerns for acute GI bleed he is okay with discontinuation of Plavix. 7: Acute on chronic kidney injury, baseline creatinine approximately 1.3-was 1.6 -1.7 at the end of October. Creatinine has improved to 1.3 today. 8. Heart failure, preserved ejection fraction\VHD\known PFO 8. Atrial fibrillation-currently sinus rhythm 9. Poor vascular access-PICC line placed 11/10/2017 10. History of polymicrobial, MDR infection 11. COPD with chronic hypoxemia-on 2 L 12. Acute bronchitis-improved 13. Recent UTI-resolved 14. Hypovolemia-resolved 15. Hypernatremia 16. Metabolic acidosis-resolved 17. 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 Syncope prior to admission with generalized weakness 19. Gross Hematuria-resolved 20. Mild acute respiratory failure requiring 3 L of oxygen-normally on 2 L of oxygen daily 21. Possible fluid overload with weight of approximately 4-1/2 kg 22. Hypernatremia present on admission, appears chronic. Plan The patient's hemoglobin has been stable for the past 3 days. Hemoglobin is currently 7.7. She received 1 unit of blood on the evening of admission. EGD revealed an esophageal ulcer. No active bleeding. Aspirin 81 mg started yesterday because of her recent angioplasty of right SFA. Continue Carafate slurry and Protonix orally for esophageal ulcer Blood pressures doing better after restarting amlodipine and carvedilol. Consider restarting lisinopril Acute kidney injury has resolved. I&O is +5 L. We'll restart oral Bumex. We'll check a chest x-ray now, possible IV diuresis. Supplements 3 times a day with meals for hypoalbuminemia. Discussed diabetic foot ulcers with skin and soft tissue infection with Dr. Lopez. He wants to wait and see how she does with Iodosorb treatment and will consider wound exploration later this week. If there are signs of osteo- myelitis during exploration, he would likely check an MRI at that point. Titrate O2 if able. Increase activity as tolerated. Possible transfer to the floor later today if continues to be stable. DVT Prophylaxis: SCD's GI Prophylaxis: Protonix Resuscitation Status: Do Not Resuscitate - Physician Narrative Narrative: Date: 11/14/17 Time: 1036 Hospital Course Summary Disclaimer: The visit summary below is not to be considered part of the above Progress Note. Hospital Course: Impression: 1. Acute anemia 2. Suspected GI bleed 3. Esophageal cancer with current chemotherapy 4. Sepsis, suspected due to right lower extremity wound 5. Chronic right lower extremity wound with exacerbation of infection 6. PAD with recent ballooning and/or stenting of the RLE vascular system 7: Acute on chronic kidney injury, baseline creatinine approximately 1.3 8. Heart failure, preserved ejection fraction\VHD\known PFO 8. Atrial fibrillation 9. Poor vascular access 10. History of polymicrobial, MDR infection 11. COPD with chronic hypoxemia 12. Acute bronchitis 13. Recent UTI 14. Hypovolemia Plan: Admit, inpatient, ICU. Admitting: Dr. Carrillo. PCP: Dr. Rachel Dietz Patient will receive a single unit of blood now. Per blood bank, she usually receives leuko-reduced, irradiated blood. We will obtain additional H&H at around 6 hours from time of admission. I suspect that she is likely more anemic than her labs reveal due to significant hypovolemia. We may need additional transfusion this evening. Protonix drip per protocol. Have a PICC line placed due to poor vascular access. (I discussed this with the patient, risk and benefits discussed, she is in agreement to have PICC line placed) Hold aspirin and Plavix this evening. We will need to obtain records from [facility] regarding specific procedures in the morning. Consult Dr. Lopez in the morning for further evaluation of GI bleeding. Check INR now. We will hold her antihypertensive currently. She is at high risk for hemodynamic instability. Hold diuretics. Continue amiodarone to help with rhythm control. She is not on full strength anticoagulation. Again, we will need to hold her aspirin and Plavix this evening, and further addressed in the morning. She is followed routinely by Dr. John Leyva. Monitor for fluid overload due to known history of heart failure and valvular heart disease. She has recently been on chemotherapy, therefore is immunocompromised. She also has a history of MDR infections. We'll consult Dr. Afua Fernandez in the morning. Start on Zosyn and vancomycin. Blood cultures have been drawn in the emergency department. I will request UA, wound cultures, and sputum cultures. Most recent urine cultures have been reviewed. Check lactate now and recheck per protocol. Continue O2 per home regimen. Restart breathing treatments. DVT prophylaxis: Will hold off for now. Due to very recent vascular stenting, I do not feel comfortable placing SCDs. No blood thinners due to known bleeding. CODE STATUS: I did discuss this with the patient. She remains a DO NOT RESUSCITATE as documented in her past medical history. Extensive time was spent this evening, greater than 90 minutes, and review of the medical record, exam, discussion with care team members, etc. Patient is very ill, will require close monitoring. 11/11/2017 Plan The patient's hemoglobin did improve after 1 unit of blood. She is feeling just a little bit stronger. Sodium has increased overnight. She still has metabolic acidosis with bicarbonate of 18. Lactate has been normal 3. Will change IV fluids to D5 W with 75 mEq of sodium bicarbonate. Continue to monitor renal function closely. Regarding anemia and concern for possible GI bleed, hemoglobin had been in the 10 range until at least September of this year. When she went to [place] for procedure at the end of October, her hemoglobin was 7.1 and she was given 1 unit of blood. Hemoglobin at discharge was 8.0. She was admitted yesterday with heme positive stool but did not have any melena or debbie hematic usually a. She had been on aspirin and Plavix for recent angioplasty of her right lower extremity. Her receptionist/telephone operator prefers that she would stay on aspirin and Plavix, but Plavix could be discontinued if there were significant concerns for GI bleed. Continue on Protonix drip for now.Continue to hold aspirin and Plavix for now. We'll make the patient nothing by mouth now in case she does need EGD regarding anemia and heme positive stool. Dr. Lopez was consulted regarding infected diabetic foot wound in her right lower extremity and regarding possible GI bleed with known esophageal cancer. Dr. Fernandez was consulted regarding the patient's diabetic foot wound. Will discuss patient's anemia, possible GI bleed and esophageal cancer with Dr. Newman. Recheck CBC, renal panel and magnesium tomorrow. Discussed with Dr. Lopez, Dr. Fernandez, and Dr. Hernandez. 11/12/2017 Plan The patient's hemoglobin has been stable for the last 24 hours. Hemoglobin is currently 7.9. She received 1 unit of blood on the evening of admission. She is currently nothing by mouth for EGD around noon today. Blood pressures have been elevated today and she would likely benefit from restarting amlodipine and carvedilol. Lisinopril and Bumex has been on hold for acute kidney injury. Could consider restarting these soon as well. Regarding hematuria, will check urinalysis. Continue incentive spirometer to help with mild acute on chronic hypoxic respiratory failure. Consider DC IV fluids after ETT depending upon results We'll determine whether or not restart aspirin and/or Plavix after EGD Continue Protonix drip for now. Continue off of aspirin and Plavix for now. Continue on vancomycin and Zosyn for infected diabetic foot wound. Recheck CBC, renal panel tomorrow. Repeat chest x-ray tomorrow if not down to baseline oxygen level. Discussed with the patient's nurse and Dr. Lopez. Greater than 40 minutes of critical care time spent seeing and evaluating the patient in determining care plan.
--- NOTE | 2017-11-14 11:20 | XRay Report ---
Indication: hypoxia, rule out pulm edema PROCEDURE: XR chest 1V: Encounter: Initial Comparison: November 11, 2017 Findings: New hazy airspace consolidation in the right lower lobe. Persistent left lower lobe airspace opacity. Small bilateral pleural effusions. No pneumothorax. Heart size and mediastinal contours are stable. Left pacemaker and left PICC line again noted. Pulmonary vascularity is mildly prominent but unchanged. Impression: 1. Developing right lower lobe atelectasis, pneumonia or aspiration. 2. No significant change in mild pulmonary edema. .
[2017-11-14] MEDS: INSULIN ASPART 100unit/ml INJECTION SQ PRN (12:06)
[2017-11-14] MEDS: LR 1,000 ML IV SCH (14:40)
[2017-11-14] MEDS: NS FLUSH BAG 500ml IV PRN (18:12)
--- NOTE | 2017-11-14 18:17 | Progress Note ---
DATE OF SERVICE 11/14/2017 FINDINGS Mrs. Ball was seen earlier today on rounds. She was in the process of being ready to be transferred out to the medical floor. The patient states that her foot has been hurting to some extent but is now finally beginning to improve. She denied any element of abdominal pain. She states that she has not noted any pain with eating. PHYSICAL EXAM VITAL SIGNS: Afebrile, slightly hypertensive. Last recorded vitals include temperature 97.2, pulse 68, respirations 22, blood pressure 179/74. HEENT: Normocephalic. Pupils are equally round and react to light and accommodation. CHEST: Clear to auscultation bilaterally. HEART: Regular rate and rhythm. Normal S1 and S2 without gallops, murmurs or clicks. ABDOMEN: Soft, nontender. No evidence for guarding or rebound. EXTREMITIES: Gauze/dressing remains to be present overlying right foot. The toes which are exposed are stable with the dry eschars being present involving a few of her toes. LABORATORY/PATHOLOGIC REVIEW The patient had a CBC today and her hemoglobin is down slightly at 7.7. White count is stable overall at 8.9. BMP was obtained and found to be stable. Sodium and chloride remain slightly elevated. 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 ASSESSMENT 82-year-old female with multiple medical comorbidities who presented with progressive anemia as a result of a distal esophageal ulceration adjacent to esophageal malignancy. Patient with progressive right diabetic foot ulcer. Status post right lower extremity angioplasty. Overall patient is stable/slowly improving. PLAN I agree with the current management of this patient. Given the fact the patient was stating that her foot was finally beginning to "not hurt/cause pain " I elected not to proceed with an excisional surgical debridement at the bedside today. Will remove dressing tomorrow and likely proceed with additional excisional surgical treatment as indicated. I feel the patient's prognosis is quite poor/guarded. ROSITAD
[2017-11-14] MEDS: LISINOPRIL 2.5 MG TABLET PO SCH (18:49)
[2017-11-14] MEDS: MIRTAZAPINE 15 MG TABLET PO SCH (21:11)
[2017-11-14] MEDS: INSULIN DETEMIR 100unit/ml INJECTION SQ SCH (21:11)
[2017-11-14] MEDS: ATORVASTATIN 40 MG TABLET PO SCH (21:11)
[2017-11-14] MEDS: SALINE FLUSH 10ml SYRINGE IVF PRN (21:11)
[2017-11-15] MEDS: PIPERACILLIN/TAZOBACTAM 3.375 GM in NS 100 ML IV SCH ×5 (00:30→23:30)
[2017-11-15] MEDS: PANTOPRAZOLE 40 MG TABLET PO SCH ×2 (06:54→17:38)
[2017-11-15] MEDS: LEVOTHYROXINE 25 MCG TABLET PO SCH (06:54)
[2017-11-15] MEDS: SUCRALFATE 1gm/10ml ORAL LIQUID PO SCH ×4 (06:56→21:45)
[2017-11-15] MEDS: ALBUTEROL 2.5mg/3ml (0.083%) NEB AEROSOL SCH ×2 (07:35→19:34)
--- NOTE | 2017-11-15 09:25 | Progress Note ---
- Date 11/15/17 Subjective: Angela was seen after breakfast. Her sister aDyanna was also present. Angela denies any pain or discomfort. She is eating well, but would prefer to eat fresh fruits and vegetables -- currently she's on a soft diet b/c of the ulcer. She denies any SOA but has dyspnea when she lies flat on her back. Angela states that her arms/hands are still swollen but her hands are better compared to yesterday. She denies chest pain. She also notes watery stools, but has had these for 2 months. Sometimes, such as with coughing, she has bowel incontinence. They both report that Dr. Lopez was in this morning and is considering working on her foot today. Objective Vital signs: Temperature 97.4 F 11/15/17 08:45 Pulse Rate 60 11/15/17 08:45 Respiratory Rate 16 11/15/17 08:45 Blood Pressure 139/63 11/15/17 08:45 Pulse Oximetry 97 11/15/17 08:45 Height/Weight/BMI: Height 1.63 m Weight 82.5 kg Body Mass Index 29.4 - Constitutional Present: no acute distress, well nourished, well developed - Routine HEENT Exam Head: Present: normocephalic Eye: Present: PERRL. Absent: conjunctival icterus, scleral injection - Routine Respiratory Exam Present: decreased breath sounds, rales (b/l bases) - Routine Cardiovascular Exam Present: RRR, S1, S2 - Routine Abdominal Exam Present: soft, normoactive bowel sounds, non distended, non tender - Routine Extremities Exam Present: edema (both arms, L>R; edema of right leg noted, none to left leg) Comments: heel protector left foot - Routine Skin Exam Present: dry, warm, wounds (dressing to right foot) - Routine Neurological Exam Present: alert, oriented X3, normal speech. Absent: facial asymmetry - Routine Psychiatric Exam Present: normal affect, normal thought process, cooperative Results - Labs CBC & Chem 7: 11/15/17 04:36 11/15/17 04:36 Microbiology Results: Microbiology 11/10/17 22:26 Heel, Right Gram Stain - Final 11/10/17 22:26 Heel, Right Superficial Wound Culture - Final Enterococcus faecalis Achromobacter species Corynebacterium species Coag negative Staphylococcus 11/12/17 10:54 Sputum, Expectorated Gram Stain - Final 11/12/17 10:54 Sputum, Expectorated Sputum Culture - Final Normal Respiratory Rosie including Yeast Present 11/12/17 10:35 Urine, Cath Longoria Urine Culture - Final No Growth After 2 Days Assessment and Plan (1) Acute anemia Current visit: Yes Status: Acute Assessment and Plan: Impression: 1. Acute anemia-hemoglobin was 7.1 at the end of October and she received 1 unit of blood. She received 1 unit PRBCs 11/11/2017 with hemoglobin improving to 8.0. Per previous lab at [facility], hemoglobin has been around the 10 range from June to September of this year. 2. Upper GI bleed secondary to esophageal ulcer-EGD 11/12/2017 3. Esophageal cancer with current chemotherapy on hold 4. Sepsis, right lower extremity wound-resolved 5. Diabetic foot ulcer with skin and soft tissue infection-on Zosyn 11/10-present , and vancomycin 11/10-11/15. 6. PAD -On October 31 she underwent right SFA atherectomy and percutaneous angioplasty by Dr. Mcghee at [place]. discussed with Dr. Hernandez and he would prefer that she stay on aspirin and Plavix, but if concerns for acute GI bleed he is okay with discontinuation of Plavix. 7: Acute on chronic kidney injury, baseline creatinine approximately 1.3-was 1.6 -1.7 at the end of October. Creatinine has improved to baseline. 8. Heart failure, preserved ejection fraction\VHD\known PFO 8. Atrial fibrillation-currently sinus rhythm 9. Poor vascular access-PICC line placed 11/10/2017 10. History of polymicrobial, MDR infection 11. COPD with chronic hypoxemia-on 2 L 12. Acute bronchitis-improved 13. Recent UTI-resolved 14. Hypovolemia-resolved 15. Hypernatremia 16. Metabolic acidosis-resolved 17. 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 Syncope prior to admission with generalized weakness 19. Gross Hematuria-resolved 20. Mild acute respiratory failure requiring 3 L of oxygen-normally on 2 L of oxygen daily 21. Possible fluid overload with weight of approximately 4-1/2 kg 22. Hypernatremia present on admission, appears chronic. Plan Hgb remains stable, 7.9. Continue Carafate and Protonix, soft diet, for known esophageal ulcer. Cont ASA b/c right SFA angioplasty. Bumex was resumed yesterday (resumed BID, at home only takes daily) - hypernatremia remains stable at 152; renal function also stable. K decreased to 3.2 - give KDur [address] Lopez considering debridement. Hx of pacemaker - would need to check compatibility for poss MRI. Discussed with Dr. Fernandez. Continue Zosyn. Venous doppler ordered of left arm. GI Prophylaxis: Protonix Resuscitation Status: Do Not Resuscitate - Physician Narrative Physician: Nikky Braun MD Narrative: Date: 11/15/17 Time: 1624 I have independently evaluated and examined this patient. I reviewed the chart, the patient's history, and the INTERNAL MEDICINE VETERINARY TECHNICIAN/PA's documented findings as above. We discussed and formulated the assessment and plan as above with additions as below: Mrs. Ball was seen with one of her sisters bedside. She expressed concern about her Longoria catheter not working adequately as she feels like she needs to void intermittently. She feels puffy and weight is up or kilogram from admission. +1 edema RUE/RLE, +2 edema LUE, no edema LLE. Respirations nonlabored, diminished airflow, crackles at the left base and 1/3 up field posteriorly Multiple superficial ulcerations right toes, right mid foot dressed Venous Doppler left upper extremity-superficial thrombophlebitis in the cephalic vein left upper extremity, no evidence of DVT. Vancomycin discontinued earlier per Dr. Fernandez based on culture results, diuresis resumed. Continue to monitor renal function closely. Mild persistent hypernatremia noted, continue to monitor. Weight up compared to prior discharges-typically 75-76 kg. Hospital Course Summary Disclaimer: The visit summary below is not to be considered part of the above Progress Note. Hospital Course: Impression: 1. Acute anemia 2. Suspected GI bleed 3. Esophageal cancer with current chemotherapy 4. Sepsis, suspected due to right lower extremity wound 5. Chronic right lower extremity wound with exacerbation of infection 6. PAD with recent ballooning and/or stenting of the RLE vascular system 7: Acute on chronic kidney injury, baseline creatinine approximately 1.3 8. Heart failure, preserved ejection fraction\VHD\known PFO 8. Atrial fibrillation 9. Poor vascular access 10. History of polymicrobial, MDR infection 11. COPD with chronic hypoxemia 12. Acute bronchitis 13. Recent UTI 14. Hypovolemia Plan: Admit, inpatient, ICU. Admitting: Dr. Carrillo. PCP: Dr. Rachel Dietz Patient will receive a single unit of blood now. Per blood bank, she usually receives leuko-reduced, irradiated blood. We will obtain additional H&H at around 6 hours from time of admission. I suspect that she is likely more anemic than her labs reveal due to significant hypovolemia. We may need additional transfusion this evening. Protonix drip per protocol. Have a PICC line placed due to poor vascular access. (I discussed this with the patient, risk and benefits discussed, she is in agreement to have PICC line placed) Hold aspirin and Plavix this evening. We will need to obtain records from [facility] regarding specific procedures in the morning. Consult Dr. Lopez in the morning for further evaluation of GI bleeding. Check INR now. We will hold her antihypertensive currently. She is at high risk for hemodynamic instability. Hold diuretics. Continue amiodarone to help with rhythm control. She is not on full strength anticoagulation. Again, we will need to hold her aspirin and Plavix this evening, and further addressed in the morning. She is followed routinely by Dr. John Leyva. Monitor for fluid overload due to known history of heart failure and valvular heart disease. She has recently been on chemotherapy, therefore is immunocompromised. She also has a history of MDR infections. We'll consult Dr. Afua Fernandez in the morning. Start on Zosyn and vancomycin. Blood cultures have been drawn in the emergency department. I will request UA, wound cultures, and sputum cultures. Most recent urine cultures have been reviewed. Check lactate now and recheck per protocol. Continue O2 per home regimen. Restart breathing treatments. DVT prophylaxis: Will hold off for now. Due to very recent vascular stenting, I do not feel comfortable placing SCDs. No blood thinners due to known bleeding. CODE STATUS: I did discuss this with the patient. She remains a DO NOT RESUSCITATE as documented in her past medical history. Extensive time was spent this evening, greater than 90 minutes, and review of the medical record, exam, discussion with care team members, etc. Patient is very ill, will require close monitoring. 11/11/2017 Plan The patient's hemoglobin did improve after 1 unit of blood. She is feeling just a little bit stronger. Sodium has increased overnight. She still has metabolic acidosis with bicarbonate of 18. Lactate has been normal 3. Will change IV fluids to D5 W with 75 mEq of sodium bicarbonate. Continue to monitor renal function closely. Regarding anemia and concern for possible GI bleed, hemoglobin had been in the 10 range until at least September of this year. When she went to [place] for procedure at the end of October, her hemoglobin was 7.1 and she was given 1 unit of blood. Hemoglobin at discharge was 8.0. She was admitted yesterday with heme positive stool but did not have any melena or debbie hematic usually a. She had been on aspirin and Plavix for recent angioplasty of her right lower extremity. Her eyeglass frame truer prefers that she would stay on aspirin and Plavix, but Plavix could be discontinued if there were significant concerns for GI bleed. Continue on Protonix drip for now.Continue to hold aspirin and Plavix for now. We'll make the patient nothing by mouth now in case she does need EGD regarding anemia and heme positive stool. Dr. Lopez was consulted regarding infected diabetic foot wound in her right lower extremity and regarding possible GI bleed with known esophageal cancer. Dr. Fernandez was consulted regarding the patient's diabetic foot wound. Will discuss patient's anemia, possible GI bleed and esophageal cancer with Dr. Newman. Recheck CBC, renal panel and magnesium tomorrow. Discussed with Dr. Lopez, Dr. Fernandez, and Dr. Hernandez. 11/12/2017 Plan The patient's hemoglobin has been stable for the last 24 hours. Hemoglobin is currently 7.9. She received 1 unit of blood on the evening of admission. She is currently nothing by mouth for EGD around noon today. Blood pressures have been elevated today and she would likely benefit from restarting amlodipine and carvedilol. Lisinopril and Bumex has been on hold for acute kidney injury. Could consider restarting these soon as well. Regarding hematuria, will check urinalysis. Continue incentive spirometer to help with mild acute on chronic hypoxic respiratory failure. Consider DC IV fluids after ETT depending upon results We'll determine whether or not restart aspirin and/or Plavix after EGD Continue Protonix drip for now. Continue off of aspirin and Plavix for now. Continue on vancomycin and Zosyn for infected diabetic foot wound. Recheck CBC, renal panel tomorrow. Repeat chest x-ray tomorrow if not down to baseline oxygen level. Discussed with the patient's nurse and Dr. Lopez. Greater than 40 minutes of critical care time spent seeing and evaluating the patient in determining care plan. 11/13/17 The patient's hemoglobin has been stable for the last 48 hours hours. Hemoglobin is currently 8.1. She received 1 unit of blood on the evening of admission. EGD revealed an esophageal ulcer. No active bleeding. Discussed with Dr. Lopez. Will start aspirin 81 mg daily because of her recent angioplasty of right SFA. Add Carafate slurry. Change Protonix to by mouth. Blood pressures doing better after restarting amlodipine and carvedilol. Acute kidney injury has resolved. I&O is +5 L. We'll restart Bumex. Continue to hold lisinopril at this time. DC IV fluids and encourage by mouth fluid intake. This should help with hypernatremia. Supplements 3 times a day with meals for hypoalbuminemia. Discussed diabetic foot ulcers with skin and soft tissue infection with Dr. Lopez. He wants to wait and see how she does with Iodosorb treatment and will consider wound exploration later this week. If there are signs of osteo- myelitis during exploration, he would likely check an MRI at that point. Discussed skin and soft tissue infection with Dr. Fernandez today as well. Titrate O2 if able. Heel protector to the left foot. 11/14/17 The patient's hemoglobin has been stable for the past 3 days. Hemoglobin is currently 7.7. She received 1 unit of blood on the evening of admission. EGD revealed an esophageal ulcer. No active bleeding. Aspirin 81 mg started yesterday because of her recent angioplasty of right SFA. Continue Carafate slurry and Protonix orally for esophageal ulcer Blood pressures doing better after restarting amlodipine and carvedilol. Consider restarting lisinopril Acute kidney injury has resolved. I&O is +5 L. We'll restart oral Bumex. We'll check a chest x-ray now, possible IV diuresis. Supplements 3 times a day with meals for hypoalbuminemia. Discussed diabetic foot ulcers with skin and soft tissue infection with Dr. Jessica. He wants to wait and see how she does with Iodosorb treatment and will consider wound exploration later this week. If there are signs of osteo- myelitis during exploration, he would likely check an MRI at that point. 11/15/17 Hgb remains stable, 7.9. Continue Carafate and Protonix, soft diet, for known esophageal ulcer. Cont ASA b/c right SFA angioplasty. Bumex was resumed yesterday (resumed BID, at home only takes daily) - hypernatremia remains stable at 152; renal function also stable. K decreased to 3.2 - give KDur [address] Lopez considering debridement. Hx of pacemaker - would need to check compatibility for poss MRI. Discussed with Dr. Fernandez. Continue Zosyn. Venous doppler ordered of left arm.
[2017-11-15] MEDS: BUMETANIDE 1 MG TABLET PO SCH ×2 (09:42→14:29)
[2017-11-15] MEDS: ASPIRIN 81 MG CHEWABLE TABLET PO SCH (09:42)
[2017-11-15] MEDS: LISINOPRIL 2.5 MG TABLET PO SCH (09:42)
[2017-11-15] MEDS: CARVEDILOL 12.5 MG TABLET PO SCH ×2 (09:42→17:38)
--- NOTE | 2017-11-15 09:42 | ID Progress Note ---
Subjective Date: 11/15/17 Subjective: Ms. Ball reports that she feels a little bit better today. She slept well last night. She does report that some of her stools are loose and that sometimes when she coughs she has some fecal incontinence. She does not report several episodes of diarrhea however. There are no BMs charted for the past 2 days. She reports swelling in her arms. She reports that she has difficulty breathing when she is lying flat. She denies fever. Exam Vital Signs: Temperature 97.4 F 11/15/17 08:45 Pulse Rate 60 11/15/17 08:45 Respiratory Rate 16 11/15/17 09:31 Blood Pressure 139/63 11/15/17 08:45 Pulse Oximetry 97 11/15/17 08:45 Height/Weight/BMI: Height 1.63 m Weight 82.5 kg Body Mass Index 29.4 - Constitutional Present: no acute distress, well nourished, well developed Comments: pale - Routine HEENT Exam Head: Present: normocephalic, atraumatic Eye: Present: EOMI, PERRL ENT: Present: mucous membranes moist, oropharynx clear - Routine Neck Exam Present: supple - Routine Respiratory Exam Present: CTA bilaterally Comments: On 2-3L O2 by NC - Routine Cardiovascular Exam Present: RRR - Routine Abdominal Exam Present: soft, normoactive bowel sounds, non distended, non tender - Routine Exam Comments: Longoria in place - Routine Extremities Exam Present: edema (2+ UEs, LUE more swollen than RUE, trace edema LEs). Absent: cyanosis, clubbing - Routine Skin Exam Absent: rash Comments: Wound on plantar aspect R foot, with some necrotic-appearing tissue. Surrounding skin has peeling skin and improving cellulitis. The cellulitis RLE appears to be fading. - Routine Neurological Exam Present: alert, oriented X3, CN II-XII intact, normal speech. Absent: motor deficit - Routine Psychiatric Exam Present: normal affect, normal thought process Results - Labs CBC & Chem 7: 11/15/17 04:36 11/15/17 04:36 Microbiology Results: Microbiology 11/10/17 22:26 Heel, Right Gram Stain - Final 11/10/17 22:26 Heel, Right Superficial Wound Culture - Final Enterococcus faecalis Achromobacter species Corynebacterium species Coag negative Staphylococcus 11/12/17 10:54 Sputum, Expectorated Gram Stain - Final 11/12/17 10:54 Sputum, Expectorated Sputum Culture - Final Normal Respiratory Rosie including Yeast Present 11/12/17 10:35 Urine, Cath Longoria Urine Culture - Final No Growth After 2 Days Impression: Sepsis secondary to skin/soft tissue source Diabetic foot infection R foot with cellulitis PVD s/p R SFA atherectomy/[employer] 10/31/17 Recent syncopal episode anemia, macrocytic s/p EGD 11/12 with ulcer near esophageal mass, biopsy showed adenocarcinoma Diabetic foot wound R 1st MT head, wound culture with MSSA, and Proteus. Bone scan 05/22/17 with abnormal uptake R 1st MT head consistent with osteomyelitis. S/p bone biopsy R 1st MT head 06/05/17 which was negative for osteomyelitis. Wound was noted to be healed on 09/25/17 and her cephalexin was stopped. Recurrent esophageal cancer, on weekly chemotherapy per Dr. Newman. H/o sepsis/septicemia with Pantoea species 2016, s/p Port removal 02/28/17. DM II, with peripheral neuropathy CKD stage III. COPD-chronic oxygen use at 2 liters Chronic atrial fibrillation s/p pacemaker implantation Hypertension GERD Hyperlipidemia Obstructive sleep apnea History of anemia and GI bleed. Allergies to cipro and sulfa (rash). UE Edema Recommendation: I recommend continuing Zosyn. I will discontinue the vancomycin as I don't feel that it is necessary based on her culture results. Her chest x-ray yesterday showed some developing right lower lobe atelectasis versus pneumonia. Suspect some of this might be fluid. Sputum culture did not reveal any pathogens. I will order a Doppler of the left upper extremity to evaluate for DVT since she has her PICC line there and she has more swelling in the left arm than the right. The dressing on her PICC line needs to be changed today because it's coming off. Suspect she might need some debridement of her right foot wound. Unfortunately, we can't order an MRI because of her pacemaker.
[2017-11-15] MEDS: ASCORBIC ACID 500 MG TABLET PO SCH (09:43)
[2017-11-15] MEDS: AMIODARONE 200 MG TABLET PO SCH (09:43)
[2017-11-15] MEDS: FERROUS SULFATE 324 MG TABLET PO SCH (09:43)
[2017-11-15] MEDS: AMLODIPINE 2.5 MG TABLET PO SCH (09:43)
--- NOTE | 2017-11-15 11:42 | Ultrasound Report ---
Indication: LUE edema PROCEDURE: US venous doppler UE LT: Encounter: Initial Comparison: None Technique: Color Doppler duplex and grayscale sonographic imaging of the left upper extremity was performed. FINDINGS: There is no evidence for acute deep venous thrombosis in the left arm. Superficial thrombosis is noted in the cephalic vein distally. PICC line noted in the basilic vein. The left internal jugular, subclavian, axillary and paired brachial veins were evaluated; compression and augmentation were applied where possible. In addition, color and pulsed Doppler demonstrate appropriate spontaneous flow, cardiac pulsatility and variation with respiration. IMPRESSION: No evidence of acute DVT in the left upper extremity. Superficial thrombophlebitis in the cephalic. .
[2017-11-15] MEDS: INSULIN DETEMIR 100unit/ml INJECTION SQ SCH (21:45)
[2017-11-15] MEDS: ATORVASTATIN 40 MG TABLET PO SCH (21:45)
[2017-11-15] MEDS: MIRTAZAPINE 15 MG TABLET PO SCH (21:45)
[2017-11-15] MEDS: INSULIN ASPART 100unit/ml INJECTION SQ PRN (22:37)
[2017-11-16] MEDS: ACETAMINOPHEN 500 MG TABLET PO PRN (04:42)
[2017-11-16] MEDS: LORazepam 0.5 MG TABLET PO PRN (04:43)
[2017-11-16] MEDS: PIPERACILLIN/TAZOBACTAM 3.375 GM in NS 100 ML IV SCH (06:15)
[2017-11-16] MEDS: PANTOPRAZOLE 40 MG TABLET PO SCH ×2 (06:25→17:11)
[2017-11-16] MEDS: LEVOTHYROXINE 25 MCG TABLET PO SCH (06:25)
[2017-11-16] MEDS: SUCRALFATE 1gm/10ml ORAL LIQUID PO SCH ×4 (06:26→21:35)
[2017-11-16] MEDS: ALBUTEROL 2.5mg/3ml (0.083%) NEB AEROSOL SCH ×2 (07:02→18:59)
--- NOTE | 2017-11-16 08:51 | Progress Note ---
- Date 11/16/17 Subjective: Angela was sleeping comfortably and did not easily awaken this morning. Her nurse reports that she's been sleeping well and she hasn't disturbed her yet either. She had a black colored stool followed by a dark red loose stool last evening. They were not described this color earlier in her hospitalization. Longoria was replaced yesterday and nursing staff noted an occlusion with stool in the tip of the old catheter. Objective Vital signs: Temperature 98.4 F 11/16/17 04:00 Pulse Rate 60 11/16/17 08:00 Respiratory Rate 30 H 11/16/17 07:02 Blood Pressure 151/66 H 11/16/17 04:00 Pulse Oximetry 95 11/16/17 07:02 Height/Weight/BMI: Height 1.63 m Weight 82.5 kg Body Mass Index 29.4 - Constitutional Present: no acute distress - Routine HEENT Exam Head: Present: normocephalic - Routine Respiratory Exam Present: CTA bilaterally (anteriorly) - Routine Cardiovascular Exam Present: RRR, S1, S2 - Routine Abdominal Exam Present: soft, normoactive bowel sounds, non distended - Routine Extremities Exam Present: edema (+1 edema RUE/RLE, +2 edema LUE, no edema LLE) - Routine Skin Exam Present: pallor, warm, wounds (dressing to left foot has dried serosanguinous drainage on medial aspect. Scabbed abrasions noted on toes on right foot.) - Routine Psychiatric Exam Present: unable to assess Results - Labs CBC & Chem 7: 11/16/17 14:28 11/16/17 03:48 Microbiology Results: Microbiology 11/10/17 22:26 Heel, Right Gram Stain - Final 11/10/17 22:26 Heel, Right Superficial Wound Culture - Final Enterococcus faecalis Achromobacter species Corynebacterium species Coag negative Staphylococcus 11/12/17 10:54 Sputum, Expectorated Gram Stain - Final 11/12/17 10:54 Sputum, Expectorated Sputum Culture - Final Normal Respiratory Rosie including Yeast Present 11/12/17 10:35 Urine, Cath Longoria Urine Culture - Final No Growth After 2 Days Assessment and Plan (1) Acute anemia Current visit: Yes Status: Acute Assessment and Plan: Impression: 1. Acute anemia-hemoglobin was 7.1 at the end of October and she received 1 unit of blood. She received 1 unit PRBCs 11/11/2017 with hemoglobin improving to 8.0. Per previous lab at [facility], hemoglobin has been around the 10 range from June to September of this year. 2. Upper GI bleed secondary to esophageal ulcer-EGD 11/12/2017 3. Esophageal cancer with current chemotherapy on hold 4. Sepsis, right lower extremity wound-resolved 5. Diabetic foot ulcer with skin and soft tissue infection-on Zosyn 11/10-present , and vancomycin 11/10-11/15. 6. PAD -On October 31 she underwent right SFA atherectomy and percutaneous angioplasty by Dr. Mcghee at [place]. discussed with Dr. Hernandez and he would prefer that she stay on aspirin and Plavix, but if concerns for acute GI bleed he is okay with discontinuation of Plavix. 7: Acute on chronic kidney injury, baseline creatinine approximately 1.3-was 1.6 -1.7 at the end of October. Creatinine has improved to baseline. 8. Heart failure, preserved ejection fraction\VHD\known PFO 8. Atrial fibrillation-currently sinus rhythm 9. Poor vascular access-PICC line placed 11/10/2017 10. History of polymicrobial, MDR infection 11. COPD with chronic hypoxemia-on 2 L 12. Acute bronchitis-improved 13. Recent UTI-resolved 14. Hypovolemia-resolved 15. Hypernatremia 16. Metabolic acidosis-resolved 17. 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 Syncope prior to admission with generalized weakness 19. Gross Hematuria-resolved 20. Mild acute respiratory failure requiring 3 L of oxygen-normally on 2 L of oxygen daily 21. Possible fluid overload with weight of approximately 4-1/2 kg 22. Hypernatremia present on admission, appears chronic. Plan Hgb remains stable, 7.8, though will need close monitoring with reports of melanotic stools last night - could still be residual from known esophageal ulcer. Continue Carafate and Protonix, soft diet. Cont ASA b/c right SFA angioplasty. Hypernatremia remains at 152; renal function also stable. K improved to 3.7. Weight is trending up; she's had positive fluid balances since admit. Poss fluid on CXR vs. pneumonia/atelectasis. Oral Bumex resumed on 11/14 - may need IV diuretic. Longoria replaced on 11/15/17. Continue Zosyn per ID recommendations. GI Prophylaxis: Protonix Resuscitation Status: Do Not Resuscitate - Physician Narrative Physician: Nikky Braun MD Narrative: Date: 11/16/17 Time: 1804 I have independently evaluated and examined this patient. I reviewed the chart, the patient's history, and the PERSONAL INJURY SPECIALIST/PA's documented findings as above. We discussed and formulated the assessment and plan as above with additions as below: Mrs. Ball was seen with her sister at the bedside. She complains of some anxiety, reports that she is sleeping poorly, and that the puffiness in her arms is better today. She's had no further melena/rectal bleeding since stools described above. NAD, fatigued Respirations nonlabored, diminished airflow with shallow inspiratory effort, anterior breath sounds clear +1 edema bilateral upper extremities Repeat hemoglobin this afternoon 8.0, hematocrit unchanged from this morning. Continue to monitor closely-repeat hemoglobin in a.m. unless additional stools warned earlier assessment. Prognosis guarded due to multiple acute/chronic illnesses. Longoria catheter replaced again today after being replaced yesterday as noted above. Bedside debridement of foot wounds yesterday reveals nonviable/necrotic tissue extending to the bone overlying the first metatarsal head. Raises question of osteomyelitis. CRP with a.m. labs. Hospital Course Summary Disclaimer: The visit summary below is not to be considered part of the above Progress Note. Hospital Course: Impression: 1. Acute anemia 2. Suspected GI bleed 3. Esophageal cancer with current chemotherapy 4. Sepsis, suspected due to right lower extremity wound 5. Chronic right lower extremity wound with exacerbation of infection 6. PAD with recent ballooning and/or stenting of the RLE vascular system 7: Acute on chronic kidney injury, baseline creatinine approximately 1.3 8. Heart failure, preserved ejection fraction\VHD\known PFO 8. Atrial fibrillation 9. Poor vascular access 10. History of polymicrobial, MDR infection 11. COPD with chronic hypoxemia 12. Acute bronchitis 13. Recent UTI 14. Hypovolemia Plan: Admit, inpatient, ICU. Admitting: Dr. Carrillo. PCP: Dr. Rachel Dietz Patient will receive a single unit of blood now. Per blood bank, she usually receives leuko-reduced, irradiated blood. We will obtain additional H&H at around 6 hours from time of admission. I suspect that she is likely more anemic than her labs reveal due to significant hypovolemia. We may need additional transfusion this evening. Protonix drip per protocol. Have a PICC line placed due to poor vascular access. (I discussed this with the patient, risk and benefits discussed, she is in agreement to have PICC line placed) Hold aspirin and Plavix this evening. We will need to obtain records from [facility] regarding specific procedures in the morning. Consult Dr. Lopez in the morning for further evaluation of GI bleeding. Check INR now. We will hold her antihypertensive currently. She is at high risk for hemodynamic instability. Hold diuretics. Continue amiodarone to help with rhythm control. She is not on full strength anticoagulation. Again, we will need to hold her aspirin and Plavix this evening, and further addressed in the morning. She is followed routinely by Dr. John Leyva. Monitor for fluid overload due to known history of heart failure and valvular heart disease. She has recently been on chemotherapy, therefore is immunocompromised. She also has a history of MDR infections. We'll consult Dr. Afua Fernandez in the morning. Start on Zosyn and vancomycin. Blood cultures have been drawn in the emergency department. I will request UA, wound cultures, and sputum cultures. Most recent urine cultures have been reviewed. Check lactate now and recheck per protocol. Continue O2 per home regimen. Restart breathing treatments. DVT prophylaxis: Will hold off for now. Due to very recent vascular stenting, I do not feel comfortable placing SCDs. No blood thinners due to known bleeding. CODE STATUS: I did discuss this with the patient. She remains a DO NOT RESUSCITATE as documented in her past medical history. Extensive time was spent this evening, greater than 90 minutes, and review of the medical record, exam, discussion with care team members, etc. Patient is very ill, will require close monitoring. 11/11/2017 Plan The patient's hemoglobin did improve after 1 unit of blood. She is feeling just a little bit stronger. Sodium has increased overnight. She still has metabolic acidosis with bicarbonate of 18. Lactate has been normal 3. Will change IV fluids to D5 W with 75 mEq of sodium bicarbonate. Continue to monitor renal function closely. Regarding anemia and concern for possible GI bleed, hemoglobin had been in the 10 range until at least September of this year. When she went to [facility] for procedure at the end of October, her hemoglobin was 7.1 and she was given 1 unit of blood. Hemoglobin at discharge was 8.0. She was admitted yesterday with heme positive stool but did not have any melena or debbie hematic usually a. She had been on aspirin and Plavix for recent angioplasty of her right lower extremity. Her pencil maker prefers that she would stay on aspirin and Plavix, but Plavix could be discontinued if there were significant concerns for GI bleed. Continue on Protonix drip for now.Continue to hold aspirin and Plavix for now. We'll make the patient nothing by mouth now in case she does need EGD regarding anemia and heme positive stool. Dr. Lopez was consulted regarding infected diabetic foot wound in her right lower extremity and regarding possible GI bleed with known esophageal cancer. Dr. Fernandez was consulted regarding the patient's diabetic foot wound. Will discuss patient's anemia, possible GI bleed and esophageal cancer with Dr. Newman. Recheck CBC, renal panel and magnesium tomorrow. Discussed with Dr. Lopez, Dr. Fernandez, and Dr. Hernandez. 11/12/2017 Plan The patient's hemoglobin has been stable for the last 24 hours. Hemoglobin is currently 7.9. She received 1 unit of blood on the evening of admission. She is currently nothing by mouth for EGD around noon today. Blood pressures have been elevated today and she would likely benefit from restarting amlodipine and carvedilol. Lisinopril and Bumex has been on hold for acute kidney injury. Could consider restarting these soon as well. Regarding hematuria, will check urinalysis. Continue incentive spirometer to help with mild acute on chronic hypoxic respiratory failure. Consider DC IV fluids after ETT depending upon results We'll determine whether or not restart aspirin and/or Plavix after EGD Continue Protonix drip for now. Continue off of aspirin and Plavix for now. Continue on vancomycin and Zosyn for infected diabetic foot wound. Recheck CBC, renal panel tomorrow. Repeat chest x-ray tomorrow if not down to baseline oxygen level. Discussed with the patient's nurse and Dr. Lopez. Greater than 40 minutes of critical care time spent seeing and evaluating the patient in determining care plan. 11/13/17 The patient's hemoglobin has been stable for the last 48 hours hours. Hemoglobin is currently 8.1. She received 1 unit of blood on the evening of admission. EGD revealed an esophageal ulcer. No active bleeding. Discussed with Dr. Lopez. Will start aspirin 81 mg daily because of her recent angioplasty of right SFA. Add Carafate slurry. Change Protonix to by mouth. Blood pressures doing better after restarting amlodipine and carvedilol. Acute kidney injury has resolved. I&O is +5 L. We'll restart Bumex. Continue to hold lisinopril at this time. DC IV fluids and encourage by mouth fluid intake. This should help with hypernatremia. Supplements 3 times a day with meals for hypoalbuminemia. Discussed diabetic foot ulcers with skin and soft tissue infection with Dr. Lopez. He wants to wait and see how she does with Iodosorb treatment and will consider wound exploration later this week. If there are signs of osteo- myelitis during exploration, he would likely check an MRI at that point. Discussed skin and soft tissue infection with Dr. Fernandez today as well. Titrate O2 if able. Heel protector to the left foot. 11/14/17 The patient's hemoglobin has been stable for the past 3 days. Hemoglobin is currently 7.7. She received 1 unit of blood on the evening of admission. EGD revealed an esophageal ulcer. No active bleeding. Aspirin 81 mg started yesterday because of her recent angioplasty of right SFA. Continue Carafate slurry and Protonix orally for esophageal ulcer Blood pressures doing better after restarting amlodipine and carvedilol. Consider restarting lisinopril Acute kidney injury has resolved. I&O is +5 L. We'll restart oral Bumex. We'll check a chest x-ray now, possible IV diuresis. Supplements 3 times a day with meals for hypoalbuminemia. Discussed diabetic foot ulcers with skin and soft tissue infection with Dr. Lopez. He wants to wait and see how she does with Iodosorb treatment and will consider wound exploration later this week. If there are signs of osteo- myelitis during exploration, he would likely check an MRI at that point. 11/15/17 Hgb remains stable, 7.9. Continue Carafate and Protonix, soft diet, for known esophageal ulcer. Cont ASA b/c right SFA angioplasty. Bumex was resumed yesterday (resumed BID, at home only takes daily) - hypernatremia remains stable at 152; renal function also stable. K decreased to 3.2 - give KDur [address] Lopez considering debridement. Hx of pacemaker - would need to check compatibility for poss MRI. Discussed with Dr. Fernandez. Continue Zosyn. Venous doppler ordered of left arm. 11/16/17 Hgb remains stable, 7.8, though will need close monitoring with reports of melanotic stools last night - could still be residual from known esophageal ulcer. Continue Carafate and Protonix, soft diet. Cont ASA b/c right SFA angioplasty. Hypernatremia remains at 152; renal function also stable. K improved to 3.7. Weight is trending up; she's had positive fluid balances since admit. Poss fluid on CXR vs. pneumonia/atelectasis. Oral Bumex resumed on 11/14 - may need IV diuretic. Longoria replaced on 11/15/17. Continue Zosyn per ID recommendations.
[2017-11-16] MEDS: FERROUS SULFATE 324 MG TABLET PO SCH (10:07)
[2017-11-16] MEDS: ASCORBIC ACID 500 MG TABLET PO SCH (10:07)
[2017-11-16] MEDS: CARVEDILOL 12.5 MG TABLET PO SCH ×2 (10:07→17:10)
[2017-11-16] MEDS: BUMETANIDE 1 MG TABLET PO SCH ×2 (10:08→14:09)
[2017-11-16] MEDS: AMLODIPINE 2.5 MG TABLET PO SCH (10:08)
[2017-11-16] MEDS: AMIODARONE 200 MG TABLET PO SCH (10:08)
[2017-11-16] MEDS: ASPIRIN 81 MG CHEWABLE TABLET PO SCH (10:08)
[2017-11-16] MEDS: LISINOPRIL 2.5 MG TABLET PO SCH (10:08)
--- NOTE | 2017-11-16 10:36 | Pharmacy Consult- Renal Dosing ---
Pharamcy Consul-Renal Dosing - Laboratory Information 11/11/17 11/11/17 11/12/17 04:32 14:09 04:05 BUN 60.0 H* 51.0 H* 39.0 H Creatinine 1.6 H D 1.4 H D 1.3 H D 11/13/17 11/13/17 11/14/17 04:19 04:19 04:40 BUN 30.0 H 27.0 H Creatinine 1.2 1.2 1.3 H D 11/15/17 11/16/17 04:36 03:48 BUN 23.0 H 23.0 H Creatinine 1.3 H 1.3 H - Consult Information Renal adjustment of Zosyn SCr= 1.3 mg/dL, Estimated CrCl ~ 35 ml/min Zosyn dose adjusted to 2.25 GM IV Q6H based on current renal function. Pharmacy will monitor and adjust. Thank you, Fanny Velázquez [facility]
--- NOTE | 2017-11-16 13:00 | Progress Note ---
DATE OF SERVICE 11/16/2017 FINDINGS Mrs. Ball was seen this morning on rounds. Nurse reports that she ate 100% of her breakfast. Angela denied any element of abdominal pain. She states she did have some tenderness within her foot following debridement yesterday. Denied significant pain this morning. PHYSICAL EXAM VITAL SIGNS: Afebrile, normotensive. Current vitals include temperature 97.1, pulse 66, respirations 16, blood pressure 166/70, SAO2 92% on 3 L/nasal cannula. HEENT: Normocephalic. Pupils are equally round and react to light and accommodation. ABDOMEN: Soft, completely nontender. No evidence for guarding or rebound. EXTREMITIES: Attention was focused to the right lower extremity. Her dressing was removed. There was some bleeding as a result of the debridement yesterday. The bleeding has now subsided. Wounds are covered with Aquacel involving the medial aspect of the right foot. Aquacel was not removed today. Periwound area does not show any evidence for additional necrosis of the skin. No significant erythema is noted. Foot is warm to the touch. ASSESSMENT 82-year-old female with multiple medical comorbidities, known history for recurrent esophageal cancer, recent upper GI bleed with ulceration adjacent to recurrent esophageal malignancy noted on EGD. Patient with Epps grade 3 right diabetic foot ulcer. Status post excisional surgical debridement. Overall, patient making slow improvement. PLAN Agree with current management of this patient. Would recommend continuing with ongoing treatment for her known esophageal ulcer. Would recommend keeping the patient likely on Carafate and PPI long-term given this degree of ulceration adjacent to her known malignancy. Would recommend if possible avoiding "full anticoagulation." Continue with ongoing antibiotic therapy in regards to probable osteomyelitis involving right foot. Next week if definitive diagnosis is needed at bedside, we may proceed with bone biopsy utilizing rongeurs and submit this for pathologic evaluation. The patient will likely need prolonged intravenous antibiotics prior to her discharge given the recurrence of her obvious osteomyelitis involving the right foot. I am not planning on seeing the patient tomorrow. If surgical care is needed, please not hesitate to contact me. MTDD
[2017-11-16] MEDS: PIPERACILLIN/TAZOBACTAM 2.25 GM in NS 100 ML IV SCH ×2 (13:35→18:22)
--- NOTE | 2017-11-16 13:57 | Progress Note ---
DATE OF SERVICE 11/15/2017 FINDINGS Ms. Ball was seen earlier today on rounds. Her sisters were present. Angela appeared significantly better today and was "smiling." She denied any pain while eating. She states that she did eat lunch well today. Denied right foot pain. PHYSICAL EXAM VITAL SIGNS: Afebrile, normotensive. Current vitals include temperature 97.0, pulse 60, respirations 16, blood pressure 137/66, SAO2 94% on room air. HEENT: Normocephalic. Pupils are equally round and react to light and accommodation. CHEST: Clear to auscultation bilaterally. HEART: Regular rate and rhythm. Normal S1 and S2 without gallops, murmurs or clicks. ABDOMEN: Soft, nontender EXTREMITIES: Attention was focused to the right foot. Dressing was removed. The patient does have necrotic tissue present involving the wounds upon the medial aspect of the right first metatarsal head as well as overlying the plantar aspect of the first metatarsal head. Eschars upon the dorsum of the toes remain to be intact and dry. ASSESSMENT 82-year-old female with recurrent esophageal cancer with associated esophageal ulceration. Recent history for GI bleed. Patient with multiple medical comorbidities. Patient with Epps grade 3 right diabetic foot ulceration. PLAN Excisional surgical treatment at bedside in regards to necrotic wounds involving right foot. Today, utilizing a sharp surgical curette, tissue forceps , and a 15-blade, the wounds upon the medial first metatarsal head as well as overlying the plantar aspect of the first metatarsal head were debrided sharply. The more distal wound overlying the medial aspect of the first metatarsal head extended into the subcutaneous tissues and the subcutaneous tissues that were nonviable/necrotic were debrided sharply until a minimal amount of bleeding began to occur. Unfortunately, the wound overlying the plantar aspect of the first metatarsal head is significantly worse. This required use of tissue forceps and a 15-blade and the wound did extend down to the metatarsal itself. Necrotic subcutaneous tissues, fascia and tendinous structures were excised until one came down to bone. All nonviable tissue was excised until a minimal amount of bleeding began to occur. Will change dressings consisting of Iodosorb to Aquacel Silver and a foam dressing overlying these wounds involving the medial aspect of the right foot. Will continue otherwise with current care. I also reviewed lab work today and her hemoglobin is overall stable at 7.9. Angela does appear to be progressing slowly. MTDD
[2017-11-16] MEDS ORDERED: ALTEPLASE (Cathflo*) 2mg INJECTION IV ONE (16:26)
[2017-11-16] MEDS: INSULIN DETEMIR 100unit/ml INJECTION SQ SCH (21:36)
[2017-11-16] MEDS: MIRTAZAPINE 15 MG TABLET PO SCH (21:36)
[2017-11-16] MEDS: ATORVASTATIN 40 MG TABLET PO SCH (21:37)
[2017-11-17] MEDS: PIPERACILLIN/TAZOBACTAM 2.25 GM in NS 100 ML IV SCH ×4 (01:09→18:51)
[2017-11-17] MEDS ORDERED: ALBUTEROL 2.5mg/3ml (0.083%) NEB AEROSOL PRN ×2 (01:51→01:58)
[2017-11-17] MEDS: SUCRALFATE 1gm/10ml ORAL LIQUID PO SCH ×4 (06:11→20:20)
[2017-11-17] MEDS: PANTOPRAZOLE 40 MG TABLET PO SCH ×2 (06:11→17:39)
[2017-11-17] MEDS: LEVOTHYROXINE 25 MCG TABLET PO SCH (06:11)
[2017-11-17] MEDS: NS FLUSH BAG 500ml IV PRN (06:40)
[2017-11-17] MEDS: ALBUTEROL 2.5mg/3ml (0.083%) NEB AEROSOL SCH ×2 (06:51→19:19)
[2017-11-17] MEDS: AMLODIPINE 2.5 MG TABLET PO SCH (09:12)
[2017-11-17] MEDS: ASPIRIN 81 MG CHEWABLE TABLET PO SCH (09:13)
[2017-11-17] MEDS: CARVEDILOL 12.5 MG TABLET PO SCH ×2 (09:13→17:39)
[2017-11-17] MEDS: LISINOPRIL 2.5 MG TABLET PO SCH (09:13)
[2017-11-17] MEDS: ASCORBIC ACID 500 MG TABLET PO SCH (09:13)
[2017-11-17] MEDS: FERROUS SULFATE 324 MG TABLET PO SCH (09:13)
[2017-11-17] MEDS: BUMETANIDE 1 MG TABLET PO SCH ×2 (09:13→14:08)
[2017-11-17] MEDS: AMIODARONE 200 MG TABLET PO SCH (09:13)
--- NOTE | 2017-11-17 11:51 | XRay Report ---
Indication: CHF, tachypnea PROCEDURE: XR chest 1V: Encounter: Initial Comparison: November 14, 2017 Findings: Worsening bilateral airspace opacity in the perihilar areas of both lungs. Increasing small effusions. No pneumothorax. Heart size and mediastinal contours are grossly stable. Left pacemaker. Left PICC line remains in place. Impression: Worsening pulmonary edema. .
[2017-11-17] MEDS: SALINE FLUSH 10ml SYRINGE IVF PRN ×3 (14:09→18:51)
[2017-11-17] MEDS: 1/2 NS 1,000 ML IV SCH (14:09)
--- NOTE | 2017-11-17 15:21 | Progress Note ---
- Date 11/17/17 Subjective: Mrs. Ball slept poorly overnight and was described by nursing is having increasing difficulty breathing early this morning. Oxygen demand increased slightly this morning and respiratory rate was to 40 earlier. The patient has been very lethargic today and his nap much of the day but was able to confirm that she was more short of breath although she denied wheezing or cough. She denied chest pain and nausea. Her sister indicated that she was able to eat some breakfast but expressed concern about how weak the patient is. Objective Vital signs: Temperature 98.6 F 11/17/17 15:14 Pulse Rate 71 11/17/17 15:14 Respiratory Rate 30 H 11/17/17 15:14 Blood Pressure 135/60 11/17/17 15:14 Pulse Oximetry 95-2 L 11/17/17 15:17 I/O 1390/1000 Cumulative fluid balance positive approximately 7 L during hospital stay Weight up 1.1 kg from yesterday and appears to be 2-4 kg from admission Fatigued-appearing female, NAD but drowsy, weak voice Conjunctiva clear, falls asleep frequently Respirations nonlabored but diminished airflow, anterior lung cardoso clear Regular rhythm, S1-S2 Abdomen soft, nontender, bowel sounds present +1-2 edema hands and arms, +1 edema in the dependent thighs Rhythm: Normal Sinus Rhythm Height/Weight/BMI: Height 1.63 m Weight 80.4 kg Body Mass Index 29.4 Results - Labs CBC & Chem 7: 11/17/17 04:08 11/17/17 04:08 Labs: Accu-Cheks [id number] CRP 25.8 Microbiology Results: Microbiology 11/10/17 22:26 Heel, Right Gram Stain - Final 11/10/17 22:26 Heel, Right Superficial Wound Culture - Final Enterococcus faecalis Achromobacter species Corynebacterium species Coag negative Staphylococcus 11/12/17 10:54 Sputum, Expectorated Gram Stain - Final 11/12/17 10:54 Sputum, Expectorated Sputum Culture - Final Normal Respiratory Rosie including Yeast Present 11/12/17 10:35 Urine, Cath [place] Urine Culture - Final No Growth After 2 Days - Imaging and Cardiology Chest x-ray Status: image reviewed by me (increasing vascular markings/CHF) Assessment and Plan (1) Acute anemia Current visit: Yes Status: Acute Assessment and Plan: Impression: 1. Acute anemia-hemoglobin was 7.1 at the end of October and she received 1 unit of blood. She received 1 unit PRBCs 11/11/2017 with hemoglobin improving to 8.0. Per previous lab at [facility], hemoglobin has been around the 10 range from June to September of this year. 2. Upper GI bleed secondary to esophageal ulcer-EGD 11/12/2017 3. Esophageal cancer with current chemotherapy on hold 4. Sepsis, right lower extremity wound-resolved 5. Diabetic foot ulcer with skin and soft tissue infection-on Zosyn 11/10-present , and vancomycin 11/10-11/15. 6. PAD -On October 31 she underwent right SFA atherectomy and percutaneous angioplasty by Dr. Mcghee at [place]. discussed with Dr. Hernadnez and he would prefer that she stay on aspirin and Plavix, but if concerns for acute GI bleed he is okay with discontinuation of Plavix. 7: Acute on chronic kidney injury, baseline creatinine approximately 1.3-was 1.6 -1.7 at the end of October. Creatinine has improved to baseline. 8. Heart failure, preserved ejection fraction\VHD\known PFO 8. Atrial fibrillation-currently sinus rhythm 9. Poor vascular access-PICC line placed 11/10/2017 10. History of polymicrobial, MDR infection 11. COPD with chronic hypoxemia-on 2 L 12. Acute bronchitis-improved 13. Recent UTI-resolved 14. Hypovolemia-resolved 15. Hypernatremia-present on admission 16. Metabolic acidosis-resolved 17. 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 Syncope prior to admission with generalized weakness 19. Gross Hematuria-resolved 20. Mild acute respiratory failure requiring 3 L of oxygen-normally on 2 L of oxygen daily 21. Possible fluid overload Plan Hgb remains stable, 7.8, no further melanotic stools reported. Continue Carafate and Protonix, soft diet. Cont ASA b/c right SFA angioplasty. Hypernatremia persists, carrier fluid change to half-normal saline. Renal function stable. Fluid balance positive, increasing respiratory effort and chest x-ray with clear evidence of worsening heart failure. Supplemental dose IV Bumex given-assess response; if inadequate diuresis with 1 time dose will schedule IV Bumex q6Hrs. Very debilitated, prognosis guarded all things considered. High-risk illness. Zosyn adjusted for renal function-depth of the wounds right foot worrisome for osteomyelitis. Discussed with nursing and patient's sister. Both provide supplemental history. DVT Prophylaxis: SCD's Resuscitation Status: Do Not Resuscitate - Physician Narrative Narrative: Date: 11/17/17 Time: 1517 Hospital Course Summary Disclaimer: The visit summary below is not to be considered part of the above Progress Note. Hospital Course: Impression: 1. Acute anemia 2. Suspected GI bleed 3. Esophageal cancer with current chemotherapy 4. Sepsis, suspected due to right lower extremity wound 5. Chronic right lower extremity wound with exacerbation of infection 6. PAD with recent ballooning and/or stenting of the RLE vascular system 7: Acute on chronic kidney injury, baseline creatinine approximately 1.3 8. Heart failure, preserved ejection fraction\VHD\known PFO 8. Atrial fibrillation 9. Poor vascular access 10. History of polymicrobial, MDR infection 11. COPD with chronic hypoxemia 12. Acute bronchitis 13. Recent UTI 14. Hypovolemia Plan: Admit, inpatient, ICU. Admitting: Dr. Carrillo. PCP: Dr. Rachel Dietz Patient will receive a single unit of blood now. Per blood bank, she usually receives leuko-reduced, irradiated blood. We will obtain additional H&H at around 6 hours from time of admission. I suspect that she is likely more anemic than her labs reveal due to significant hypovolemia. We may need additional transfusion this evening. Protonix drip per protocol. Have a PICC line placed due to poor vascular access. (I discussed this with the patient, risk and benefits discussed, she is in agreement to have PICC line placed) Hold aspirin and Plavix this evening. We will need to obtain records from [facility] regarding specific procedures in the morning. Consult Dr. Lopez in the morning for further evaluation of GI bleeding. Check INR now. We will hold her antihypertensive currently. She is at high risk for hemodynamic instability. Hold diuretics. Continue amiodarone to help with rhythm control. She is not on full strength anticoagulation. Again, we will need to hold her aspirin and Plavix this evening, and further addressed in the morning. She is followed routinely by Dr. John Leyva. Monitor for fluid overload due to known history of heart failure and valvular heart disease. She has recently been on chemotherapy, therefore is immunocompromised. She also has a history of MDR infections. We'll consult Dr. Afua Fernandez in the morning. Start on Zosyn and vancomycin. Blood cultures have been drawn in the emergency department. I will request UA, wound cultures, and sputum cultures. Most recent urine cultures have been reviewed. Check lactate now and recheck per protocol. Continue O2 per home regimen. Restart breathing treatments. DVT prophylaxis: Will hold off for now. Due to very recent vascular stenting, I do not feel comfortable placing SCDs. No blood thinners due to known bleeding. CODE STATUS: I did discuss this with the patient. She remains a DO NOT RESUSCITATE as documented in her past medical history. Extensive time was spent this evening, greater than 90 minutes, and review of the medical record, exam, discussion with care team members, etc. Patient is very ill, will require close monitoring. 11/11/2017 Plan The patient's hemoglobin did improve after 1 unit of blood. She is feeling just a little bit stronger. Sodium has increased overnight. She still has metabolic acidosis with bicarbonate of 18. Lactate has been normal 3. Will change IV fluids to D5 W with 75 mEq of sodium bicarbonate. Continue to monitor renal function closely. Regarding anemia and concern for possible GI bleed, hemoglobin had been in the 10 range until at least September of this year. When she went to [place] for procedure at the end of October, her hemoglobin was 7.1 and she was given 1 unit of blood. Hemoglobin at discharge was 8.0. She was admitted yesterday with heme positive stool but did not have any melena or debbie hematic usually a. She had been on aspirin and Plavix for recent angioplasty of her right lower extremity. Her field investigator prefers that she would stay on aspirin and Plavix, but Plavix could be discontinued if there were significant concerns for GI bleed. Continue on Protonix drip for now.Continue to hold aspirin and Plavix for now. We'll make the patient nothing by mouth now in case she does need EGD regarding anemia and heme positive stool. Dr. Lopez was consulted regarding infected diabetic foot wound in her right lower extremity and regarding possible GI bleed with known esophageal cancer. Dr. Fernandez was consulted regarding the patient's diabetic foot wound. Will discuss patient's anemia, possible GI bleed and esophageal cancer with Dr. Newman. Recheck CBC, renal panel and magnesium tomorrow. Discussed with Dr. Lopez, Dr. Fernandez, and Dr. Hernandez. 11/12/2017 Plan The patient's hemoglobin has been stable for the last 24 hours. Hemoglobin is currently 7.9. She received 1 unit of blood on the evening of admission. She is currently nothing by mouth for EGD around noon today. Blood pressures have been elevated today and she would likely benefit from restarting amlodipine and carvedilol. Lisinopril and Bumex has been on hold for acute kidney injury. Could consider restarting these soon as well. Regarding hematuria, will check urinalysis. Continue incentive spirometer to help with mild acute on chronic hypoxic respiratory failure. Consider DC IV fluids after ETT depending upon results We'll determine whether or not restart aspirin and/or Plavix after EGD Continue Protonix drip for now. Continue off of aspirin and Plavix for now. Continue on vancomycin and Zosyn for infected diabetic foot wound. Recheck CBC, renal panel tomorrow. Repeat chest x-ray tomorrow if not down to baseline oxygen level. Discussed with the patient's nurse and Dr. Lopez. Greater than 40 minutes of critical care time spent seeing and evaluating the patient in determining care plan. 11/13/17 The patient's hemoglobin has been stable for the last 48 hours hours. Hemoglobin is currently 8.1. She received 1 unit of blood on the evening of admission. EGD revealed an esophageal ulcer. No active bleeding. Discussed with Dr. Lopez. Will start aspirin 81 mg daily because of her recent angioplasty of right SFA. Add Carafate slurry. Change Protonix to by mouth. Blood pressures doing better after restarting amlodipine and carvedilol. Acute kidney injury has resolved. I&O is +5 L. We'll restart Bumex. Continue to hold lisinopril at this time. DC IV fluids and encourage by mouth fluid intake. This should help with hypernatremia. Supplements 3 times a day with meals for hypoalbuminemia. Discussed diabetic foot ulcers with skin and soft tissue infection with Dr. Lopez. He wants to wait and see how she does with Iodosorb treatment and will consider wound exploration later this week. If there are signs of osteo- myelitis during exploration, he would likely check an MRI at that point. Discussed skin and soft tissue infection with Dr. Fernandez today as well. Titrate O2 if able. Heel protector to the left foot. 11/14/17 The patient's hemoglobin has been stable for the past 3 days. Hemoglobin is currently 7.7. She received 1 unit of blood on the evening of admission. EGD revealed an esophageal ulcer. No active bleeding. Aspirin 81 mg started yesterday because of her recent angioplasty of right SFA. Continue Carafate slurry and Protonix orally for esophageal ulcer Blood pressures doing better after restarting amlodipine and carvedilol. Consider restarting lisinopril Acute kidney injury has resolved. I&O is +5 L. We'll restart oral Bumex. We'll check a chest x-ray now, possible IV diuresis. Supplements 3 times a day with meals for hypoalbuminemia. Discussed diabetic foot ulcers with skin and soft tissue infection with Dr. Lopez. He wants to wait and see how she does with Iodosorb treatment and will consider wound exploration later this week. If there are signs of osteo- myelitis during exploration, he would likely check an MRI at that point. 11/15/17 Hgb remains stable, 7.9. Continue Carafate and Protonix, soft diet, for known esophageal ulcer. Cont ASA b/c right SFA angioplasty. Bumex was resumed yesterday (resumed BID, at home only takes daily) - hypernatremia remains stable at 152; renal function also stable. K decreased to 3.2 - give KDur [address] Lopez considering debridement. Hx of pacemaker - would need to check compatibility for poss MRI. Discussed with Dr. Fernandez. Continue Zosyn. Venous doppler ordered of left arm. 11/16/17 Hgb remains stable, 7.8, though will need close monitoring with reports of melanotic stools last night - could still be residual from known esophageal ulcer. Continue Carafate and Protonix, soft diet. Cont ASA b/c right SFA angioplasty. Hypernatremia remains at 152; renal function also stable. K improved to 3.7. Weight is trending up; she's had positive fluid balances since admit. Poss fluid on CXR vs. pneumonia/atelectasis. Oral Bumex resumed on 11/14 - may need IV diuretic. [place] replaced on 11/15/17. Continue Zosyn per ID recommendations. 11/17/17 Hgb remains stable, 7.8, no further melanotic stools reported. Continue Carafate and Protonix, soft diet. Cont ASA b/c right SFA angioplasty. Hypernatremia persists, carrier fluid change to half-normal saline. Renal function stable. Fluid balance positive, increasing respiratory effort and chest x-ray with clear evidence of worsening heart failure. Supplemental dose IV Bumex given-assess response; if inadequate diuresis with 1 time dose will schedule IV Bumex q6Hrs. Very debilitated, prognosis guarded all things considered. Zosyn adjusted for renal function-depth of the wounds right foot worrisome for osteomyelitis.
[2017-11-17] MEDS: INSULIN ASPART 100unit/ml INJECTION SQ PRN (15:22)
[2017-11-17] MEDS: MIRTAZAPINE 15 MG TABLET PO SCH (20:20)
[2017-11-17] MEDS: ATORVASTATIN 40 MG TABLET PO SCH (20:20)
[2017-11-17] MEDS: INSULIN DETEMIR 100unit/ml INJECTION SQ SCH (20:21)
[2017-11-18] MEDS: PIPERACILLIN/TAZOBACTAM 2.25 GM in NS 100 ML IV SCH ×4 (01:05→18:48)
[2017-11-18] MEDS: SUCRALFATE 1gm/10ml ORAL LIQUID PO SCH ×4 (06:34→21:00)
[2017-11-18] MEDS: PANTOPRAZOLE 40 MG TABLET PO SCH ×2 (06:35→17:23)
[2017-11-18] MEDS: LEVOTHYROXINE 25 MCG TABLET PO SCH (06:35)
[2017-11-18] MEDS: ALBUTEROL 2.5mg/3ml (0.083%) NEB AEROSOL SCH ×2 (08:10→19:06)
[2017-11-18] MEDS ORDERED: ALTEPLASE (Cathflo*) 2mg INJECTION IV ONE (09:44)
[2017-11-18] MEDS: ASPIRIN 81 MG CHEWABLE TABLET PO SCH (09:47)
[2017-11-18] MEDS: CARVEDILOL 12.5 MG TABLET PO SCH ×2 (09:48→17:23)
[2017-11-18] MEDS: BUMETANIDE 1 MG TABLET PO SCH ×2 (09:48→14:10)
[2017-11-18] MEDS: AMIODARONE 200 MG TABLET PO SCH (09:48)
[2017-11-18] MEDS: FERROUS SULFATE 324 MG TABLET PO SCH (09:48)
[2017-11-18] MEDS: AMLODIPINE 2.5 MG TABLET PO SCH (09:48)
[2017-11-18] MEDS: ASCORBIC ACID 500 MG TABLET PO SCH (09:49)
[2017-11-18] MEDS: LISINOPRIL 2.5 MG TABLET PO SCH (09:49)
[2017-11-18] MEDS: 1/2 NS 1,000 ML IV SCH (13:25)
--- NOTE | 2017-11-18 14:22 | Progress Note ---
- Date 11/18/17 Subjective: Angela was taking a nap after lunch. She has been more tachypneic and requiring more oxygen to maintain sats. Her sister and the nurse aid report that she has significant difficulty transferring from bed to chair and required max assist with 2 people. She also seemed to have some problems following instructions on what to do with her left foot. She ate at least 50% of her lunch today - much more than she's been eating earlier in hospitalization. Objective Vital signs: Temperature 97.9 F 11/18/17 11:36 Pulse Rate 74 11/18/17 11:36 Respiratory Rate 33 H 11/18/17 11:36 Blood Pressure 143/64 H 11/18/17 11:36 Pulse Oximetry 99 11/18/17 11:36 Rhythm: Normal Sinus Rhythm Height/Weight/BMI: Height 1.63 m Weight 78 kg Body Mass Index 29.4 - Constitutional Present: well nourished, well developed - Routine HEENT Exam Head: Present: normocephalic - Routine Respiratory Exam Present: decreased breath sounds - Routine Cardiovascular Exam Present: RRR, S1, S2 - Routine Abdominal Exam Present: soft, normoactive bowel sounds, non distended, non tender - Routine Extremities Exam Present: edema (B/L upper/lower ext.) - Routine Skin Exam Present: intact, dry, pallor, warm - Routine Neurological Exam Absent: alert - Routine Psychiatric Exam Present: unable to assess Results - Labs CBC & Chem 7: 11/18/17 04:24 11/18/17 04:24 Microbiology Results: Microbiology 11/10/17 22:26 Heel, Right Gram Stain - Final 11/10/17 22:26 Heel, Right Superficial Wound Culture - Final Enterococcus faecalis Achromobacter species Corynebacterium species Coag negative Staphylococcus 11/12/17 10:54 Sputum, Expectorated Gram Stain - Final 11/12/17 10:54 Sputum, Expectorated Sputum Culture - Final Normal Respiratory Rosie including Yeast Present 11/12/17 10:35 Urine, Cath Longoria Urine Culture - Final No Growth After 2 Days Assessment and Plan (1) Acute anemia Current visit: Yes Status: Acute Assessment and Plan: Impression: 1. Acute anemia-hemoglobin was 7.1 at the end of October and she received 1 unit of blood. She received 1 unit PRBCs 11/11/2017 with hemoglobin improving to 8.0. Per previous lab at [facility], hemoglobin has been around the 10 range from June to September of this year. 2. Upper GI bleed secondary to esophageal ulcer-EGD 11/12/2017 3. Esophageal cancer with current chemotherapy on hold 4. Sepsis, right lower extremity wound-resolved 5. Diabetic foot ulcer with skin and soft tissue infection-on Zosyn 11/10-present , and vancomycin 11/10-11/15. 6. PAD -On October 31 she underwent right SFA atherectomy and percutaneous angioplasty by Dr. Mcghee at [place]. discussed with Dr. Hernandez and he would prefer that she stay on aspirin and Plavix, but if concerns for acute GI bleed he is okay with discontinuation of Plavix. 7: Acute on chronic kidney injury, baseline creatinine approximately 1.3-was 1.6 -1.7 at the end of October. Creatinine has improved to baseline. 8. Heart failure, preserved ejection fraction\VHD\known PFO 8. Atrial fibrillation-currently sinus rhythm 9. Poor vascular access-PICC line placed 11/10/2017 10. History of polymicrobial, MDR infection 11. COPD with chronic hypoxemia-on 2 L 12. Acute bronchitis-improved 13. Recent UTI-resolved 14. Hypovolemia-resolved 15. Hypernatremia-present on admission 16. Metabolic acidosis-resolved 17. 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 Syncope prior to admission with generalized weakness 19. Gross Hematuria-resolved 20. Mild acute respiratory failure requiring 3 L of oxygen-normally on 2 L of oxygen daily 21. Possible fluid overload Plan Hgb improved to 8.5. Continue Carafate and Protonix, soft diet. I/O yesterday 950/1725 and weight has decreased to 78 kg. However, BNP 46966 yesterday and yesterday's CXR showed increased pulmonary edema. Oxygen requirements increased, 3.5L. Renal function overall stable with minimal rise in creatinine to 1.4. Hypernatremia more pronounced today at 154. Carrier IVF were changed to 1/2 NS yesterday. Discussed diuresis with Dr. Braun - will stop PO Bumex and start Bumex 1 mg IV QID. Start KDur 20 mEq WS. Continue Zosyn for right foot wound/possible osteomyelitis. WBC 11.1; afebrile. GI Prophylaxis: Protonix Resuscitation Status: Do Not Resuscitate - Physician Narrative Physician: Nikky Braun MD Narrative: Date: 11/18/17 Time: 2129 I have independently evaluated and examined this patient. I reviewed the chart, the patient's history, and the CASH APPLICATIONS ANALYST/PA's documented findings as above. We discussed and formulated the assessment and plan as above with additions as below: Mrs. Ball was seen this afternoon-she was sleeping at the time and was not awakened; her sister was present and reports that she continues to seem weaker and more fatigued. She's been afebrile but is occasionally tachypnea. Oxygen increased to 4 L this evening. Respirations were nonlabored at the time of my assessment, anterior breath sounds clear Regular rhythm. Discussed with Mikki earlier today-agree with need for more aggressive diuresis as described above. Continue to monitor. Prognosis guarded. Hospital Course Summary Disclaimer: The visit summary below is not to be considered part of the above Progress Note. Hospital Course: Impression: 1. Acute anemia 2. Suspected GI bleed 3. Esophageal cancer with current chemotherapy 4. Sepsis, suspected due to right lower extremity wound 5. Chronic right lower extremity wound with exacerbation of infection 6. PAD with recent ballooning and/or stenting of the RLE vascular system 7: Acute on chronic kidney injury, baseline creatinine approximately 1.3 8. Heart failure, preserved ejection fraction\VHD\known PFO 8. Atrial fibrillation 9. Poor vascular access 10. History of polymicrobial, MDR infection 11. COPD with chronic hypoxemia 12. Acute bronchitis 13. Recent UTI 14. Hypovolemia Plan: Admit, inpatient, ICU. Admitting: Dr. Carrillo. PCP: Dr. Rachel Dietz Patient will receive a single unit of blood now. Per blood bank, she usually receives leuko-reduced, irradiated blood. We will obtain additional H&H at around 6 hours from time of admission. I suspect that she is likely more anemic than her labs reveal due to significant hypovolemia. We may need additional transfusion this evening. Protonix drip per protocol. Have a PICC line placed due to poor vascular access. (I discussed this with the patient, risk and benefits discussed, she is in agreement to have PICC line placed) Hold aspirin and Plavix this evening. We will need to obtain records from [facility] regarding specific procedures in the morning. Consult Dr. Lopez in the morning for further evaluation of GI bleeding. Check INR now. We will hold her antihypertensive currently. She is at high risk for hemodynamic instability. Hold diuretics. Continue amiodarone to help with rhythm control. She is not on full strength anticoagulation. Again, we will need to hold her aspirin and Plavix this evening, and further addressed in the morning. She is followed routinely by Dr. John Leyva. Monitor for fluid overload due to known history of heart failure and valvular heart disease. She has recently been on chemotherapy, therefore is immunocompromised. She also has a history of MDR infections. We'll consult Dr. Afua Fernandez in the morning. Start on Zosyn and vancomycin. Blood cultures have been drawn in the emergency department. I will request UA, wound cultures, and sputum cultures. Most recent urine cultures have been reviewed. Check lactate now and recheck per protocol. Continue O2 per home regimen. Restart breathing treatments. DVT prophylaxis: Will hold off for now. Due to very recent vascular stenting, I do not feel comfortable placing SCDs. No blood thinners due to known bleeding. CODE STATUS: I did discuss this with the patient. She remains a DO NOT RESUSCITATE as documented in her past medical history. Extensive time was spent this evening, greater than 90 minutes, and review of the medical record, exam, discussion with care team members, etc. Patient is very ill, will require close monitoring. 11/11/2017 Plan The patient's hemoglobin did improve after 1 unit of blood. She is feeling just a little bit stronger. Sodium has increased overnight. She still has metabolic acidosis with bicarbonate of 18. Lactate has been normal 3. Will change IV fluids to D5 W with 75 mEq of sodium bicarbonate. Continue to monitor renal function closely. Regarding anemia and concern for possible GI bleed, hemoglobin had been in the 10 range until at least September of this year. When she went to [place] for procedure at the end of October, her hemoglobin was 7.1 and she was given 1 unit of blood. Hemoglobin at discharge was 8.0. She was admitted yesterday with heme positive stool but did not have any melena or debbie hematic usually a. She had been on aspirin and Plavix for recent angioplasty of her right lower extremity. Her dynamiter prefers that she would stay on aspirin and Plavix, but Plavix could be discontinued if there were significant concerns for GI bleed. Continue on Protonix drip for now.Continue to hold aspirin and Plavix for now. We'll make the patient nothing by mouth now in case she does need EGD regarding anemia and heme positive stool. Dr. Lopez was consulted regarding infected diabetic foot wound in her right lower extremity and regarding possible GI bleed with known esophageal cancer. Dr. Fernandez was consulted regarding the patient's diabetic foot wound. Will discuss patient's anemia, possible GI bleed and esophageal cancer with Dr. Newman. Recheck CBC, renal panel and magnesium tomorrow. Discussed with Dr. Lopez, Dr. Fernandez, and Dr. Hernandez. 11/12/2017 Plan The patient's hemoglobin has been stable for the last 24 hours. Hemoglobin is currently 7.9. She received 1 unit of blood on the evening of admission. She is currently nothing by mouth for EGD around noon today. Blood pressures have been elevated today and she would likely benefit from restarting amlodipine and carvedilol. Lisinopril and Bumex has been on hold for acute kidney injury. Could consider restarting these soon as well. Regarding hematuria, will check urinalysis. Continue incentive spirometer to help with mild acute on chronic hypoxic respiratory failure. Consider DC IV fluids after ETT depending upon results We'll determine whether or not restart aspirin and/or Plavix after EGD Continue Protonix drip for now. Continue off of aspirin and Plavix for now. Continue on vancomycin and Zosyn for infected diabetic foot wound. Recheck CBC, renal panel tomorrow. Repeat chest x-ray tomorrow if not down to baseline oxygen level. Discussed with the patient's nurse and Dr. Lopez. Greater than 40 minutes of critical care time spent seeing and evaluating the patient in determining care plan. 11/13/17 The patient's hemoglobin has been stable for the last 48 hours hours. Hemoglobin is currently 8.1. She received 1 unit of blood on the evening of admission. EGD revealed an esophageal ulcer. No active bleeding. Discussed with Dr. Lopez. Will start aspirin 81 mg daily because of her recent angioplasty of right SFA. Add Carafate slurry. Change Protonix to by mouth. Blood pressures doing better after restarting amlodipine and carvedilol. Acute kidney injury has resolved. I&O is +5 L. We'll restart Bumex. Continue to hold lisinopril at this time. DC IV fluids and encourage by mouth fluid intake. This should help with hypernatremia. Supplements 3 times a day with meals for hypoalbuminemia. Discussed diabetic foot ulcers with skin and soft tissue infection with Dr. Lopez. He wants to wait and see how she does with Iodosorb treatment and will consider wound exploration later this week. If there are signs of osteo- myelitis during exploration, he would likely check an MRI at that point. Discussed skin and soft tissue infection with Dr. Fernandez today as well. Titrate O2 if able. Heel protector to the left foot. 11/14/17 The patient's hemoglobin has been stable for the past 3 days. Hemoglobin is currently 7.7. She received 1 unit of blood on the evening of admission. EGD revealed an esophageal ulcer. No active bleeding. Aspirin 81 mg started yesterday because of her recent angioplasty of right SFA. Continue Carafate slurry and Protonix orally for esophageal ulcer Blood pressures doing better after restarting amlodipine and carvedilol. Consider restarting lisinopril Acute kidney injury has resolved. I&O is +5 L. We'll restart oral Bumex. We'll check a chest x-ray now, possible IV diuresis. Supplements 3 times a day with meals for hypoalbuminemia. Discussed diabetic foot ulcers with skin and soft tissue infection with Dr. Lopez. He wants to wait and see how she does with Iodosorb treatment and will consider wound exploration later this week. If there are signs of osteo- myelitis during exploration, he would likely check an MRI at that point. 11/15/17 Hgb remains stable, 7.9. Continue Carafate and Protonix, soft diet, for known esophageal ulcer. Cont ASA b/c right SFA angioplasty. Bumex was resumed yesterday (resumed BID, at home only takes daily) - hypernatremia remains stable at 152; renal function also stable. K decreased to 3.2 - give KDur 40 mEq x1. [place]oria replaced on 11/15/17. Dr. Lopez considering debridement. Hx of pacemaker - would need to check compatibility for poss MRI. Discussed with Dr. Fernandez. Continue Zosyn. Venous doppler ordered of left arm. 11/16/17 Hgb remains stable, 7.8, though will need close monitoring with reports of melanotic stools last night - could still be residual from known esophageal ulcer. Continue Carafate and Protonix, soft diet. Cont ASA b/c right SFA angioplasty. Hypernatremia remains at 152; renal function also stable. K improved to 3.7. Weight is trending up; she's had positive fluid balances since admit. Poss fluid on CXR vs. pneumonia/atelectasis. Oral Bumex resumed on 11/14 - may need IV diuretic. Continue Zosyn per ID recommendations. 11/17/17 Hgb remains stable, 7.8, no further melanotic stools reported. Continue Carafate and Protonix, soft diet. Cont ASA b/c right SFA angioplasty. Hypernatremia persists, carrier fluid change to half-normal saline. Renal function stable. Fluid balance positive, increasing respiratory effort and chest x-ray with clear evidence of worsening heart failure. Supplemental dose IV Bumex given-assess response; if inadequate diuresis with 1 time dose will schedule IV Bumex q6Hrs. Very debilitated, prognosis guarded all things considered. Zosyn adjusted for renal function-depth of the wounds right foot worrisome for osteomyelitis. 11/18/17 Hgb improved to 8.5. Continue Carafate and Protonix, soft diet. I/O yesterday 950/1725 and weight has decreased to 78 kg. However, BNP 11856 yesterday and yesterday's CXR showed increased pulmonary edema. Oxygen requirements increased, 3.5L. Renal function overall stable with minimal rise in creatinine to 1.4. Hypernatremia more pronounced today at 154. Carrier IVF were changed to 1/2 NS yesterday. Discussed diuresis with Dr. Braun - will stop PO Bumex and start Bumex 1 mg IV QID. Start KDur 20 mEq WS. Continue Zosyn for right foot wound/possible osteomyelitis. WBC 11.1; afebrile.
[2017-11-18] MEDS: MIRTAZAPINE 15 MG TABLET PO SCH (20:59)
[2017-11-18] MEDS: ATORVASTATIN 40 MG TABLET PO SCH (20:59)
[2017-11-18] MEDS: INSULIN DETEMIR 100unit/ml INJECTION SQ SCH (21:00)
[2017-11-18] MEDS: INSULIN ASPART 100unit/ml INJECTION SQ PRN (21:25)
[2017-11-19] MEDS: PIPERACILLIN/TAZOBACTAM 2.25 GM in NS 100 ML IV SCH ×4 (00:52→18:47)
[2017-11-19] MEDS: SUCRALFATE 1gm/10ml ORAL LIQUID PO SCH ×4 (06:28→20:57)
[2017-11-19] MEDS: LEVOTHYROXINE 25 MCG TABLET PO SCH (06:28)
[2017-11-19] MEDS: PANTOPRAZOLE 40 MG TABLET PO SCH ×2 (06:28→18:09)
--- NOTE | 2017-11-19 08:36 | Progress Note ---
- Date 11/19/17 Subjective: Angela was resting in bed, she was drowsy but was able to answer most questions. RN reported that she slept better last night and overall has been more alert and oriented. Angela denies feeling short of breath and feels like her breathing is improving - however she is tachypneic with audible secretions and has conversational dyspnea. She has a weak cough occasionally. She denies any pain. She asks frequently about her sister. She had 1000 UO overnight per RN report. Oral intake overall poor. Objective Vital signs: Temperature 97.2 F 11/19/17 08:00 Pulse Rate 67 11/19/17 08:00 Respiratory Rate 34 H 11/19/17 08:00 Blood Pressure 189/74 H 11/19/17 08:00 Pulse Oximetry 90 11/19/17 08:00 Rhythm: Normal Sinus Rhythm Height/Weight/BMI: Height 1.63 m Weight 77.8 kg Body Mass Index 29.4 - Constitutional Present: mild distress, well nourished, well developed - Routine HEENT Exam Head: Present: normocephalic Eye: Absent: conjunctival icterus, scleral injection - Routine Respiratory Exam Present: accessory muscle use, decreased breath sounds, respiratory distress ( tachypneic), diminished air movement - Routine Cardiovascular Exam Present: RRR, S1, S2, JVD - Routine Abdominal Exam Present: soft, normoactive bowel sounds, non tender - Routine Extremities Exam Present: edema (RLE - improving; edema to BUE also improving) - Routine Skin Exam Present: pallor, warm - Routine Neurological Exam Present: alert (drowsy). Absent: facial asymmetry - Routine Psychiatric Exam Present: cooperative Results - Labs CBC & Chem 7: 11/19/17 03:59 11/19/17 03:59 Microbiology Results: Microbiology 11/10/17 22:26 Heel, Right Gram Stain - Final 11/10/17 22:26 Heel, Right Superficial Wound Culture - Final Enterococcus faecalis Achromobacter species Corynebacterium species Coag negative Staphylococcus 11/12/17 10:54 Sputum, Expectorated Gram Stain - Final 11/12/17 10:54 Sputum, Expectorated Sputum Culture - Final Normal Respiratory Rosie including Yeast Present 11/12/17 10:35 Urine, Cath Longoria Urine Culture - Final No Growth After 2 Days Assessment and Plan (1) Acute anemia Current visit: Yes Status: Acute Assessment and Plan: Impression: 1. Acute anemia-hemoglobin was 7.1 at the end of October and she received 1 unit of blood. She received 1 unit PRBCs 11/11/2017 with hemoglobin improving to 8.0. Per previous lab at [facility], hemoglobin has been around the 10 range from June to September of this year. 2. Upper GI bleed secondary to esophageal ulcer-EGD 11/12/2017 3. Esophageal cancer with current chemotherapy on hold 4. Sepsis, right lower extremity wound-resolved 5. Diabetic foot ulcer with skin and soft tissue infection-on Zosyn 11/10-present , and vancomycin 11/10-11/15. 6. PAD -On October 31 she underwent right SFA atherectomy and percutaneous angioplasty by Dr. Mcghee at [facility]. discussed with Dr. Hernandez and he would prefer that she stay on aspirin and Plavix, but if concerns for acute GI bleed he is okay with discontinuation of Plavix. 7: Acute on chronic kidney injury, baseline creatinine approximately 1.3-was 1.6 -1.7 at the end of October. Creatinine has improved to baseline. 8. Heart failure, preserved ejection fraction\VHD\known PFO 8. Atrial fibrillation-currently sinus rhythm 9. Poor vascular access-PICC line placed 11/10/2017 10. History of polymicrobial, MDR infection 11. COPD with chronic hypoxemia-on 2 L 12. Acute bronchitis-improved 13. Recent UTI-resolved 14. Hypovolemia-resolved 15. Hypernatremia-present on admission 16. Metabolic acidosis-resolved 17. 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 Syncope prior to admission with generalized weakness 19. Gross Hematuria-resolved 20. Mild acute respiratory failure requiring 3 L of oxygen-normally on 2 L of oxygen daily 21. Possible fluid overload Plan Diuresis improving with 1000 UO reported overnight; weight down slightly. She's on 3.5L of oxygen. Tachypneic with audible secretions - continue Bumex Q6h. Renal function with mild elevation with BUN 24 and creatinine 1.5. Continue 1/2 NS as Na still high at 154. Continue Zosyn for right foot wound/possible osteomyelitis. WBC 11.2; afebrile. Hgb 8.1. Continue Carafate and protonix for esophageal ulcer. Discussed with RN and Dr. Braun. Suspect we may need goals of care conversation with patient and sister. GI Prophylaxis: Protonix Resuscitation Status: Do Not Resuscitate - Physician Narrative Physician: Nikky Braun MD Narrative: Date: 11/19/17 Time: 2029 I have independently evaluated and examined this patient. I reviewed the chart, the patient's history, and the MASTER RIGGER/PA's documented findings as above. We discussed and formulated the assessment and plan as above with additions as below: Mrs. Ball was seen earlier today at which time she was sleeping and did not awaken to voice. Her sister was at bedside indicating increased fatigue overall and that the patient sleeps most of the time. Limited diuresis with IV Bumex overnight, Weight unchanged, does not awaken to exam Very poor air flow, breath sounds heard only in the upper anterior cardoso Regular rhythm Blood gas obtained shortly after exam demonstrating a pH of 7.28 and PCO2 54. BiPAP initiated; sister reminds me that patient previously used CPAP but when patient was started on oxygen at home CPAP was discontinued in place of O2. Reassess ABG in a.m. Overall patient appears to be failing on multiple levels, prognosis is grim. Will discuss end-of-life goals with sisters when both are present. Chest x-ray in a.m. Discussed with nursing and RT. Hospital Course Summary Disclaimer: The visit summary below is not to be considered part of the above Progress Note. Hospital Course: Impression: 1. Acute anemia 2. Suspected GI bleed 3. Esophageal cancer with current chemotherapy 4. Sepsis, suspected due to right lower extremity wound 5. Chronic right lower extremity wound with exacerbation of infection 6. PAD with recent ballooning and/or stenting of the RLE vascular system 7: Acute on chronic kidney injury, baseline creatinine approximately 1.3 8. Heart failure, preserved ejection fraction\VHD\known PFO 8. Atrial fibrillation 9. Poor vascular access 10. History of polymicrobial, MDR infection 11. COPD with chronic hypoxemia 12. Acute bronchitis 13. Recent UTI 14. Hypovolemia Plan: Admit, inpatient, ICU. Admitting: Dr. Carrillo. PCP: Dr. Rachel Dietz Patient will receive a single unit of blood now. Per blood bank, she usually receives leuko-reduced, irradiated blood. We will obtain additional H&H at around 6 hours from time of admission. I suspect that she is likely more anemic than her labs reveal due to significant hypovolemia. We may need additional transfusion this evening. Protonix drip per protocol. Have a PICC line placed due to poor vascular access. (I discussed this with the patient, risk and benefits discussed, she is in agreement to have PICC line placed) Hold aspirin and Plavix this evening. We will need to obtain records from [facility] regarding specific procedures in the morning. Consult Dr. Lopez in the morning for further evaluation of GI bleeding. Check INR now. We will hold her antihypertensive currently. She is at high risk for hemodynamic instability. Hold diuretics. Continue amiodarone to help with rhythm control. She is not on full strength anticoagulation. Again, we will need to hold her aspirin and Plavix this evening, and further addressed in the morning. She is followed routinely by Dr. John Leyva. Monitor for fluid overload due to known history of heart failure and valvular heart disease. She has recently been on chemotherapy, therefore is immunocompromised. She also has a history of MDR infections. We'll consult Dr. Afua Fernandez in the morning. Start on Zosyn and vancomycin. Blood cultures have been drawn in the emergency department. I will request UA, wound cultures, and sputum cultures. Most recent urine cultures have been reviewed. Check lactate now and recheck per protocol. Continue O2 per home regimen. Restart breathing treatments. DVT prophylaxis: Will hold off for now. Due to very recent vascular stenting, I do not feel comfortable placing SCDs. No blood thinners due to known bleeding. CODE STATUS: I did discuss this with the patient. She remains a DO NOT RESUSCITATE as documented in her past medical history. Extensive time was spent this evening, greater than 90 minutes, and review of the medical record, exam, discussion with care team members, etc. Patient is very ill, will require close monitoring. 11/11/2017 Plan The patient's hemoglobin did improve after 1 unit of blood. She is feeling just a little bit stronger. Sodium has increased overnight. She still has metabolic acidosis with bicarbonate of 18. Lactate has been normal 3. Will change IV fluids to D5 W with 75 mEq of sodium bicarbonate. Continue to monitor renal function closely. Regarding anemia and concern for possible GI bleed, hemoglobin had been in the 10 range until at least September of this year. When she went to [facility] for procedure at the end of October, her hemoglobin was 7.1 and she was given 1 unit of blood. Hemoglobin at discharge was 8.0. She was admitted yesterday with heme positive stool but did not have any melena or debbie hematic usually a. She had been on aspirin and Plavix for recent angioplasty of her right lower extremity. Her lumber bearer prefers that she would stay on aspirin and Plavix, but Plavix could be discontinued if there were significant concerns for GI bleed. Continue on Protonix drip for now.Continue to hold aspirin and Plavix for now. We'll make the patient nothing by mouth now in case she does need EGD regarding anemia and heme positive stool. Dr. Lopez was consulted regarding infected diabetic foot wound in her right lower extremity and regarding possible GI bleed with known esophageal cancer. Dr. Fernandez was consulted regarding the patient's diabetic foot wound. Will discuss patient's anemia, possible GI bleed and esophageal cancer with Dr. Newman. Recheck CBC, renal panel and magnesium tomorrow. Discussed with Dr. Lopez, Dr. Fernandez, and Dr. Hernandez. 11/12/2017 Plan The patient's hemoglobin has been stable for the last 24 hours. Hemoglobin is currently 7.9. She received 1 unit of blood on the evening of admission. She is currently nothing by mouth for EGD around noon today. Blood pressures have been elevated today and she would likely benefit from restarting amlodipine and carvedilol. Lisinopril and Bumex has been on hold for acute kidney injury. Could consider restarting these soon as well. Regarding hematuria, will check urinalysis. Continue incentive spirometer to help with mild acute on chronic hypoxic respiratory failure. Consider DC IV fluids after ETT depending upon results We'll determine whether or not restart aspirin and/or Plavix after EGD Continue Protonix drip for now. Continue off of aspirin and Plavix for now. Continue on vancomycin and Zosyn for infected diabetic foot wound. Recheck CBC, renal panel tomorrow. Repeat chest x-ray tomorrow if not down to baseline oxygen level. Discussed with the patient's nurse and Dr. Lopez. Greater than 40 minutes of critical care time spent seeing and evaluating the patient in determining care plan. 11/13/17 The patient's hemoglobin has been stable for the last 48 hours hours. Hemoglobin is currently 8.1. She received 1 unit of blood on the evening of admission. EGD revealed an esophageal ulcer. No active bleeding. Discussed with Dr. Lopez. Will start aspirin 81 mg daily because of her recent angioplasty of right SFA. Add Carafate slurry. Change Protonix to by mouth. Blood pressures doing better after restarting amlodipine and carvedilol. Acute kidney injury has resolved. I&O is +5 L. We'll restart Bumex. Continue to hold lisinopril at this time. DC IV fluids and encourage by mouth fluid intake. This should help with hypernatremia. Supplements 3 times a day with meals for hypoalbuminemia. Discussed diabetic foot ulcers with skin and soft tissue infection with Dr. Lopez. He wants to wait and see how she does with Iodosorb treatment and will consider wound exploration later this week. If there are signs of osteo- myelitis during exploration, he would likely check an MRI at that point. Discussed skin and soft tissue infection with Dr. Fernandez today as well. Titrate O2 if able. Heel protector to the left foot. 11/14/17 The patient's hemoglobin has been stable for the past 3 days. Hemoglobin is currently 7.7. She received 1 unit of blood on the evening of admission. EGD revealed an esophageal ulcer. No active bleeding. Aspirin 81 mg started yesterday because of her recent angioplasty of right SFA. Continue Carafate slurry and Protonix orally for esophageal ulcer Blood pressures doing better after restarting amlodipine and carvedilol. Consider restarting lisinopril Acute kidney injury has resolved. I&O is +5 L. We'll restart oral Bumex. We'll check a chest x-ray now, possible IV diuresis. Supplements 3 times a day with meals for hypoalbuminemia. Discussed diabetic foot ulcers with skin and soft tissue infection with Dr. Lopez. He wants to wait and see how she does with Iodosorb treatment and will consider wound exploration later this week. If there are signs of osteo- myelitis during exploration, he would likely check an MRI at that point. 11/15/17 Hgb remains stable, 7.9. Continue Carafate and Protonix, soft diet, for known esophageal ulcer. Cont ASA b/c right SFA angioplasty. Bumex was resumed yesterday (resumed BID, at home only takes daily) - hypernatremia remains stable at 152; renal function also stable. K decreased to 3.2 - give KDur 40 mEq x1. [place]oria replaced on 11/15/17. Dr. Lopez considering debridement. Hx of pacemaker - would need to check compatibility for poss MRI. Discussed with Dr. Fernandez. Continue Zosyn. Venous doppler ordered of left arm. 11/16/17 Hgb remains stable, 7.8, though will need close monitoring with reports of melanotic stools last night - could still be residual from known esophageal ulcer. Continue Carafate and Protonix, soft diet. Cont ASA b/c right SFA angioplasty. Hypernatremia remains at 152; renal function also stable. K improved to 3.7. Weight is trending up; she's had positive fluid balances since admit. Poss fluid on CXR vs. pneumonia/atelectasis. Oral Bumex resumed on 11/14 - may need IV diuretic. Continue Zosyn per ID recommendations. 11/17/17 Hgb remains stable, 7.8, no further melanotic stools reported. Continue Carafate and Protonix, soft diet. Cont ASA b/c right SFA angioplasty. Hypernatremia persists, carrier fluid change to half-normal saline. Renal function stable. Fluid balance positive, increasing respiratory effort and chest x-ray with clear evidence of worsening heart failure. Supplemental dose IV Bumex given-assess response; if inadequate diuresis with 1 time dose will schedule IV Bumex q6Hrs. Very debilitated, prognosis guarded all things considered. Zosyn adjusted for renal function-depth of the wounds right foot worrisome for osteomyelitis. 11/18/17 Hgb improved to 8.5. Continue Carafate and Protonix, soft diet. I/O yesterday 950/1725 and weight has decreased to 78 kg. However, BNP 51567 yesterday and yesterday's CXR showed increased pulmonary edema. Oxygen requirements increased, 3.5L. Renal function overall stable with minimal rise in creatinine to 1.4. Hypernatremia more pronounced today at 154. Carrier IVF were changed to 1/2 NS yesterday. Discussed diuresis with Dr. Braun - will stop PO Bumex and start Bumex 1 mg IV QID. Start KDur 20 mEq WS. Continue Zosyn for right foot wound/possible osteomyelitis. WBC 11.1; afebrile. 11/19/17 Diuresis improving with 1000 UO reported overnight; weight down slightly. She's on 3.5L of oxygen. Tachypneic with audible secretions - continue Bumex Q6h. Renal function with mild elevation with BUN 24 and creatinine 1.5. Continue 1/2 NS as Na still high at 154. Continue Zosyn for right foot wound/possible osteomyelitis. WBC 11.2; afebrile. Hgb 8.1. Continue Carafate and protonix for esophageal ulcer. Respiratory acidosis present on blood gas; BiPAP initiated.
[2017-11-19] MEDS: ALBUTEROL 2.5mg/3ml (0.083%) NEB AEROSOL SCH ×2 (08:44→19:10)
[2017-11-19] MEDS: LISINOPRIL 2.5 MG TABLET PO SCH (09:27)
[2017-11-19] MEDS: AMLODIPINE 2.5 MG TABLET PO SCH (09:27)
[2017-11-19] MEDS: AMIODARONE 200 MG TABLET PO SCH (09:27)
[2017-11-19] MEDS: ASPIRIN 81 MG CHEWABLE TABLET PO SCH (09:27)
[2017-11-19] MEDS: CARVEDILOL 12.5 MG TABLET PO SCH ×2 (09:27→18:09)
[2017-11-19] MEDS: ASCORBIC ACID 500 MG TABLET PO SCH (09:27)
[2017-11-19] MEDS: FERROUS SULFATE 324 MG TABLET PO SCH (09:27)
--- NOTE | 2017-11-19 09:40 | General Surgery Progress Note ---
Subjective Narrative: She awakens easily this morning, states she feels bad but unable to describe or point to any specific area of pain. Denies foot pain. Course cough. - Vital Signs Last Vital Signs Temp 97.2 F 11/19/17 08:00 Pulse 67 11/19/17 08:00 Resp 36 H 11/19/17 08:52 BP 189/74 H 11/19/17 08:00 Pulse Ox 95 11/19/17 08:52 - Laboratory Result Diagrams: 11/19/17 03:59 11/19/17 03:59 - Abnormal Exam Respiratory: wheezes (and course cough) Abdominal: obese Skin: right foot unwrapped,wound on dorsum of foot has healed. Small wound at medial 1st met head is beefy, washing with NS cleans up old blood , its about 0.2 cm deep. The large wound medially now has soft exudate at the base, the dry leathery tissue is gone. Dorsal aspect of toes with dry scabs on them. 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 .Toes are stable, dry scab on top and will continue Betadine solution/paint BID. The 2 medial wounds are improving, will continue the Aquacel and gauze wraps. MRI has shown osteomyelitis, given her declining health, not sure a formal bone biopsy is warranted. Will continue wound clinic appointments after discharge. Hospital Course Summary Disclaimer: The visit summary below is not to be considered part of the above Progress Note. Hospital Course: Impression: 1. Acute anemia 2. Suspected GI bleed 3. Esophageal cancer with current chemotherapy 4. Sepsis, suspected due to right lower extremity wound 5. Chronic right lower extremity wound with exacerbation of infection 6. PAD with recent ballooning and/or stenting of the RLE vascular system 7: Acute on chronic kidney injury, baseline creatinine approximately 1.3 8. Heart failure, preserved ejection fraction\VHD\known PFO 8. Atrial fibrillation 9. Poor vascular access 10. History of polymicrobial, MDR infection 11. COPD with chronic hypoxemia 12. Acute bronchitis 13. Recent UTI 14. Hypovolemia Plan: Admit, inpatient, ICU. Admitting: Dr. Carrillo. PCP: Dr. Rachel Dietz Patient will receive a single unit of blood now. Per blood bank, she usually receives leuko-reduced, irradiated blood. We will obtain additional H&H at around 6 hours from time of admission. I suspect that she is likely more anemic than her labs reveal due to significant hypovolemia. We may need additional transfusion this evening. Protonix drip per protocol. Have a PICC line placed due to poor vascular access. (I discussed this with the patient, risk and benefits discussed, she is in agreement to have PICC line placed) Hold aspirin and Plavix this evening. We will need to obtain records from [facility] regarding specific procedures in the morning. Consult Dr. Lopez in the morning for further evaluation of GI bleeding. Check INR now. We will hold her antihypertensive currently. She is at high risk for hemodynamic instability. Hold diuretics. Continue amiodarone to help with rhythm control. She is not on full strength anticoagulation. Again, we will need to hold her aspirin and Plavix this evening, and further addressed in the morning. She is followed routinely by Dr. John Leyva. Monitor for fluid overload due to known history of heart failure and valvular heart disease. She has recently been on chemotherapy, therefore is immunocompromised. She also has a history of MDR infections. We'll consult Dr. Afua Fernandez in the morning. Start on Zosyn and vancomycin. Blood cultures have been drawn in the emergency department. I will request UA, wound cultures, and sputum cultures. Most recent urine cultures have been reviewed. Check lactate now and recheck per protocol. Continue O2 per home regimen. Restart breathing treatments. DVT prophylaxis: Will hold off for now. Due to very recent vascular stenting, I do not feel comfortable placing SCDs. No blood thinners due to known bleeding. CODE STATUS: I did discuss this with the patient. She remains a DO NOT RESUSCITATE as documented in her past medical history. Extensive time was spent this evening, greater than 90 minutes, and review of the medical record, exam, discussion with care team members, etc. Patient is very ill, will require close monitoring. 11/11/2017 Plan The patient's hemoglobin did improve after 1 unit of blood. She is feeling just a little bit stronger. Sodium has increased overnight. She still has metabolic acidosis with bicarbonate of 18. Lactate has been normal 3. Will change IV fluids to D5 W with 75 mEq of sodium bicarbonate. Continue to monitor renal function closely. Regarding anemia and concern for possible GI bleed, hemoglobin had been in the 10 range until at least September of this year. When she went to [place] for procedure at the end of October, her hemoglobin was 7.1 and she was given 1 unit of blood. Hemoglobin at discharge was 8.0. She was admitted yesterday with heme positive stool but did not have any melena or debbie hematic usually a. She had been on aspirin and Plavix for recent angioplasty of her right lower extremity. Her animal care technician prefers that she would stay on aspirin and Plavix, but Plavix could be discontinued if there were significant concerns for GI bleed. Continue on Protonix drip for now.Continue to hold aspirin and Plavix for now. We'll make the patient nothing by mouth now in case she does need EGD regarding anemia and heme positive stool. Dr. Lopez was consulted regarding infected diabetic foot wound in her right lower extremity and regarding possible GI bleed with known esophageal cancer. Dr. Fernandez was consulted regarding the patient's diabetic foot wound. Will discuss patient's anemia, possible GI bleed and esophageal cancer with Dr. Newman. Recheck CBC, renal panel and magnesium tomorrow. Discussed with Dr. Lopez, Dr. Fernandez, and Dr. Hernandez. 11/12/2017 Plan The patient's hemoglobin has been stable for the last 24 hours. Hemoglobin is currently 7.9. She received 1 unit of blood on the evening of admission. She is currently nothing by mouth for EGD around noon today. Blood pressures have been elevated today and she would likely benefit from restarting amlodipine and carvedilol. Lisinopril and Bumex has been on hold for acute kidney injury. Could consider restarting these soon as well. Regarding hematuria, will check urinalysis. Continue incentive spirometer to help with mild acute on chronic hypoxic respiratory failure. Consider DC IV fluids after ETT depending upon results We'll determine whether or not restart aspirin and/or Plavix after EGD Continue Protonix drip for now. Continue off of aspirin and Plavix for now. Continue on vancomycin and Zosyn for infected diabetic foot wound. Recheck CBC, renal panel tomorrow. Repeat chest x-ray tomorrow if not down to baseline oxygen level. Discussed with the patient's nurse and Dr. Lopez. Greater than 40 minutes of critical care time spent seeing and evaluating the patient in determining care plan. 11/13/17 The patient's hemoglobin has been stable for the last 48 hours hours. Hemoglobin is currently 8.1. She received 1 unit of blood on the evening of admission. EGD revealed an esophageal ulcer. No active bleeding. Discussed with Dr. Lopez. Will start aspirin 81 mg daily because of her recent angioplasty of right SFA. Add Carafate slurry. Change Protonix to by mouth. Blood pressures doing better after restarting amlodipine and carvedilol. Acute kidney injury has resolved. I&O is +5 L. We'll restart Bumex. Continue to hold lisinopril at this time. DC IV fluids and encourage by mouth fluid intake. This should help with hypernatremia. Supplements 3 times a day with meals for hypoalbuminemia. Discussed diabetic foot ulcers with skin and soft tissue infection with Dr. Lopez. He wants to wait and see how she does with Iodosorb treatment and will consider wound exploration later this week. If there are signs of osteo- myelitis during exploration, he would likely check an MRI at that point. Discussed skin and soft tissue infection with Dr. Fernandez today as well. Titrate O2 if able. Heel protector to the left foot. 11/14/17 The patient's hemoglobin has been stable for the past 3 days. Hemoglobin is currently 7.7. She received 1 unit of blood on the evening of admission. EGD revealed an esophageal ulcer. No active bleeding. Aspirin 81 mg started yesterday because of her recent angioplasty of right SFA. Continue Carafate slurry and Protonix orally for esophageal ulcer Blood pressures doing better after restarting amlodipine and carvedilol. Consider restarting lisinopril Acute kidney injury has resolved. I&O is +5 L. We'll restart oral Bumex. We'll check a chest x-ray now, possible IV diuresis. Supplements 3 times a day with meals for hypoalbuminemia. Discussed diabetic foot ulcers with skin and soft tissue infection with Dr. Lopez. He wants to wait and see how she does with Iodosorb treatment and will consider wound exploration later this week. If there are signs of osteo- myelitis during exploration, he would likely check an MRI at that point. 11/15/17 Hgb remains stable, 7.9. Continue Carafate and Protonix, soft diet, for known esophageal ulcer. Cont ASA b/c right SFA angioplasty. Bumex was resumed yesterday (resumed BID, at home only takes daily) - hypernatremia remains stable at 152; renal function also stable. K decreased to 3.2 - give KDur 40 mEq x1. [place] replaced on 11/15/17. Dr. Lopez considering debridement. Hx of pacemaker - would need to check compatibility for poss MRI. Discussed with Dr. Fernandez. Continue Zosyn. Venous doppler ordered of left arm. 11/16/17 Hgb remains stable, 7.8, though will need close monitoring with reports of melanotic stools last night - could still be residual from known esophageal ulcer. Continue Carafate and Protonix, soft diet. Cont ASA b/c right SFA angioplasty. Hypernatremia remains at 152; renal function also stable. K improved to 3.7. Weight is trending up; she's had positive fluid balances since admit. Poss fluid on CXR vs. pneumonia/atelectasis. Oral Bumex resumed on 11/14 - may need IV diuretic. Continue Zosyn per ID recommendations. 11/17/17 Hgb remains stable, 7.8, no further melanotic stools reported. Continue Carafate and Protonix, soft diet. Cont ASA b/c right SFA angioplasty. Hypernatremia persists, carrier fluid change to half-normal saline. Renal function stable. Fluid balance positive, increasing respiratory effort and chest x-ray with clear evidence of worsening heart failure. Supplemental dose IV Bumex given-assess response; if inadequate diuresis with 1 time dose will schedule IV Bumex q6Hrs. Very debilitated, prognosis guarded all things considered. Zosyn adjusted for renal function-depth of the wounds right foot worrisome for osteomyelitis. 11/18/17 Hgb improved to 8.5. Continue Carafate and Protonix, soft diet. I/O yesterday 950/1725 and weight has decreased to 78 kg. However, BNP 20097 yesterday and yesterday's CXR showed increased pulmonary edema. Oxygen requirements increased, 3.5L. Renal function overall stable with minimal rise in creatinine to 1.4. Hypernatremia more pronounced today at 154. Carrier IVF were changed to 1/2 NS yesterday. Discussed diuresis with Dr. Braun - will stop PO Bumex and start Bumex 1 mg IV QID. Start KDur 20 mEq WS. Continue Zosyn for right foot wound/possible osteomyelitis. WBC 11.1; afebrile. 11/19/17 Diuresis improving with 1000 UO reported overnight; weight down slightly. She's on 3.5L of oxygen. Tachypneic with audible secretions - continue Bumex Q6h. Renal function with mild elevation with BUN 24 and creatinine 1.5. Continue 1/2 NS as Na still high at 154. Continue Zosyn for right foot wound/possible osteomyelitis. WBC 11.2; afebrile. Hgb 8.1. Continue Carafate and protonix for esophageal ulcer.
[2017-11-19] MEDS: 1/2 NS 1,000 ML IV SCH (12:50)
[2017-11-19] MEDS: INSULIN DETEMIR 100unit/ml INJECTION SQ SCH (20:57)
[2017-11-19] MEDS: MIRTAZAPINE 15 MG TABLET PO SCH (20:57)
[2017-11-19] MEDS: ATORVASTATIN 40 MG TABLET PO SCH (20:58)
[2017-11-19] MEDS: SALINE FLUSH 10ml SYRINGE IVF PRN (21:00)
[2017-11-19] MEDS: ACETAMINOPHEN 500 MG TABLET PO PRN (21:17)
[2017-11-19] MEDS: LORazepam 0.5 MG TABLET PO PRN (21:17)
[2017-11-20] MEDS: PIPERACILLIN/TAZOBACTAM 2.25 GM in NS 100 ML IV SCH ×4 (02:30→19:51)
[2017-11-20] MEDS: PANTOPRAZOLE 40 MG TABLET PO SCH ×2 (06:02→17:49)
[2017-11-20] MEDS: LEVOTHYROXINE 25 MCG TABLET PO SCH (06:02)
[2017-11-20] MEDS: SUCRALFATE 1gm/10ml ORAL LIQUID PO SCH ×4 (06:03→20:19)
--- NOTE | 2017-11-20 08:59 | XRay Report ---
Indication: resp failure/CHF PROCEDURE: XR chest 1V: Encounter: Initial Comparison: November 17, 2017 Findings: Pulmonary edema is slightly decreased from the comparison study with a moderate amount remaining. Small bilateral pleural effusions. No pneumothorax. Heart size and mediastinal contours are stable. Left pacemaker and left PICC line. Impression: Slight improvement in moderate pulmonary edema. .
[2017-11-20] MEDS: ALBUTEROL 2.5mg/3ml (0.083%) NEB AEROSOL SCH ×2 (09:21→20:27)
[2017-11-20] MEDS: ASCORBIC ACID 500 MG TABLET PO SCH (10:32)
[2017-11-20] MEDS: FERROUS SULFATE 324 MG TABLET PO SCH (10:32)
[2017-11-20] MEDS: ASPIRIN 81 MG CHEWABLE TABLET PO SCH (10:33)
[2017-11-20] MEDS: CARVEDILOL 12.5 MG TABLET PO SCH ×2 (10:33→17:49)
[2017-11-20] MEDS: AMIODARONE 200 MG TABLET PO SCH (10:33)
[2017-11-20] MEDS: LISINOPRIL 2.5 MG TABLET PO SCH (10:33)
[2017-11-20] MEDS: AMLODIPINE 2.5 MG TABLET PO SCH (10:33)
[2017-11-20] MEDS: POTASSIUM CHLORIDE IV SCH (11:44)
[2017-11-20] MEDS: D5W IV SCH (11:44)
--- NOTE | 2017-11-20 16:17 | Progress Note ---
- Date 11/20/17 Subjective: Angela had just transferred to her chair using a lift. Her sister was there and stated that she ate lunch well - mashed potatoes and a cranberry drink. Angela appeared fatigued, pale, and ill, and was awake but slightly drowsy. She was able to participate in conversation. She states that she feels better today - overall and breathing. She denies any pain. We discussed treatment strategy and she agrees with everything we are doing at this time - she's not ready to give up. Objective Vital signs: Temperature 97.2 F 11/20/17 11:59 Pulse Rate 60 11/20/17 15:18 Respiratory Rate 16 11/20/17 15:18 Blood Pressure 138/59 11/20/17 15:18 Pulse Oximetry 100 11/20/17 15:18 Rhythm: Normal Sinus Rhythm Height/Weight/BMI: Height 1.63 m Weight 77.5 kg Body Mass Index 29.4 - Constitutional Present: well nourished, well developed - Routine HEENT Exam Head: Present: normocephalic Eye: Absent: conjunctival icterus, scleral injection - Routine Respiratory Exam Present: decreased breath sounds Comments: clear breath sounds anterior upper lobes - Routine Cardiovascular Exam Present: RRR, S1, S2 - Routine Abdominal Exam Present: soft, normoactive bowel sounds, non distended, non tender - Routine Extremities Exam Present: edema (improving to RLE; no edema noted to LLE; however both arms are edematous) - Routine Skin Exam Present: pallor, warm, wounds (right foot dressed in gauze; there is bloody drainage noted to medial surface) - Routine Neurological Exam Present: alert, oriented X3, normal speech - Routine Psychiatric Exam Present: normal affect, normal thought process, cooperative Results - Labs CBC & Chem 7: 11/19/17 03:59 11/20/17 09:42 Microbiology Results: Microbiology 11/10/17 22:26 Heel, Right Gram Stain - Final 11/10/17 22:26 Heel, Right Superficial Wound Culture - Final Enterococcus faecalis Achromobacter species Corynebacterium species Coag negative Staphylococcus 11/12/17 10:54 Sputum, Expectorated Gram Stain - Final 11/12/17 10:54 Sputum, Expectorated Sputum Culture - Final Normal Respiratory Roise including Yeast Present 11/12/17 10:35 Urine, Cath Longoria Urine Culture - Final No Growth After 2 Days - ABG Interpretation ABG results: 11/19/17 11/20/17 11:31 07:27 ABG pH 7.282 L 7.309 L ABG pCO2 54 H 53 H ABG pO2 53.0 L 66.2 L ABG HCO3 25.5 26.6 H ABG Total CO2 27.1 H 28.3 H ABG O2 Saturation 82.1 L 90.4 L ABG Base Excess -1.4 0.2 Assessment and Plan (1) Acute anemia Current visit: Yes Status: Acute Assessment and Plan: Impression: 1. Acute anemia-hemoglobin was 7.1 at the end of October and she received 1 unit of blood. She received 1 unit PRBCs 11/11/2017 with hemoglobin improving to 8.0. Per previous lab at [facility], hemoglobin has been around the 10 range from June to September of this year. 2. Upper GI bleed secondary to esophageal ulcer-EGD 11/12/2017 3. Esophageal cancer with current chemotherapy on hold 4. Sepsis, right lower extremity wound-resolved 5. Diabetic foot ulcer with skin and soft tissue infection-on Zosyn 11/10-present , and vancomycin 11/10-11/15. 6. PAD -On October 31 she underwent right SFA atherectomy and percutaneous angioplasty by Dr. Mcghee at [place]. discussed with Dr. Hernandez and he would prefer that she stay on aspirin and Plavix, but if concerns for acute GI bleed he is okay with discontinuation of Plavix. 7: Acute on chronic kidney injury, baseline creatinine approximately 1.3-was 1.6 -1.7 at the end of October. Creatinine has improved to baseline. 8. Heart failure, preserved ejection fraction\VHD\known PFO 8. Atrial fibrillation-currently sinus rhythm 9. Poor vascular access-PICC line placed 11/10/2017 10. History of polymicrobial, MDR infection 11. COPD with chronic hypoxemia-on 2 L 12. Acute bronchitis-improved 13. Recent UTI-resolved 14. Hypovolemia-resolved 15. Hypernatremia-present on admission 16. Metabolic acidosis-resolved 17. 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 Syncope prior to admission with generalized weakness 19. Gross Hematuria-resolved 20. Mild acute respiratory failure requiring 3 L of oxygen-normally on 2 L of oxygen daily 21. Possible fluid overload Plan UO 2L yesterday; today with 1200 so far. Resp status improving - no longer tachypneic and is more alert and conversational. On 3L O2. Weight slowly trending down. Renal status stable with BUN 23 and creatinine 1.5. Continue Bumex 1 mg QID. Na climbing; 155. D5 with K started earlier today - monitor response. K 3.6. Began discussion on expectations with the patient and her sister Aliya - at this time she would like to continue with current treatments, but she understands that if they continue to fail or if she wishes to withdraw care and focus on comfort, that is an option. GI Prophylaxis: Protonix Resuscitation Status: Do Not Resuscitate - Physician Narrative Physician: Nikky Braun MD Narrative: Date: 11/20/17 Time: 1704 I have independently evaluated and examined this patient. I reviewed the chart, the patient's history, and the CHILDCARE AIDE/PA's documented findings as above. We discussed and formulated the assessment and plan as above with additions as below: Mrs. Ball was seen with her sister at bedside. She was off BiPAP at the time but was more alert than yesterday and reported breathing was better. She did not eat breakfast and had not had lunch at the time of my assessment. RT reports that the patient was off BiPAP all night and her sister reports that the patient finds the mask uncomfortable. Patient/sisters are unsure where her home CPAP unit is. NAD, drowsy but responsive today Respirations nonlabored with diminished airflow however improved from yesterday , upper anterior breath sounds are clear and positioning did not permit posterior evaluation Abdomen soft, nontender Repeat blood gas with PCO2 53 Chest x-ray reviewed by myself-persistent heart failure with small effusions- slightly improved from several days ago. Patient encouraged to utilize BiPAP at night and while napping; anticipate need to resume CPAP at a minimum for ventilatory support at night [id number] will look for patient's unit at home. Fluid change made earlier today as noted above. Continue diuresis. Discussed briefly with Dr. Leyva. Hospital Course Summary Disclaimer: The visit summary below is not to be considered part of the above Progress Note. Hospital Course: Impression: 1. Acute anemia 2. Suspected GI bleed 3. Esophageal cancer with current chemotherapy 4. Sepsis, suspected due to right lower extremity wound 5. Chronic right lower extremity wound with exacerbation of infection 6. PAD with recent ballooning and/or stenting of the RLE vascular system 7: Acute on chronic kidney injury, baseline creatinine approximately 1.3 8. Heart failure, preserved ejection fraction\VHD\known PFO 8. Atrial fibrillation 9. Poor vascular access 10. History of polymicrobial, MDR infection 11. COPD with chronic hypoxemia 12. Acute bronchitis 13. Recent UTI 14. Hypovolemia Plan: Admit, inpatient, ICU. Admitting: Dr. Carrillo. PCP: Dr. Rachel Dietz Patient will receive a single unit of blood now. Per blood bank, she usually receives leuko-reduced, irradiated blood. We will obtain additional H&H at around 6 hours from time of admission. I suspect that she is likely more anemic than her labs reveal due to significant hypovolemia. We may need additional transfusion this evening. Protonix drip per protocol. Have a PICC line placed due to poor vascular access. (I discussed this with the patient, risk and benefits discussed, she is in agreement to have PICC line placed) Hold aspirin and Plavix this evening. We will need to obtain records from [facility] regarding specific procedures in the morning. Consult Dr. Lopez in the morning for further evaluation of GI bleeding. Check INR now. We will hold her antihypertensive currently. She is at high risk for hemodynamic instability. Hold diuretics. Continue amiodarone to help with rhythm control. She is not on full strength anticoagulation. Again, we will need to hold her aspirin and Plavix this evening, and further addressed in the morning. She is followed routinely by Dr. John Leyva. Monitor for fluid overload due to known history of heart failure and valvular heart disease. She has recently been on chemotherapy, therefore is immunocompromised. She also has a history of MDR infections. We'll consult Dr. Afua Fernandez in the morning. Start on Zosyn and vancomycin. Blood cultures have been drawn in the emergency department. I will request UA, wound cultures, and sputum cultures. Most recent urine cultures have been reviewed. Check lactate now and recheck per protocol. Continue O2 per home regimen. Restart breathing treatments. DVT prophylaxis: Will hold off for now. Due to very recent vascular stenting, I do not feel comfortable placing SCDs. No blood thinners due to known bleeding. CODE STATUS: I did discuss this with the patient. She remains a DO NOT RESUSCITATE as documented in her past medical history. Extensive time was spent this evening, greater than 90 minutes, and review of the medical record, exam, discussion with care team members, etc. Patient is very ill, will require close monitoring. 11/11/2017 Plan The patient's hemoglobin did improve after 1 unit of blood. She is feeling just a little bit stronger. Sodium has increased overnight. She still has metabolic acidosis with bicarbonate of 18. Lactate has been normal 3. Will change IV fluids to D5 W with 75 mEq of sodium bicarbonate. Continue to monitor renal function closely. Regarding anemia and concern for possible GI bleed, hemoglobin had been in the 10 range until at least September of this year. When she went to [place] for procedure at the end of October, her hemoglobin was 7.1 and she was given 1 unit of blood. Hemoglobin at discharge was 8.0. She was admitted yesterday with heme positive stool but did not have any melena or debbie hematic usually a. She had been on aspirin and Plavix for recent angioplasty of her right lower extremity. Her mover prefers that she would stay on aspirin and Plavix, but Plavix could be discontinued if there were significant concerns for GI bleed. Continue on Protonix drip for now.Continue to hold aspirin and Plavix for now. We'll make the patient nothing by mouth now in case she does need EGD regarding anemia and heme positive stool. Dr. Lopez was consulted regarding infected diabetic foot wound in her right lower extremity and regarding possible GI bleed with known esophageal cancer. Dr. Fernandez was consulted regarding the patient's diabetic foot wound. Will discuss patient's anemia, possible GI bleed and esophageal cancer with Dr. Newman. Recheck CBC, renal panel and magnesium tomorrow. Discussed with Dr. Lopez, Dr. Fernandez, and Dr. Hernandez. 11/12/2017 Plan The patient's hemoglobin has been stable for the last 24 hours. Hemoglobin is currently 7.9. She received 1 unit of blood on the evening of admission. She is currently nothing by mouth for EGD around noon today. Blood pressures have been elevated today and she would likely benefit from restarting amlodipine and carvedilol. Lisinopril and Bumex has been on hold for acute kidney injury. Could consider restarting these soon as well. Regarding hematuria, will check urinalysis. Continue incentive spirometer to help with mild acute on chronic hypoxic respiratory failure. Consider DC IV fluids after ETT depending upon results We'll determine whether or not restart aspirin and/or Plavix after EGD Continue Protonix drip for now. Continue off of aspirin and Plavix for now. Continue on vancomycin and Zosyn for infected diabetic foot wound. Recheck CBC, renal panel tomorrow. Repeat chest x-ray tomorrow if not down to baseline oxygen level. Discussed with the patient's nurse and Dr. Lopez. Greater than 40 minutes of critical care time spent seeing and evaluating the patient in determining care plan. 11/13/17 The patient's hemoglobin has been stable for the last 48 hours hours. Hemoglobin is currently 8.1. She received 1 unit of blood on the evening of admission. EGD revealed an esophageal ulcer. No active bleeding. Discussed with Dr. Lopez. Will start aspirin 81 mg daily because of her recent angioplasty of right SFA. Add Carafate slurry. Change Protonix to by mouth. Blood pressures doing better after restarting amlodipine and carvedilol. Acute kidney injury has resolved. I&O is +5 L. We'll restart Bumex. Continue to hold lisinopril at this time. DC IV fluids and encourage by mouth fluid intake. This should help with hypernatremia. Supplements 3 times a day with meals for hypoalbuminemia. Discussed diabetic foot ulcers with skin and soft tissue infection with Dr. Lopez. He wants to wait and see how she does with Iodosorb treatment and will consider wound exploration later this week. If there are signs of osteo- myelitis during exploration, he would likely check an MRI at that point. Discussed skin and soft tissue infection with Dr. Fernandez today as well. Titrate O2 if able. Heel protector to the left foot. 11/14/17 The patient's hemoglobin has been stable for the past 3 days. Hemoglobin is currently 7.7. She received 1 unit of blood on the evening of admission. EGD revealed an esophageal ulcer. No active bleeding. Aspirin 81 mg started yesterday because of her recent angioplasty of right SFA. Continue Carafate slurry and Protonix orally for esophageal ulcer Blood pressures doing better after restarting amlodipine and carvedilol. Consider restarting lisinopril Acute kidney injury has resolved. I&O is +5 L. We'll restart oral Bumex. We'll check a chest x-ray now, possible IV diuresis. Supplements 3 times a day with meals for hypoalbuminemia. Discussed diabetic foot ulcers with skin and soft tissue infection with Dr. Lopez. He wants to wait and see how she does with Iodosorb treatment and will consider wound exploration later this week. If there are signs of osteo- myelitis during exploration, he would likely check an MRI at that point. 11/15/17 Hgb remains stable, 7.9. Continue Carafate and Protonix, soft diet, for known esophageal ulcer. Cont ASA b/c right SFA angioplasty. Bumex was resumed yesterday (resumed BID, at home only takes daily) - hypernatremia remains stable at 152; renal function also stable. K decreased to 3.2 - give KDur 40 mEq x1. Longoria replaced on 11/15/17. Dr. Lopez considering debridement. Hx of pacemaker - would need to check compatibility for poss MRI. Discussed with Dr. Fernandez. Continue Zosyn. Venous doppler ordered of left arm. 11/16/17 Hgb remains stable, 7.8, though will need close monitoring with reports of melanotic stools last night - could still be residual from known esophageal ulcer. Continue Carafate and Protonix, soft diet. Cont ASA b/c right SFA angioplasty. Hypernatremia remains at 152; renal function also stable. K improved to 3.7. Weight is trending up; she's had positive fluid balances since admit. Poss fluid on CXR vs. pneumonia/atelectasis. Oral Bumex resumed on 11/14 - may need IV diuretic. Continue Zosyn per ID recommendations. 11/17/17 Hgb remains stable, 7.8, no further melanotic stools reported. Continue Carafate and Protonix, soft diet. Cont ASA b/c right SFA angioplasty. Hypernatremia persists, carrier fluid change to half-normal saline. Renal function stable. Fluid balance positive, increasing respiratory effort and chest x-ray with clear evidence of worsening heart failure. Supplemental dose IV Bumex given-assess response; if inadequate diuresis with 1 time dose will schedule IV Bumex q6Hrs. Very debilitated, prognosis guarded all things considered. Zosyn adjusted for renal function-depth of the wounds right foot worrisome for osteomyelitis. 11/18/17 Hgb improved to 8.5. Continue Carafate and Protonix, soft diet. I/O yesterday 950/1725 and weight has decreased to 78 kg. However, BNP [id number] yesterday and yesterday's CXR showed increased pulmonary edema. Oxygen requirements increased, 3.5L. Renal function overall stable with minimal rise in creatinine to 1.4. Hypernatremia more pronounced today at 154. Carrier IVF were changed to 1/2 NS yesterday. Discussed diuresis with Dr. Braun - will stop PO Bumex and start Bumex 1 mg IV QID. Start KDur 20 mEq WS. Continue Zosyn for right foot wound/possible osteomyelitis. WBC 11.1; afebrile. 11/19/17 Diuresis improving with 1000 UO reported overnight; weight down slightly. She's on 3.5L of oxygen. Tachypneic with audible secretions - continue Bumex Q6h. Renal function with mild elevation with BUN 24 and creatinine 1.5. Continue 1/2 NS as Na still high at 154. Continue Zosyn for right foot wound/possible osteomyelitis. WBC 11.2; afebrile. Hgb 8.1. Continue Carafate and protonix for esophageal ulcer. Respiratory acidosis present on blood gas; BiPAP initiated. 11/20/17 UO 2L yesterday; today with 1200 so far. Resp status improving - no longer tachypneic and is more alert and conversational. On 3L O2. Weight slowly trending down. Renal status stable with BUN 23 and creatinine 1.5. Na climbing; 155. D5 with K started earlier today - monitor response. Began discussion on expectations with the patient and her sister Aliya - at this time she would like to continue with current treatments, but she understands that if they continue to fail or if she wishes to withdraw care and focus on comfort, that is an option.
[2017-11-20] MEDS: MIRTAZAPINE 15 MG TABLET PO SCH (20:19)
[2017-11-20] MEDS: ATORVASTATIN 40 MG TABLET PO SCH (20:19)
[2017-11-20] MEDS: INSULIN DETEMIR 100unit/ml INJECTION SQ SCH (20:20)
[2017-11-20] MEDS: INSULIN ASPART 100unit/ml INJECTION SQ PRN (20:55)
[2017-11-21] MEDS: PIPERACILLIN/TAZOBACTAM 2.25 GM in NS 100 ML IV SCH ×4 (00:45→19:06)
[2017-11-21] MEDS: ACETAMINOPHEN 500 MG TABLET PO PRN (00:52)
[2017-11-21] MEDS: LORazepam 0.5 MG TABLET PO PRN (00:52)
[2017-11-21] MEDS: SUCRALFATE 1gm/10ml ORAL LIQUID PO SCH ×4 (06:12→21:09)
[2017-11-21] MEDS: LEVOTHYROXINE 25 MCG TABLET PO SCH (06:12)
[2017-11-21] MEDS: PANTOPRAZOLE 40 MG TABLET PO SCH ×2 (06:12→18:01)
[2017-11-21] MEDS: ALBUTEROL 2.5mg/3ml (0.083%) NEB AEROSOL SCH ×2 (09:02→21:28)
[2017-11-21] MEDS: CARVEDILOL 12.5 MG TABLET PO SCH ×2 (09:52→18:01)
[2017-11-21] MEDS: ASPIRIN 81 MG CHEWABLE TABLET PO SCH (09:52)
[2017-11-21] MEDS: AMLODIPINE 2.5 MG TABLET PO SCH (09:52)
[2017-11-21] MEDS: LISINOPRIL 2.5 MG TABLET PO SCH (09:52)
[2017-11-21] MEDS: ASCORBIC ACID 500 MG TABLET PO SCH (09:53)
[2017-11-21] MEDS: AMIODARONE 200 MG TABLET PO SCH (09:53)
[2017-11-21] MEDS: FERROUS SULFATE 324 MG TABLET PO SCH (09:53)
[2017-11-21] MEDS: D5W IV SCH (10:03)
[2017-11-21] MEDS: POTASSIUM CHLORIDE IV SCH (10:03)
--- NOTE | 2017-11-21 10:10 | Progress Note ---
- Date 11/21/17 Subjective: Angela was sleeping soundly, BiPAP on. She withdrew when I touched her arm ( though my hands were cold). She did not open her eyes or communicate verbally. Per RN, she had a good night. She's had two bouts of diarrhea since yesterday evening. Objective Vital signs: Temperature 98.4 F 11/21/17 08:00 Pulse Rate 86 11/21/17 08:00 Respiratory Rate 20 11/21/17 09:03 Blood Pressure 155/86 H 11/21/17 08:00 Pulse Oximetry 100 11/21/17 09:03 Rhythm: Normal Sinus Rhythm Height/Weight/BMI: Height 1.63 m Weight 77.5 kg Body Mass Index 29.4 - Constitutional Present: well nourished, well developed - Routine HEENT Exam Head: Present: normocephalic Comments: BiPAP in place - Routine Respiratory Exam Present: decreased breath sounds - Routine Cardiovascular Exam Present: RRR, S1, S2 - Routine Abdominal Exam Present: soft, normoactive bowel sounds, distended (mild) - Routine Extremities Exam Present: edema (b/l arms, L>R; trace edema to right leg) Comments: heel protectors b/l dressing to right foot - no drainage bandaid to left pickard - Routine Skin Exam Present: pallor, warm - Routine Neurological Exam Absent: alert - Routine Psychiatric Exam Present: unable to assess Results - Labs CBC & Chem 7: 11/21/17 11:43 11/21/17 05:53 Microbiology Results: Microbiology 11/10/17 22:26 Heel, Right Gram Stain - Final 11/10/17 22:26 Heel, Right Superficial Wound Culture - Final Enterococcus faecalis Achromobacter species Corynebacterium species Coag negative Staphylococcus 11/12/17 10:54 Sputum, Expectorated Gram Stain - Final 11/12/17 10:54 Sputum, Expectorated Sputum Culture - Final Normal Respiratory Rosie including Yeast Present 11/12/17 10:35 Urine, Cath Longoria Urine Culture - Final No Growth After 2 Days - ABG Interpretation ABG results: 11/19/17 11/20/17 11:31 07:27 ABG pH 7.282 L 7.309 L ABG pCO2 54 H 53 H ABG pO2 53.0 L 66.2 L ABG HCO3 25.5 26.6 H ABG Total CO2 27.1 H 28.3 H ABG O2 Saturation 82.1 L 90.4 L ABG Base Excess -1.4 0.2 Assessment and Plan (1) Acute anemia Current visit: Yes Status: Acute Assessment and Plan: Impression: 1. Acute anemia-hemoglobin was 7.1 at the end of October and she received 1 unit of blood. She received 1 unit PRBCs 11/11/2017 with hemoglobin improving to 8.0. Per previous lab at [facility], hemoglobin has been around the 10 range from June to September of this year. 2. Upper GI bleed secondary to esophageal ulcer-EGD 11/12/2017 3. Esophageal cancer with current chemotherapy on hold 4. Sepsis, right lower extremity wound-resolved 5. Diabetic foot ulcer with skin and soft tissue infection-on Zosyn 11/10-present , and vancomycin 11/10-11/15. 6. PAD -On October 31 she underwent right SFA atherectomy and percutaneous angioplasty by Dr. Mcghee at [place]. discussed with Dr. Hernandez and he would prefer that she stay on aspirin and Plavix, but if concerns for acute GI bleed he is okay with discontinuation of Plavix. 7: Acute on chronic kidney injury, baseline creatinine approximately 1.3-was 1.6 -1.7 at the end of October. Creatinine has improved to baseline. 8. Heart failure, preserved ejection fraction\VHD\known PFO 8. Atrial fibrillation-currently sinus rhythm 9. Poor vascular access-PICC line placed 11/10/2017 10. History of polymicrobial, MDR infection 11. COPD with chronic hypoxemia-on 2 L 12. Acute bronchitis-improved 13. Recent UTI-resolved 14. Hypovolemia-resolved 15. Hypernatremia-present on admission 16. Metabolic acidosis-resolved 17. 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 Syncope prior to admission with generalized weakness 19. Gross Hematuria-resolved 20. Mild acute respiratory failure requiring 3 L of oxygen-normally on 2 L of oxygen daily 21. Possible fluid overload 22. Hypoalbuminemia/malnutrition Plan Na improved slightly to 152 on D5W with KCl. Renal function stable, BUN 23, creatinine 1.3. O2 demands improving as of last evening. Continue QID Bumex. Diarrhea x2 since last evening: has been on Zosyn since admission; clinically treating for osteomyelitis. Abdominal distention also noted today. If diarrhea continues, will check C. diff. Check CBC to f/u on anemia and leukocytosis. Left PICC line not working properly - d/w analysis evaluator - Hao Slater to withdraw PICC 3 cm, where it will still be in the subclavian. Ultimately we may need a new PICC line if pt/family wish to proceed with current cares. Consult dietary d/t malnutrition. ? parenteral nutrition. Continue to have goals of care conversation with pt/sisters. GI Prophylaxis: Protonix Resuscitation Status: Do Not Resuscitate - Physician Narrative Physician: Nikky Braun MD Narrative: Date: 11/21/17 Time: 2100 I have independently evaluated and examined this patient. I reviewed the chart, the patient's history, and the HOME CARE PROVIDER/PA's documented findings as above. We discussed and formulated the assessment and plan as above with additions as below: Mrs. Ball was sitting in a chair when seen; neither of her sisters was present. The patient was drowsy but was awake and indicated that her breathing was a little better and that she had minor pain in her feet. Nursing reports that she's eaten small amounts. Patient denies nausea but reports having a loose stool earlier. Patient reports sisters have not been able to locate home CPAP unit. NAD, drowsy, respirations nonlabored with diminished air flow throughout but breath sounds are clear Regular rhythm, sinus rhythm on telemetry with occasional PVCs. Abdomen soft, diminished bowel sounds Fluid balance -1 L yesterday, continue IV diuretics. Fluid intake includes D5 infusion being used to lower serum sodium level. Lactobacillus initiated as loose or watery stools reported over the past 2 days. ProBNP in a.m. Hospital Course Summary Disclaimer: The visit summary below is not to be considered part of the above Progress Note. Hospital Course: Impression: 1. Acute anemia 2. Suspected GI bleed 3. Esophageal cancer with current chemotherapy 4. Sepsis, suspected due to right lower extremity wound 5. Chronic right lower extremity wound with exacerbation of infection 6. PAD with recent ballooning and/or stenting of the RLE vascular system 7: Acute on chronic kidney injury, baseline creatinine approximately 1.3 8. Heart failure, preserved ejection fraction\VHD\known PFO 8. Atrial fibrillation 9. Poor vascular access 10. History of polymicrobial, MDR infection 11. COPD with chronic hypoxemia 12. Acute bronchitis 13. Recent UTI 14. Hypovolemia Plan: Admit, inpatient, ICU. Admitting: Dr. Carrillo. PCP: Dr. Rachel Dietz Patient will receive a single unit of blood now. Per blood bank, she usually receives leuko-reduced, irradiated blood. We will obtain additional H&H at around 6 hours from time of admission. I suspect that she is likely more anemic than her labs reveal due to significant hypovolemia. We may need additional transfusion this evening. Protonix drip per protocol. Have a PICC line placed due to poor vascular access. (I discussed this with the patient, risk and benefits discussed, she is in agreement to have PICC line placed) Hold aspirin and Plavix this evening. We will need to obtain records from [facility] regarding specific procedures in the morning. Consult Dr. Lopez in the morning for further evaluation of GI bleeding. Check INR now. We will hold her antihypertensive currently. She is at high risk for hemodynamic instability. Hold diuretics. Continue amiodarone to help with rhythm control. She is not on full strength anticoagulation. Again, we will need to hold her aspirin and Plavix this evening, and further addressed in the morning. She is followed routinely by Dr. John Leyva. Monitor for fluid overload due to known history of heart failure and valvular heart disease. She has recently been on chemotherapy, therefore is immunocompromised. She also has a history of MDR infections. We'll consult Dr. Afua Fernandez in the morning. Start on Zosyn and vancomycin. Blood cultures have been drawn in the emergency department. I will request UA, wound cultures, and sputum cultures. Most recent urine cultures have been reviewed. Check lactate now and recheck per protocol. Continue O2 per home regimen. Restart breathing treatments. DVT prophylaxis: Will hold off for now. Due to very recent vascular stenting, I do not feel comfortable placing SCDs. No blood thinners due to known bleeding. CODE STATUS: I did discuss this with the patient. She remains a DO NOT RESUSCITATE as documented in her past medical history. Extensive time was spent this evening, greater than 90 minutes, and review of the medical record, exam, discussion with care team members, etc. Patient is very ill, will require close monitoring. 11/11/2017 Plan The patient's hemoglobin did improve after 1 unit of blood. She is feeling just a little bit stronger. Sodium has increased overnight. She still has metabolic acidosis with bicarbonate of 18. Lactate has been normal 3. Will change IV fluids to D5 W with 75 mEq of sodium bicarbonate. Continue to monitor renal function closely. Regarding anemia and concern for possible GI bleed, hemoglobin had been in the 10 range until at least September of this year. When she went to [facility] for procedure at the end of October, her hemoglobin was 7.1 and she was given 1 unit of blood. Hemoglobin at discharge was 8.0. She was admitted yesterday with heme positive stool but did not have any melena or debbie hematic usually a. She had been on aspirin and Plavix for recent angioplasty of her right lower extremity. 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 Continue on Protonix drip for now.Continue to hold aspirin and Plavix for now. We'll make the patient nothing by mouth now in case she does need EGD regarding anemia and heme positive stool. Dr. Lopez was consulted regarding infected diabetic foot wound in her right lower extremity and regarding possible GI bleed with known esophageal cancer. Dr. Fernandez was consulted regarding the patient's diabetic foot wound. Will discuss patient's anemia, possible GI bleed and esophageal cancer with Dr. Newman. Recheck CBC, renal panel and magnesium tomorrow. Discussed with Dr. Lopez, Dr. Fernandez, and Dr. Hernandez. 11/12/2017 Plan The patient's hemoglobin has been stable for the last 24 hours. Hemoglobin is currently 7.9. She received 1 unit of blood on the evening of admission. She is currently nothing by mouth for EGD around noon today. Blood pressures have been elevated today and she would likely benefit from restarting amlodipine and carvedilol. Lisinopril and Bumex has been on hold for acute kidney injury. Could consider restarting these soon as well. Regarding hematuria, will check urinalysis. Continue incentive spirometer to help with mild acute on chronic hypoxic respiratory failure. Consider DC IV fluids after ETT depending upon results We'll determine whether or not restart aspirin and/or Plavix after EGD Continue Protonix drip for now. Continue off of aspirin and Plavix for now. Continue on vancomycin and Zosyn for infected diabetic foot wound. Recheck CBC, renal panel tomorrow. Repeat chest x-ray tomorrow if not down to baseline oxygen level. Discussed with the patient's nurse and Dr. Lopez. Greater than 40 minutes of critical care time spent seeing and evaluating the patient in determining care plan. 11/13/17 The patient's hemoglobin has been stable for the last 48 hours hours. Hemoglobin is currently 8.1. She received 1 unit of blood on the evening of admission. EGD revealed an esophageal ulcer. No active bleeding. Discussed with Dr. Lopez. Will start aspirin 81 mg daily because of her recent angioplasty of right SFA. Add Carafate slurry. Change Protonix to by mouth. Blood pressures doing better after restarting amlodipine and carvedilol. Acute kidney injury has resolved. I&O is +5 L. We'll restart Bumex. Continue to hold lisinopril at this time. DC IV fluids and encourage by mouth fluid intake. This should help with hypernatremia. Supplements 3 times a day with meals for hypoalbuminemia. Discussed diabetic foot ulcers with skin and soft tissue infection with Dr. Lopez. He wants to wait and see how she does with Iodosorb treatment and will consider wound exploration later this week. If there are signs of osteo- myelitis during exploration, he would likely check an MRI at that point. Discussed skin and soft tissue infection with Dr. Fernandez today as well. Titrate O2 if able. Heel protector to the left foot. 11/14/17 The patient's hemoglobin has been stable for the past 3 days. Hemoglobin is currently 7.7. She received 1 unit of blood on the evening of admission. EGD revealed an esophageal ulcer. No active bleeding. Aspirin 81 mg started yesterday because of her recent angioplasty of right SFA. Continue Carafate slurry and Protonix orally for esophageal ulcer Blood pressures doing better after restarting amlodipine and carvedilol. Consider restarting lisinopril Acute kidney injury has resolved. I&O is +5 L. We'll restart oral Bumex. We'll check a chest x-ray now, possible IV diuresis. Supplements 3 times a day with meals for hypoalbuminemia. Discussed diabetic foot ulcers with skin and soft tissue infection with Dr. Lopez. He wants to wait and see how she does with Iodosorb treatment and will consider wound exploration later this week. If there are signs of osteo- myelitis during exploration, he would likely check an MRI at that point. 11/15/17 Hgb remains stable, 7.9. Continue Carafate and Protonix, soft diet, for known esophageal ulcer. Cont ASA b/c right SFA angioplasty. Bumex was resumed yesterday (resumed BID, at home only takes daily) - hypernatremia remains stable at 152; renal function also stable. K decreased to 3.2 - give KDur 40 mEq x1. Longoria replaced on 11/15/17. Dr. Lopez considering debridement. Hx of pacemaker - would need to check compatibility for poss MRI. Discussed with Dr. Fernandez. Continue Zosyn. Venous doppler ordered of left arm. 11/16/17 Hgb remains stable, 7.8, though will need close monitoring with reports of melanotic stools last night - could still be residual from known esophageal ulcer. Continue Carafate and Protonix, soft diet. Cont ASA b/c right SFA angioplasty. Hypernatremia remains at 152; renal function also stable. K improved to 3.7. Weight is trending up; she's had positive fluid balances since admit. Poss fluid on CXR vs. pneumonia/atelectasis. Oral Bumex resumed on 11/14 - may need IV diuretic. Continue Zosyn per ID recommendations. 11/17/17 Hgb remains stable, 7.8, no further melanotic stools reported. Continue Carafate and Protonix, soft diet. Cont ASA b/c right SFA angioplasty. Hypernatremia persists, carrier fluid change to half-normal saline. Renal function stable. Fluid balance positive, increasing respiratory effort and chest x-ray with clear evidence of worsening heart failure. Supplemental dose IV Bumex given-assess response; if inadequate diuresis with 1 time dose will schedule IV Bumex q6Hrs. Very debilitated, prognosis guarded all things considered. Zosyn adjusted for renal function-depth of the wounds right foot worrisome for osteomyelitis. 11/18/17 Hgb improved to 8.5. Continue Carafate and Protonix, soft diet. I/O yesterday 950/1725 and weight has decreased to 78 kg. However, BNP [id number] yesterday and yesterday's CXR showed increased pulmonary edema. Oxygen requirements increased, 3.5L. Renal function overall stable with minimal rise in creatinine to 1.4. Hypernatremia more pronounced today at 154. Carrier IVF were changed to 1/2 NS yesterday. Discussed diuresis with Dr. Braun - will stop PO Bumex and start Bumex 1 mg IV QID. Start KDur 20 mEq WS. Continue Zosyn for right foot wound/possible osteomyelitis. WBC 11.1; afebrile. 11/19/17 Diuresis improving with 1000 UO reported overnight; weight down slightly. She's on 3.5L of oxygen. Tachypneic with audible secretions - continue Bumex Q6h. Renal function with mild elevation with BUN 24 and creatinine 1.5. Continue 1/2 NS as Na still high at 154. Continue Zosyn for right foot wound/possible osteomyelitis. WBC 11.2; afebrile. Hgb 8.1. Continue Carafate and protonix for esophageal ulcer. Respiratory acidosis present on blood gas; BiPAP initiated. 11/20/17 UO 2L yesterday; today with 1200 so far. Resp status improving - no longer tachypneic and is more alert and conversational. On 3L O2. Weight slowly trending down. Renal status stable with BUN 23 and creatinine 1.5. Na climbing; 155. D5 with K started earlier today - monitor response. Began discussion on expectations with the patient and her sister Aliya - at this time she would like to continue with current treatments, but she understands that if they continue to fail or if she wishes to withdraw care and focus on comfort, that is an option. 11/02/17 Na improved slightly to 152 on D5W with KCl. Renal function stable, BUN 23, creatinine 1.3. O2 demands improving as of last evening. Continue QID Bumex. Diarrhea x2 since last evening: has been on Zosyn since admission; clinically treating for osteomyelitis. Abdominal distention also noted today. If diarrhea continues, will check C. diff. Check CBC to f/u on anemia and leukocytosis. Left PICC line not working properly - d/w analysis evaluator - Hao Slater to withdraw PICC 3 cm, where it will still be in the subclavian. Ultimately we may need a new PICC line if pt/family wish to proceed with current cares. Consult dietary d/t malnutrition. ? parenteral nutrition.
[2017-11-21] MEDS: INSULIN ASPART 100unit/ml INJECTION SQ PRN (16:17)
[2017-11-21] MEDS: MIRTAZAPINE 15 MG TABLET PO SCH (21:09)
[2017-11-21] MEDS: INSULIN DETEMIR 100unit/ml INJECTION SQ SCH (21:09)
[2017-11-21] MEDS: SALINE FLUSH 10ml SYRINGE IVF PRN (21:09)
[2017-11-21] MEDS: ATORVASTATIN 40 MG TABLET PO SCH (21:09)
[2017-11-22] MEDS: PIPERACILLIN/TAZOBACTAM 2.25 GM in NS 100 ML IV SCH ×4 (00:28→19:01)
[2017-11-22] MEDS: SUCRALFATE 1gm/10ml ORAL LIQUID PO SCH ×4 (06:16→20:55)
[2017-11-22] MEDS: LEVOTHYROXINE 25 MCG TABLET PO SCH (06:16)
[2017-11-22] MEDS: PANTOPRAZOLE 40 MG TABLET PO SCH ×2 (06:17→17:39)
[2017-11-22] MEDS: POTASSIUM CHLORIDE IV SCH (06:18)
[2017-11-22] MEDS: D5W IV SCH (06:18)
[2017-11-22] MEDS: ALBUTEROL 2.5mg/3ml (0.083%) NEB AEROSOL SCH ×2 (07:25→21:50)
[2017-11-22] MEDS: LACTOBACILLUS (15B cfu) CAPSULE PO SCH ×2 (09:23→17:38)
[2017-11-22] MEDS: CARVEDILOL 12.5 MG TABLET PO SCH ×2 (09:23→17:38)
[2017-11-22] MEDS: AMLODIPINE 2.5 MG TABLET PO SCH (09:24)
[2017-11-22] MEDS: ASPIRIN 81 MG CHEWABLE TABLET PO SCH (09:24)
[2017-11-22] MEDS: AMIODARONE 200 MG TABLET PO SCH (09:24)
[2017-11-22] MEDS: FERROUS SULFATE 324 MG TABLET PO SCH (09:24)
[2017-11-22] MEDS: ASCORBIC ACID 500 MG TABLET PO SCH (09:24)
[2017-11-22] MEDS: LISINOPRIL 2.5 MG TABLET PO SCH (09:25)
[2017-11-22] MEDS: INSULIN ASPART 100unit/ml INJECTION SQ PRN ×3 (11:25→20:57)
--- NOTE | 2017-11-22 16:39 | Progress Note ---
- Date 11/22/17 Subjective: This seen this afternoon in follow-up. She is alert, oriented and pleasant. Does appear weak and fragile. Continues to be pale in color. She is currently breathing on 4.5-5 liters. He is feeling dizziness, lightheadedness or chest pain. Appetite is good. Objective Vital signs: Temperature 97 F 11/22/17 15:57 Pulse Rate 60 11/22/17 16:00 Respiratory Rate 20 11/22/17 15:57 Blood Pressure 165/69 H 11/22/17 15:57 Pulse Oximetry 97 11/22/17 15:57 Rhythm: Normal Sinus Rhythm Height/Weight/BMI: Height 1.63 m Weight 74.9 kg Body Mass Index 29.4 - Constitutional Present: no acute distress, well nourished, well developed - Routine HEENT Exam Eye: Present: EOMI ENT: Present: mucous membranes moist, dentition normal - Routine Respiratory Exam Present: CTA bilaterally. Absent: wheezes - Routine Cardiovascular Exam Present: RRR. Absent: murmur - Routine Abdominal Exam Present: soft, normoactive bowel sounds, non distended. Absent: tenderness - Routine Extremities Exam Present: normal capillary refill - Routine Skin Exam Present: dry, pallor, warm - Routine Neurological Exam Present: alert, oriented X3, CN II-XII intact - Routine Lymphatic Exam Lymphatic: Absent: adenopathy - Routine Psychiatric Exam Present: normal affect Results - Labs CBC & Chem 7: 11/22/17 04:16 11/22/17 04:17 Microbiology Results: Microbiology 11/10/17 22:26 Heel, Right Gram Stain - Final 11/10/17 22:26 Heel, Right Superficial Wound Culture - Final Enterococcus faecalis Achromobacter species Corynebacterium species Coag negative Staphylococcus 11/12/17 10:54 Sputum, Expectorated Gram Stain - Final 11/12/17 10:54 Sputum, Expectorated Sputum Culture - Final Normal Respiratory Rosie including Yeast Present 11/12/17 10:35 Urine, Cath Longoria Urine Culture - Final No Growth After 2 Days Assessment and Plan (1) Acute anemia Current visit: Yes Status: Acute Assessment and Plan: Impression: Acute anemia-hemoglobin was 7.1 at the end of October and she received 1 unit of blood. She received 1 unit PRBCs 11/11/2017 with hemoglobin improving to 8.0. Per previous lab at [facility], hemoglobin has been around the 10 range from June to September of this year. Upper GI bleed secondary to esophageal ulcer - EGD 11/12/2017 Esophageal cancer with current chemotherapy on hold Sepsis, right lower extremity wound-resolved Diabetic foot ulcer with skin and soft tissue infection-on Zosyn 11/10-present, and vancomycin 11/10-11/15. Type II DM PAD -On October 31 she underwent right SFA atherectomy and percutaneous angioplasty by Dr. Mcghee at [facility]. discussed with Dr. Hernandez and he would prefer that she stay on aspirin and Plavix, but if concerns for acute GI bleed he is okay with discontinuation of Plavix. Acute on chronic kidney injury, baseline creatinine approximately 1.3-was 1.6- 1.7 at the end of October. Creatinine has improved to baseline. Heart failure, preserved ejection fraction\VHD\known PFO Atrial fibrillation-currently sinus rhythm Poor vascular access-PICC line placed 11/10/2017 History of polymicrobial, MDR infection COPD with chronic hypoxemia-on 2 L Acute bronchitis-improved Recent UTI-resolved Hypovolemia-resolved Hypernatremia-present on admission Metabolic acidosis-resolved Immunocompromise secondary to chemotherapy Syncope prior to admission with generalized weakness Gross Hematuria-resolved Mild acute respiratory failure requiring 3 L of oxygen-normally on 2 L of oxygen daily Possible fluid overload Hypoalbuminemia/malnutrition Plan Work on weaning down oxygen, baseline is 2 liters Continue gentle diuresis with Bumex 1 milligram IV 4 times a day Overall weight continues to trend down. Persistent hypernatremia- continue with D5W with KCl. Monitor hemoglobin carefully as patient may require additional transfusion. Zosyn antimicrobial coverage of foot wound CBC and BMP tomorrow morning GI Prophylaxis: Protonix Resuscitation Status: Do Not Resuscitate - Time spent with patient Time with patient PN: 25 minutes - Physician Narrative Physician: Vishnu Casiano MD Narrative: Date: 11/22/17 Time: 1848 Have independently interviewed and examined pt. Chart reviewed. Case discussed with CM and my [employer] [employer]. Care plan developed with my supervision; agree with above. Doing fair. Reports feeling better in general. Breathing slightly easier. No pain with breathing. Eating fair. Really would like non-thicken water. Lungs: decreased bilaterally, decreased air movement. CV: regular AB: soft nt MSE: awake alert Plan: Continue with antibiotics for leg wound coverage. Continue treatment for esophageal ulcer. Weight trending down with diuresis - potentially need to back down on IV Bumex and D5W; renal status improved. Encourage activities. Monitor lab. Hospital Course Summary Disclaimer: The visit summary below is not to be considered part of the above Progress Note. Hospital Course: Impression: 1. Acute anemia 2. Suspected GI bleed 3. Esophageal cancer with current chemotherapy 4. Sepsis, suspected due to right lower extremity wound 5. Chronic right lower extremity wound with exacerbation of infection 6. PAD with recent ballooning and/or stenting of the RLE vascular system 7: Acute on chronic kidney injury, baseline creatinine approximately 1.3 8. Heart failure, preserved ejection fraction\VHD\known PFO 8. Atrial fibrillation 9. Poor vascular access 10. History of polymicrobial, MDR infection 11. COPD with chronic hypoxemia 12. Acute bronchitis 13. Recent UTI 14. Hypovolemia Plan: Admit, inpatient, ICU. Admitting: Dr. Carrillo. PCP: Dr. Rachel Dietz Patient will receive a single unit of blood now. Per blood bank, she usually receives leuko-reduced, irradiated blood. We will obtain additional H&H at around 6 hours from time of admission. I suspect that she is likely more anemic than her labs reveal due to significant hypovolemia. We may need additional transfusion this evening. Protonix drip per protocol. Have a PICC line placed due to poor vascular access. (I discussed this with the patient, risk & benefits discussed, she is in agreement to have PICC line placed ) Hold aspirin and Plavix this evening. We will need to obtain records from [facility] regarding specific procedures in the morning. Consult Dr. Lopez in the morning for further evaluation of GI bleeding. Check INR now. We will hold her antihypertensive currently. She is at high risk for hemodynamic instability. Hold diuretics. Continue amiodarone to help with rhythm control. She is not on full strength anticoagulation. Again, we will need to hold her aspirin and Plavix this evening, and further addressed in the morning. She is followed routinely by Dr. John Leyva. Monitor for fluid overload due to known history of heart failure and valvular heart disease. She has recently been on chemotherapy, therefore is immunocompromised. She also has a history of MDR infections. We'll consult Dr. Afua Fernandez in the morning. Start on Zosyn and vancomycin. Blood cultures have been drawn in the emergency department. Obtain UA, wound cultures, and sputum cultures. Most recent urine cultures have been reviewed. Check lactate now and recheck per protocol. Continue O2 per home regimen. Restart breathing treatments. DVT prophylaxis: Will hold off for now. Due to very recent vascular stenting, I do not feel comfortable placing SCDs. No blood thinners due to known bleeding. CODE STATUS: I did discuss this with the patient. She remains a DO NOT RESUSCITATE as documented in her past medical history. Extensive time was spent this evening, greater than 90 minutes, and review of the medical record, exam, discussion with care team members, etc. Patient is very ill, will require close monitoring. 11/11/2017 The patient's hemoglobin did improve after 1 unit of blood. She is feeling just a little bit stronger. Sodium has increased overnight. She still has metabolic acidosis with bicarbonate of 18. Lactate has been normal 3. Will change IV fluids to D5 W with 75 mEq of sodium bicarbonate. Continue to monitor renal function closely. Regarding anemia and concern for possible GI bleed, hemoglobin had been in the 10 range until at least September of this year. When she went to [facility] for procedure at the end of October, her hemoglobin was 7.1 and she was given 1 unit of blood. Hemoglobin at discharge was 8.0. She was admitted yesterday with heme positive stool but did not have any melena or debbie hematic usually a. She had been on aspirin and Plavix for recent angioplasty of her right lower extremity. Her airport screener prefers that she would stay on aspirin and Plavix, but Plavix could be discontinued if there were significant concerns for GI bleed. Continue on Protonix drip for now.Continue to hold aspirin and Plavix for now. We'll make the patient nothing by mouth now in case she does need EGD regarding anemia and heme positive stool. Dr. Lopez was consulted regarding infected diabetic foot wound in her right lower extremity and regarding possible GI bleed with known esophageal cancer. Dr. Fernandez was consulted regarding the patient's diabetic foot wound. Will discuss patient's anemia, possible GI bleed and esophageal cancer with Dr. Newman. Recheck CBC, renal panel and magnesium tomorrow. Discussed with Dr. Lopez, Dr. Fernandez, and Dr. Hernandez. 11/12/2017 The patient's hemoglobin has been stable for the last 24 hours. Hemoglobin is currently 7.9. She received 1 unit of blood on the evening of admission. She is currently nothing by mouth for EGD around noon today. Blood pressures have been elevated today and she would likely benefit from restarting amlodipine and carvedilol. Lisinopril and Bumex has been on hold for acute kidney injury. Could consider restarting these soon as well. Regarding hematuria, will check urinalysis. Continue incentive spirometer to help with mild acute on chronic hypoxic respiratory failure. Consider DC IV fluids after ETT depending upon results We'll determine whether or not restart aspirin and/or Plavix after EGD Continue Protonix drip for now. Continue off of aspirin and Plavix for now. Continue on vancomycin and Zosyn for infected diabetic foot wound. Recheck CBC, renal panel tomorrow. Repeat chest x-ray tomorrow if not down to baseline oxygen level. Discussed with the patient's nurse and Dr. Lopez. 11/13/17 The patient's hemoglobin has been stable for the last 48 hours hours. Hemoglobin is currently 8.1. She received 1 unit of blood on the evening of admission. EGD revealed an esophageal ulcer. No active bleeding. Discussed with Dr. Lopez. Will start aspirin 81 mg daily because of her recent angioplasty of right SFA. Add Carafate slurry. Change Protonix to by mouth. Blood pressures doing better after restarting amlodipine and carvedilol. Acute kidney injury has resolved. I&O is +5 L. We'll restart Bumex. Continue to hold lisinopril at this time. DC IV fluids and encourage by mouth fluid intake. This should help with hypernatremia. Supplements 3 times a day with meals for hypoalbuminemia. Discussed diabetic foot ulcers with skin and soft tissue infection with Dr. Lopez. He wants to wait and see how she does with Iodosorb treatment and will consider wound exploration later this week. If there are signs of osteo- myelitis during exploration, he would likely check an MRI at that point. Discussed skin and soft tissue infection with Dr. Fernandez today as well. Titrate O2 if able. Heel protector to the left foot. 11/14/17 The patient's hemoglobin has been stable for the past 3 days. Hemoglobin is currently 7.7. She received 1 unit of blood on the evening of admission. EGD revealed an esophageal ulcer. No active bleeding. Aspirin 81 mg started yesterday because of her recent angioplasty of right SFA. Continue Carafate slurry and Protonix orally for esophageal ulcer Blood pressures doing better after restarting amlodipine and carvedilol. Consider restarting lisinopril Acute kidney injury has resolved. I&O is +5 L. We'll restart oral Bumex. We'll check a chest x-ray now, possible IV diuresis. Supplements 3 times a day with meals for hypoalbuminemia. Discussed diabetic foot ulcers with skin and soft tissue infection with Dr. Lopez. He wants to wait and see how she does with Iodosorb treatment and will consider wound exploration later this week. If there are signs of osteo- myelitis during exploration, he would likely check an MRI at that point. 11/15/17 Hgb remains stable, 7.9. Continue Carafate and Protonix, soft diet, for known esophageal ulcer. Cont ASA b/c right SFA angioplasty. Bumex was resumed yesterday (resumed BID, at home only takes daily) - hypernatremia remains stable at 152; renal function also stable. K decreased to 3.2 - give KDur 40 mEq x1. [place] replaced on 11/15/17. Dr. Lpoez considering debridement. Hx of pacemaker - would need to check compatibility for poss MRI. Discussed with Dr. Fernandez. Continue Zosyn. Venous doppler ordered of left arm. 11/16/17 Hgb remains stable, 7.8, though will need close monitoring with reports of melanotic stools last night - could still be residual from known esophageal ulcer. Continue Carafate and Protonix, soft diet. Cont ASA b/c right SFA angioplasty. Hypernatremia remains at 152; renal function also stable. K improved to 3.7. Weight is trending up; she's had positive fluid balances since admit. Poss fluid on CXR vs. pneumonia/atelectasis. Oral Bumex resumed on 11/14 - may need IV diuretic. Continue Zosyn per ID recommendations. 11/17/17 Hgb remains stable, 7.8, no further melanotic stools reported. Continue Carafate and Protonix, soft diet. Cont ASA b/c right SFA angioplasty. Hypernatremia persists, carrier fluid change to half-normal saline. Renal function stable. Fluid balance positive, increasing respiratory effort and chest x-ray with clear evidence of worsening heart failure. Supplemental dose IV Bumex given-assess response; if inadequate diuresis with 1 time dose will schedule IV Bumex q6Hrs. Very debilitated, prognosis guarded all things considered. Zosyn adjusted for renal function-depth of the wounds right foot worrisome for osteomyelitis. 11/18/17 Hgb improved to 8.5. Continue Carafate and Protonix, soft diet. I/O yesterday 950/1725 and weight has decreased to 78 kg. However, BNP [id number] yesterday and yesterday's CXR showed increased pulmonary edema. Oxygen requirements increased, 3.5L. Renal function overall stable with minimal rise in creatinine to 1.4. Hypernatremia more pronounced today at 154. Carrier IVF were changed to 1/2 NS yesterday. Discussed diuresis with Dr. Braun - will stop PO Bumex and start Bumex 1 mg IV QID. Start KDur 20 mEq WS. Continue Zosyn for right foot wound/possible osteomyelitis. WBC 11.1; afebrile. 11/19/17 Diuresis improving with 1000 UO reported overnight; weight down slightly. She's on 3.5L of oxygen. Tachypneic with audible secretions - continue Bumex Q6h. Renal function with mild elevation with BUN 24 and creatinine 1.5. Continue 1/2 NS as Na still high at 154. Continue Zosyn for right foot wound/possible osteomyelitis. WBC 11.2; afebrile. Hgb 8.1. Continue Carafate and protonix for esophageal ulcer. Respiratory acidosis present on blood gas; BiPAP initiated. 11/20/17 UO 2L yesterday; today with 1200 so far. Resp status improving - no longer tachypneic and is more alert and conversational. On 3L O2. Weight slowly trending down. Renal status stable with BUN 23 and creatinine 1.5. Na climbing; 155. D5 with K started earlier today - monitor response. Began discussion on expectations with the patient and her sister Aliya - at this time she would like to continue with current treatments, but she understands that if they continue to fail or if she wishes to withdraw care and focus on comfort, that is an option. 11/21/17 Na improved slightly to 152 on D5W with KCl. Renal function stable, BUN 23, creatinine 1.3. O2 demands improving as of last evening. Continue QID Bumex. Diarrhea x2 since last evening: has been on Zosyn since admission; clinically treating for osteomyelitis. Abdominal distention also noted today. If diarrhea continues, will check C. diff. Check CBC to f/u on anemia and leukocytosis. Left PICC line not working properly - d/w regulator tester - Hao Slater to withdraw PICC 3 cm, where it will still be in the subclavian. Ultimately we may need a new PICC line if pt/family wish to proceed with current cares. Consult dietary d/t malnutrition. ? parenteral nutrition. 11/22/17 Work on weaning down oxygen, baseline is 2 liters. Continue gentle diuresis with Bumex 1 milligram IV 4 times a day. Overall weight continues to trend down. Persistent hypernatremia- continue with D5W with KCl. Monitor hemoglobin carefully as patient may require additional transfusion. Zosyn antimicrobial coverage of foot wound.
[2017-11-22] MEDS: INSULIN DETEMIR 100unit/ml INJECTION SQ SCH (20:56)
[2017-11-22] MEDS: ATORVASTATIN 40 MG TABLET PO SCH (20:56)
[2017-11-22] MEDS: MIRTAZAPINE 15 MG TABLET PO SCH (20:56)
[2017-11-23] MEDS: PIPERACILLIN/TAZOBACTAM 2.25 GM in NS 100 ML IV SCH ×4 (00:42→18:48)
[2017-11-23] MEDS: D5W IV SCH ×2 (01:24→04:56)
[2017-11-23] MEDS: POTASSIUM CHLORIDE IV SCH ×2 (01:24→04:56)
[2017-11-23] MEDS: ACETAMINOPHEN 500 MG TABLET PO PRN ×2 (04:17→14:21)
[2017-11-23] MEDS: SUCRALFATE 1gm/10ml ORAL LIQUID PO SCH ×4 (06:07→20:16)
[2017-11-23] MEDS: PANTOPRAZOLE 40 MG TABLET PO SCH ×2 (06:07→17:47)
[2017-11-23] MEDS: LEVOTHYROXINE 25 MCG TABLET PO SCH (06:07)
[2017-11-23] MEDS: ALBUTEROL 2.5mg/3ml (0.083%) NEB AEROSOL SCH ×2 (08:09→19:07)
[2017-11-23] MEDS: LACTOBACILLUS (15B cfu) CAPSULE PO SCH ×2 (09:59→17:47)
[2017-11-23] MEDS: AMIODARONE 200 MG TABLET PO SCH (09:59)
[2017-11-23] MEDS: ASPIRIN 81 MG CHEWABLE TABLET PO SCH (09:59)
[2017-11-23] MEDS: LISINOPRIL 2.5 MG TABLET PO SCH (09:59)
[2017-11-23] MEDS: CARVEDILOL 12.5 MG TABLET PO SCH ×2 (10:00→17:48)
[2017-11-23] MEDS: AMLODIPINE 2.5 MG TABLET PO SCH (10:00)
[2017-11-23] MEDS: FERROUS SULFATE 324 MG TABLET PO SCH (10:00)
[2017-11-23] MEDS: ASCORBIC ACID 500 MG TABLET PO SCH (10:00)
--- NOTE | 2017-11-23 10:44 | Progress Note ---
- Date 11/23/17 Subjective: Angela is seen this morning in follow-up while eating breakfast with her sister at the bedside. She is alert and pleasant. She reports had a difficult night due to multiple interruptions and problems with her BiPAP. She is currently on 5 liters of oxygen by nasal cannula, however, does feel that her breathing has improved. She did have some intermittent foot pain overnight that was resolved with Tylenol. Her appetite is good. She is eating/drinking ensure, she does note she would love to drink some "normal water". Objective Vital signs: Temperature 96.7 F L 11/23/17 07:49 Pulse Rate 60 11/23/17 07:49 Respiratory Rate 20 11/23/17 08:09 Blood Pressure 130/56 11/23/17 07:49 Pulse Oximetry 100 11/23/17 08:09 Rhythm: Normal Sinus Rhythm Height/Weight/BMI: Height 1.63 m Weight 76.1 kg Body Mass Index 29.4 - Constitutional Present: no acute distress, well nourished, well developed - Routine HEENT Exam Eye: Present: EOMI ENT: Present: mucous membranes moist, dentition normal - Routine Respiratory Exam Present: diminished air movement. Absent: wheezes - Routine Cardiovascular Exam Present: RRR, S1, S2. Absent: murmur - Routine Abdominal Exam Present: soft, normoactive bowel sounds, non distended. Absent: tenderness - Routine Extremities Exam Present: edema (trace bilateral lower ext), normal capillary refill - Routine Skin Exam Present: dry, warm - Routine Neurological Exam Present: alert, oriented X3, CN II-XII intact - Routine Lymphatic Exam Lymphatic: Absent: adenopathy - Routine Psychiatric Exam Present: normal affect Results - Labs CBC & Chem 7: 11/23/17 04:16 11/23/17 04:16 Microbiology Results: Microbiology 11/10/17 22:26 Heel, Right Gram Stain - Final 11/10/17 22:26 Heel, Right Superficial Wound Culture - Final Enterococcus faecalis Achromobacter species Corynebacterium species Coag negative Staphylococcus 11/12/17 10:54 Sputum, Expectorated Gram Stain - Final 11/12/17 10:54 Sputum, Expectorated Sputum Culture - Final Normal Respiratory Rosie including Yeast Present 11/12/17 10:35 Urine, Cath Longoria Urine Culture - Final No Growth After 2 Days Assessment and Plan (1) Acute anemia Current visit: Yes Status: Acute Assessment and Plan: Impression: Acute anemia-hemoglobin was 7.1 at the end of October and she received 1 unit of blood. She received 1 unit PRBCs 11/11/2017 with hemoglobin improving to 8.0. Per previous lab at [facility], hemoglobin has been around the 10 range from June to September of this year. Upper GI bleed secondary to esophageal ulcer - EGD 11/12/2017 Esophageal cancer with current chemotherapy on hold Sepsis, right lower extremity wound-resolved Diabetic foot ulcer with skin and soft tissue infection-on Zosyn 11/10-present, and vancomycin 11/10-11/15. Type II DM PAD -On October 31 she underwent right SFA atherectomy and percutaneous angioplasty by Dr. Mcghee at [facility]. discussed with Dr. Hernandez and he would prefer that she stay on aspirin and Plavix, but if concerns for acute GI bleed he is okay with discontinuation of Plavix. Acute on chronic kidney injury, baseline creatinine approximately 1.3-was 1.6- 1.7 at the end of October. Creatinine has improved to baseline. Heart failure, preserved ejection fraction\\VHD\\known PFO Atrial fibrillation-currently sinus rhythm Poor vascular access-PICC line placed 11/10/2017 History of polymicrobial, MDR infection COPD with chronic hypoxemia-on 2 L Acute bronchitis-improved Recent UTI-resolved Hypovolemia-resolved Hypernatremia-present on admission Metabolic acidosis-resolved Immunocompromise secondary to chemotherapy Syncope prior to admission with generalized weakness Gross Hematuria-resolved Mild acute respiratory failure requiring 3 L of oxygen-normally on 2 L of oxygen daily Possible fluid overload Hypoalbuminemia/malnutrition Plan Zosyn IV for treatment of foot wound Tylenol as needed for pain Continue to work on weaning down oxygen, baseline is 2 liters Bumex 1 milligram IV 4 times a day - Sodium improving- NA 143 Continue to follow Hgb- slowly trending down 7.5 Replace Magnesium IV Recheck CBC, BMP and Mg tomorrow morning GI Prophylaxis: Protonix Resuscitation Status: Do Not Resuscitate - Time spent with patient Time with patient PN: 25 minutes - Physician Narrative Physician: Vishnu Casiano MD Narrative: Date: 11/23/17 Time: 1433 Have independently interviewed and examined pt. Chart reviewed. Case discussed with my [employer]. Care plan developed with my supervision; agree with above. Doing fair today. Right foot hurting more. Does feel breathing slightly better- less congested. Tolerating BiPAP at night. No chest pressure or pain. Appetite fair-eating about 50% or meal. Feels she fills up easily when eating. Strength decreased. Lungs: decreased bilaterally CV: regular AB: soft slight distention, NT MSE: awake alert Plan: Will decrease D5W with 20KCl to 25cc/hr as sodium improving and potassium with increase. Continue IV Bumex. Replace Magnesium. Continue Zosyn and wound care. Wean O2 as able-saturations showing improvement. Encourage BiPAP use. Hospital Course Summary Disclaimer: The visit summary below is not to be considered part of the above Progress Note. Hospital Course: Impression: 1. Acute anemia 2. Suspected GI bleed 3. Esophageal cancer with current chemotherapy 4. Sepsis, suspected due to right lower extremity wound 5. Chronic right lower extremity wound with exacerbation of infection 6. PAD with recent ballooning and/or stenting of the RLE vascular system 7: Acute on chronic kidney injury, baseline creatinine approximately 1.3 8. Heart failure, preserved ejection fraction\\VHD\\known PFO 8. Atrial fibrillation 9. Poor vascular access 10. History of polymicrobial, MDR infection 11. COPD with chronic hypoxemia 12. Acute bronchitis 13. Recent UTI 14. Hypovolemia Plan: Admit, inpatient, ICU. Admitting: Dr. Carrillo. PCP: Dr. Rachel Dietz Patient will receive a single unit of blood now. Per blood bank, she usually receives leuko-reduced, irradiated blood. We will obtain additional H&H at around 6 hours from time of admission. I suspect that she is likely more anemic than her labs reveal due to significant hypovolemia. We may need additional transfusion this evening. Protonix drip per protocol. Have a PICC line placed due to poor vascular access. (I discussed this with the patient, risk & benefits discussed, she is in agreement to have PICC line placed ) Hold aspirin and Plavix this evening. We will need to obtain records from [facility] regarding specific procedures in the morning. Consult Dr. Lopez in the morning for further evaluation of GI bleeding. Check INR now. We will hold her antihypertensive currently. She is at high risk for hemodynamic instability. Hold diuretics. Continue amiodarone to help with rhythm control. She is not on full strength anticoagulation. Again, we will need to hold her aspirin and Plavix this evening, and further addressed in the morning. She is followed routinely by Dr. John Leyva. Monitor for fluid overload due to known history of heart failure and valvular heart disease. She has recently been on chemotherapy, therefore is immunocompromised. She also has a history of MDR infections. We'll consult Dr. Afua Fernandez in the morning. Start on Zosyn and vancomycin. Blood cultures have been drawn in the emergency department. Obtain UA, wound cultures, and sputum cultures. Most recent urine cultures have been reviewed. Check lactate now and recheck per protocol. Continue O2 per home regimen. Restart breathing treatments. DVT prophylaxis: Will hold off for now. Due to very recent vascular stenting, I do not feel comfortable placing SCDs. No blood thinners due to known bleeding. CODE STATUS: I did discuss this with the patient. She remains a DO NOT RESUSCITATE as documented in her past medical history. Extensive time was spent this evening, greater than 90 minutes, and review of the medical record, exam, discussion with care team members, etc. Patient is very ill, will require close monitoring. 11/11/2017 The patient's hemoglobin did improve after 1 unit of blood. She is feeling just a little bit stronger. Sodium has increased overnight. She still has metabolic acidosis with bicarbonate of 18. Lactate has been normal 3. Will change IV fluids to D5 W with 75 mEq of sodium bicarbonate. Continue to monitor renal function closely. Regarding anemia and concern for possible GI bleed, hemoglobin had been in the 10 range until at least September of this year. When she went to [facility] for procedure at the end of October, her hemoglobin was 7.1 and she was given 1 unit of blood. Hemoglobin at discharge was 8.0. She was admitted yesterday with heme positive stool but did not have any melena or debbie hematic usually a. She had been on aspirin and Plavix for recent angioplasty of her right lower extremity. Her allergist/immunologist prefers that she would stay on aspirin and Plavix, but Plavix could be discontinued if there were significant concerns for GI bleed. Continue on Protonix drip for now.Continue to hold aspirin and Plavix for now. We'll make the patient nothing by mouth now in case she does need EGD regarding anemia and heme positive stool. Dr. Lopez was consulted regarding infected diabetic foot wound in her right lower extremity and regarding possible GI bleed with known esophageal cancer. Dr. Fernandez was consulted regarding the patient's diabetic foot wound. Will discuss patient's anemia, possible GI bleed and esophageal cancer with Dr. Newman. Recheck CBC, renal panel and magnesium tomorrow. Discussed with Dr. Lopez, Dr. Fernandez, and Dr. Hernandez. 11/12/2017 The patient's hemoglobin has been stable for the last 24 hours. Hemoglobin is currently 7.9. She received 1 unit of blood on the evening of admission. She is currently nothing by mouth for EGD around noon today. Blood pressures have been elevated today and she would likely benefit from restarting amlodipine and carvedilol. Lisinopril and Bumex has been on hold for acute kidney injury. Could consider restarting these soon as well. Regarding hematuria, will check urinalysis. Continue incentive spirometer to help with mild acute on chronic hypoxic respiratory failure. Consider DC IV fluids after ETT depending upon results We'll determine whether or not restart aspirin and/or Plavix after EGD Continue Protonix drip for now. Continue off of aspirin and Plavix for now. Continue on vancomycin and Zosyn for infected diabetic foot wound. Recheck CBC, renal panel tomorrow. Repeat chest x-ray tomorrow if not down to baseline oxygen level. Discussed with the patient's nurse and Dr. Lopez. 11/13/17 The patient's hemoglobin has been stable for the last 48 hours hours. Hemoglobin is currently 8.1. She received 1 unit of blood on the evening of admission. EGD revealed an esophageal ulcer. No active bleeding. Discussed with Dr. Lopez. Will start aspirin 81 mg daily because of her recent angioplasty of right SFA. Add Carafate slurry. Change Protonix to by mouth. Blood pressures doing better after restarting amlodipine and carvedilol. Acute kidney injury has resolved. I&O is +5 L. We'll restart Bumex. Continue to hold lisinopril at this time. DC IV fluids and encourage by mouth fluid intake. This should help with hypernatremia. Supplements 3 times a day with meals for hypoalbuminemia. Discussed diabetic foot ulcers with skin and soft tissue infection with Dr. Lopez. He wants to wait and see how she does with Iodosorb treatment and will consider wound exploration later this week. If there are signs of osteo- myelitis during exploration, he would likely check an MRI at that point. Discussed skin and soft tissue infection with Dr. Fernandez today as well. Titrate O2 if able. Heel protector to the left foot. 11/14/17 The patient's hemoglobin has been stable for the past 3 days. Hemoglobin is currently 7.7. She received 1 unit of blood on the evening of admission. EGD revealed an esophageal ulcer. No active bleeding. Aspirin 81 mg started yesterday because of her recent angioplasty of right SFA. Continue Carafate slurry and Protonix orally for esophageal ulcer Blood pressures doing better after restarting amlodipine and carvedilol. Consider restarting lisinopril Acute kidney injury has resolved. I&O is +5 L. We'll restart oral Bumex. We'll check a chest x-ray now, possible IV diuresis. Supplements 3 times a day with meals for hypoalbuminemia. Discussed diabetic foot ulcers with skin and soft tissue infection with Dr. Lopez. He wants to wait and see how she does with Iodosorb treatment and will consider wound exploration later this week. If there are signs of osteo- myelitis during exploration, he would likely check an MRI at that point. 11/15/17 Hgb remains stable, 7.9. Continue Carafate and Protonix, soft diet, for known esophageal ulcer. Cont ASA b/c right SFA angioplasty. Bumex was resumed yesterday (resumed BID, at home only takes daily) - hypernatremia remains stable at 152; renal function also stable. K decreased to 3.2 - give KDur 40 mEq x1. Longoria replaced on 11/15/17. Dr. Lopez considering debridement. Hx of pacemaker - would need to check compatibility for poss MRI. Discussed with Dr. Fernandez. Continue Zosyn. Venous doppler ordered of left arm. 11/16/17 Hgb remains stable, 7.8, though will need close monitoring with reports of melanotic stools last night - could still be residual from known esophageal ulcer. Continue Carafate and Protonix, soft diet. Cont ASA b/c right SFA angioplasty. Hypernatremia remains at 152; renal function also stable. K improved to 3.7. Weight is trending up; she's had positive fluid balances since admit. Poss fluid on CXR vs. pneumonia/atelectasis. Oral Bumex resumed on 11/14 - may need IV diuretic. Continue Zosyn per ID recommendations. 11/17/17 Hgb remains stable, 7.8, no further melanotic stools reported. Continue Carafate and Protonix, soft diet. Cont ASA b/c right SFA angioplasty. Hypernatremia persists, carrier fluid change to half-normal saline. Renal function stable. Fluid balance positive, increasing respiratory effort and chest x-ray with clear evidence of worsening heart failure. Supplemental dose IV Bumex given-assess response; if inadequate diuresis with 1 time dose will schedule IV Bumex q6Hrs. Very debilitated, prognosis guarded all things considered. Zosyn adjusted for renal function-depth of the wounds right foot worrisome for osteomyelitis. 11/18/17 Hgb improved to 8.5. Continue Carafate and Protonix, soft diet. I/O yesterday 950/1725 and weight has decreased to 78 kg. However, BNP [id number] yesterday and yesterday's CXR showed increased pulmonary edema. Oxygen requirements increased, 3.5L. Renal function overall stable with minimal rise in creatinine to 1.4. Hypernatremia more pronounced today at 154. Carrier IVF were changed to 1/2 NS yesterday. Discussed diuresis with Dr. Braun - will stop PO Bumex and start Bumex 1 mg IV QID. Start KDur 20 mEq WS. Continue Zosyn for right foot wound/possible osteomyelitis. WBC 11.1; afebrile. 11/19/17 Diuresis improving with 1000 UO reported overnight; weight down slightly. She's on 3.5L of oxygen. Tachypneic with audible secretions - continue Bumex Q6h. Renal function with mild elevation with BUN 24 and creatinine 1.5. Continue 1/2 NS as Na still high at 154. Continue Zosyn for right foot wound/possible osteomyelitis. WBC 11.2; afebrile. Hgb 8.1. Continue Carafate and protonix for esophageal ulcer. Respiratory acidosis present on blood gas; BiPAP initiated. 11/20/17 UO 2L yesterday; today with 1200 so far. Resp status improving - no longer tachypneic and is more alert and conversational. On 3L O2. Weight slowly trending down. Renal status stable with BUN 23 and creatinine 1.5. Na climbing; 155. D5 with K started earlier today - monitor response. Began discussion on expectations with the patient and her sister Aliya - at this time she would like to continue with current treatments, but she understands that if they continue to fail or if she wishes to withdraw care and focus on comfort, that is an option. 11/21/17 Na improved slightly to 152 on D5W with KCl. Renal function stable, BUN 23, creatinine 1.3. O2 demands improving as of last evening. Continue QID Bumex. Diarrhea x2 since last evening: has been on Zosyn since admission; clinically treating for osteomyelitis. Abdominal distention also noted today. If diarrhea continues, will check C. diff. Check CBC to f/u on anemia and leukocytosis. Left PICC line not working properly - d/w brick paver - Hao Slater to withdraw PICC 3 cm, where it will still be in the subclavian. Ultimately we may need a new PICC line if pt/family wish to proceed with current cares. Consult dietary d/t malnutrition. ? parenteral nutrition. 11/22/17 Work on weaning down oxygen, baseline is 2 liters. Continue gentle diuresis with Bumex 1 milligram IV 4 times a day. Overall weight continues to trend down. Persistent hypernatremia - continue with D5W with KCl. Monitor hemoglobin carefully as patient may require additional transfusion. Zosyn antimicrobial coverage of foot wound. Continue wound care. 11/23/17 Zosyn IV for treatment of foot wound Tylenol as needed for pain Continue to work on weaning down oxygen, baseline is 2 liters. Bumex 1 milligram IV 4 times a day - With sodium decrease to 143, will decrease D5W with KCl to 25cc/hr. Continue to follow Hgb- slowly trending down 7.5. Replace Magnesium IV - 2 grams IV. Recheck CBC, BMP and Mg tomorrow morning
[2017-11-23] MEDS: MAGNESIUM SULFATE 1gm PREMIX 1 GM/100 ML BAG IV SCH ×2 (12:31→14:54)
[2017-11-23] MEDS: INSULIN ASPART 100unit/ml INJECTION SQ PRN ×3 (12:32→20:16)
[2017-11-23] MEDS ORDERED: POTASSIUM CHLORIDE INJ 20 MEQ in D5W 1,000 ML IV SCH (14:30)
[2017-11-23] MEDS: SALINE FLUSH 10ml SYRINGE IVF PRN (17:48)
[2017-11-23] MEDS: ATORVASTATIN 40 MG TABLET PO SCH (20:15)
[2017-11-23] MEDS: INSULIN DETEMIR 100unit/ml INJECTION SQ SCH (20:15)
[2017-11-23] MEDS: MIRTAZAPINE 15 MG TABLET PO SCH (20:16)
[2017-11-23] MEDS: LORazepam 0.5 MG TABLET PO PRN (23:17)
[2017-11-24] MEDS: PIPERACILLIN/TAZOBACTAM 2.25 GM in NS 100 ML IV SCH ×4 (01:48→19:34)
[2017-11-24] MEDS: PANTOPRAZOLE 40 MG TABLET PO SCH ×2 (06:33→17:16)
[2017-11-24] MEDS: LEVOTHYROXINE 25 MCG TABLET PO SCH (06:33)
[2017-11-24] MEDS: SUCRALFATE 1gm/10ml ORAL LIQUID PO SCH ×4 (06:35→21:07)
[2017-11-24] MEDS: ALBUTEROL 2.5mg/3ml (0.083%) NEB AEROSOL SCH ×2 (09:13→20:14)
[2017-11-24] MEDS: CARVEDILOL 12.5 MG TABLET PO SCH ×2 (09:48→17:19)
[2017-11-24] MEDS: FERROUS SULFATE 324 MG TABLET PO SCH (09:48)
[2017-11-24] MEDS: ASCORBIC ACID 500 MG TABLET PO SCH (09:49)
[2017-11-24] MEDS: AMLODIPINE 2.5 MG TABLET PO SCH (09:49)
[2017-11-24] MEDS: AMIODARONE 200 MG TABLET PO SCH (09:49)
[2017-11-24] MEDS: LACTOBACILLUS (15B cfu) CAPSULE PO SCH ×2 (09:49→17:19)
[2017-11-24] MEDS: LISINOPRIL 2.5 MG TABLET PO SCH (09:50)
[2017-11-24] MEDS: ASPIRIN 81 MG CHEWABLE TABLET PO SCH (09:50)
[2017-11-24] MEDS: INSULIN ASPART 100unit/ml INJECTION SQ PRN ×2 (10:42→14:43)
[2017-11-24] MEDS: ACETAMINOPHEN 500 MG TABLET PO PRN (11:27)
--- NOTE | 2017-11-24 13:11 | Progress Note ---
- Date 11/24/17 Subjective: F/U: Anemia secondary to GI bleed, GI bleed secondary to esophageal ulcer, Diabetic foot wound. Doing okay today. Breathing feels better-down to her baseline 2L O2. Not having cough/congestion. Appetite improving. No nausea. Bowels moving. Strength decreased. Objective Vital signs: Temperature 97.8 F 11/24/17 08:00 Pulse Rate 65 11/24/17 08:00 Respiratory Rate 22 11/24/17 09:14 Blood Pressure 160/68 H 11/24/17 08:00 Pulse Oximetry 98 11/24/17 09:14 Rhythm: Normal Sinus Rhythm Height/Weight/BMI: Height 1.63 m Weight 77.4 kg Body Mass Index 29.4 - Constitutional Present: well nourished, well developed, average body habitus, cooperative - Routine HEENT Exam Head: Present: normocephalic, atraumatic Eye: Present: EOMI, PERRL ENT: Present: mucous membranes moist - Routine Respiratory Exam Present: decreased breath sounds, distant breath sounds, diminished air movement. Absent: respiratory distress - Routine Cardiovascular Exam Present: RRR, no murmur - Routine Abdominal Exam Present: soft, non distended, non tender. Absent: normoactive bowel sounds ( decreased) - Routine Exam Comments: Longoria present - Routine Extremities Exam Present: no edema, pulses intact. Absent: cyanosis, clubbing - Routine Musculoskeletal Exam Musculoskeletal: Present: no clubbing or cyanosis - Routine Skin Exam Present: dry, warm - Routine Neurological Exam Present: alert, oriented X3, CN II-XII intact, moving all extremities, vision grossly intact, hearing grossly intact, normal speech. Absent: altered mental status - Routine Psychiatric Exam Present: normal affect, normal thought process, cooperative Results - Labs CBC & Chem 7: 11/24/17 03:57 11/24/17 03:57 Microbiology Results: Microbiology 11/10/17 22:26 Heel, Right Gram Stain - Final 11/10/17 22:26 Heel, Right Superficial Wound Culture - Final Enterococcus faecalis Achromobacter species Corynebacterium species Coag negative Staphylococcus 11/12/17 10:54 Sputum, Expectorated Gram Stain - Final 11/12/17 10:54 Sputum, Expectorated Sputum Culture - Final Normal Respiratory Rosie including Yeast Present 11/12/17 10:35 Urine, Cath Longoria Urine Culture - Final No Growth After 2 Days Assessment and Plan (1) Acute anemia Current visit: Yes Status: Acute Assessment and Plan: Impression: Acute anemia-hemoglobin was 7.1 at the end of October and she received 1 unit of blood. She received 1 unit PRBCs 11/11/2017 with hemoglobin improving to 8.0. Per previous lab at [facility], hemoglobin has been around the 10 range from June to September of this year. Upper GI bleed secondary to esophageal ulcer - EGD 11/12/2017 Esophageal cancer with current chemotherapy on hold Sepsis, right lower extremity wound-resolved Diabetic foot ulcer with skin and soft tissue infection-on Zosyn 11/10-present, and vancomycin 11/10-11/15. Type II DM PAD -On October 31 she underwent right SFA atherectomy and percutaneous angioplasty by Dr. Mcghee at [facility]. discussed with Dr. Hernandez and he would prefer that she stay on aspirin and Plavix, but if concerns for acute GI bleed he is okay with discontinuation of Plavix. Acute on chronic kidney injury, baseline creatinine approximately 1.3-was 1.6- 1.7 at the end of October. Creatinine has improved to baseline. Heart failure, preserved ejection fraction\VHD\known PFO Atrial fibrillation-currently sinus rhythm Poor vascular access-PICC line placed 11/10/2017 History of polymicrobial, MDR infection COPD with chronic hypoxemia-on 2 L Acute bronchitis-improved Recent UTI-resolved Hypovolemia-resolved Hypernatremia-present on admission Metabolic acidosis-resolved Immunocompromise secondary to chemotherapy Syncope prior to admission with generalized weakness Gross Hematuria-resolved Mild acute respiratory failure requiring 3 L of oxygen-normally on 2 L of oxygen daily Possible fluid overload Hypoalbuminemia/malnutrition Plan Continue Zosyn IV for treatment of foot wound. Continue wound care. Oxygenation at baseline. Creatinine showing increase to 1.4. Sodium increased to 149. Will stop IV Bumex and D5W. Restart home Bumex 1mg po BID. Recheck CXR tomorrow. Continue BIPAP at night to help respiratory status - on home CPAP. Continue Protonix and Carafate for ulcer. Oral drive improving. Recheck CBC in am due to anemia and foot wound. Will recheck BMP in am due to medication use. Continue with supportive care. DVT Prophylaxis: SCD's Resuscitation Status: Do Not Resuscitate - Time spent with patient Time with patient PN: 25 minutes - Physician Narrative Physician: Vishnu Casiano MD Narrative: Date: 11/24/17 Time: 1307 Hospital Course Summary Disclaimer: The visit summary below is not to be considered part of the above Progress Note. Hospital Course: Impression: 1. Acute anemia 2. Suspected GI bleed 3. Esophageal cancer with current chemotherapy 4. Sepsis, suspected due to right lower extremity wound 5. Chronic right lower extremity wound with exacerbation of infection 6. PAD with recent ballooning and/or stenting of the RLE vascular system 7: Acute on chronic kidney injury, baseline creatinine approximately 1.3 8. Heart failure, preserved ejection fraction\VHD\known PFO 8. Atrial fibrillation 9. Poor vascular access 10. History of polymicrobial, MDR infection 11. COPD with chronic hypoxemia 12. Acute bronchitis 13. Recent UTI 14. Hypovolemia Plan: Admit, inpatient, ICU. Admitting: Dr. Carrillo. PCP: Dr. Rachel Dietz Patient will receive a single unit of blood now. Per blood bank, she usually receives leuko-reduced, irradiated blood. We will obtain additional H&H at around 6 hours from time of admission. I suspect that she is likely more anemic than her labs reveal due to significant hypovolemia. We may need additional transfusion this evening. Protonix drip per protocol. Have a PICC line placed due to poor vascular access. (I discussed this with the patient, risk & benefits discussed, she is in agreement to have PICC line placed ) Hold aspirin and Plavix this evening. We will need to obtain records from [facility] regarding specific procedures in the morning. Consult Dr. Lopez in the morning for further evaluation of GI bleeding. Check INR now. We will hold her antihypertensive currently. She is at high risk for hemodynamic instability. Hold diuretics. Continue amiodarone to help with rhythm control. She is not on full strength anticoagulation. Again, we will need to hold her aspirin and Plavix this evening, and further addressed in the morning. She is followed routinely by Dr. John Leyva. Monitor for fluid overload due to known history of heart failure and valvular heart disease. She has recently been on chemotherapy, therefore is immunocompromised. She also has a history of MDR infections. We'll consult Dr. Afua Fernandez in the morning. Start on Zosyn and vancomycin. Blood cultures have been drawn in the emergency department. Obtain UA, wound cultures, and sputum cultures. Most recent urine cultures have been reviewed. Check lactate now and recheck per protocol. Continue O2 per home regimen. Restart breathing treatments. DVT prophylaxis: Will hold off for now. Due to very recent vascular stenting, I do not feel comfortable placing SCDs. No blood thinners due to known bleeding. CODE STATUS: I did discuss this with the patient. She remains a DO NOT RESUSCITATE as documented in her past medical history. Extensive time was spent this evening, greater than 90 minutes, and review of the medical record, exam, discussion with care team members, etc. Patient is very ill, will require close monitoring. 11/11/2017 The patient's hemoglobin did improve after 1 unit of blood. She is feeling just a little bit stronger. Sodium has increased overnight. She still has metabolic acidosis with bicarbonate of 18. Lactate has been normal 3. Will change IV fluids to D5 W with 75 mEq of sodium bicarbonate. Continue to monitor renal function closely. Regarding anemia and concern for possible GI bleed, hemoglobin had been in the 10 range until at least September of this year. When she went to [facility] for procedure at the end of October, her hemoglobin was 7.1 and she was given 1 unit of blood. Hemoglobin at discharge was 8.0. She was admitted yesterday with heme positive stool but did not have any melena or debbie hematic usually a. She had been on aspirin and Plavix for recent angioplasty of her right lower extremity. Her rehabilitation physician prefers that she would stay on aspirin and Plavix, but Plavix could be discontinued if there were significant concerns for GI bleed. Continue on Protonix drip for now.Continue to hold aspirin and Plavix for now. We'll make the patient nothing by mouth now in case she does need EGD regarding anemia and heme positive stool. Dr. Lopez was consulted regarding infected diabetic foot wound in her right lower extremity and regarding possible GI bleed with known esophageal cancer. Dr. Fernandez was consulted regarding the patient's diabetic foot wound. Will discuss patient's anemia, possible GI bleed and esophageal cancer with Dr. Newman. Recheck CBC, renal panel and magnesium tomorrow. Discussed with Dr. Lopez, Dr. Fernandez, and Dr. Hernandez. 11/12/2017 The patient's hemoglobin has been stable for the last 24 hours. Hemoglobin is currently 7.9. She received 1 unit of blood on the evening of admission. She is currently nothing by mouth for EGD around noon today. Blood pressures have been elevated today and she would likely benefit from restarting amlodipine and carvedilol. Lisinopril and Bumex has been on hold for acute kidney injury. Could consider restarting these soon as well. Regarding hematuria, will check urinalysis. Continue incentive spirometer to help with mild acute on chronic hypoxic respiratory failure. Consider DC IV fluids after ETT depending upon results We'll determine whether or not restart aspirin and/or Plavix after EGD Continue Protonix drip for now. Continue off of aspirin and Plavix for now. Continue on vancomycin and Zosyn for infected diabetic foot wound. Recheck CBC, renal panel tomorrow. Repeat chest x-ray tomorrow if not down to baseline oxygen level. Discussed with the patient's nurse and Dr. Lopez. 11/13/17 The patient's hemoglobin has been stable for the last 48 hours hours. Hemoglobin is currently 8.1. She received 1 unit of blood on the evening of admission. EGD revealed an esophageal ulcer. No active bleeding. Discussed with Dr. Lopez. Will start aspirin 81 mg daily because of her recent angioplasty of right SFA. Add Carafate slurry. Change Protonix to by mouth. Blood pressures doing better after restarting amlodipine and carvedilol. Acute kidney injury has resolved. I&O is +5 L. We'll restart Bumex. Continue to hold lisinopril at this time. DC IV fluids and encourage by mouth fluid intake. This should help with hypernatremia. Supplements 3 times a day with meals for hypoalbuminemia. Discussed diabetic foot ulcers with skin and soft tissue infection with Dr. Lopez. He wants to wait and see how she does with Iodosorb treatment and will consider wound exploration later this week. If there are signs of osteo- myelitis during exploration, he would likely check an MRI at that point. Discussed skin and soft tissue infection with Dr. Fernandez today as well. Titrate O2 if able. Heel protector to the left foot. 11/14/17 The patient's hemoglobin has been stable for the past 3 days. Hemoglobin is currently 7.7. She received 1 unit of blood on the evening of admission. EGD revealed an esophageal ulcer. No active bleeding. Aspirin 81 mg started yesterday because of her recent angioplasty of right SFA. Continue Carafate slurry and Protonix orally for esophageal ulcer Blood pressures doing better after restarting amlodipine and carvedilol. Consider restarting lisinopril Acute kidney injury has resolved. I&O is +5 L. We'll restart oral Bumex. We'll check a chest x-ray now, possible IV diuresis. Supplements 3 times a day with meals for hypoalbuminemia. Discussed diabetic foot ulcers with skin and soft tissue infection with Dr. Lopez. He wants to wait and see how she does with Iodosorb treatment and will consider wound exploration later this week. If there are signs of osteo- myelitis during exploration, he would likely check an MRI at that point. 11/15/17 Hgb remains stable, 7.9. Continue Carafate and Protonix, soft diet, for known esophageal ulcer. Cont ASA b/c right SFA angioplasty. Bumex was resumed yesterday (resumed BID, at home only takes daily) - hypernatremia remains stable at 152; renal function also stable. K decreased to 3.2 - give KDur 40 mEq x1. Longoria replaced on 11/15/17. Dr. Lopez considering debridement. Hx of pacemaker - would need to check compatibility for poss MRI. Discussed with Dr. Fernandez. Continue Zosyn. Venous doppler ordered of left arm. 11/16/17 Hgb remains stable, 7.8, though will need close monitoring with reports of melanotic stools last night - could still be residual from known esophageal ulcer. Continue Carafate and Protonix, soft diet. Cont ASA b/c right SFA angioplasty. Hypernatremia remains at 152; renal function also stable. K improved to 3.7. Weight is trending up; she's had positive fluid balances since admit. Poss fluid on CXR vs. pneumonia/atelectasis. Oral Bumex resumed on 11/14 - may need IV diuretic. Continue Zosyn per ID recommendations. 11/17/17 Hgb remains stable, 7.8, no further melanotic stools reported. Continue Carafate and Protonix, soft diet. Cont ASA b/c right SFA angioplasty. Hypernatremia persists, carrier fluid change to half-normal saline. Renal function stable. Fluid balance positive, increasing respiratory effort and chest x-ray with clear evidence of worsening heart failure. Supplemental dose IV Bumex given-assess response; if inadequate diuresis with 1 time dose will schedule IV Bumex q6Hrs. Very debilitated, prognosis guarded all things considered. Zosyn adjusted for renal function-depth of the wounds right foot worrisome for osteomyelitis. 11/18/17 Hgb improved to 8.5. Continue Carafate and Protonix, soft diet. I/O yesterday 950/1725 and weight has decreased to 78 kg. However, BNP [id number] yesterday and yesterday's CXR showed increased pulmonary edema. Oxygen requirements increased, 3.5L. Renal function overall stable with minimal rise in creatinine to 1.4. Hypernatremia more pronounced today at 154. Carrier IVF were changed to 1/2 NS yesterday. Discussed diuresis with Dr. Braun - will stop PO Bumex and start Bumex 1 mg IV QID. Start KDur 20 mEq WS. Continue Zosyn for right foot wound/possible osteomyelitis. WBC 11.1; afebrile. 11/19/17 Diuresis improving with 1000 UO reported overnight; weight down slightly. She's on 3.5L of oxygen. Tachypneic with audible secretions - continue Bumex Q6h. Renal function with mild elevation with BUN 24 and creatinine 1.5. Continue 1/2 NS as Na still high at 154. Continue Zosyn for right foot wound/possible osteomyelitis. WBC 11.2; afebrile. Hgb 8.1. Continue Carafate and protonix for esophageal ulcer. Respiratory acidosis present on blood gas; BiPAP initiated. 11/20/17 UO 2L yesterday; today with 1200 so far. Resp status improving - no longer tachypneic and is more alert and conversational. On 3L O2. Weight slowly trending down. Renal status stable with BUN 23 and creatinine 1.5. Na climbing; 155. D5 with K started earlier today - monitor response. Began discussion on expectations with the patient and her sister Aliya - at this time she would like to continue with current treatments, but she understands that if they continue to fail or if she wishes to withdraw care and focus on comfort, that is an option. 11/21/17 Na improved slightly to 152 on D5W with KCl. Renal function stable, BUN 23, creatinine 1.3. O2 demands improving as of last evening. Continue QID Bumex. Diarrhea x2 since last evening: has been on Zosyn since admission; clinically treating for osteomyelitis. Abdominal distention also noted today. If diarrhea continues, will check C. diff. Check CBC to f/u on anemia and leukocytosis. Left PICC line not working properly - d/w evaluation assistant - Hao Slater to withdraw PICC 3 cm, where it will still be in the subclavian. Ultimately we may need a new PICC line if pt/family wish to proceed with current cares. Consult dietary d/t malnutrition. ? parenteral nutrition. 11/22/17 Work on weaning down oxygen, baseline is 2 liters. Continue gentle diuresis with Bumex 1 milligram IV 4 times a day. Overall weight continues to trend down. Persistent hypernatremia - continue with D5W with KCl. Monitor hemoglobin carefully as patient may require additional transfusion. Zosyn antimicrobial coverage of foot wound. Continue wound care. 11/23/17 Zosyn IV for treatment of foot wound. Tylenol as needed for pain. Continue to work on weaning down oxygen, baseline is 2 liters. Bumex 1 milligram IV 4 times a day - With sodium decrease to 143, will decrease D5W with KCl to 25cc/hr. Continue to follow Hgb- slowly trending down 7.5. Replace Magnesium IV - 2 grams IV. 11/24/17 Continue Zosyn IV for treatment of foot wound. Continue wound care. Oxygenation at baseline. Creatinine showing increase to 1.4. Sodium increased to 149. Magnesium normalized at 2.1. Will stop IV Bumex and D5W. Restart home Bumex 1mg po BID. Recheck CXR tomorrow. Continue BIPAP at night to help respiratory status - on home CPAP. Continue Protonix and Carafate for ulcer. Oral drive improving.
[2017-11-24] MEDS: BUMETANIDE 1 MG TABLET PO SCH (15:24)
[2017-11-24] MEDS: INSULIN ASPART 100unit/ml INJECTION SQ SCH (17:40)
[2017-11-24] MEDS: INSULIN DETEMIR 100unit/ml INJECTION SQ SCH (21:07)
[2017-11-24] MEDS: ATORVASTATIN 40 MG TABLET PO SCH (21:08)
[2017-11-24] MEDS: MIRTAZAPINE 15 MG TABLET PO SCH (21:08)
[2017-11-25] MEDS: PIPERACILLIN/TAZOBACTAM 2.25 GM in NS 100 ML IV SCH ×4 (01:18→19:28)
[2017-11-25] MEDS: ACETAMINOPHEN 500 MG TABLET PO PRN (01:35)
[2017-11-25] MEDS: LEVOTHYROXINE 25 MCG TABLET PO SCH (06:55)
[2017-11-25] MEDS: SUCRALFATE 1gm/10ml ORAL LIQUID PO SCH ×4 (06:55→20:39)
[2017-11-25] MEDS: PANTOPRAZOLE 40 MG TABLET PO SCH ×2 (06:55→17:43)
[2017-11-25] MEDS: BUMETANIDE 1 MG TABLET PO SCH ×2 (08:52→14:43)
[2017-11-25] MEDS: INSULIN ASPART 100unit/ml INJECTION SQ SCH ×3 (08:52→17:44)
[2017-11-25] MEDS: CARVEDILOL 12.5 MG TABLET PO SCH ×2 (08:53→17:44)
[2017-11-25] MEDS: LACTOBACILLUS (15B cfu) CAPSULE PO SCH ×2 (08:53→17:44)
[2017-11-25] MEDS: ASPIRIN 81 MG CHEWABLE TABLET PO SCH (08:53)
[2017-11-25] MEDS: AMLODIPINE 2.5 MG TABLET PO SCH (08:53)
[2017-11-25] MEDS: ASCORBIC ACID 500 MG TABLET PO SCH (08:53)
[2017-11-25] MEDS: FERROUS SULFATE 324 MG TABLET PO SCH (08:53)
[2017-11-25] MEDS: LISINOPRIL 2.5 MG TABLET PO SCH (08:53)
[2017-11-25] MEDS: AMIODARONE 200 MG TABLET PO SCH (08:53)
--- NOTE | 2017-11-25 09:03 | ID Progress Note ---
Subjective Date: 11/25/17 Subjective: She reports that she feels better. Thinks there was some bleeding from her foot yesterday. Has had pain in her R foot overnight. Still has a orourke in place, doesn't think she can go without it very well. Breathing is fine. Appetite is good. Exam Vital Signs: Temperature 97.7 F 11/25/17 07:43 Pulse Rate 61 11/25/17 07:33 Respiratory Rate 20 11/25/17 07:33 Blood Pressure 150/66 H 11/25/17 07:33 Pulse Oximetry 96 11/25/17 07:33 Height/Weight/BMI: Height 1.63 m Weight 79 kg Body Mass Index 29.4 - Constitutional Present: no acute distress, well nourished, well developed - Routine HEENT Exam Head: Present: normocephalic, atraumatic Eye: Present: EOMI, PERRL ENT: Present: mucous membranes moist, oropharynx clear - Routine Neck Exam Present: supple - Routine Respiratory Exam Present: CTA bilaterally Comments: On O2 by NC - Routine Cardiovascular Exam Present: RRR - Routine Abdominal Exam Present: soft, normoactive bowel sounds, non distended, non tender - Routine Exam Comments: Orourke in place - Routine Extremities Exam Absent: cyanosis, clubbing, edema Comments: LUE PICC in place - Routine Skin Exam Absent: rash Comments: Wound plantar aspect of R medial foot, with fibrinous exudate. The surrounding erythema has resolved. She has lots of peeling skin on this foot extending up to her leg. Some ischemic-appearing wounds on R 2nd and 4th toes, painted with betadine. - Routine Neurological Exam Present: alert, oriented X3, CN II-XII intact, normal speech. Absent: motor deficit - Routine Psychiatric Exam Present: normal affect, normal thought process Results - Labs CBC & Chem 7: 11/25/17 03:39 11/25/17 03:39 Microbiology Results: Microbiology 11/10/17 22:26 Heel, Right Gram Stain - Final 11/10/17 22:26 Heel, Right Superficial Wound Culture - Final Enterococcus faecalis Achromobacter species Corynebacterium species Coag negative Staphylococcus 11/12/17 10:54 Sputum, Expectorated Gram Stain - Final 11/12/17 10:54 Sputum, Expectorated Sputum Culture - Final Normal Respiratory Chad including Yeast Present 11/12/17 10:35 Urine, Cath Orourke Urine Culture - Final No Growth After 2 Days Impression: Sepsis secondary to skin/soft tissue source Diabetic foot infection R foot with cellulitis and osteomyelitis. Wound culture 11/10/17 with Enterococcus, Achromobacter, and skin chad. S/p debridement down to bone of 1st MT on 11/15/17. PVD s/p R SFA atherectomy/[employer] 10/31/17 Recent syncopal episode anemia, macrocytic s/p EGD 11/12 with ulcer near esophageal mass, biopsy showed adenocarcinoma H/o Diabetic foot wound R 1st MT head, wound culture with MSSA, and Proteus. Bone scan 05/22/17 with abnormal uptake R 1st MT head consistent with osteomyelitis. S/p bone biopsy R 1st MT head 06/05/17 which was negative for osteomyelitis. Wound was noted to be healed on 09/25/17 and her cephalexin was stopped. Recurrent esophageal cancer, on weekly chemotherapy per Dr. Newman. H/o sepsis/septicemia with Pantoea species 2016, s/p Port removal 02/28/17. DM II, with peripheral neuropathy CKD stage III. COPD-chronic oxygen use at 2 liters Chronic atrial fibrillation s/p pacemaker implantation Hypertension GERD Hyperlipidemia Obstructive sleep apnea History of anemia and GI bleed. Allergies to cipro and sulfa (rash). UE Edema Recommendation: Recommend treating her with IV antibiotics for 6 weeks for osteomyelitis R 1st MT. Will have to clarify her allergies. My records indicate she has an allergy to cipro, but this is not listed in the hospital chart. Continue Zosyn for now. I anticipate that she might need some time at rehab. She was started on Zosyn on 11/10, so 6 weeks would tentatively go through 12/22/17.
--- NOTE | 2017-11-25 09:05 | Progress Note ---
- Date 11/25/17 Subjective: Angela was sitting up in bed, finishing a conversation on her phone. She states that she feels much better. She denies any SOA or chest pain. She is very weak but plans to try to get up with PT today. While her appetite still isn't very good, she's trying to eat at least half of her meals. She denies nausea or vomiting. She states that her bowels are working "too well" but doesn't know if she's having diarrhea. She denies pain in her foot but reports that it was oozing over the weekend. Objective Vital signs: Temperature 97.7 F 11/25/17 07:43 Pulse Rate 61 11/25/17 07:33 Respiratory Rate 20 11/25/17 07:33 Blood Pressure 150/66 H 11/25/17 07:33 Pulse Oximetry 96 11/25/17 07:33 Rhythm: Normal Sinus Rhythm Height/Weight/BMI: Height 1.63 m Weight 79 kg Body Mass Index 29.4 - Constitutional Present: no acute distress, well nourished, well developed - Routine HEENT Exam Head: Present: normocephalic Eye: Present: PERRL. Absent: conjunctival icterus, scleral injection ENT: Present: mucous membranes moist, oropharynx clear - Routine Respiratory Exam Present: decreased breath sounds (b/l bases) - Routine Cardiovascular Exam Present: RRR, S1, S2 - Routine Abdominal Exam Present: soft, normoactive bowel sounds, non distended, non tender - Routine Extremities Exam Present: no edema Comments: right foot - gauze dressing intact multiple abrasions noted to dorsal surface of toes to right foot - Routine Skin Exam Present: dry, pallor (improving), warm - Routine Neurological Exam Present: alert, oriented X3, CN II-XII intact, normal speech. Absent: altered mental status, facial asymmetry - Routine Psychiatric Exam Present: normal affect, normal thought process, cooperative Results - Labs CBC & Chem 7: 11/25/17 03:39 11/25/17 03:39 Microbiology Results: Microbiology 11/10/17 22:26 Heel, Right Gram Stain - Final 11/10/17 22:26 Heel, Right Superficial Wound Culture - Final Enterococcus faecalis Achromobacter species Corynebacterium species Coag negative Staphylococcus 11/12/17 10:54 Sputum, Expectorated Gram Stain - Final 11/12/17 10:54 Sputum, Expectorated Sputum Culture - Final Normal Respiratory Rosie including Yeast Present 11/12/17 10:35 Urine, Cath Longoria Urine Culture - Final No Growth After 2 Days Assessment and Plan (1) Acute anemia Current visit: Yes Status: Acute Assessment and Plan: Impression: Acute anemia-hemoglobin was 7.1 at the end of October and she received 1 unit of blood. She received 1 unit PRBCs 11/11/2017 with hemoglobin improving to 8.0. Per previous lab at [facility], hemoglobin has been around the 10 range from June to September of this year. Upper GI bleed secondary to esophageal ulcer - EGD 11/12/2017 Esophageal cancer with current chemotherapy on hold Sepsis, right lower extremity wound-resolved Diabetic foot ulcer with skin and soft tissue infection-on Zosyn 11/10-present, and vancomycin 11/10-11/15. Type II DM PAD -On October 31 she underwent right SFA atherectomy and percutaneous angioplasty by Dr. Mcghee at [place]. discussed with Dr. Hernandez and he would prefer that she stay on aspirin and Plavix, but if concerns for acute GI bleed he is okay with discontinuation of Plavix. Acute on chronic kidney injury, baseline creatinine approximately 1.3-was 1.6- 1.7 at the end of October. Creatinine has improved to baseline. Heart failure, preserved ejection fraction\\VHD\\known PFO Atrial fibrillation-currently sinus rhythm Poor vascular access-PICC line placed 11/10/2017 History of polymicrobial, MDR infection COPD with chronic hypoxemia-on 2 L Acute bronchitis-improved Recent UTI-resolved Hypovolemia-resolved Hypernatremia-present on admission Metabolic acidosis-resolved Immunocompromise secondary to chemotherapy Syncope prior to admission with generalized weakness Gross Hematuria-resolved Mild acute respiratory failure requiring 3 L of oxygen-normally on 2 L of oxygen daily Possible fluid overload Hypoalbuminemia/malnutrition Plan Continue Zosyn IV for treatment of foot wound. Continue wound care. WBC normal at 7.4. Creatinine stable from yesterday at 1.4. Sodium improved to 147. Continue oral Bumex. Weight increasing but respiratory status is stable - monitor closely - high risk for fluid overload. CXR this am personally reviewed - pulmonary edema improving with better aeration in upper lobes. Continue BiPAP HS. Hgb decreased to 7.3 though she's asymptomatic. Check stool for occult blood. Stool frequency increasing, with 2 watery bowel movements yesterday. She's not on any stool softeners/laxatives. If diarrhea persists, check for C. diff. GI Prophylaxis: Protonix Resuscitation Status: Do Not Resuscitate - Time spent with patient Time with patient PN: 25 minutes - Physician Narrative Physician: Vishnu Casiano MD Narrative: Date: 11/25/17 Time: 1624 Have independently interviewed and examined pt. Chart reviewed. Case discussed with my LAMP INSPECTOR. Care plan developed with supervision; agree with above. Doing better today. Breathing feeling okay-easier than past several days. Maintains on her home O2 flow. Happy that she was able to have a hamburger today -tasted well. No ab pain. Bowels moving. Did work with therapy today. Lungs: decreased, faint crackles; no distress CV: regular AB: soft nt/nd MSE : awake alert appropriate Plan: Continue with Zosyn per ID recommendation. Continue Culturelle for bowel protection. Encourage therapy. Monitor lab. Hospital Course Summary Disclaimer: The visit summary below is not to be considered part of the above Progress Note. Hospital Course: Impression: 1. Acute anemia 2. Suspected GI bleed 3. Esophageal cancer with current chemotherapy 4. Sepsis, suspected due to right lower extremity wound 5. Chronic right lower extremity wound with exacerbation of infection 6. PAD with recent ballooning and/or stenting of the RLE vascular system 7: Acute on chronic kidney injury, baseline creatinine approximately 1.3 8. Heart failure, preserved ejection fraction\\VHD\\known PFO 8. Atrial fibrillation 9. Poor vascular access 10. History of polymicrobial, MDR infection 11. COPD with chronic hypoxemia 12. Acute bronchitis 13. Recent UTI 14. Hypovolemia Plan: Admit, inpatient, ICU. Admitting: Dr. Carrillo. PCP: Dr. Rachel Dietz Patient will receive a single unit of blood now. Per blood bank, she usually receives leuko-reduced, irradiated blood. We will obtain additional H&H at around 6 hours from time of admission. I suspect that she is likely more anemic than her labs reveal due to significant hypovolemia. We may need additional transfusion this evening. Protonix drip per protocol. Have a PICC line placed due to poor vascular access. (I discussed this with the patient, risk & benefits discussed, she is in agreement to have PICC line placed ) Hold aspirin and Plavix this evening. We will need to obtain records from [facility] regarding specific procedures in the morning. Consult Dr. Lopez in the morning for further evaluation of GI bleeding. Check INR now. We will hold her antihypertensive currently. She is at high risk for hemodynamic instability. Hold diuretics. Continue amiodarone to help with rhythm control. She is not on full strength anticoagulation. Again, we will need to hold her aspirin and Plavix this evening, and further addressed in the morning. She is followed routinely by Dr. John Leyva. Monitor for fluid overload due to known history of heart failure and valvular heart disease. She has recently been on chemotherapy, therefore is immunocompromised. She also has a history of MDR infections. We'll consult Dr. Afua Fernandez in the morning. Start on Zosyn and vancomycin. Blood cultures have been drawn in the emergency department. Obtain UA, wound cultures, and sputum cultures. Most recent urine cultures have been reviewed. Check lactate now and recheck per protocol. Continue O2 per home regimen. Restart breathing treatments. DVT prophylaxis: Will hold off for now. Due to very recent vascular stenting, I do not feel comfortable placing SCDs. No blood thinners due to known bleeding. CODE STATUS: I did discuss this with the patient. She remains a DO NOT RESUSCITATE as documented in her past medical history. Extensive time was spent this evening, greater than 90 minutes, and review of the medical record, exam, discussion with care team members, etc. Patient is very ill, will require close monitoring. 11/11/2017 The patient's hemoglobin did improve after 1 unit of blood. She is feeling just a little bit stronger. Sodium has increased overnight. She still has metabolic acidosis with bicarbonate of 18. Lactate has been normal 3. Will change IV fluids to D5 W with 75 mEq of sodium bicarbonate. Continue to monitor renal function closely. Regarding anemia and concern for possible GI bleed, hemoglobin had been in the 10 range until at least September of this year. When she went to [facility] for procedure at the end of October, her hemoglobin was 7.1 and she was given 1 unit of blood. Hemoglobin at discharge was 8.0. She was admitted yesterday with heme positive stool but did not have any melena or debbie hematic usually a. She had been on aspirin and Plavix for recent angioplasty of her right lower extremity. Her motion picture set grip prefers that she would stay on aspirin and Plavix, but Plavix could be discontinued if there were significant concerns for GI bleed. Continue on Protonix drip for now.Continue to hold aspirin and Plavix for now. We'll make the patient nothing by mouth now in case she does need EGD regarding anemia and heme positive stool. Dr. Lopez was consulted regarding infected diabetic foot wound in her right lower extremity and regarding possible GI bleed with known esophageal cancer. Dr. Fernandez was consulted regarding the patient's diabetic foot wound. Will discuss patient's anemia, possible GI bleed and esophageal cancer with Dr. Newman. Recheck CBC, renal panel and magnesium tomorrow. Discussed with Dr. Lopez, Dr. Fernandez, and Dr. Hernandez. 11/12/2017 The patient's hemoglobin has been stable for the last 24 hours. Hemoglobin is currently 7.9. She received 1 unit of blood on the evening of admission. She is currently nothing by mouth for EGD around noon today. Blood pressures have been elevated today and she would likely benefit from restarting amlodipine and carvedilol. Lisinopril and Bumex has been on hold for acute kidney injury. Could consider restarting these soon as well. Regarding hematuria, will check urinalysis. Continue incentive spirometer to help with mild acute on chronic hypoxic respiratory failure. Consider DC IV fluids after ETT depending upon results We'll determine whether or not restart aspirin and/or Plavix after EGD Continue Protonix drip for now. Continue off of aspirin and Plavix for now. Continue on vancomycin and Zosyn for infected diabetic foot wound. Recheck CBC, renal panel tomorrow. Repeat chest x-ray tomorrow if not down to baseline oxygen level. Discussed with the patient's nurse and Dr. Lopez. 11/13/17 The patient's hemoglobin has been stable for the last 48 hours hours. Hemoglobin is currently 8.1. She received 1 unit of blood on the evening of admission. EGD revealed an esophageal ulcer. No active bleeding. Discussed with Dr. Lopez. Will start aspirin 81 mg daily because of her recent angioplasty of right SFA. Add Carafate slurry. Change Protonix to by mouth. Blood pressures doing better after restarting amlodipine and carvedilol. Acute kidney injury has resolved. I&O is +5 L. We'll restart Bumex. Continue to hold lisinopril at this time. DC IV fluids and encourage by mouth fluid intake. This should help with hypernatremia. Supplements 3 times a day with meals for hypoalbuminemia. Discussed diabetic foot ulcers with skin and soft tissue infection with Dr. Lopez. He wants to wait and see how she does with Iodosorb treatment and will consider wound exploration later this week. If there are signs of osteo- myelitis during exploration, he would likely check an MRI at that point. Discussed skin and soft tissue infection with Dr. Fernandez today as well. Titrate O2 if able. Heel protector to the left foot. 11/14/17 The patient's hemoglobin has been stable for the past 3 days. Hemoglobin is currently 7.7. She received 1 unit of blood on the evening of admission. EGD revealed an esophageal ulcer. No active bleeding. Aspirin 81 mg started yesterday because of her recent angioplasty of right SFA. Continue Carafate slurry and Protonix orally for esophageal ulcer Blood pressures doing better after restarting amlodipine and carvedilol. Consider restarting lisinopril Acute kidney injury has resolved. I&O is +5 L. We'll restart oral Bumex. We'll check a chest x-ray now, possible IV diuresis. Supplements 3 times a day with meals for hypoalbuminemia. Discussed diabetic foot ulcers with skin and soft tissue infection with Dr. Lopez. He wants to wait and see how she does with Iodosorb treatment and will consider wound exploration later this week. If there are signs of osteo- myelitis during exploration, he would likely check an MRI at that point. 11/15/17 Hgb remains stable, 7.9. Continue Carafate and Protonix, soft diet, for known esophageal ulcer. Cont ASA b/c right SFA angioplasty. Bumex was resumed yesterday (resumed BID, at home only takes daily) - hypernatremia remains stable at 152; renal function also stable. K decreased to 3.2 - give KDur 40 mEq x1. Longoria replaced on 11/15/17. Dr. Lopez considering debridement. Hx of pacemaker - would need to check compatibility for poss MRI. Discussed with Dr. Fernandez. Continue Zosyn. Venous doppler ordered of left arm. 11/16/17 Hgb remains stable, 7.8, though will need close monitoring with reports of melanotic stools last night - could still be residual from known esophageal ulcer. Continue Carafate and Protonix, soft diet. Cont ASA b/c right SFA angioplasty. Hypernatremia remains at 152; renal function also stable. K improved to 3.7. Weight is trending up; she's had positive fluid balances since admit. Poss fluid on CXR vs. pneumonia/atelectasis. Oral Bumex resumed on 11/14 - may need IV diuretic. Continue Zosyn per ID recommendations. 11/17/17 Hgb remains stable, 7.8, no further melanotic stools reported. Continue Carafate and Protonix, soft diet. Cont ASA b/c right SFA angioplasty. Hypernatremia persists, carrier fluid change to half-normal saline. Renal function stable. Fluid balance positive, increasing respiratory effort and chest x-ray with clear evidence of worsening heart failure. Supplemental dose IV Bumex given-assess response; if inadequate diuresis with 1 time dose will schedule IV Bumex q6Hrs. Very debilitated, prognosis guarded all things considered. Zosyn adjusted for renal function-depth of the wounds right foot worrisome for osteomyelitis. 11/18/17 Hgb improved to 8.5. Continue Carafate and Protonix, soft diet. I/O yesterday 950/1725 and weight has decreased to 78 kg. However, BNP 47066 yesterday and yesterday's CXR showed increased pulmonary edema. Oxygen requirements increased, 3.5L. Renal function overall stable with minimal rise in creatinine to 1.4. Hypernatremia more pronounced today at 154. Carrier IVF were changed to 1/2 NS yesterday. Discussed diuresis with Dr. Bruan - will stop PO Bumex and start Bumex 1 mg IV QID. Start KDur 20 mEq WS. Continue Zosyn for right foot wound/possible osteomyelitis. WBC 11.1; afebrile. 11/19/17 Diuresis improving with 1000 UO reported overnight; weight down slightly. She's on 3.5L of oxygen. Tachypneic with audible secretions - continue Bumex Q6h. Renal function with mild elevation with BUN 24 and creatinine 1.5. Continue 1/2 NS as Na still high at 154. Continue Zosyn for right foot wound/possible osteomyelitis. WBC 11.2; afebrile. Hgb 8.1. Continue Carafate and protonix for esophageal ulcer. Respiratory acidosis present on blood gas; BiPAP initiated. 11/20/17 UO 2L yesterday; today with 1200 so far. Resp status improving - no longer tachypneic and is more alert and conversational. On 3L O2. Weight slowly trending down. Renal status stable with BUN 23 and creatinine 1.5. Na climbing; 155. D5 with K started earlier today - monitor response. Began discussion on expectations with the patient and her sister Aliya - at this time she would like to continue with current treatments, but she understands that if they continue to fail or if she wishes to withdraw care and focus on comfort, that is an option. 11/21/17 Na improved slightly to 152 on D5W with KCl. Renal function stable, BUN 23, creatinine 1.3. O2 demands improving as of last evening. Continue QID Bumex. Diarrhea x2 since last evening: has been on Zosyn since admission; clinically treating for osteomyelitis. Abdominal distention also noted today. If diarrhea continues, will check C. diff. Check CBC to f/u on anemia and leukocytosis. Left PICC line not working properly - d/w anesthesiology faculty - Hao Slater to withdraw PICC 3 cm, where it will still be in the subclavian. Ultimately we may need a new PICC line if pt/family wish to proceed with current cares. Consult dietary d/t malnutrition. ? parenteral nutrition. 11/22/17 Work on weaning down oxygen, baseline is 2 liters. Continue gentle diuresis with Bumex 1 milligram IV 4 times a day. Overall weight continues to trend down. Persistent hypernatremia - continue with D5W with KCl. Monitor hemoglobin carefully as patient may require additional transfusion. Zosyn antimicrobial coverage of foot wound. Continue wound care. 11/23/17 Zosyn IV for treatment of foot wound. Tylenol as needed for pain. Continue to work on weaning down oxygen, baseline is 2 liters. Bumex 1 milligram IV 4 times a day - With sodium decrease to 143, will decrease D5W with KCl to 25cc/hr. Continue to follow Hgb- slowly trending down 7.5. Replace Magnesium IV - 2 grams IV. 11/24/17 Continue Zosyn IV for treatment of foot wound. Continue wound care. Oxygenation at baseline. Creatinine showing increase to 1.4. Sodium increased to 149. Magnesium normalized at 2.1. Will stop IV Bumex and D5W. Restart home Bumex 1mg po BID. 11/25/17 Continue Zosyn IV for treatment of foot wound. Continue wound care. WBC normal at 7.4. Creatinine stable from yesterday at 1.4. Sodium improved to 147. Continue oral Bumex. Weight increasing but respiratory status is stable - monitor closely - high risk for fluid overload. CXR this am personally reviewed - pulmonary edema improving with better aeration in upper lobes. Continue BiPAP HS. Hgb decreased to 7.3 though she's asymptomatic. Check stool for occult blood. Stool frequency increasing, with 2 watery bowel movements yesterday. She's not on any stool softeners/laxatives. If diarrhea persists, check for C. diff.
[2017-11-25] MEDS: ALBUTEROL 2.5mg/3ml (0.083%) NEB AEROSOL SCH ×2 (09:55→19:48)
--- NOTE | 2017-11-25 10:16 | XRay Report ---
EXAM: XR chest 1V COMPARISON: Chest x-ray dated 11/20/2017. HISTORY: F/U pulm edema . FINDINGS: Mildly improved diffuse bilateral airspace disease evident with stable small pleural effusions. There is no pneumothorax. The cardiac silhouette is stable. No mediastinal abnormality is present. Stable left-sided pacemaker and leads. IMPRESSION: Improved aeration of the lungs with persistent bilateral airspace disease and small pleural effusions. .
[2017-11-25] MEDS: INSULIN ASPART 100unit/ml INJECTION SQ PRN ×2 (14:44→20:40)
[2017-11-25] MEDS: ATORVASTATIN 40 MG TABLET PO SCH (20:39)
[2017-11-25] MEDS: MIRTAZAPINE 15 MG TABLET PO SCH (20:39)
[2017-11-25] MEDS: INSULIN DETEMIR 100unit/ml INJECTION SQ SCH (20:40)
[2017-11-26] MEDS: PIPERACILLIN/TAZOBACTAM 2.25 GM in NS 100 ML IV SCH ×4 (01:35→18:08)
[2017-11-26] MEDS: NS FLUSH BAG 500ml IV PRN (01:39)
[2017-11-26] MEDS: LEVOTHYROXINE 25 MCG TABLET PO SCH (06:04)
[2017-11-26] MEDS: SUCRALFATE 1gm/10ml ORAL LIQUID PO SCH ×4 (06:05→20:54)
[2017-11-26] MEDS: PANTOPRAZOLE 40 MG TABLET PO SCH ×2 (06:05→18:04)
[2017-11-26] MEDS: FERROUS SULFATE 324 MG TABLET PO SCH (08:49)
[2017-11-26] MEDS: BUMETANIDE 1 MG TABLET PO SCH ×2 (08:49→13:42)
[2017-11-26] MEDS: LISINOPRIL 2.5 MG TABLET PO SCH (08:49)
[2017-11-26] MEDS: CARVEDILOL 12.5 MG TABLET PO SCH ×2 (08:50→18:04)
[2017-11-26] MEDS: ASCORBIC ACID 500 MG TABLET PO SCH (08:50)
[2017-11-26] MEDS: AMLODIPINE 2.5 MG TABLET PO SCH (08:50)
[2017-11-26] MEDS: LACTOBACILLUS (15B cfu) CAPSULE PO SCH ×2 (08:50→18:04)
[2017-11-26] MEDS: INSULIN ASPART 100unit/ml INJECTION SQ SCH ×3 (08:50→18:04)
[2017-11-26] MEDS: ASPIRIN 81 MG CHEWABLE TABLET PO SCH (08:50)
[2017-11-26] MEDS: AMIODARONE 200 MG TABLET PO SCH (08:50)
[2017-11-26] MEDS: ALBUTEROL 2.5mg/3ml (0.083%) NEB AEROSOL SCH ×2 (09:01→20:41)
--- NOTE | 2017-11-26 09:25 | Progress Note ---
- Date 11/26/17 Subjective: Angela is seen today while resting in bed and awakens easily with soft voice stimuli. She denies any complaints or concerns currently. She reports that she did have some nausea this morning without vomiting but it has since resolved. She denies any fevers, chills, chest pain, increased shortness of breath, abdominal pain, vomiting or dysuria. She reports that her stools are loose and soft but does not know if they are watery. She is breathing easily on her baseline home oxygen at 2L. Appetite is stable. She was seen by Dr. 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 Slight increase in hypernatremia ( Na 149). Hemoglobin stable at 7.9. Objective Vital signs: Temperature 97.5 F 11/26/17 04:00 Pulse Rate 65 11/26/17 08:00 Respiratory Rate 16 11/26/17 09:01 Blood Pressure 158/67 H 11/26/17 07:19 Pulse Oximetry 97 11/26/17 09:01 Rhythm: Normal Sinus Rhythm Height/Weight/BMI: Height 5 ft 4 in Weight 169 lb 12.095 oz Body Mass Index 29.4 Comments: Resting in bed. Awakens easily with soft voice stimuli. - Constitutional Present: no acute distress, well nourished, well developed, cooperative - Routine HEENT Exam Head: Present: normocephalic, atraumatic Eye: Present: PERRL. Absent: conjunctival icterus ENT: Present: mucous membranes moist - Routine Respiratory Exam Present: CTA bilaterally. Absent: respiratory distress, wheezes Comments: Breathing easily on home baseline oxygen at 2L without cough or conversational dyspnea. - Routine Cardiovascular Exam Present: RRR, S1, S2 - Routine Abdominal Exam Present: soft, normoactive bowel sounds, non tender - Routine Extremities Exam Present: no edema, pulses intact Comments: Heel protector boots in place and bandage to right foot in place. Bandage not removed on exam. No apparent erythema or red streaking up lower extremities. Bandage clean, dry and intact. - Routine Musculoskeletal Exam Musculoskeletal: Present: no clubbing or cyanosis - Routine Skin Exam Present: dry, warm Comments: Afebrile. - Routine Neurological Exam Present: alert, moving all extremities, hearing grossly intact, normal speech - Routine Lymphatic Exam Lymphatic: Absent: lymphedema - Routine Psychiatric Exam Present: cooperative Results - Labs CBC & Chem 7: 11/26/17 03:52 11/26/17 03:52 Microbiology Results: Microbiology 11/10/17 22:26 Heel, Right Gram Stain - Final 11/10/17 22:26 Heel, Right Superficial Wound Culture - Final Enterococcus faecalis Achromobacter species Corynebacterium species Coag negative Staphylococcus 11/12/17 10:54 Sputum, Expectorated Gram Stain - Final 11/12/17 10:54 Sputum, Expectorated Sputum Culture - Final Normal Respiratory Rosie including Yeast Present 11/12/17 10:35 Urine, Cath Longoria Urine Culture - Final No Growth After 2 Days Assessment and Plan (1) Acute anemia Current visit: Yes Status: Acute Assessment and Plan: Impression: Acute anemia-hemoglobin was 7.1 at the end of October and she received 1 unit of blood. She received 1 unit PRBCs 11/11/2017 with hemoglobin improving to 8.0. Per previous lab at [facility], hemoglobin has been around the 10 range from June to September of this year. Upper GI bleed secondary to esophageal ulcer - EGD 11/12/2017 Esophageal cancer with current chemotherapy on hold Sepsis, right lower extremity wound-resolved Diabetic foot ulcer with skin and soft tissue infection-on Zosyn 11/10-present, and vancomycin 11/10-11/15. Type II DM PAD -On October 31 she underwent right SFA atherectomy and percutaneous angioplasty by Dr. Mcghee at [place]. discussed with Dr. Hernandez and he would prefer that she stay on aspirin and Plavix, but if concerns for acute GI bleed he is okay with discontinuation of Plavix. Acute on chronic kidney injury, baseline creatinine approximately 1.3-was 1.6- 1.7 at the end of October. Creatinine has improved to baseline. Heart failure, preserved ejection fraction\VHD\known PFO Atrial fibrillation-currently sinus rhythm Poor vascular access-PICC line placed 11/10/2017 History of polymicrobial, MDR infection COPD with chronic hypoxemia-on 2 L Acute bronchitis-improved Recent UTI-resolved Hypovolemia-resolved Hypernatremia-present on admission Metabolic acidosis-resolved Immunocompromise secondary to chemotherapy Syncope prior to admission with generalized weakness Gross Hematuria-resolved Mild acute respiratory failure requiring 3 L of oxygen-normally on 2 L of oxygen daily Possible fluid overload Hypoalbuminemia/malnutrition Plan Continue Zosyn IV for treatment of osteomyelitis of right 1st metatarsal through 12/22/[address] Fernandez. Continue wound care. WBC stable at 8.2 and afebrile. Slight increase in Na at 149 with slight increase in SCr at 1.5. Weight down. Respiratory status stable and breathing easily at home baseline of 2L NC. Continue to monitor closely. Continue oral Bumex. Monitor closely as high risk for fluid overload. Continue BiPAP HS. CXR on 11/25 revealed improved aeration of lungs with persistent bilateral airspace disease and small pleural effusions. Hgb stable at 7.9 - remains asymptomatic. Fecal occult negative. Suspect anemia may be due to CKD stage III. Patient continues to report soft stools but is unsure of watery or diarrhea stools. Nursing denies diarrhea. Continue to monitor. May consider stool culture given recent antibiotics for c.diff. Continue Culturelle for bowel protection. Encourage participation in therapies for strengthening and improvement in functional abilities. Recheck labs in AM to monitor blood counts, electrolytes and renal function. DVT Prophylaxis: SCD's GI Prophylaxis: Protonix Resuscitation Status: Do Not Resuscitate - Time spent with patient Time with patient PN: 30 minutes - Physician Narrative Physician: Vishnu Casiano MD Narrative: Date: 11/26/17 Time: 1426 Have independently interviewed & examined pt. Chart reviewed. Case discussed with CM & my PA. Care plan developed with my supervision; agree with above. Doing well this afternoon. Worked with therapy-able to stand and take a few steps. Breathing stable. Tolerating BiPAP at night. Appetite stable. Lungs: decreased, no crackles/wheeze/distress CV: regular AB: soft nt MSE: awake alert appropriate Plan: Continue with Zosyn for antimicrobial coverage. Encourage therapy. Continue to monitor hemoglobin-transfusion not indicated at this time. Hospital Course Summary Disclaimer: The visit summary below is not to be considered part of the above Progress Note. Hospital Course: Impression: 1. Acute anemia 2. Suspected GI bleed 3. Esophageal cancer with current chemotherapy 4. Sepsis, suspected due to right lower extremity wound 5. Chronic right lower extremity wound with exacerbation of infection 6. PAD with recent ballooning and/or stenting of the RLE vascular system 7: Acute on chronic kidney injury, baseline creatinine approximately 1.3 8. Heart failure, preserved ejection fraction\VHD\known PFO 8. Atrial fibrillation 9. Poor vascular access 10. History of polymicrobial, MDR infection 11. COPD with chronic hypoxemia 12. Acute bronchitis 13. Recent UTI 14. Hypovolemia Plan: Admit, inpatient, ICU. Admitting: Dr. Carrillo. PCP: Dr. Rachel Dietz Patient will receive a single unit of blood now. Per blood bank, she usually receives leuko-reduced, irradiated blood. We will obtain additional H&H at around 6 hours from time of admission. I suspect that she is likely more anemic than her labs reveal due to significant hypovolemia. We may need additional transfusion this evening. Protonix drip per protocol. Have a PICC line placed due to poor vascular access. (I discussed this with the patient, risk & benefits discussed, she is in agreement to have PICC line placed ) Hold aspirin and Plavix this evening. We will need to obtain records from [facility] regarding specific procedures in the morning. Consult Dr. Lopez in the morning for further evaluation of GI bleeding. Check INR now. We will hold her antihypertensive currently. She is at high risk for hemodynamic instability. Hold diuretics. Continue amiodarone to help with rhythm control. She is not on full strength anticoagulation. Again, we will need to hold her aspirin and Plavix this evening, and further addressed in the morning. She is followed routinely by Dr. John Leyva. Monitor for fluid overload due to known history of heart failure and valvular heart disease. She has recently been on chemotherapy, therefore is immunocompromised. She also has a history of MDR infections. We'll consult Dr. Afua Fernandez in the morning. Start on Zosyn and vancomycin. Blood cultures have been drawn in the emergency department. Obtain UA, wound cultures, and sputum cultures. Most recent urine cultures have been reviewed. Check lactate now and recheck per protocol. Continue O2 per home regimen. Restart breathing treatments. DVT prophylaxis: Will hold off for now. Due to very recent vascular stenting, I do not feel comfortable placing SCDs. No blood thinners due to known bleeding. CODE STATUS: I did discuss this with the patient. She remains a DO NOT RESUSCITATE as documented in her past medical history. Extensive time was spent this evening, greater than 90 minutes, and review of the medical record, exam, discussion with care team members, etc. Patient is very ill, will require close monitoring. 11/11/2017 The patient's hemoglobin did improve after 1 unit of blood. She is feeling just a little bit stronger. Sodium has increased overnight. She still has metabolic acidosis with bicarbonate of 18. Lactate has been normal 3. Will change IV fluids to D5 W with 75 mEq of sodium bicarbonate. Continue to monitor renal function closely. Regarding anemia and concern for possible GI bleed, hemoglobin had been in the 10 range until at least September of this year. When she went to [place] for procedure at the end of October, her hemoglobin was 7.1 and she was given 1 unit of blood. Hemoglobin at discharge was 8.0. She was admitted yesterday with heme positive stool but did not have any melena or debbie hematic usually a. She had been on aspirin and Plavix for recent angioplasty of her right lower extremity. Her tile mechanic helper prefers that she would stay on aspirin and Plavix, but Plavix could be discontinued if there were significant concerns for GI bleed. Continue on Protonix drip for now.Continue to hold aspirin and Plavix for now. We'll make the patient nothing by mouth now in case she does need EGD regarding anemia and heme positive stool. Dr. Lopez was consulted regarding infected diabetic foot wound in her right lower extremity and regarding possible GI bleed with known esophageal cancer. Dr. Fernandez was consulted regarding the patient's diabetic foot wound. Will discuss patient's anemia, possible GI bleed and esophageal cancer with Dr. Newman. Recheck CBC, renal panel and magnesium tomorrow. Discussed with Dr. Lopez, Dr. Fernandez, and Dr. Hernandez. 11/12/2017 The patient's hemoglobin has been stable for the last 24 hours. Hemoglobin is currently 7.9. She received 1 unit of blood on the evening of admission. She is currently nothing by mouth for EGD around noon today. Blood pressures have been elevated today and she would likely benefit from restarting amlodipine and carvedilol. Lisinopril and Bumex has been on hold for acute kidney injury. Could consider restarting these soon as well. Regarding hematuria, will check urinalysis. Continue incentive spirometer to help with mild acute on chronic hypoxic respiratory failure. Consider DC IV fluids after ETT depending upon results We'll determine whether or not restart aspirin and/or Plavix after EGD Continue Protonix drip for now. Continue off of aspirin and Plavix for now. Continue on vancomycin and Zosyn for infected diabetic foot wound. Recheck CBC, renal panel tomorrow. Repeat chest x-ray tomorrow if not down to baseline oxygen level. Discussed with the patient's nurse and Dr. Lopez. 11/13/17 The patient's hemoglobin has been stable for the last 48 hours hours. Hemoglobin is currently 8.1. She received 1 unit of blood on the evening of admission. EGD revealed an esophageal ulcer. No active bleeding. Discussed with Dr. Lopez. Will start aspirin 81 mg daily because of her recent angioplasty of right SFA. Add Carafate slurry. Change Protonix to by mouth. Blood pressures doing better after restarting amlodipine and carvedilol. Acute kidney injury has resolved. I&O is +5 L. We'll restart Bumex. Continue to hold lisinopril at this time. DC IV fluids and encourage by mouth fluid intake. This should help with hypernatremia. Supplements 3 times a day with meals for hypoalbuminemia. Discussed diabetic foot ulcers with skin and soft tissue infection with Dr. Lopez. He wants to wait and see how she does with Iodosorb treatment and will consider wound exploration later this week. If there are signs of osteo- myelitis during exploration, he would likely check an MRI at that point. Discussed skin and soft tissue infection with Dr. Fernandez today as well. Titrate O2 if able. Heel protector to the left foot. 11/14/17 The patient's hemoglobin has been stable for the past 3 days. Hemoglobin is currently 7.7. She received 1 unit of blood on the evening of admission. EGD revealed an esophageal ulcer. No active bleeding. Aspirin 81 mg started yesterday because of her recent angioplasty of right SFA. Continue Carafate slurry and Protonix orally for esophageal ulcer Blood pressures doing better after restarting amlodipine and carvedilol. Consider restarting lisinopril Acute kidney injury has resolved. I&O is +5 L. We'll restart oral Bumex. We'll check a chest x-ray now, possible IV diuresis. Supplements 3 times a day with meals for hypoalbuminemia. Discussed diabetic foot ulcers with skin and soft tissue infection with Dr. Lopez. He wants to wait and see how she does with Iodosorb treatment and will consider wound exploration later this week. If there are signs of osteo- myelitis during exploration, he would likely check an MRI at that point. 11/15/17 Hgb remains stable, 7.9. Continue Carafate and Protonix, soft diet, for known esophageal ulcer. Cont ASA b/c right SFA angioplasty. Bumex was resumed yesterday (resumed BID, at home only takes daily) - hypernatremia remains stable at 152; renal function also stable. K decreased to 3.2 - give KDur 40 mEq x1. Longoria replaced on 11/15/17. Dr. Lopez considering debridement. Hx of pacemaker - would need to check compatibility for poss MRI. Discussed with Dr. Fernandez. Continue Zosyn. Venous doppler ordered of left arm. 11/16/17 Hgb remains stable, 7.8, though will need close monitoring with reports of melanotic stools last night - could still be residual from known esophageal ulcer. Continue Carafate and Protonix, soft diet. Cont ASA b/c right SFA angioplasty. Hypernatremia remains at 152; renal function also stable. K improved to 3.7. Weight is trending up; she's had positive fluid balances since admit. Poss fluid on CXR vs. pneumonia/atelectasis. Oral Bumex resumed on 11/14 - may need IV diuretic. Continue Zosyn per ID recommendations. 11/17/17 Hgb remains stable, 7.8, no further melanotic stools reported. Continue Carafate and Protonix, soft diet. Cont ASA b/c right SFA angioplasty. Hypernatremia persists, carrier fluid change to half-normal saline. Renal function stable. Fluid balance positive, increasing respiratory effort and chest x-ray with clear evidence of worsening heart failure. Supplemental dose IV Bumex given-assess response; if inadequate diuresis with 1 time dose will schedule IV Bumex q6Hrs. Very debilitated, prognosis guarded all things considered. Zosyn adjusted for renal function-depth of the wounds right foot worrisome for osteomyelitis. 11/18/17 Hgb improved to 8.5. Continue Carafate and Protonix, soft diet. I/O yesterday 950/1725 and weight has decreased to 78 kg. However, BNP 26000 yesterday and yesterday's CXR showed increased pulmonary edema. Oxygen requirements increased, 3.5L. Renal function overall stable with minimal rise in creatinine to 1.4. Hypernatremia more pronounced today at 154. Carrier IVF were changed to 1/2 NS yesterday. Discussed diuresis with Dr. Braun - will stop PO Bumex and start Bumex 1 mg IV QID. Start KDur 20 mEq WS. Continue Zosyn for right foot wound/possible osteomyelitis. WBC 11.1; afebrile. 11/19/17 Diuresis improving with 1000 UO reported overnight; weight down slightly. She's on 3.5L of oxygen. Tachypneic with audible secretions - continue Bumex Q6h. Renal function with mild elevation with BUN 24 and creatinine 1.5. Continue 1/2 NS as Na still high at 154. Continue Zosyn for right foot wound/possible osteomyelitis. WBC 11.2; afebrile. Hgb 8.1. Continue Carafate and protonix for esophageal ulcer. Respiratory acidosis present on blood gas; BiPAP initiated. 11/20/17 UO 2L yesterday; today with 1200 so far. Resp status improving - no longer tachypneic and is more alert and conversational. On 3L O2. Weight slowly trending down. Renal status stable with BUN 23 and creatinine 1.5. Na climbing; 155. D5 with K started earlier today - monitor response. Began discussion on expectations with the patient and her sister Aliya - at this time she would like to continue with current treatments, but she understands that if they continue to fail or if she wishes to withdraw care and focus on comfort, that is an option. 11/21/17 Na improved slightly to 152 on D5W with KCl. Renal function stable, BUN 23, creatinine 1.3. O2 demands improving as of last evening. Continue QID Bumex. Diarrhea x2 since last evening: has been on Zosyn since admission; clinically treating for osteomyelitis. Abdominal distention also noted today. If diarrhea continues, will check C. diff. Check CBC to f/u on anemia and leukocytosis. Left PICC line not working properly - d/w pharmacist helper - Hao Slater to withdraw PICC 3 cm, where it will still be in the subclavian. Ultimately we may need a new PICC line if pt/family wish to proceed with current cares. Consult dietary d/t malnutrition. ? parenteral nutrition. 11/22/17 Work on weaning down oxygen, baseline is 2 liters. Continue gentle diuresis with Bumex 1 milligram IV 4 times a day. Overall weight continues to trend down. Persistent hypernatremia - continue with D5W with KCl. Monitor hemoglobin carefully as patient may require additional transfusion. Zosyn antimicrobial coverage of foot wound. Continue wound care. 11/23/17 Zosyn IV for treatment of foot wound. Tylenol as needed for pain. Continue to work on weaning down oxygen, baseline is 2 liters. Bumex 1 milligram IV 4 times a day - With sodium decrease to 143, will decrease D5W with KCl to 25cc/hr. Continue to follow Hgb- slowly trending down 7.5. Replace Magnesium IV - 2 grams IV. 11/24/17 Continue Zosyn IV for treatment of foot wound. Continue wound care. Oxygenation at baseline. Creatinine showing increase to 1.4. Sodium increased to 149. Magnesium normalized at 2.1. Will stop IV Bumex and D5W. Restart home Bumex 1mg po BID. 11/25/17 Continue Zosyn IV for treatment of foot wound. Continue wound care. WBC normal at 7.4. Creatinine stable from yesterday at 1.4. Sodium improved to 147. Continue oral Bumex. Weight increasing but respiratory status is stable - monitor closely - high risk for fluid overload. CXR this am personally reviewed - pulmonary edema improving with better aeration in upper lobes. Continue BiPAP HS. Hgb decreased to 7.3 though she's asymptomatic. Check stool for occult blood. Stool frequency increasing, with 2 watery bowel movements yesterday. She's not on any stool softeners/laxatives. If diarrhea persists, check for C. diff. 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 Fernandez. Continue wound care. WBC stable at 8.2 and afebrile. Slight increase in Na at 149 with slight increase in SCr at 1.5. Weight down. Respiratory status stable and breathing easily at home baseline of 2L NC. Continue to monitor closely. Continue oral Bumex. Monitor closely as high risk for fluid overload. Continue BiPAP HS. CXR on 11/25 revealed improved aeration of lungs with persistent bilateral airspace disease and small pleural effusions. Hgb stable at 7.9 - remains asymptomatic. Fecal occult negative. Suspect anemia may be due to CKD stage III. Patient continues to report soft stools but is unsure of watery or diarrhea stools. Nursing denies diarrhea; monitor. Continue Culturelle for bowel protection. Encourage participation in therapies for strengthening and improvement in functional abilities.
[2017-11-26] MEDS: INSULIN ASPART 100unit/ml INJECTION SQ PRN ×2 (14:50→21:01)
[2017-11-26] MEDS: ATORVASTATIN 40 MG TABLET PO SCH (20:54)
[2017-11-26] MEDS: MIRTAZAPINE 15 MG TABLET PO SCH (20:54)
[2017-11-26] MEDS: INSULIN DETEMIR 100unit/ml INJECTION SQ SCH (21:00)
[2017-11-27] MEDS: SALINE FLUSH 10ml SYRINGE IVF PRN ×3 (00:18→20:34)
[2017-11-27] MEDS: PIPERACILLIN/TAZOBACTAM 2.25 GM in NS 100 ML IV SCH ×4 (00:19→18:35)
[2017-11-27] MEDS: PANTOPRAZOLE 40 MG TABLET PO SCH ×2 (05:42→17:09)
[2017-11-27] MEDS: SUCRALFATE 1gm/10ml ORAL LIQUID PO SCH ×4 (05:42→20:33)
[2017-11-27] MEDS: LEVOTHYROXINE 25 MCG TABLET PO SCH (05:42)
[2017-11-27] MEDS: NS FLUSH BAG 500ml IV PRN (06:25)
[2017-11-27] MEDS: ASCORBIC ACID 500 MG TABLET PO SCH (08:21)
[2017-11-27] MEDS: ASPIRIN 81 MG CHEWABLE TABLET PO SCH (08:21)
[2017-11-27] MEDS: FERROUS SULFATE 324 MG TABLET PO SCH (08:21)
[2017-11-27] MEDS: AMIODARONE 200 MG TABLET PO SCH (08:21)
[2017-11-27] MEDS: LACTOBACILLUS (15B cfu) CAPSULE PO SCH ×2 (08:21→17:09)
[2017-11-27] MEDS: INSULIN ASPART 100unit/ml INJECTION SQ SCH ×3 (08:22→17:10)
[2017-11-27] MEDS: AMLODIPINE 2.5 MG TABLET PO SCH (08:22)
[2017-11-27] MEDS: LISINOPRIL 2.5 MG TABLET PO SCH (08:22)
[2017-11-27] MEDS: BUMETANIDE 1 MG TABLET PO SCH ×2 (08:22→14:05)
[2017-11-27] MEDS: CARVEDILOL 12.5 MG TABLET PO SCH ×2 (08:22→17:09)
--- NOTE | 2017-11-27 09:24 | ID Progress Note ---
Subjective Date: 11/27/17 Subjective: Ms. Ball reports that she's feeling better today. Denies any pain or shortness of breath. Eating ok. Says she has been working some with therapy. Denies nausea or diarrhea. Exam Vital Signs: Temperature 96.7 F L 11/27/17 08:01 Pulse Rate 69 11/27/17 08:01 Respiratory Rate 20 11/27/17 08:01 Blood Pressure 159/70 H 11/27/17 08:01 Pulse Oximetry 96 11/27/17 08:01 Height/Weight/BMI: Height 1.63 m Weight 77.2 kg Body Mass Index 29.4 - Constitutional Present: no acute distress, well nourished, well developed - Routine HEENT Exam Head: Present: normocephalic, atraumatic Eye: Present: EOMI, PERRL ENT: Present: mucous membranes moist, oropharynx clear - Routine Neck Exam Present: supple - Routine Respiratory Exam Present: CTA bilaterally Comments: On O2 by NC - Routine Cardiovascular Exam Present: RRR - Routine Abdominal Exam Present: soft, normoactive bowel sounds, non distended, non tender - Routine Exam Comments: no orourke - Routine Extremities Exam Absent: cyanosis, clubbing, edema - Routine Skin Exam Absent: rash Comments: Wound R foot has a large area of eschar on it. No surrounding erythema. Lots of peeling skin. - Routine Neurological Exam Present: alert, oriented X3, CN II-XII intact, normal speech. Absent: motor deficit - Routine Psychiatric Exam Present: normal affect Results - Labs CBC & Chem 7: 11/27/17 04:33 11/27/17 04:33 Microbiology Results: Microbiology 11/10/17 22:26 Heel, Right Gram Stain - Final 11/10/17 22:26 Heel, Right Superficial Wound Culture - Final Enterococcus faecalis Achromobacter species Corynebacterium species Coag negative Staphylococcus 11/12/17 10:54 Sputum, Expectorated Gram Stain - Final 11/12/17 10:54 Sputum, Expectorated Sputum Culture - Final Normal Respiratory Chad including Yeast Present 11/12/17 10:35 Urine, Cath Orourke Urine Culture - Final No Growth After 2 Days Impression: Sepsis secondary to skin/soft tissue source Diabetic foot infection R foot with cellulitis and osteomyelitis. Wound culture 11/10/17 with Enterococcus, Achromobacter, and skin chad. S/p debridement down to bone of 1st MT on 11/15/17. 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 Bone scan 05/22/17 with abnormal uptake R 1st MT head consistent with osteomyelitis. S/p bone biopsy R 1st MT head 06/05/17 which was negative for osteomyelitis. Wound was noted to be healed on 09/25/17 and her cephalexin was stopped. Recurrent esophageal cancer, on weekly chemotherapy per Dr. Newman. H/o sepsis/septicemia with Pantoea species 2016, s/p Port removal 02/28/17. DM II, with peripheral neuropathy CKD stage III. COPD-chronic oxygen use at 2 liters Chronic atrial fibrillation s/p pacemaker implantation Hypertension GERD Hyperlipidemia Obstructive sleep apnea History of anemia and GI bleed. Allergies to cipro and sulfa (rash). UE Edema Recommendation: Recommend treating her with IV antibiotics for 6 weeks for osteomyelitis R 1st MT. Will have to clarify her allergies. My records indicate she has an allergy to cipro, but this is not listed in the hospital chart. Continue Zosyn for now. I anticipate that she might need some time at rehab. She was started on Zosyn on 11/10, so 6 weeks would tentatively go through 12/22/17. For outpatient therapy, I'd recommend Invanz 1gm IV daily and Daptomycin 6mg/kg IV daily.
[2017-11-27] MEDS: INSULIN ASPART 100unit/ml INJECTION SQ PRN ×3 (10:16→21:40)
[2017-11-27] MEDS: ALBUTEROL 2.5mg/3ml (0.083%) NEB AEROSOL SCH ×2 (10:39→19:02)
--- NOTE | 2017-11-27 14:26 | Progress Note ---
- Date 11/27/17 Subjective: Angela is seen this afternoon. She is in good spirits and reports she is feeling good. Overall feels that her breathing continues to be improved. She denies having pain. Lower extremity dressing recently changed by nursing staff with Aquacel. Overall appetite is fair, she continues to not care for thickened liquids. Objective Vital signs: Temperature 96.9 F 11/27/17 11:22 Pulse Rate 75 11/27/17 11:22 Respiratory Rate 22 11/27/17 11:22 Blood Pressure 149/63 H 11/27/17 11:22 Pulse Oximetry 97 11/27/17 11:22 Height/Weight/BMI: Height 1.63 m Weight 77.2 kg Body Mass Index 29.4 - Constitutional Present: no acute distress, well nourished, well developed - Routine HEENT Exam Eye: Present: EOMI ENT: Present: mucous membranes moist, dentition normal - Routine Respiratory Exam Present: CTA bilaterally. Absent: wheezes - Routine Cardiovascular Exam Present: RRR. Absent: murmur - Routine Abdominal Exam Present: soft, normoactive bowel sounds, non distended. Absent: tenderness - Routine Extremities Exam Present: normal capillary refill - Routine Skin Exam Present: intact, dry, warm - Routine Neurological Exam Present: alert, oriented X3, CN II-XII intact, moving all extremities - Routine Lymphatic Exam Lymphatic: Absent: adenopathy - Routine Psychiatric Exam Present: normal affect, cooperative Results - Labs CBC & Chem 7: 11/27/17 04:33 11/27/17 04:33 Microbiology Results: Microbiology 11/10/17 22:26 Heel, Right Gram Stain - Final 11/10/17 22:26 Heel, Right Superficial Wound Culture - Final Enterococcus faecalis Achromobacter species Corynebacterium species Coag negative Staphylococcus 11/12/17 10:54 Sputum, Expectorated Gram Stain - Final 11/12/17 10:54 Sputum, Expectorated Sputum Culture - Final Normal Respiratory Rosie including Yeast Present 11/12/17 10:35 Urine, Cath Longoria Urine Culture - Final No Growth After 2 Days Assessment and Plan (1) Acute anemia Current visit: Yes Status: Acute Assessment and Plan: Impression: Acute anemia-hemoglobin was 7.1 at the end of October and she received 1 unit of blood. She received 1 unit PRBCs 11/11/2017 with hemoglobin improving to 8.0. Per previous lab at [facility], hemoglobin has been around the 10 range from June to September of this year. Upper GI bleed secondary to esophageal ulcer - EGD 11/12/2017 Esophageal cancer with current chemotherapy on hold Sepsis, right lower extremity wound-resolved Diabetic foot ulcer with skin and soft tissue infection-on Zosyn 11/10-present, and vancomycin 11/10-11/15. Type II DM PAD -On October 31 she underwent right SFA atherectomy and percutaneous angioplasty by Dr. Mcghee at [place]. discussed with Dr. Hernandez and he would prefer that she stay on aspirin and Plavix, but if concerns for acute GI bleed he is okay with discontinuation of Plavix. Acute on chronic kidney injury, baseline creatinine approximately 1.3-was 1.6- 1.7 at the end of October. Creatinine has improved to baseline. Heart failure, preserved ejection fraction\VHD\known PFO Atrial fibrillation-currently sinus rhythm Poor vascular access-PICC line placed 11/10/2017 History of polymicrobial, MDR infection COPD with chronic hypoxemia-on 2 L Acute bronchitis-improved Recent UTI-resolved Hypovolemia-resolved Hypernatremia-present on admission Metabolic acidosis-resolved Immunocompromise secondary to chemotherapy Syncope prior to admission with generalized weakness Gross Hematuria-resolved Mild acute respiratory failure requiring 3 L of oxygen-normally on 2 L of oxygen daily Possible fluid overload Hypoalbuminemia/malnutrition Plan Spoke with case management upon multiple occasions today regarding treatment plan. 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 Fernandez. Continue wound care. WBC stable at 8.2 and afebrile. He is on baseline oxygen of 2 liters with BiPAP at night. He is on oral Bumex for gentle diuresis Remains elevated at 150, creatinine 1.6. Continue to monitor carefully [place] remains low, however, is stable at 7.2. Patient does drop below 7.0, will transfuse with 1 unit. Encourage participation in therapies for strengthening and improvement in functional abilities. DVT Prophylaxis: SCD's Resuscitation Status: Do Not Resuscitate - Time spent with patient Time with patient PN: 25 minutes - Physician Narrative Physician: Vishnu Casiano MD Narrative: Date: 11/27/17 Time: 1422 Have independently interviewed and examined pt. Chart reviewed. Case discussed with CM and my COURT CLERK. Care plan developed with my supervision; agree with above. Doing okay today. Did some work with therapy-very weak in general. Appetite fair -eating, but not hungry. Breathing stable. Lungs: decreased, no distress CV: regular AB; soft nt/nd MSE: awake alert Plan: Will need to move PICC to left arm (pacemaker on right) - Fluoro guided placement tomorrow. In discussion with CM, will need to look into Swing Bed here -suspect cost of antibiotics prohibitive for Detention. Check CXR tomorrow to make sure pulmonary status not worsening. Continue wound care. Encourage therapy. Hospital Course Summary Disclaimer: The visit summary below is not to be considered part of the above Progress Note. Hospital Course: Impression: 1. Acute anemia 2. Suspected GI bleed 3. Esophageal cancer with current chemotherapy 4. Sepsis, suspected due to right lower extremity wound 5. Chronic right lower extremity wound with exacerbation of infection 6. PAD with recent ballooning and/or stenting of the RLE vascular system 7: Acute on chronic kidney injury, baseline creatinine approximately 1.3 8. Heart failure, preserved ejection fraction\VHD\known PFO 8. Atrial fibrillation 9. Poor vascular access 10. History of polymicrobial, MDR infection 11. COPD with chronic hypoxemia 12. Acute bronchitis 13. Recent UTI 14. Hypovolemia Plan: Admit, inpatient, ICU. Admitting: Dr. Carrillo. PCP: Dr. Rachel Dietz Patient will receive a single unit of blood now. Per blood bank, she usually receives leuko-reduced, irradiated blood. We will obtain additional H&H at around 6 hours from time of admission. I suspect that she is likely more anemic than her labs reveal due to significant hypovolemia. We may need additional transfusion this evening. Protonix drip per protocol. Have a PICC line placed due to poor vascular access. (I discussed this with the patient, risk & benefits discussed, she is in agreement to have PICC line placed ) Hold aspirin and Plavix this evening. We will need to obtain records from [facility] regarding specific procedures in the morning. Consult Dr. Lopez in the morning for further evaluation of GI bleeding. Check INR now. We will hold her antihypertensive currently. She is at high risk for hemodynamic instability. Hold diuretics. Continue amiodarone to help with rhythm control. She is not on full strength anticoagulation. Again, we will need to hold her aspirin and Plavix this evening, and further addressed in the morning. She is followed routinely by Dr. John Leyva. Monitor for fluid overload due to known history of heart failure and valvular heart disease. She has recently been on chemotherapy, therefore is immunocompromised. She also has a history of MDR infections. We'll consult Dr. Afua Fernandez in the morning. Start on Zosyn and vancomycin. Blood cultures have been drawn in the emergency department. Obtain UA, wound cultures, and sputum cultures. Most recent urine cultures have been reviewed. Check lactate now and recheck per protocol. Continue O2 per home regimen. Restart breathing treatments. DVT prophylaxis: Will hold off for now. Due to very recent vascular stenting, I do not feel comfortable placing SCDs. No blood thinners due to known bleeding. CODE STATUS: I did discuss this with the patient. She remains a DO NOT RESUSCITATE as documented in her past medical history. Extensive time was spent this evening, greater than 90 minutes, and review of the medical record, exam, discussion with care team members, etc. Patient is very ill, will require close monitoring. 11/11/2017 The patient's hemoglobin did improve after 1 unit of blood. She is feeling just a little bit stronger. Sodium has increased overnight. She still has metabolic acidosis with bicarbonate of 18. Lactate has been normal 3. Will change IV fluids to D5 W with 75 mEq of sodium bicarbonate. Continue to monitor renal function closely. Regarding anemia and concern for possible GI bleed, hemoglobin had been in the 10 range until at least September of this year. When she went to [place] for procedure at the end of October, her hemoglobin was 7.1 and she was given 1 unit of blood. Hemoglobin at discharge was 8.0. She was admitted yesterday with heme positive stool but did not have any melena or debbie hematic usually a. She had been on aspirin and Plavix for recent angioplasty of her right lower extremity. Her dryerman/woman prefers that she would stay on aspirin and Plavix, but Plavix could be discontinued if there were significant concerns for GI bleed. Continue on Protonix drip for now.Continue to hold aspirin and Plavix for now. We'll make the patient nothing by mouth now in case she does need EGD regarding anemia and heme positive stool. Dr. Lopez was consulted regarding infected diabetic foot wound in her right lower extremity and regarding possible GI bleed with known esophageal cancer. Dr. Fernandez was consulted regarding the patient's diabetic foot wound. Will discuss patient's anemia, possible GI bleed and esophageal cancer with Dr. Newman. Recheck CBC, renal panel and magnesium tomorrow. Discussed with Dr. Lopez, Dr. Fernandez, and Dr. Hernandez. 11/12/2017 The patient's hemoglobin has been stable for the last 24 hours. Hemoglobin is currently 7.9. She received 1 unit of blood on the evening of admission. She is currently nothing by mouth for EGD around noon today. Blood pressures have been elevated today and she would likely benefit from restarting amlodipine and carvedilol. Lisinopril and Bumex has been on hold for acute kidney injury. Could consider restarting these soon as well. Regarding hematuria, will check urinalysis. Continue incentive spirometer to help with mild acute on chronic hypoxic respiratory failure. Consider DC IV fluids after ETT depending upon results We'll determine whether or not restart aspirin and/or Plavix after EGD Continue Protonix drip for now. Continue off of aspirin and Plavix for now. Continue on vancomycin and Zosyn for infected diabetic foot wound. Recheck CBC, renal panel tomorrow. Repeat chest x-ray tomorrow if not down to baseline oxygen level. Discussed with the patient's nurse and Dr. Lopez. 11/13/17 The patient's hemoglobin has been stable for the last 48 hours hours. Hemoglobin is currently 8.1. She received 1 unit of blood on the evening of admission. EGD revealed an esophageal ulcer. No active bleeding. Discussed with Dr. Lopez. Will start aspirin 81 mg daily because of her recent angioplasty of right SFA. Add Carafate slurry. Change Protonix to by mouth. Blood pressures doing better after restarting amlodipine and carvedilol. Acute kidney injury has resolved. I&O is +5 L. We'll restart Bumex. Continue to hold lisinopril at this time. DC IV fluids and encourage by mouth fluid intake. This should help with hypernatremia. Supplements 3 times a day with meals for hypoalbuminemia. Discussed diabetic foot ulcers with skin and soft tissue infection with Dr. Lopez. He wants to wait and see how she does with Iodosorb treatment and will consider wound exploration later this week. If there are signs of osteo- myelitis during exploration, he would likely check an MRI at that point. Discussed skin and soft tissue infection with Dr. Fernandez today as well. Titrate O2 if able. Heel protector to the left foot. 11/14/17 The patient's hemoglobin has been stable for the past 3 days. Hemoglobin is currently 7.7. She received 1 unit of blood on the evening of admission. EGD revealed an esophageal ulcer. No active bleeding. Aspirin 81 mg started yesterday because of her recent angioplasty of right SFA. Continue Carafate slurry and Protonix orally for esophageal ulcer Blood pressures doing better after restarting amlodipine and carvedilol. Consider restarting lisinopril Acute kidney injury has resolved. I&O is +5 L. We'll restart oral Bumex. We'll check a chest x-ray now, possible IV diuresis. Supplements 3 times a day with meals for hypoalbuminemia. Discussed diabetic foot ulcers with skin and soft tissue infection with Dr. Lopez. He wants to wait and see how she does with Iodosorb treatment and will consider wound exploration later this week. If there are signs of osteo- myelitis during exploration, he would likely check an MRI at that point. 11/15/17 Hgb remains stable, 7.9. Continue Carafate and Protonix, soft diet, for known esophageal ulcer. Cont ASA b/c right SFA angioplasty. Bumex was resumed yesterday (resumed BID, at home only takes daily) - hypernatremia remains stable at 152; renal function also stable. K decreased to 3.2 - give KDur 40 mEq x1. [place] replaced on 11/15/17. Dr. Lopez considering debridement. Hx of pacemaker - would need to check compatibility for poss MRI. Discussed with Dr. Fernandez. Continue Zosyn. Venous doppler ordered of left arm. 11/16/17 Hgb remains stable, 7.8, though will need close monitoring with reports of melanotic stools last night - could still be residual from known esophageal ulcer. Continue Carafate and Protonix, soft diet. Cont ASA b/c right SFA angioplasty. Hypernatremia remains at 152; renal function also stable. K improved to 3.7. Weight is trending up; she's had positive fluid balances since admit. Poss fluid on CXR vs. pneumonia/atelectasis. Oral Bumex resumed on 11/14 - may need IV diuretic. Continue Zosyn per ID recommendations. 11/17/17 Hgb remains stable, 7.8, no further melanotic stools reported. Continue Carafate and Protonix, soft diet. Cont ASA b/c right SFA angioplasty. Hypernatremia persists, carrier fluid change to half-normal saline. Renal function stable. Fluid balance positive, increasing respiratory effort and chest x-ray with clear evidence of worsening heart failure. Supplemental dose IV Bumex given-assess response; if inadequate diuresis with 1 time dose will schedule IV Bumex q6Hrs. Very debilitated, prognosis guarded all things considered. Zosyn adjusted for renal function-depth of the wounds right foot worrisome for osteomyelitis. 11/18/17 Hgb improved to 8.5. Continue Carafate and Protonix, soft diet. I/O yesterday 950/1725 and weight has decreased to 78 kg. However, BNP 47574 yesterday and yesterday's CXR showed increased pulmonary edema. Oxygen requirements increased, 3.5L. Renal function overall stable with minimal rise in creatinine to 1.4. Hypernatremia more pronounced today at 154. Carrier IVF were changed to 1/2 NS yesterday. Discussed diuresis with Dr. Braun - will stop PO Bumex and start Bumex 1 mg IV QID. Start KDur 20 mEq WS. Continue Zosyn for right foot wound/possible osteomyelitis. WBC 11.1; afebrile. 11/19/17 Diuresis improving with 1000 UO reported overnight; weight down slightly. She's on 3.5L of oxygen. Tachypneic with audible secretions - continue Bumex Q6h. Renal function with mild elevation with BUN 24 and creatinine 1.5. Continue 1/2 NS as Na still high at 154. Continue Zosyn for right foot wound/possible osteomyelitis. WBC 11.2; afebrile. Hgb 8.1. Continue Carafate and protonix for esophageal ulcer. Respiratory acidosis present on blood gas; BiPAP initiated. 11/20/17 UO 2L yesterday; today with 1200 so far. Resp status improving - no longer tachypneic and is more alert and conversational. On 3L O2. Weight slowly trending down. Renal status stable with BUN 23 and creatinine 1.5. Na climbing; 155. D5 with K started earlier today - monitor response. Began discussion on expectations with the patient and her sister Aliya - at this time she would like to continue with current treatments, but she understands that if they continue to fail or if she wishes to withdraw care and focus on comfort, that is an option. 11/21/17 Na improved slightly to 152 on D5W with KCl. Renal function stable, BUN 23, creatinine 1.3. O2 demands improving as of last evening. Continue QID Bumex. Diarrhea x2 since last evening: has been on Zosyn since admission; clinically treating for osteomyelitis. Abdominal distention also noted today. If diarrhea continues, will check C. diff. Check CBC to f/u on anemia and leukocytosis. Left PICC line not working properly - d/w correctional supervisor - Hao Slater to withdraw PICC 3 cm, where it will still be in the subclavian. Ultimately we may need a new PICC line if pt/family wish to proceed with current cares. Consult dietary d/t malnutrition. ? parenteral nutrition. 11/22/17 Work on weaning down oxygen, baseline is 2 liters. Continue gentle diuresis with Bumex 1 milligram IV 4 times a day. Overall weight continues to trend down. Persistent hypernatremia - continue with D5W with KCl. Monitor hemoglobin carefully as patient may require additional transfusion. Zosyn antimicrobial coverage of foot wound. Continue wound care. 11/23/17 Zosyn IV for treatment of foot wound. Tylenol as needed for pain. Continue to work on weaning down oxygen, baseline is 2 liters. Bumex 1 milligram IV 4 times a day - With sodium decrease to 143, will decrease D5W with KCl to 25cc/hr. Continue to follow Hgb- slowly trending down 7.5. Replace Magnesium IV - 2 grams IV. 11/24/17 Continue Zosyn IV for treatment of foot wound. Continue wound care. Oxygenation at baseline. Creatinine showing increase to 1.4. Sodium increased to 149. Magnesium normalized at 2.1. Will stop IV Bumex and D5W. Restart home Bumex 1mg po BID. 11/25/17 Continue Zosyn IV for treatment of foot wound. Continue wound care. WBC normal at 7.4. Creatinine stable from yesterday at 1.4. Sodium improved to 147. Continue oral Bumex. Weight increasing but respiratory status is stable - monitor closely - high risk for fluid overload. CXR this am personally reviewed - pulmonary edema improving with better aeration in upper lobes. Continue BiPAP HS. Hgb decreased to 7.3 though she's asymptomatic. Check stool for occult blood. Stool frequency increasing, with 2 watery bowel movements yesterday. She's not on any stool softeners/laxatives. If diarrhea persists, check for C. diff. 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 Fernandez. Continue wound care. WBC stable at 8.2 and afebrile. Slight increase in Na at 149 with slight increase in SCr at 1.5. Weight down. Respiratory status stable and breathing easily at home baseline of 2L NC. Continue to monitor closely. Continue oral Bumex. Monitor closely as high risk for fluid overload. Continue BiPAP HS. CXR on 11/25 revealed improved aeration of lungs with persistent bilateral airspace disease and small pleural effusions. Hgb stable at 7.9 - remains asymptomatic. Fecal occult negative. Suspect anemia may be due to CKD stage III. Patient continues to report soft stools but is unsure of watery or diarrhea stools. Nursing denies diarrhea; monitor. Continue Culturelle for bowel protection. Encourage participation in therapies for strengthening and improvement in functional abilities. 11/27/17 Spoke with case management upon multiple occasions today regarding treatment plan. 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 Fernandez. Continue wound care. WBC stable at 8.2 and afebrile. He is on baseline oxygen of 2 liters with BiPAP at night. He is on oral Bumex for gentle diuresis Remains elevated at 150, creatinine 1.6. Continue to monitor carefully [place] remains low, however, is stable at 7.2. Patient does drop below 7.0, will transfuse with 1 unit. Encourage participation in therapies for strengthening and improvement in functional abilities.
[2017-11-27] MEDS: MIRTAZAPINE 15 MG TABLET PO SCH (20:33)
[2017-11-27] MEDS: ATORVASTATIN 40 MG TABLET PO SCH (20:33)
[2017-11-27] MEDS: ACETAMINOPHEN 500 MG TABLET PO PRN (20:34)
[2017-11-27] MEDS: INSULIN DETEMIR 100unit/ml INJECTION SQ SCH (21:38)
[2017-11-28] MEDS: SALINE FLUSH 10ml SYRINGE IVF PRN ×2 (00:49→06:06)
[2017-11-28] MEDS: PIPERACILLIN/TAZOBACTAM 2.25 GM in NS 100 ML IV SCH ×3 (00:50→12:39)
[2017-11-28] MEDS: SUCRALFATE 1gm/10ml ORAL LIQUID PO SCH ×2 (06:07→10:30)
[2017-11-28] MEDS: LEVOTHYROXINE 25 MCG TABLET PO SCH (06:07)
[2017-11-28] MEDS: PANTOPRAZOLE 40 MG TABLET PO SCH (06:08)
[2017-11-28] MEDS: NS FLUSH BAG 500ml IV PRN (06:10)
[2017-11-28] MEDS: FERROUS SULFATE 324 MG TABLET PO SCH (08:05)
[2017-11-28] MEDS: AMIODARONE 200 MG TABLET PO SCH (08:06)
[2017-11-28] MEDS: ASCORBIC ACID 500 MG TABLET PO SCH (08:06)
[2017-11-28] MEDS: LISINOPRIL 2.5 MG TABLET PO SCH (08:06)
[2017-11-28] MEDS: BUMETANIDE 1 MG TABLET PO SCH ×2 (08:06→14:32)
[2017-11-28] MEDS: AMLODIPINE 2.5 MG TABLET PO SCH (08:06)
[2017-11-28] MEDS: ASPIRIN 81 MG CHEWABLE TABLET PO SCH (08:06)
[2017-11-28] MEDS: LACTOBACILLUS (15B cfu) CAPSULE PO SCH (08:06)
[2017-11-28] MEDS: CARVEDILOL 12.5 MG TABLET PO SCH (08:06)
[2017-11-28] MEDS: INSULIN ASPART 100unit/ml INJECTION SQ SCH ×2 (08:07→12:45)
[2017-11-28 08:12] VITALS: RESP 18
[2017-11-28] MEDS: ALBUTEROL 2.5mg/3ml (0.083%) NEB AEROSOL SCH (08:25)
[2017-11-28] MEDS: INSULIN ASPART 100unit/ml INJECTION SQ PRN ×2 (10:17→14:36)
[2017-11-28 12:44] VITALS: BP 161/62; PULSE 71; TEMP 97.3; O2SAT 95
--- NOTE | 2017-11-28 13:07 | Fluoroscopy Report ---
Indication:move picc to R arm Procedure:FL guided PICC replacement PICC LINE REPLACEMENT: After discussing the details of the procedure, including risks, the patient wished to proceed. Informed consent was obtained. A preprocedural timeout was performed to confirm the correct patient and procedure. A tyre builder image of the existing left-sided PICC line was obtained, which showed the tip of the catheter in the left subclavian vein. Sterile technique, local Xylocaine anesthesia, and sonographic guidance was used to access the right cephalic vein. A .018 guidewire was advanced into the vein. Then using fluoroscopic guidance, a single lumen 4 Fr PICC line was advanced with the tip placed within the SVC. Catheter length is 39 cm. A fluoroscopic image was then taken and archived. I was able to aspirate blood and inject freely through the port. The procedure was completed without complication. Following this, the left-sided PICC line was removed. The patient tolerated this procedure well. Following this, the patient was taken back to her room on the medical floor. She was in stable condition. Impression: 1. Successful right-sided PICC line placement with the tip residing at the cavoatrial junction. 2. Successful removal of the original left-sided PICC line. Fluoroscopy dose: 24.21 mGy (Cumulative air kerma) Hao Slater RPA/EMILIO performed this under my personal supervision. .
--- NOTE | 2017-11-28 14:03 | Discharge Summary ---
Discharge Information Date of admission: 11/10/17 15:44 Anticipated date of discharge: 11/28/17 Attending Physician: Debbie Caraballo IV, MD Primary care physician: Rachel Dietz DO Consults: Dr. Phil Lopez-General Surgeon Dr. Nandini Fernandez-infectious disease - Discharge Diagnosis (1) Acute anemia Status: Acute Diabetic foot ulcer with skin and soft tissue infection-on Zosyn 11/10-present, and vancomycin 11/10-11/15. Acute anemia Upper GI bleed secondary to esophageal ulcer - EGD 11/12/2017 Esophageal cancer with current chemotherapy on hold Sepsis, right lower extremity wound-resolved Type II DM PAD -On October 31 she underwent right SFA atherectomy and percutaneous angioplasty by Dr. Mcghee at [place]. discussed with Dr. Hernandez and he would prefer that she stay on aspirin and Plavix, but if concerns for acute GI bleed he is okay with discontinuation of Plavix. Acute on chronic kidney injury, baseline creatinine approximately 1.3-was 1.6- 1.7 at the end of October. Creatinine has improved to baseline. Heart failure, preserved ejection fraction\VHD\known PFO Atrial fibrillation-currently sinus rhythm Poor vascular access-PICC line placed 11/10/2017 History of polymicrobial, MDR infection COPD with chronic hypoxemia-on 2 L Acute bronchitis-improved Recent UTI-resolved Hypovolemia-resolved Hypernatremia-present on admission Metabolic acidosis-resolved Immunocompromise secondary to chemotherapy Syncope prior to admission with generalized weakness Gross Hematuria-resolved Mild acute respiratory failure requiring 3 L of oxygen-normally on 2 L of oxygen daily Possible fluid overload Hypoalbuminemia/malnutrition - Procedures Procedures: 11/12/17-EGD- Upon upper endoscopy the patient was found to have a mass involving the distal esophagus. This mass did appear neoplastic in nature. Within the central portion of this mass there was a long linear ulcer containing a white exudate-like material overlying the ulcer bed. The ulcer itself was perhaps about 3 cm in length and about a centimeter in width. The mass did extend into the cardia of the stomach. Photos were obtained for documentation purposes. Stomach and duodenum were within normal limits. Bilateral PICC lines placed 11/10/17- Left 11/28/17- Right - Laboratory Labs: 11/28/17 04:09 11/28/17 04:09 - Microbiology Microbiology 11/10/17 22:26 Heel, Right Gram Stain - Final 11/10/17 22:26 Heel, Right Superficial Wound Culture - Final Enterococcus faecalis Achromobacter species Corynebacterium species Coag negative Staphylococcus 11/12/17 10:54 Sputum, Expectorated Gram Stain - Final 11/12/17 10:54 Sputum, Expectorated Sputum Culture - Final Normal Respiratory Rosie including Yeast Present 11/12/17 10:35 Urine, Cath Longoria Urine Culture - Final No Growth After 2 Days - Radiology Radiology: Chest x-ray 11/10/17 Upper limits normal sized heart without CHF or pneumonia. Left-sided dual-lead pacemaker in place. 1. The left PICC line appears to be slightly withdrawn is partially obscured by overlying pacer leads though the tip likely overlies the mid left brachiocephalic vein. 2. Heart size is upper limits normal without CHF or pneumonia. Mitral annular calcifications noted. 11/11/17 1. Upper limits normal size heart with prominent mitral annular calcifications. 2. Limited depth of inspiration with some chronic senescent interstitial changes and basilar atelectasis suggested. 3. Left PICC line in place with the tip overlying the region of the left brachiocephalic vein. 11/14/17-Developing right lower lobe atelectasis, pneumonia or aspiration. No significant change in mild pulmonary edema. 11/17/17-worsening pulmonary edema 11/20/17-slight improvement in moderate pulmonary edema 11/25/17- Improved aeration of the lungs with persistent bilateral airspace disease and small pleural effusions. Venous Doppler-11/10/17- no evidence of right lower extremity DVT Right foot x-ray- 11/11/17 1. 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 2. No suspicious bony erosive/destructive abnormalities. 3. Pes planus deformity. 4. Mild to moderate osteoarthrosis. Venous Doppler left upper extremity- 11/15/17- No evidence of acute DVT in the left upper extremity. Superficial thrombophlebitis in the cephalic. - Pathology 11/12/17-esophageal biopsy-reveals invasive adenocarcinoma as seen in previous biopsy History of Present Illness HPI: HPI: Hospitalist. Patient is seen post admission to the CCU following her ER visit today. She has a very extensive medical history as detailed above. She has dealt with recurrent infections, including sepsis and bacteremia, as well as complicated recurrent foot wound. She has been admitted under the hospitalist service multiple times in the past. She has dealt with a persistent right foot wound, with prior concern for osteomyelitis. She did undergo bone biopsy, which did NOT reveal osteomyelitis . Wound cultures of the site were polymicrobial, and did show MRSA sensitive to doxycycline. She has followed in the wound clinic for treatment of her wound, and [facility] home health has been following as well. Patient was seen in the ER 11/01/17 due to weakness post transfusion. A urine culture done on that date was + for E.Coli and Proteus Mirabilis. [facility] has continued to follow the patient, and in their notes on 11/07/17, they documented that patient had a copious amount of drainage from the right foot wound. Patient was pale, and reported not feeling well, but her vitals were stable at that time. She was scheduled to see her PCP on the following day (11/08), and had also seen her PCP on 11/06. She has continued to feel progressively worse, and she was brought into the emergency room today for further assessment. While in the ER today, the patient was demonstrated to have multiple concerns. There is concern that she may be developing severe infection &/or sepsis due to severe foot wound. She has recently undergone a vascular procedure of the right LE due to chronic peripheral arterial disease,and is currently taking Plavix. Her HGB has dropped from 11.1 to 7.7 in the last 10 days, and a hemoccult done in ER was positive. Her BUN was also markedly elevating, lending concern to the finding of a GI bleed. She has a known history of esophageal cancer, for which she sees Dr. Newman. She has also seen Dr. Lopez in the past for GI bleed. Due to her multiple medical concerns, and frail elderly status, she is admitted to the intensive care unit for further evaluation and treatment. She is a very pale, ill appearing female. She is pleasant, and gives history in conjunction with her sister, whom she lives with. Patient reports that she underwent a transfusion on 11/01/2017 at [facility] in lieu of his scheduled vascular procedure due to anemia. Sister reports that her hemoglobin at that time was somewhere around 7, and she received 1 unit of blood. Following that dismissal, she was seen in the [facility] ER as detailed above. She reports that she was taken back to [facility] this last , and underwent vascular procedure on her right lower extremity. Neither she nor her sister know if the lesion was ballooned, or ballooned and stented. She has been on Plavix due to that procedure. She does not report any debbie blood in her stools, but does report that she has had several loose stools. She does feel that her stool is darker than usual. She reports that she right foot wound has treated been draining more than usual over the last week or so. She references wound care, but does not tell me if that is here at [place] or at [facility]. As above, she continues to follow with Dr. Newman for her esophageal cancer. She continues to undergo routine, IV chemotherapy. Her last chemotherapy was approximately 2 weeks ago. In addition, she reports that Dr. dez figueroa updated them that her cancer was responding well to the chemotherapy. They had planned to hold chemotherapy for approximately 3 weeks due to the recurrence of her right foot wound. Objective Vital signs: Temperature 97.3 F 11/28/17 12:43 Pulse Rate 71 11/28/17 12:43 Respiratory Rate 18 11/28/17 12:43 Blood Pressure 161/62 H 11/28/17 12:43 Pulse Oximetry 95 11/28/17 12:43 Rhythm: Normal Sinus Rhythm Height/Weight/BMI: Height 1.63 m Weight 76.7 kg Body Mass Index 29.4 - Constitutional Present: no acute distress, well nourished, well developed - Routine HEENT Exam Eye: Present: EOMI ENT: Present: mucous membranes moist, dentition normal - Routine Respiratory Exam Present: diminished air movement (Diminished bases). Absent: wheezes - Routine Cardiovascular Exam Present: RRR, S1, S2. Absent: murmur - Routine Abdominal Exam Present: soft, normoactive bowel sounds, non distended. Absent: tenderness - Routine Extremities Exam Present: normal capillary refill - Routine Skin Exam Present: intact, dry, warm - Routine Neurological Exam Present: alert, oriented X3, CN II-XII intact - Routine Lymphatic Exam Lymphatic: Absent: adenopathy - Routine Psychiatric Exam Present: normal affect, cooperative Hospital Course This is a general summary of the patient's hospital course. For more details refer to the complete medical record. Hospital course: Impression: 1. Acute anemia 2. Suspected GI bleed 3. Esophageal cancer with current chemotherapy 4. Sepsis, suspected due to right lower extremity wound 5. Chronic right lower extremity wound with exacerbation of infection 6. PAD with recent ballooning and/or stenting of the RLE vascular system 7: Acute on chronic kidney injury, baseline creatinine approximately 1.3 8. Heart failure, preserved ejection fraction\VHD\known PFO 8. Atrial fibrillation 9. Poor vascular access 10. History of polymicrobial, MDR infection 11. COPD with chronic hypoxemia 12. Acute bronchitis 13. Recent UTI 14. Hypovolemia Plan: Admit, inpatient, ICU. Admitting: Dr. Carrillo. PCP: Dr. Rachel Dietz Patient will receive a single unit of blood now. Per blood bank, she usually receives leuko-reduced, irradiated blood. We will obtain additional H&H at around 6 hours from time of admission. I suspect that she is likely more anemic than her labs reveal due to significant hypovolemia. We may need additional transfusion this evening. Protonix drip per protocol. Have a PICC line placed due to poor vascular access. (I discussed this with the patient, risk & benefits discussed, she is in agreement to have PICC line placed ) Hold aspirin and Plavix this evening. We will need to obtain records from [facility] regarding specific procedures in the morning. Consult Dr. Lopez in the morning for further evaluation of GI bleeding. Check INR now. We will hold her antihypertensive currently. She is at high risk for hemodynamic instability. Hold diuretics. Continue amiodarone to help with rhythm control. She is not on full strength anticoagulation. Again, we will need to hold her aspirin and Plavix this evening, and further addressed in the morning. She is followed routinely by Dr. John Leyva. Monitor for fluid overload due to known history of heart failure and valvular heart disease. She has recently been on chemotherapy, therefore is immunocompromised. She also has a history of MDR infections. We'll consult Dr. Afua Fernandez in the morning. Start on Zosyn and vancomycin. Blood cultures have been drawn in the emergency department. Obtain UA, wound cultures, and sputum cultures. Most recent urine cultures have been reviewed. Check lactate now and recheck per protocol. Continue O2 per home regimen. Restart breathing treatments. DVT prophylaxis: Will hold off for now. Due to very recent vascular stenting, I do not feel comfortable placing SCDs. No blood thinners due to known bleeding. CODE STATUS: I did discuss this with the patient. She remains a DO NOT RESUSCITATE as documented in her past medical history. Extensive time was spent this evening, greater than 90 minutes, and review of the medical record, exam, discussion with care team members, etc. Patient is very ill, will require close monitoring. 11/11/2017 The patient's hemoglobin did improve after 1 unit of blood. She is feeling just a little bit stronger. Sodium has increased overnight. She still has metabolic acidosis with bicarbonate of 18. Lactate has been normal 3. Will change IV fluids to D5 W with 75 mEq of sodium bicarbonate. Continue to monitor renal function closely. Regarding anemia and concern for possible GI bleed, hemoglobin had been in the 10 range until at least September of this year. When she went to [place] for procedure at the end of October, her hemoglobin was 7.1 and she was given 1 unit of blood. Hemoglobin at discharge was 8.0. She was admitted yesterday with heme positive stool but did not have any melena or debbie hematic usually a. She had been on aspirin and Plavix for recent angioplasty of her right lower extremity. 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 Continue on Protonix drip for now.Continue to hold aspirin and Plavix for now. We'll make the patient nothing by mouth now in case she does need EGD regarding anemia and heme positive stool. Dr. Lopez was consulted regarding infected diabetic foot wound in her right lower extremity and regarding possible GI bleed with known esophageal cancer. Dr. Fernandez was consulted regarding the patient's diabetic foot wound. Will discuss patient's anemia, possible GI bleed and esophageal cancer with Dr. Newman. Recheck CBC, renal panel and magnesium tomorrow. Discussed with Dr. Lopez, Dr. Fernandez, and Dr. Hernandez. 11/12/2017 The patient's hemoglobin has been stable for the last 24 hours. Hemoglobin is currently 7.9. She received 1 unit of blood on the evening of admission. She is currently nothing by mouth for EGD around noon today. Blood pressures have been elevated today and she would likely benefit from restarting amlodipine and carvedilol. Lisinopril and Bumex has been on hold for acute kidney injury. Could consider restarting these soon as well. Regarding hematuria, will check urinalysis. Continue incentive spirometer to help with mild acute on chronic hypoxic respiratory failure. Consider DC IV fluids after ETT depending upon results We'll determine whether or not restart aspirin and/or Plavix after EGD Continue Protonix drip for now. Continue off of aspirin and Plavix for now. Continue on vancomycin and Zosyn for infected diabetic foot wound. Recheck CBC, renal panel tomorrow. Repeat chest x-ray tomorrow if not down to baseline oxygen level. Discussed with the patient's nurse and Dr. Lopez. 11/13/17 The patient's hemoglobin has been stable for the last 48 hours hours. Hemoglobin is currently 8.1. She received 1 unit of blood on the evening of admission. EGD revealed an esophageal ulcer. No active bleeding. Discussed with Dr. Lopez. Will start aspirin 81 mg daily because of her recent angioplasty of right SFA. Add Carafate slurry. Change Protonix to by mouth. Blood pressures doing better after restarting amlodipine and carvedilol. Acute kidney injury has resolved. I&O is +5 L. We'll restart Bumex. Continue to hold lisinopril at this time. DC IV fluids and encourage by mouth fluid intake. This should help with hypernatremia. Supplements 3 times a day with meals for hypoalbuminemia. Discussed diabetic foot ulcers with skin and soft tissue infection with Dr. Lopez. He wants to wait and see how she does with Iodosorb treatment and will consider wound exploration later this week. If there are signs of osteo- myelitis during exploration, he would likely check an MRI at that point. Discussed skin and soft tissue infection with Dr. Fernandez today as well. Titrate O2 if able. Heel protector to the left foot. 11/14/17 The patient's hemoglobin has been stable for the past 3 days. Hemoglobin is currently 7.7. She received 1 unit of blood on the evening of admission. EGD revealed an esophageal ulcer. No active bleeding. Aspirin 81 mg started yesterday because of her recent angioplasty of right SFA. Continue Carafate slurry and Protonix orally for esophageal ulcer Blood pressures doing better after restarting amlodipine and carvedilol. Consider restarting lisinopril Acute kidney injury has resolved. I&O is +5 L. We'll restart oral Bumex. We'll check a chest x-ray now, possible IV diuresis. Supplements 3 times a day with meals for hypoalbuminemia. Discussed diabetic foot ulcers with skin and soft tissue infection with Dr. Lopez. He wants to wait and see how she does with Iodosorb treatment and will consider wound exploration later this week. If there are signs of osteo- myelitis during exploration, he would likely check an MRI at that point. 11/15/17 Hgb remains stable, 7.9. Continue Carafate and Protonix, soft diet, for known esophageal ulcer. Cont ASA b/c right SFA angioplasty. Bumex was resumed yesterday (resumed BID, at home only takes daily) - hypernatremia remains stable at 152; renal function also stable. K decreased to 3.2 - give KDur 40 mEq x1. [place] replaced on 11/15/17. Dr. Lopez considering debridement. Hx of pacemaker - would need to check compatibility for poss MRI. Discussed with Dr. Fernandez. Continue Zosyn. Venous doppler ordered of left arm. 11/16/17 Hgb remains stable, 7.8, though will need close monitoring with reports of melanotic stools last night - could still be residual from known esophageal ulcer. Continue Carafate and Protonix, soft diet. Cont ASA b/c right SFA angioplasty. Hypernatremia remains at 152; renal function also stable. K improved to 3.7. Weight is trending up; she's had positive fluid balances since admit. Poss fluid on CXR vs. pneumonia/atelectasis. Oral Bumex resumed on 11/14 - may need IV diuretic. Continue Zosyn per ID recommendations. 11/17/17 Hgb remains stable, 7.8, no further melanotic stools reported. Continue Carafate and Protonix, soft diet. Cont ASA b/c right SFA angioplasty. Hypernatremia persists, carrier fluid change to half-normal saline. Renal function stable. Fluid balance positive, increasing respiratory effort and chest x-ray with clear evidence of worsening heart failure. Supplemental dose IV Bumex given-assess response; if inadequate diuresis with 1 time dose will schedule IV Bumex q6Hrs. Very debilitated, prognosis guarded all things considered. Zosyn adjusted for renal function-depth of the wounds right foot worrisome for osteomyelitis. 11/18/17 Hgb improved to 8.5. Continue Carafate and Protonix, soft diet. I/O yesterday 950/1725 and weight has decreased to 78 kg. However, BNP 61570 yesterday and yesterday's CXR showed increased pulmonary edema. Oxygen requirements increased, 3.5L. Renal function overall stable with minimal rise in creatinine to 1.4. Hypernatremia more pronounced today at 154. Carrier IVF were changed to 1/2 NS yesterday. Discussed diuresis with Dr. Braun - will stop PO Bumex and start Bumex 1 mg IV QID. Start KDur 20 mEq WS. Continue Zosyn for right foot wound/possible osteomyelitis. WBC 11.1; afebrile. 11/19/17 Diuresis improving with 1000 UO reported overnight; weight down slightly. She's on 3.5L of oxygen. Tachypneic with audible secretions - continue Bumex Q6h. Renal function with mild elevation with BUN 24 and creatinine 1.5. Continue 1/2 NS as Na still high at 154. Continue Zosyn for right foot wound/possible osteomyelitis. WBC 11.2; afebrile. Hgb 8.1. Continue Carafate and protonix for esophageal ulcer. Respiratory acidosis present on blood gas; BiPAP initiated. 11/20/17 UO 2L yesterday; today with 1200 so far. Resp status improving - no longer tachypneic and is more alert and conversational. On 3L O2. Weight slowly trending down. Renal status stable with BUN 23 and creatinine 1.5. Na climbing; 155. D5 with K started earlier today - monitor response. Began discussion on expectations with the patient and her sister Aliya - at this time she would like to continue with current treatments, but she understands that if they continue to fail or if she wishes to withdraw care and focus on comfort, that is an option. 11/21/17 Na improved slightly to 152 on D5W with KCl. Renal function stable, BUN 23, creatinine 1.3. O2 demands improving as of last evening. Continue QID Bumex. Diarrhea x2 since last evening: has been on Zosyn since admission; clinically treating for osteomyelitis. Abdominal distention also noted today. If diarrhea continues, will check C. diff. Check CBC to f/u on anemia and leukocytosis. Left PICC line not working properly - d/w supervisor covering and lining - Hao Slater to withdraw PICC 3 cm, where it will still be in the subclavian. Ultimately we may need a new PICC line if pt/family wish to proceed with current cares. Consult dietary d/t malnutrition. ? parenteral nutrition. 11/22/17 Work on weaning down oxygen, baseline is 2 liters. Continue gentle diuresis with Bumex 1 milligram IV 4 times a day. Overall weight continues to trend down. Persistent hypernatremia - continue with D5W with KCl. Monitor hemoglobin carefully as patient may require additional transfusion. Zosyn antimicrobial coverage of foot wound. Continue wound care. 11/23/17 Zosyn IV for treatment of foot wound. Tylenol as needed for pain. Continue to work on weaning down oxygen, baseline is 2 liters. Bumex 1 milligram IV 4 times a day - With sodium decrease to 143, will decrease D5W with KCl to 25cc/hr. Continue to follow Hgb- slowly trending down 7.5. Replace Magnesium IV - 2 grams IV. 11/24/17 Continue Zosyn IV for treatment of foot wound. Continue wound care. Oxygenation at baseline. Creatinine showing increase to 1.4. Sodium increased to 149. Magnesium normalized at 2.1. Will stop IV Bumex and D5W. Restart home Bumex 1mg po BID. 11/25/17 Continue Zosyn IV for treatment of foot wound. Continue wound care. WBC normal at 7.4. Creatinine stable from yesterday at 1.4. Sodium improved to 147. Continue oral Bumex. Weight increasing but respiratory status is stable - monitor closely - high risk for fluid overload. CXR this am personally reviewed - pulmonary edema improving with better aeration in upper lobes. Continue BiPAP HS. Hgb decreased to 7.3 though she's asymptomatic. Check stool for occult blood. Stool frequency increasing, with 2 watery bowel movements yesterday. She's not on any stool softeners/laxatives. If diarrhea persists, check for C. diff. 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 Fernandez. Continue wound care. WBC stable at 8.2 and afebrile. Slight increase in Na at 149 with slight increase in SCr at 1.5. Weight down. Respiratory status stable and breathing easily at home baseline of 2L NC. Continue to monitor closely. Continue oral Bumex. Monitor closely as high risk for fluid overload. Continue BiPAP HS. CXR on 11/25 revealed improved aeration of lungs with persistent bilateral airspace disease and small pleural effusions. Hgb stable at 7.9 - remains asymptomatic. Fecal occult negative. Suspect anemia may be due to CKD stage III. Patient continues to report soft stools but is unsure of watery or diarrhea stools. Nursing denies diarrhea; monitor. Continue Culturelle for bowel protection. Encourage participation in therapies for strengthening and improvement in functional abilities. 11/27/17 Spoke with case management upon multiple occasions today regarding treatment plan. 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 Fernandez. Continue wound care. WBC stable at 8.2 and afebrile. He is on baseline oxygen of 2 liters with BiPAP at night. He is on oral Bumex for gentle diuresis Remains elevated at 150, creatinine 1.6. Continue to monitor carefully [place] remains low, however, is stable at 7.2. Patient does drop below 7.0, will transfuse with 1 unit. Encourage participation in therapies for strengthening and improvement in functional abilities. 11/28/17- Discharge acute- admission to Swing Patient is seen and examined today. She is alert, oriented, pleasant. She had new PICC line inserted to the right arm today as it is planned for her to have 6 weeks of IV antibiotics. We will discharge her from her acute stay and readmit her to swing bed status for continued antibiotics and wound management. It is recommended by infectious disease, Dr. 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 I'll stay at [facility] and will continue to be followed by the medical team. She'll continue to work with physical therapy and occupational therapy. Continue to follow routine labs often as she has been anemic. Hemoglobin today is stable at 7.8. Sodium continues to rise, as does renal function. Our plan will be to hold her Bumex diuretic and give her 1 liter of D5W for gentle hydration. We will recheck basic metabolic panel tomorrow morning. Case discussed with attending, Dr. Caraballo. Time spent with patient: discharge greater than 30 minutes Resuscitation Status: Do Not Resuscitate Discharge Plan - Discharge Disposition Discharge Date: 11/28/17 Disposition: 61 To Any Swing Bed *Condition: Stable Reason For Visit (Visit label in EMR): GI bleed,diabetic foot ulcer,cellulitis - Discharge Medications *Discharge Medications: Continue Carvedilol 12.5 mg PO BID #0 Mirtazapine [Remeron] 15 mg PO HS Insulin Detemir [Levemir] 16 unit SQ HS #0 Lisinopril [Prinivil] 2.5 mg PO DAILY #30 tab Peg 3350 238 G Bottle [Miralax] 17 gm PO DAILY PRN PRN Reason: Constipation Amlodipine [Norvasc] 2.5 mg PO DAILY Sucralfate [Carafate] 1 gm PO QID Bumetanide Tab [Bumex 1 mg Tab] 1 mg PO BID LORazepam [Ativan] 0.5 mg PO DAILY PRN PRN Reason: Anxiety Clopidogrel [Plavix] 75 mg PO DAILY Atorvastatin [Lipitor] 40 mg PO HS Ascorbic Acid 500 mg PO DAILY Amiodarone [Pacerone] 200 mg PO DAILY Acetaminophen [Tylenol] 500 mg PO Q6H PRN PRN Reason: Pain Vitamin E 400 unit PO DAILY Insulin Aspart [NovoLOG] 6 unit SQ WL Insulin Aspart [NovoLOG] 6 unit SQ WS Insulin Aspart [NovoLOG] 1 unit SQ WB #0 [place]-3 Fatty Acids [Fish Oil Concentrate] 1,000 mg PO QID Albuterol Neb (0.083%) [Proventil Neb (0.083%)] 2.5 mg AEROSOL Q6HR PRN PRN Reason: Shortness Of Air Multivit-Min/Folic Acid/Biotin [Women Multivit W-Biotin Gummy] 1 tab PO DAILY Calcium Carbonate/Vitamin D3 [Calcium 600-Vit D3 200 Tablet] 1 tab PO DAILY Ferrous Sulfate 325 mg PO TID Levothyroxine Tab [Synthroid] 25 mcg PO ACB #30 tab Aspirin [Adult Aspirin Regimen] 81 mg PO DAILY - Discharge Packet/Instructions *Diet: Regular diet, chopped meats with syrup thick liquids *Activity: Activity as tolerated *Pain Management/Treatment: as per MAR *Wound Care: per wound team *Expected Signs/Symptoms: N/A *Notify Physician if: N/A *During Business Hours Contact: N/A *After Business Hours Contact: N/A - IRU/GEN Discharge/Transfer - Referrals/Follow Up *Referrals/Follow Up: Rachel Dietz DO [Primary Care Provider] - - Patient Handouts Patient Handouts: Gastrointestinal Bleeding (GEN), Cellulitis (GEN) - Dismissal Complete Discharge Instructions are:: Complete Physician Narrative - Narrative Physician: Debbie Caraballo MD Attestation Narrative: Date: 11/28/17 Time: 1440 Have independently interviewed and examined pt. Chart reviewed. Case discussed with my [employer]. Care plan developed with my supervision; agree with above. Patient resting comfortably. Says food just doesn't taste right. Not drinking too much of thickened liquids. Lungs: decreased, no distress CV: regular AB; soft nt/nd MSE: awake alert Plan: PICC moved to [facility]. Encourage activity. WBAT for right foot. Dismissing to swing bed.
== END 2017-11-28 14:07 | disposition swing bed (61) | DRG 853 ==
LOC: ED 14:10 → EDHOLD 15:44 → SUATTDRO 15:44 → EDHOLD 16:35 → CCU 16:35 → MED 11-14 14:51
PROVIDERS: ADMIT Internal Medicine; ATTEND Hospitalist
PROC: END.EGD (2017-11-12 12:00)

== ENCOUNTER 2017-11-28 14:20 | Inpatient (IN) ==
--- OUTSIDE RECORDS SUMMARY | 2017-11-28 14:38 | External Medical Summary | Referral Summary ---
:1935 Author Care Team Providers Name Role Phone Gemma Chau Primary Care Physician Encounter VC Date(s): 07/29/14 - 07/29/14 [facility] [address] [place] [address] [place] [id number]- Discharge Diagnosis: Benign bladder mass Discharge Disposition: Home or Self Care Attending Physician: Corey Dozier JR, MD Admitting Physician: Corey Dozier JR, MD Referring Physician: Gemma Chau MD Vital Signs Most recent to oldest [Reference Range]: 1 Peripheral Pulse Rate [60-100 bpm] 77 bpm (07/29/14 2:24 PM) Blood Pressure [90-140/60-90 mmHg] 148/60 mmHg *HI* (07/29/14 2:24 PM) Most recent to oldest [Reference Range]: 1 SpO2 93 % (07/29/14 2:24 PM) Problem List Condition Effective Dates Status Health Status Informant Bladder problem(Confirmed)1 Active Bradycardia(Confirmed) Active Cataracts(Confirmed) Resolved Cellulitis(Confirmed) Active COPD (chronic obstructive pulmonary Active disease)(Confirmed) Chronic UTI(Confirmed) Resolved Diabetes(Confirmed) Resolved Diabetic neuropathy(Confirmed) Resolved GERD (gastroesophageal reflux Active disease)(Confirmed) GERD(Confirmed) Resolved Hearing loss(Confirmed) Active Hearing loss(Confirmed) Resolved History of esophageal Resolved cancer(Confirmed) Hypercholesterolemia(Confirmed) Active Hyperlipidemia(Confirmed) Active Hypertension(Confirmed) Resolved Irregular heart rhythm(Confirmed) Resolved Neuropathy(Confirmed) Active Osteoarthritis(Confirmed) Active Osteoarthritis(Confirmed) Resolved PVD (peripheral vascular Active disease)(Confirmed) Peripheral vascular Resolved disease(Confirmed) DM (diabetes mellitus), type Active 2(Confirmed) 1hx of very recurrent urinary tract infections, hx of abnormal wide open left and right ureteral orifices, hx/ch.interstitial cystitis,&amp;amp; bilateral vesicoureteral reflux, urethral stenosis,&amp;amp; ch.trigonitis Allergies, Adverse Reactions, Alerts Substance Reaction Severity Status ciprofloxacin Active niacin ITICHING Severe Active sulfamethoxazole increased eosinophils Active trimethoprim increased eosinophils Active Medications acetaminophen 0 Refill(s) Start Date: 11/01/13 Status: OrderedAspir 81 oral delayed release tablet 1 tabs, Oral, Daily, # 1 bottles, 0 Refill(s), Pharmacy: [id number] , 1 tabs Oral Daily Start Date: 11/06/13 Status: Orderedbudesonide 0.5 mg/2 mL inhalation suspension 2 mL, NEB, BID, # 120 mL, 0 Refill(s) Start Date: 11/01/13 Status: OrderedCalcium 600+D 600 mg-200 intl units oral tablet 1 tabs, Oral, TID, # 270 tabs, 2 Refill(s), Pharmacy: [facility] Start Date: 11/06/13 Status: Orderedcarvedilol 6.25 mg oral tablet See Instructions, 1 tabs Oral BID, # 60 tabs, 1 Refill(s), eRx: [id number], 1 tabs Oral BID Special Instructions: 1 tabs Oral BID Start Date: 07/12/14 Status: Orderedclobetasol 0.05% topical cream rissa, Topical, BID, 0 Refill(s) Start Date: 11/01/13 Status: OrderedColace 100 mg oral capsule 1 caps, Oral, BID, as needed for constipation, # 60 caps, 0 Refill(s), Pharmacy : [facility] [id number], 1 caps Oral BID,PRN:as needed for constipation Start Date: 11/06/13 Status: OrderedDuoNeb 0.5 mg-2.5 mg/3 mL inhalation solution 3 mL, Inhalation, QID, # 1 boxes, 2 Refill(s) Start Date: 11/06/13 Status: Orderedfenofibrate nanocrystallized 145 mg tablet See Instructions, take 1 tablet (145MG) by oral route every day, # 30 tabs, eRx: [id number], take 1 tablet (145MG) by oral route every day Special Instructions: take 1 tablet (145MG) by oral route every day Start Date: 02/08/14 Status: Orderedfenofibrate nanocrystallized 145 mg tablet See Instructions, take 1 tablet (145MG) by oral route every day, # 30 tabs, 2 Refill(s), eRx: [facility] [id number], take 1 tablet (145MG) by oral route every day Special Instructions: take 1 tablet (145MG) by oral route every day Start Date: 03/08/14 Status: OrderedFish Oil 1000 mg oral capsule 2 caps, Oral, TID, # 60 caps, 2 Refill(s), Pharmacy: [facility] [id number], 2 caps Oral TID Start Date: 11/06/13 Status: Orderedfurosemide 20 mg oral tablet See Instructions, TAKE ONE TABLET BY MOUTH ONCE DAILY, # 30 tabs, 1 Refill(s), eRx: [facility] [id number], TAKE ONE TABLET BY MOUTH ONCE DAILY Special Instructions: TAKE ONE TABLET BY MOUTH ONCE DAILY Start Date: 07/12/14 Status: Orderedgabapentin 100 mg oral capsule See Instructions, TAKE ONE CAPSULE BY MOUTH 4 TIMES DAILY, # 120 caps, 1 Refill( s), eRx: [facility] [id number], TAKE ONE CAPSULE BY MOUTH 4 TIMES DAILY Special Instructions: TAKE ONE CAPSULE BY MOUTH 4 TIMES DAILY Start Date: 07/12/14 Status: OrderedHome Oxygen (DME) DME Item indefinately, home and portable, See Instructions, # 1 Each, 0 Refill(s ), Pharmacy: [facility] [id number], indefinately, home and portable, Supply Special Instructions: indefinately, home and portable Start Date: 11/06/13 Status: OrderedHumaLOG 100 units/mL subcutaneous solution See Instructions, INJECT 15 UNITS SUB-Q 3 TIMES BEFORE MEALS, # 10 unknown unit , 2 Refill(s), eRx: [facility], INJECT 15 UNITS SUB-Q 3 TIMES BEFORE MEALS Special Instructions: INJECT 15 UNITS SUB-Q 3 TIMES BEFORE MEALS Start Date: 05/31/14 Status: OrderedINSULIN SYRG0.5/29G MIS See Instructions, INJECT SUB-Q 3 TIMES DAILY OR DIRECTED., # 100 unknown unit , 1 Refill(s), eRx: [facility] [id number], INJECT SUB-Q 3 TIMES DAILY OR DIRECTED. Special Instructions: INJECT SUB-Q 3 TIMES DAILY OR DIRECTED. Start Date: 11/23/13 Status: OrderedLantus 100 units/mL subcutaneous solution 40 units, SubCutaneous, BID, with meals, # 9 vials, 2 Refill(s), Pharmacy: [facility] [id number], 40 units SubCutaneous BID,Instr:with meals Special Instructions: with meals Start Date: 11/06/13 Status: Orderedloratadine 10 mg oral tablet 1 tabs, Oral, Daily, # 30 tabs, 0 Refill(s), Pharmacy: [facility] [id number], 1 tabs Oral Daily Start Date: 11/06/13 Status: OrderedMiraLax oral powder for reconstitution 17 g, Oral, Daily, dissolve in water before taking, # 1 bottles, 2 Refill(s), Pharmacy: [facility] [id number] Special Instructions: dissolve in water before taking Start Date: 11/06/13 Status: Orderedmirtazapine 15 mg oral tablet 1 tabs, Oral, Bedtime (once a day), # 30 tabs, 2 Refill(s), Pharmacy: [facility] [id number], 1 tabsOral Bedtime (once a day) Start Date: 11/06/13 Status: OrderedMucinex DM 30 mg-600 mg oral tablet, extended release 1 tabs, Oral, q12hr, # 60 tabs, 0 Refill(s), Pharmacy: [facility] [id number] Start Date: 11/06/13 Status: Orderedmultivitamins oral tablet 1 tablet, Oral, Daily, # 1 bottles, 0 Refill(s), Pharmacy: [facility] [id number] Start Date: 11/06/13 Status: OrderedProtonix 40 mg oral delayed release tablet 1 tabs, Oral, Daily, # 30 tabs, 2 Refill(s), Pharmacy: [facility] [id number], 1 tabs Oral Daily Start Date: 11/06/13 Status: OrderedPulmicort Respules 0.5 mg/2 mL inhalation suspension 2 mL, NEB, BID, # 1 boxes, 2 Refill(s) Start Date: 11/06/13 Status: OrderedRelion Insulin Syringes 0.5/29G Relion Insulin Syringes 0.5/29G, See Instructions, Inject Sub-Q 5 times daily or as directed., # 150syringes, 5 Refill(s), Pharmacy: [facility] [id number], Inject Sub-Q 5 times daily or as directed. Special Instructions: Inject Sub-Q 5 times daily or as directed. Start Date: 03/25/14 Status: OrderedRELION PRIME RELION PRIME, See Instructions, THREE TIMES DAILY DX 250.00, # 100 Each, 2 Refill(s), Pharmacy: [facility] [id number], THREE TIMES DAILY DX 250.00 Special Instructions: THREE TIMES DAILY DX 250.00 Start Date: 05/17/14 Status: OrderedSaline Mist 0.65% nasal spray 2 sprays, Nasal, QID, # 1 Each, 2 Refill(s), Pharmacy: [facility] [id number] Start Date: 11/06/13 Status: OrderedTriCor 145 mg oral tablet See Instructions, take 1 tablet (145MG) by oral route every day, # 30 tabs, 1 Refill(s), eRx: [facility] [id number], take 1 tablet (145MG) by oral route every day Special Instructions: take 1 tablet (145MG) by oral route every day Start Date: 07/12/14 Status: OrderedVitamin C 250 mg oral tablet, chewable 1 tabs, Chewed, Daily, # 30 tabs, 0 Refill(s), Pharmacy: [facility] [id number] , 1 tabs Chewed Daily Start Date: 11/06/13 Status: Orderedvitamin E 400 intl units oral capsule 1 caps, Oral, Daily, # 1 bottles, 0 Refill(s), Pharmacy: [facility] [id number] , 1 caps Oral Daily Start Date: 11/06/13 Status: OrderedWalker (DME) DME Item indefinate, See Instructions, # 1 Each, 0 Refill(s), Pharmacy: [facility] [id number], indefinate, Supply Special Instructions: indefinate Start Date: 11/06/13 Status: Ordered Results No data available for this section Immunizations Vaccine Date Refusal Reason influenza virus vaccine, live 02/24/13 influenza virus vaccine, live 03/25/07 pneumococcal 23-polyvalent vaccine 07/28/02 tetanus-diphth toxoids (Td) adult/adol 12/25/08 tetanus-diphth toxoids (Td) adult/adol 03/20/06 zoster vaccine live 11/23/10 Procedures Procedure Date Related Diagnosis Body Site Cystoscopy using panendoscope1 07/14/14 Foot examination performed (includes examination 06/07/14 through visual inspection, sensory exam with monofilament, and pulse exam - report when any of the 3 components are completed) (DM) Esophagogastroduodenoscopy with biopsies, normal 2013 Esophagogastroduodenoscopy 2011 Cystogram 2009 Colonoscopy 2008 Esophagogastroduodenoscopy 2007 JUAQUIN BSO - Total abdominal hysterectomy and 2004 bilateral salpingo-oophorectomy Cataract extraction 1999 Appendectomy Hysterectomy Repair of ptosis ou 1Biopsy and fulguration of urethrocele. Social History Social History Type Response Smoking Status Former smoker; Type: Cigarettes Assessment and Plan Extracted from: Title: Ambulatory Patient Education Author: Corey Dozier JR, MD Date: Follow Up With: Where: When: Gemma Chau [address] [place] [address] Drive; [place] [address] Business (1) Within 3 to 5 days Comments: Follow Up With: Where: When: Corey Dozier [address] [place] [address] Drive; [place] [address] REach (1) In 6 months 01/26/2015 Comments:
--- OUTSIDE RECORDS SUMMARY | 2017-11-28 14:40 | External Medical Summary ---
:1935 Author Organization [facility] Address [address] [place] [address] Care Team Providers Name Role Phone MatthewMekhi gonzales Unavailable Unavailable PROBLEMS Type Condition ICD9-CM Code [id number] Code Onset Condition SNOMED Code Dates Status Problem Type 1 diabetes E10.9 Active 052753233 mellitus without complication Problem PVD (peripheral I73.9 Active 510160804 vascular disease) Problem PAD (peripheral I73.9 Active 174415616 artery disease) Problem Chronic J44.9 Active 37236444 obstructive pulmonary disease, unspecified COPD type Problem Hypertension, I10 Active 51371565 unspecified type ALLERGIES No Information ENCOUNTERS Encounter Location Date Diagnosis [facility] [employer] [address] Nov, [address] [place] [address] [facility] [address] October, [address] [place] [address] [facility] [address] October, [address] [place] [address] October, PAD (peripheral artery [facility] [address] disease) I73.9 ; [place] [address] CHF, acute on chronic I50.23 ; Atypical atrial flutter I48.4 ; Chronic kidney disease N18.9 ; Chronic obstructive pulmonary disease, unspecified COPD type J44.9 ; Type 1 diabetes mellitus without complication E10.9 and Hypertension, unspecified type I10 [facility] [address] October, PAD (peripheral artery [address] [place], [place] disease) I73.9 ; Systolic [address] CHF, acute on chronic I50.23 ; Atypical atrial flutter I48.4 ; Chronic kidney disease N18.9 ; Chronic obstructive pulmonary disease, unspecified COPD type J44.9 ; Type 1 diabetes mellitus without complication E10.9 and Hypertension, unspecified type I10 [facility] [address] October, [address] [place] [address] [facility] [address] [facility] Sep, [address] [place] [address] Sep, PAD (peripheral artery [facility] [address] disease) I73.9 ; [place] [address] CHF, acute on chronic I50.23 ; Atypical atrial flutter I48.4 ; Chronic kidney disease N18.9 ; Chronic obstructive pulmonary disease, unspecified COPD type J44.9 ; Type 1 diabetes mellitus without complication E10.9 and Hypertension, unspecified type I10 IMMUNIZATIONS No Known Immunizations SOCIAL HISTORY Never Assessed REASON FOR VISIT Peripherals PLAN OF CARE VITAL SIGNS MEDICATIONS Unknown Medications RESULTS No Results PROCEDURES No Known procedures INSTRUCTIONS MEDICATIONS ADMINISTERED No Known Medications MEDICAL (GENERAL) HISTORY Type Description Date Medical History Esophageal CA Medical History Chronic obstructive pulmonary disease (COPD) Medical History Hypercholesterolemia Medical History Hypertension Medical History Sleep apnea Medical History Congestive heart failure (CHF) Medical History Type 2I diabetes Medical History HX of MRSA Surgical History Cystogram Surgical History Colonoscopy Surgical History Bilateral salpingo-oophoretomy Surgical History Hysterectomy Surgical History Bilateral Cataract removal Surgical History Appendectomy Surgical History Several toes removal
--- OUTSIDE RECORDS SUMMARY | 2017-11-28 14:40 | External Medical Summary ---
:1935 Author Organization [facility] Address [address] [place] [address] Care Team Providers Name Role Phone Mekhi Hernandez Unavailable Unavailable PROBLEMS Type Condition ICD9-CM Code [id number] Code Onset Condition SNOMED Code Dates Status Problem Type 1 diabetes E10.9 Active 143905257 mellitus without complication Problem PVD (peripheral I73.9 Active 030898049 vascular disease) Problem PAD (peripheral I73.9 Active 756205398 artery disease) Problem Chronic J44.9 Active 91231521 obstructive pulmonary disease, unspecified COPD type Problem Hypertension, I10 Active 88264438 unspecified type ALLERGIES Substance Reaction Event Type Date Status Trimethoprim Unknown Drug Allergy October, Active Sulfamethoxazole Unknown Drug Allergy October, Active Niacin Unknown Drug Allergy October, Active ENCOUNTERS Encounter Location Date Diagnosis [facility] [address] Nov, [address] [place] [address] [facility] [address] October, [address] [place] [address] [facility] [address] October, [address] [place] [address] October, PAD (peripheral artery [facility] [address] disease) I73.9 ; [place] [address] CHF, acute on chronic I50.23 ; Atypical atrial flutter I48.4 ; Chronic kidney disease N18.9 ; Chronic obstructive pulmonary disease, unspecified COPD type J44.9 ; Type 1 diabetes mellitus without complication E10.9 and Hypertension, unspecified type I10 [facility] [employer] [address] October, PAD (peripheral artery [address] [place], [place] disease) I73.9 ; Systolic [address] CHF, acute on chronic I50.23 ; Atypical atrial flutter I48.4 ; Chronic kidney disease N18.9 ; Chronic obstructive pulmonary disease, unspecified COPD type J44.9 ; Type 1 diabetes mellitus without complication E10.9 and Hypertension, unspecified type I10 [facility] [address] [facility] October, [address] [place] [address] [facility] [address] [facility] Sep, [address] [place] [address] Sep, PAD (peripheral artery [facility] [address] disease) I73.9 ; [place] [address] CHF, acute on chronic I50.23 ; Atypical atrial flutter I48.4 ; Chronic kidney disease N18.9 ; Chronic obstructive pulmonary disease, unspecified COPD type J44.9 ; Type 1 diabetes mellitus without complication E10.9 and Hypertension, unspecified type I10 IMMUNIZATIONS No Known Immunizations SOCIAL HISTORY Never Assessed REASON FOR VISIT F/u peripherals PLAN OF CARE VITAL SIGNS Height 64 in 2017-10-10 Weight 175.2 lbs 2017-10-10 BMI 30.07 kg/m2 2017-10-10 Oximetry 97 % 2017-10-10 Heart Rate 70 w/2L o2 /min 2017-10-10 Blood pressure systolic 130 mm Hg 2017-10-10 Blood pressure diastolic 62 mm Hg 2017-10-10 MEDICATIONS Medication Instructions Dosage Frequency Start End Duration Status Date Date Ascorbic Acid 500 Orally Once a 1 tablet 24h Active MG day Vitamin E 400 Orally Once a 1 tablet 24h Active UNIT day Lisinopril 2.5 MG Orally Once a 1 tablet 24h Active day Calcium + D Orally QD 1 tablet 24h Active 500-1000-40 with meals MG-UNT-MCG Acetaminophen 500 Orally every 6 1 capsule 6h Active MG hrs as needed Oxygen 2L Active Carvedilol 12.5 Orally BID 1 TAB 12h Active MG Atorvastatin Orally Once a 1 tablet 24h Active Calcium 40 MG day multivitamin po qd 24h Active Aspirin 81 MG Orally Once a 1 tablet 24h 30 day(s) Active day Benadryl Allergy Orally PRN 1 tablet Active 25 MG as needed Bumex 1 MG 3 TAB 24h Active Amiodarone HCl Orally Once a 1 tablet 24h Active 200 MG day Albuterol Sulfate Inhalation QD 24h Active (2.5 MG/3ML) 0.083% Lorazepam 0.5 MG Orally Once a 1 tablet Active day/PRN as needed Iron 325 (65 Fe) Orally QD 1 tablet 24h Active MG NovoLog 100 Subcutaneous Active UNIT/ML DIR Amlodipine Orally Once a 1 tablet 24h Active Besylate 2.5 MG day Mirtazapine 15 MG Orally QHS 1 tablet Active at bedtime Plavix 75 MG Orally Once a 1 tablet 24h 30 day(s) Active day MiraLax - Orally PRN Active [place] 3 1000 MG Orally TID 1 capsule 8h Active Levothyroxine Orally Once a 1 tablet 24h Active Sodium 25 MCG day on an empty stomach in the morning Levemir 100 Subcutaneous Active UNIT/ML DIR RESULTS No Results PROCEDURES No Known procedures [...]
--- OUTSIDE RECORDS SUMMARY | 2017-11-28 14:40 | External Medical Summary ---
:1935 Author Organization [facility] Address [address] [place] [address] Care Team Providers Name Role Phone Mekhi Hernandez Unavailable Unavailable PROBLEMS Type Condition ICD9-CM Code [id number] Code Onset Condition SNOMED Code Dates Status Problem Type 1 diabetes E10.9 Active 254204716 mellitus without complication Problem PVD (peripheral I73.9 Active 772664747 vascular disease) Problem PAD (peripheral I73.9 Active 050317366 artery disease) Problem Chronic J44.9 Active 38663749 obstructive pulmonary disease, unspecified COPD type Problem Hypertension, I10 Active 24622896 unspecified type ALLERGIES No Information ENCOUNTERS Encounter Location Date Diagnosis [address] Nov, [address] [address] [facility] Nov, [address] [address] [facility] October, [address] [address] [facility] October, [address] [address] [place] [address] [place] [address] [facility] October, [address] [address] [facility] October, [address] [address] October, PAD (peripheral artery [facility] [address] disease) I73.9 ; [place] [address] CHF, acute on chronic I50.23 ; Atypical atrial flutter I48.4 ; Chronic kidney disease N18.9 ; Chronic obstructive pulmonary disease, unspecified COPD type J44.9 ; Type 1 diabetes mellitus without complication E10.9 and Hypertension, unspecified type I10 [place] [address] [facility] October, PAD (peripheral artery [address] [place], [place] disease) I73.9 ; Systolic [address] CHF, acute on chronic I50.23 ; Atypical atrial flutter I48.4 ; Chronic kidney disease N18.9 ; Chronic obstructive pulmonary disease, unspecified COPD type J44.9 ; Type 1 diabetes mellitus without complication E10.9 and Hypertension, unspecified type I10 [address] October, [address] [address] Sep, [address] [address] Sep, PAD (peripheral artery [facility] disease) I73.9 ; [place] [address] CHF, acute on chronic I50.23 ; Atypical atrial flutter I48.4 ; Chronic kidney disease N18.9 ; Chronic obstructive pulmonary disease, unspecified COPD type J44.9 ; Type 1 diabetes mellitus without complication E10.9 and Hypertension, unspecified type I10 IMMUNIZATIONS No Known Immunizations SOCIAL HISTORY Never Assessed REASON FOR VISIT appt cancelled PLAN OF CARE VITAL SIGNS MEDICATIONS Unknown [...]
--- OUTSIDE RECORDS SUMMARY | 2017-11-28 14:40 | External Medical Summary ---
:1935 Author Organization [facility] Address [address] [place] [address] Care Team Providers Name Role Phone Mekhi Hernandez Unavailable Unavailable PROBLEMS Type Condition ICD9-CM Code [id number] Code Onset Condition SNOMED Code Dates Status Problem Type 1 diabetes E10.9 Active 250455751 mellitus without complication Problem PVD (peripheral I73.9 Active 382682841 vascular disease) Problem PAD (peripheral I73.9 Active 076207126 artery disease) Problem Chronic J44.9 Active 86923516 obstructive pulmonary disease, unspecified COPD type Problem Hypertension, I10 Active 46421876 unspecified type ALLERGIES Substance Reaction Event Type Date Status Trimethoprim Unknown Drug Allergy October, Active Sulfamethoxazole Unknown Drug Allergy October, Active Niacin Unknown Drug Allergy October, Active ENCOUNTERS Encounter Location Date Diagnosis [facility] [address] Nov, [address] [place] [address] [facility] [address] October, [address] [place] [address] [facility] [address] October, [address] [place] [address] October, PAD (peripheral artery [facility] [address] disease) I73.9 ; [place] [address] CHF, acute on chronic I50.23 ; Atypical atrial flutter I48.4 ; Chronic kidney disease N18.9 ; Chronic obstructive pulmonary disease, unspecified COPD type J44.9 ; Type 1 diabetes mellitus without complication E10.9 and Hypertension, unspecified type I10 [facility] [address] October, PAD (peripheral artery [address] [place] disease) I73.9 ; Systolic [address] CHF, acute on chronic I50.23 ; Atypical atrial flutter I48.4 ; Chronic kidney disease N18.9 ; Chronic obstructive pulmonary disease, unspecified COPD type J44.9 ; Type 1 diabetes mellitus without complication E10.9 and Hypertension, unspecified type I10 [facility] [address] [facility] October, [address] [place] [address] [facility] [place] [address] [address] [facility] Sep, [address] [place] [address] Sep, PAD (peripheral artery [facility] [address] disease) I73.9 ; [place] [address] CHF, acute on chronic I50.23 ; Atypical atrial flutter I48.4 ; Chronic kidney disease N18.9 ; Chronic obstructive pulmonary disease, unspecified COPD type J44.9 ; Type 1 diabetes mellitus without complication E10.9 and Hypertension, unspecified type I10 IMMUNIZATIONS No Known Immunizations SOCIAL HISTORY Never Assessed REASON FOR VISIT Peripherals @ [facility] PLAN OF CARE VITAL SIGNS Height 64 in 2017-10-07 Weight 175 lbs 2017-10-07 BMI 30.04 kg/m2 2017-10-07 Oximetry 97 % 2017-10-07 Heart Rate 65 /min 2017-10-07 Blood pressure systolic 130 mm Hg 2017-10-07 Blood pressure diastolic 80 mm Hg 2017-10-07 MEDICATIONS Medication Instructions Dosage Frequency Start End Duration Status Date Date Levothyroxine Orally Once a 1 tablet 24h Active Sodium 25 MCG day on an empty stomach in the morning Iron 325 (65 Fe) Orally QD 1 tablet 24h Active MG Levemir 100 Subcutaneous Active UNIT/ML DIR Vitamin E 400 Orally Once a 1 tablet 24h Active UNIT day Carvedilol 12.5 Orally BID 1 TAB 12h Active MG Plavix 75 MG Orally Once a 1 tablet 24h October, day(s) Active day 2017 Amlodipine Orally Once a 1 tablet 24h Active Besylate 2.5 MG day Lisinopril 2.5 MG Orally Once a 1 tablet 24h Active day Amiodarone HCl Orally Once a 1 tablet 24h Active 200 MG day Carafate 1 GM Orally QID 1 tablet 6h Active at bedtime on an empty stomach before meals Atorvastatin Orally Once a 1 tablet 24h Active Calcium 40 MG day Benadryl Allergy Orally PRN 1 tablet Active 25 MG as needed Cephalexin 500 MG Orally every 12 1 capsule 12h Active hrs Aspirin 81 MG Orally Once a 1 tablet 24h October, day(s) Active day 2017 Oxygen 2L Active multivitamin po qd 24h Active Acetaminophen 500 Orally every 6 1 capsule 6h Active MG hrs as needed NovoLog 100 Subcutaneous Active UNIT/ML DIR MiraLax - Orally PRN Active Ascorbic Acid 500 Orally Once a 1 tablet 24h Active MG day [place] 3 1000 MG Orally TID 1 capsule 8h Active Albuterol Sulfate Inhalation QD 24h Active (2.5 MG/3ML) 0.083% Mirtazapine 15 MG Orally QHS 1 tablet Active at bedtime Bumex 1 MG 3 TAB 24h Active Calcium + D Orally QD 1 tablet 24h Active 500-1000-40 with meals [id number]-MCG RESULTS No Results PROCEDURES No Known procedures [...]
--- OUTSIDE RECORDS SUMMARY | 2017-11-28 14:40 | External Medical Summary ---
:1935 Author Organization [facility] Address [address] [place] [address] Care Team Providers Name Role Phone MatthewMekhi gonzales Unavailable Unavailable PROBLEMS Type Condition ICD9-CM Code IHP40-[id number] Code Onset Condition SNOMED Code Dates Status Problem Type 1 diabetes E10.9 Active 336943729 mellitus without complication Problem PVD (peripheral I73.9 Active 950974716 vascular disease) Problem PAD (peripheral I73.9 Active 103064271 artery disease) Problem Chronic J44.9 Active 39075175 obstructive pulmonary disease, unspecified COPD type Problem Hypertension, I10 Active 13497263 unspecified type ALLERGIES No Information ENCOUNTERS Encounter Location Date Diagnosis [address] Nov, [address] [address] October, [address] [address] October, [address] [address] October, [address] [address] October, [address] [address] October, [facility] [address] [facility]) I73.9 ; [place] [address] CHF, acute on chronic I50.23 ; Atypical atrial flutter I48.4 ; Chronic kidney disease N18.9 ; Chronic obstructive pulmonary disease, unspecified COPD type J44.9 ; Type 1 diabetes mellitus without complication E10.9 and Hypertension, unspecified type I10 [address] 07 Oct, 2017 PAD (peripheral artery [facility]iology-[address] disease) I73.9 ; Systolic [address] CHF, acute on chronic I50.23 ; Atypical atrial flutter I48.4 ; Chronic kidney disease N18.9 ; Chronic obstructive pulmonary disease, unspecified COPD type J44.9 ; Type 1 diabetes mellitus without complication E10.9 and Hypertension, unspecified type I10 [address] October, [address] [address] Sep, [address] [address] Sep, PAD (peripheral artery [facility] disease) I73.9 ; [place] [address] CHF, acute on chronic I50.23 ; Atypical atrial flutter I48.4 ; Chronic kidney disease N18.9 ; Chronic obstructive pulmonary disease, unspecified COPD type J44.9 ; Type 1 diabetes mellitus without complication E10.9 and Hypertension, unspecified type I10 IMMUNIZATIONS No Known Immunizations SOCIAL HISTORY Never Assessed REASON FOR VISIT peripherals tommorrow PLAN OF CARE VITAL SIGNS MEDICATIONS Unknown [...]
--- OUTSIDE RECORDS SUMMARY | 2017-11-28 14:40 | External Medical Summary ---
:1935 Author Organization [facility] Address [address] [place] [address] Care Team Providers Name Role Phone MatthewMekhi gonzales Unavailable Unavailable PROBLEMS Type Condition ICD9-CM Code [id number] Code Onset Condition SNOMED Code Dates Status Problem Type 1 diabetes E10.9 Active 743753076 mellitus without complication Problem PVD (peripheral I73.9 Active 705586152 vascular disease) Problem PAD (peripheral I73.9 Active 158678597 artery disease) Problem Chronic J44.9 Active 72845761 obstructive pulmonary disease, unspecified COPD type Problem Hypertension, I10 Active 54286726 unspecified type ALLERGIES No Information ENCOUNTERS Encounter Location Date Diagnosis [facility] [address] Nov, [address] [place] [address] [facility] [address] October, [address] [place] [address] [facility] [address] October, [address] [place] [address] October, PAD (peripheral artery [facility] [address] disease) I73.9 ; [place] [address] CHF, acute on chronic I50.23 ; Atypical atrial flutter I48.4 ; Chronic kidney disease N18.9 ; Chronic obstructive pulmonary disease, unspecified COPD type J44.9 ; Type 1 diabetes mellitus without complication E10.9 and Hypertension, unspecified type I10 [facility] [address] October, PAD (peripheral artery [address] [place] disease) I73.9 ; Systolic [address] CHF, acute on chronic I50.23 ; Atypical atrial flutter I48.4 ; Chronic kidney disease N18.9 ; Chronic obstructive pulmonary disease, unspecified COPD type J44.9 ; Type 1 diabetes mellitus without complication E10.9 and Hypertension, unspecified type I10 [facility] [address] October, [address] [place] [address] [facility] [address] [facility] Sep, [address] [place] [address] Sep, PAD (peripheral artery [facility] [address] disease) I73.9 ; [place] [address] CHF, acute on chronic I50.23 ; Atypical atrial flutter I48.4 ; Chronic kidney disease N18.9 ; Chronic obstructive pulmonary disease, unspecified COPD type J44.9 ; Type 1 diabetes mellitus without complication E10.9 and Hypertension, unspecified type I10 IMMUNIZATIONS No Known Immunizations SOCIAL HISTORY Never Assessed REASON FOR VISIT Appt PLAN OF CARE VITAL SIGNS MEDICATIONS Unknown [...]
--- OUTSIDE RECORDS SUMMARY | 2017-11-28 14:40 | External Medical Summary | Referral Summary ---
:1935 Author Organization [facility] Address [address] [place] [address] [place] [address] Care Team Providers Name Role Phone Rachel Dietz Primary Care Physician Encounter VC Date(s): 11/27/16 - 11/27/16 [facility] [place] [address] [place] Discharge Disposition: 01-Home or Self Care Attending Physician: Rachel Dietz DO Admitting Physician: Rachel Dietz DO Vital Signs Most recent to oldest [Reference Range]: 1 Peripheral Pulse Rate [60-100 bpm] 90 bpm (11/27/16 1:48 PM) Blood Pressure [90-140/60-90 mmHg] 160/80 mmHg *HI* (11/27/16 1:48 PM) SpO2 98 % (11/27/16 1:48 PM) Problem List Condition Effective Dates Status Health Status Informant Acute pain(Confirmed) Active At risk for injury(Confirmed)1 Active At risk of pressure sore(Confirmed) Active Bladder problem(Confirmed)2 Active Bradycardia(Confirmed) Active Cataracts(Confirmed) Resolved Cellulitis(Confirmed) Active COPD (chronic obstructive pulmonary Active disease)(Confirmed) Chronic UTI(Confirmed) Resolved Congestive heart failure Active (CHF)(Confirmed) Charcot's arthropathy, Active diabetic(Confirmed) Charcot foot due to diabetes Active mellitus(Confirmed) Diabetes(Confirmed) Resolved Diabetic neuropathy(Confirmed) Resolved Fluid imbalance(Confirmed)3 Active GERD (gastroesophageal reflux Active disease)(Confirmed) GERD(Confirmed) Resolved S/P placement of cardiac Active pacemaker(Confirmed) Hearing loss(Confirmed) Active Hearing loss(Confirmed) Resolved History of esophageal Resolved cancer(Confirmed) Hypercholesterolemia(Confirmed) Active Hyperlipidemia(Confirmed) Active Hypertension(Confirmed) Resolved Impaired gas exchange(Confirmed)4 Active Impaired spontaneous Active ventilation(Confirmed)5 Irregular heart rhythm(Confirmed) Resolved Methicillin resistant Staphylococcus Active aureus(Confirmed)6 Neuropathy(Confirmed) Active Nonstageable pressure Active ulcer(Confirmed) Osteoarthritis(Confirmed) Active Osteoarthritis(Confirmed) Resolved PVD (peripheral vascular Active disease)(Confirmed) Peripheral vascular Resolved disease(Confirmed) Tissue perfusion Active alteration(Confirmed)7 DM (diabetes mellitus), type Active 2(Confirmed) Type 2 diabetes mellitus with Active Charcot's joint arthropathy(Confirmed) 1Problem added automatically by system based on initiation of Risk for Injury Plan of Nhrw4kn of very recurrent urinary tract infections, hx of abnormal wide open left and right ureteral orifices, hx/ch.interstitial cystitis,&amp; amp;bilateral vesicoureteral reflux, urethral stenosis,&amp;amp; ch.wbyhmzckxy7Aqthwqa added automatically by system based on initiation of Fluid Volume Imbalance Plan of [id number] added automatically by system based on initiation of Impaired Gas Exchange Plan of Tkrb5Pconial added automatically by system based on initiation of Impaired Spontaneous Ventilation Plan of [id number] from Finger collected 11/11/15 14:10:00 [id number] added automatically by system based on initiation of Tissue Perfusion Cerebral Plan of Care Allergies, Adverse Reactions, Alerts Substance Reaction Severity Status Bactrim DS Active ciprofloxacin Active niacin ITICHING Severe Active sulfamethoxazole increased eosinophils Active trimethoprim increased eosinophils Active Medications acetaminophen 650 mg oral tablet, extended release 650 mg, Oral, Daily, as needed for pain, # 24 tabs, 3 Refill(s), Pharmacy: [facility] 2427, 650 mg Oral Daily,PRN:as needed for pain Start Date: 09/20/15 Status: Orderedamiodarone 200 mg oral tablet See Instructions, TAKE ONE TABLET BY MOUTH ONCE DAILY, # 30 tabs, 3 Refill(s), eRx: [facility] 2427 Start Date: 10/24/16 Status: OrderedamLODIPine 2.5 mg oral tablet See Instructions, TAKE ONE TABLET BY MOUTH ONCE DAILY, # 30 tabs, eRx: [facility] 2427 Start Date: 11/26/16 Status: Orderedascorbic acid 500 mg, Oral, Daily, 0 Refill(s) Start Date: 07/16/15 Status: Orderedbisacodyl 10 mg rectal suppository 10 mg 1 supp, Rectal, Daily, as needed for constipation, # 10 supp, 0 Refill(s) Start Date: 08/18/15 Status: Orderedbumetanide 0.5 mg oral tablet See Instructions, TAKE TWO TABLETS BY MOUTH DAILY, # 120 tabs, 2 Refill(s), Pharmacy: [facility] 2428, TAKE TWO TABLETS BY MOUTH DAILY Start Date: 08/27/16 Status: OrderedCalcium 600+D 600 mg-200 intl units oral tablet 1 tabs, Oral, BID, # 270 tabs, 2 Refill(s), Pharmacy: [facility] 242 Start Date: 11/06/13 Status: Orderedcarvedilol 12.5 mg oral tablet See Instructions, TAKE ONE TABLET BY MOUTH TWICE DAILY, # 60 tabs, 3 Refill(s), eRx: [facility] 2428 Start Date: 09/27/16 Status: OrderedColace 100 mg, Oral, BID, 0 Refill(s) Start Date: 07/16/15 Status: OrdereddiphenhydrAMINE 25 mg oral capsule 25 mg 1 caps, Oral, QID, as needed for itching, 0 Refill(s) Start Date: 08/18/15 Status: OrderedDuoNeb 0.5 mg-2.5 mg/3 mL inhalation solution 3 mL, NEB, QID, # 30 Each, 0 Refill(s), other reason (Rx) Start Date: 07/25/15 Status: Orderedferrous sulfate 325 mg, Oral, Daily, 0 Refill(s) Start Date: 08/24/16 Status: OrderedINSULIN SYRG0.5/29G MIS See Instructions, USE TO INJECT INSULIN 5 TIMES DAILY OR DIRECTED., # 200 unknown unit, eRx: [facility], USE TO INJECT INSULIN 5 TIMES DAILY OR DIRECTED. Start Date: 07/30/16 Status: OrderedINSULIN SYRG0.5/29G MIS See Instructions, USE TO INJECT INSULIN 5 TIMES DAILY OR DIRECTED., # 200 unknown unit, 3 Refill(s), eRx: [facility]28, USE TO INJECT INSULIN 5 TIMES DAILY OR DIRECTED. Start Date: 09/25/16 Status: Orderedinsulin syringe 0.5/29G MIS insulin syringe 0.5/29G MIS, See Instructions, Use to inject insulin 5 times daily or as directed, #150 Each, 0 Refill(s), Pharmacy: [place] [id number], Use to inject insulin 5 times daily or as directed Start Date: 06/08/16 Status: OrderedLevemir 100 units/mL subcutaneous solution See Instructions, INJECT 20 UNITS SUBCUTANEOUSLY AT BEDTIME., # 10 unknown unit , eRx: [place] [id number] Start Date: 11/26/16 Status: Orderedlisinopril 2.5 mg oral tablet See Instructions, TAKE ONE TABLET BY MOUTH ONCE DAILY, # 30 tabs, 3 Refill(s), Pharmacy: [place] [id number] Start Date: 11/21/16 Status: OrderedLISINOPRIL 2.5MG TAB See Instructions, TAKE ONE TABLET BY MOUTH ONCE DAILY, # 30 tabs, eRx: [place] [id number], TAKE ONE TABLET BY MOUTH ONCE DAILY Start Date: 10/17/16 Status: OrderedLORazepam 0.5 mg oral tablet 1-2tabs, Oral, TID, as needed for anxiety, MUST LAST 30 DAYS, # 30 tabs, 0 Refill(s) Start Date: 11/27/16 Status: OrderedMiraLax 17 g 1 packets, Oral, Daily, 0 Refill(s) Start Date: 07/25/15 Status: OrderedMiscellaneous DME DME Item [employer]ios Nebulizer accessories (tubing, mouthpiece, filter)/daily/lifetime , See Instructions, #1 Each, 1 Refill(s), Pharmacy: [id number], [employer]ios Nebulizer accessories (tubing, mouthpiece, filter)/daily/lifetime, Supply Start Date: 03/23/16 Status: OrderedMucinex 600 mg oral tablet, extended release 600 mg, Oral, q12hr, as needed for cough, # 20 tabs, 3 Refill(s), Pharmacy: [place] [address], 600 mg Oral q12hr,PRN:as needed for cough Start Date: 09/20/15 Status: OrderedNEBULIZER NEBULIZER, See Instructions, NEBULIZER AND ALL THE SUPPLIES, # 1 Each, 0 Refill( s) Start Date: 09/20/15 Status: OrderedNorco 5 mg-325 mg oral tablet 1-2 tabs, Oral, q4hr, as needed for pain, # 30 tabs, 0 Refill(s) Start Date: 07/26/16 Status: OrderedNovoLOG 100 units/mL subcutaneous solution See Instructions, 4 units SubCutaneous WITH BREAKFAST AND 6 units with LUNCH AND 6 UNITS WITH SUPPER, # 10 mL, 5 Refill(s), Pharmacy: [facility] , 4 units SubCutaneous WITH BREAKFAST AND 6 units with LUNCH AND 6 UNITS WITH SUPPER Start Date: 11/06/16 Status: Orderedrelion prime glucose test strip relion prime glucose test strip, See Instructions, use to check blood glucose 3 times daily DX: E11.9, # 2 boxes, 2 Refill(s), Pharmacy: [facility] , use to check blood glucose 3 times daily; DX: E11.9 Start Date: 10/17/16 Status: Orderedsucralfate 1 g oral tablet See Instructions, TAKE ONE TABLET BY MOUTH BEFORE MEAL(S) AND ONE AT BEDTIME, # 120 tabs, [facility] Start Date: 11/06/16 Status: Ordered Results No data available for [...] using panendoscope2 07/14/14 Foot examination performed (includes examination 06/07/14 through visual inspection, sensory exam with monofilament, and pulse exam - report when any of the 3 components are completed) (DM) Esophagogastroduodenoscopy with biopsies, normal 2013 Esophagogastroduodenoscopy 2011 Cystogram 2009 Colonoscopy 2008 Esophagogastroduodenoscopy3 2007 JUAQUIN BSO - Total abdominal hysterectomy and 2004 bilateral salpingo-oophorectomy Cataract extraction 1999 Appendectomy Hysterectomy Pacemaker4 Repair of ptosis ou 1Pathology returned positive for recurrence of her esophageal cancer. Appointment already set up with Dr. Newman.2Biopsy and fulguration of urethrocele.3Biopsy positive for esophageal [id number] 2016 Social History Social History Type Response Smoking Status Former smoker; Type: Cigarettes Assessment and Plan No data available for this section
[2017-11-28 14:59] VITALS: BMI 29.0
[2017-11-28] MEDS ORDERED: D5W 1,000 ML IV SCH (15:00)
[2017-11-28] MEDS ORDERED: MORPHINE SULFATE 4mg INJECTION IVP PRN (15:02)
[2017-11-28] MEDS ORDERED: METOCLOPRAMIDE 10mg/2ml INJECTION IVP PRN (15:02)
[2017-11-28] MEDS ORDERED: ALBUTEROL 2.5mg/3ml (0.083%) NEB AEROSOL PRN (15:02)
[2017-11-28] MEDS ORDERED: DEXTROSE 50% SYRINGE 50ml (1 AMP) IVP PRN (15:02)
[2017-11-28] MEDS ORDERED: LORazepam 0.5 MG TABLET PO PRN (15:02)
[2017-11-28] MEDS: SUCRALFATE 1gm/10ml ORAL LIQUID PO SCH ×2 (17:51→21:08)
[2017-11-28] MEDS: CARVEDILOL 12.5 MG TABLET PO SCH (17:52)
[2017-11-28] MEDS: PANTOPRAZOLE 40 MG TABLET PO SCH (18:00)
[2017-11-28] MEDS: LACTOBACILLUS (15B cfu) CAPSULE PO SCH (18:00)
[2017-11-28] MEDS: INSULIN ASPART 100unit/ml INJECTION SQ SCH (18:01)
[2017-11-28] MEDS: ALBUTEROL 2.5mg/3ml (0.083%) NEB AEROSOL SCH (20:41)
[2017-11-28] MEDS: MIRTAZAPINE 15 MG TABLET PO SCH (21:07)
[2017-11-28] MEDS: PIPERACILLIN/TAZOBACTAM 2.25 GM in NS 100 ML IV SCH (21:07)
[2017-11-28] MEDS: ATORVASTATIN 40 MG TABLET PO SCH (21:12)
[2017-11-28] MEDS: INSULIN DETEMIR 100unit/ml INJECTION SQ SCH (21:12)
[2017-11-29] MEDS: PIPERACILLIN/TAZOBACTAM 2.25 GM in NS 100 ML IV SCH ×4 (01:01→18:47)
[2017-11-29] MEDS: SUCRALFATE 1gm/10ml ORAL LIQUID PO SCH ×4 (06:44→20:13)
[2017-11-29] MEDS: PANTOPRAZOLE 40 MG TABLET PO SCH ×2 (06:44→17:14)
[2017-11-29] MEDS: LEVOTHYROXINE 25 MCG TABLET PO SCH (06:44)
--- NOTE | 2017-11-29 08:47 | General Surgery Progress Note ---
Subjective Patient reports: bowel movement (she states a couple times a day, very soft) Narrative: She is in the recliner, just finished breakfast. Denies nausea, but states she "gets full" quickly. Liquids are thickened, when questioned about difficulty swallowing, she states "sometimes." Denies chest pain. She is on O2 chronically. Denies abd pain. Right foot has some feeling in it, but she states it is not "pain." - Vital Signs Last Vital Signs Temp 97.8 F 11/29/17 07:18 Pulse 72 11/29/17 07:18 Resp 20 11/29/17 07:18 BP 159/67 H 11/29/17 07:18 Pulse Ox 96 11/29/17 07:18 - Laboratory Result Diagrams: 11/29/17 03:55 11/29/17 03:55 Laboratory Tests 11/21/17 11/22/17 11/23/17 11:43 04:16 04:16 Hgb 7.7 L 7.9 L 7.5 L 11/24/17 11/25/17 11/26/17 03:57 03:39 03:52 Hgb 7.9 L 7.3 L 7.9 L 11/27/17 11/28/17 11/29/17 04:33 04:09 03:55 Hgb 7.2 L 7.8 L 7.2 L - Abnormal Exam Skin: Right foot: Posterior Heel black dry eschar ulcer. Remaining toes misshapen and curled with dry eschar on dorsal side. Large medial wound shows improving granulation at the perimeter as well as a new "island" of granulation at the center. Creamy and fibrinous exudate between granulation, some of which was able to be wiped away with gauze. Small medial wound at 1st met head area less than 1 cm in diameter, soft center , palpation does not produce any fluid or purulence. Dorsum of foot with faint erythema, does not extend to ankle. - Normal Exam General: awake, alert, oriented, no acute distress Respiratory: clear bilaterally, no labored breathing (with O2 by NC) Abdominal: soft, non-tender Psychiatric: normal affect Assessment and Plan (1) Esophageal ulcer with bleeding Current Visit: Yes Status: Acute (2) Acute anemia Current Visit: No Status: Resolved (3) Osteomyelitis of ankle or foot Current Visit: No Status: Acute (4) Unstageable pressure ulcer of right heel Current Visit: Yes Status: Acute (5) Esophageal cancer Current Visit: Yes Status: Chronic Qualifiers: Malignant neoplasm of esophagus location: lower third Qualified Code(s): C15.5 - Malignant neoplasm of lower third of esophagus Plan: HGB has been stable in the 7 range for a week. Continue treatment for esophageal ulceration associated with her esophageal cancer. Continue to monitor HGB. Grade 3 DFU with osteomyelitis right foot is slowly improving, showing new granulation at the perimeter and in the center. Continue the Aquacel Q3 days and prn, and ABX per Dr. Fernandez. Small ulceration medial met head area is now soft, no purulence. Re re-start the Aquacel in the area, Q3d and prn. Dry eschar wounds dorsum of toes and large unstageable dry eschar of heel will continue Betadine paint BID. Off load with foam boot. May use "surgical shoe" for short distance (like the distance to the bathroom) ambulation with PT, she will not be able to wear her regular shoe for any significant amount of walking.The surgical shoe can be put over the dressings, but that would at least get the joints and muscles moving a little. Hospital Course Summary Disclaimer: The visit summary below is not to be considered part of the above Progress Note. Hospital Course: 11/29/2017 Wound/Surgical note: HGB has been stable in the 7 range for a week. Continue treatment for esophageal ulceration associated with her esophageal cancer. Continue to monitor HGB. Grade 3 DFU with osteomyelitis right foot is slowly improving, showing new granulation at the perimeter and in the center. Continue the Aquacel Q3 days and prn, and ABX per Dr. Fernandez. Small ulceration medial met head area is now soft, no purulence. Re re-start the Aquacel in the area, Q3d and prn. Dry eschar wounds dorsum of toes and large unstageable dry eschar of heel will continue Betadine paint BID. Off load with foam boot. May use "surgical shoe" for short distance (like the distance to the bathroom) ambulation with PT, she will not be able to wear her regular shoe for any significant amount of walking.The surgical shoe can be put over the dressings, but that would at least get the joints and muscles moving a little.
[2017-11-29] MEDS ORDERED: BUMETANIDE 1 MG TABLET PO SCH (09:00)
[2017-11-29] MEDS: INSULIN ASPART 100unit/ml INJECTION SQ SCH ×3 (09:26→18:13)
[2017-11-29] MEDS: ASPIRIN 81 MG CHEWABLE TABLET PO SCH (09:26)
[2017-11-29] MEDS: FERROUS SULFATE 324 MG TABLET PO SCH (09:26)
[2017-11-29] MEDS: LISINOPRIL 2.5 MG TABLET PO SCH (09:26)
[2017-11-29] MEDS: LACTOBACILLUS (15B cfu) CAPSULE PO SCH ×2 (09:27→17:14)
[2017-11-29] MEDS: AMLODIPINE 2.5 MG TABLET PO SCH (09:27)
[2017-11-29] MEDS: AMIODARONE 200 MG TABLET PO SCH (09:27)
[2017-11-29] MEDS: ASCORBIC ACID 500 MG TABLET PO SCH (09:27)
[2017-11-29] MEDS: CARVEDILOL 12.5 MG TABLET PO SCH ×2 (09:27→17:14)
[2017-11-29] MEDS: SALINE FLUSH 10ml SYRINGE IVF PRN ×3 (09:29→18:47)
[2017-11-29] MEDS: ALBUTEROL 2.5mg/3ml (0.083%) NEB AEROSOL SCH ×2 (10:00→21:01)
--- NOTE | 2017-11-29 14:27 | Progress Note ---
- Date 11/29/17 Subjective: Angela is seen today in follow up. She is doing well without any complaints today. He continues on her baseline oxygen of 2 liters and denies feeling short of breath. Denies any chest pain or GI complaints. Appetite good. Objective Vital signs: Temperature 97.8 F 11/29/17 07:18 Pulse Rate 71 11/29/17 08:00 Respiratory Rate 20 11/29/17 10:00 Blood Pressure 159/67 H 11/29/17 07:18 Pulse Oximetry 100 11/29/17 10:00 Height/Weight/BMI: Height 1.63 m Weight 75.8 kg Body Mass Index 29.0 - Constitutional Present: no acute distress, well nourished, well developed - Routine HEENT Exam Eye: Present: EOMI ENT: Present: mucous membranes moist, dentition normal - Routine Respiratory Exam Present: CTA bilaterally. Absent: wheezes - Routine Cardiovascular Exam Present: RRR, S1, S2. Absent: murmur - Routine Abdominal Exam Present: soft, normoactive bowel sounds, non distended. Absent: tenderness - Routine Skin Exam Present: intact, dry, pallor, warm - Routine Neurological Exam Present: alert, oriented X3, CN II-XII intact - Routine Lymphatic Exam Lymphatic: Absent: adenopathy - Routine Psychiatric Exam Present: normal affect, cooperative Results - Labs CBC & Chem 7: 11/29/17 03:55 11/29/17 03:55 Assessment and Plan (1) Osteomyelitis of ankle or foot Current visit: No Status: Acute Assessment and Plan: Impression Osteomyelitis, right lower extremity wound. Diabetic foot ulcer Anemia Esophageal cancer-chemotherapy, currently on hold Type II diabetes Peripheral artery disease Acute on chronic kidney disease. Congestive heart failure Atrial fibrillation. COPD-chronic oxygen use at 2 liters Plan Admitted yesterday to swing bed status under the care of Dr. Caraballo. Appreciate ongoing infectious disease consultation and recommendations by Dr. Afua Fernandez. Patient will continue to receive IV Zosyn for treatment of osteomyelitis of the right 1st metatarsal. Course will be complete through December 22, 2017. Lower extremity wound will continue to be followed by the wound care center and Dr. Lopez. Continue to follow routine labs periodically through her stay. She has been anemic during her acute visit, hemoglobin has been low, however, remained stable , today 7.2 Routine Bumex was placed on hold yesterday 11/28 given. Hypovolemia with elevated sodium of 151. Patient was given 1 liter of IV fluids, today sodium has improved to 145. Will monitor carefully, suspect patient well need to be placed back on Bumex in the near future for chronic diuresing. Monitor daily under weights and I/O Carefully Continue to monitor renal function carefully, creatinine today 1.5 Plan is for patient to remain on swing bed status. Through the course of her antibiotics. At time of discharge, her medical care will return to primary care provider, Dr Rachel Dietz - Physician Narrative Physician: Sanford Caraballo MD Narrative: Date: 11/29/17 Time: 1614 I have independently evaluated and examined this patient. I reviewed the chart, the patient's history, and the [employer]CHIT[employer]/PA's documented findings as above. We discussed and formulated the assessment and plan as above with additions as below: Patient says she is doing well. Says she is not sure why she is here. Reviewed with her that infection is in her bone and she needs iv abx through 12/22. She understands from surgery that she should avoid putting weight on her foot. NAD. CTAB. RRR. s/nt/nd. Continue abx and wound care. Monitor blood sugars. Na improved after 1L D5W. Monitor Hospital Course Summary Disclaimer: The visit summary below is not to be considered part of the above Progress Note. Hospital Course: Impression Osteomyelitis, right lower extremity wound. Diabetic foot ulcer Anemia Esophageal cancer-chemotherapy, currently on hold Type II diabetes Peripheral artery disease Acute on chronic kidney disease. Congestive heart failure Atrial fibrillation. COPD-chronic oxygen use at 2 liters 11/29/2017- Wound/Surgical note: HGB has been stable in the 7 range for a week. Continue treatment for esophageal ulceration associated with her esophageal cancer. Continue to monitor HGB. Grade 3 DFU with osteomyelitis right foot is slowly improving, showing new granulation at the perimeter and in the center. Continue the Aquacel Q3 days and prn, and ABX per Dr. Fernandez. Small ulceration medial met head area is now soft, no purulence. Re re-start the Aquacel in the area, Q3d and prn. Dry eschar wounds dorsum of toes and large unstageable dry eschar of heel will continue Betadine paint BID. Off load with foam boot. May use "surgical shoe" for short distance (like the distance to the bathroom) ambulation with PT, she will not be able to wear her regular shoe for any significant amount of walking.The surgical shoe can be put over the dressings, but that would at least get the joints and muscles moving a little. 11/29/17 Admitted yesterday to swing bed status under the care of Dr. Caraballo. Appreciate ongoing infectious disease consultation and recommendations by Dr. Afua Fernandez. Patient will continue to receive IV Zosyn for treatment of osteomyelitis of the right 1st metatarsal. Course will be complete through December 22, 2017. Lower extremity wound will continue to be followed by the wound care center and Dr. Lopez. Continue to follow routine labs periodically through her stay. She has been anemic during her acute visit, hemoglobin has been low, however, remained stable , today 7.2 Routine Bumex was placed on hold yesterday 11/28 given. Hypovolemia with elevated sodium of 151. Patient was given 1 liter of IV fluids, today sodium has improved to 145. Will monitor carefully, suspect patient well need to be placed back on Bumex in the near future for chronic diuresing. Monitor daily under weights and I/O Carefully Continue to monitor renal function carefully, creatinine today 1.5
[2017-11-29] MEDS: INSULIN ASPART 100unit/ml INJECTION SQ PRN (18:14)
[2017-11-29] MEDS: MIRTAZAPINE 15 MG TABLET PO SCH (20:13)
[2017-11-29] MEDS: ATORVASTATIN 40 MG TABLET PO SCH (20:13)
[2017-11-29] MEDS: INSULIN DETEMIR 100unit/ml INJECTION SQ SCH (20:13)
[2017-11-29] MEDS: ACETAMINOPHEN 500 MG TABLET PO PRN (20:16)
[2017-11-30] MEDS: PIPERACILLIN/TAZOBACTAM 2.25 GM in NS 100 ML IV SCH ×4 (01:05→18:54)
[2017-11-30] MEDS: PANTOPRAZOLE 40 MG TABLET PO SCH ×2 (05:57→17:26)
[2017-11-30] MEDS: SUCRALFATE 1gm/10ml ORAL LIQUID PO SCH ×4 (05:57→22:12)
[2017-11-30] MEDS: LEVOTHYROXINE 25 MCG TABLET PO SCH (05:57)
[2017-11-30] MEDS: INSULIN ASPART 100unit/ml INJECTION SQ SCH ×3 (08:09→17:26)
[2017-11-30] MEDS: LISINOPRIL 2.5 MG TABLET PO SCH (08:30)
[2017-11-30] MEDS: ASCORBIC ACID 500 MG TABLET PO SCH (08:30)
[2017-11-30] MEDS: FERROUS SULFATE 324 MG TABLET PO SCH (08:30)
[2017-11-30] MEDS: AMLODIPINE 2.5 MG TABLET PO SCH (08:30)
[2017-11-30] MEDS: AMIODARONE 200 MG TABLET PO SCH (08:30)
[2017-11-30] MEDS: LACTOBACILLUS (15B cfu) CAPSULE PO SCH ×2 (08:30→17:27)
[2017-11-30] MEDS: CARVEDILOL 12.5 MG TABLET PO SCH ×2 (08:30→17:26)
[2017-11-30] MEDS: ASPIRIN 81 MG CHEWABLE TABLET PO SCH (08:30)
[2017-11-30] MEDS: ALBUTEROL 2.5mg/3ml (0.083%) NEB AEROSOL SCH ×2 (10:21→21:32)
[2017-11-30] MEDS: INSULIN ASPART 100unit/ml INJECTION SQ PRN (12:23)
[2017-11-30] MEDS: NS FLUSH BAG 500ml IV PRN (13:47)
[2017-11-30] MEDS: SALINE FLUSH 10ml SYRINGE IVF PRN ×2 (13:47→18:54)
--- NOTE | 2017-11-30 16:20 | Progress Note ---
- Date 11/30/17 Subjective: Up to chair. Says she is doing pretty well. Her sister is visiting. The patient c/o some right shoulder stiffness that she says started after the PICC was placed and she had to hold her arm still for the placement. She says she is trying to drink more and eat about half of her meals. Objective Vital signs: Temperature 98.4 F 11/30/17 15:09 Pulse Rate 67 11/30/17 15:09 Respiratory Rate 16 11/30/17 15:09 Blood Pressure 131/75 11/30/17 15:09 Pulse Oximetry 99 11/30/17 15:09 Height/Weight/BMI: Height 5 ft 4 in Weight 76.2 kg Body Mass Index 29.0 - Constitutional Present: no acute distress - Routine HEENT Exam Head: Present: normocephalic, atraumatic Eye: Present: EOMI, PERRL ENT: Present: mucous membranes moist - Routine Respiratory Exam Present: CTA bilaterally - Routine Cardiovascular Exam Present: RRR, S1, S2 - Routine Abdominal Exam Present: soft, normoactive bowel sounds, non distended, non tender - Routine Extremities Exam Present: edema - Routine Skin Exam Comments: dressing to RLE - Routine Neurological Exam Present: alert, moving all extremities - Routine Psychiatric Exam Present: normal affect, cooperative Results - Labs CBC & Chem 7: 11/29/17 03:55 11/29/17 03:55 Assessment and Plan (1) Osteomyelitis of ankle or foot Current visit: No Status: Acute Assessment and Plan: Impression Osteomyelitis, right lower extremity wound. Diabetic foot ulcer Anemia Esophageal cancer-chemotherapy, currently on hold Type II diabetes Peripheral artery disease Acute on chronic kidney disease. Congestive heart failure Atrial fibrillation. COPD-chronic oxygen use at 2 liters Plan Admitted yesterday to swing bed status under the care of Dr. Caraballo. Appreciate ongoing infectious disease consultation and recommendations by Dr. Afua Fernandez. Patient will continue to receive IV Zosyn for treatment of osteomyelitis of the right 1st metatarsal. Course will be complete through December 22, 2017. Lower extremity wound will continue to be followed by the wound care center and Dr. Lpoez. Continue to follow routine labs periodically through her stay. She has been anemic during her acute visit, hemoglobin has been low, however, remained stable , today 7.2 Routine Bumex was placed on hold 11/28 given hypovolemia with elevated sodium. Monitor po intake on dysphagia diet. She is particularly having trouble with thickened liquids. Will monitor carefully, suspect patient well need to be placed back on Bumex in the near future for chronic diuresing. Monitor daily under weights and I/O Carefully Continue to monitor renal function carefully. Plan is for patient to remain on swing bed status. Through the course of her antibiotics. At time of discharge, her medical care will return to primary care provider, Dr Rachel Dietz - Physician Narrative Narrative: Date: 11/30/17 Time: 1614 Hospital Course Summary Disclaimer: The visit summary below is not to be considered part of the above Progress Note. Hospital Course: Impression Osteomyelitis, right lower extremity wound. Diabetic foot ulcer Anemia Esophageal cancer-chemotherapy, currently on hold Type II diabetes Peripheral artery disease Acute on chronic kidney disease. Congestive heart failure Atrial fibrillation. COPD-chronic oxygen use at 2 liters 11/29/2017- Wound/Surgical note: HGB has been stable in the 7 range for a week. Continue treatment for esophageal ulceration associated with her esophageal cancer. Continue to monitor HGB. Grade 3 DFU with osteomyelitis right foot is slowly improving, showing new granulation at the perimeter and in the center. Continue the Aquacel Q3 days and prn, and ABX per Dr. Fernandez. Small ulceration medial met head area is now soft, no purulence. Re re-start the Aquacel in the area, Q3d and prn. Dry eschar wounds dorsum of toes and large unstageable dry eschar of heel will continue Betadine paint BID. Off load with foam boot. May use "surgical shoe" for short distance (like the distance to the bathroom) ambulation with PT, she will not be able to wear her regular shoe for any significant amount of walking.The surgical shoe can be put over the dressings, but that would at least get the joints and muscles moving a little. 11/29/17 Admitted yesterday to swing bed status under the care of Dr. Caraballo. Appreciate ongoing infectious disease consultation and recommendations by Dr. Afua Fernandez. Patient will continue to receive IV Zosyn for treatment of osteomyelitis of the right 1st metatarsal. Course will be complete through December 22, 2017. Lower extremity wound will continue to be followed by the wound care center and Dr. Lopez. Continue to follow routine labs periodically through her stay. She has been anemic during her acute visit, hemoglobin has been low, however, remained stable , today 7.2 Routine Bumex was placed on hold yesterday 11/28 given. Hypovolemia with elevated sodium of 151. Patient was given 1 liter of IV fluids, today sodium has improved to 145. Will monitor carefully, suspect patient well need to be placed back on Bumex in the near future for chronic diuresing. Monitor daily under weights and I/O Carefully Continue to monitor renal function carefully, creatinine today 1.5 11/30 Admitted yesterday to swing bed status under the care of Dr. Caraballo. Appreciate ongoing infectious disease consultation and recommendations by Dr. Afua Fernandez. Patient will continue to receive IV Zosyn for treatment of osteomyelitis of the right 1st metatarsal. Course will be complete through December 22, 2017. Lower extremity wound will continue to be followed by the wound care center and Dr. Lopez. Continue to follow routine labs periodically through her stay. She has been anemic during her acute visit, hemoglobin has been low, however, remained stable , today 7.2 Routine Bumex was placed on hold 11/28 given hypovolemia with elevated sodium. Monitor po intake on dysphagia diet. She is particularly having trouble with thickened liquids. Will monitor carefully, suspect patient well need to be placed back on Bumex in the near future for chronic diuresing. Monitor daily under weights and I/O Carefully Continue to monitor renal function carefully.
[2017-11-30] MEDS: ATORVASTATIN 40 MG TABLET PO SCH (22:11)
[2017-11-30] MEDS: INSULIN DETEMIR 100unit/ml INJECTION SQ SCH (22:12)
[2017-11-30] MEDS: MIRTAZAPINE 15 MG TABLET PO SCH (22:12)
[2017-11-30] MEDS: LORazepam 0.5 MG TABLET PO PRN (22:39)
[2017-12-01] MEDS: PIPERACILLIN/TAZOBACTAM 2.25 GM in NS 100 ML IV SCH ×4 (07:20→18:11)
[2017-12-01] MEDS: SUCRALFATE 1gm/10ml ORAL LIQUID PO SCH ×4 (07:43→22:51)
[2017-12-01] MEDS: LEVOTHYROXINE 25 MCG TABLET PO SCH (07:43)
[2017-12-01] MEDS: PANTOPRAZOLE 40 MG TABLET PO SCH ×2 (07:43→16:37)
[2017-12-01] MEDS: ASCORBIC ACID 500 MG TABLET PO SCH (08:18)
[2017-12-01] MEDS: CARVEDILOL 12.5 MG TABLET PO SCH ×2 (08:18→17:43)
[2017-12-01] MEDS: LISINOPRIL 2.5 MG TABLET PO SCH (08:18)
[2017-12-01] MEDS: FERROUS SULFATE 324 MG TABLET PO SCH (08:18)
[2017-12-01] MEDS: ASPIRIN 81 MG CHEWABLE TABLET PO SCH (08:18)
[2017-12-01] MEDS: INSULIN ASPART 100unit/ml INJECTION SQ SCH ×3 (08:19→17:42)
[2017-12-01] MEDS: LACTOBACILLUS (15B cfu) CAPSULE PO SCH ×2 (08:19→17:43)
[2017-12-01] MEDS: AMLODIPINE 2.5 MG TABLET PO SCH (08:19)
[2017-12-01] MEDS: AMIODARONE 200 MG TABLET PO SCH (08:19)
[2017-12-01] MEDS: ALBUTEROL 2.5mg/3ml (0.083%) NEB AEROSOL SCH ×2 (10:59→18:55)
[2017-12-01] MEDS: INSULIN ASPART 100unit/ml INJECTION SQ PRN ×2 (12:23→14:00)
--- NOTE | 2017-12-01 12:34 | Progress Note ---
- Date 12/01/17 Subjective: F/U: SWING BED STATIS, osteomyelitis. Angela is seen today whiles resting in bed. She reports that she is very tired right now as she had been up in her chair all morning. She also complains of urinary urgency and difficulty urinating today which is new. Nursing attempted to obtain an urine sample last night but is was contaminated with stool. She remains afebrile and denies any chest pain, shortness of breath, abdominal pain , nausea, vomiting or diarrhea. She is breathing easily on her baseline oxygen at 2L without cough or congestion. Her blood continues to be elevated at time - 181/69 this morning, but improved with her medications at 154/69. Her weight is trending up. Blood sugars remain elevated in the 200s. Nursing reports that her oral intake is good and bowels are moving. Objective Vital signs: Temperature 96.5 F L 12/01/17 11:48 Pulse Rate 69 12/01/17 11:48 Respiratory Rate 16 12/01/17 11:48 Blood Pressure 154/69 H 12/01/17 12:01 Pulse Oximetry 97 12/01/17 11:48 Height/Weight/BMI: Height 5 ft 4 in Weight 172 lb 2.896 oz Body Mass Index 29.0 Comments: Resting in bed, awakens easily with soft voice stimuli. - Constitutional Present: no acute distress, well nourished, well developed, cooperative - Routine HEENT Exam Head: Present: normocephalic, atraumatic Eye: Present: PERRL. Absent: conjunctival icterus ENT: Present: mucous membranes moist, oropharynx clear - Routine Respiratory Exam Present: decreased breath sounds. Absent: respiratory distress, wheezes Comments: Breathing easily on baseline home oxygen at 2L. - Routine Cardiovascular Exam Present: RRR, S1, S2 - Routine Abdominal Exam Present: soft, normoactive bowel sounds, non distended - Routine Extremities Exam Present: no edema, pulses intact Comments: Bandage clean, dry and intact to right foot. - Routine Back/Spine/Pelvis Exam Back/Spine: Present: full ROM. Absent: vertebral tenderness - Routine Musculoskeletal Exam Musculoskeletal: Present: no clubbing or cyanosis, moving extremities well - Routine Skin Exam Present: dry, warm Comments: Afebrile. Pale per patient's norm. - Routine Neurological Exam Present: alert, moving all extremities, hearing grossly intact, normal speech - Routine Lymphatic Exam Lymphatic: Absent: lymphedema - Routine Psychiatric Exam Present: cooperative Results - Labs CBC & Chem 7: 11/29/17 03:55 11/29/17 03:55 Assessment and Plan (1) Osteomyelitis of ankle or foot Current visit: No Status: Acute Assessment and Plan: Impression Osteomyelitis, right lower extremity wound. Diabetic foot ulcer Anemia Esophageal cancer-chemotherapy, currently on hold Type II diabetes Peripheral artery disease Acute on chronic kidney disease. Congestive heart failure Atrial fibrillation. COPD-chronic oxygen use at 2 liters Plan - 12/01/17 - SWING BED STATUS since 11/28/17 Overall, Angela appears to be doing well. She complains of urinary urgency. UA obtained revealed 50-200 WBC with 5-10 squamous epithelial cells, 1-3 transition epithelial cells and trace bacteria. Will hold off on additional antibiotic treatment until culture is available. She remains on IV Zosyn for treatment of osteomyelitis of the right 1st metatarsal. Course will be complete through December 22, 2017. Appreciate ongoing infectious disease consultation and recommendations by Dr. Afua Fernandez. Lower extremity wound will continue to be followed by the wound care center and Dr. Lopez. Weight slowly trending up. Routine Bumex was placed on hold 11/28 given hypovolemia. Continue to monitor oral intake on dysphagia diet. She is particularly having trouble with thickened liquids. Hypernatremia resolved with Bumex on hold. Anemia stable. Continue to monitor electrolytes closely. Blood sugars slightly elevated. Will increase breakfast NovoLog to 2 units and continue to monitor closely, adjusting as indicated. Continue to monitor I&O closely as well as daily weight. Will discuss restarting home Bumex with Dr. Caraballo given resolution of hypernatremia and increasing weight and blood pressure. Plan is for patient to remain on swing bed status through the course of her antibiotics. Will recheck labs in AM to monitor blood counts, electrolytes and renal function. GI Prophylaxis: Protonix Resuscitation Status: Do Not Resuscitate - Time spent with patient Time with patient PN: 35 minutes - Physician Narrative Physician: Sanford Caraballo MD, other (Dr. Caraballo) Narrative: Date: 12/01/17 Time: 1420 I have independently evaluated and examined this patient. I reviewed the chart, the patient's history, and the KENNEL AIDE/PA's documented findings as above. We discussed and formulated the assessment and plan as above with additions as below: c/o some difficulty urinating. Says she is doing pretty well otherwise. Says she is trying to drink more. Total oral intake was 665 ml yesterday. NAD. CTAB. RRR. s/nt/nd +bs. Dressing in place to RLE. Continuing pip/tazo. Monitor urine cx. She is not getting much fluid, but with weight going up will restart Bumex daily instead of bid. Hospital Course Summary Disclaimer: The visit summary below is not to be considered part of the above Progress Note. Hospital Course: Impression Osteomyelitis, right lower extremity wound. Diabetic foot ulcer Anemia Esophageal cancer-chemotherapy, currently on hold Type II diabetes Peripheral artery disease Acute on chronic kidney disease. Congestive heart failure Atrial fibrillation. COPD-chronic oxygen use at 2 liters 11/29/2017- Wound/Surgical note: HGB has been stable in the 7 range for a week. Continue treatment for esophageal ulceration associated with her esophageal cancer. Continue to monitor HGB. Grade 3 DFU with osteomyelitis right foot is slowly improving, showing new granulation at the perimeter and in the center. Continue the Aquacel Q3 days and prn, and ABX per Dr. Fernandez. Small ulceration medial met head area is now soft, no purulence. Re re-start the Aquacel in the area, Q3d and prn. Dry eschar wounds dorsum of toes and large unstageable dry eschar of heel will continue Betadine paint BID. Off load with foam boot. May use "surgical shoe" for short distance (like the distance to the bathroom) ambulation with PT, she will not be able to wear her regular shoe for any significant amount of walking.The surgical shoe can be put over the dressings, but that would at least get the joints and muscles moving a little. 11/29/17 Admitted yesterday to swing bed status under the care of Dr. Caraballo. Appreciate ongoing infectious disease consultation and recommendations by Dr. Afua Fernandez. Patient will continue to receive IV Zosyn for treatment of osteomyelitis of the right 1st metatarsal. Course will be complete through December 22, 2017. Lower extremity wound will continue to be followed by the wound care center and Dr. Lopez. Continue to follow routine labs periodically through her stay. She has been anemic during her acute visit, hemoglobin has been low, however, remained stable , today 7.2 Routine Bumex was placed on hold yesterday 11/28 given. Hypovolemia with elevated sodium of 151. Patient was given 1 liter of IV fluids, today sodium has improved to 145. Will monitor carefully, suspect patient well need to be placed back on Bumex in the near future for chronic diuresing. Monitor daily under weights and I/O Carefully Continue to monitor renal function carefully, creatinine today 1.5 11/30 Admitted yesterday to swing bed status under the care of Dr. Caraballo. Appreciate ongoing infectious disease consultation and recommendations by Dr. Afua Fernandez. Patient will continue to receive IV Zosyn for treatment of osteomyelitis of the right 1st metatarsal. Course will be complete through December 22, 2017. Lower extremity wound will continue to be followed by the wound care center and Dr. Lopez. Continue to follow routine labs periodically through her stay. She has been anemic during her acute visit, hemoglobin has been low, however, remained stable , today 7.2 Routine Bumex was placed on hold 11/28 given hypovolemia with elevated sodium. Monitor po intake on dysphagia diet. She is particularly having trouble with thickened liquids. Will monitor carefully, suspect patient well need to be placed back on Bumex in the near future for chronic diuresing. Monitor daily under weights and I/O Carefully Continue to monitor renal function carefully. Plan - 12/01/17 - SWING BED STATUS since 11/28/17 Overall, Angela appears to be doing well. She complains of urinary urgency. UA obtained revealed 50-200 WBC with 5-10 squamous epithelial cells, 1-3 transition epithelial cells and trace bacteria. Will hold off on additional antibiotic treatment until culture is available. She remains on IV Zosyn for treatment of osteomyelitis of the right 1st metatarsal. Course will be complete through December 22, 2017. Appreciate ongoing infectious disease consultation and recommendations by Dr. Afua Fernandez. Lower extremity wound will continue to be followed by the wound care center and Dr. Lopez. Weight slowly trending up. Routine Bumex was placed on hold 11/28 given hypovolemia. Continue to monitor oral intake on dysphagia diet. She is particularly having trouble with thickened liquids. Hypernatremia resolved with Bumex on hold. Anemia stable. Continue to monitor electrolytes closely. Blood sugars slightly elevated. Will increase breakfast NovoLog to 2 units and continue to monitor closely, adjusting as indicated. Continue to monitor I&O closely as well as daily weight. Will discuss restarting home Bumex with Dr. Caraballo given resolution of hypernatremia and increasing weight and blood pressure. Plan is for patient to remain on swing bed status through the course of her antibiotics. Will recheck labs in AM to monitor blood counts, electrolytes and renal function.
[2017-12-01] MEDS: INSULIN DETEMIR 100unit/ml INJECTION SQ SCH (22:51)
[2017-12-01] MEDS: MIRTAZAPINE 15 MG TABLET PO SCH (22:52)
[2017-12-01] MEDS: ATORVASTATIN 40 MG TABLET PO SCH (22:52)
[2017-12-01] MEDS: LORazepam 0.5 MG TABLET PO PRN (23:13)
[2017-12-02] MEDS: PIPERACILLIN/TAZOBACTAM 2.25 GM in NS 100 ML IV SCH ×4 (01:00→20:18)
[2017-12-02] MEDS: LEVOTHYROXINE 25 MCG TABLET PO SCH (06:43)
[2017-12-02] MEDS: PANTOPRAZOLE 40 MG TABLET PO SCH ×2 (06:43→18:18)
[2017-12-02] MEDS: SUCRALFATE 1gm/10ml ORAL LIQUID PO SCH ×4 (06:43→20:19)
[2017-12-02] MEDS: CARVEDILOL 12.5 MG TABLET PO SCH ×2 (07:22→18:18)
[2017-12-02] MEDS: BUMETANIDE 1 MG TABLET PO SCH (09:49)
[2017-12-02] MEDS: AMIODARONE 200 MG TABLET PO SCH (09:49)
[2017-12-02] MEDS: AMLODIPINE 2.5 MG TABLET PO SCH (09:50)
[2017-12-02] MEDS: LACTOBACILLUS (15B cfu) CAPSULE PO SCH ×2 (09:50→18:18)
[2017-12-02] MEDS: FERROUS SULFATE 324 MG TABLET PO SCH (09:50)
[2017-12-02] MEDS: ASCORBIC ACID 500 MG TABLET PO SCH (09:50)
[2017-12-02] MEDS: LISINOPRIL 2.5 MG TABLET PO SCH (09:50)
[2017-12-02] MEDS: INSULIN ASPART 100unit/ml INJECTION SQ SCH ×3 (09:51→18:18)
[2017-12-02] MEDS: ASPIRIN 81 MG CHEWABLE TABLET PO SCH (09:51)
[2017-12-02] MEDS: D5W 1,000 ML IV SCH ×2 (09:55→23:36)
--- NOTE | 2017-12-02 10:48 | Progress Note ---
- Date 12/02/17 Subjective: Angela is seen this morning following discussion with nursing staff reporting she is having increased oxygen demands this morning. She is needing up to 4 liters ( previously been on 2 L which is her baseline). Angela states that she is feeling "wornout" today. Noted Hgb decreased to 6.8 today. Sodium also continues to increase alone with [employer]. She continues to take in decreased PO intake as she does not like the thickener. She remains afebrile. Objective Vital signs: Temperature 97.8 F 12/02/17 07:29 Pulse Rate 78 12/02/17 07:29 Respiratory Rate 24 12/02/17 07:29 Blood Pressure 161/63 H 12/02/17 07:22 Pulse Oximetry 91 12/02/17 07:29 Height/Weight/BMI: Height 1.63 m Weight 78.1 kg Body Mass Index 29.0 - Constitutional Present: mild distress, well nourished, well developed - Routine HEENT Exam Eye: Present: EOMI ENT: Present: mucous membranes moist, dentition normal - Routine Respiratory Exam Present: diminished air movement. Absent: wheezes - Routine Cardiovascular Exam Present: RRR, S1, S2. Absent: murmur - Routine Abdominal Exam Present: soft, normoactive bowel sounds, non distended. Absent: tenderness - Routine Extremities Exam Comments: Dressing to Right foot - Routine Skin Exam Present: dry, pallor, warm - Routine Neurological Exam Present: alert, oriented X3, CN II-XII intact - Routine Lymphatic Exam Lymphatic: Absent: adenopathy - Routine Psychiatric Exam Present: normal affect, cooperative Results - Labs CBC & Chem 7: 12/02/17 04:06 12/02/17 04:06 Microbiology Results: Microbiology 12/01/17 12:08 Urine, Voided (Cc/notcc) Urine Culture - Preliminary Culture Initiated - Results Pending Assessment and Plan (1) Osteomyelitis of ankle or foot Current visit: No Status: Acute Assessment and Plan: Impression Osteomyelitis, right lower extremity wound. Diabetic foot ulcer Anemia Esophageal cancer-chemotherapy, currently on hold Type II diabetes Peripheral artery disease Acute on chronic kidney disease. Congestive heart failure Atrial fibrillation. COPD-chronic oxygen use at 2 liters Plan UA was collected yesterday 12/01- Holding off tx until C/S resulted requiring increased oxygen today to 4 liters Suspect she is intravascularly dry given Hypernatremia and elevated [employer]. However weight trends up and she is not requiring more oxygen- suspect edema extravascularly Will given D5W- at 75 ml/hr for gently hydration given decreased PO fluid intake Will Give 1 unit of PRBC given anemia. Give a one time dose of IV Bumex this afternoon following transfusion. She was previously on Bumex BID however it was held 11/28 and resumed daily this morning Continue on IV Zosyn for treatment of osteomyelitis of the right 1st metatarsal. Course will be complete through December 22, 2017. Appreciate ongoing infectious disease consultation and recommendations by Dr. Afua Fernandez. Lower extremity wound will continue to be followed by the wound care center and Dr. Lopez. Recheck CBC and BMP tomorrow. Case discussed with attending, Dr Casiano DVT Prophylaxis: SCD's Resuscitation Status: Do Not Resuscitate - Time spent with patient Time with patient PN: 25 minutes - Physician Narrative Narrative: Date: 12/02/17 Time: 1720 Have independently interviewed and examined pt. Chart reviewed. Case discussed with my [employer]RI[employer] PACKER. Care plan developed with my supervision; agree with above. Doing fair-notes breathing has been feeling more short the past 2 morning. Not having much cough or congestion. No pain with breathing. Oral drive variable. Lungs: decreased, no wheezes or distress CV: irregular AB: soft nt MSE: awake alert appropriate Plan: Continue with antibiotics and wound care. 1 unit pRBC transfused as HGB with decrease to 6.8. Continue with supportive care. Hospital Course Summary Disclaimer: The visit summary below is not to be considered part of the above Progress Note. Hospital Course: 11/28/17 Admitted to Swing bed at [facility] for continuation of IV antibiotics. 11/29/17 - Wound/Surgical note: HGB has been stable in the 7 range for a week. Continue treatment for esophageal ulceration associated with her esophageal cancer. Continue to monitor HGB. Grade 3 DFU with osteomyelitis right foot is slowly improving, showing new granulation at the perimeter and in the center. Continue the Aquacel Q3 days and prn, and ABX per Dr. Fernandez. Small ulceration medial met head area is now soft, no purulence. Re re-start the Aquacel in the area, Q3d and prn. Dry eschar wounds dorsum of toes and large unstageable dry eschar of heel will continue Betadine paint BID. Off load with foam boot. May use "surgical shoe" for short distance (like the distance to the bathroom) ambulation with PT, she will not be able to wear her regular shoe for any significant amount of walking.The surgical shoe can be put over the dressings, but that would at least get the joints and muscles moving a little. 11/29/17 Admitted yesterday to swing bed status under the care of Dr. Caraballo. Appreciate ongoing infectious disease consultation and recommendations by Dr. Afua Fernandez. Patient will continue to receive IV Zosyn for treatment of osteomyelitis of the right 1st metatarsal. Course will be complete through December 22, 2017. Lower extremity wound will continue to be followed by the wound care center and Dr. Lopez. Continue to follow routine labs periodically through her stay. She has been anemic during her acute visit, hemoglobin has been low, however, remained stable , today 7.2 Routine Bumex was placed on hold yesterday 11/28 given. Hypovolemia with elevated sodium of 151. Patient was given 1 liter of IV fluids, today sodium has improved to 145. Will monitor carefully, suspect patient well need to be placed back on Bumex in the near future for chronic diuresing. Monitor daily under weights and I/O Carefully Continue to monitor renal function carefully, creatinine today 1.5 11/30/17 Admitted yesterday to swing bed status under the care of Dr. Caraballo. Appreciate ongoing infectious disease consultation and recommendations by Dr. Afua Fernandez. Patient will continue to receive IV Zosyn for treatment of osteomyelitis of the right 1st metatarsal. Course will be complete through December 22, 2017. Lower extremity wound will continue to be followed by the wound care center and Dr. Lopez. Continue to follow routine labs periodically through her stay. She has been anemic during her acute visit, hemoglobin has been low, however, remained stable , today 7.2 Routine Bumex was placed on hold 11/28 given hypovolemia with elevated sodium. Monitor po intake on dysphagia diet. She is particularly having trouble with thickened liquids. Will monitor carefully, suspect patient well need to be placed back on Bumex in the near future for chronic diuresing. Monitor daily under weights and I/O Carefully Continue to monitor renal function carefully. 12/01/17 Overall, Angela appears to be doing well. She complains of urinary urgency. UA obtained revealed 50-200 WBC with 5-10 squamous epithelial cells, 1-3 transition epithelial cells and trace bacteria. Will hold off on additional antibiotic treatment until culture is available. She remains on IV Zosyn for treatment of osteomyelitis of the right 1st metatarsal. Course will be complete through December 22, 2017. Appreciate ongoing infectious disease consultation and recommendations by Dr. Aufa Fernandez. Lower extremity wound will continue to be followed by the wound care center and Dr. Lpoez. Weight slowly trending up. Routine Bumex was placed on hold 11/28 given hypovolemia. Continue to monitor oral intake on dysphagia diet. She is particularly having trouble with thickened liquids. Hypernatremia resolved with Bumex on hold. Anemia stable. Continue to monitor electrolytes closely. Blood sugars slightly elevated. Will increase breakfast NovoLog to 2 units and continue to monitor closely, adjusting as indicated. Continue to monitor I&O closely as well as daily weight. Will discuss restarting home Bumex with Dr. Caraballo given resolution of hypernatremia and increasing weight and blood pressure. Plan is for patient to remain on swing bed status through the course of her antibiotics. Will recheck labs in AM to monitor blood counts, electrolytes and renal function. 12/02/17 UA was collected yesterday 12/01- Holding off tx until C/S resulted Requiring increased oxygen today to 4 liters Suspect she is intravascularly dry given Hypernatremia and elevated [employer]. However weight trends up and she is not requiring more oxygen- suspect edema extravascularly. Will given D5W- at 75 ml/hr for gently hydration given decreased PO fluid intake. Will Give 1 unit of PRBC given anemia. Give a one time dose of IV Bumex this afternoon following transfusion. She was previously on Bumex BID however it was held 11/28 and resumed daily this morning. Continue on IV Zosyn for treatment of osteomyelitis of the right 1st metatarsal. Course will be complete through December 22, 2017. Appreciate ongoing infectious disease consultation and recommendations by Dr. Afua Fernandez. Lower extremity wound will continue to be followed by the wound care center and Dr. Lopez.
[2017-12-02] MEDS: INSULIN DETEMIR 100unit/ml INJECTION SQ SCH (20:18)
[2017-12-02] MEDS: MIRTAZAPINE 15 MG TABLET PO SCH (20:18)
[2017-12-02] MEDS: ATORVASTATIN 40 MG TABLET PO SCH (20:19)
[2017-12-03] MEDS: PIPERACILLIN/TAZOBACTAM 2.25 GM in NS 100 ML IV SCH ×4 (00:17→18:03)
[2017-12-03] MEDS: D5W 1,000 ML IV SCH ×2 (03:16→18:05)
[2017-12-03] MEDS: LEVOTHYROXINE 25 MCG TABLET PO SCH (05:50)
[2017-12-03] MEDS: PANTOPRAZOLE 40 MG TABLET PO SCH ×2 (05:50→17:12)
[2017-12-03] MEDS: SUCRALFATE 1gm/10ml ORAL LIQUID PO SCH ×4 (05:51→22:25)
[2017-12-03] MEDS: CARVEDILOL 12.5 MG TABLET PO SCH ×2 (09:39→17:12)
[2017-12-03] MEDS: FERROUS SULFATE 324 MG TABLET PO SCH (09:39)
[2017-12-03] MEDS: INSULIN ASPART 100unit/ml INJECTION SQ SCH ×3 (09:41→18:02)
[2017-12-03] MEDS: AMLODIPINE 2.5 MG TABLET PO SCH (09:42)
[2017-12-03] MEDS: AMIODARONE 200 MG TABLET PO SCH (09:42)
[2017-12-03] MEDS: LACTOBACILLUS (15B cfu) CAPSULE PO SCH ×2 (09:42→17:12)
[2017-12-03] MEDS: LISINOPRIL 2.5 MG TABLET PO SCH (09:43)
[2017-12-03] MEDS: BUMETANIDE 1 MG TABLET PO SCH (09:43)
[2017-12-03] MEDS: ASPIRIN 81 MG CHEWABLE TABLET PO SCH (09:43)
[2017-12-03] MEDS: ASCORBIC ACID 500 MG TABLET PO SCH (09:43)
--- NOTE | 2017-12-03 11:54 | Progress Note ---
- Date 12/03/17 Subjective: Angela is seen while resting today. She does reports feeling worn out today. She is noted to continue on 4 liters of oxygen with mild tachypnic 30/min. She does have mild expiratory wheezing. She does note hemoptysis in her sputum eariler today. Denies having pain or GI concerns. Hgb 7.6 today. Objective Vital signs: Temperature 97.2 F 12/03/17 11:29 Pulse Rate 82 12/03/17 11:29 Respiratory Rate 22 12/03/17 08:31 Blood Pressure 164/72 H 12/03/17 11:29 Pulse Oximetry 91 12/03/17 11:29 Height/Weight/BMI: Height 1.63 m Weight 77.2 kg Body Mass Index 29.0 - Constitutional Present: no acute distress, well nourished, well developed - Routine HEENT Exam Eye: Present: EOMI ENT: Present: mucous membranes moist, dentition normal - Routine Respiratory Exam Present: wheezes (expiratory) - Routine Cardiovascular Exam Present: RRR, S1, S2. Absent: murmur - Routine Abdominal Exam Present: soft, normoactive bowel sounds, non distended. Absent: tenderness - Routine Extremities Exam Present: no edema - Routine Skin Exam Present: intact, dry, warm - Routine Neurological Exam Present: alert, oriented X3, CN II-XII intact - Routine Lymphatic Exam Lymphatic: Absent: adenopathy - Routine Psychiatric Exam Present: cooperative Results - Labs CBC & Chem 7: 12/03/17 03:59 12/02/17 04:06 Microbiology Results: Microbiology 12/01/17 12:08 Urine, Voided (Cc/notcc) Urine Culture - Preliminary No Growth After 1 Day Assessment and Plan (1) Osteomyelitis of ankle or foot Current visit: No Status: Acute Assessment and Plan: Impression Osteomyelitis, right lower extremity wound. Diabetic foot ulcer Anemia Esophageal cancer-chemotherapy, currently on hold Type II diabetes Peripheral artery disease Acute on chronic kidney disease. Congestive heart failure Atrial fibrillation. COPD-chronic oxygen use at 2 liters Plan UA was collected yesterday 12/01- C/S revels no growth after 1 day- No treatment Given increased wheezing will give additional dose of Bumex 1 mg IV this afternoon Oxygen demands are slightly up from baseline Continue to follow Hgb- 7.6 today Continue on IV Zosyn for treatment of osteomyelitis of the right 1st metatarsal. Course will be complete through December 22, 2017. Lower extremity wound will continue to be followed by the wound care center and Dr. Lopez. Recheck CBC and BMP tomorrow. DVT Prophylaxis: SCD's Resuscitation Status: Do Not Resuscitate - Time spent with patient Time with patient PN: 25 minutes - Physician Narrative Physician: Vishnu Casiano MD Narrative: Date: 12/03/17 Time: 1805 Have independently interviewed and examined pt. Chart reviewed. Case discussed with my EXECUTIVE SALES MANAGER. Care plan developed with my supervision; agree with above. Doing okay the evening. Had good work out with therapy today-working on being up more. Breathing feeling slightly better today. Appetite decreased; eating, just not hungry. Lungs: Decreased, improving air movement. CV: regular MSE: awake alert appropriate. Plan: Continue with Zosyn and wound care. Can stop IVF-will recheck BMP in am. Encourage continued therapy. Hospital Course Summary Disclaimer: The visit summary below is not to be considered part of the above Progress Note. Hospital Course: 11/28/17 [place] [facility] [place]. 11/29/17 - Wound/Surgical note: HGB has been stable in the 7 range for a week. Continue treatment for esophageal ulceration associated with her esophageal cancer. Continue to monitor HGB. Grade 3 DFU with osteomyelitis right foot is slowly improving, showing new granulation at the perimeter and in the center. Continue the Aquacel Q3 days and prn, and ABX per Dr. Fernandez. Small ulceration medial met head area is now soft, no purulence. Re re-start the Aquacel in the area, Q3d and prn. Dry eschar wounds dorsum of toes and large unstageable dry eschar of heel will continue Betadine paint BID. Off load with foam boot. May use "surgical shoe" for short distance (like the distance to the bathroom) ambulation with PT, she will not be able to wear her regular shoe for any significant amount of walking.The surgical shoe can be put over the dressings, but that would at least get the joints and muscles moving a little. 11/29/17 Admitted yesterday to swing bed status under the care of Dr. Caraballo. Appreciate ongoing infectious disease consultation and recommendations by Dr. Afua Fernandez. Patient will continue to receive IV Zosyn for treatment of osteomyelitis of the right 1st metatarsal. Course will be complete through December 22, 2017. Lower extremity wound will continue to be followed by the wound care center and Dr. Lopez. Continue to follow routine labs periodically through her stay. She has been anemic during her acute visit, hemoglobin has been low, however, remained stable , today 7.2 Routine Bumex was placed on hold yesterday 11/28 given. Hypovolemia with elevated sodium of 151. Patient was given 1 liter of IV fluids, today sodium has improved to 145. Will monitor carefully, suspect patient well need to be placed back on Bumex in the near future for chronic diuresing. Monitor daily under weights and I/O Carefully Continue to monitor renal function carefully, creatinine today 1.5 11/30/17 Admitted yesterday to swing bed status under the care of Dr. Caraballo. Appreciate ongoing infectious disease consultation and recommendations by Dr. Afua Fernandez. Patient will continue to receive IV Zosyn for treatment of osteomyelitis of the right 1st metatarsal. Course will be complete through December 22, 2017. Lower extremity wound will continue to be followed by the wound care center and Dr. Lopez. Continue to follow routine labs periodically through her stay. She has been anemic during her acute visit, hemoglobin has been low, however, remained stable , today 7.2 Routine Bumex was placed on hold 11/28 given hypovolemia with elevated sodium. Monitor po intake on dysphagia diet. She is particularly having trouble with thickened liquids. Will monitor carefully, suspect patient well need to be placed back on Bumex in the near future for chronic diuresing. Monitor daily under weights and I/O Carefully Continue to monitor renal function carefully. 12/01/17 Overall, Angela appears to be doing well. She complains of urinary urgency. UA obtained revealed 50-200 WBC with 5-10 squamous epithelial cells, 1-3 transition epithelial cells and trace bacteria. Will hold off on additional antibiotic treatment until culture is available. She remains on IV Zosyn for treatment of osteomyelitis of the right 1st metatarsal. Course will be complete through December 22, 2017. Appreciate ongoing infectious disease consultation and recommendations by Dr. Afua Fernandez. Lower extremity wound will continue to be followed by the wound care center and Dr. Lopez. Weight slowly trending up. Routine Bumex was placed on hold 11/28 given hypovolemia. Continue to monitor oral intake on dysphagia diet. She is particularly having trouble with thickened liquids. Hypernatremia resolved with Bumex on hold. Anemia stable. Continue to monitor electrolytes closely. Blood sugars slightly elevated. Will increase breakfast NovoLog to 2 units and continue to monitor closely, adjusting as indicated. Continue to monitor I&O closely as well as daily weight. Will discuss restarting home Bumex with Dr. Caraballo given resolution of hypernatremia and increasing weight and blood pressure. Plan is for patient to remain on swing bed status through the course of her antibiotics. Will recheck labs in AM to monitor blood counts, electrolytes and renal function. 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 However weight trends up and she is not requiring more oxygen- suspect edema extravascularly. Will given D5W- at 75 ml/hr for gently hydration given decreased PO fluid intake. Will Give 1 unit of PRBC given anemia. Give a one time dose of IV Bumex this afternoon following transfusion. She was previously on Bumex BID however it was held 11/28 and resumed daily this morning. Continue on IV Zosyn for treatment of osteomyelitis of the right 1st metatarsal. Course will be complete through December 22, 2017. Appreciate ongoing infectious disease consultation and recommendations by Dr. Afua Fernandez. Lower extremity wound will continue to be followed by the wound care center and Dr. Lopez. 12/03/17 UA was collected yesterday 12/01- C/S revels no growth after 1 day- No treatment Given increased wheezing will give additional dose of Bumex 1 mg IV this afternoon Oxygen demands are slightly up from baseline Continue to follow Hgb- 7.6 today Continue on IV Zosyn for treatment of osteomyelitis of the right 1st metatarsal. Course will be complete through December 22, 2017. Lower extremity wound will continue to be followed by the wound care center and Dr. Lopez. Recheck CBC and BMP tomorrow.
[2017-12-03] MEDS: INSULIN ASPART 100unit/ml INJECTION SQ PRN (13:28)
[2017-12-03] MEDS: SALINE FLUSH 10ml SYRINGE IV PRN ×2 (15:21→18:51)
[2017-12-03] MEDS: SALINE FLUSH 10ml SYRINGE IVF PRN (18:04)
[2017-12-03] MEDS: INSULIN DETEMIR 100unit/ml INJECTION SQ SCH (22:22)
[2017-12-03] MEDS: ATORVASTATIN 40 MG TABLET PO SCH (22:23)
[2017-12-03] MEDS: MIRTAZAPINE 15 MG TABLET PO SCH (22:23)
[2017-12-04] MEDS: PIPERACILLIN/TAZOBACTAM 2.25 GM in NS 100 ML IV SCH ×4 (02:26→18:14)
[2017-12-04] MEDS: SALINE FLUSH 10ml SYRINGE IVF PRN (06:45)
[2017-12-04] MEDS: LEVOTHYROXINE 25 MCG TABLET PO SCH (06:45)
[2017-12-04] MEDS: PANTOPRAZOLE 40 MG TABLET PO SCH ×2 (06:45→17:52)
[2017-12-04] MEDS: SUCRALFATE 1gm/10ml ORAL LIQUID PO SCH ×4 (06:45→20:51)
[2017-12-04] MEDS: INSULIN ASPART 100unit/ml INJECTION SQ SCH ×3 (08:48→17:52)
[2017-12-04] MEDS: AMIODARONE 200 MG TABLET PO SCH (08:49)
[2017-12-04] MEDS: ASPIRIN 81 MG CHEWABLE TABLET PO SCH (08:49)
[2017-12-04] MEDS: CARVEDILOL 12.5 MG TABLET PO SCH ×2 (08:49→17:53)
[2017-12-04] MEDS: LACTOBACILLUS (15B cfu) CAPSULE PO SCH ×2 (08:49→17:51)
[2017-12-04] MEDS: ASCORBIC ACID 500 MG TABLET PO SCH (08:49)
[2017-12-04] MEDS: BUMETANIDE 1 MG TABLET PO SCH (08:49)
[2017-12-04] MEDS: FERROUS SULFATE 324 MG TABLET PO SCH (08:49)
[2017-12-04] MEDS: AMLODIPINE 2.5 MG TABLET PO SCH (08:50)
[2017-12-04] MEDS: LISINOPRIL 2.5 MG TABLET PO SCH (08:50)
--- NOTE | 2017-12-04 10:31 | General Surgery Progress Note ---
Subjective Patient reports: bowel movement (stools are loose.) Narrative: Patient was actually seen on December 03, but I failed to get the progress note entered. She was still in bed prior to breakfast, which made exam of the right foot much easier. Patient tells me she is feeling better, no pain in her foot, and feeling generally slightly better. Physical therapy is working with her for strengthening and range of motion but she is not doing much in the way of any ambulation. The foam bootie is remaining in place. She denies chest pain, dizziness, epigastric pain. She was transfused 1 unit of blood on December to bringing her hemoglobin up to 9.0 , today its back down to 7.6. - Vital Signs Last Vital Signs Temp 99.1 F 12/04/17 08:15 Pulse 70 12/04/17 08:15 Resp 20 12/04/17 08:15 BP 153/62 H 12/04/17 08:15 Pulse Ox 96 12/04/17 08:15 - Laboratory Result Diagrams: 12/04/17 04:50 12/04/17 04:50 Laboratory Tests 12/02/17 12/02/17 12/03/17 04:06 17:44 03:59 Hgb 6.8 L 9.0 L D 7.6 L D 12/04/17 04:50 Hgb 8.0 L - Microbiogy Microbiology 12/01/17 12:08 Urine, Voided (Cc/notcc) Urine Culture - Final No Growth After 2 Days - Normal Exam General: awake (although she does drift off to sleep while doing the foot exam.) , alert, oriented Cardiovascular: regular rhythm, regular rate Respiratory: no labored breathing (remains on oxygen by nasal cannula and she is chronically on oxygen at home.) Abdominal: soft, non-tender Psychiatric: normal affect Additional Normal Findings: Large diabetic foot ulcer right foot is continuing to granulate in nicely. It measures 4.5 x 3.5 cm in an oval shape. Granulation is getting close to being flush with the skin. There is a little bit of soft exudate between the granulation and this is wiped away somewhat with 4 x 4. The smaller diabetic ulcer at the medial met head with a dry crust, the dry crust was able to be wiped away and revealed nice epithelial tissue. Dorsum of toes continue with dry crust ulcerations. The right heel ulcer remains with dry eschar. Assessment and Plan (1) Esophageal ulcer with bleeding Current Visit: Yes Status: Acute (2) Acute anemia Current Visit: No Status: Resolved (3) Osteomyelitis of ankle or foot Current Visit: No Status: Acute (4) Unstageable pressure ulcer of right heel Current Visit: Yes Status: Acute (5) Esophageal cancer Current Visit: Yes Status: Chronic Qualifiers: Malignant neoplasm of esophagus location: lower third Qualified Code(s): C15.5 - Malignant neoplasm of lower third of esophagus Plan: 12/03/2017 She remains chronically anemic with intermittent need for blood transfusions, hospitalist managing. Multiple comorbidities managed by hospitalist, this is much appreciated. Diabetic foot ulcer with osteomyelitis right foot shows significant improvement with current management utilizing aqua cell AG within the wound and changed every 2-3 days. Dry eschar wounds of the dorsum of the toes and right heel continued to be dry and should continue to be painted with Betadine solution twice a day. I visited with Dr. Lopez regarding ambulation, it is his thought that it would be okay to get a "postop shoe" and allow her to attempt ambulation short distances. We'll continue to follow her once or twice a week regarding her diabetic foot ulcers. Hospital Course Summary Disclaimer: The visit summary below is not to be considered part of the above Progress Note. Hospital Course: 11/28/17 Admitted to Swing bed [place] [facility] [place] IV antibiotics. 11/29/17 - Wound/Surgical note: HGB has been stable in the 7 range for a week. Continue treatment for esophageal ulceration associated with her esophageal cancer. Continue to monitor HGB. Grade 3 DFU with osteomyelitis right foot is slowly improving, showing new granulation at the perimeter and in the center. Continue the Aquacel Q3 days and prn, and ABX per Dr. Fernandez. Small ulceration medial met head area is now soft, no purulence. Re re-start the Aquacel in the area, Q3d and prn. Dry eschar wounds dorsum of toes and large unstageable dry eschar of heel will continue Betadine paint BID. Off load with foam boot. May use "surgical shoe" for short distance (like the distance to the bathroom) ambulation with PT, she will not be able to wear her regular shoe for any significant amount of walking.The surgical shoe can be put over the dressings, but that would at least get the joints and muscles moving a little. 11/29/17 Admitted yesterday to swing bed status under the care of Dr. Caraballo. Appreciate ongoing infectious disease consultation and recommendations by Dr. Afua Fernandez. Patient will continue to receive IV Zosyn for treatment of osteomyelitis of the right 1st metatarsal. Course will be complete through December 22, 2017. Lower extremity wound will continue to be followed by the wound care center and Dr. Lopez. Continue to follow routine labs periodically through her stay. She has been anemic during her acute visit, hemoglobin has been low, however, remained stable , today 7.2 Routine Bumex was placed on hold yesterday 11/28 given. Hypovolemia with elevated sodium of 151. Patient was given 1 liter of IV fluids, today sodium has improved to 145. Will monitor carefully, suspect patient well need to be placed back on Bumex in the near future for chronic diuresing. Monitor daily under weights and I/O Carefully Continue to monitor renal function carefully, creatinine today 1.5 11/30/17 Admitted yesterday to swing bed status under the care of Dr. Caraballo. Appreciate ongoing infectious disease consultation and recommendations by Dr. Afua Fernandez. Patient will continue to receive IV Zosyn for treatment of osteomyelitis of the right 1st metatarsal. Course will be complete through December 22, 2017. Lower extremity wound will continue to be followed by the wound care center and Dr. Lopez. Continue to follow routine labs periodically through her stay. She has been anemic during her acute visit, hemoglobin has been low, however, remained stable , today 7.2 Routine Bumex was placed on hold 11/28 given hypovolemia with elevated sodium. Monitor po intake on dysphagia diet. She is particularly having trouble with thickened liquids. Will monitor carefully, suspect patient well need to be placed back on Bumex in the near future for chronic diuresing. Monitor daily under weights and I/O Carefully Continue to monitor renal function carefully. 12/01/17 Overall, Angela appears to be doing well. She complains of urinary urgency. UA obtained revealed 50-200 WBC with 5-10 squamous epithelial cells, 1-3 transition epithelial cells and trace bacteria. Will hold off on additional antibiotic treatment until culture is available. She remains on IV Zosyn for treatment of osteomyelitis of the right 1st metatarsal. Course will be complete through December 22, 2017. Appreciate ongoing infectious disease consultation and recommendations by Dr. Afua Fernandez. Lower extremity wound will continue to be followed by the wound care center and Dr. Lopez. Weight slowly trending up. Routine Bumex was placed on hold 11/28 given hypovolemia. Continue to monitor oral intake on dysphagia diet. She is particularly having trouble with thickened liquids. Hypernatremia resolved with Bumex on hold. Anemia stable. Continue to monitor electrolytes closely. Blood sugars slightly elevated. Will increase breakfast NovoLog to 2 units and continue to monitor closely, adjusting as indicated. Continue to monitor I&O closely as well as daily weight. Will discuss restarting home Bumex with Dr. Caraballo given resolution of hypernatremia and increasing weight and blood pressure. Plan is for patient to remain on swing bed status through the course of her antibiotics. Will recheck labs in AM to monitor blood counts, electrolytes and renal function. 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 However weight trends up and she is not requiring more oxygen- suspect edema extravascularly. Will given D5W- at 75 ml/hr for gently hydration given decreased PO fluid intake. Will Give 1 unit of PRBC given anemia. Give a one time dose of IV Bumex this afternoon following transfusion. She was previously on Bumex BID however it was held 11/28 and resumed daily this morning. Continue on IV Zosyn for treatment of osteomyelitis of the right 1st metatarsal. Course will be complete through December 22, 2017. Appreciate ongoing infectious disease consultation and recommendations by Dr. Afua Fernandez. Lower extremity wound will continue to be followed by the wound care center and Dr. Lopez. 12/03/17 UA was collected yesterday 12/01- C/S revels no growth after 1 day- No treatment Given increased wheezing will give additional dose of Bumex 1 mg IV this afternoon Oxygen demands are slightly up from baseline Continue to follow Hgb- 7.6 today Continue on IV Zosyn for treatment of osteomyelitis of the right 1st metatarsal. Course will be complete through December 22, 2017. Lower extremity wound will continue to be followed by the wound care center and Dr. Lopez. Recheck CBC and BMP tomorrow.
--- NOTE | 2017-12-04 11:51 | Progress Note ---
- Date 12/04/17 Subjective: Angela was sleeping comfortably. Her nurse reported that she was awake earlier today and had a good morning. She is still on 4L of oxygen after previously being weaned down to 1-2. Oral intake overall has been improving. Objective Vital signs: Temperature 98.9 F 12/04/17 11:38 Pulse Rate 66 12/04/17 11:38 Respiratory Rate 18 12/04/17 11:38 Blood Pressure 138/53 12/04/17 11:38 Pulse Oximetry 100 12/04/17 11:38 Height/Weight/BMI: Height 1.63 m Weight 77.8 kg Body Mass Index 29.0 - Constitutional Present: no acute distress - Routine HEENT Exam Head: Present: normocephalic - Routine Respiratory Exam Present: decreased breath sounds, crackles - Routine Cardiovascular Exam Present: RRR, S1, S2 - Routine Abdominal Exam Present: soft, normoactive bowel sounds, non distended, non tender - Routine Extremities Exam Present: edema (trace RLE) - Routine Skin Exam Present: dry, pallor, warm, wounds (DFU right foot; dressing intact) - Routine Neurological Exam Absent: alert (sleeping) - Routine Psychiatric Exam Present: unable to assess Results - Labs CBC & Chem 7: 12/04/17 04:50 12/04/17 04:50 Microbiology Results: Microbiology 12/01/17 12:08 Urine, Voided (Cc/notcc) Urine Culture - Final No Growth After 2 Days Assessment and Plan (1) Osteomyelitis of ankle or foot Current visit: No Status: Acute Assessment and Plan: Impression Osteomyelitis, right lower extremity wound. Diabetic foot ulcer Anemia Esophageal cancer-chemotherapy, currently on hold Type II diabetes Peripheral artery disease Acute on chronic kidney disease. Congestive heart failure Atrial fibrillation. COPD-chronic oxygen use at 2 liters Plan Extra Bumex given yesterday - No wheezing on exam today. Renal function has been worsening; currently at 2.1. Weight trending up. Repeat BMP in am. Anemia stable with hgb 8.0. Continue Zosyn for osteomyelitis of the right 1st metatarsal through December 22, 2017. DVT Prophylaxis: SCD's Resuscitation Status: Do Not Resuscitate - Time spent with patient Time with patient PN: 25 minutes - Physician Narrative Physician: Vishnu Casiano MD Narrative: Date: 12/04/17 Time: 0 Have independently interviewed and examined pt. Chart reviewed. Case discussed with my SPECIALTY PERSON. Care plan developed with my supervision; agree with above. Doing well this evening. Did work with therapy-worked on standing and balance. Breathing well-note cough but no pain with breathing. No pain with swallowing. Appetite fair. Lungs: decreased, no distress CV: regular AB: soft nt/nd MSE: awake alert appropriate Plan: Continue with antibiotics and wound care. Congratulated patient on her efforts with therapy and encourage her to continue her hard work. Hospital Course Summary Disclaimer: The visit summary below is not to be considered part of the above Progress Note. Hospital Course: 11/28/17 [place] [facility] [place] antibiotics. 11/29/17 - Wound/Surgical note: HGB has been stable in the 7 range for a week. Continue treatment for esophageal ulceration associated with her esophageal cancer. Continue to monitor HGB. Grade 3 DFU with osteomyelitis right foot is slowly improving, showing new granulation at the perimeter and in the center. Continue the Aquacel Q3 days and prn, and ABX per Dr. Fernandez. Small ulceration medial met head area is now soft, no purulence. Re re-start the Aquacel in the area, Q3d and prn. Dry eschar wounds dorsum of toes and large unstageable dry eschar of heel will continue Betadine paint BID. Off load with foam boot. May use "surgical shoe" for short distance (like the distance to the bathroom) ambulation with PT, she will not be able to wear her regular shoe for any significant amount of walking.The surgical shoe can be put over the dressings, but that would at least get the joints and muscles moving a little. 11/29/17 Admitted yesterday to swing bed status under the care of Dr. Caraballo. Appreciate ongoing infectious disease consultation and recommendations by Dr. Afua Fernandez. Patient will continue to receive IV Zosyn for treatment of osteomyelitis of the right 1st metatarsal. Course will be complete through December 22, 2017. Lower extremity wound will continue to be followed by the wound care center and Dr. Lopez. Continue to follow routine labs periodically through her stay. She has been anemic during her acute visit, hemoglobin has been low, however, remained stable , today 7.2 Routine Bumex was placed on hold yesterday 11/28 given. Hypovolemia with elevated sodium of 151. Patient was given 1 liter of IV fluids, today sodium has improved to 145. Will monitor carefully, suspect patient well need to be placed back on Bumex in the near future for chronic diuresing. Monitor daily under weights and I/O Carefully Continue to monitor renal function carefully, creatinine today 1.5 11/30/17 Admitted yesterday to swing bed status under the care of Dr. Caraballo. Appreciate ongoing infectious disease consultation and recommendations by Dr. Afua Fernandez. Patient will continue to receive IV Zosyn for treatment of osteomyelitis of the right 1st metatarsal. Course will be complete through December 22, 2017. Lower extremity wound will continue to be followed by the wound care center and Dr. Lopez. Continue to follow routine labs periodically through her stay. She has been anemic during her acute visit, hemoglobin has been low, however, remained stable , today 7.2 Routine Bumex was placed on hold 11/28 given hypovolemia with elevated sodium. Monitor po intake on dysphagia diet. She is particularly having trouble with thickened liquids. Will monitor carefully, suspect patient well need to be placed back on Bumex in the near future for chronic diuresing. Monitor daily under weights and I/O Carefully Continue to monitor renal function carefully. 12/01/17 Overall, Angela appears to be doing well. She complains of urinary urgency. UA obtained revealed 50-200 WBC with 5-10 squamous epithelial cells, 1-3 transition epithelial cells and trace bacteria. Will hold off on additional antibiotic treatment until culture is available. She remains on IV Zosyn for treatment of osteomyelitis of the right 1st metatarsal. Course will be complete through December 22, 2017. Appreciate ongoing infectious disease consultation and recommendations by Dr. Afua Fernandez. Lower extremity wound will continue to be followed by the wound care center and Dr. Lopez. Weight slowly trending up. Routine Bumex was placed on hold 11/28 given hypovolemia. Continue to monitor oral intake on dysphagia diet. She is particularly having trouble with thickened liquids. Hypernatremia resolved with Bumex on hold. Anemia stable. Continue to monitor electrolytes closely. Blood sugars slightly elevated. Will increase breakfast NovoLog to 2 units and continue to monitor closely, adjusting as indicated. Continue to monitor I&O closely as well as daily weight. Will discuss restarting home Bumex with Dr. Caraballo given resolution of hypernatremia and increasing weight and blood pressure. Plan is for patient to remain on swing bed status through the course of her antibiotics. Will recheck labs in AM to monitor blood counts, electrolytes and renal function. 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 However weight trends up and she is not requiring more oxygen- suspect edema extravascularly. Will given D5W- at 75 ml/hr for gently hydration given decreased PO fluid intake. Will Give 1 unit of PRBC given anemia. Give a one time dose of IV Bumex this afternoon following transfusion. She was previously on Bumex BID however it was held 11/28 and resumed daily this morning. Continue on IV Zosyn for treatment of osteomyelitis of the right 1st metatarsal. Course will be complete through December 22, 2017. Appreciate ongoing infectious disease consultation and recommendations by Dr. Afua Fernandez. Lower extremity wound will continue to be followed by the wound care center and Dr. Lopez. 12/03/17 UA was collected yesterday 12/01- C/S revels no growth after 1 day - No treatment Given increased wheezing will give additional dose of Bumex 1 mg IV this afternoon Oxygen demands are slightly up from baseline Continue to follow Hgb- 7.6 today Continue on IV Zosyn for treatment of osteomyelitis of the right 1st metatarsal. Course will be complete through December 22, 2017. Lower extremity wound will continue to be followed by the wound care center and Dr. Lopez. 12/04/17 Extra Bumex given yesterday - No wheezing on exam today. Renal function has been worsening; currently at 2.1. Weight trending up. Repeat BMP in am.
[2017-12-04] MEDS: INSULIN ASPART 100unit/ml INJECTION SQ PRN (14:44)
[2017-12-04] MEDS: MIRTAZAPINE 15 MG TABLET PO SCH (20:51)
[2017-12-04] MEDS: INSULIN DETEMIR 100unit/ml INJECTION SQ SCH (20:51)
[2017-12-04] MEDS: ATORVASTATIN 40 MG TABLET PO SCH (20:53)
[2017-12-05] MEDS: PIPERACILLIN/TAZOBACTAM 2.25 GM in NS 100 ML IV SCH ×4 (02:01→19:43)
[2017-12-05] MEDS: SALINE FLUSH 10ml SYRINGE IVF PRN (04:36)
[2017-12-05] MEDS: SUCRALFATE 1gm/10ml ORAL LIQUID PO SCH ×4 (05:58→20:46)
[2017-12-05] MEDS: PANTOPRAZOLE 40 MG TABLET PO SCH ×2 (05:58→17:42)
[2017-12-05] MEDS: LEVOTHYROXINE 25 MCG TABLET PO SCH (05:58)
[2017-12-05] MEDS: NS FLUSH BAG 500ml IV PRN (06:19)
[2017-12-05] MEDS: INSULIN ASPART 100unit/ml INJECTION SQ SCH ×3 (09:11→19:42)
[2017-12-05] MEDS: CARVEDILOL 12.5 MG TABLET PO SCH ×2 (09:11→17:38)
[2017-12-05] MEDS: LISINOPRIL 2.5 MG TABLET PO SCH (09:11)
[2017-12-05] MEDS: FERROUS SULFATE 324 MG TABLET PO SCH (09:11)
[2017-12-05] MEDS: AMLODIPINE 2.5 MG TABLET PO SCH (09:11)
[2017-12-05] MEDS: BUMETANIDE 1 MG TABLET PO SCH (09:11)
[2017-12-05] MEDS: ASPIRIN 81 MG CHEWABLE TABLET PO SCH (09:11)
[2017-12-05] MEDS: ASCORBIC ACID 500 MG TABLET PO SCH (09:11)
[2017-12-05] MEDS: LACTOBACILLUS (15B cfu) CAPSULE PO SCH ×2 (09:11→17:37)
[2017-12-05] MEDS: AMIODARONE 200 MG TABLET PO SCH (09:11)
[2017-12-05] MEDS: INSULIN ASPART 100unit/ml INJECTION SQ PRN (12:44)
--- NOTE | 2017-12-05 16:58 | Progress Note ---
- Date 12/05/17 Subjective: Angela was resting in bed but easily awakened. She stated that her day has been "hectic". She went for a short walk today in her room and that made her nervous. She also felt more short of breath when she woke up this morning, but it seems better now. Her appetite is about the same - she tries to eat 1/2 of her meals and supplements with mighty shakes. She denies any sores in her mouth but states that she has a sore on her bottom which is being "doctored". Objective Vital signs: Temperature 97.1 F 12/05/17 11:41 Pulse Rate 70 12/05/17 11:41 Respiratory Rate 18 12/05/17 08:00 Blood Pressure 130/50 12/05/17 11:41 Pulse Oximetry 100 12/05/17 11:41 Height/Weight/BMI: Height 1.63 m Weight 77.7 kg Body Mass Index 29.0 - Constitutional Present: no acute distress, well nourished, well developed - Routine HEENT Exam Head: Present: normocephalic Eye: Present: PERRL. Absent: conjunctival icterus, scleral injection - Routine Respiratory Exam Present: crackles (B/L bases) - Routine Cardiovascular Exam Present: RRR, S1, S2 - Routine Abdominal Exam Present: soft, normoactive bowel sounds, non distended, non tender - Routine Extremities Exam Present: edema (trace RLE) - Routine Skin Exam Present: warm Comments: dressing to right foot; serosanguinous drainage noted on medial aspect - Routine Neurological Exam Present: alert, oriented X3, normal speech - Routine Psychiatric Exam Present: normal affect, normal thought process, cooperative Results - Labs CBC & Chem 7: 12/04/17 04:50 12/05/17 04:34 Microbiology Results: Microbiology 12/01/17 12:08 Urine, Voided (Cc/notcc) Urine Culture - Final No Growth After 2 Days Assessment and Plan (1) Osteomyelitis of ankle or foot Current visit: No Status: Acute Assessment and Plan: Impression Osteomyelitis, right lower extremity wound. Diabetic foot ulcer Anemia Esophageal cancer-chemotherapy, currently on hold Type II diabetes Peripheral artery disease Acute on chronic kidney disease. Congestive heart failure Atrial fibrillation. COPD-chronic oxygen use at 2 liters Hypothyroidism Plan Increased subjective SOA today; will repeat CXR. Continue oral bumex. Cr 2.0. Na 150. Continue Zosyn for osteomyelitis of the right 1st metatarsal through December 22, 2017. Wound care per Dr. Lopez/wound team. Stephenie Will check TSH with am lab tomorrow. TSH check 09/02/17 and elevated at 12.6. Synthroid 0.025mg started. As pt on this medication for 3 months, would be prudent to repeat TSH and adjust dose as indicated. GI Prophylaxis: Protonix Resuscitation Status: Do Not Resuscitate - Time spent with patient Time with patient PN: 25 minutes - Physician Narrative Physician: Vishnu Casiano MD Narrative: Date: 12/05/17 Time: 2052 Have independently interviewed and examined pt. Chart reviewed. Case discussed with my [employer] NURSE. Care plan developed with my supervision; agree with above. Had good day with therapy-walked 27 steps. Really encouraged with the help Fred is giving her; pt very motivated to get stronger and better. Breathing with some shortness. Appetite fair. Lungs: decreased, no distress CV: regular AB: soft nt/nd MSE: awake alert appropriate Plan: Continue with Zosyn for coverage. Continue wound care. Encourage continued diligent work with therapy to make gains in strength and abilities. Will recheck CBC in am to monitor anemia. Recheck BMP secondary to medication use. In reviewing chart, TSH check 09/02/17 and elevated at 12.6. Synthroid 0.025mg started. As pt on this medication for 3 months, would be prudent to repeat TSH and adjust dose as indicated. Hospital Course Summary Disclaimer: The visit summary below is not to be considered part of the above Progress Note. Hospital Course: 11/28/17 Admitted to Swing bed at [facility] [place] for continuation of IV antibiotics. 11/29/17 - Wound/Surgical note: HGB has been stable in the 7 range for a week. Continue treatment for esophageal ulceration associated with her esophageal cancer. Continue to monitor HGB. Grade 3 DFU with osteomyelitis right foot is slowly improving, showing new granulation at the perimeter and in the center. Continue the Aquacel Q3 days and prn, and ABX per Dr. Fernandez. Small ulceration medial met head area is now soft, no purulence. Re re-start the Aquacel in the area, Q3d and prn. Dry eschar wounds dorsum of toes and large unstageable dry eschar of heel will continue Betadine paint BID. Off load with foam boot. May use "surgical shoe" for short distance (like the distance to the bathroom) ambulation with PT, she will not be able to wear her regular shoe for any significant amount of walking.The surgical shoe can be put over the dressings, but that would at least get the joints and muscles moving a little. 11/29/17 Admitted yesterday to swing bed status under the care of Dr. Caraballo. Appreciate ongoing infectious disease consultation and recommendations by Dr. Afua Fernandez. Patient will continue to receive IV Zosyn for treatment of osteomyelitis of the right 1st metatarsal. Course will be complete through December 22, 2017. Lower extremity wound will continue to be followed by the wound care center and Dr. Lopez. Continue to follow routine labs periodically through her stay. She has been anemic during her acute visit, hemoglobin has been low, however, remained stable , today 7.2 Routine Bumex was placed on hold yesterday 11/28 given. Hypovolemia with elevated sodium of 151. Patient was given 1 liter of IV fluids, today sodium has improved to 145. Will monitor carefully, suspect patient well need to be placed back on Bumex in the near future for chronic diuresing. Monitor daily under weights and I/O Carefully Continue to monitor renal function carefully, creatinine today 1.5 11/30/17 Admitted yesterday to swing bed status under the care of Dr. Caraballo. Appreciate ongoing infectious disease consultation and recommendations by Dr. Afua Fernandez. Patient will continue to receive IV Zosyn for treatment of osteomyelitis of the right 1st metatarsal. Course will be complete through December 22, 2017. Lower extremity wound will continue to be followed by the wound care center and Dr. Lopez. Continue to follow routine labs periodically through her stay. She has been anemic during her acute visit, hemoglobin has been low, however, remained stable , today 7.2 Routine Bumex was placed on hold 11/28 given hypovolemia with elevated sodium. Monitor po intake on dysphagia diet. She is particularly having trouble with thickened liquids. 12/01/17 Overall, Angela appears to be doing well. She complains of urinary urgency. UA obtained revealed 50-200 WBC with 5-10 squamous epithelial cells, 1-3 transition epithelial cells and trace bacteria. Will hold off on additional antibiotic treatment until culture is available. She remains on IV Zosyn for treatment of osteomyelitis of the right 1st metatarsal. Course will be complete through December 22, 2017. Appreciate ongoing infectious disease consultation and recommendations by Dr. Afua Fernandez. Lower extremity wound will continue to be followed by the wound care center and Dr. Lopez. Weight slowly trending up. Routine Bumex was placed on hold 11/28 given hypovolemia. Continue to monitor oral intake on dysphagia diet. She is particularly having trouble with thickened liquids. Hypernatremia resolved with Bumex on hold. Anemia stable. Continue to monitor electrolytes closely. Blood sugars slightly elevated. Will increase breakfast NovoLog to 2 units and continue to monitor closely, adjusting as indicated. Continue to monitor I&O closely as well as daily weight. Will discuss restarting home Bumex with Dr. Caraballo given resolution of hypernatremia and increasing weight and blood pressure. Plan is for patient to remain on swing bed status through the course of her antibiotics. 12/02/17 UA was collected yesterday 12/01- Holding off tx until C/S resulted Requiring increased oxygen today to 4 liters Suspect she is intravascularly dry given Hypernatremia and elevated Knife Grinder. However weight trends up and she is not requiring more oxygen- suspect edema extravascularly. Will given D5W- at 75 ml/hr for gently hydration given decreased PO fluid intake. Will Give 1 unit of PRBC given anemia. Give a one time dose of IV Bumex this afternoon following transfusion. She was previously on Bumex BID however it was held 11/28 and resumed daily this morning. Continue on IV Zosyn for treatment of osteomyelitis of the right 1st metatarsal. Course will be complete through December 22, 2017. 12/03/17 UA was collected yesterday 12/01- C/S revels no growth after 1 day - No treatment Given increased wheezing will give additional dose of Bumex 1 mg IV this afternoon Oxygen demands are slightly up from baseline Continue to follow Hgb- 7.6 today Continue on IV Zosyn for treatment of osteomyelitis of the right 1st metatarsal. Course will be complete through December 22, 2017. 12/04/17 Extra Bumex given yesterday - No wheezing on exam today. Renal function has been worsening; currently at 2.1. Weight trending up. 12/05/17 Increased subjective SOA today; will repeat CXR. Cr 2.0. Na 150.
--- NOTE | 2017-12-05 19:16 | General Surgery Progress Note ---
Subjective Narrative: she is in the recliner this evening, denies nausea, abd pain, foot pain. She has been walking short distance and bearing weight for transfers to chair, utilizing a "post op shoe on the right foot. The nurse was ready to change dressings this evening, orders clarified. - Vital Signs Last Vital Signs Temp 98 F 12/05/17 17:27 Pulse 73 12/05/17 17:27 Resp 20 12/05/17 17:27 BP 159/63 H 12/05/17 17:27 Pulse Ox 97 12/05/17 17:27 - Laboratory Result Diagrams: 12/04/17 04:50 12/05/17 04:34 No CBC today, but her HGB has been stable for several days. - Abnormal Exam Respiratory: other (on O2 by NC) Skin: large DFU right foot is continuing to fill in with nice granulation tissue. There is small, about 0.5x0.3 area on medial met head that had dry blood and appears that there has been disruption of the superficial skin. Foot chronically misshapen for Charcot Foot. Dry eschar on heel is unchanged. Dry eschar on dorsal aspect of toes remain dry. - Normal Exam General: awake, alert, oriented, no acute distress Cardiovascular: regular rhythm, regular rate Abdominal: soft, non-tender Assessment and Plan (1) Esophageal ulcer with bleeding Current Visit: Yes Status: Acute (2) Acute anemia Current Visit: No Status: Resolved (3) Osteomyelitis of ankle or foot Current Visit: No Status: Acute (4) Unstageable pressure ulcer of right heel Current Visit: Yes Status: Acute (5) Esophageal cancer Current Visit: Yes Status: Chronic Qualifiers: Malignant neoplasm of esophagus location: lower third Qualified Code(s): C15.5 - Malignant neoplasm of lower third of esophagus Plan: continue with Aqucel then gauze to DFU wound and smaller area of skin disruption , change every 2-3 days. May continue with PT and short distance ambulation with the post op shoe. Continue painting toes and heel with Betadine BID. Hospital Course Summary Disclaimer: The visit summary below is not to be considered part of the above Progress Note. Hospital Course: 11/28/17 Admitted to Swing bed at [facility] [place] for continuation of IV antibiotics. 11/29/17 - Wound/Surgical note: HGB has been stable in the 7 range for a week. Continue treatment for esophageal ulceration associated with her esophageal cancer. Continue to monitor HGB. Grade 3 DFU with osteomyelitis right foot is slowly improving, showing new granulation at the perimeter and in the center. Continue the Aquacel Q3 days and prn, and ABX per Dr. Fernandez. Small ulceration medial met head area is now soft, no purulence. Re re-start the Aquacel in the area, Q3d and prn. Dry eschar wounds dorsum of toes and large unstageable dry eschar of heel will continue Betadine paint BID. Off load with foam boot. May use "surgical shoe" for short distance (like the distance to the bathroom) ambulation with PT, she will not be able to wear her regular shoe for any significant amount of walking.The surgical shoe can be put over the dressings, but that would at least get the joints and muscles moving a little. 11/29/17 Admitted yesterday to swing bed status under the care of Dr. Caraballo. Appreciate ongoing infectious disease consultation and recommendations by Dr. Afua Fernandez. Patient will continue to receive IV Zosyn for treatment of osteomyelitis of the right 1st metatarsal. Course will be complete through December 22, 2017. Lower extremity wound will continue to be followed by the wound care center and Dr. Lopez. Continue to follow routine labs periodically through her stay. She has been anemic during her acute visit, hemoglobin has been low, however, remained stable , today 7.2 Routine Bumex was placed on hold yesterday 11/28 given. Hypovolemia with elevated sodium of 151. Patient was given 1 liter of IV fluids, today sodium has improved to 145. Will monitor carefully, suspect patient well need to be placed back on Bumex in the near future for chronic diuresing. Monitor daily under weights and I/O Carefully Continue to monitor renal function carefully, creatinine today 1.5 11/30/17 Admitted yesterday to swing bed status under the care of Dr. Caraballo. Appreciate ongoing infectious disease consultation and recommendations by Dr. Afua Fernandez. Patient will continue to receive IV Zosyn for treatment of osteomyelitis of the right 1st metatarsal. Course will be complete through December 22, 2017. Lower extremity wound will continue to be followed by the wound care center and Dr. Lopez. Continue to follow routine labs periodically through her stay. She has been anemic during her acute visit, hemoglobin has been low, however, remained stable , today 7.2 Routine Bumex was placed on hold 11/28 given hypovolemia with elevated sodium. Monitor po intake on dysphagia diet. She is particularly having trouble with thickened liquids. 12/01/17 Overall, Angela appears to be doing well. She complains of urinary urgency. UA obtained revealed 50-200 WBC with 5-10 squamous epithelial cells, 1-3 transition epithelial cells and trace bacteria. Will hold off on additional antibiotic treatment until culture is available. She remains on IV Zosyn for treatment of osteomyelitis of the right 1st metatarsal. Course will be complete through December 22, 2017. Appreciate ongoing infectious disease consultation and recommendations by Dr. Afua Fernandez. Lower extremity wound will continue to be followed by the wound care center and Dr. Lopez. Weight slowly trending up. Routine Bumex was placed on hold 11/28 given hypovolemia. Continue to monitor oral intake on dysphagia diet. She is particularly having trouble with thickened liquids. Hypernatremia resolved with Bumex on hold. Anemia stable. Continue to monitor electrolytes closely. Blood sugars slightly elevated. Will increase breakfast NovoLog to 2 units and continue to monitor closely, adjusting as indicated. Continue to monitor I&O closely as well as daily weight. Will discuss restarting home Bumex with Dr. Caraballo given resolution of hypernatremia and increasing weight and blood pressure. Plan is for patient to remain on swing bed status through the course of her antibiotics. 12/02/17 UA was collected yesterday 12/01- Holding off tx until C/S resulted Requiring increased oxygen today to 4 liters Suspect she is intravascularly dry given Hypernatremia and elevated [employer]. However weight trends up and she is not requiring more oxygen- suspect edema extravascularly. Will given D5W- at 75 ml/hr for gently hydration given decreased PO fluid intake. Will Give 1 unit of PRBC given anemia. Give a one time dose of IV Bumex this afternoon following transfusion. She was previously on Bumex BID however it was held 11/28 and resumed daily this morning. Continue on IV Zosyn for treatment of osteomyelitis of the right 1st metatarsal. Course will be complete through December 22, 2017. 12/03/17 UA was collected yesterday 12/01- C/S revels no growth after 1 day - No treatment Given increased wheezing will give additional dose of Bumex 1 mg IV this afternoon Oxygen demands are slightly up from baseline Continue to follow Hgb- 7.6 today Continue on IV Zosyn for treatment of osteomyelitis of the right 1st metatarsal. Course will be complete through December 22, 2017. 12/04/17 Extra Bumex given yesterday - No wheezing on exam today. Renal function has been worsening; currently at 2.1. Weight trending up. 12/05/17 Increased subjective SOA today; will repeat CXR. Cr 2.0. Na 150.
[2017-12-05] MEDS: INSULIN DETEMIR 100unit/ml INJECTION SQ SCH (20:45)
[2017-12-05] MEDS: ATORVASTATIN 40 MG TABLET PO SCH (20:45)
[2017-12-05] MEDS: MIRTAZAPINE 15 MG TABLET PO SCH (20:45)
[2017-12-05] MEDS: ACETAMINOPHEN 500 MG TABLET PO PRN (21:48)
[2017-12-06] MEDS: PIPERACILLIN/TAZOBACTAM 2.25 GM in NS 100 ML IV SCH ×3 (01:42→12:16)
[2017-12-06] MEDS: SALINE FLUSH 10ml SYRINGE IVF PRN ×3 (01:42→18:27)
[2017-12-06] MEDS ORDERED: FALL RISK - PHARMACY CONSULT MC ONE (02:40)
[2017-12-06] MEDS: NS FLUSH BAG 500ml IV PRN (06:18)
[2017-12-06] MEDS: LEVOTHYROXINE 25 MCG TABLET PO SCH (06:18)
[2017-12-06] MEDS: PANTOPRAZOLE 40 MG TABLET PO SCH ×2 (06:18→17:07)
[2017-12-06] MEDS: SUCRALFATE 1gm/10ml ORAL LIQUID PO SCH ×4 (06:18→20:59)
[2017-12-06] MEDS: CARVEDILOL 12.5 MG TABLET PO SCH ×2 (08:04→17:46)
[2017-12-06] MEDS: FERROUS SULFATE 324 MG TABLET PO SCH (08:05)
[2017-12-06] MEDS: LACTOBACILLUS (15B cfu) CAPSULE PO SCH ×2 (08:05→17:46)
[2017-12-06] MEDS: INSULIN ASPART 100unit/ml INJECTION SQ SCH ×3 (08:05→17:46)
[2017-12-06] MEDS: ASPIRIN 81 MG CHEWABLE TABLET PO SCH (08:06)
[2017-12-06] MEDS: AMLODIPINE 2.5 MG TABLET PO SCH (08:06)
[2017-12-06] MEDS: LISINOPRIL 2.5 MG TABLET PO SCH (08:06)
[2017-12-06] MEDS: BUMETANIDE 1 MG TABLET PO SCH (08:06)
[2017-12-06] MEDS: ASCORBIC ACID 500 MG TABLET PO SCH (08:06)
[2017-12-06] MEDS: AMIODARONE 200 MG TABLET PO SCH (08:07)
--- NOTE | 2017-12-06 08:23 | XRay Report ---
Indication: SOA PROCEDURE: XR chest 1V: Encounter: Initial Comparison: November 25, 2017 Findings: Lower lobe airspace disease has slightly improved with residual mild opacity remaining and small effusions. Right PICC line is new with the tip projecting over the lower SVC. Left pacemaker. No pneumothorax. Upper lung cardoso clear. Heart size and mediastinal contours are stable. Pulmonary vascularity remains prominent. Impression: New right PICC line as above. Slowly improving aeration of the lung bases with mild edema remaining. .
[2017-12-06] MEDS: INSULIN ASPART 100unit/ml INJECTION SQ PRN ×2 (10:37→21:00)
[2017-12-06] MEDS: ACETAMINOPHEN 500 MG TABLET PO PRN ×2 (10:44→17:12)
--- NOTE | 2017-12-06 13:26 | Progress Note ---
- Date 12/06/17 Subjective: Angela is having a good day and is very pleased with her progress. Her only concern is that when she woke up this morning she noticed that her BiPAP machine was quiet. However, she didn't feel SOA and her oxygen sat was normal. RT has been notified. She denies feeling SOA at the moment. She ate part of her lunch but skipped the pasta b/c it was too spicy for her liking. She states that she's been working well with therapy. Objective Vital signs: Temperature 97.3 F 12/06/17 12:00 Pulse Rate 71 12/06/17 12:00 Respiratory Rate 20 12/06/17 12:00 Blood Pressure 135/57 12/06/17 12:00 Pulse Oximetry 95 12/06/17 12:00 Height/Weight/BMI: Height 1.63 m Weight 77.7 kg Body Mass Index 29.0 - Constitutional Present: no acute distress, well nourished, well developed - Routine HEENT Exam Head: Present: normocephalic Eye: Present: PERRL. Absent: conjunctival icterus, scleral injection ENT: Present: mucous membranes moist. Absent: dentition normal (dentures in) - Routine Respiratory Exam Present: crackles (b/l bases) - Routine Cardiovascular Exam Present: RRR, S1, S2 - Routine Abdominal Exam Present: soft, normoactive bowel sounds, non tender - Routine Extremities Exam Present: edema (trace RLE) - Routine Skin Exam Present: dry, warm, wounds (dressing and postop shoe to right foot) - Routine Neurological Exam Present: alert, oriented X3, CN II-XII intact, moving all extremities, vision grossly intact, hearing grossly intact, normal speech. Absent: sensory deficit , motor deficit, altered mental status, facial asymmetry - Routine Psychiatric Exam Present: normal affect, normal thought process, cooperative Results - Labs CBC & Chem 7: 12/06/17 05:09 12/06/17 05:09 Microbiology Results: Microbiology 12/01/17 12:08 Urine, Voided (Cc/notcc) Urine Culture - Final No Growth After 2 Days Assessment and Plan (1) Osteomyelitis of ankle or foot Current visit: No Status: Acute Assessment and Plan: Impression Osteomyelitis, right lower extremity wound. Diabetic foot ulcer Hypernatremia Anemia Esophageal cancer-chemotherapy, currently on hold Type II diabetes Peripheral artery disease Acute on chronic kidney disease. Congestive heart failure Atrial fibrillation. COPD-chronic oxygen use at 2 liters Hypothyroidism Plan CXR reviewed - improvement noted. Down to 1L per NC. Renal function stable, BUN 33 and cr 1.9. Na still high but also stable at 150. Hgb down to 7.4 but overall asymptomatic - monitor. TSH trending down after initiation of Synthroid back in September,.03 Encouraged PT/OT. Continue Zosyn for osteomyelitis of the right 1st metatarsal through December 22, 2017. Wound care per Dr. Lopez/wound team. Stephenie - Lab put in for Saturday12/09/17 GI Prophylaxis: Protonix Resuscitation Status: Do Not Resuscitate - Physician Narrative Physician: Vishnu Casiano MD Narrative: Date: 12/06/17 Time: 1950 Have independently interviewed and examined pt. Chart reviewed. 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 Care plan developed with my supervision; agree with above. Doing well this evening. Had good work out with therapy-able to go further than yesterday. Breathing stable. Lungs: decreased, no distress CV: regular AB: soft nt MSE: awake alert appropriat Plan: Continue antibiotics and wound care. Did put in CMP, Mg, CRP, and CBC for Saturday. Overall doing well. Functional abilities making gains. Hospital Course Summary Disclaimer: The visit summary below is not to be considered part of the above Progress Note. Hospital Course: 11/28/17 [place] [facility] [place]. 11/29/17 - Wound/Surgical note: HGB has been stable in the 7 range for a week. Continue treatment for esophageal ulceration associated with her esophageal cancer. Continue to monitor HGB. Grade 3 DFU with osteomyelitis right foot is slowly improving, showing new granulation at the perimeter and in the center. Continue the Aquacel Q3 days and prn, and ABX per Dr. Fernandez. Small ulceration medial met head area is now soft, no purulence. Re re-start the Aquacel in the area, Q3d and prn. Dry eschar wounds dorsum of toes and large unstageable dry eschar of heel will continue Betadine paint BID. Off load with foam boot. May use "surgical shoe" for short distance (like the distance to the bathroom) ambulation with PT, she will not be able to wear her regular shoe for any significant amount of walking.The surgical shoe can be put over the dressings, but that would at least get the joints and muscles moving a little. 11/29/17 Admitted yesterday to swing bed status under the care of Dr. Caraballo. Appreciate ongoing infectious disease consultation and recommendations by Dr. Afua Fernandez. Patient will continue to receive IV Zosyn for treatment of osteomyelitis of the right 1st metatarsal. Course will be complete through December 22, 2017. Lower extremity wound will continue to be followed by the wound care center and Dr. Lopez. Continue to follow routine labs periodically through her stay. She has been anemic during her acute visit, hemoglobin has been low, however, remained stable , today 7.2 Routine Bumex was placed on hold yesterday 11/28 given. Hypovolemia with elevated sodium of 151. Patient was given 1 liter of IV fluids, today sodium has improved to 145. Will monitor carefully, suspect patient well need to be placed back on Bumex in the near future for chronic diuresing. Monitor daily under weights and I/O Carefully Continue to monitor renal function carefully, creatinine today 1.5 11/30/17 Admitted yesterday to swing bed status under the care of Dr. Craaballo. Appreciate ongoing infectious disease consultation and recommendations by Dr. Afua Fernandez. Patient will continue to receive IV Zosyn for treatment of osteomyelitis of the right 1st metatarsal. Course will be complete through December 22, 2017. Lower extremity wound will continue to be followed by the wound care center and Dr. Lopez. Continue to follow routine labs periodically through her stay. She has been anemic during her acute visit, hemoglobin has been low, however, remained stable , today 7.2 Routine Bumex was placed on hold 11/28 given hypovolemia with elevated sodium. Monitor po intake on dysphagia diet. She is particularly having trouble with thickened liquids. 12/01/17 Overall, Angela appears to be doing well. She complains of urinary urgency. UA obtained revealed 50-200 WBC with 5-10 squamous epithelial cells, 1-3 transition epithelial cells and trace bacteria. Will hold off on additional antibiotic treatment until culture is available. She remains on IV Zosyn for treatment of osteomyelitis of the right 1st metatarsal. Course will be complete through December 22, 2017. Appreciate ongoing infectious disease consultation and recommendations by Dr. Afua Fernandez. Lower extremity wound will continue to be followed by the wound care center and Dr. Lopez. Weight slowly trending up. Routine Bumex was placed on hold 11/28 given hypovolemia. Continue to monitor oral intake on dysphagia diet. She is particularly having trouble with thickened liquids. Hypernatremia resolved with Bumex on hold. Anemia stable. Continue to monitor electrolytes closely. Blood sugars slightly elevated. Will increase breakfast NovoLog to 2 units and continue to monitor closely, adjusting as indicated. Continue to monitor I&O closely as well as daily weight. Will discuss restarting home Bumex with Dr. Caraballo given resolution of hypernatremia and increasing weight and blood pressure. Plan is for patient to remain on swing bed status through the course of her antibiotics. 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 However weight trends up and she is not requiring more oxygen- suspect edema extravascularly. Will given D5W- at 75 ml/hr for gently hydration given decreased PO fluid intake. Will Give 1 unit of PRBC given anemia. Give a one time dose of IV Bumex this afternoon following transfusion. She was previously on Bumex BID however it was held 11/28 and resumed daily this morning. Continue on IV Zosyn for treatment of osteomyelitis of the right 1st metatarsal. Course will be complete through December 22, 2017. 12/03/17 UA was collected yesterday 12/01- C/S revels no growth after 1 day - No treatment Given increased wheezing will give additional dose of Bumex 1 mg IV this afternoon Oxygen demands are slightly up from baseline Continue to follow Hgb- 7.6 today Continue on IV Zosyn for treatment of osteomyelitis of the right 1st metatarsal. Course will be complete through December 22, 2017. 12/04/17 Extra Bumex given yesterday - No wheezing on exam today. Renal function has been worsening; currently at 2.1. Weight trending up. 12/05/17 Increased subjective SOA today; will repeat CXR. Cr 2.0. Na 150. 12/06/17 CXR reviewed - improvement noted. Down to 1L per NC. Renal function stable, BUN 33 and cr 1.9. Na still high but also stable at 150. Hgb down to 7.4 but overall asymptomatic - monitor. TSH trending down after initiation of Synthroid back in September,.03
[2017-12-06] MEDS: TAZOBACTAM IV SCH (18:26)
[2017-12-06] MEDS: D5W IV SCH (18:26)
[2017-12-06] MEDS: PIPERACILLIN IV SCH (18:26)
[2017-12-06] MEDS: ATORVASTATIN 40 MG TABLET PO SCH (20:57)
[2017-12-06] MEDS: MIRTAZAPINE 15 MG TABLET PO SCH (20:57)
[2017-12-06] MEDS: INSULIN DETEMIR 100unit/ml INJECTION SQ SCH (20:59)
[2017-12-07] MEDS: ACETAMINOPHEN 500 MG TABLET PO PRN ×2 (00:16→12:48)
[2017-12-07] MEDS: PIPERACILLIN IV SCH ×4 (01:10→18:32)
[2017-12-07] MEDS: TAZOBACTAM IV SCH ×4 (01:10→18:32)
[2017-12-07] MEDS: D5W IV SCH ×4 (01:10→18:32)
[2017-12-07] MEDS: PANTOPRAZOLE 40 MG TABLET PO SCH ×2 (06:08→17:32)
[2017-12-07] MEDS: SUCRALFATE 1gm/10ml ORAL LIQUID PO SCH ×4 (06:09→21:13)
[2017-12-07] MEDS: LEVOTHYROXINE 25 MCG TABLET PO SCH (06:09)
[2017-12-07] MEDS: LISINOPRIL 2.5 MG TABLET PO SCH (08:37)
[2017-12-07] MEDS: AMLODIPINE 2.5 MG TABLET PO SCH (08:37)
[2017-12-07] MEDS: BUMETANIDE 1 MG TABLET PO SCH (08:37)
[2017-12-07] MEDS: INSULIN ASPART 100unit/ml INJECTION SQ SCH ×3 (08:38→17:32)
[2017-12-07] MEDS: AMIODARONE 200 MG TABLET PO SCH (08:38)
[2017-12-07] MEDS: LACTOBACILLUS (15B cfu) CAPSULE PO SCH ×2 (08:38→17:32)
[2017-12-07] MEDS: FERROUS SULFATE 324 MG TABLET PO SCH (08:38)
[2017-12-07] MEDS: ASCORBIC ACID 500 MG TABLET PO SCH (08:38)
[2017-12-07] MEDS: ASPIRIN 81 MG CHEWABLE TABLET PO SCH (08:38)
[2017-12-07] MEDS: CARVEDILOL 12.5 MG TABLET PO SCH ×2 (08:38→17:32)
[2017-12-07] MEDS: INSULIN ASPART 100unit/ml INJECTION SQ PRN (12:41)
--- NOTE | 2017-12-07 14:44 | Progress Note ---
- Date 12/07/17 Subjective: No new issues. Up in chair visiting with friend. Objective Vital signs: Temperature 96.6 F L 12/07/17 12:57 Pulse Rate 70 12/07/17 12:57 Respiratory Rate 18 12/07/17 12:57 Blood Pressure 151/60 H 12/07/17 12:57 Pulse Oximetry 96 12/07/17 12:57 Height/Weight/BMI: Height 5 ft 4 in Weight 77.5 kg Body Mass Index 29.0 - Constitutional Present: no acute distress - Routine Respiratory Exam Present: CTA bilaterally - Routine Cardiovascular Exam Present: RRR - Routine Abdominal Exam Present: soft, non distended, non tender - Routine Extremities Exam Present: no edema Comments: surgical shoe in place right foot - Routine Skin Exam Present: intact, dry, warm - Routine Neurological Exam Present: alert, oriented X3, CN II-XII intact Results - Labs CBC & Chem 7: 12/06/17 05:09 12/06/17 05:09 Microbiology Results: Microbiology 12/01/17 12:08 Urine, Voided (Cc/notcc) Urine Culture - Final No Growth After 2 Days Assessment and Plan (1) Osteomyelitis of ankle or foot Current visit: No Status: Acute Assessment and Plan: Impression Osteomyelitis, right lower extremity wound. Diabetic foot ulcer Hypernatremia Anemia Esophageal cancer-chemotherapy, currently on hold Type II diabetes Peripheral artery disease Acute on chronic kidney disease. Congestive heart failure Atrial fibrillation. COPD-chronic oxygen use at 2 liters Hypothyroidism Plan CXR reviewed - improvement noted. At baseline 2 liters oxygen. On oral bumex. Renal function stable, BUN 33 and cr 1.9. Na still high but also stable at 150. Hgb down to 7.4 but overall asymptomatic - monitor. Repeat labs saturday. TSH trending down after initiation of Synthroid back in September,.03 Encouraged PT/OT. Continue Zosyn for osteomyelitis of the right 1st metatarsal through December 22, 2017. Wound care per Dr. Lopez/wound team. - Physician Narrative Narrative: Date: 12/07/17 Time: 1438 Hospital Course Summary Disclaimer: The visit summary below is not to be considered part of the above Progress Note. Hospital Course: 11/28/17 Admitted to Swing bed at [facility] for continuation of IV antibiotics. 11/29/17 - Wound/Surgical note: HGB has been stable in the 7 range for a week. Continue treatment for esophageal ulceration associated with her esophageal cancer. Continue to monitor HGB. Grade 3 DFU with osteomyelitis right foot is slowly improving, showing new granulation at the perimeter and in the center. Continue the Aquacel Q3 days and prn, and ABX per Dr. Fernandez. Small ulceration medial met head area is now soft, no purulence. Re re-start the Aquacel in the area, Q3d and prn. Dry eschar wounds dorsum of toes and large unstageable dry eschar of heel will continue Betadine paint BID. Off load with foam boot. May use "surgical shoe" for short distance (like the distance to the bathroom) ambulation with PT, she will not be able to wear her regular shoe for any significant amount of walking.The surgical shoe can be put over the dressings, but that would at least get the joints and muscles moving a little. 11/29/17 Admitted yesterday to swing bed status under the care of Dr. Caraballo. Appreciate ongoing infectious disease consultation and recommendations by Dr. Afua Fernandez. Patient will continue to receive IV Zosyn for treatment of osteomyelitis of the right 1st metatarsal. Course will be complete through December 22, 2017. Lower extremity wound will continue to be followed by the wound care center and Dr. Lopez. Continue to follow routine labs periodically through her stay. She has been anemic during her acute visit, hemoglobin has been low, however, remained stable , today 7.2 Routine Bumex was placed on hold yesterday 11/28 given. Hypovolemia with elevated sodium of 151. Patient was given 1 liter of IV fluids, today sodium has improved to 145. Will monitor carefully, suspect patient well need to be placed back on Bumex in the near future for chronic diuresing. Monitor daily under weights and I/O Carefully Continue to monitor renal function carefully, creatinine today 1.5 11/30/17 Admitted yesterday to swing bed status under the care of Dr. Caraballo. Appreciate ongoing infectious disease consultation and recommendations by Dr. Afua Fernandez. Patient will continue to receive IV Zosyn for treatment of osteomyelitis of the right 1st metatarsal. Course will be complete through December 22, 2017. Lower extremity wound will continue to be followed by the wound care center and Dr. Lopez. Continue to follow routine labs periodically through her stay. She has been anemic during her acute visit, hemoglobin has been low, however, remained stable , today 7.2 Routine Bumex was placed on hold 11/28 given hypovolemia with elevated sodium. Monitor po intake on dysphagia diet. She is particularly having trouble with thickened liquids. 12/01/17 Overall, Angela appears to be doing well. She complains of urinary urgency. UA obtained revealed 50-200 WBC with 5-10 squamous epithelial cells, 1-3 transition epithelial cells and trace bacteria. Will hold off on additional antibiotic treatment until culture is available. She remains on IV Zosyn for treatment of osteomyelitis of the right 1st metatarsal. Course will be complete through December 22, 2017. Appreciate ongoing infectious disease consultation and recommendations by Dr. Afua Fernandez. Lower extremity wound will continue to be followed by the wound care center and Dr. Lopez. Weight slowly trending up. Routine Bumex was placed on hold 11/28 given hypovolemia. Continue to monitor oral intake on dysphagia diet. She is particularly having trouble with thickened liquids. Hypernatremia resolved with Bumex on hold. Anemia stable. Continue to monitor electrolytes closely. Blood sugars slightly elevated. Will increase breakfast NovoLog to 2 units and continue to monitor closely, adjusting as indicated. Continue to monitor I&O closely as well as daily weight. Will discuss restarting home Bumex with Dr. Caraballo given resolution of hypernatremia and increasing weight and blood pressure. Plan is for patient to remain on swing bed status through the course of her antibiotics. 12/02/17 UA was collected yesterday 12/01- Holding off tx until C/S resulted Requiring increased oxygen today to 4 liters Suspect she is intravascularly dry given Hypernatremia and elevated [employer]. However weight trends up and she is not requiring more oxygen- suspect edema extravascularly. Will given D5W- at 75 ml/hr for gently hydration given decreased PO fluid intake. Will Give 1 unit of PRBC given anemia. Give a one time dose of IV Bumex this afternoon following transfusion. She was previously on Bumex BID however it was held 11/28 and resumed daily this morning. Continue on IV Zosyn for treatment of osteomyelitis of the right 1st metatarsal. Course will be complete through December 22, 2017. 12/03/17 UA was collected yesterday 12/01- C/S revels no growth after 1 day - No treatment Given increased wheezing will give additional dose of Bumex 1 mg IV this afternoon Oxygen demands are slightly up from baseline Continue to follow Hgb- 7.6 today Continue on IV Zosyn for treatment of osteomyelitis of the right 1st metatarsal. Course will be complete through December 22, 2017. 12/04/17 Extra Bumex given yesterday - No wheezing on exam today. Renal function has been worsening; currently at 2.1. Weight trending up. 12/05/17 Increased subjective SOA today; will repeat CXR. Cr 2.0. Na 150. 12/06/17 CXR reviewed - improvement noted. Down to 1L per NC. Renal function stable, BUN 33 and cr 1.9. Na still high but also stable at 150. Hgb down to 7.4 but overall asymptomatic - monitor. TSH trending down after initiation of Synthroid back in September, 6.12/07/17 CXR reviewed - improvement noted. At baseline 2 liters oxygen. On oral bumex. Renal function stable, BUN 33 and cr 1.9. Na still high but also stable at 150. Hgb down to 7.4 but overall asymptomatic - monitor. Repeat labs saturday. TSH trending down after initiation of Synthroid back in September,. Encouraged PT/OT. Continue Zosyn for osteomyelitis of the right 1st metatarsal through December 22, 2017. Wound care per Dr. Lopez/wound team.
[2017-12-07] MEDS: SALINE FLUSH 10ml SYRINGE IVF PRN (21:12)
[2017-12-07] MEDS: INSULIN DETEMIR 100unit/ml INJECTION SQ SCH (21:12)
[2017-12-07] MEDS: ATORVASTATIN 40 MG TABLET PO SCH (21:13)
[2017-12-07] MEDS: MIRTAZAPINE 15 MG TABLET PO SCH (21:13)
[2017-12-08] MEDS: D5W IV SCH ×4 (00:50→18:48)
[2017-12-08] MEDS: PIPERACILLIN IV SCH ×4 (00:50→18:48)
[2017-12-08] MEDS: TAZOBACTAM IV SCH ×4 (00:50→18:48)
[2017-12-08] MEDS: PANTOPRAZOLE 40 MG TABLET PO SCH ×2 (05:57→16:53)
[2017-12-08] MEDS: LEVOTHYROXINE 25 MCG TABLET PO SCH (05:57)
[2017-12-08] MEDS: SUCRALFATE 1gm/10ml ORAL LIQUID PO SCH ×4 (05:57→20:00)
[2017-12-08] MEDS: FERROUS SULFATE 324 MG TABLET PO SCH (08:41)
[2017-12-08] MEDS: CARVEDILOL 12.5 MG TABLET PO SCH ×2 (08:41→16:53)
[2017-12-08] MEDS: AMLODIPINE 2.5 MG TABLET PO SCH (08:41)
[2017-12-08] MEDS: BUMETANIDE 1 MG TABLET PO SCH (08:41)
[2017-12-08] MEDS: ASCORBIC ACID 500 MG TABLET PO SCH (08:41)
[2017-12-08] MEDS: LISINOPRIL 2.5 MG TABLET PO SCH (08:42)
[2017-12-08] MEDS: LACTOBACILLUS (15B cfu) CAPSULE PO SCH ×2 (08:42→16:55)
[2017-12-08] MEDS: INSULIN ASPART 100unit/ml INJECTION SQ SCH ×3 (08:42→17:22)
[2017-12-08] MEDS: ASPIRIN 81 MG CHEWABLE TABLET PO SCH (08:42)
[2017-12-08] MEDS: AMIODARONE 200 MG TABLET PO SCH (08:42)
[2017-12-08] MEDS: ACETAMINOPHEN 500 MG TABLET PO PRN ×2 (09:11→22:11)
[2017-12-08] MEDS: INSULIN ASPART 100unit/ml INJECTION SQ PRN (14:45)
--- NOTE | 2017-12-08 15:14 | Progress Note ---
- Date 12/08/17 Subjective: Angela is seen today in follow up. She is feeling fairly well. Denies any acute pain. Is a bit sleepy- resting up in chair. Objective Vital signs: Temperature 97.1 F 12/08/17 11:39 Pulse Rate 73 12/08/17 11:39 Respiratory Rate 18 12/08/17 08:00 Blood Pressure 118/53 12/08/17 11:39 Pulse Oximetry 91 12/08/17 11:39 Height/Weight/BMI: Height 1.63 m Weight 80 kg Body Mass Index 29.0 - Constitutional Present: no acute distress, well nourished, well developed, cooperative - Routine HEENT Exam Head: Present: normocephalic, atraumatic Eye: Present: EOMI, PERRL ENT: Present: mucous membranes dry - Routine Respiratory Exam Present: CTA bilaterally, diminished air movement. Absent: rales, rhonchi, wheezes - Routine Cardiovascular Exam Present: RRR, S1, S2, no murmur - Routine Abdominal Exam Present: soft, normoactive bowel sounds, non distended, non tender - Routine Extremities Exam Present: no edema, non tender - Routine Musculoskeletal Exam Musculoskeletal: Present: normal strength, moving extremities well - Routine Skin Exam Present: intact, dry, pallor, warm - Routine Neurological Exam Present: alert, moving all extremities - Routine Psychiatric Exam Present: cooperative Results - Labs CBC & Chem 7: 12/06/17 05:09 12/06/17 05:09 Microbiology Results: Microbiology 12/01/17 12:08 Urine, Voided (Cc/notcc) Urine Culture - Final No Growth After 2 Days Assessment and Plan (1) Osteomyelitis of ankle or foot Current visit: No Status: Acute Assessment and Plan: Impression Osteomyelitis, right lower extremity wound. Diabetic foot ulcer Hypernatremia Anemia Esophageal cancer-chemotherapy, currently on hold Type II diabetes Peripheral artery disease Acute on chronic kidney disease. Congestive heart failure Atrial fibrillation. COPD-chronic oxygen use at 2 liters Hypothyroidism Plan 12/08/17-SWING status. At baseline 2 liters oxygen. On oral bumex-repeat serum sodium. May need to decrease dose of Bumex. Renal function stable, BUN 33 and cr 1.9. Na still high but also stable at 150. Hgb down to 7.4 but overall asymptomatic - monitor. Repeat labs now and in AM. TSH trending down after initiation of Synthroid back in September, 6.03 Encouraged PT/OT. Unable to use blood thinners due to concern for slow GI blood losses. Continue SCDs. Continue Zosyn for osteomyelitis of the right 1st metatarsal through December 22, 2017. Wound care per Dr. Lopez/wound team. I have seen and examined the patient independent of the midlevel above. I agree with the findings and assessment above. Remains up in chair at my visit. Complains of somewhat chronic right shoulder pain that has occurred after she dislocated her shoulder in a fall. Gen: Alert and oriented X 3. NAD CV: irregular, RR Lungs: CTAB, no w/r/r Abd: soft, NT, ND, + BS Ext: no c/c/e. right foot in surgical shoe Skin: dressing of right foot c/d/i. Neuro: no focal signs Labs planned for tomorrow were moved to today by midlevel, will follow. Consider titrated synthroid up as it has been 3 months. Continue zosyn per ID through 12/22. PT. DVT Prophylaxis: SCD's GI Prophylaxis: Protonix Resuscitation Status: Do Not Resuscitate - Physician Narrative Narrative: Date: 12/08/17 Time: 1510 Hospital Course Summary Disclaimer: The visit summary below is not to be considered part of the above Progress Note. Hospital Course: 11/28/17 Admitted to Swing bed at [facility] for continuation of IV antibiotics. 11/29/17 - Wound/Surgical note: HGB has been stable in the 7 range for a week. Continue treatment for esophageal ulceration associated with her esophageal cancer. Continue to monitor HGB. Grade 3 DFU with osteomyelitis right foot is slowly improving, showing new granulation at the perimeter and in the center. Continue the Aquacel Q3 days and prn, and ABX per Dr. Fernandez. Small ulceration medial met head area is now soft, no purulence. Re re-start the Aquacel in the area, Q3d and prn. Dry eschar wounds dorsum of toes and large unstageable dry eschar of heel will continue Betadine paint BID. Off load with foam boot. May use "surgical shoe" for short distance (like the distance to the bathroom) ambulation with PT, she will not be able to wear her regular shoe for any significant amount of walking.The surgical shoe can be put over the dressings, but that would at least get the joints and muscles moving a little. 11/29/17 Admitted yesterday to swing bed status under the care of Dr. Caraballo. Appreciate ongoing infectious disease consultation and recommendations by Dr. Afua Fernandez. Patient will continue to receive IV Zosyn for treatment of osteomyelitis of the right 1st metatarsal. Course will be complete through December 22, 2017. Lower extremity wound will continue to be followed by the wound care center and Dr. Lopez. Continue to follow routine labs periodically through her stay. She has been anemic during her acute visit, hemoglobin has been low, however, remained stable , today 7.2 Routine Bumex was placed on hold yesterday 11/28 given. Hypovolemia with elevated sodium of 151. Patient was given 1 liter of IV fluids, today sodium has improved to 145. Will monitor carefully, suspect patient well need to be placed back on Bumex in the near future for chronic diuresing. Monitor daily under weights and I/O Carefully Continue to monitor renal function carefully, creatinine today 1.5 11/30/17 Admitted yesterday to swing bed status under the care of Dr. Caraballo. Appreciate ongoing infectious disease consultation and recommendations by Dr. Afua Fernandez. Patient will continue to receive IV Zosyn for treatment of osteomyelitis of the right 1st metatarsal. Course will be complete through December 22, 2017. Lower extremity wound will continue to be followed by the wound care center and Dr. Lopez. Continue to follow routine labs periodically through her stay. She has been anemic during her acute visit, hemoglobin has been low, however, remained stable , today 7.2 Routine Bumex was placed on hold 11/28 given hypovolemia with elevated sodium. Monitor po intake on dysphagia diet. She is particularly having trouble with thickened liquids. 12/01/17 Overall, Angela appears to be doing well. She complains of urinary urgency. UA obtained revealed 50-200 WBC with 5-10 squamous epithelial cells, 1-3 transition epithelial cells and trace bacteria. Will hold off on additional antibiotic treatment until culture is available. She remains on IV Zosyn for treatment of osteomyelitis of the right 1st metatarsal. Course will be complete through December 22, 2017. Appreciate ongoing infectious disease consultation and recommendations by Dr. Afua Fernandez. Lower extremity wound will continue to be followed by the wound care center and Dr. Lopez. Weight slowly trending up. Routine Bumex was placed on hold 11/28 given hypovolemia. Continue to monitor oral intake on dysphagia diet. She is particularly having trouble with thickened liquids. Hypernatremia resolved with Bumex on hold. Anemia stable. Continue to monitor electrolytes closely. Blood sugars slightly elevated. Will increase breakfast NovoLog to 2 units and continue to monitor closely, adjusting as indicated. Continue to monitor I&O closely as well as daily weight. Will discuss restarting home Bumex with Dr. Caraballo given resolution of hypernatremia and increasing weight and blood pressure. Plan is for patient to remain on swing bed status through the course of her antibiotics. 12/02/17 UA was collected yesterday 12/01- Holding off tx until C/S resulted Requiring increased oxygen today to 4 liters Suspect she is intravascularly dry given Hypernatremia and elevated [employer]. However weight trends up and she is not requiring more oxygen- suspect edema extravascularly. Will given D5W- at 75 ml/hr for gently hydration given decreased PO fluid intake. Will Give 1 unit of PRBC given anemia. Give a one time dose of IV Bumex this afternoon following transfusion. She was previously on Bumex BID however it was held 11/28 and resumed daily this morning. Continue on IV Zosyn for treatment of osteomyelitis of the right 1st metatarsal. Course will be complete through December 22, 2017. 12/03/17 UA was collected yesterday 12/01- C/S revels no growth after 1 day - No treatment Given increased wheezing will give additional dose of Bumex 1 mg IV this afternoon Oxygen demands are slightly up from baseline Continue to follow Hgb- 7.6 today Continue on IV Zosyn for treatment of osteomyelitis of the right 1st metatarsal. Course will be complete through December 22, 2017. 12/04/17 Extra Bumex given yesterday - No wheezing on exam today. Renal function has been worsening; currently at 2.1. Weight trending up. 12/05/17 Increased subjective SOA today; will repeat CXR. Cr 2.0. Na 150. 12/06/17 CXR reviewed - improvement noted. Down to 1L per NC. Renal function stable, BUN 33 and cr 1.9. Na still high but also stable at 150. Hgb down to 7.4 but overall asymptomatic - monitor. TSH trending down after initiation of Synthroid back in September,.03 12/07/17 CXR reviewed - improvement noted. At baseline 2 liters oxygen. On oral bumex. Renal function stable, BUN 33 and cr 1.9. Na still high but also stable at 150. Hgb down to 7.4 but overall asymptomatic - monitor. Repeat labs saturday. TSH trending down after initiation of Synthroid back in September,.03 Encouraged PT/OT. Continue Zosyn for osteomyelitis of the right 1st metatarsal through December 22, 2017. Wound care per Dr. Lopez/wound team. 12/08/17-SWING status. At baseline 2 liters oxygen. On oral bumex-repeat serum sodium. May need to decrease dose of Bumex. Renal function stable, BUN 33 and cr 1.9. Na still high but also stable at 150. Hgb down to 7.4 but overall asymptomatic - monitor. Repeat labs now and in AM. TSH trending down after initiation of Synthroid back in September,.03 Encouraged PT/OT. Unable to use blood thinners due to concern for slow GI blood losses. Continue SCDs. Continue Zosyn for osteomyelitis of the right 1st metatarsal through December 22, 2017. Wound care per Dr. Lopez/wound team.
[2017-12-08] MEDS: SALINE FLUSH 10ml SYRINGE IVF PRN (18:48)
[2017-12-08] MEDS: NS FLUSH BAG 500ml IV PRN (18:50)
[2017-12-08] MEDS: MIRTAZAPINE 15 MG TABLET PO SCH (20:00)
[2017-12-08] MEDS: ATORVASTATIN 40 MG TABLET PO SCH (20:00)
[2017-12-08] MEDS: INSULIN DETEMIR 100unit/ml INJECTION SQ SCH (20:00)
[2017-12-09] MEDS: TAZOBACTAM IV SCH ×4 (01:55→18:55)
[2017-12-09] MEDS: PIPERACILLIN IV SCH ×4 (01:55→18:55)
[2017-12-09] MEDS: D5W IV SCH ×4 (01:55→18:55)
[2017-12-09] MEDS: SUCRALFATE 1gm/10ml ORAL LIQUID PO SCH ×4 (06:19→20:58)
[2017-12-09] MEDS: LEVOTHYROXINE 25 MCG TABLET PO SCH (06:19)
[2017-12-09] MEDS: PANTOPRAZOLE 40 MG TABLET PO SCH ×2 (06:19→17:08)
[2017-12-09] MEDS: AMIODARONE 200 MG TABLET PO SCH (08:51)
[2017-12-09] MEDS: LISINOPRIL 2.5 MG TABLET PO SCH (08:51)
[2017-12-09] MEDS: ASCORBIC ACID 500 MG TABLET PO SCH (08:51)
[2017-12-09] MEDS: INSULIN ASPART 100unit/ml INJECTION SQ SCH ×3 (08:51→17:08)
[2017-12-09] MEDS: AMLODIPINE 2.5 MG TABLET PO SCH (08:51)
[2017-12-09] MEDS: CARVEDILOL 12.5 MG TABLET PO SCH ×2 (08:51→17:08)
[2017-12-09] MEDS: LACTOBACILLUS (15B cfu) CAPSULE PO SCH ×2 (08:51→17:08)
[2017-12-09] MEDS: FERROUS SULFATE 324 MG TABLET PO SCH (08:51)
[2017-12-09] MEDS: ASPIRIN 81 MG CHEWABLE TABLET PO SCH (08:51)
[2017-12-09] MEDS: BUMETANIDE 1 MG TABLET PO SCH (08:51)
[2017-12-09] MEDS: ACETAMINOPHEN 500 MG TABLET PO PRN ×2 (09:46→21:00)
--- NOTE | 2017-12-09 10:00 | General Surgery Progress Note ---
Subjective Patient reports: tolerating a regular diet, voiding w/o difficulty, shortness of breath (on oxygen chronically at home as well as in hospital), afebrile Narrative: she is feeling good, states only an occasional episode of mild dyspepsia. She has been working with PT using a post-op shoe. Denies chest pain. - Vital Signs Last Vital Signs Temp 97.4 F 12/09/17 07:11 Pulse 68 12/09/17 07:11 Resp 18 12/09/17 07:11 BP 153/63 H 12/09/17 07:11 Pulse Ox 90 12/09/17 07:11 - Laboratory Result Diagrams: 12/09/17 05:19 12/09/17 05:19 Laboratory Tests 12/06/17 12/08/17 12/09/17 05:09 15:29 05:19 Hgb 7.4 L 7.5 L 8.1 L - Abnormal Exam Respiratory: rales, other (on oxygen by NC) Skin: Right DFU granulation beefy red, nearly flush with surrounding skin. The small denuded area at right met head clean and epithelial tissue forming. Right Achilles area now without redness, will DC foam to this area. Heel with dry eschar, no bogginess or drainage, will continue Betadine and leave open to air or cover lightly with Kerlix. Dorsum of toes still have small dry eschar, continue to pain with Betadine. - Normal Exam General: awake, alert, oriented Cardiovascular: regular rate Abdominal: soft, non-tender Psychiatric: normal affect Assessment and Plan (1) Osteomyelitis of ankle or foot Current Visit: No Status: Acute (2) Unstageable pressure ulcer of right heel Current Visit: Yes Status: Acute (3) Esophageal cancer Current Visit: Yes Status: Chronic Qualifiers: Malignant neoplasm of esophagus location: lower third Qualified Code(s): C15.5 - Malignant neoplasm of lower third of esophagus (4) Esophageal ulcer with bleeding Current Visit: Yes Status: Acute (5) Acute anemia Current Visit: No Status: Resolved Plan: Anemia stable, HGB remains upper 7s-8s. Chemo for esophageal cancer on HOLD for now. Right Heel wound stable, dry, continue betadine paint BID Dorsum of toes right foot dry eschar wounds stable. DFUs healing, continue Aquacel and Mepilex, change every 3 days. Continue PT. Hospital Course Summary Disclaimer: The visit summary below is not to be considered part of the above Progress Note. Hospital Course: 11/28/17 Admitted to Swing bed at [facility] [place] for continuation of IV antibiotics. 11/29/17 - Wound/Surgical note: HGB has been stable in the 7 range for a week. Continue treatment for esophageal ulceration associated with her esophageal cancer. Continue to monitor HGB. Grade 3 DFU with osteomyelitis right foot is slowly improving, showing new granulation at the perimeter and in the center. Continue the Aquacel Q3 days and prn, and ABX per Dr. Fernandez. Small ulceration medial met head area is now soft, no purulence. Re re-start the Aquacel in the area, Q3d and prn. Dry eschar wounds dorsum of toes and large unstageable dry eschar of heel will continue Betadine paint BID. Off load with foam boot. May use "surgical shoe" for short distance (like the distance to the bathroom) ambulation with PT, she will not be able to wear her regular shoe for any significant amount of walking.The surgical shoe can be put over the dressings, but that would at least get the joints and muscles moving a little. 11/29/17 Admitted yesterday to swing bed status under the care of Dr. Caraballo. Appreciate ongoing infectious disease consultation and recommendations by Dr. Afua Fernandez. Patient will continue to receive IV Zosyn for treatment of osteomyelitis of the right 1st metatarsal. Course will be complete through December 22, 2017. Lower extremity wound will continue to be followed by the wound care center and Dr. Lopez. Continue to follow routine labs periodically through her stay. She has been anemic during her acute visit, hemoglobin has been low, however, remained stable , today 7.2 Routine Bumex was placed on hold yesterday 11/28 given. Hypovolemia with elevated sodium of 151. Patient was given 1 liter of IV fluids, today sodium has improved to 145. Will monitor carefully, suspect patient well need to be placed back on Bumex in the near future for chronic diuresing. Monitor daily under weights and I/O Carefully Continue to monitor renal function carefully, creatinine today 1.5 11/30/17 Admitted yesterday to swing bed status under the care of Dr. Caraballo. Appreciate ongoing infectious disease consultation and recommendations by Dr. Afua Fernandez. Patient will continue to receive IV Zosyn for treatment of osteomyelitis of the right 1st metatarsal. Course will be complete through December 22, 2017. Lower extremity wound will continue to be followed by the wound care center and Dr. Lopez. Continue to follow routine labs periodically through her stay. She has been anemic during her acute visit, hemoglobin has been low, however, remained stable , today 7.2 Routine Bumex was placed on hold 11/28 given hypovolemia with elevated sodium. Monitor po intake on dysphagia diet. She is particularly having trouble with thickened liquids. 12/01/17 Overall, Angela appears to be doing well. She complains of urinary urgency. UA obtained revealed 50-200 WBC with 5-10 squamous epithelial cells, 1-3 transition epithelial cells and trace bacteria. Will hold off on additional antibiotic treatment until culture is available. She remains on IV Zosyn for treatment of osteomyelitis of the right 1st metatarsal. Course will be complete through December 22, 2017. Appreciate ongoing infectious disease consultation and recommendations by Dr. Afua Fernandez. Lower extremity wound will continue to be followed by the wound care center and Dr. Lopez. Weight slowly trending up. Routine Bumex was placed on hold 11/28 given hypovolemia. Continue to monitor oral intake on dysphagia diet. She is particularly having trouble with thickened liquids. Hypernatremia resolved with Bumex on hold. Anemia stable. Continue to monitor electrolytes closely. Blood sugars slightly elevated. Will increase breakfast NovoLog to 2 units and continue to monitor closely, adjusting as indicated. Continue to monitor I&O closely as well as daily weight. Will discuss restarting home Bumex with Dr. Caraballo given resolution of hypernatremia and increasing weight and blood pressure. Plan is for patient to remain on swing bed status through the course of her antibiotics. 12/02/17 UA was collected yesterday 12/01- Holding off tx until C/S resulted Requiring increased oxygen today to 4 liters Suspect she is intravascularly dry given Hypernatremia and elevated [place]. However weight trends up and she is not requiring more oxygen- suspect edema extravascularly. Will given D5W- at 75 ml/hr for gently hydration given decreased PO fluid intake. Will Give 1 unit of PRBC given anemia. Give a one time dose of IV Bumex this afternoon following transfusion. She was previously on Bumex BID however it was held 11/28 and resumed daily this morning. Continue on IV Zosyn for treatment of osteomyelitis of the right 1st metatarsal. Course will be complete through December 22, 2017. 12/03/17 UA was collected yesterday 12/01- C/S revels no growth after 1 day - No treatment Given increased wheezing will give additional dose of Bumex 1 mg IV this afternoon Oxygen demands are slightly up from baseline Continue to follow Hgb- 7.6 today Continue on IV Zosyn for treatment of osteomyelitis of the right 1st metatarsal. Course will be complete through December 22, 2017. 12/04/17 Extra Bumex given yesterday - No wheezing on exam today. Renal function has been worsening; currently at 2.1. Weight trending up. 12/05/17 Increased subjective SOA today; will repeat CXR. Cr 2.0. Na 150. 12/06/17 CXR reviewed - improvement noted. Down to 1L per NC. Renal function stable, BUN 33 and cr 1.9. Na still high but also stable at 150. Hgb down to 7.4 but overall asymptomatic - monitor. TSH trending down after initiation of Synthroid back in September, 6.03 12/07/17 CXR reviewed - improvement noted. At baseline 2 liters oxygen. On oral bumex. Renal function stable, BUN 33 and cr 1.9. Na still high but also stable at 150. Hgb down to 7.4 but overall asymptomatic - monitor. Repeat labs saturday. TSH trending down after initiation of Synthroid back in September,.03 Encouraged PT/OT. Continue Zosyn for osteomyelitis of the right 1st metatarsal through December 22, 2017. Wound care per Dr. Lopez/wound team. 12/08/17-SWING status. At baseline 2 liters oxygen. On oral bumex-repeat serum sodium. May need to decrease dose of Bumex. Renal function stable, BUN 33 and cr 1.9. Na still high but also stable at 150. Hgb down to 7.4 but overall asymptomatic - monitor. Repeat labs now and in AM. TSH trending down after initiation of Synthroid back in September,.03 Encouraged PT/OT. Unable to use blood thinners due to concern for slow GI blood losses. Continue SCDs. Continue Zosyn for osteomyelitis of the right 1st metatarsal through December 22, 2017. Wound care per Dr. Lopez/wound team.
--- NOTE | 2017-12-09 10:24 | Infectious Disease Consult ---
Infectious Disease Consult Date of Consultation: 12/09/17 Requesting Physician: Vishnu Casiano Reason for Consultation: antibiotic recs History of Present Illness: Ms. Ball is an 82-year-old woman who is known to me from previous admissions and the wound clinic. She has had a diabetic foot wound on the right first metatarsal head itches been very chronic. In the past she's had a wound culture that grew MSSA and Proteus. She had a bone scan May 22 which showed abnormal uptake right first metatarsal head consistent with osteomyelitis. She underwent bone biopsy right first metatarsal head June 05 which was negative for osteomyelitis. She has been receiving chemotherapy for her esophageal cancer and I have had her on oral cephalexin for several months. When I last saw her on September 25, her wound was noted to be healed. I stopped her cephalexin at that visit. She has been seeing cardiology recently for her peripheral vascular disease. She underwent angiogram on October 07 which showed some vascular disease in her lower extremities. On October 31 she underwent right SFA atherectomy and percutaneous angioplasty by Dr. Mcghee at [facility]. She was noted to be anemic and so was given 1 unit of packed red blood cells prior to that procedure. She reports that the wound team saw her when she was at [facility] and did some work on a wound on the bottom of her right foot. I logged into the [facility] system to review records and I did not see any notes from the wound team. Her sister reports that she was discharged from [facility] on November 01 in the morning. By that evening she was in the emergency department here being evaluated for exhaustion. She was felt to have weakness, hypoglycemia and volume depletion. Hemoglobin was 11.1. Per [facility] records her hemoglobin was 8.0 on discharge. Her UA showed 30-50 white cells and 3+ bacteria. She was discharged home with the plan that her urine culture would be followed up on and treated if necessary. Her urine culture from November 01 grew out greater than 100,000 colonies of Escherichia coli that was resistant to ampicillin Cipro Levaquin and Bactrim. Chest x-ray on November 01 was unremarkable. Patient reports that she had increasing pain and redness and drainage from her right foot. Her sister states that she has not been able to get an appointment for her in the wound clinic here. The patient had what sounds like a syncopal episode at home and presented to the emergency department on 11/10/17. In the emergency room she was slightly tachypneic but otherwise her vitals were stable. Her hemoglobin was 7.2. In was 1.8 and BUN was 79. There was concern for GI bleeding. She is admitted to the ICU for further evaluation. She had a PICC line placed. Chest x-ray did not show any significant infiltrates. Blood cultures were negative. She was started empirically on vancomycin and Zosyn. UA obtained yesterday had only 3-5 white cells and 2+ bacteria and culture was not indicated. Her wound culture from her right foot has grown E. faecalis, Achromobacter, Corynebacterium, CoNS. She underwent EGD and was found to have an ulcer next to her esophageal cancer. Her antibiotics were narrowed to Zosyn alone on November 15. She had debridement of the right foot wound down to bone of the first metatarsal on November 15. Recommended treating her for osteomyelitis with IV antibiotics for 6 weeks which would go through December 22. She has been admitted to the swing bed unit. She tells me that she was given another unit of red blood cells last week. Medications Home Medications Medication Instructions Recorded Confirmed Type Carvedilol 12.5 mg PO BIDWM #0 07/25/16 11/28/17 History Insulin Aspart [NovoLOG] 1 unit SQ WB #0 07/25/16 11/28/17 History Albuterol Neb (0.083%) [Proventil 2.5 mg AEROSOL Q6HR PRN 02/27/17 11/28/17 History Neb (0.083%)] Mirtazapine [Remeron] 15 mg PO HS 02/27/17 11/28/17 History Lisinopril [Prinivil] 2.5 mg PO DAILY #30 tab 06/24/17 11/28/17 Rx Amlodipine [Norvasc] 2.5 mg PO DAILY 06/27/17 11/28/17 History Sucralfate [Carafate] 1 gm PO ACHS 06/27/17 11/28/17 History Ferrous Sulfate 324 mg PO WB 08/30/17 11/28/17 History Bumetanide Tab [Bumex 1 mg Tab] 1 mg PO BID 09/02/17 11/28/17 History Levothyroxine Tab [Synthroid] 25 mcg PO ACB #30 tab 09/02/17 11/28/17 Rx Acetaminophen [Tylenol] 500 mg PO Q6H PRN 11/01/17 11/28/17 History Amiodarone [Pacerone] 200 mg PO DAILY 11/01/17 11/28/17 History Ascorbic Acid 500 mg PO DAILY 11/01/17 11/28/17 History Aspirin [Adult Aspirin Regimen] 81 mg PO DAILY 11/01/17 11/28/17 History Atorvastatin [Lipitor] 40 mg PO HS 11/01/17 11/28/17 History LORazepam [Ativan] 0.5 mg PO DAILY PRN 11/01/17 11/28/17 History Insulin Aspart [NovoLOG] 4 unit SQ WL 11/10/17 11/28/17 History Insulin Aspart [NovoLOG] 4 unit SQ WS 11/10/17 11/28/17 History Dextrose 50% Vial [D50%W] 10 ml IV PRN PRN 11/28/17 11/28/17 History LORazepam [Ativan] 0.5 mg PO BID PRN 11/28/17 11/28/17 History Lactobacillus Acidophilus 2 cap PO BIDWM 11/28/17 11/28/17 History [Acidophilus Lactobacillus] Levemir 10 units SQ HS 11/28/17 11/28/17 History Pantoprazole Sodium [Protonix] 1 tab PO ACBID 11/28/17 11/28/17 History Potassium Chloride [K-DUR 20 mEq 1 tab PO WS 11/28/17 11/28/17 History Tablet] Allergies Allergy/AdvReac Type Severity Reaction Status Date / Time sulfamethoxazole Allergy Unknown hives Verified 11/28/17 15:24 trimethoprim Allergy Unknown HIVES Verified 11/28/17 15:24 niacin AdvReac Intermediate HIVES Verified 11/28/17 15:24 [facility] Patient Stated Medical History Hearing Loss Yes: RIGHT HEARING AID, DEAF IN LEFT EAR Cardiac Arrhythmia Yes: afib Congestive Heart Failure Yes Hypertension Yes Chronic Obstructive Pulmonary Yes: nebs txs. SOB with exertion. 2L home O2 at Disease (COPD) all times Sleep Apnea Yes Diabetes Mellitus Type 1 Yes Diabetes Mellitus Type 2 Yes Constipation Yes Gastroesophageal Reflux Yes: well controlled Disease Hx Incontinence Yes Hx Renal Disease No Hx Urinary Tract Infection Yes Osteoarthritis Yes Cellulitis Yes: foot MRSA Yes Sepsis Yes Other Yes: removal of PAC Rt chest Depression Yes Clinic Medical History (Last Reviewed 11/10/17 @ 17:35 by Jocelyn Lovell APRN) Diabetes (Chronic Medical) Heart disease (Chronic Medical) Neuropathy (Chronic Medical) Medical History Updates: Hearing loss. Atrial fib. Heart failure, preserved ejection fraction, EF 50%. PFO with qfol-de-aryiu shunt on EDUIN 2015. Moderate mitral regurg. Diverticulosis. MRSA. Hypertension. COPD, O2 at 2 L. Sleep apnea. Diabetes mellitus type 2. Constipation. GERD. Urinary incontinence. UTI. Chronic right lower foot wound. Sepsis. Esophageal cancer, Dr. Newman. Bone biopsy 06/05/2017, negative for osteomyelitis. Anemia with GI bleed August 2016. PAD. Aortic atherosclerosis. Pneumonia. 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 Chronic kidney disease with baseline creatinine approximately 1.3 Surgical History: Bilateral cataract extraction-2006. Appendectomy. Hysterectomy-2003. Cystoscopy 2008. Cardiac catheter-2008. EGD and diagnosis of esophageal cancer-2007. Port-A-Cath placement-2007. Port-A-Cath removal . Bilateral toes amputations. Right lower extremity bone biopsy 2017. 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 Status post permanent pacemaker. Status post right lower extremity arterial balloon 11/07/2017 Family History: Family History (Last Reviewed 06/20/17 @ 16:33 by Nikky Braun MD) Father CAD (coronary artery disease) Mother CAD (coronary artery disease) Sister Parkinsons disease Brother Asthma Family History Updates: Reviewed and without significant relevant data - Social History Smoking status: Former smoker second hand exposure: No Substance use type: does not use Alcohol intake: never Alcohol intake frequency: does not drink Housing: house Household members: family Current occupational status: retired, disabled Does patient use chewing tobacco?: No Current residence: Apartment/Private Home Review of Systems All systems PM: 10-point ROS was reviewed, no additional remarkable complaints except - Constitutional Constitutional: Absent: fever(s), headache(s) - Cardiovascular Cardiovascular: Absent: chest pain - Respiratory Respiratory: Absent: cough - Gastrointestinal Gastrointestinal: Present: diarrhea (4 times per day), nausea (mild). Absent: vomiting - Genitourinary Genitourinary: Absent: dysuria - Musculoskeletal Musculoskeletal: Present: deformity (R foot) - Integumentary/Breasts Integumentary: Present: rash (LLE) - Neurological Neurological: Absent: headache(s) Exam Vital Signs: Temperature 97.4 F 12/09/17 07:11 Pulse Rate 68 12/09/17 07:11 Respiratory Rate 18 12/09/17 07:11 Blood Pressure 153/63 H 12/09/17 07:11 Pulse Oximetry 90 12/09/17 07:11 Height/Weight/BMI: Height 1.63 m Weight 80.2 kg Body Mass Index 29.0 - Constitutional Present: no acute distress - Routine HEENT Exam Head: Present: normocephalic, atraumatic Eye: Present: EOMI, PERRL ENT: Present: mucous membranes moist, oropharynx clear - Routine Neck Exam Present: supple - Routine Respiratory Exam Present: CTA bilaterally Comments: On 2L O2 by NC - Routine Cardiovascular Exam Present: RRR - Routine Abdominal Exam Present: soft, normoactive bowel sounds, non distended, non tender - Routine Exam Comments: no orourke - Routine Extremities Exam Absent: cyanosis, clubbing, edema Comments: R foot has Charcot foot deformity. Has a wound over medial 1st MT head that appears clean. She also has a wound on R heel that is covered with eschar - Routine Skin Exam Comments: She has very dry, peeling skin and rash noted over L foot and L medial LE. No significant rash on R foot. - Routine Neurological Exam Present: alert, oriented X3, CN II-XII intact, normal speech. Absent: motor deficit - Routine Psychiatric Exam Present: normal affect, normal thought process Results - Labs CBC & Chem 7: 12/09/17 05:19 12/09/17 05:19 Microbiology Results: Microbiology 12/01/17 12:08 Urine, Voided (Cc/notcc) Urine Culture - Final No Growth After 2 Days Impression: Sepsis secondary to skin/soft tissue source Diabetic foot infection R foot with cellulitis and osteomyelitis. Wound culture 11/10/17 with Enterococcus, Achromobacter, and skin chad. S/p debridement down to bone of 1st MT on 11/15/17. PVD s/p R SFA atherectomy/[employer] 10/31/17 Recent syncopal episode anemia, macrocytic Diarrhea, suspect secondary to Zosyn (C. diff negative 11/12/17) s/p EGD 11/12 with ulcer near esophageal mass, biopsy showed adenocarcinoma H/o Diabetic foot wound R 1st MT head, wound culture with MSSA, and Proteus. Bone scan 05/22/17 with abnormal uptake R 1st MT head consistent with osteomyelitis. S/p bone biopsy R 1st MT head 06/05/17 which was negative for osteomyelitis. Wound was noted to be healed on 09/25/17 and her cephalexin was stopped. Recurrent esophageal cancer, on weekly chemotherapy per Dr. Newman. H/o sepsis/septicemia with Pantoea species 2016, s/p Port removal 02/28/17. DM II, with peripheral neuropathy CKD stage III. COPD-chronic oxygen use at 2 liters Chronic atrial fibrillation s/p pacemaker implantation Hypertension GERD Hyperlipidemia Obstructive sleep apnea History of anemia and GI bleed. Allergies to cipro and sulfa (rash). Rash on L foot and LLE Recommendation: Recommend treating her with IV antibiotics for 6 weeks for osteomyelitis R 1st MT. My records indicate she has an allergy to cipro, but this is not listed in the hospital chart. Continue Zosyn for now. I anticipate that she might need some time at rehab. She was started on Zosyn on 11/10, so 6 weeks would tentatively go through 12/22/17. For outpatient therapy, I'd recommend Invanz 1gm IV daily and Daptomycin 6mg/kg IV daily. Consider topical steroid cream for the rash on her L foot.
[2017-12-09] MEDS: INSULIN ASPART 100unit/ml INJECTION SQ PRN (11:27)
--- NOTE | 2017-12-09 14:17 | Progress Note ---
- Date 12/09/17 Subjective: Angela is more short of breath today and is having some mild conversational dyspnea. She states that the nurse told her there were crackles in her lungs. She is using the IS as directed. She is having some issues taking a deep breath. She has been working well with therapy and is going to start walking to the bathroom more. She states that her appetite is about the same and she's trying to eat at least half of her meals. Objective Vital signs: Temperature 97.4 F 12/09/17 07:11 Pulse Rate 62 12/09/17 12:00 Respiratory Rate 18 12/09/17 07:11 Blood Pressure 153/63 H 12/09/17 07:11 Pulse Oximetry 90 12/09/17 07:11 Height/Weight/BMI: Height 1.63 m Weight 80.2 kg Body Mass Index 29.0 - Constitutional Present: mild distress (mild conversational dyspnea), well nourished, well developed - Routine HEENT Exam Head: Present: normocephalic Eye: Present: PERRL. Absent: conjunctival icterus, scleral injection - Routine Respiratory Exam Present: decreased breath sounds (b/l bases), crackles (b/l lower lobes) - Routine Cardiovascular Exam Present: RRR, S1, S2 - Routine Abdominal Exam Present: soft, normoactive bowel sounds, non distended, non tender - Routine Extremities Exam Present: edema (trace RLE) - Routine Skin Exam Present: dry, warm Comments: right foot is dressed with gauze - Routine Neurological Exam Present: alert, oriented X3, CN II-XII intact, moving all extremities, normal speech - Routine Psychiatric Exam Present: normal affect, normal thought process, cooperative Results - Labs CBC & Chem 7: 12/09/17 05:19 12/09/17 05:19 Microbiology Results: Microbiology 12/01/17 12:08 Urine, Voided (Cc/notcc) Urine Culture - Final No Growth After 2 Days Assessment and Plan (1) Osteomyelitis of ankle or foot Current visit: No Status: Acute Assessment and Plan: Impression Osteomyelitis, right lower extremity wound. Diabetic foot ulcer Hypernatremia Anemia Esophageal cancer-chemotherapy, currently on hold Type II diabetes Peripheral artery disease Acute on chronic kidney disease. Congestive heart failure Atrial fibrillation. COPD-chronic oxygen use at 2 liters Hypothyroidism Plan 12/09/17-SWING status. Conversational dyspnea and decreased air movement with increased crackles to bases -- weight has been trending up. Will give Bumex 0.5 mg IV x1. Cont oral Bumex. Repeat CXR now. BUN 33, Cr 1.9 -- recheck in am. Hgb 8.1 - stable for pt. Increase Synthroid to 37.5 mcg. Continue Zosyn for osteomyelitis of the right 1st metatarsal through December 22, 2017. Wound care per Dr. Lopez/wound team. DVT Prophylaxis: SCD's GI Prophylaxis: Protonix Resuscitation Status: Do Not Resuscitate - Time spent with patient Time with patient PN: 25 minutes - Physician Narrative Physician: Vishnu Casiano MD Narrative: Date: 12/09/17 Time: 1943 Have independently interviewed and examined pt. Chart reviewed. Case discussed with my FLAT GRINDER OPERATOR. Care plan developed with my supervision; agree with above. Doing okay this evening. Worked well with therapy. Still notes some SOA-reports increased urine output post diuretic. Appetite stable. Adherent with CPAP. Lungs: decreased, scattered crackles. CV: regular MSE: awake alert appropriate Plan: Continue with Zosyn and wound care. Encourage therapy. Possible repeat additional diuretic tomorrow if breathing not improving. Hospital Course Summary Disclaimer: The visit summary below is not to be considered part of the above Progress Note. Hospital Course: 11/28/17 Admitted to Swing bed at [facility] [place] for continuation of IV antibiotics. 11/29/17 - Wound/Surgical note: HGB has been stable in the 7 range for a week. Continue treatment for esophageal ulceration associated with her esophageal cancer. Continue to monitor HGB. Grade 3 DFU with osteomyelitis right foot is slowly improving, showing new granulation at the perimeter and in the center. Continue the Aquacel Q3 days and prn, and ABX per Dr. Fernandez. Small ulceration medial met head area is now soft, no purulence. Re re-start the Aquacel in the area, Q3d and prn. Dry eschar wounds dorsum of toes and large unstageable dry eschar of heel will continue Betadine paint BID. Off load with foam boot. May use "surgical shoe" for short distance (like the distance to the bathroom) ambulation with PT, she will not be able to wear her regular shoe for any significant amount of walking.The surgical shoe can be put over the dressings, but that would at least get the joints and muscles moving a little. 11/29/17 Admitted yesterday to swing bed status under the care of Dr. Caraballo. Appreciate ongoing infectious disease consultation and recommendations by Dr. Afua Fernandez. Patient will continue to receive IV Zosyn for treatment of osteomyelitis of the right 1st metatarsal. Course will be complete through December 22, 2017. Lower extremity wound will continue to be followed by the wound care center and Dr. Lopez. Continue to follow routine labs periodically through her stay. She has been anemic during her acute visit, hemoglobin has been low, however, remained stable , today 7.2 Routine Bumex was placed on hold yesterday 11/28 given. Hypovolemia with elevated sodium of 151. Patient was given 1 liter of IV fluids, today sodium has improved to 145. Will monitor carefully, suspect patient well need to be placed back on Bumex in the near future for chronic diuresing. Monitor daily under weights and I/O Carefully Continue to monitor renal function carefully, creatinine today 1.5 11/30/17 Admitted yesterday to swing bed status under the care of Dr. Caraballo. Appreciate ongoing infectious disease consultation and recommendations by Dr. Afua Fernandez. Patient will continue to receive IV Zosyn for treatment of osteomyelitis of the right 1st metatarsal. Course will be complete through December 22, 2017. Lower extremity wound will continue to be followed by the wound care center and Dr. Lopez. Continue to follow routine labs periodically through her stay. She has been anemic during her acute visit, hemoglobin has been low, however, remained stable , today 7.2 Routine Bumex was placed on hold 11/28 given hypovolemia with elevated sodium. Monitor po intake on dysphagia diet. She is particularly having trouble with thickened liquids. 12/01/17 Overall, Angela appears to be doing well. She complains of urinary urgency. UA obtained revealed 50-200 WBC with 5-10 squamous epithelial cells, 1-3 transition epithelial cells and trace bacteria. Will hold off on additional antibiotic treatment until culture is available. She remains on IV Zosyn for treatment of osteomyelitis of the right 1st metatarsal. Course will be complete through December 22, 2017. Appreciate ongoing infectious disease consultation and recommendations by Dr. Afua Fernandez. Lower extremity wound will continue to be followed by the wound care center and Dr. Lopez. Weight slowly trending up. Routine Bumex was placed on hold 11/28 given hypovolemia. Continue to monitor oral intake on dysphagia diet. She is particularly having trouble with thickened liquids. Hypernatremia resolved with Bumex on hold. Anemia stable. Continue to monitor electrolytes closely. Blood sugars slightly elevated. Will increase breakfast NovoLog to 2 units and continue to monitor closely, adjusting as indicated. Continue to monitor I&O closely as well as daily weight. Will discuss restarting home Bumex with Dr. Caraballo given resolution of hypernatremia and increasing weight and blood pressure. Plan is for patient to remain on swing bed status through the course of her antibiotics. 12/02/17 UA was collected yesterday 12/01- Holding off tx until C/S resulted Requiring increased oxygen today to 4 liters Suspect she is intravascularly dry given Hypernatremia and elevated [employer] [place]. However weight trends up and she is not requiring more oxygen- suspect edema extravascularly. Will given D5W- at 75 ml/hr for gently hydration given decreased PO fluid intake. Will Give 1 unit of PRBC given anemia. Give a one time dose of IV Bumex this afternoon following transfusion. She was previously on Bumex BID however it was held 11/28 and resumed daily this morning. Continue on IV Zosyn for treatment of osteomyelitis of the right 1st metatarsal. Course will be complete through December 22, 2017. 12/03/17 UA was collected yesterday 12/01- C/S revels no growth after 1 day - No treatment Given increased wheezing will give additional dose of Bumex 1 mg IV this afternoon Oxygen demands are slightly up from baseline Continue to follow Hgb- 7.6 today Continue on IV Zosyn for treatment of osteomyelitis of the right 1st metatarsal. Course will be complete through December 22, 2017. 12/04/17 Extra Bumex given yesterday - No wheezing on exam today. Renal function has been worsening; currently at 2.1. Weight trending up. 12/05/17 Increased subjective SOA today; will repeat CXR. Cr 2.0. Na 150. 12/06/17 CXR reviewed - improvement noted. Down to 1L per NC. Renal function stable, BUN 33 and cr 1.9. Na still high but also stable at 150. Hgb down to 7.4 but overall asymptomatic - monitor. TSH trending down after initiation of Synthroid back in September,.03 12/07/17 CXR reviewed - improvement noted. At baseline 2 liters oxygen. On oral bumex. Renal function stable, BUN 33 and cr 1.9. Na still high but also stable at 150. Hgb down to 7.4 but overall asymptomatic - monitor. Repeat labs saturday. TSH trending down after initiation of Synthroid back in September,.03 Encouraged PT/OT. Continue Zosyn for osteomyelitis of the right 1st metatarsal through December 22, 2017. Wound care per Dr. Lopez/wound team. 12/08/17-SWING status. At baseline 2 liters oxygen. On oral bumex-repeat serum sodium. May need to decrease dose of Bumex. Renal function stable, BUN 33 and cr 1.9. Na still high but also stable at 150. Hgb down to 7.4 but overall asymptomatic - monitor. Repeat labs now and in AM. TSH trending down after initiation of Synthroid back in September,. Encouraged PT/OT. Unable to use blood thinners due to concern for slow GI blood losses. Continue SCDs. Continue Zosyn for osteomyelitis of the right 1st metatarsal through December 22, 2017. Wound care per Dr. Lopez/wound team. 12/09/17-SWING status. Conversational dyspnea and decreased air movement with increased crackles to bases -- weight has been trending up. Will give Bumex 0.5 mg IV x1. Cont oral Bumex. Repeat CXR now. BUN 33, Cr 1.9 -- recheck in am. Hgb 8.1 - stable for pt. Increase Synthroid to 37.5 mcg.
--- NOTE | 2017-12-09 19:50 | XRay Report ---
EXAM: XR chest 1V HISTORY: SOA COMPARISON: Prior examination dated 12/05/2017 FINDINGS: The lung cardoso are hypoventilated. The heart is enlarged. There is a stable left-sided dual-lead pacemaker in place. Again noted is calcification in the mitral valve annulus. There is been interval development of pulmonary vascular congestion and interstitial and alveolar edema. There are small bilateral pleural effusions. Subjacent atelectasis or infiltrate is seen at both lung bases. There is a stable right-sided PICC line in place. The bony thorax is stable IMPRESSION: 1. Cardiomegaly with moderate changes of congestive heart failure. 2. Small bilateral pleural effusions with subjacent atelectasis and/or infiltrate at the lung bases. 3. Stable right-sided PICC line. 4. Stable left-sided dual-lead pacemaker. .
[2017-12-09] MEDS: ATORVASTATIN 40 MG TABLET PO SCH (20:58)
[2017-12-09] MEDS: INSULIN DETEMIR 100unit/ml INJECTION SQ SCH (20:58)
[2017-12-09] MEDS: MIRTAZAPINE 15 MG TABLET PO SCH (20:58)
[2017-12-10] MEDS: PIPERACILLIN IV SCH ×4 (01:15→18:33)
[2017-12-10] MEDS: TAZOBACTAM IV SCH ×4 (01:15→18:33)
[2017-12-10] MEDS: D5W IV SCH ×4 (01:15→18:33)
[2017-12-10] MEDS: SUCRALFATE 1gm/10ml ORAL LIQUID PO SCH ×4 (07:27→22:12)
[2017-12-10] MEDS: LEVOTHYROXINE 25 MCG TABLET PO SCH (07:28)
[2017-12-10] MEDS: PANTOPRAZOLE 40 MG TABLET PO SCH ×2 (07:28→17:19)
[2017-12-10] MEDS: BUMETANIDE 1 MG TABLET PO SCH (08:09)
[2017-12-10] MEDS: CARVEDILOL 12.5 MG TABLET PO SCH ×2 (08:09→17:19)
[2017-12-10] MEDS: ASPIRIN 81 MG CHEWABLE TABLET PO SCH (08:09)
[2017-12-10] MEDS: FERROUS SULFATE 324 MG TABLET PO SCH (08:09)
[2017-12-10] MEDS: AMLODIPINE 2.5 MG TABLET PO SCH (08:09)
[2017-12-10] MEDS: ASCORBIC ACID 500 MG TABLET PO SCH (08:09)
[2017-12-10] MEDS: LISINOPRIL 2.5 MG TABLET PO SCH (08:09)
[2017-12-10] MEDS: ACETAMINOPHEN 500 MG TABLET PO PRN ×3 (08:09→22:11)
[2017-12-10] MEDS: AMIODARONE 200 MG TABLET PO SCH (08:09)
[2017-12-10] MEDS: LACTOBACILLUS (15B cfu) CAPSULE PO SCH ×2 (08:09→17:19)
[2017-12-10] MEDS: INSULIN ASPART 100unit/ml INJECTION SQ SCH ×3 (08:10→17:19)
--- NOTE | 2017-12-10 11:44 | Progress Note ---
- Date 12/10/17 Subjective: Angela states that she is feeling better today. She is not short of breath today. She has been up and walking in her room, which she feels when fairly well. She denies feeling dizzy or weak. She denies any chest pain. She states her appetite has been fair. She denies abdominal pain or GI complaints. She denies any symptoms of thrush. Overall, she is pleased with her progress. Objective Vital signs: Temperature 96.5 F L 12/10/17 07:48 Pulse Rate 77 12/10/17 08:00 Respiratory Rate 14 12/10/17 07:48 Blood Pressure 156/62 H 12/10/17 07:48 Pulse Oximetry 94 12/10/17 07:48 Height/Weight/BMI: Height 1.63 m Weight 80.2 kg Body Mass Index 29.0 - Constitutional Present: no acute distress, well nourished, well developed - Routine HEENT Exam Head: Present: normocephalic Eye: Present: PERRL. Absent: conjunctival icterus, scleral injection ENT: Present: mucous membranes moist - Routine Respiratory Exam Present: decreased breath sounds (bilateral bases), wheezes Comments: slightly tachypneic - Routine Cardiovascular Exam Present: RRR, S1, S2 - Routine Abdominal Exam Present: soft, normoactive bowel sounds, non distended, non tender - Routine Extremities Exam Present: no edema (left lower extremity) Comments: Right lower extremity with Kerlix dressing - Routine Skin Exam Present: dry, warm - Routine Neurological Exam Present: alert, oriented X3, CN II-XII intact, moving all extremities, vision grossly intact, hearing grossly intact, normal speech. Absent: sensory deficit , motor deficit, altered mental status, facial asymmetry - Routine Psychiatric Exam Present: normal affect, normal thought process, cooperative Results - Labs CBC & Chem 7: 12/09/17 05:19 12/10/17 04:32 Microbiology Results: Microbiology 12/01/17 12:08 Urine, Voided (Cc/notcc) Urine Culture - Final No Growth After 2 Days Assessment and Plan (1) Osteomyelitis of ankle or foot Current visit: No Status: Acute Assessment and Plan: Impression Osteomyelitis, right lower extremity wound. Diabetic foot ulcer Hypernatremia Anemia Esophageal cancer-chemotherapy, currently on hold Type II diabetes Peripheral artery disease Acute on chronic kidney disease. Congestive heart failure Atrial fibrillation. COPD-chronic oxygen use at 2 liters Hypothyroidism Plan 12/10/17-SWING status. Still slightly tachypneic; CXR personally reviewed showing failure with pleural eff. Will give add'l Bumex 0.5 mg IV x1 for diuresis. Monitor renal function/Na : Na stable at 148, BUN 31, Cr 2.0. Continue PT/OT. Continue Zosyn for osteomyelitis of the right 1st metatarsal tentatively through December 22, 2017. Per Dr. Fernandez, she'd recommend Invanz 1gm IV daily and Daptomycin 6mg/kg IV daily for outpt therapy. Wound care per Dr. Lopez/wound team. GI Prophylaxis: Protonix Resuscitation Status: Do Not Resuscitate - Time spent with patient Time with patient PN: 25 minutes - Physician Narrative Physician: Vishnu Casiano MD Narrative: Date: 12/10/17 Time: 2114 Have independently interviewed and examined pt. Chart reviewed. Case discussed with my BUSINESS TRANSFORMATION ANALYST. Care plan developed with my supervision; agree with above. Improving. Doing well with therapy-working hard and continuing to make slow gains. Pt encouraged with this. Breathing okay-still some congestion. No pain with breathing. Bowels stable. Lungs: decreased, scattered crackle. CV: regular AB: soft nt/nd MSE: awake alert appropriate Plan: Continue with supportive care. Clinically making improvements. Tolerating therapy. Lab stable. Zosyn and wound care continues. Hospital Course Summary Disclaimer: The visit summary below is not to be considered part of the above Progress Note. Hospital Course: 11/28/17 Admitted to Swing bed at [facility] [place] for continuation of IV antibiotics. 11/29/17 - Wound/Surgical note: HGB has been stable in the 7 range for a week. Continue treatment for esophageal ulceration associated with her esophageal cancer. Continue to monitor HGB. Grade 3 DFU with osteomyelitis right foot is slowly improving, showing new granulation at the perimeter and in the center. Continue the Aquacel Q3 days and prn, and ABX per Dr. Fernandez. Small ulceration medial met head area is now soft, no purulence. Re re-start the Aquacel in the area, Q3d and prn. Dry eschar wounds dorsum of toes and large unstageable dry eschar of heel will continue Betadine paint BID. Off load with foam boot. May use "surgical shoe" for short distance (like the distance to the bathroom) ambulation with PT, she will not be able to wear her regular shoe for any significant amount of walking.The surgical shoe can be put over the dressings, but that would at least get the joints and muscles moving a little. 11/29/17 Admitted yesterday to swing bed status under the care of Dr. Caraballo. Appreciate ongoing infectious disease consultation and recommendations by Dr. Afua Fernandez. Patient will continue to receive IV Zosyn for treatment of osteomyelitis of the right 1st metatarsal. Course will be complete through December 22, 2017. Lower extremity wound will continue to be followed by the wound care center and Dr. Lopez. Continue to follow routine labs periodically through her stay. She has been anemic during her acute visit, hemoglobin has been low, however, remained stable , today 7.2 Routine Bumex was placed on hold yesterday 11/28 given. Hypovolemia with elevated sodium of 151. Patient was given 1 liter of IV fluids, today sodium has improved to 145. Will monitor carefully, suspect patient well need to be placed back on Bumex in the near future for chronic diuresing. Monitor daily under weights and I/O Carefully Continue to monitor renal function carefully, creatinine today 1.5 11/30/17 Admitted yesterday to swing bed status under the care of Dr. Caraballo. Appreciate ongoing infectious disease consultation and recommendations by Dr. Afua Fernandez. Patient will continue to receive IV Zosyn for treatment of osteomyelitis of the right 1st metatarsal. Course will be complete through December 22, 2017. Lower extremity wound will continue to be followed by the wound care center and Dr. Lopez. Continue to follow routine labs periodically through her stay. She has been anemic during her acute visit, hemoglobin has been low, however, remained stable , today 7.2 Routine Bumex was placed on hold 11/28 given hypovolemia with elevated sodium. Monitor po intake on dysphagia diet. She is particularly having trouble with thickened liquids. 12/01/17 Overall, Angela appears to be doing well. She complains of urinary urgency. UA obtained revealed 50-200 WBC with 5-10 squamous epithelial cells, 1-3 transition epithelial cells and trace bacteria. Will hold off on additional antibiotic treatment until culture is available. She remains on IV Zosyn for treatment of osteomyelitis of the right 1st metatarsal. Course will be complete through December 22, 2017. Appreciate ongoing infectious disease consultation and recommendations by Dr. Afua Fernandez. Lower extremity wound will continue to be followed by the wound care center and Dr. Lopez. Weight slowly trending up. Routine Bumex was placed on hold 11/28 given hypovolemia. Continue to monitor oral intake on dysphagia diet. She is particularly having trouble with thickened liquids. Hypernatremia resolved with Bumex on hold. Anemia stable. Continue to monitor electrolytes closely. Blood sugars slightly elevated. Will increase breakfast NovoLog to 2 units and continue to monitor closely, adjusting as indicated. Continue to monitor I&O closely as well as daily weight. Will discuss restarting home Bumex with Dr. Caraballo given resolution of hypernatremia and increasing weight and blood pressure. Plan is for patient to remain on swing bed status through the course of her antibiotics. 12/02/17 UA was collected yesterday 12/01- Holding off tx until C/S resulted Requiring increased oxygen today to 4 liters Suspect she is intravascularly dry given Hypernatremia and elevated Comb [employer]. However weight trends up and she is not requiring more oxygen- suspect edema extravascularly. Will given D5W- at 75 ml/hr for gently hydration given decreased PO fluid intake. Will Give 1 unit of PRBC given anemia. Give a one time dose of IV Bumex this afternoon following transfusion. She was previously on Bumex BID however it was held 11/28 and resumed daily this morning. Continue on IV Zosyn for treatment of osteomyelitis of the right 1st metatarsal. Course will be complete through December 22, 2017. 12/03/17 UA was collected yesterday 12/01- C/S revels no growth after 1 day - No treatment Given increased wheezing will give additional dose of Bumex 1 mg IV this afternoon Oxygen demands are slightly up from baseline Continue to follow Hgb- 7.6 today Continue on IV Zosyn for treatment of osteomyelitis of the right 1st metatarsal. Course will be complete through December 22, 2017. 12/04/17 Extra Bumex given yesterday - No wheezing on exam today. Renal function has been worsening; currently at 2.1. Weight trending up. 12/05/17 Increased subjective SOA today; will repeat CXR. Cr 2.0. Na 150. 12/06/17 CXR reviewed - improvement noted. Down to 1L per NC. Renal function stable, BUN 33 and cr 1.9. Na still high but also stable at 150. Hgb down to 7.4 but overall asymptomatic - monitor. TSH trending down after initiation of Synthroid back in September, 6.03 12/07/17 CXR reviewed - improvement noted. At baseline 2 liters oxygen. On oral bumex. Renal function stable, BUN 33 and cr 1.9. Na still high but also stable at 150. Hgb down to 7.4 but overall asymptomatic - monitor. Repeat labs saturday. TSH trending down after initiation of Synthroid back in September,.03 Encouraged PT/OT. Continue Zosyn for osteomyelitis of the right 1st metatarsal through December 22, 2017. Wound care per Dr. Lopez/wound team. 12/08/17 At baseline 2 liters oxygen. On oral bumex-repeat serum sodium. May need to decrease dose of Bumex. Renal function stable, BUN 33 and cr 1.9. Na still high but also stable at 150. Hgb down to 7.4 but overall asymptomatic - monitor. Repeat labs now and in AM. TSH trending down after initiation of Synthroid back in September,.03 Encouraged PT/OT. Unable to use blood thinners due to concern for slow GI blood losses. Continue SCDs. Continue Zosyn for osteomyelitis of the right 1st metatarsal through December 22, 2017. Wound care per Dr. Lopez/wound team. 12/09/17 Conversational dyspnea and decreased air movement with increased crackles to bases -- weight has been trending up. Will give Bumex 0.5 mg IV x1. Cont oral Bumex. Repeat CXR now. BUN 33, Cr 1.9 -- recheck in am. Hgb 8.1 - stable for pt. Increase Synthroid to 37.5 mcg. 12/10/17 Still slightly tachypneic; CXR personally reviewed showing failure with pleural eff. Will give add'l Bumex 0.5 mg IV x1 for diuresis. Monitor renal function/Na : Na stable at 148, BUN 31, Cr 2.0.
[2017-12-10] MEDS: MIRTAZAPINE 15 MG TABLET PO SCH (22:11)
[2017-12-10] MEDS: ATORVASTATIN 40 MG TABLET PO SCH (22:11)
[2017-12-10] MEDS: INSULIN DETEMIR 100unit/ml INJECTION SQ SCH (22:12)
[2017-12-10] MEDS: INSULIN ASPART 100unit/ml INJECTION SQ PRN (22:13)
[2017-12-11] MEDS: TAZOBACTAM IV SCH ×4 (01:21→18:40)
[2017-12-11] MEDS: D5W IV SCH ×4 (01:21→18:40)
[2017-12-11] MEDS: PIPERACILLIN IV SCH ×4 (01:21→18:40)
[2017-12-11] MEDS: LEVOTHYROXINE 25 MCG TABLET PO SCH (06:11)
[2017-12-11] MEDS: PANTOPRAZOLE 40 MG TABLET PO SCH ×2 (06:11→17:32)
[2017-12-11] MEDS: SALINE FLUSH 10ml SYRINGE IVF PRN (06:12)
[2017-12-11] MEDS: SUCRALFATE 1gm/10ml ORAL LIQUID PO SCH ×4 (06:12→22:35)
[2017-12-11] MEDS: NS FLUSH BAG 500ml IV PRN (06:13)
[2017-12-11] MEDS: AMIODARONE 200 MG TABLET PO SCH (08:15)
[2017-12-11] MEDS: ASCORBIC ACID 500 MG TABLET PO SCH (08:15)
[2017-12-11] MEDS: FERROUS SULFATE 324 MG TABLET PO SCH (08:15)
[2017-12-11] MEDS: LISINOPRIL 2.5 MG TABLET PO SCH (08:16)
[2017-12-11] MEDS: CARVEDILOL 12.5 MG TABLET PO SCH ×2 (08:16→17:32)
[2017-12-11] MEDS: ASPIRIN 81 MG CHEWABLE TABLET PO SCH (08:16)
[2017-12-11] MEDS: LACTOBACILLUS (15B cfu) CAPSULE PO SCH ×2 (08:16→17:32)
[2017-12-11] MEDS: AMLODIPINE 2.5 MG TABLET PO SCH (08:16)
[2017-12-11] MEDS: INSULIN ASPART 100unit/ml INJECTION SQ SCH ×3 (08:16→17:32)
[2017-12-11] MEDS: BUMETANIDE 1 MG TABLET PO SCH (08:16)
--- NOTE | 2017-12-11 09:14 | ID Progress Note ---
Subjective Date: 12/11/17 Subjective: Ms. Ball reports that she's doing fairly well today. Reports beltran she still feels short of breath at times. Denies pain. Loose stools seem a little better. Denies fever or chills. Exam Vital Signs: Temperature 97.1 F 12/11/17 07:22 Pulse Rate 66 12/11/17 08:00 Respiratory Rate 18 12/11/17 07:22 Blood Pressure 151/59 H 12/11/17 07:22 Pulse Oximetry 94 12/11/17 07:22 Height/Weight/BMI: Height 1.63 m Weight 80 kg Body Mass Index 29.0 - Constitutional Present: no acute distress, well nourished, well developed - Routine HEENT Exam Head: Present: normocephalic, atraumatic Eye: Present: EOMI, PERRL ENT: Present: mucous membranes moist, oropharynx clear - Routine Neck Exam Present: supple - Routine Respiratory Exam Present: CTA bilaterally - Routine Cardiovascular Exam Present: RRR - Routine Abdominal Exam Present: soft, normoactive bowel sounds, non distended, non tender - Routine Extremities Exam Absent: cyanosis, clubbing, edema Comments: R foot wrapped - Routine Skin Exam Present: intact. Absent: cyanosis - Routine Neurological Exam Present: alert, oriented X3, CN II-XII intact, normal speech. Absent: motor deficit - Routine Psychiatric Exam Present: normal affect Results - Labs CBC & Chem 7: 12/11/17 05:39 12/11/17 05:38 Microbiology Results: Microbiology 12/01/17 12:08 Urine, Voided (Cc/notcc) Urine Culture - Final No Growth After 2 Days Impression: Sepsis secondary to skin/soft tissue source Diabetic foot infection R foot with cellulitis and osteomyelitis. Wound culture 11/10/17 with Enterococcus, Achromobacter, and skin chad. S/p debridement down to bone of 1st MT on 11/15/17. 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 diff negative 11/12/17) s/p EGD 11/12 with ulcer near esophageal mass, biopsy showed adenocarcinoma H/o Diabetic foot wound R 1st MT head, wound culture with MSSA, and Proteus. Bone scan 05/22/17 with abnormal uptake R 1st MT head consistent with osteomyelitis. S/p bone biopsy R 1st MT head 06/05/17 which was negative for osteomyelitis. Wound was noted to be healed on 09/25/17 and her cephalexin was stopped. Recurrent esophageal cancer, on weekly chemotherapy per Dr. Newman. H/o sepsis/septicemia with Pantoea species 2016, s/p Port removal 02/28/17. DM II, with peripheral neuropathy CKD stage III. COPD-chronic oxygen use at 2 liters Chronic atrial fibrillation s/p pacemaker implantation Hypertension GERD Hyperlipidemia Obstructive sleep apnea History of anemia and GI bleed. Allergies to cipro and sulfa (rash). Rash on L foot and LLE Recommendation: Recommend treating her with IV antibiotics for 6 weeks for osteomyelitis R 1st MT. My records indicate she has an allergy to cipro, but this is not listed in the hospital chart. Continue Zosyn for now. She was started on Zosyn on 11/10, so 6 weeks would tentatively go through 12/22/17. For outpatient therapy, I'd recommend Invanz 1gm IV daily and Daptomycin 6mg/kg IV daily.
[2017-12-11] MEDS: ACETAMINOPHEN 500 MG TABLET PO PRN ×2 (10:05→18:31)
--- NOTE | 2017-12-11 12:12 | Progress Note ---
- Date 12/11/17 Subjective: Angela is seen today on swing bed status. She is up in the chair reading a book. She reports having a mild headache however she did take Tylenol. Otherwise she is feeling good. She is happy that she is able ambulate to the bathroom more and she feels that she is getting stronger. Objective Vital signs: Temperature 97.1 F 12/11/17 07:22 Pulse Rate 66 12/11/17 08:00 Respiratory Rate 18 12/11/17 07:22 Blood Pressure 151/59 H 12/11/17 07:22 Pulse Oximetry 94 12/11/17 07:22 Height/Weight/BMI: Height 1.63 m Weight 80 kg Body Mass Index 29.0 - Constitutional Present: no acute distress, well nourished, well developed - Routine HEENT Exam Eye: Present: EOMI ENT: Present: mucous membranes moist, dentition normal - Routine Respiratory Exam Absent: wheezes Comments: Mild expiratory crackle right posterior - Routine Cardiovascular Exam Present: RRR, S1, S2. Absent: murmur - Routine Abdominal Exam Present: soft, normoactive bowel sounds, non distended. Absent: tenderness - Routine Back/Spine/Pelvis Exam Back/Spine: Present: full ROM - Routine Skin Exam Present: intact, dry, warm - Routine Neurological Exam Present: alert, oriented X3, CN II-XII intact - Routine Lymphatic Exam Lymphatic: Absent: adenopathy - Routine Psychiatric Exam Present: normal affect, cooperative Results - Labs CBC & Chem 7: 12/11/17 05:39 12/11/17 05:38 Microbiology Results: Microbiology 12/01/17 12:08 Urine, Voided (Cc/notcc) Urine Culture - Final No Growth After 2 Days Assessment and Plan (1) Osteomyelitis of ankle or foot Current visit: No Status: Acute Assessment and Plan: Impression Osteomyelitis, right lower extremity wound. Diabetic foot ulcer Hypernatremia Anemia Esophageal cancer-chemotherapy, currently on hold Type II diabetes Peripheral artery disease Acute on chronic kidney disease. Congestive heart failure Atrial fibrillation. COPD-chronic oxygen use at 2 liters Hypothyroidism Plan 12/11/17-SWING status. Continue with PO daily bumex. Continue PT/OT Continue Zosyn for osteomyelitis of the right 1st metatarsal tentatively through December 22, 2017. Per Dr. Fernandez, she'd recommend Invanz 1gm IV daily and Daptomycin 6mg/kg IV daily for outpt therapy. Wound care per Dr. Lopez/wound team. Overall medically stable DVT Prophylaxis: SCD's Resuscitation Status: Do Not Resuscitate - Time spent with patient Time with patient PN: 25 minutes - Physician Narrative Physician: Vishnu Casiano MD Narrative: Date: 12/11/17 Time: 2042 Have independently interviewed and examined pt. Chart reviewed. Case discussed with my WEED COOKING OPERATOR. Care plan developed with my supervision; agree with above. Doing well today. Did well with therapy-PT worries she is walking farther than Dr Lopez would like; plans balance exercises tomorrow. Breathing okay this evening-has increase SOA earlier. Appetite fair. Lungs: decreased bilaterally, rare crackle. CV: regular AB: soft nt MSE: awake alert appropriate Plan: Continue with care and activities. Clinically improving. Hospital Course Summary Disclaimer: The visit summary below is not to be considered part of the above Progress Note. Hospital Course: 11/28/17 Admitted to Swing bed at [facility] [place] for continuation of IV antibiotics. 11/29/17 - Wound/Surgical note: HGB has been stable in the 7 range for a week. Continue treatment for esophageal ulceration associated with her esophageal cancer. Continue to monitor HGB. Grade 3 DFU with osteomyelitis right foot is slowly improving, showing new granulation at the perimeter and in the center. Continue the Aquacel Q3 days and prn, and ABX per Dr. Fernandez. Small ulceration medial met head area is now soft, no purulence. Re re-start the Aquacel in the area, Q3d and prn. Dry eschar wounds dorsum of toes and large unstageable dry eschar of heel will continue Betadine paint BID. Off load with foam boot. May use "surgical shoe" for short distance (like the distance to the bathroom) ambulation with PT, she will not be able to wear her regular shoe for any significant amount of walking.The surgical shoe can be put over the dressings, but that would at least get the joints and muscles moving a little. 11/29/17 Admitted yesterday to swing bed status under the care of Dr. Caraballo. Appreciate ongoing infectious disease consultation and recommendations by Dr. Afua Fernandez. Patient will continue to receive IV Zosyn for treatment of osteomyelitis of the right 1st metatarsal. Course will be complete through December 22, 2017. Lower extremity wound will continue to be followed by the wound care center and Dr. Lopez. Continue to follow routine labs periodically through her stay. She has been anemic during her acute visit, hemoglobin has been low, however, remained stable , today 7.2 Routine Bumex was placed on hold yesterday 11/28 given. Hypovolemia with elevated sodium of 151. Patient was given 1 liter of IV fluids, today sodium has improved to 145. Will monitor carefully, suspect patient well need to be placed back on Bumex in the near future for chronic diuresing. Monitor daily under weights and I/O Carefully Continue to monitor renal function carefully, creatinine today 1.5 11/30/17 Admitted yesterday to swing bed status under the care of Dr. Caraballo. Appreciate ongoing infectious disease consultation and recommendations by Dr. Afua Fernandez. Patient will continue to receive IV Zosyn for treatment of osteomyelitis of the right 1st metatarsal. Course will be complete through December 22, 2017. Lower extremity wound will continue to be followed by the wound care center and Dr. Lopez. Continue to follow routine labs periodically through her stay. She has been anemic during her acute visit, hemoglobin has been low, however, remained stable , today 7.2 Routine Bumex was placed on hold 11/28 given hypovolemia with elevated sodium. Monitor po intake on dysphagia diet. She is particularly having trouble with thickened liquids. 12/01/17 Overall, Angela appears to be doing well. She complains of urinary urgency. UA obtained revealed 50-200 WBC with 5-10 squamous epithelial cells, 1-3 transition epithelial cells and trace bacteria. Will hold off on additional antibiotic treatment until culture is available. She remains on IV Zosyn for treatment of osteomyelitis of the right 1st metatarsal. Course will be complete through December 22, 2017. Appreciate ongoing infectious disease consultation and recommendations by Dr. Afua Fernandez. Lower extremity wound will continue to be followed by the wound care center and Dr. Lopez. Weight slowly trending up. Routine Bumex was placed on hold 11/28 given hypovolemia. Continue to monitor oral intake on dysphagia diet. She is particularly having trouble with thickened liquids. Hypernatremia resolved with Bumex on hold. Anemia stable. Continue to monitor electrolytes closely. Blood sugars slightly elevated. Will increase breakfast NovoLog to 2 units and continue to monitor closely, adjusting as indicated. Continue to monitor I&O closely as well as daily weight. Will discuss restarting home Bumex with Dr. Caraballo given resolution of hypernatremia and increasing weight and blood pressure. Plan is for patient to remain on swing bed status through the course of her antibiotics. 12/02/17 UA was collected yesterday 12/01- Holding off tx until C/S resulted Requiring increased oxygen today to 4 liters Suspect she is intravascularly dry given Hypernatremia and elevated [employer] Fire[employer]. However weight trends up and she is not requiring more oxygen- suspect edema extravascularly. Will given D5W- at 75 ml/hr for gently hydration given decreased PO fluid intake. Will Give 1 unit of PRBC given anemia. Give a one time dose of IV Bumex this afternoon following transfusion. She was previously on Bumex BID however it was held 11/28 and resumed daily this morning. Continue on IV Zosyn for treatment of osteomyelitis of the right 1st metatarsal. Course will be complete through December 22, 2017. 12/03/17 UA was collected yesterday 12/01- C/S revels no growth after 1 day - No treatment Given increased wheezing will give additional dose of Bumex 1 mg IV this afternoon Oxygen demands are slightly up from baseline Continue to follow Hgb- 7.6 today Continue on IV Zosyn for treatment of osteomyelitis of the right 1st metatarsal. Course will be complete through December 22, 2017. 12/04/17 Extra Bumex given yesterday - No wheezing on exam today. Renal function has been worsening; currently at 2.1. Weight trending up. 12/05/17 Increased subjective SOA today; will repeat CXR. Cr 2.0. Na 150. 12/06/17 CXR reviewed - improvement noted. Down to 1L per NC. Renal function stable, BUN 33 and cr 1.9. Na still high but also stable at 150. Hgb down to 7.4 but overall asymptomatic - monitor. TSH trending down after initiation of Synthroid back in September,.03 12/07/17 CXR reviewed - improvement noted. At baseline 2 liters oxygen. On oral bumex. Renal function stable, BUN 33 and cr 1.9. Na still high but also stable at 150. Hgb down to 7.4 but overall asymptomatic - monitor. Repeat labs Saturday. TSH trending down after initiation of Synthroid back in September,.03 Encouraged PT/OT. Continue Zosyn for osteomyelitis of the right 1st metatarsal through December 22, 2017. Wound care per Dr. Lopez/wound team. 12/08/17 At baseline 2 liters oxygen. On oral Bumex-repeat serum sodium. May need to decrease dose of Bumex. Renal function stable, BUN 33 and cr 1.9. Na still high but also stable at 150. Hgb down to 7.4 but overall asymptomatic - monitor. Repeat labs now and in AM. TSH trending down after initiation of Synthroid back in September,.03 Encouraged PT/OT. Unable to use blood thinners due to concern for slow GI blood losses. Continue SCDs. Continue Zosyn for osteomyelitis of the right 1st metatarsal through December 22, 2017. Wound care per Dr. Lopez/wound team. 12/09/17 Conversational dyspnea and decreased air movement with increased crackles to bases -- weight has been trending up. Will give Bumex 0.5 mg IV x1. Cont oral Bumex. Repeat CXR now. BUN 33, Cr 1.9 -- recheck in am. Hgb 8.1 - stable for pt. Increase Synthroid to 37.5 mcg. 12/10/17 Still slightly tachypneic; CXR personally reviewed showing failure with pleural eff. Will give add'l Bumex 0.5 mg IV x1 for diuresis. Monitor renal function/Na : Na stable at 148, BUN 31, Cr 2.0. 12/11/17- Overall stable. Dyspnea improved, continue on scheduled PO Bumex.
[2017-12-11] MEDS: INSULIN DETEMIR 100unit/ml INJECTION SQ SCH (21:46)
[2017-12-11] MEDS: ATORVASTATIN 40 MG TABLET PO SCH (21:46)
[2017-12-11] MEDS: MIRTAZAPINE 15 MG TABLET PO SCH (21:46)
[2017-12-12] MEDS: TAZOBACTAM IV SCH ×4 (01:09→20:03)
[2017-12-12] MEDS: D5W IV SCH ×4 (01:09→20:03)
[2017-12-12] MEDS: PIPERACILLIN IV SCH ×4 (01:09→20:03)
[2017-12-12] MEDS: PANTOPRAZOLE 40 MG TABLET PO SCH ×2 (06:15→17:43)
[2017-12-12] MEDS: LEVOTHYROXINE 25 MCG TABLET PO SCH (06:15)
[2017-12-12] MEDS: SUCRALFATE 1gm/10ml ORAL LIQUID PO SCH ×4 (06:15→20:03)
[2017-12-12] MEDS: INSULIN ASPART 100unit/ml INJECTION SQ SCH ×3 (08:14→17:43)
[2017-12-12] MEDS: FERROUS SULFATE 324 MG TABLET PO SCH (09:00)
[2017-12-12] MEDS: ASPIRIN 81 MG CHEWABLE TABLET PO SCH (09:00)
[2017-12-12] MEDS: BUMETANIDE 1 MG TABLET PO SCH (09:01)
[2017-12-12] MEDS: AMIODARONE 200 MG TABLET PO SCH (09:01)
[2017-12-12] MEDS: LACTOBACILLUS (15B cfu) CAPSULE PO SCH ×2 (09:01→17:43)
[2017-12-12] MEDS: CARVEDILOL 12.5 MG TABLET PO SCH ×2 (09:01→17:43)
[2017-12-12] MEDS: LISINOPRIL 2.5 MG TABLET PO SCH (09:01)
[2017-12-12] MEDS: AMLODIPINE 2.5 MG TABLET PO SCH (09:01)
[2017-12-12] MEDS: ASCORBIC ACID 500 MG TABLET PO SCH (09:01)
[2017-12-12] MEDS: INSULIN ASPART 100unit/ml INJECTION SQ PRN (10:34)
[2017-12-12] MEDS: NS FLUSH BAG 500ml IV PRN (14:48)
--- NOTE | 2017-12-12 14:50 | Progress Note ---
- Date 12/12/17 Subjective: Angela is seen today in follow up. She is reading the paper and in no distress. She is having a or feeling more short of breath. Objective Vital signs: Temperature 96.4 F L 12/12/17 07:49 Pulse Rate 69 12/12/17 08:00 Respiratory Rate 28 H 12/12/17 07:49 Blood Pressure 143/54 H 12/12/17 07:49 Pulse Oximetry 77 L 12/12/17 11:04 Height/Weight/BMI: Height 1.63 m Weight 77.9 kg Body Mass Index 29.0 - Constitutional Present: well nourished, well developed - Routine HEENT Exam Eye: Present: EOMI ENT: Present: mucous membranes moist, dentition normal - Routine Respiratory Exam Present: CTA bilaterally. Absent: wheezes - Routine Cardiovascular Exam Present: RRR. Absent: murmur - Routine Abdominal Exam Present: soft, normoactive bowel sounds, non distended. Absent: tenderness - Routine Extremities Exam Present: normal capillary refill Comments: Dressing to right foot - Routine Skin Exam Present: intact, dry, warm - Routine Neurological Exam Present: alert, oriented X3, CN II-XII intact - Routine Lymphatic Exam Lymphatic: Absent: adenopathy - Routine Psychiatric Exam Present: normal affect Results - Labs CBC & Chem 7: 12/11/17 05:39 12/11/17 05:38 Microbiology Results: Microbiology 12/01/17 12:08 Urine, Voided (Cc/notcc) Urine Culture - Final No Growth After 2 Days Assessment and Plan (1) Osteomyelitis of ankle or foot Current visit: No Status: Acute Assessment and Plan: Impression Osteomyelitis, right lower extremity wound. Diabetic foot ulcer Hypernatremia Anemia Esophageal cancer-chemotherapy, currently on hold Type II diabetes Peripheral artery disease Acute on chronic kidney disease. Congestive heart failure Atrial fibrillation. COPD-chronic oxygen use at 2 liters Hypothyroidism Plan 12/12/17-SWING status. Continue with PO daily bumex. Continue PT/OT Continue Zosyn for osteomyelitis of the right 1st metatarsal tentatively through December 22, 2017. Per Dr. Fernandez, she'd recommend Invanz 1gm IV daily and Daptomycin 6mg/kg IV daily for outpt therapy. DVT Prophylaxis: SCD's Resuscitation Status: Do Not Resuscitate - Time spent with patient Time with patient PN: 25 minutes - Physician Narrative Physician: Vishnu Casiano MD Narrative: Date: 12/12/17 Time: 2100 Have independently interviewed and examined pt. Chart reviewed. Case discussed with my GYM ATTENDANT. Care plan developed with my supervision; agree with above. Doing okay. Working with therapy-did get more tired/fatigued this afternoon. Breathing stable-episodes of SOA. Not much congestion or cough. No pain with breathing. Lungs: decreased bilaterally, scattered crackle. CV: regular MSE: awake alert appropriate Plan: Continue with care. Will check lab in am. Did put lab in for Saturday. Encouraging that patient making gains with therapy, but still has significant gains to make. Hospital Course Summary Disclaimer: The visit summary below is not to be considered part of the above Progress Note. Hospital Course: 11/28/17 Admitted [place] [facility] [place]. 11/29/17 - Wound/Surgical note: HGB has been stable in the 7 range for a week. Continue treatment for esophageal ulceration associated with her esophageal cancer. Continue to monitor HGB. Grade 3 DFU with osteomyelitis right foot is slowly improving, showing new granulation at the perimeter and in the center. Continue the Aquacel Q3 days and prn, and ABX per Dr. Fernandez. Small ulceration medial met head area is now soft, no purulence. Re re-start the Aquacel in the area, Q3d and prn. Dry eschar wounds dorsum of toes and large unstageable dry eschar of heel will continue Betadine paint BID. Off load with foam boot. May use "surgical shoe" for short distance (like the distance to the bathroom) ambulation with PT, she will not be able to wear her regular shoe for any significant amount of walking.The surgical shoe can be put over the dressings, but that would at least get the joints and muscles moving a little. 11/29/17 Admitted yesterday to swing bed status under the care of Dr. Caraballo. Appreciate ongoing infectious disease consultation and recommendations by Dr. Afua Fernandez. Patient will continue to receive IV Zosyn for treatment of osteomyelitis of the right 1st metatarsal. Course will be complete through December 22, 2017. Lower extremity wound will continue to be followed by the wound care center and Dr. Lopez. Continue to follow routine labs periodically through her stay. She has been anemic during her acute visit, hemoglobin has been low, however, remained stable , today 7.2 Routine Bumex was placed on hold yesterday 11/28 given. Hypovolemia with elevated sodium of 151. Patient was given 1 liter of IV fluids, today sodium has improved to 145. Will monitor carefully, suspect patient well need to be placed back on Bumex in the near future for chronic diuresing. Monitor daily under weights and I/O Carefully Continue to monitor renal function carefully, creatinine today 1.5 11/30/17 Admitted yesterday to swing bed status under the care of Dr. Caraballo. Appreciate ongoing infectious disease consultation and recommendations by Dr. Afua Fernandez. Patient will continue to receive IV Zosyn for treatment of osteomyelitis of the right 1st metatarsal. Course will be complete through December 22, 2017. Lower extremity wound will continue to be followed by the wound care center and Dr. Lopez. Continue to follow routine labs periodically through her stay. She has been anemic during her acute visit, hemoglobin has been low, however, remained stable , today 7.2 Routine Bumex was placed on hold 11/28 given hypovolemia with elevated sodium. Monitor po intake on dysphagia diet. She is particularly having trouble with thickened liquids. 12/01/17 Overall, Angela appears to be doing well. She complains of urinary urgency. UA obtained revealed 50-200 WBC with 5-10 squamous epithelial cells, 1-3 transition epithelial cells and trace bacteria. Will hold off on additional antibiotic treatment until culture is available. She remains on IV Zosyn for treatment of osteomyelitis of the right 1st metatarsal. Course will be complete through December 22, 2017. Appreciate ongoing infectious disease consultation and recommendations by Dr. Afua Fernandez. Lower extremity wound will continue to be followed by the wound care center and Dr. Lopez. Weight slowly trending up. Routine Bumex was placed on hold 11/28 given hypovolemia. Continue to monitor oral intake on dysphagia diet. She is particularly having trouble with thickened liquids. Hypernatremia resolved with Bumex on hold. Anemia stable. Continue to monitor electrolytes closely. Blood sugars slightly elevated. Will increase breakfast NovoLog to 2 units and continue to monitor closely, adjusting as indicated. Continue to monitor I&O closely as well as daily weight. Will discuss restarting home Bumex with Dr. Caraballo given resolution of hypernatremia and increasing weight and blood pressure. Plan is for patient to remain on swing bed status through the course of her antibiotics. 12/02/17 UA was collected yesterday 12/01- Holding off tx until C/S resulted Requiring increased oxygen today to 4 liters Suspect she is intravascularly dry given Hypernatremia and elevated [employer]. However weight trends up and she is not requiring more oxygen- suspect edema extravascularly. Will given D5W- at 75 ml/hr for gently hydration given decreased PO fluid intake. Will Give 1 unit of PRBC given anemia. Give a one time dose of IV Bumex this afternoon following transfusion. She was previously on Bumex BID however it was held 11/28 and resumed daily this morning. Continue on IV Zosyn for treatment of osteomyelitis of the right 1st metatarsal. Course will be complete through December 22, 2017. 12/03/17 UA was collected yesterday 12/01- C/S revels no growth after 1 day - No treatment Given increased wheezing will give additional dose of Bumex 1 mg IV this afternoon Oxygen demands are slightly up from baseline Continue to follow Hgb- 7.6 today Continue on IV Zosyn for treatment of osteomyelitis of the right 1st metatarsal. Course will be complete through December 22, 2017. 12/04/17 Extra Bumex given yesterday - No wheezing on exam today. Renal function has been worsening; currently at 2.1. Weight trending up. 12/05/17 Increased subjective SOA today; will repeat CXR. Cr 2.0. Na 150. 12/06/17 CXR reviewed - improvement noted. Down to 1L per NC. Renal function stable, BUN 33 and cr 1.9. Na still high but also stable at 150. Hgb down to 7.4 but overall asymptomatic - monitor. TSH trending down after initiation of Synthroid back in September,.12/07/17 CXR reviewed - improvement noted. At baseline 2 liters oxygen. On oral bumex. Renal function stable, BUN 33 and cr 1.9. Na still high but also stable at 150. Hgb down to 7.4 but overall asymptomatic - monitor. Repeat labs Saturday. TSH trending down after initiation of Synthroid back in 11.03 Encouraged PT/OT. Continue Zosyn for osteomyelitis of the right 1st metatarsal through December 22, 2017. Wound care per Dr. Lopez/wound team. 12/08/17 At baseline 2 liters oxygen. On oral Bumex-repeat serum sodium. May need to decrease dose of Bumex. Renal function stable, BUN 33 and cr 1.9. Na still high but also stable at 150. Hgb down to 7.4 but overall asymptomatic - monitor. Repeat labs now and in AM. TSH trending down after initiation of Synthroid back in September,.03 Encouraged PT/OT. Unable to use blood thinners due to concern for slow GI blood losses. Continue SCDs. Continue Zosyn for osteomyelitis of the right 1st metatarsal through December 22, 2017. Wound care per Dr. Lopez/wound team. 12/09/17 Conversational dyspnea and decreased air movement with increased crackles to bases -- weight has been trending up. Will give Bumex 0.5 mg IV x1. Cont oral Bumex. Repeat CXR now. BUN 33, Cr 1.9 -- recheck in am. Hgb 8.1 - stable for pt. Increase Synthroid to 37.5 mcg. 12/10/17 Still slightly tachypneic; CXR personally reviewed showing failure with pleural eff. Will give add'l Bumex 0.5 mg IV x1 for diuresis. Monitor renal function/Na : Na stable at 148, BUN 31, Cr 2.0. 12/11/17- Overall stable. Dyspnea improved, continue on scheduled PO Bumex.
[2017-12-12] MEDS: ACETAMINOPHEN 500 MG TABLET PO PRN ×2 (16:21→22:10)
--- NOTE | 2017-12-12 17:01 | General Surgery Progress Note ---
Subjective Narrative: Patient is in the recliner this evening, doing well. Denies pain. Denies shortness of breath and chest pain. She has been working with physical therapy and states she feels that she is getting stronger. Been doing dressing changes every 3 days on the right foot and painting the heel and toes with Betadine. She is able to use a "surgical shoe". - Vital Signs Last Vital Signs Temp 96.4 F L 12/12/17 07:49 Pulse 69 12/12/17 08:00 Resp 28 H 12/12/17 07:49 BP 143/54 H 12/12/17 07:49 Pulse Ox 77 L 12/12/17 11:04 - Laboratory Result Diagrams: 12/11/17 05:39 12/11/17 05:38 - Abnormal Exam Skin: Right foot dressings removed a large ulceration on the medial aspect kidneys to granulate in, today there is some creamy exudate in the creases of the granulation. The smaller wound at the metatarsal head is dry no dressings on it today. Dorsum of toes with dry eschar. Eschar on the heel is also dry no bogginess or sign of drainage. The edges of the eschar are starting to "lift up " from the edges of the skin. - Normal Exam General: awake, alert, oriented Cardiovascular: regular rhythm, regular rate Respiratory: no labored breathing (but remains on oxygen and is on oxygen chronically at home.) Abdominal: soft, non-tender Psychiatric: normal affect Assessment and Plan (1) Osteomyelitis of ankle or foot Current Visit: No Status: Acute (2) Unstageable pressure ulcer of right heel Current Visit: Yes Status: Acute (3) Esophageal cancer Current Visit: Yes Status: Chronic Qualifiers: Malignant neoplasm of esophagus location: lower third Qualified Code(s): C15.5 - Malignant neoplasm of lower third of esophagus (4) Esophageal ulcer with bleeding Current Visit: Yes Status: Resolved (5) Acute anemia Current Visit: No Status: Chronic Plan: Hemoglobin dropped to 7.6 yesterday, no lab drawn today will be sure to have CBC tomorrow. Foot ulcer is continuing to heal. Like to continue with Aquasol to the larger wound as well as the very small wound at the metatarsal head and cover with Mepilex change every 3 days. Continue painting dorsum of toes and heel with Betadine paint on a twice a day basis. Today I then covered the foot with a sock. No need to Kerlix roll it and less is needed to keep the Mepilex in place. We'll continue to follow her periodically through her hospitalization and plan to see her in the wound clinic within 1-2 weeks after discharge. Hospital Course Summary Disclaimer: The visit summary below is not to be considered part of the above Progress Note. Hospital Course: 11/28/17 [place] [facility] [place]. 11/29/17 - Wound/Surgical note: HGB has been stable in the 7 range for a week. Continue treatment for esophageal ulceration associated with her esophageal cancer. Continue to monitor HGB. Grade 3 DFU with osteomyelitis right foot is slowly improving, showing new granulation at the perimeter and in the center. Continue the Aquacel Q3 days and prn, and ABX per Dr. Fernandez. Small ulceration medial met head area is now soft, no purulence. Re re-start the Aquacel in the area, Q3d and prn. Dry eschar wounds dorsum of toes and large unstageable dry eschar of heel will continue Betadine paint BID. Off load with foam boot. May use "surgical shoe" for short distance (like the distance to the bathroom) ambulation with PT, she will not be able to wear her regular shoe for any significant amount of walking.The surgical shoe can be put over the dressings, but that would at least get the joints and muscles moving a little. 11/29/17 Admitted yesterday to swing bed status under the care of Dr. Caraballo. Appreciate ongoing infectious disease consultation and recommendations by Dr. Afua Fernandez. Patient will continue to receive IV Zosyn for treatment of osteomyelitis of the right 1st metatarsal. Course will be complete through December 22, 2017. Lower extremity wound will continue to be followed by the wound care center and Dr. Lopez. Continue to follow routine labs periodically through her stay. She has been anemic during her acute visit, hemoglobin has been low, however, remained stable , today 7.2 Routine Bumex was placed on hold yesterday 11/28 given. Hypovolemia with elevated sodium of 151. Patient was given 1 liter of IV fluids, today sodium has improved to 145. Will monitor carefully, suspect patient well need to be placed back on Bumex in the near future for chronic diuresing. Monitor daily under weights and I/O Carefully Continue to monitor renal function carefully, creatinine today 1.5 11/30/17 Admitted yesterday to swing bed status under the care of Dr. Caraballo. Appreciate ongoing infectious disease consultation and recommendations by Dr. Afua Fernandez. Patient will continue to receive IV Zosyn for treatment of osteomyelitis of the right 1st metatarsal. Course will be complete through December 22, 2017. Lower extremity wound will continue to be followed by the wound care center and Dr. Lopez. Continue to follow routine labs periodically through her stay. She has been anemic during her acute visit, hemoglobin has been low, however, remained stable , today 7.2 Routine Bumex was placed on hold 11/28 given hypovolemia with elevated sodium. Monitor po intake on dysphagia diet. She is particularly having trouble with thickened liquids. 12/01/17 Overall, Angela appears to be doing well. She complains of urinary urgency. UA obtained revealed 50-200 WBC with 5-10 squamous epithelial cells, 1-3 transition epithelial cells and trace bacteria. Will hold off on additional antibiotic treatment until culture is available. She remains on IV Zosyn for treatment of osteomyelitis of the right 1st metatarsal. Course will be complete through December 22, 2017. Appreciate ongoing infectious disease consultation and recommendations by Dr. Afua Fernandez. Lower extremity wound will continue to be followed by the wound care center and Dr. Lopez. Weight slowly trending up. Routine Bumex was placed on hold 11/28 given hypovolemia. Continue to monitor oral intake on dysphagia diet. She is particularly having trouble with thickened liquids. Hypernatremia resolved with Bumex on hold. Anemia stable. Continue to monitor electrolytes closely. Blood sugars slightly elevated. Will increase breakfast NovoLog to 2 units and continue to monitor closely, adjusting as indicated. Continue to monitor I&O closely as well as daily weight. Will discuss restarting home Bumex with Dr. Caraballo given resolution of hypernatremia and increasing weight and blood pressure. Plan is for patient to remain on swing bed status through the course of her antibiotics. 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 However weight trends up and she is not requiring more oxygen- suspect edema extravascularly. Will given D5W- at 75 ml/hr for gently hydration given decreased PO fluid intake. Will Give 1 unit of PRBC given anemia. Give a one time dose of IV Bumex this afternoon following transfusion. She was previously on Bumex BID however it was held 11/28 and resumed daily this morning. Continue on IV Zosyn for treatment of osteomyelitis of the right 1st metatarsal. Course will be complete through December 22, 2017. 12/03/17 UA was collected yesterday 12/01- C/S revels no growth after 1 day - No treatment Given increased wheezing will give additional dose of Bumex 1 mg IV this afternoon Oxygen demands are slightly up from baseline Continue to follow Hgb- 7.6 today Continue on IV Zosyn for treatment of osteomyelitis of the right 1st metatarsal. Course will be complete through December 22, 2017. 12/04/17 Extra Bumex given yesterday - No wheezing on exam today. Renal function has been worsening; currently at 2.1. Weight trending up. 12/05/17 Increased subjective SOA today; will repeat CXR. Cr 2.0. Na 150. 12/06/17 CXR reviewed - improvement noted. Down to 1L per NC. Renal function stable, BUN 33 and cr 1.9. Na still high but also stable at 150. Hgb down to 7.4 but overall asymptomatic - monitor. TSH trending down after initiation of Synthroid back in September, 6.03 12/07/17 CXR reviewed - improvement noted. At baseline 2 liters oxygen. On oral bumex. Renal function stable, BUN 33 and cr 1.9. Na still high but also stable at 150. Hgb down to 7.4 but overall asymptomatic - monitor. Repeat labs Saturday. TSH trending down after initiation of Synthroid back in September,. Encouraged PT/OT. Continue Zosyn for osteomyelitis of the right 1st metatarsal through December 22, 2017. Wound care per Dr. Lopez/wound team. 12/08/17 At baseline 2 liters oxygen. On oral Bumex-repeat serum sodium. May need to decrease dose of Bumex. Renal function stable, BUN 33 and cr 1.9. Na still high but also stable at 150. Hgb down to 7.4 but overall asymptomatic - monitor. Repeat labs now and in AM. TSH trending down after initiation of Synthroid back in September, .03 Encouraged PT/OT. Unable to use blood thinners due to concern for slow GI blood losses. Continue SCDs. Continue Zosyn for osteomyelitis of the right 1st metatarsal through December 22, 2017. Wound care per Dr. Lopez/wound team. 12/09/17 Conversational dyspnea and decreased air movement with increased crackles to bases -- weight has been trending up. Will give Bumex 0.5 mg IV x1. Cont oral Bumex. Repeat CXR now. BUN 33, Cr 1.9 -- recheck in am. Hgb 8.1 - stable for pt. Increase Synthroid to 37.5 mcg. 12/10/17 Still slightly tachypneic; CXR personally reviewed showing failure with pleural eff. Will give add'l Bumex 0.5 mg IV x1 for diuresis. Monitor renal function/Na : Na stable at 148, BUN 31, Cr 2.0. 12/11/17- Overall stable. Dyspnea improved, continue on scheduled PO Bumex.
[2017-12-12] MEDS: INSULIN DETEMIR 100unit/ml INJECTION SQ SCH (20:03)
[2017-12-12] MEDS: MIRTAZAPINE 15 MG TABLET PO SCH (20:03)
[2017-12-12] MEDS: ATORVASTATIN 40 MG TABLET PO SCH (20:03)
[2017-12-12] MEDS: SALINE FLUSH 10ml SYRINGE IVF PRN (20:05)
[2017-12-13] MEDS: D5W IV SCH ×4 (01:02→18:19)
[2017-12-13] MEDS: TAZOBACTAM IV SCH ×4 (01:02→18:19)
[2017-12-13] MEDS: PIPERACILLIN IV SCH ×4 (01:02→18:19)
[2017-12-13] MEDS: SALINE FLUSH 10ml SYRINGE IVF PRN ×5 (01:02→18:19)
[2017-12-13] MEDS: SUCRALFATE 1gm/10ml ORAL LIQUID PO SCH ×4 (05:59→20:56)
[2017-12-13] MEDS: PANTOPRAZOLE 40 MG TABLET PO SCH ×2 (05:59→17:21)
[2017-12-13] MEDS: LEVOTHYROXINE 25 MCG TABLET PO SCH (06:04)
[2017-12-13] MEDS: LACTOBACILLUS (15B cfu) CAPSULE PO SCH ×2 (08:16→17:20)
[2017-12-13] MEDS: FERROUS SULFATE 324 MG TABLET PO SCH (08:16)
[2017-12-13] MEDS: LISINOPRIL 2.5 MG TABLET PO SCH (08:16)
[2017-12-13] MEDS: BUMETANIDE 1 MG TABLET PO SCH (08:16)
[2017-12-13] MEDS: CARVEDILOL 12.5 MG TABLET PO SCH ×2 (08:17→17:21)
[2017-12-13] MEDS: ASCORBIC ACID 500 MG TABLET PO SCH (08:17)
[2017-12-13] MEDS: INSULIN ASPART 100unit/ml INJECTION SQ SCH ×3 (08:17→17:21)
[2017-12-13] MEDS: AMIODARONE 200 MG TABLET PO SCH (08:17)
[2017-12-13] MEDS: ASPIRIN 81 MG CHEWABLE TABLET PO SCH (08:17)
[2017-12-13] MEDS: AMLODIPINE 2.5 MG TABLET PO SCH (08:17)
--- NOTE | 2017-12-13 08:57 | ID Progress Note ---
Subjective Date: 12/13/17 Subjective: Ms. Ball is doing well. She denies any fever, chills, N/V. Going to the bathroom and eating ok. No concerns. Exam Vital Signs: Temperature 97.4 F 12/13/17 07:43 Pulse Rate 62 12/13/17 07:59 Respiratory Rate 20 12/13/17 07:43 Blood Pressure 132/57 12/13/17 07:43 Pulse Oximetry 97 12/13/17 07:43 Height/Weight/BMI: Height 1.63 m Weight 77.9 kg Body Mass Index 29.0 - Constitutional Present: no acute distress, well nourished, well developed - Routine HEENT Exam Head: Present: normocephalic, atraumatic Eye: Present: EOMI, PERRL ENT: Present: mucous membranes moist Comments: dentures - Routine Neck Exam Present: supple - Routine Respiratory Exam Present: CTA bilaterally Comments: on O2 - Routine Cardiovascular Exam Present: RRR - Routine Abdominal Exam Present: soft, normoactive bowel sounds, non distended, non tender - Routine Exam Comments: no orourke - Routine Extremities Exam Absent: cyanosis, clubbing, edema Comments: wound R foot is covered with dressing. Small, erythematous lesion at tip of L great toe - Routine Skin Exam Present: rash (on L foot much improved) Comments: PICC site ok - Routine Neurological Exam Present: alert, oriented X3, CN II-XII intact, normal speech. Absent: motor deficit - Routine Psychiatric Exam Present: normal affect Results - Labs CBC & Chem 7: 12/13/17 04:52 12/13/17 04:52 Microbiology Results: Microbiology 12/01/17 12:08 Urine, Voided (Cc/notcc) Urine Culture - Final No Growth After 2 Days Impression: Sepsis secondary to skin/soft tissue source Diabetic foot infection R foot with cellulitis and osteomyelitis. Wound culture 11/10/17 with Enterococcus, Achromobacter, and skin chad. S/p debridement down to bone of 1st MT on 11/15/17. PVD s/p R SFA atherectomy/[employer] 10/31/17 Recent syncopal episode anemia, macrocytic Diarrhea, suspect secondary to Zosyn (C. diff negative 11/12/17) s/p EGD 11/12 with ulcer near esophageal mass, biopsy showed adenocarcinoma H/o Diabetic foot wound R 1st MT head, wound culture with MSSA, and Proteus. Bone scan 05/22/17 with abnormal uptake R 1st MT head consistent with osteomyelitis. S/p bone biopsy R 1st MT head 06/05/17 which was negative for osteomyelitis. Wound was noted to be healed on 09/25/17 and her cephalexin was stopped. Recurrent esophageal cancer, on weekly chemotherapy per Dr. Newman. H/o sepsis/septicemia with Pantoea species 2016, s/p Port removal 02/28/17. DM II, with peripheral neuropathy CKD stage III. COPD-chronic oxygen use at 2 liters Chronic atrial fibrillation s/p pacemaker implantation Hypertension GERD Hyperlipidemia Obstructive sleep apnea History of anemia and GI bleed. Allergies to cipro and sulfa (rash). Rash on L foot and LLE Recommendation: Recommend treating her with IV antibiotics for 6 weeks for osteomyelitis R 1st MT. My records indicate she has an allergy to cipro, but this is not listed in the hospital chart. Continue Zosyn for now. She was started on Zosyn on 11/10, so 6 weeks would tentatively go through 12/22/17. For outpatient therapy, I'd recommend Invanz 1gm IV daily and Daptomycin 6mg/kg IV daily.
--- NOTE | 2017-12-13 13:32 | Progress Note ---
- Date 12/13/17 Subjective: Angela is seen today in follow up swing bed status. She is doing well without any complaints. Denies feeling more short of breath or having pain. Right foot wound stable- dressing intact. Appetite remains good. Spirits are up and she looks forward to visiting with her sisters today. Objective Vital signs: Temperature 97.4 F 12/13/17 07:43 Pulse Rate 62 12/13/17 07:59 Respiratory Rate 20 12/13/17 07:43 Blood Pressure 132/57 12/13/17 07:43 Pulse Oximetry 97 12/13/17 07:43 Height/Weight/BMI: Height 1.63 m Weight 78.3 kg Body Mass Index 29.0 - Constitutional Present: no acute distress, well nourished, well developed - Routine HEENT Exam Eye: Present: EOMI ENT: Present: mucous membranes moist, dentition normal - Routine Respiratory Exam Present: CTA bilaterally. Absent: wheezes - Routine Cardiovascular Exam Present: RRR, S1, S2. Absent: murmur - Routine Abdominal Exam Present: soft, normoactive bowel sounds, non distended. Absent: tenderness - Routine Extremities Exam Present: edema (right foot- dressing intact) - Routine Skin Exam Present: dry, warm - Routine Neurological Exam Present: alert, oriented X3, CN II-XII intact - Routine Lymphatic Exam Lymphatic: Absent: adenopathy - Routine Psychiatric Exam Present: normal affect Results - Labs CBC & Chem 7: 12/13/17 04:52 12/13/17 04:52 Microbiology Results: Microbiology 12/01/17 12:08 Urine, Voided (Cc/notcc) Urine Culture - Final No Growth After 2 Days Assessment and Plan (1) Osteomyelitis of ankle or foot Current visit: No Status: Acute Assessment and Plan: Impression Osteomyelitis, right lower extremity wound. Diabetic foot ulcer Hypernatremia Anemia Esophageal cancer-chemotherapy, currently on hold Type II diabetes Peripheral artery disease Acute on chronic kidney disease. Congestive heart failure Atrial fibrillation. COPD-chronic oxygen use at 2 liters Hypothyroidism Plan 12/13/17-SWING status. Medically stable Continue with PO daily bumex. Continue PT/OT Continue Zosyn for osteomyelitis of the right 1st metatarsal tentatively through December 22, 2017. Per Dr. Fernandez, she'd recommend Invanz 1gm IV daily and Daptomycin 6mg/kg IV daily for outpt therapy. Recheck CBC and BMP saturday 12/16. DVT Prophylaxis: SCD's Resuscitation Status: Do Not Resuscitate - Time spent with patient Time with patient PN: 25 minutes - Physician Narrative Physician: Vishnu Casiano MD Narrative: Date: 12/13/17 Time: 2008 Have independently interviewed and examined pt. Chart reviewed. Case discussed with my RUBBER VULCANIZING MACHINE OPERATOR. Care plan developed with my supervision; agree with above. Doing well today. Worked well with therapy. Breathing okay. Appetite stable. No f/c. Lungs: decreased, scattered faint crackles CV: regular MSE: awake alert appropriate Plan: Continue Zosyn for osteomyelitis treatment. Encourage continued therapy to improve functional status. Clinically doing well. Hospital Course Summary Disclaimer: The visit summary below is not to be considered part of the above Progress Note. Hospital Course: 11/28/17 Admitted to Swing bed at [facility] [place] for continuation of IV antibiotics. 11/29/17 - Wound/Surgical note: HGB has been stable in the 7 range for a week. Continue treatment for esophageal ulceration associated with her esophageal cancer. Continue to monitor HGB. Grade 3 DFU with osteomyelitis right foot is slowly improving, showing new granulation at the perimeter and in the center. Continue the Aquacel Q3 days and prn, and ABX per Dr. Fernandez. Small ulceration medial met head area is now soft, no purulence. Re re-start the Aquacel in the area, Q3d and prn. Dry eschar wounds dorsum of toes and large unstageable dry eschar of heel will continue Betadine paint BID. Off load with foam boot. May use "surgical shoe" for short distance (like the distance to the bathroom) ambulation with PT, she will not be able to wear her regular shoe for any significant amount of walking.The surgical shoe can be put over the dressings, but that would at least get the joints and muscles moving a little. 11/29/17 Admitted yesterday to swing bed status under the care of Dr. Caraballo. Appreciate ongoing infectious disease consultation and recommendations by Dr. Afua Fernandez. Patient will continue to receive IV Zosyn for treatment of osteomyelitis of the right 1st metatarsal. Course will be complete through December 22, 2017. Lower extremity wound will continue to be followed by the wound care center and Dr. Lopez. Continue to follow routine labs periodically through her stay. She has been anemic during her acute visit, hemoglobin has been low, however, remained stable , today 7.2 Routine Bumex was placed on hold yesterday 11/28 given. Hypovolemia with elevated sodium of 151. Patient was given 1 liter of IV fluids, today sodium has improved to 145. Will monitor carefully, suspect patient well need to be placed back on Bumex in the near future for chronic diuresing. Monitor daily under weights and I/O Carefully Continue to monitor renal function carefully, creatinine today 1.5 11/30/17 Admitted yesterday to swing bed status under the care of Dr. Caraballo. Appreciate ongoing infectious disease consultation and recommendations by Dr. Afua Fernandez. Patient will continue to receive IV Zosyn for treatment of osteomyelitis of the right 1st metatarsal. Course will be complete through December 22, 2017. Lower extremity wound will continue to be followed by the wound care center and Dr. Lopez. Continue to follow routine labs periodically through her stay. She has been anemic during her acute visit, hemoglobin has been low, however, remained stable , today 7.2 Routine Bumex was placed on hold 11/28 given hypovolemia with elevated sodium. Monitor po intake on dysphagia diet. She is particularly having trouble with thickened liquids. 12/01/17 Overall, Angela appears to be doing well. She complains of urinary urgency. UA obtained revealed 50-200 WBC with 5-10 squamous epithelial cells, 1-3 transition epithelial cells and trace bacteria. Will hold off on additional antibiotic treatment until culture is available. She remains on IV Zosyn for treatment of osteomyelitis of the right 1st metatarsal. Course will be complete through December 22, 2017. Appreciate ongoing infectious disease consultation and recommendations by Dr. Afua Fernandez. Lower extremity wound will continue to be followed by the wound care center and Dr. Lopez. Weight slowly trending up. Routine Bumex was placed on hold 11/28 given hypovolemia. Continue to monitor oral intake on dysphagia diet. She is particularly having trouble with thickened liquids. Hypernatremia resolved with Bumex on hold. Anemia stable. Continue to monitor electrolytes closely. Blood sugars slightly elevated. Will increase breakfast NovoLog to 2 units and continue to monitor closely, adjusting as indicated. Continue to monitor I&O closely as well as daily weight. Will discuss restarting home Bumex with Dr. Caraballo given resolution of hypernatremia and increasing weight and blood pressure. Plan is for patient to remain on swing bed status through the course of her antibiotics. 12/02/17 UA was collected yesterday 12/01- Holding off tx until C/S resulted Requiring increased oxygen today to 4 liters Suspect she is intravascularly dry given Hypernatremia and elevated Bearingizer. However weight trends up and she is not requiring more oxygen- suspect edema extravascularly. Will given D5W- at 75 ml/hr for gently hydration given decreased PO fluid intake. Will Give 1 unit of PRBC given anemia. Give a one time dose of IV Bumex this afternoon following transfusion. She was previously on Bumex BID however it was held 11/28 and resumed daily this morning. Continue on IV Zosyn for treatment of osteomyelitis of the right 1st metatarsal. Course will be complete through December 22, 2017. 12/03/17 UA was collected yesterday 12/01- C/S revels no growth after 1 day - No treatment Given increased wheezing will give additional dose of Bumex 1 mg IV this afternoon Oxygen demands are slightly up from baseline Continue to follow Hgb- 7.6 today Continue on IV Zosyn for treatment of osteomyelitis of the right 1st metatarsal. Course will be complete through December 22, 2017. 12/04/17 Extra Bumex given yesterday - No wheezing on exam today. Renal function has been worsening; currently at 2.1. Weight trending up. 12/05/17 Increased subjective SOA today; will repeat CXR. Cr 2.0. Na 150. 12/06/17 CXR reviewed - improvement noted. Down to 1L per NC. Renal function stable, BUN 33 and cr 1.9. Na still high but also stable at 150. Hgb down to 7.4 but overall asymptomatic - monitor. TSH trending down after initiation of Synthroid back in September,.12/07/17 CXR reviewed - improvement noted. At baseline 2 liters oxygen. On oral bumex. Renal function stable, BUN 33 and cr 1.9. Na still high but also stable at 150. Hgb down to 7.4 but overall asymptomatic - monitor. Repeat labs Saturday. TSH trending down after initiation of Synthroid back in September,.03 Encouraged PT/OT. Continue Zosyn for osteomyelitis of the right 1st metatarsal through December 22, 2017. Wound care per Dr. Lopez/wound team. 12/08/17 At baseline 2 liters oxygen. On oral Bumex-repeat serum sodium. May need to decrease dose of Bumex. Renal function stable, BUN 33 and cr 1.9. Na still high but also stable at 150. Hgb down to 7.4 but overall asymptomatic - monitor. Repeat labs now and in AM. TSH trending down after initiation of Synthroid back in September,.03 Encouraged PT/OT. Unable to use blood thinners due to concern for slow GI blood losses. Continue SCDs. Continue Zosyn for osteomyelitis of the right 1st metatarsal through December 22, 2017. Wound care per Dr. Lopez/wound team. 12/09/17 Conversational dyspnea and decreased air movement with increased crackles to bases -- weight has been trending up. Will give Bumex 0.5 mg IV x1. Cont oral Bumex. Repeat CXR now. BUN 33, Cr 1.9 -- recheck in am. Hgb 8.1 - stable for pt. Increase Synthroid to 37.5 mcg. 12/10/17 Still slightly tachypneic; CXR personally reviewed showing failure with pleural eff. Will give add'l Bumex 0.5 mg IV x1 for diuresis. Monitor renal function/Na : Na stable at 148, BUN 31, Cr 2.0. 12/11/17- Overall stable. Dyspnea improved, continue on scheduled PO Bumex. 12/13/17- Medically stable.Continue with PO daily bumex. Continue PT/OT.Continue Zosyn for osteomyelitis of the right 1st metatarsal tentatively through December 22, 2017. Per Dr. Fernandez, she'd recommend Invanz 1gm IV daily and Daptomycin 6mg/kg IV daily for outpt therapy. Recheck CBC and BMP saturday 12/16.
[2017-12-13] MEDS: NS FLUSH BAG 500ml IV PRN (18:19)
[2017-12-13] MEDS: INSULIN DETEMIR 100unit/ml INJECTION SQ SCH (20:56)
[2017-12-13] MEDS: MIRTAZAPINE 15 MG TABLET PO SCH (20:56)
[2017-12-13] MEDS: ATORVASTATIN 40 MG TABLET PO SCH (20:56)
[2017-12-13] MEDS: INSULIN ASPART 100unit/ml INJECTION SQ PRN (20:57)
[2017-12-13] MEDS: ACETAMINOPHEN 500 MG TABLET PO PRN (22:44)
[2017-12-14] MEDS: PIPERACILLIN IV SCH ×4 (00:59→18:12)
[2017-12-14] MEDS: TAZOBACTAM IV SCH ×4 (00:59→18:12)
[2017-12-14] MEDS: D5W IV SCH ×4 (00:59→18:12)
[2017-12-14] MEDS: SUCRALFATE 1gm/10ml ORAL LIQUID PO SCH ×4 (05:38→21:11)
[2017-12-14] MEDS: LEVOTHYROXINE 25 MCG TABLET PO SCH (05:38)
[2017-12-14] MEDS: PANTOPRAZOLE 40 MG TABLET PO SCH ×2 (05:38→17:22)
[2017-12-14] MEDS: BUMETANIDE 1 MG TABLET PO SCH (08:19)
[2017-12-14] MEDS: LISINOPRIL 2.5 MG TABLET PO SCH (08:19)
[2017-12-14] MEDS: AMIODARONE 200 MG TABLET PO SCH (08:19)
[2017-12-14] MEDS: LACTOBACILLUS (15B cfu) CAPSULE PO SCH ×2 (08:19→17:21)
[2017-12-14] MEDS: CARVEDILOL 12.5 MG TABLET PO SCH ×2 (08:20→17:21)
[2017-12-14] MEDS: AMLODIPINE 2.5 MG TABLET PO SCH (08:20)
[2017-12-14] MEDS: ASPIRIN 81 MG CHEWABLE TABLET PO SCH (08:20)
[2017-12-14] MEDS: ASCORBIC ACID 500 MG TABLET PO SCH (08:20)
[2017-12-14] MEDS: FERROUS SULFATE 324 MG TABLET PO SCH (08:20)
[2017-12-14] MEDS: INSULIN ASPART 100unit/ml INJECTION SQ SCH ×3 (08:20→18:12)
[2017-12-14] MEDS: ACETAMINOPHEN 500 MG TABLET PO PRN ×2 (08:38→21:12)
[2017-12-14] MEDS: SALINE FLUSH 10ml SYRINGE IVF PRN ×2 (12:13→18:12)
[2017-12-14] MEDS: INSULIN ASPART 100unit/ml INJECTION SQ PRN (14:51)
--- NOTE | 2017-12-14 16:07 | Progress Note ---
- Date 12/14/17 Subjective: The patient was seen this afternoon in her room. She states she is feeling okay. She denies any pain in her foot. She is eating and drinking okay. She states that her BiPAP did not fit very well last night and made a lot of noise, but she spoke with RT about this and they will make sure it is fitting properly tonight. She currently feels like she is breathing normally on her chronic 2 L of oxygen. He feels cold but denies any fevers. Objective Vital signs: Temperature 96.7 F L 12/14/17 14:56 Pulse Rate 61 12/14/17 14:56 Respiratory Rate 20 12/14/17 14:56 Blood Pressure 128/53 12/14/17 14:56 Pulse Oximetry 100 12/14/17 14:56 Height/Weight/BMI: Height 1.63 m Weight 76.8 kg Body Mass Index 29.0 Comments: Afebrile, heart rate 61, respirations 20, blood pressure 128/53, O2 sat her percent on 2 L GEN-alert, oriented, no acute distress CV-regular rate and rhythm CHEST-clear to auscultation bilaterally ABD-soft, nontender with positive bowel sounds -no [place] EXT-she has a walking shoe on the right foot. This was removed and she does have a dressing on the medial right foot. She has some mild erythema of the distal lateral portion of her foot. She thinks this is chronic. NEURO-no focal deficits SKIN-warm and dry, no rashes Results - Labs CBC & Chem 7: 12/13/17 04:52 12/13/17 04:52 Microbiology Results: Microbiology 12/01/17 12:08 Urine, Voided (Cc/notcc) Urine Culture - Final No Growth After 2 Days Assessment and Plan (1) Osteomyelitis of ankle or foot Current visit: No Status: Acute Assessment and Plan: Impression Osteomyelitis, right lower extremity wound. Diabetic foot ulcer Hypernatremia Anemia Esophageal cancer-chemotherapy, currently on hold Type II diabetes Peripheral artery disease Acute on chronic kidney disease. Congestive heart failure Atrial fibrillation. COPD-chronic oxygen use at 2 liters Hypothyroidism Plan 12/14/17-SWING status. The patient is currently stable. Continue Zosyn through 12/22/[address] Fernandez , or if antibiotics needed outpatient can do Invanz 1 g IV daily and daptomycin 6 mg/kg IV daily through 12/22/2017 We'll check CBC, CMP, C-reactive protein, magnesium on the 16 Continue with current wound care Plan is for fpc at discharge. Continue BiPAP at night DVT Prophylaxis: SCD's GI Prophylaxis: Protonix Resuscitation Status: Do Not Resuscitate - Physician Narrative Narrative: Date: 12/14/17 Time: 1601 Hospital Course Summary Disclaimer: The visit summary below is not to be considered part of the above Progress Note. Hospital Course: 11/28/17 Admitted to Swing bed at [facility] [place] continuation of IV antibiotics. 11/29/17 - Wound/Surgical note: HGB has been stable in the 7 range for a week. Continue treatment for esophageal ulceration associated with her esophageal cancer. Continue to monitor HGB. Grade 3 DFU with osteomyelitis right foot is slowly improving, showing new granulation at the perimeter and in the center. Continue the Aquacel Q3 days and prn, and ABX per Dr. Fernandez. Small ulceration medial met head area is now soft, no purulence. Re re-start the Aquacel in the area, Q3d and prn. Dry eschar wounds dorsum of toes and large unstageable dry eschar of heel will continue Betadine paint BID. Off load with foam boot. May use "surgical shoe" for short distance (like the distance to the bathroom) ambulation with PT, she will not be able to wear her regular shoe for any significant amount of walking.The surgical shoe can be put over the dressings, but that would at least get the joints and muscles moving a little. 11/29/17 Admitted yesterday to swing bed status under the care of Dr. Caraballo. Appreciate ongoing infectious disease consultation and recommendations by Dr. Afua Fernandez. Patient will continue to receive IV Zosyn for treatment of osteomyelitis of the right 1st metatarsal. Course will be complete through December 22, 2017. Lower extremity wound will continue to be followed by the wound care center and Dr. Lopez. Continue to follow routine labs periodically through her stay. She has been anemic during her acute visit, hemoglobin has been low, however, remained stable , today 7.2 Routine Bumex was placed on hold yesterday 11/28 given. Hypovolemia with elevated sodium of 151. Patient was given 1 liter of IV fluids, today sodium has improved to 145. Will monitor carefully, suspect patient well need to be placed back on Bumex in the near future for chronic diuresing. Monitor daily under weights and I/O Carefully Continue to monitor renal function carefully, creatinine today 1.5 11/30/17 Admitted yesterday to swing bed status under the care of Dr. Caraballo. Appreciate ongoing infectious disease consultation and recommendations by Dr. Afua Fernandez. Patient will continue to receive IV Zosyn for treatment of osteomyelitis of the right 1st metatarsal. Course will be complete through December 22, 2017. Lower extremity wound will continue to be followed by the wound care center and Dr. Lopez. Continue to follow routine labs periodically through her stay. She has been anemic during her acute visit, hemoglobin has been low, however, remained stable , today 7.2 Routine Bumex was placed on hold 11/28 given hypovolemia with elevated sodium. Monitor po intake on dysphagia diet. She is particularly having trouble with thickened liquids. 12/01/17 Overall, Angela appears to be doing well. She complains of urinary urgency. UA obtained revealed 50-200 WBC with 5-10 squamous epithelial cells, 1-3 transition epithelial cells and trace bacteria. Will hold off on additional antibiotic treatment until culture is available. She remains on IV Zosyn for treatment of osteomyelitis of the right 1st metatarsal. Course will be complete through December 22, 2017. Appreciate ongoing infectious disease consultation and recommendations by Dr. Afua Fernandez. Lower extremity wound will continue to be followed by the wound care center and Dr. Lopez. Weight slowly trending up. Routine Bumex was placed on hold 11/28 given hypovolemia. Continue to monitor oral intake on dysphagia diet. She is particularly having trouble with thickened liquids. Hypernatremia resolved with Bumex on hold. Anemia stable. Continue to monitor electrolytes closely. Blood sugars slightly elevated. Will increase breakfast NovoLog to 2 units and continue to monitor closely, adjusting as indicated. Continue to monitor I&O closely as well as daily weight. Will discuss restarting home Bumex with Dr. Caraballo given resolution of hypernatremia and increasing weight and blood pressure. Plan is for patient to remain on swing bed status through the course of her antibiotics. 12/02/17 UA was collected yesterday 12/01- Holding off tx until C/S resulted Requiring increased oxygen today to 4 liters Suspect she is intravascularly dry given Hypernatremia and elevated [employer]. However weight trends up and she is not requiring more oxygen- suspect edema extravascularly. Will given D5W- at 75 ml/hr for gently hydration given decreased PO fluid intake. Will Give 1 unit of PRBC given anemia. Give a one time dose of IV Bumex this afternoon following transfusion. She was previously on Bumex BID however it was held 11/28 and resumed daily this morning. Continue on IV Zosyn for treatment of osteomyelitis of the right 1st metatarsal. Course will be complete through December 22, 2017. 12/03/17 UA was collected yesterday 12/01- C/S revels no growth after 1 day - No treatment Given increased wheezing will give additional dose of Bumex 1 mg IV this afternoon Oxygen demands are slightly up from baseline Continue to follow Hgb- 7.6 today Continue on IV Zosyn for treatment of osteomyelitis of the right 1st metatarsal. Course will be complete through December 22, 2017. 12/04/17 Extra Bumex given yesterday - No wheezing on exam today. Renal function has been worsening; currently at 2.1. Weight trending up. 12/05/17 Increased subjective SOA today; will repeat CXR. Cr 2.0. Na 150. 12/06/17 CXR reviewed - improvement noted. Down to 1L per NC. Renal function stable, BUN 33 and cr 1.9. Na still high but also stable at 150. Hgb down to 7.4 but overall asymptomatic - monitor. TSH trending down after initiation of Synthroid back in September,.03 12/07/17 CXR reviewed - improvement noted. At baseline 2 liters oxygen. On oral bumex. Renal function stable, BUN 33 and cr 1.9. Na still high but also stable at 150. Hgb down to 7.4 but overall asymptomatic - monitor. Repeat labs Saturday. TSH trending down after initiation of Synthroid back in September,. Encouraged PT/OT. Continue Zosyn for osteomyelitis of the right 1st metatarsal through December 22, 2017. Wound care per Dr. Lopez/wound team. 12/08/17 At baseline 2 liters oxygen. On oral Bumex-repeat serum sodium. May need to decrease dose of Bumex. Renal function stable, BUN 33 and cr 1.9. Na still high but also stable at 150. Hgb down to 7.4 but overall asymptomatic - monitor. Repeat labs now and in AM. TSH trending down after initiation of Synthroid back in September,.03 Encouraged PT/OT. Unable to use blood thinners due to concern for slow GI blood losses. Continue SCDs. Continue Zosyn for osteomyelitis of the right 1st metatarsal through December 22, 2017. Wound care per Dr. Lopez/wound team. 12/09/17 Conversational dyspnea and decreased air movement with increased crackles to bases -- weight has been trending up. Will give Bumex 0.5 mg IV x1. Cont oral Bumex. Repeat CXR now. BUN 33, Cr 1.9 -- recheck in am. Hgb 8.1 - stable for pt. Increase Synthroid to 37.5 mcg. 12/10/17 Still slightly tachypneic; CXR personally reviewed showing failure with pleural eff. Will give add'l Bumex 0.5 mg IV x1 for diuresis. Monitor renal function/Na : Na stable at 148, BUN 31, Cr 2.0. 12/11/17- Overall stable. Dyspnea improved, continue on scheduled PO Bumex. 12/13/17- Medically stable.Continue with PO daily bumex. Continue PT/OT.Continue Zosyn for osteomyelitis of the right 1st metatarsal tentatively through December 22, 2017. Per Dr. Fernandez, she'd recommend Invanz 1gm IV daily and Daptomycin 6mg/kg IV daily for outpt therapy. Recheck CBC and BMP saturday 12/16.
[2017-12-14] MEDS: ATORVASTATIN 40 MG TABLET PO SCH (21:11)
[2017-12-14] MEDS: MIRTAZAPINE 15 MG TABLET PO SCH (21:11)
[2017-12-14] MEDS: INSULIN DETEMIR 100unit/ml INJECTION SQ SCH (21:12)
[2017-12-15] MEDS: PIPERACILLIN IV SCH ×4 (01:24→19:12)
[2017-12-15] MEDS: D5W IV SCH ×4 (01:24→19:12)
[2017-12-15] MEDS: TAZOBACTAM IV SCH ×4 (01:24→19:12)
[2017-12-15] MEDS: PANTOPRAZOLE 40 MG TABLET PO SCH ×2 (06:39→16:53)
[2017-12-15] MEDS: SUCRALFATE 1gm/10ml ORAL LIQUID PO SCH ×4 (06:39→22:27)
[2017-12-15] MEDS: LEVOTHYROXINE 25 MCG TABLET PO SCH (06:39)
[2017-12-15] MEDS: NS FLUSH BAG 500ml IV PRN (06:48)
[2017-12-15] MEDS: FERROUS SULFATE 324 MG TABLET PO SCH (08:46)
[2017-12-15] MEDS: AMIODARONE 200 MG TABLET PO SCH (08:46)
[2017-12-15] MEDS: ASCORBIC ACID 500 MG TABLET PO SCH (08:47)
[2017-12-15] MEDS: ASPIRIN 81 MG CHEWABLE TABLET PO SCH (08:47)
[2017-12-15] MEDS: LACTOBACILLUS (15B cfu) CAPSULE PO SCH ×2 (08:55→16:54)
[2017-12-15] MEDS: INSULIN ASPART 100unit/ml INJECTION SQ SCH ×3 (08:56→17:13)
[2017-12-15] MEDS: CARVEDILOL 12.5 MG TABLET PO SCH ×2 (09:23→16:54)
[2017-12-15] MEDS: BUMETANIDE 1 MG TABLET PO SCH (09:24)
[2017-12-15] MEDS: LISINOPRIL 2.5 MG TABLET PO SCH (09:24)
[2017-12-15] MEDS: AMLODIPINE 2.5 MG TABLET PO SCH (09:25)
[2017-12-15] MEDS: INSULIN ASPART 100unit/ml INJECTION SQ PRN (11:51)
[2017-12-15] MEDS: ACETAMINOPHEN 500 MG TABLET PO PRN ×2 (11:57→22:24)
[2017-12-15] MEDS: ALTEPLASE (Cathflo*) 2mg INJECTION IV ONE ×2 (13:41→13:54)
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
[2017-12-15] MEDS: ATORVASTATIN 40 MG TABLET PO SCH (22:24)
[2017-12-15] MEDS: MIRTAZAPINE 15 MG TABLET PO SCH (22:27)
[2017-12-15] MEDS: INSULIN DETEMIR 100unit/ml INJECTION SQ SCH (22:27)
[2017-12-16] MEDS: D5W IV SCH ×4 (01:25→17:59)
[2017-12-16] MEDS: PIPERACILLIN IV SCH ×4 (01:25→17:59)
[2017-12-16] MEDS: TAZOBACTAM IV SCH ×4 (01:25→17:59)
[2017-12-16] MEDS: LEVOTHYROXINE 25 MCG TABLET PO SCH (06:05)
[2017-12-16] MEDS: PANTOPRAZOLE 40 MG TABLET PO SCH ×2 (06:06→17:59)
[2017-12-16] MEDS: SUCRALFATE 1gm/10ml ORAL LIQUID PO SCH ×4 (06:06→21:01)
[2017-12-16] MEDS: INSULIN ASPART 100unit/ml INJECTION SQ SCH ×3 (09:23→17:59)
[2017-12-16] MEDS: AMLODIPINE 2.5 MG TABLET PO SCH (09:24)
[2017-12-16] MEDS: LACTOBACILLUS (15B cfu) CAPSULE PO SCH ×2 (09:24→17:59)
[2017-12-16] MEDS: BUMETANIDE 1 MG TABLET PO SCH (09:24)
[2017-12-16] MEDS: ASCORBIC ACID 500 MG TABLET PO SCH (09:24)
[2017-12-16] MEDS: LISINOPRIL 2.5 MG TABLET PO SCH (09:24)
[2017-12-16] MEDS: AMIODARONE 200 MG TABLET PO SCH (09:24)
[2017-12-16] MEDS: ASPIRIN 81 MG CHEWABLE TABLET PO SCH (09:24)
[2017-12-16] MEDS: FERROUS SULFATE 324 MG TABLET PO SCH (09:25)
[2017-12-16] MEDS: CARVEDILOL 12.5 MG TABLET PO SCH ×2 (09:25→17:59)
[2017-12-16] MEDS: INSULIN ASPART 100unit/ml INJECTION SQ PRN (11:04)
[2017-12-16] MEDS: ACETAMINOPHEN 500 MG TABLET PO PRN ×2 (11:08→21:03)
--- NOTE | 2017-12-16 11:15 | XRay Report ---
Indication: right shoulder pain XR shoulder RT 2-3 views: Comparison: No prior Technique: Three-view exam Findings: Patient demonstrates degenerative changes about the shoulder joint gently prominent about the inferior glenohumeral joint where there is some heterotrophic bony change about the inferior humeral head region. No acute bony fractures were noted. Patient does show a PICC line now traversing the region. Impression: Degenerative changes particularly prominent in the glenohumeral joint. .
--- NOTE | 2017-12-16 11:25 | Orthopedic Consult Note ---
Orthopedic Consultation HPI - Consultation Info Consult Date: 12/16/17 Attending Physician: Amanda Carrillo MD - History of Present Illness Mrs. 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 She has a history of chronic right shoulder pain, which has increased in the past week. She reports an injury in 2004 where she fell going down the stairs and grabbed railing to catch herself which caused strain of this shoulder. Denies any new or recent injury. She has never had corticosteroid injection in this shoulder joint. She reports arthritis pain in hands as well which is similar to her shoulder pain. Review of Systems - Musculoskeletal Musculoskeletal: Present: as per HPI, limited range of motion, tenderness, joint pain PFS Patient Stated Medical History Hearing Loss Yes: RIGHT HEARING AID, DEAF IN LEFT EAR Cardiac Arrhythmia Yes: afib Congestive Heart Failure Yes Hypertension Yes Chronic Obstructive Pulmonary Yes: nebs txs. SOB with exertion. 2L home O2 at Disease (COPD) all times Sleep Apnea Yes Diabetes Mellitus Type 1 Yes Diabetes Mellitus Type 2 Yes Constipation Yes Gastroesophageal Reflux Yes: well controlled Disease Hx Incontinence Yes Hx Renal Disease No Hx Urinary Tract Infection Yes Osteoarthritis Yes Cellulitis Yes: foot MRSA Yes Sepsis Yes Other Yes: removal of PAC Rt chest Depression Yes Clinic Medical History (Last Reviewed 11/10/17 @ 17:35 by Jocelyn Lovell APRN) Diabetes (Chronic Medical) Heart disease (Chronic Medical) Neuropathy (Chronic Medical) Medical History Updates: Hearing loss. Atrial fib. Heart failure, preserved ejection fraction, EF 50%. PFO with [id number] shunt on EDUIN 2015. Moderate mitral regurg. Diverticulosis. MRSA. Hypertension. COPD, O2 at 2 L. Sleep apnea. Diabetes mellitus type 2. Constipation. GERD. Urinary incontinence. UTI. Chronic right lower foot wound. Sepsis. Esophageal cancer, Dr. Newman. Bone biopsy 06/05/2017, negative for osteomyelitis. Anemia with GI bleed August 2016. PAD. Aortic atherosclerosis. Pneumonia. 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 Chronic kidney disease with baseline creatinine approximately 1.3 Surgical History: Bilateral cataract extraction-2006. Appendectomy. Hysterectomy-2003. Cystoscopy 2008. Cardiac catheter-2008. EGD and diagnosis of esophageal cancer-2007. Port-A-Cath placement-2007. Port-A-Cath removal . Bilateral toes amputations. Right lower extremity bone biopsy 2017. 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 Status post permanent pacemaker. Status post right lower extremity arterial balloon 11/07/2017 Family History: Family History (Last Reviewed 06/20/17 @ 16:33 by Nikky Braun MD) Father CAD (coronary artery disease) Mother CAD (coronary artery disease) Sister Parkinsons disease Brother Asthma Family History Updates: Reviewed and without significant relevant data - Social History Smoking status: Former smoker second hand exposure: No Substance use type: does not use Alcohol intake: never Alcohol intake frequency: does not drink Housing: house Household members: family Current occupational status: retired, disabled Does patient use chewing tobacco?: No Current residence: Apartment/Private Home Medications Home Medications Medication Instructions Recorded Confirmed Type Carvedilol 12.5 mg PO BIDWM #0 07/25/16 11/28/17 History Insulin Aspart [NovoLOG] 1 unit SQ WB #0 07/25/16 11/28/17 History Albuterol Neb (0.083%) [Proventil 2.5 mg AEROSOL Q6HR PRN 02/27/17 11/28/17 History Neb (0.083%)] Mirtazapine [Remeron] 15 mg PO HS 02/27/17 11/28/17 History Lisinopril [Prinivil] 2.5 mg PO DAILY #30 tab 06/24/17 11/28/17 Rx Amlodipine [Norvasc] 2.5 mg PO DAILY 06/27/17 11/28/17 History Sucralfate [Carafate] 1 gm PO ACHS 06/27/17 11/28/17 History Ferrous Sulfate 324 mg PO WB 08/30/17 11/28/17 History Bumetanide Tab [Bumex 1 mg Tab] 1 mg PO BID 09/02/17 11/28/17 History Levothyroxine Tab [Synthroid] 25 mcg PO ACB #30 tab 09/02/17 11/28/17 Rx Acetaminophen [Tylenol] 500 mg PO Q6H PRN 11/01/17 11/28/17 History Amiodarone [Pacerone] 200 mg PO DAILY 11/01/17 11/28/17 History Ascorbic Acid 500 mg PO DAILY 11/01/17 11/28/17 History Aspirin [Adult Aspirin Regimen] 81 mg PO DAILY 11/01/17 11/28/17 History Atorvastatin [Lipitor] 40 mg PO HS 11/01/17 11/28/17 History LORazepam [Ativan] 0.5 mg PO DAILY PRN 11/01/17 11/28/17 History Insulin Aspart [NovoLOG] 4 unit SQ WL 11/10/17 11/28/17 History Insulin Aspart [NovoLOG] 4 unit SQ WS 11/10/17 11/28/17 History Dextrose 50% Vial [D50%W] 10 ml IV PRN PRN 11/28/17 11/28/17 History LORazepam [Ativan] 0.5 mg PO BID PRN 11/28/17 11/28/17 History Lactobacillus Acidophilus 2 cap PO BIDWM 11/28/17 11/28/17 History [Acidophilus Lactobacillus] Levemir 10 units SQ HS 11/28/17 11/28/17 History Pantoprazole Sodium [Protonix] 1 tab PO ACBID 11/28/17 11/28/17 History Potassium Chloride [K-DUR 20 mEq 1 tab PO WS 11/28/17 11/28/17 History Tablet] Allergies Allergy/AdvReac Type Severity Reaction Status Date / Time sulfamethoxazole Allergy Unknown hives Verified 11/28/17 15:24 trimethoprim Allergy Unknown HIVES Verified 11/28/17 15:24 niacin AdvReac Intermediate HIVES Verified 11/28/17 15:24 Exam - Constitutional Vital Signs: Temperature 96.8 F 12/16/17 07:15 Pulse Rate 75 12/16/17 08:00 Respiratory Rate 16 12/16/17 07:15 Blood Pressure 146/54 H 12/16/17 07:15 Pulse Oximetry 97 12/16/17 07:15 General: cooperative, well developed, well groomed, frail appearing Nutritional Appearance: well nourished Orientation: alert, oriented x3 - RUE General: no obvious deformity Skin: no rashes or lesions noted Elbow Range of Motion: within normal limits Wrist Range of Motion: within normal limits Range of Motion: Right shoulder ROM limited, 75 degree in extension and abduction, able to 120 approximately with assistance in extension. Neurological: no deficits, normal to light touch Vascular: radial pulse within normal limits Right Upper Extremity Comments: empty can test positive - Wound Right Foot Wound Drainage Amount: Small Wound Drainage Description: Purulent Wound Drainage Odor: No Odor Wound Bed Appearance: Yellow, Pale, Slough Right Heel Wound Drainage Amount: None Wound Drainage Odor: No Odor - Labs Result Diagrams: 12/16/17 03:41 12/16/17 03:41 Abnormal lab results 12/16/17 12/16/17 Range/Units 03:41 03:41 RBC 2.39 L (4.00-5.20) M/MM3 Hgb 7.4 L (12-16) GM/DL Hct 24.4 L (36-46) % MCV 102.1 H (80-100) UM3 MCHC 30.3 L (31-37) GM/DL RDW Std Deviation 62.7 H (36.9-50.2) [place] % (Auto) 11.3 H (0-9.0) % Eos % (Auto) 8.4 H (0-4) % Eos # (Auto) 0.6 H (0-0.5) T/MM3 Sodium 150 H (136-146) MEQ/L Chloride 116 H (98-107) MEQ/L BUN 32.0 H (7-17) MG/DL Creatinine 1.8 H (0.7-1.2) mg/dL Calculated Osmolality 295 H (261-280) MOSM/KG Albumin 3.0 L (3.5-5.0) g/dL Albumin/Globulin Ratio 0.9 L (1.1-2.2) RATIO H & H 11/29/17 12/02/17 12/02/17 Range/Units 03:55 04:06 17:44 Hgb 7.2 L 6.8 L 9.0 L D (12-16) GM/DL Hct 24.4 L 23.0 L (36-46) % 12/03/17 12/04/17 12/06/17 Range/Units 03:59 04:50 05:09 Hgb 7.6 L D 8.0 L 7.4 L (12-16) GM/DL Hct 25.1 L 26.5 L 24.5 L (36-46) % 12/08/17 12/09/17 12/11/17 Range/Units 15:29 05:19 05:39 Hgb 7.5 L 8.1 L 7.6 L (12-16) GM/DL Hct 24.8 L 26.6 L 25.1 L (36-46) % 12/13/17 12/16/17 Range/Units 04:52 03:41 Hgb 7.5 L 7.4 L (12-16) GM/DL Hct 24.8 L 24.4 L (36-46) % Impression and Recommendation (1) Right shoulder pain Current visit: Yes Status: Acute With exam pain due to chronic rotator arthropathy and osteoarthritis. PT to improve mobility and function. Due to current IV antibiotics, patient not a candidate for corticosteroid injection at this time. Could consider in the future. xrays reviewed- Osteoarthritis of glenohumeral joint. Thank you for the consultation. Hospital Course Summary Disclaimer: The visit summary below is not to be considered part of the above Progress Note. Hospital Course: 11/28/17 Admitted to Swing bed at [facility] for continuation of IV antibiotics. 11/29/17 - Wound/Surgical note: HGB has been stable in the 7 range for a week. Continue treatment for esophageal ulceration associated with her esophageal cancer. Continue to monitor HGB. Grade 3 DFU with osteomyelitis right foot is slowly improving, showing new granulation at the perimeter and in the center. Continue the Aquacel Q3 days and prn, and ABX per Dr. Fernandez. Small ulceration medial met head area is now soft, no purulence. Re re-start the Aquacel in the area, Q3d and prn. Dry eschar wounds dorsum of toes and large unstageable dry eschar of heel will continue Betadine paint BID. Off load with foam boot. May use "surgical shoe" for short distance (like the distance to the bathroom) ambulation with PT, she will not be able to wear her regular shoe for any significant amount of walking.The surgical shoe can be put over the dressings, but that would at least get the joints and muscles moving a little. 11/29/17 Admitted yesterday to swing bed status under the care of Dr. Caraballo. Appreciate ongoing infectious disease consultation and recommendations by Dr. Afua Fernandez. Patient will continue to receive IV Zosyn for treatment of osteomyelitis of the right 1st metatarsal. Course will be complete through December 22, 2017. Lower extremity wound will continue to be followed by the wound care center and Dr. Lopez. Continue to follow routine labs periodically through her stay. She has been anemic during her acute visit, hemoglobin has been low, however, remained stable , today 7.2 Routine Bumex was placed on hold yesterday 11/28 given. Hypovolemia with elevated sodium of 151. Patient was given 1 liter of IV fluids, today sodium has improved to 145. Will monitor carefully, suspect patient well need to be placed back on Bumex in the near future for chronic diuresing. Monitor daily under weights and I/O Carefully Continue to monitor renal function carefully, creatinine today 1.5 11/30/17 Admitted yesterday to swing bed status under the care of Dr. Caraballo. Appreciate ongoing infectious disease consultation and recommendations by Dr. Afua Fernandez. Patient will continue to receive IV Zosyn for treatment of osteomyelitis of the right 1st metatarsal. Course will be complete through December 22, 2017. Lower extremity wound will continue to be followed by the wound care center and Dr. Lopez. Continue to follow routine labs periodically through her stay. She has been anemic during her acute visit, hemoglobin has been low, however, remained stable , today 7.2 Routine Bumex was placed on hold 11/28 given hypovolemia with elevated sodium. Monitor po intake on dysphagia diet. She is particularly having trouble with thickened liquids. 12/01/17 Overall, Angela appears to be doing well. She complains of urinary urgency. UA obtained revealed 50-200 WBC with 5-10 squamous epithelial cells, 1-3 transition epithelial cells and trace bacteria. Will hold off on additional antibiotic treatment until culture is available. She remains on IV Zosyn for treatment of osteomyelitis of the right 1st metatarsal. Course will be complete through December 22, 2017. Appreciate ongoing infectious disease consultation and recommendations by Dr. Afua Fernandez. Lower extremity wound will continue to be followed by the wound care center and Dr. Lopez. Weight slowly trending up. Routine Bumex was placed on hold 11/28 given hypovolemia. Continue to monitor oral intake on dysphagia diet. She is particularly having trouble with thickened liquids. Hypernatremia resolved with Bumex on hold. Anemia stable. Continue to monitor electrolytes closely. Blood sugars slightly elevated. Will increase breakfast NovoLog to 2 units and continue to monitor closely, adjusting as indicated. Continue to monitor I&O closely as well as daily weight. Will discuss restarting home Bumex with Dr. Caraballo given resolution of hypernatremia and increasing weight and blood pressure. Plan is for patient to remain on swing bed status through the course of her antibiotics. 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 However weight trends up and she is not requiring more oxygen- suspect edema extravascularly. Will given D5W- at 75 ml/hr for gently hydration given decreased PO fluid intake. Will Give 1 unit of PRBC given anemia. Give a one time dose of IV Bumex this afternoon following transfusion. She was previously on Bumex BID however it was held 11/28 and resumed daily this morning. Continue on IV Zosyn for treatment of osteomyelitis of the right 1st metatarsal. Course will be complete through December 22, 2017. 12/03/17 UA was collected yesterday 12/01- C/S revels no growth after 1 day - No treatment Given increased wheezing will give additional dose of Bumex 1 mg IV this afternoon Oxygen demands are slightly up from baseline Continue to follow Hgb- 7.6 today Continue on IV Zosyn for treatment of osteomyelitis of the right 1st metatarsal. Course will be complete through December 22, 2017. 12/04/17 Extra Bumex given yesterday - No wheezing on exam today. Renal function has been worsening; currently at 2.1. Weight trending up. 12/05/17 Increased subjective SOA today; will repeat CXR. Cr 2.0. Na 150. 12/06/17 CXR reviewed - improvement noted. Down to 1L per NC. Renal function stable, BUN 33 and cr 1.9. Na still high but also stable at 150. Hgb down to 7.4 but overall asymptomatic - monitor. TSH trending down after initiation of Synthroid back in September,.12/07/17 CXR reviewed - improvement noted. At baseline 2 liters oxygen. On oral bumex. Renal function stable, BUN 33 and cr 1.9. Na still high but also stable at 150. Hgb down to 7.4 but overall asymptomatic - monitor. Repeat labs Saturday. TSH trending down after initiation of Synthroid back in September,.03 Encouraged PT/OT. Continue Zosyn for osteomyelitis of the right 1st metatarsal through December 22, 2017. Wound care per Dr. Lopez/wound team. 12/08/17 At baseline 2 liters oxygen. On oral Bumex-repeat serum sodium. May need to decrease dose of Bumex. Renal function stable, BUN 33 and cr 1.9. Na still high but also stable at 150. Hgb down to 7.4 but overall asymptomatic - monitor. Repeat labs now and in AM. TSH trending down after initiation of Synthroid back in September,.03 Encouraged PT/OT. Unable to use blood thinners due to concern for slow GI blood losses. Continue SCDs. Continue Zosyn for osteomyelitis of the right 1st metatarsal through December 22, 2017. Wound care per Dr. Lopez/wound team. 12/09/17 Conversational dyspnea and decreased air movement with increased crackles to bases -- weight has been trending up. Will give Bumex 0.5 mg IV x1. Cont oral Bumex. Repeat CXR now. BUN 33, Cr 1.9 -- recheck in am. Hgb 8.1 - stable for pt. Increase Synthroid to 37.5 mcg. 12/10/17 Still slightly tachypneic; CXR personally reviewed showing failure with pleural eff. Will give add'l Bumex 0.5 mg IV x1 for diuresis. Monitor renal function/Na : Na stable at 148, BUN 31, Cr 2.0. 12/11/17- Overall stable. Dyspnea improved, continue on scheduled PO Bumex. 12/13/17- Medically stable. Continue with PO daily bumex. Continue PT/OT.Continue Zosyn for osteomyelitis of the right 1st metatarsal tentatively through December 22, 2017. Per Dr. Fernandez, she'd recommend Invanz 1gm IV daily and Daptomycin 6mg/kg IV daily for outpt therapy.
--- NOTE | 2017-12-16 13:43 | Progress Note ---
- Date 12/16/17 Subjective: Angela is seen today while resting in the chair. No new concerns. Right shoulder pain that is more bothersome than previously. Pain related to a old injury. Breathing is at baseline on 2 liters. Appetite is good. Bowels moving routinely. Weight continues to trend down. Objective Vital signs: Temperature 96.8 F 12/16/17 07:15 Pulse Rate 75 12/16/17 08:00 Respiratory Rate 16 12/16/17 07:15 Blood Pressure 146/54 H 12/16/17 07:15 Pulse Oximetry 97 12/16/17 07:15 Height/Weight/BMI: Height 1.63 m Weight 75.5 kg Body Mass Index 29.0 - Constitutional Present: no acute distress, well nourished, well developed - Routine HEENT Exam Eye: Present: EOMI ENT: Present: mucous membranes moist, dentition normal - Routine Respiratory Exam Present: CTA bilaterally. Absent: wheezes - Routine Cardiovascular Exam Present: RRR, S1, S2. Absent: murmur - Routine Abdominal Exam Present: soft, normoactive bowel sounds, non distended. Absent: tenderness - Routine Skin Exam Present: intact, dry, warm - Routine Neurological Exam Present: alert, oriented X3, CN II-XII intact, moving all extremities - Routine Lymphatic Exam Lymphatic: Absent: adenopathy - Routine Psychiatric Exam Present: normal affect, cooperative Results - Labs CBC & Chem 7: 12/16/17 03:41 12/16/17 03:41 Microbiology Results: Microbiology 12/01/17 12:08 Urine, Voided (Cc/notcc) Urine Culture - Final No Growth After 2 Days Assessment and Plan (1) Osteomyelitis of ankle or foot Current visit: No Status: Acute Assessment and Plan: Impression Osteomyelitis, right lower extremity wound. Diabetic foot ulcer Hypernatremia Anemia Esophageal cancer-chemotherapy, currently on hold Type II diabetes Peripheral artery disease Acute on chronic kidney disease. Congestive heart failure Atrial fibrillation. COPD-chronic oxygen use at 2 liters Hypothyroidism Plan 12/16/17-SWING status. Continue Zosyn through 12/22/[address] Fernandez, or if antibiotics needed outpatient-Invanz 1 g IV daily and daptomycin 6 mg/kg IV daily through 2017 Consult with orthopedic team- Xray reveled degenerative changes of glenohumeral joint. Recommend PT/OT Continue with current wound care & BiPAP HS Spoke with CM regarding possible IRU for ongoing antibiotics and increased therapy for strengthening. 12/16/2017-8:20 PM-I examined the patient independently. I reviewed this chart, the patient history, and the COFFIN MAKER's/PA's documented findings as above. We discussed and formulated the assessment and plan as above with the additions below.-Dr. Carrillo Patient was seen this evening in her room accompanied by one of her sisters. She states she's feeling pretty well. Breathing is okay. She is eating okay. She bumped her second toe on her right foot and it caused some bleeding. Bleeding has now stopped. Her dressing was changed today. On exam her foot is covered with a dressing medially. There is some bleeding beneath the dressing. Her some erythema on the lateral foot, this has been present. Impression and plan Osteomyelitis of the right foot on Zosyn IRU screen initiated Hypernatremia with sodium up to 150. Decrease Bumex to 0.5 mg daily and decrease potassium to 10 mEq daily. Recheck basic metabolic profile . Anemia is stable. Repeat CBC - Physician Narrative Narrative: Date: 12/16/17 Time: 1336 Hospital Course Summary Disclaimer: The visit summary below is not to be considered part of the above Progress Note. Hospital Course: 11/28/17 [place] [facility] [place] antibiotics. 11/29/17 - Wound/Surgical note: HGB has been stable in the 7 range for a week. Continue treatment for esophageal ulceration associated with her esophageal cancer. Continue to monitor HGB. Grade 3 DFU with osteomyelitis right foot is slowly improving, showing new granulation at the perimeter and in the center. Continue the Aquacel Q3 days and prn, and ABX per Dr. Fernandez. Small ulceration medial met head area is now soft, no purulence. Re re-start the Aquacel in the area, Q3d and prn. Dry eschar wounds dorsum of toes and large unstageable dry eschar of heel will continue Betadine paint BID. Off load with foam boot. May use "surgical shoe" for short distance (like the distance to the bathroom) ambulation with PT, she will not be able to wear her regular shoe for any significant amount of walking.The surgical shoe can be put over the dressings, but that would at least get the joints and muscles moving a little. 11/29/17 Admitted yesterday to swing bed status under the care of Dr. Caraballo. Appreciate ongoing infectious disease consultation and recommendations by Dr. Afua Fernandez. Patient will continue to receive IV Zosyn for treatment of osteomyelitis of the right 1st metatarsal. Course will be complete through December 22, 2017. Lower extremity wound will continue to be followed by the wound care center and Dr. Lopez. Continue to follow routine labs periodically through her stay. She has been anemic during her acute visit, hemoglobin has been low, however, remained stable , today 7.2 Routine Bumex was placed on hold yesterday 11/28 given. Hypovolemia with elevated sodium of 151. Patient was given 1 liter of IV fluids, today sodium has improved to 145. Will monitor carefully, suspect patient well need to be placed back on Bumex in the near future for chronic diuresing. Monitor daily under weights and I/O Carefully Continue to monitor renal function carefully, creatinine today 1.5 11/30/17 Admitted yesterday to swing bed status under the care of Dr. Caraballo. Appreciate ongoing infectious disease consultation and recommendations by Dr. Afua Fernandez. Patient will continue to receive IV Zosyn for treatment of osteomyelitis of the right 1st metatarsal. Course will be complete through December 22, 2017. Lower extremity wound will continue to be followed by the wound care center and Dr. Lopez. Continue to follow routine labs periodically through her stay. She has been anemic during her acute visit, hemoglobin has been low, however, remained stable , today 7.2 Routine Bumex was placed on hold 11/28 given hypovolemia with elevated sodium. Monitor po intake on dysphagia diet. She is particularly having trouble with thickened liquids. 12/01/17 Overall, Angela appears to be doing well. She complains of urinary urgency. UA obtained revealed 50-200 WBC with 5-10 squamous epithelial cells, 1-3 transition epithelial cells and trace bacteria. Will hold off on additional antibiotic treatment until culture is available. She remains on IV Zosyn for treatment of osteomyelitis of the right 1st metatarsal. Course will be complete through December 22, 2017. Appreciate ongoing infectious disease consultation and recommendations by Dr. Afua Fernandez. Lower extremity wound will continue to be followed by the wound care center and Dr. Lopez. Weight slowly trending up. Routine Bumex was placed on hold 11/28 given hypovolemia. Continue to monitor oral intake on dysphagia diet. She is particularly having trouble with thickened liquids. Hypernatremia resolved with Bumex on hold. Anemia stable. Continue to monitor electrolytes closely. Blood sugars slightly elevated. Will increase breakfast NovoLog to 2 units and continue to monitor closely, adjusting as indicated. Continue to monitor I&O closely as well as daily weight. Will discuss restarting home Bumex with Dr. Caraballo given resolution of hypernatremia and increasing weight and blood pressure. Plan is for patient to remain on swing bed status through the course of her antibiotics. 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 However weight trends up and she is not requiring more oxygen- suspect edema extravascularly. Will given D5W- at 75 ml/hr for gently hydration given decreased PO fluid intake. Will Give 1 unit of PRBC given anemia. Give a one time dose of IV Bumex this afternoon following transfusion. She was previously on Bumex BID however it was held 11/28 and resumed daily this morning. Continue on IV Zosyn for treatment of osteomyelitis of the right 1st metatarsal. Course will be complete through December 22, 2017. 12/03/17 UA was collected yesterday 12/01- C/S revels no growth after 1 day - No treatment Given increased wheezing will give additional dose of Bumex 1 mg IV this afternoon Oxygen demands are slightly up from baseline Continue to follow Hgb- 7.6 today Continue on IV Zosyn for treatment of osteomyelitis of the right 1st metatarsal. Course will be complete through December 22, 2017. 12/04/17 Extra Bumex given yesterday - No wheezing on exam today. Renal function has been worsening; currently at 2.1. Weight trending up. 12/05/17 Increased subjective SOA today; will repeat CXR. Cr 2.0. Na 150. 12/06/17 CXR reviewed - improvement noted. Down to 1L per NC. Renal function stable, BUN 33 and cr 1.9. Na still high but also stable at 150. Hgb down to 7.4 but overall asymptomatic - monitor. TSH trending down after initiation of Synthroid back in September,.03 12/07/17 CXR reviewed - improvement noted. At baseline 2 liters oxygen. On oral bumex. Renal function stable, BUN 33 and cr 1.9. Na still high but also stable at 150. Hgb down to 7.4 but overall asymptomatic - monitor. Repeat labs Saturday. TSH trending down after initiation of Synthroid back in September,.03 Encouraged PT/OT. Continue Zosyn for osteomyelitis of the right 1st metatarsal through December 22, 2017. Wound care per Dr. Lopez/wound team. 12/08/17 At baseline 2 liters oxygen. On oral Bumex-repeat serum sodium. May need to decrease dose of Bumex. Renal function stable, BUN 33 and cr 1.9. Na still high but also stable at 150. Hgb down to 7.4 but overall asymptomatic - monitor. Repeat labs now and in AM. TSH trending down after initiation of Synthroid back in September,.03 Encouraged PT/OT. Unable to use blood thinners due to concern for slow GI blood losses. Continue SCDs. Continue Zosyn for osteomyelitis of the right 1st metatarsal through December 22, 2017. Wound care per Dr. Lopez/wound team. 12/09/17 Conversational dyspnea and decreased air movement with increased crackles to bases -- weight has been trending up. Will give Bumex 0.5 mg IV x1. Cont oral Bumex. Repeat CXR now. BUN 33, Cr 1.9 -- recheck in am. Hgb 8.1 - stable for pt. Increase Synthroid to 37.5 mcg. 12/10/17 Still slightly tachypneic; CXR personally reviewed showing failure with pleural eff. Will give add'l Bumex 0.5 mg IV x1 for diuresis. Monitor renal function/Na : Na stable at 148, BUN 31, Cr 2.0. 12/11/17- Overall stable. Dyspnea improved, continue on scheduled PO Bumex. 12/13/17- Medically stable. Continue with PO daily bumex. Continue PT/OT.Continue Zosyn for osteomyelitis of the right 1st metatarsal tentatively through December 22, 2017. Per Dr. Fernandez, she'd recommend Invanz 1gm IV daily and Daptomycin 6mg/kg IV daily for outpt therapy. Plan 12/16/17-SWING status. Continue Zosyn through 12/22/[address] Fernandez, or if antibiotics needed outpatient-Invanz 1 g IV daily and daptomycin 6 mg/kg IV daily through 2017 Consult with orthopedic team- Xray reveled degenerative changes of glenohumeral joint. Recommend PT/OT Continue with current wound care & BiPAP HS Spoke with CM regarding possible IRU for ongoing antibiotics and increased therapy for strengthening.
[2017-12-16] MEDS: NS FLUSH BAG 500ml IV PRN (14:18)
[2017-12-16] MEDS: SALINE FLUSH 10ml SYRINGE IV PRN (14:19)
[2017-12-16] MEDS: MIRTAZAPINE 15 MG TABLET PO SCH (21:01)
[2017-12-16] MEDS: ATORVASTATIN 40 MG TABLET PO SCH (21:01)
[2017-12-16] MEDS: INSULIN DETEMIR 100unit/ml INJECTION SQ SCH (21:01)
[2017-12-17] MEDS: PIPERACILLIN IV SCH ×4 (01:15→19:08)
[2017-12-17] MEDS: SALINE FLUSH 10ml SYRINGE IVF PRN ×2 (01:15→06:25)
[2017-12-17] MEDS: D5W IV SCH ×4 (01:15→19:08)
[2017-12-17] MEDS: TAZOBACTAM IV SCH ×4 (01:15→19:08)
[2017-12-17] MEDS: LEVOTHYROXINE 25 MCG TABLET PO SCH (06:24)
[2017-12-17] MEDS: PANTOPRAZOLE 40 MG TABLET PO SCH ×2 (06:24→18:11)
[2017-12-17] MEDS: SUCRALFATE 1gm/10ml ORAL LIQUID PO SCH ×4 (06:25→20:32)
[2017-12-17] MEDS: LISINOPRIL 2.5 MG TABLET PO SCH (08:10)
[2017-12-17] MEDS: BUMETANIDE 0.5 MG TABLET PO SCH (08:10)
[2017-12-17] MEDS: AMIODARONE 200 MG TABLET PO SCH (08:11)
[2017-12-17] MEDS: ASPIRIN 81 MG CHEWABLE TABLET PO SCH (08:11)
[2017-12-17] MEDS: AMLODIPINE 2.5 MG TABLET PO SCH (08:11)
[2017-12-17] MEDS: CARVEDILOL 12.5 MG TABLET PO SCH ×2 (08:11→18:11)
[2017-12-17] MEDS: INSULIN ASPART 100unit/ml INJECTION SQ SCH ×3 (08:11→18:10)
[2017-12-17] MEDS: ASCORBIC ACID 500 MG TABLET PO SCH (08:11)
[2017-12-17] MEDS: FERROUS SULFATE 324 MG TABLET PO SCH (08:11)
[2017-12-17] MEDS: LACTOBACILLUS (15B cfu) CAPSULE PO SCH ×2 (08:11→18:10)
--- NOTE | 2017-12-17 10:11 | Orthopedic Progress Note ---
Date: Date: 12/17/17 Time: 1008 Subjective/Severity of Illness: Mrs. Ball reports her right shoulder feels better this morning compared to yesterday. Pain improves with Tylenol prn. Has used topical NSAIDs in the past with pain relief as well. No other concerns, continues to work with PT Exam - Constitutional Vital Signs: Temperature 97.5 F 12/17/17 07:00 Pulse Rate 72 12/17/17 07:00 Respiratory Rate 20 12/17/17 07:00 Blood Pressure 142/54 H 12/17/17 07:00 Pulse Oximetry 99 12/17/17 07:00 General: cooperative, well developed, well groomed, frail appearing Nutritional Appearance: well nourished Orientation: alert, oriented x3 - RUE General: no obvious deformity Postoperative Appearance: extremity compartments are soft and nontender, neurovascullary intact to extremities Skin: no rashes or lesions noted Elbow Range of Motion: within normal limits Wrist Range of Motion: within normal limits Range of Motion: Limited extension/abduction to right shoulder. Vascular: radial pulse within normal limits, capillary refill <2 seconds - Respiratory Respiratory Exam: non-labored - Cardiac Cardiovascular exam: pedal pulses intact - Wound Right Foot Wound Drainage Amount: Small Wound Drainage Description: Purulent Wound Drainage Odor: No Odor Wound Bed Appearance: Yellow, Pale, Slough Right Heel Wound Drainage Amount: None Wound Drainage Odor: No Odor - Labs Result Diagrams: 12/17/17 03:54 12/16/17 03:41 Abnormal lab results 12/17/17 Range/Units 03:54 RBC 2.31 L (4.00-5.20) M/MM3 Hgb 7.2 L (12-16) GM/DL Hct 23.5 L (36-46) % MCV 101.7 H (80-100) UM3 MCHC 30.6 L (31-37) GM/DL RDW Std Deviation 62.2 H (36.9-50.2) FL Eosinophils % (Manual) 14.0 H (0-4) % Eosinophils # (Manual) 0.9 H (0-0.5) T/MM3 H & H 11/29/17 12/02/17 12/02/17 Range/Units 03:55 04:06 17:44 Hgb 7.2 L 6.8 L 9.0 L D (12-16) GM/DL Hct 24.4 L 23.0 L (36-46) % 12/03/17 12/04/17 12/06/17 Range/Units 03:59 04:50 05:09 Hgb 7.6 L D 8.0 L 7.4 L (12-16) GM/DL Hct 25.1 L 26.5 L 24.5 L (36-46) % 12/08/17 12/09/17 12/11/17 Range/Units 15:29 05:19 05:39 Hgb 7.5 L 8.1 L 7.6 L (12-16) GM/DL Hct 24.8 L 26.6 L 25.1 L (36-46) % 12/13/17 12/16/17 12/17/17 Range/Units 04:52 03:41 03:54 Hgb 7.5 L 7.4 L 7.2 L (12-16) GM/DL Hct 24.8 L 24.4 L 23.5 L (36-46) % Orthopedic Assessment and Plan (1) Osteoarthritis of right shoulder Status: Acute Assessment and Plan: Continue OT/PT to improve mobility Voltaren gel 1% 2 gm QID May consider changing to scheduled Tylenol Hospitalist following medically, thank you for consultation Hospital Course Summary Disclaimer: The visit summary below is not to be considered part of the above Progress Note. Hospital Course: 11/28/17 Admitted to Swing bed at [facility] [place] for continuation of IV antibiotics. 11/29/17 - Wound/Surgical note: HGB has been stable in the 7 range for a week. Continue treatment for esophageal ulceration associated with her esophageal cancer. Continue to monitor HGB. Grade 3 DFU with osteomyelitis right foot is slowly improving, showing new granulation at the perimeter and in the center. Continue the Aquacel Q3 days and prn, and ABX per Dr. Fernandez. Small ulceration medial met head area is now soft, no purulence. Re re-start the Aquacel in the area, Q3d and prn. Dry eschar wounds dorsum of toes and large unstageable dry eschar of heel will continue Betadine paint BID. Off load with foam boot. May use "surgical shoe" for short distance (like the distance to the bathroom) ambulation with PT, she will not be able to wear her regular shoe for any significant amount of walking.The surgical shoe can be put over the dressings, but that would at least get the joints and muscles moving a little. 11/29/17 Admitted yesterday to swing bed status under the care of Dr. Caraballo. Appreciate ongoing infectious disease consultation and recommendations by Dr. Afua Fernandez. Patient will continue to receive IV Zosyn for treatment of osteomyelitis of the right 1st metatarsal. Course will be complete through December 22, 2017. Lower extremity wound will continue to be followed by the wound care center and Dr. Lopez. Continue to follow routine labs periodically through her stay. She has been anemic during her acute visit, hemoglobin has been low, however, remained stable , today 7.2 Routine Bumex was placed on hold yesterday 11/28 given. Hypovolemia with elevated sodium of 151. Patient was given 1 liter of IV fluids, today sodium has improved to 145. Will monitor carefully, suspect patient well need to be placed back on Bumex in the near future for chronic diuresing. Monitor daily under weights and I/O Carefully Continue to monitor renal function carefully, creatinine today 1.5 11/30/17 Admitted yesterday to swing bed status under the care of Dr. Caraballo. Appreciate ongoing infectious disease consultation and recommendations by Dr. Afua Fernandez. Patient will continue to receive IV Zosyn for treatment of osteomyelitis of the right 1st metatarsal. Course will be complete through December 22, 2017. Lower extremity wound will continue to be followed by the wound care center and Dr. Lopez. Continue to follow routine labs periodically through her stay. She has been anemic during her acute visit, hemoglobin has been low, however, remained stable , today 7.2 Routine Bumex was placed on hold 11/28 given hypovolemia with elevated sodium. Monitor po intake on dysphagia diet. She is particularly having trouble with thickened liquids. 12/01/17 Overall, Angela appears to be doing well. She complains of urinary urgency. UA obtained revealed 50-200 WBC with 5-10 squamous epithelial cells, 1-3 transition epithelial cells and trace bacteria. Will hold off on additional antibiotic treatment until culture is available. She remains on IV Zosyn for treatment of osteomyelitis of the right 1st metatarsal. Course will be complete through December 22, 2017. Appreciate ongoing infectious disease consultation and recommendations by Dr. Afua Fernandez. Lower extremity wound will continue to be followed by the wound care center and Dr. Lopez. Weight slowly trending up. Routine Bumex was placed on hold 11/28 given hypovolemia. Continue to monitor oral intake on dysphagia diet. She is particularly having trouble with thickened liquids. Hypernatremia resolved with Bumex on hold. Anemia stable. Continue to monitor electrolytes closely. Blood sugars slightly elevated. Will increase breakfast NovoLog to 2 units and continue to monitor closely, adjusting as indicated. Continue to monitor I&O closely as well as daily weight. Will discuss restarting home Bumex with Dr. Caraballo given resolution of hypernatremia and increasing weight and blood pressure. Plan is for patient to remain on swing bed status through the course of her antibiotics. 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 However weight trends up and she is not requiring more oxygen- suspect edema extravascularly. Will given D5W- at 75 ml/hr for gently hydration given decreased PO fluid intake. Will Give 1 unit of PRBC given anemia. Give a one time dose of IV Bumex this afternoon following transfusion. She was previously on Bumex BID however it was held 11/28 and resumed daily this morning. Continue on IV Zosyn for treatment of osteomyelitis of the right 1st metatarsal. Course will be complete through December 22, 2017. 12/03/17 UA was collected yesterday 12/01- C/S revels no growth after 1 day - No treatment Given increased wheezing will give additional dose of Bumex 1 mg IV this afternoon Oxygen demands are slightly up from baseline Continue to follow Hgb- 7.6 today Continue on IV Zosyn for treatment of osteomyelitis of the right 1st metatarsal. Course will be complete through December 22, 2017. 12/04/17 Extra Bumex given yesterday - No wheezing on exam today. Renal function has been worsening; currently at 2.1. Weight trending up. 12/05/17 Increased subjective SOA today; will repeat CXR. Cr 2.0. Na 150. 12/06/17 CXR reviewed - improvement noted. Down to 1L per NC. Renal function stable, BUN 33 and cr 1.9. Na still high but also stable at 150. Hgb down to 7.4 but overall asymptomatic - monitor. TSH trending down after initiation of Synthroid back in September,.12/07/17 CXR reviewed - improvement noted. At baseline 2 liters oxygen. On oral bumex. Renal function stable, BUN 33 and cr 1.9. Na still high but also stable at 150. Hgb down to 7.4 but overall asymptomatic - monitor. Repeat labs Saturday. TSH trending down after initiation of Synthroid back in September,. Encouraged PT/OT. Continue Zosyn for osteomyelitis of the right 1st metatarsal through December 22, 2017. Wound care per Dr. Lopez/wound team. 12/08/17 At baseline 2 liters oxygen. On oral Bumex-repeat serum sodium. May need to decrease dose of Bumex. Renal function stable, BUN 33 and cr 1.9. Na still high but also stable at 150. Hgb down to 7.4 but overall asymptomatic - monitor. Repeat labs now and in AM. TSH trending down after initiation of Synthroid back in September,. Encouraged PT/OT. Unable to use blood thinners due to concern for slow GI blood losses. Continue SCDs. Continue Zosyn for osteomyelitis of the right 1st metatarsal through December 22, 2017. Wound care per Dr. Lopez/wound team. 12/09/17 Conversational dyspnea and decreased air movement with increased crackles to bases -- weight has been trending up. Will give Bumex 0.5 mg IV x1. Cont oral Bumex. Repeat CXR now. BUN 33, Cr 1.9 -- recheck in am. Hgb 8.1 - stable for pt. Increase Synthroid to 37.5 mcg. 12/10/17 Still slightly tachypneic; CXR personally reviewed showing failure with pleural eff. Will give add'l Bumex 0.5 mg IV x1 for diuresis. Monitor renal function/Na : Na stable at 148, BUN 31, Cr 2.0. 12/11/17- Overall stable. Dyspnea improved, continue on scheduled PO Bumex. 12/13/17- Medically stable. Continue with PO daily bumex. Continue PT/OT.Continue Zosyn for osteomyelitis of the right 1st metatarsal tentatively through December 22, 2017. Per Dr. Fernandez, she'd recommend Invanz 1gm IV daily and Daptomycin 6mg/kg IV daily for outpt therapy. Plan 12/16/17-SWING status. Continue Zosyn through 12/22/[address] Fernandez, or if antibiotics needed outpatient-Invanz 1 g IV daily and daptomycin 6 mg/kg IV daily through 2017 Consult with orthopedic team- Xray reveled degenerative changes of glenohumeral joint. Recommend PT/OT Continue with current wound care & BiPAP HS Spoke with CM regarding possible IRU for ongoing antibiotics and increased therapy for strengthening.
[2017-12-17] MEDS: DICLOFENAC 1% TOP GEL 100gm TP SCH ×2 (12:12→18:11)
--- NOTE | 2017-12-17 15:02 | Progress Note ---
- Date 12/17/17 Subjective: Angela is seen today in follow up. She is feeling good without complains of pain, shortness of breath or GI concerns. Started topical Voltaren gel to right shoulder of arthritis. Remains on baseline 2 liters of oxygen. Overall BGM remains well controlled. Objective Vital signs: Temperature 97.5 F 12/17/17 07:00 Pulse Rate 74 12/17/17 08:00 Respiratory Rate 20 12/17/17 07:00 Blood Pressure 142/54 H 12/17/17 07:00 Pulse Oximetry 99 12/17/17 07:00 Height/Weight/BMI: Height 1.63 m Weight 76.3 kg Body Mass Index 29.0 - Constitutional Present: no acute distress, well nourished, well developed - Routine HEENT Exam Eye: Present: EOMI ENT: Present: mucous membranes moist, dentition normal - Routine Respiratory Exam Present: CTA bilaterally, diminished air movement. Absent: wheezes - Routine Cardiovascular Exam Present: RRR, S1, S2. Absent: murmur - Routine Abdominal Exam Present: soft, normoactive bowel sounds, non distended. Absent: tenderness - Routine Skin Exam Present: intact, dry, warm - Routine Neurological Exam Present: alert, oriented X3, CN II-XII intact, moving all extremities - Routine Lymphatic Exam Lymphatic: Absent: adenopathy - Routine Psychiatric Exam Present: normal affect, normal thought process, cooperative Results - Labs CBC & Chem 7: 12/17/17 03:54 12/16/17 03:41 Microbiology Results: Microbiology 12/01/17 12:08 Urine, Voided (Cc/notcc) Urine Culture - Final No Growth After 2 Days Assessment and Plan (1) Osteomyelitis of ankle or foot Current visit: No Status: Acute Assessment and Plan: Impression Osteomyelitis, right lower extremity wound. Diabetic foot ulcer Hypernatremia Anemia Esophageal cancer-chemotherapy, currently on hold Type II diabetes Peripheral artery disease Acute on chronic kidney disease. Congestive heart failure Atrial fibrillation. COPD-chronic oxygen use at 2 liters Hypothyroidism Plan 12/17/17-SWING status. Continue Zosyn through 12/22/[address] Fernandez, or if antibiotics needed outpatient-Invanz 1 g IV daily and daptomycin 6 mg/kg IV daily through 2017 Topical Voltaren gel for pain of right shoulder gel Follow routine lab work, hemoglobin is stable at 7.2. Bumex was decreased to 0.5 mg daily as well as potassium to 10 mEq Check chemistry panel - 12/19 Continue to work with PT/OT for strengthening. She is worried about her balance. 12/17/2017-6 PM-I examined the patient independently. I reviewed this chart, the patient history, and the BLOOD OR BLOOD BANK TECHNICIAN's/PA's documented findings as above. We discussed and formulated the assessment and plan as above with the additions below.-Dr. Carrillo The patient is feeling well today. She is eating and drinking well. She denies shortness of breath. She asked about having a BiPAP at home. When she was at home she was just using O2 at 2 L per nasal cannula. She was using a CPAP until about 2 years ago. On exam she is alert and in no acute distress. Chest is clear to auscultation. Cardiovascular reveals a regular rate and rhythm. Abdomen is soft and nontender. Extremities reveal no edema of the left foot, right foot has a dressing on the medial portion of the foot with some bleeding underneath the dressing. She has some erythema to the lateral foot. Impression and plan Osteomyelitis-continue antibiotics as recommended COPD-prior to this hospitalization, she was just using 2 L of oxygen continuously day and night. Consider overnight oximetry on 2 L with ABG in the morning to see if she qualifies for a home BiPAP. Vital signs are stable today. - Physician Narrative Narrative: Date: 12/17/17 Time: 1458 Hospital Course Summary Disclaimer: The visit summary below is not to be considered part of the above Progress Note. Hospital Course: 11/28/17 Admitted to Swing bed [place] [facility] [place] antibiotics. 11/29/17 - Wound/Surgical note: HGB has been stable in the 7 range for a week. Continue treatment for esophageal ulceration associated with her esophageal cancer. Continue to monitor HGB. Grade 3 DFU with osteomyelitis right foot is slowly improving, showing new granulation at the perimeter and in the center. Continue the Aquacel Q3 days and prn, and ABX per Dr. Fernandez. Small ulceration medial met head area is now soft, no purulence. Re re-start the Aquacel in the area, Q3d and prn. Dry eschar wounds dorsum of toes and large unstageable dry eschar of heel will continue Betadine paint BID. Off load with foam boot. May use "surgical shoe" for short distance (like the distance to the bathroom) ambulation with PT, she will not be able to wear her regular shoe for any significant amount of walking.The surgical shoe can be put over the dressings, but that would at least get the joints and muscles moving a little. 11/29/17 Admitted yesterday to swing bed status under the care of Dr. Caraballo. Appreciate ongoing infectious disease consultation and recommendations by Dr. Afua Fernandez. Patient will continue to receive IV Zosyn for treatment of osteomyelitis of the right 1st metatarsal. Course will be complete through December 22, 2017. Lower extremity wound will continue to be followed by the wound care center and Dr. Lopez. Continue to follow routine labs periodically through her stay. She has been anemic during her acute visit, hemoglobin has been low, however, remained stable , today 7.2 Routine Bumex was placed on hold yesterday 11/28 given. Hypovolemia with elevated sodium of 151. Patient was given 1 liter of IV fluids, today sodium has improved to 145. Will monitor carefully, suspect patient well need to be placed back on Bumex in the near future for chronic diuresing. Monitor daily under weights and I/O Carefully Continue to monitor renal function carefully, creatinine today 1.5 11/30/17 Admitted yesterday to swing bed status under the care of Dr. Caraballo. Appreciate ongoing infectious disease consultation and recommendations by Dr. Afua Fernandez. Patient will continue to receive IV Zosyn for treatment of osteomyelitis of the right 1st metatarsal. Course will be complete through December 22, 2017. Lower extremity wound will continue to be followed by the wound care center and Dr. Lopez. Continue to follow routine labs periodically through her stay. She has been anemic during her acute visit, hemoglobin has been low, however, remained stable , today 7.2 Routine Bumex was placed on hold 11/28 given hypovolemia with elevated sodium. Monitor po intake on dysphagia diet. She is particularly having trouble with thickened liquids. 12/01/17 Overall, Angela appears to be doing well. She complains of urinary urgency. UA obtained revealed 50-200 WBC with 5-10 squamous epithelial cells, 1-3 transition epithelial cells and trace bacteria. Will hold off on additional antibiotic treatment until culture is available. She remains on IV Zosyn for treatment of osteomyelitis of the right 1st metatarsal. Course will be complete through December 22, 2017. Appreciate ongoing infectious disease consultation and recommendations by Dr. Afua Fernandez. Lower extremity wound will continue to be followed by the wound care center and Dr. Lopez. Weight slowly trending up. Routine Bumex was placed on hold 11/28 given hypovolemia. Continue to monitor oral intake on dysphagia diet. She is particularly having trouble with thickened liquids. Hypernatremia resolved with Bumex on hold. Anemia stable. Continue to monitor electrolytes closely. Blood sugars slightly elevated. Will increase breakfast NovoLog to 2 units and continue to monitor closely, adjusting as indicated. Continue to monitor I&O closely as well as daily weight. Will discuss restarting home Bumex with Dr. Caraballo given resolution of hypernatremia and increasing weight and blood pressure. Plan is for patient to remain on swing bed status through the course of her antibiotics. 12/02/17 UA was collected yesterday 12/01- Holding off tx until C/S resulted Requiring increased oxygen today to 4 liters Suspect she is intravascularly dry given Hypernatremia and elevated Curtain Stretcher. However weight trends up and she is not requiring more oxygen- suspect edema extravascularly. Will given D5W- at 75 ml/hr for gently hydration given decreased PO fluid intake. Will Give 1 unit of PRBC given anemia. Give a one time dose of IV Bumex this afternoon following transfusion. She was previously on Bumex BID however it was held 11/28 and resumed daily this morning. Continue on IV Zosyn for treatment of osteomyelitis of the right 1st metatarsal. Course will be complete through December 22, 2017. 12/03/17 UA was collected yesterday 12/01- C/S revels no growth after 1 day - No treatment Given increased wheezing will give additional dose of Bumex 1 mg IV this afternoon Oxygen demands are slightly up from baseline Continue to follow Hgb- 7.6 today Continue on IV Zosyn for treatment of osteomyelitis of the right 1st metatarsal. Course will be complete through December 22, 2017. 12/04/17 Extra Bumex given yesterday - No wheezing on exam today. Renal function has been worsening; currently at 2.1. Weight trending up. 12/05/17 Increased subjective SOA today; will repeat CXR. Cr 2.0. Na 150. 12/06/17 CXR reviewed - improvement noted. Down to 1L per NC. Renal function stable, BUN 33 and cr 1.9. Na still high but also stable at 150. Hgb down to 7.4 but overall asymptomatic - monitor. TSH trending down after initiation of Synthroid back in September, 6.03 12/07/17 CXR reviewed - improvement noted. At baseline 2 liters oxygen. On oral bumex. Renal function stable, BUN 33 and cr 1.9. Na still high but also stable at 150. Hgb down to 7.4 but overall asymptomatic - monitor. Repeat labs Saturday. TSH trending down after initiation of Synthroid back in September,.03 Encouraged PT/OT. Continue Zosyn for osteomyelitis of the right 1st metatarsal through December 22, 2017. Wound care per Dr. Lopez/wound team. 12/08/17 At baseline 2 liters oxygen. On oral Bumex-repeat serum sodium. May need to decrease dose of Bumex. Renal function stable, BUN 33 and cr 1.9. Na still high but also stable at 150. Hgb down to 7.4 but overall asymptomatic - monitor. Repeat labs now and in AM. TSH trending down after initiation of Synthroid back in September,.03 Encouraged PT/OT. Unable to use blood thinners due to concern for slow GI blood losses. Continue SCDs. Continue Zosyn for osteomyelitis of the right 1st metatarsal through December 22, 2017. Wound care per Dr. Lopez/wound team. 12/09/17 Conversational dyspnea and decreased air movement with increased crackles to bases -- weight has been trending up. Will give Bumex 0.5 mg IV x1. Cont oral Bumex. Repeat CXR now. BUN 33, Cr 1.9 -- recheck in am. Hgb 8.1 - stable for pt. Increase Synthroid to 37.5 mcg. 12/10/17 Still slightly tachypneic; CXR personally reviewed showing failure with pleural eff. Will give add'l Bumex 0.5 mg IV x1 for diuresis. Monitor renal function/Na : Na stable at 148, BUN 31, Cr 2.0. 12/11/17- Overall stable. Dyspnea improved, continue on scheduled PO Bumex. 12/13/17- Medically stable. Continue with PO daily bumex. Continue PT/OT.Continue Zosyn for osteomyelitis of the right 1st metatarsal tentatively through December 22, 2017. Per Dr. Fernandez, she'd recommend Invanz 1gm IV daily and Daptomycin 6mg/kg IV daily for outpt therapy. Plan - 12/16/17-SWING status. Continue Zosyn through 12/22/[address] Fernandez, or if antibiotics needed outpatient-Invanz 1 g IV daily and daptomycin 6 mg/kg IV daily through 2017 Consult with orthopedic team- Xray reveled degenerative changes of glenohumeral joint. Recommend PT/OT Continue with current wound care & BiPAP HS Spoke with CM regarding possible IRU for ongoing antibiotics and increased therapy for strengthening. Plan - 12/17/17-SWING status. Continue Zosyn through 12/22/[address] Fernandez, or if antibiotics needed outpatient-Invanz 1 g IV daily and daptomycin 6 mg/kg IV daily through 2017 Topical Voltaren gel for pain of right shoulder gel Follow routine lab work, hemoglobin is stable at 7.2. Bumex was decreased to 0.5 mg daily as well as potassium to 10 mEq Check chemistry panel - 12/19 Continue to work with PT/OT for strengthening. She is worried about her balance.
[2017-12-17] MEDS: MIRTAZAPINE 15 MG TABLET PO SCH (20:31)
[2017-12-17] MEDS: ATORVASTATIN 40 MG TABLET PO SCH (20:31)
[2017-12-17] MEDS: INSULIN DETEMIR 100unit/ml INJECTION SQ SCH (21:23)
[2017-12-18] MEDS: DICLOFENAC 1% TOP GEL 100gm TP SCH ×5 (00:16→22:19)
[2017-12-18] MEDS: SALINE FLUSH 10ml SYRINGE IVF PRN ×2 (00:57→06:23)
[2017-12-18] MEDS: D5W IV SCH ×4 (00:57→18:19)
[2017-12-18] MEDS: PIPERACILLIN IV SCH ×4 (00:57→18:19)
[2017-12-18] MEDS: TAZOBACTAM IV SCH ×4 (00:57→18:19)
[2017-12-18] MEDS: LEVOTHYROXINE 25 MCG TABLET PO SCH (06:24)
[2017-12-18] MEDS: SUCRALFATE 1gm/10ml ORAL LIQUID PO SCH ×4 (06:24→21:05)
[2017-12-18] MEDS: PANTOPRAZOLE 40 MG TABLET PO SCH ×2 (06:24→17:39)
[2017-12-18] MEDS: FERROUS SULFATE 324 MG TABLET PO SCH (08:00)
[2017-12-18] MEDS: CARVEDILOL 12.5 MG TABLET PO SCH ×2 (08:01→17:39)
[2017-12-18] MEDS: AMLODIPINE 2.5 MG TABLET PO SCH (08:01)
[2017-12-18] MEDS: AMIODARONE 200 MG TABLET PO SCH (08:01)
[2017-12-18] MEDS: ASPIRIN 81 MG CHEWABLE TABLET PO SCH (08:01)
[2017-12-18] MEDS: LISINOPRIL 2.5 MG TABLET PO SCH (08:01)
[2017-12-18] MEDS: LACTOBACILLUS (15B cfu) CAPSULE PO SCH ×2 (08:01→17:39)
[2017-12-18] MEDS: BUMETANIDE 0.5 MG TABLET PO SCH (08:01)
[2017-12-18] MEDS: INSULIN ASPART 100unit/ml INJECTION SQ SCH ×3 (08:01→18:19)
[2017-12-18] MEDS: ASCORBIC ACID 500 MG TABLET PO SCH (08:02)
--- NOTE | 2017-12-18 08:14 | Orthopedic Progress Note ---
Date: Date: 12/18/17 Time: 810 Subjective/Severity of Illness: Angela is sitting up in the chair this morning on rounds, she is asleep but arouses easily. Reports Voltaren gel has improved right shoulder pain. She continues to work with PT, and feels her extension has improved. Has been performing pendulum exercises as well. Denies any other concerns. Exam - Constitutional Vital Signs: Temperature 96.8 F 12/18/17 07:00 Pulse Rate 79 12/18/17 07:00 Respiratory Rate 14 12/18/17 07:00 Blood Pressure 140/65 H 12/18/17 07:00 Pulse Oximetry 100 12/18/17 07:00 General: cooperative, well developed, well groomed, frail appearing Nutritional Appearance: well nourished Orientation: alert, oriented x3 - RUE Postoperative Appearance: extremity compartments are soft and nontender, neurovascullary intact to extremities Skin: no rashes or lesions noted Elbow Range of Motion: within normal limits Wrist Range of Motion: within normal limits Range of Motion: extension improved to 90 degrees, abduction limited to approx 60 degrees. Vascular: radial pulse within normal limits - Respiratory Respiratory Exam: non-labored - Cardiac Cardiovascular exam: pedal pulses intact - Labs Result Diagrams: 12/18/17 04:29 12/16/17 03:41 Abnormal lab results 12/18/17 12/18/17 Range/Units 04:29 06:58 RBC 2.39 L (4.00-5.20) M/MM3 Hgb 7.4 L (12-16) GM/DL Hct 24.4 L (36-46) % MCV 102.1 H (80-100) UM3 MCHC 30.3 L (31-37) GM/DL RDW Std Deviation 63.2 H (36.9-50.2) FL Lymphocytes % (Manual) 17.0 L (23-45) % Eosinophils % (Manual) 11.0 H (0-4) % Metamyelocytes % 1.0 H (0-0) % Eosinophils # (Manual) 0.7 H (0-0.5) T/MM3 ABG pH 7.308 L (7.350-7.450) ABG HCO3 21.8 L (22.0-26.0) MEQ/L ABG Base Excess -4.2 L (-2.0-2.0) MMOL/L H & H 11/29/17 12/02/17 12/02/17 Range/Units 03:55 04:06 17:44 Hgb 7.2 L 6.8 L 9.0 L D (12-16) GM/DL Hct 24.4 L 23.0 L (36-46) % 12/03/17 12/04/17 12/06/17 Range/Units 03:59 04:50 05:09 Hgb 7.6 L D 8.0 L 7.4 L (12-16) GM/DL Hct 25.1 L 26.5 L 24.5 L (36-46) % 12/08/17 12/09/17 12/11/17 Range/Units 15:29 05:19 05:39 Hgb 7.5 L 8.1 L 7.6 L (12-16) GM/DL Hct 24.8 L 26.6 L 25.1 L (36-46) % 12/13/17 12/16/17 12/17/17 Range/Units 04:52 03:41 03:54 Hgb 7.5 L 7.4 L 7.2 L (12-16) GM/DL Hct 24.8 L 24.4 L 23.5 L (36-46) % 12/18/17 Range/Units 04:29 Hgb 7.4 L (12-16) GM/DL Hct 24.4 L (36-46) % Orthopedic Assessment and Plan (1) Osteoarthritis of right shoulder Status: Acute Assessment and Plan: Continue OT/PT to improve mobility Voltaren gel 1% 2 gm QID Will follow patient as needed throughout hospital stay, can schedule follow up with Ortho outpatient upon discharge. Hospitalist following medically, thank you for consultation Hospital Course Summary Disclaimer: The visit summary below is not to be considered part of the above Progress Note. Hospital Course: 11/28/17 [place] [facility] [place]. 11/29/17 - Wound/Surgical note: HGB has been stable in the 7 range for a week. Continue treatment for esophageal ulceration associated with her esophageal cancer. Continue to monitor HGB. Grade 3 DFU with osteomyelitis right foot is slowly improving, showing new granulation at the perimeter and in the center. Continue the Aquacel Q3 days and prn, and ABX per Dr. Fernandez. Small ulceration medial met head area is now soft, no purulence. Re re-start the Aquacel in the area, Q3d and prn. Dry eschar wounds dorsum of toes and large unstageable dry eschar of heel will continue Betadine paint BID. Off load with foam boot. May use "surgical shoe" for short distance (like the distance to the bathroom) ambulation with PT, she will not be able to wear her regular shoe for any significant amount of walking.The surgical shoe can be put over the dressings, but that would at least get the joints and muscles moving a little. 11/29/17 Admitted yesterday to swing bed status under the care of Dr. Caraballo. Appreciate ongoing infectious disease consultation and recommendations by Dr. Afua Fernandez. Patient will continue to receive IV Zosyn for treatment of osteomyelitis of the right 1st metatarsal. Course will be complete through December 22, 2017. Lower extremity wound will continue to be followed by the wound care center and Dr. Lopez. Continue to follow routine labs periodically through her stay. She has been anemic during her acute visit, hemoglobin has been low, however, remained stable , today 7.2 Routine Bumex was placed on hold yesterday 11/28 given. Hypovolemia with elevated sodium of 151. Patient was given 1 liter of IV fluids, today sodium has improved to 145. Will monitor carefully, suspect patient well need to be placed back on Bumex in the near future for chronic diuresing. Monitor daily under weights and I/O Carefully Continue to monitor renal function carefully, creatinine today 1.5 11/30/17 Admitted yesterday to swing bed status under the care of Dr. Caraballo. Appreciate ongoing infectious disease consultation and recommendations by Dr. Afua Fernandez. Patient will continue to receive IV Zosyn for treatment of osteomyelitis of the right 1st metatarsal. Course will be complete through December 22, 2017. Lower extremity wound will continue to be followed by the wound care center and Dr. Lopez. Continue to follow routine labs periodically through her stay. She has been anemic during her acute visit, hemoglobin has been low, however, remained stable , today 7.2 Routine Bumex was placed on hold 11/28 given hypovolemia with elevated sodium. Monitor po intake on dysphagia diet. She is particularly having trouble with thickened liquids. 12/01/17 Overall, Angela appears to be doing well. She complains of urinary urgency. UA obtained revealed 50-200 WBC with 5-10 squamous epithelial cells, 1-3 transition epithelial cells and trace bacteria. Will hold off on additional antibiotic treatment until culture is available. She remains on IV Zosyn for treatment of osteomyelitis of the right 1st metatarsal. Course will be complete through December 22, 2017. Appreciate ongoing infectious disease consultation and recommendations by Dr. Afua Fernandez. Lower extremity wound will continue to be followed by the wound care center and Dr. Lopez. Weight slowly trending up. Routine Bumex was placed on hold 11/28 given hypovolemia. Continue to monitor oral intake on dysphagia diet. She is particularly having trouble with thickened liquids. Hypernatremia resolved with Bumex on hold. Anemia stable. Continue to monitor electrolytes closely. Blood sugars slightly elevated. Will increase breakfast NovoLog to 2 units and continue to monitor closely, adjusting as indicated. Continue to monitor I&O closely as well as daily weight. Will discuss restarting home Bumex with Dr. Caraballo given resolution of hypernatremia and increasing weight and blood pressure. Plan is for patient to remain on swing bed status through the course of her antibiotics. 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 However weight trends up and she is not requiring more oxygen- suspect edema extravascularly. Will given D5W- at 75 ml/hr for gently hydration given decreased PO fluid intake. Will Give 1 unit of PRBC given anemia. Give a one time dose of IV Bumex this afternoon following transfusion. She was previously on Bumex BID however it was held 11/28 and resumed daily this morning. Continue on IV Zosyn for treatment of osteomyelitis of the right 1st metatarsal. Course will be complete through December 22, 2017. 12/03/17 UA was collected yesterday 12/01- C/S revels no growth after 1 day - No treatment Given increased wheezing will give additional dose of Bumex 1 mg IV this afternoon Oxygen demands are slightly up from baseline Continue to follow Hgb- 7.6 today Continue on IV Zosyn for treatment of osteomyelitis of the right 1st metatarsal. Course will be complete through December 22, 2017. 12/04/17 Extra Bumex given yesterday - No wheezing on exam today. Renal function has been worsening; currently at 2.1. Weight trending up. 12/05/17 Increased subjective SOA today; will repeat CXR. Cr 2.0. Na 150. 12/06/17 CXR reviewed - improvement noted. Down to 1L per NC. Renal function stable, BUN 33 and cr 1.9. Na still high but also stable at 150. Hgb down to 7.4 but overall asymptomatic - monitor. TSH trending down after initiation of Synthroid back in September, 6.03 12/07/17 CXR reviewed - improvement noted. At baseline 2 liters oxygen. On oral bumex. Renal function stable, BUN 33 and cr 1.9. Na still high but also stable at 150. Hgb down to 7.4 but overall asymptomatic - monitor. Repeat labs Saturday. TSH trending down after initiation of Synthroid back in September,.03 Encouraged PT/OT. Continue Zosyn for osteomyelitis of the right 1st metatarsal through December 22, 2017. Wound care per Dr. Lopez/wound team. 12/08/17 At baseline 2 liters oxygen. On oral Bumex-repeat serum sodium. May need to decrease dose of Bumex. Renal function stable, BUN 33 and cr 1.9. Na still high but also stable at 150. Hgb down to 7.4 but overall asymptomatic - monitor. Repeat labs now and in AM. TSH trending down after initiation of Synthroid back in September,.03 Encouraged PT/OT. Unable to use blood thinners due to concern for slow GI blood losses. Continue SCDs. Continue Zosyn for osteomyelitis of the right 1st metatarsal through December 22, 2017. Wound care per Dr. Lopez/wound team. 12/09/17 Conversational dyspnea and decreased air movement with increased crackles to bases -- weight has been trending up. Will give Bumex 0.5 mg IV x1. Cont oral Bumex. Repeat CXR now. BUN 33, Cr 1.9 -- recheck in am. Hgb 8.1 - stable for pt. Increase Synthroid to 37.5 mcg. 12/10/17 Still slightly tachypneic; CXR personally reviewed showing failure with pleural eff. Will give add'l Bumex 0.5 mg IV x1 for diuresis. Monitor renal function/Na : Na stable at 148, BUN 31, Cr 2.0. 12/11/17- Overall stable. Dyspnea improved, continue on scheduled PO Bumex. 12/13/17- Medically stable. Continue with PO daily bumex. Continue PT/OT.Continue Zosyn for osteomyelitis of the right 1st metatarsal tentatively through December 22, 2017. Per Dr. Fernandez, she'd recommend Invanz 1gm IV daily and Daptomycin 6mg/kg IV daily for outpt therapy. Plan - 12/16/17-SWING status. Continue Zosyn through 12/22/[address] Fernandez, or if antibiotics needed outpatient-Invanz 1 g IV daily and daptomycin 6 mg/kg IV daily through 2017 Consult with orthopedic team- Xray reveled degenerative changes of glenohumeral joint. Recommend PT/OT Continue with current wound care & BiPAP HS Spoke with CM regarding possible IRU for ongoing antibiotics and increased therapy for strengthening. Plan - 12/17/17-SWING status. Continue Zosyn through 12/22/[address] Fernandez, or if antibiotics needed outpatient-Invanz 1 g IV daily and daptomycin 6 mg/kg IV daily through 2017 Topical Voltaren gel for pain of right shoulder gel Follow routine lab work, hemoglobin is stable at 7.2. Bumex was decreased to 0.5 mg daily as well as potassium to 10 mEq Check chemistry panel - 12/19 Continue to work with PT/OT for strengthening. She is worried about her balance.
--- NOTE | 2017-12-18 16:12 | Progress Note ---
- Date 12/18/17 Subjective: Angela is seen this afternoon. Resting in bed reading a book. She is currently on her baseline oxygen. She does note that she feels more tired this afternoon. She did do a overnight oximetry off of her BiPAP last night and did maintain adequate saturations. For the most part. She did use to use CPAP at home. However, has not used it in quite some time. It is interesting in edition in back to CPAP, given that she does not really require BiPAP. Otherwise, she states that she is feeling fine without any difficulties. No new pain, dyspnea, GI complaints. Appetite is good. Objective Vital signs: Temperature 97.9 F 12/18/17 15:00 Pulse Rate 66 12/18/17 15:00 Respiratory Rate 16 12/18/17 15:00 Blood Pressure 133/56 12/18/17 15:00 Pulse Oximetry 98 12/18/17 15:00 Height/Weight/BMI: Height 1.63 m Weight 75.5 kg Body Mass Index 29.0 - Constitutional Present: no acute distress, well nourished, well developed - Routine HEENT Exam Eye: Present: EOMI ENT: Present: mucous membranes moist, dentition normal - Routine Respiratory Exam Present: CTA bilaterally. Absent: wheezes - Routine Cardiovascular Exam Present: RRR. Absent: murmur - Routine Abdominal Exam Present: soft, normoactive bowel sounds, non distended. Absent: tenderness - Routine Extremities Exam Present: normal capillary refill - Routine Skin Exam Present: intact, dry, warm - Routine Neurological Exam Present: alert, oriented X3, CN II-XII intact, moving all extremities - Routine Lymphatic Exam Lymphatic: Absent: adenopathy - Routine Psychiatric Exam Present: normal affect, cooperative Results - Labs CBC & Chem 7: 12/18/17 04:29 12/16/17 03:41 Microbiology Results: Microbiology 12/01/17 12:08 Urine, Voided (Cc/notcc) Urine Culture - Final No Growth After 2 Days - ABG Interpretation ABG results: 12/18/17 06:58 ABG pH 7.308 L ABG pCO2 44 ABG pO2 87.8 ABG HCO3 21.8 L ABG Total CO2 23.1 ABG O2 Saturation 95.7 ABG Base Excess -4.2 L Assessment and Plan (1) Osteomyelitis of ankle or foot Current visit: No Status: Acute Assessment and Plan: Impression Osteomyelitis, right lower extremity wound. Diabetic foot ulcer Hypernatremia Anemia Esophageal cancer-chemotherapy, currently on hold Type II diabetes Peripheral artery disease Acute on chronic kidney disease. Congestive heart failure Atrial fibrillation. COPD-chronic oxygen use at 2 liters Hypothyroidism Plan 12/18/17-SWING status. She will have her sister bring her home C-pap. We will went to utilize this at night as she does not need BiPAP. Will continue on her baseline oxygen. Bumex 0.5 mg daily as well as potassium to 10 mEq Continue Zosyn through 12/22/[address] Fernandez, or if antibiotics needed outpatient-Invanz 1 g IV daily and daptomycin 6 mg/kg IV daily through 2017. Will likely need to get Dr. Fernandez's recommendations on Saturday12/23/17 for ongoing discharge plan as this will complete her 6 week course. Follow routine lab work, hemoglobin is stable at 7.4 Check chemistry panel are all - 12/19 Continue to work with PT/OT for strengthening. She is worried about her balance. - Physician Narrative Narrative: Date: 12/18/17 Time: 1607 Hospital Course Summary Disclaimer: The visit summary below is not to be considered part of the above Progress Note. Hospital Course: 11/28/17 Admitted to Swing bed at [facility] [place] for continuation of IV antibiotics. 11/29/17 - Wound/Surgical note: HGB has been stable in the 7 range for a week. Continue treatment for esophageal ulceration associated with her esophageal cancer. Continue to monitor HGB. Grade 3 DFU with osteomyelitis right foot is slowly improving, showing new granulation at the perimeter and in the center. Continue the Aquacel Q3 days and prn, and ABX per Dr. Fernandez. Small ulceration medial met head area is now soft, no purulence. Re re-start the Aquacel in the area, Q3d and prn. Dry eschar wounds dorsum of toes and large unstageable dry eschar of heel will continue Betadine paint BID. Off load with foam boot. May use "surgical shoe" for short distance (like the distance to the bathroom) ambulation with PT, she will not be able to wear her regular shoe for any significant amount of walking.The surgical shoe can be put over the dressings, but that would at least get the joints and muscles moving a little. 11/29/17 Admitted yesterday to swing bed status under the care of Dr. Caraballo. Appreciate ongoing infectious disease consultation and recommendations by Dr. Afua Fernandez. Patient will continue to receive IV Zosyn for treatment of osteomyelitis of the right 1st metatarsal. Course will be complete through December 22, 2017. Lower extremity wound will continue to be followed by the wound care center and Dr. Lopez. Continue to follow routine labs periodically through her stay. She has been anemic during her acute visit, hemoglobin has been low, however, remained stable , today 7.2 Routine Bumex was placed on hold yesterday 11/28 given. Hypovolemia with elevated sodium of 151. Patient was given 1 liter of IV fluids, today sodium has improved to 145. Will monitor carefully, suspect patient well need to be placed back on Bumex in the near future for chronic diuresing. Monitor daily under weights and I/O Carefully Continue to monitor renal function carefully, creatinine today 1.5 11/30/17 Admitted yesterday to swing bed status under the care of Dr. Caraballo. Appreciate ongoing infectious disease consultation and recommendations by Dr. Afua Fernandez. Patient will continue to receive IV Zosyn for treatment of osteomyelitis of the right 1st metatarsal. Course will be complete through December 22, 2017. Lower extremity wound will continue to be followed by the wound care center and Dr. Lopez. Continue to follow routine labs periodically through her stay. She has been anemic during her acute visit, hemoglobin has been low, however, remained stable , today 7.2 Routine Bumex was placed on hold 11/28 given hypovolemia with elevated sodium. Monitor po intake on dysphagia diet. She is particularly having trouble with thickened liquids. 12/01/17 Overall, Angela appears to be doing well. She complains of urinary urgency. UA obtained revealed 50-200 WBC with 5-10 squamous epithelial cells, 1-3 transition epithelial cells and trace bacteria. Will hold off on additional antibiotic treatment until culture is available. She remains on IV Zosyn for treatment of osteomyelitis of the right 1st metatarsal. Course will be complete through December 22, 2017. Appreciate ongoing infectious disease consultation and recommendations by Dr. Afua Fernandez. Lower extremity wound will continue to be followed by the wound care center and Dr. Lopez. Weight slowly trending up. Routine Bumex was placed on hold 11/28 given hypovolemia. Continue to monitor oral intake on dysphagia diet. She is particularly having trouble with thickened liquids. Hypernatremia resolved with Bumex on hold. Anemia stable. Continue to monitor electrolytes closely. Blood sugars slightly elevated. Will increase breakfast NovoLog to 2 units and continue to monitor closely, adjusting as indicated. Continue to monitor I&O closely as well as daily weight. Will discuss restarting home Bumex with Dr. Caraballo given resolution of hypernatremia and increasing weight and blood pressure. Plan is for patient to remain on swing bed status through the course of her antibiotics. 12/02/17 UA was collected yesterday 12/01- Holding off tx until C/S resulted Requiring increased oxygen today to 4 liters Suspect she is intravascularly dry given Hypernatremia and elevated [employer]. However weight trends up and she is not requiring more oxygen- suspect edema extravascularly. Will given D5W- at 75 ml/hr for gently hydration given decreased PO fluid intake. Will Give 1 unit of PRBC given anemia. Give a one time dose of IV Bumex this afternoon following transfusion. She was previously on Bumex BID however it was held 11/28 and resumed daily this morning. Continue on IV Zosyn for treatment of osteomyelitis of the right 1st metatarsal. Course will be complete through December 22, 2017. 12/03/17 UA was collected yesterday 12/01- C/S revels no growth after 1 day - No treatment Given increased wheezing will give additional dose of Bumex 1 mg IV this afternoon Oxygen demands are slightly up from baseline Continue to follow Hgb- 7.6 today Continue on IV Zosyn for treatment of osteomyelitis of the right 1st metatarsal. Course will be complete through December 22, 2017. 12/04/17 Extra Bumex given yesterday - No wheezing on exam today. Renal function has been worsening; currently at 2.1. Weight trending up. 12/05/17 Increased subjective SOA today; will repeat CXR. Cr 2.0. Na 150. 12/06/17 CXR reviewed - improvement noted. Down to 1L per NC. Renal function stable, BUN 33 and cr 1.9. Na still high but also stable at 150. Hgb down to 7.4 but overall asymptomatic - monitor. TSH trending down after initiation of Synthroid back in September,.03 12/07/17 CXR reviewed - improvement noted. At baseline 2 liters oxygen. On oral bumex. Renal function stable, BUN 33 and cr 1.9. Na still high but also stable at 150. Hgb down to 7.4 but overall asymptomatic - monitor. Repeat labs Saturday. TSH trending down after initiation of Synthroid back in September,.03 Encouraged PT/OT. Continue Zosyn for osteomyelitis of the right 1st metatarsal through December 22, 2017. Wound care per Dr. Lopez/wound team. 12/08/17 At baseline 2 liters oxygen. On oral Bumex-repeat serum sodium. May need to decrease dose of Bumex. Renal function stable, BUN 33 and cr 1.9. Na still high but also stable at 150. Hgb down to 7.4 but overall asymptomatic - monitor. Repeat labs now and in AM. TSH trending down after initiation of Synthroid back in September,.03 Encouraged PT/OT. Unable to use blood thinners due to concern for slow GI blood losses. Continue SCDs. Continue Zosyn for osteomyelitis of the right 1st metatarsal through December 22, 2017. Wound care per Dr. Lopez/wound team. 12/09/17 Conversational dyspnea and decreased air movement with increased crackles to bases -- weight has been trending up. Will give Bumex 0.5 mg IV x1. Cont oral Bumex. Repeat CXR now. BUN 33, Cr 1.9 -- recheck in am. Hgb 8.1 - stable for pt. Increase Synthroid to 37.5 mcg. 12/10/17 Still slightly tachypneic; CXR personally reviewed showing failure with pleural eff. Will give add'l Bumex 0.5 mg IV x1 for diuresis. Monitor renal function/Na : Na stable at 148, BUN 31, Cr 2.0. 12/11/17- Overall stable. Dyspnea improved, continue on scheduled PO Bumex. 12/13/17- Medically stable. Continue with PO daily bumex. Continue PT/OT.Continue Zosyn for osteomyelitis of the right 1st metatarsal tentatively through December 22, 2017. Per Dr. Fernandez, she'd recommend Invanz 1gm IV daily and Daptomycin 6mg/kg IV daily for outpt therapy. Plan - 12/16/17-SWING status. Continue Zosyn through 12/22/[address] Fernandez, or if antibiotics needed outpatient-Invanz 1 g IV daily and daptomycin 6 mg/kg IV daily through 2017 Consult with orthopedic team- Xray reveled degenerative changes of glenohumeral joint. Recommend PT/OT Continue with current wound care & BiPAP HS Spoke with CM regarding possible IRU for ongoing antibiotics and increased therapy for strengthening. Plan - 12/17/17-SWING status. Continue Zosyn through 12/22/[address] Fernandez, or if antibiotics needed outpatient-Invanz 1 g IV daily and daptomycin 6 mg/kg IV daily through 2017 Topical Voltaren gel for pain of right shoulder gel Follow routine lab work, hemoglobin is stable at 7.2. Bumex was decreased to 0.5 mg daily as well as potassium to 10 mEq Check chemistry panel - 12/19 Continue to work with PT/OT for strengthening. She is worried about her balance. Plan 12/18/17-SWING status. She will have her sister bring her home C-pap. We will went to utilize this at night as she does not need BiPAP. Will continue on her baseline oxygen. Bumex 0.5 mg daily as well as potassium to 10 mEq Continue Zosyn through 12/22/[address] Fernandez, or if antibiotics needed outpatient-Invanz 1 g IV daily and daptomycin 6 mg/kg IV daily through 2017. Will likely need to get Dr. Fernandez's recommendations on Saturday12/23/17 for ongoing discharge plan as this will complete her 6 week course. Follow routine lab work, hemoglobin is stable at 7.4 Check chemistry panel are all - 12/19 Continue to work with PT/OT for strengthening. She is worried about her balance.
[2017-12-18] MEDS: ACETAMINOPHEN 500 MG TABLET PO PRN (17:39)
--- NOTE | 2017-12-18 18:26 | General Surgery Progress Note ---
Subjective Narrative: She is eating supper, denies nausea, abd pain, chest pain. She tells me that she recently bumped her toes right foot on the wheel of her walker. At some point dressings on the toes have changed to foam, not sure when that changed form Betadine paint. She is without new complaints other than some bleeding from the toe that got bumped on the wheelchair wheel. - Vital Signs Last Vital Signs Temp 97.9 F 12/18/17 15:00 Pulse 66 12/18/17 15:00 Resp 16 12/18/17 15:00 BP 133/56 12/18/17 15:00 Pulse Ox 98 12/18/17 15:00 - Laboratory Result Diagrams: 12/18/17 04:29 12/16/17 03:41 - Abnormal Exam Respiratory: other (on oxygen chronically) Skin: Right heel eschar dry and intact. Right foot medial wound with granulation but creamy exudate. Right foot toes dorsal aspect, have changed from dry eschar to to soft, with some minor bleeding. They are painted with Betadine and gauze wrapped this evening. - Normal Exam General: awake, alert, oriented, no acute distress Abdominal: soft, non-tender Assessment and Plan (1) Osteomyelitis of ankle or foot Current Visit: No Status: Acute (2) Unstageable pressure ulcer of right heel Current Visit: Yes Status: Acute (3) Esophageal cancer Current Visit: Yes Status: Chronic Qualifiers: Malignant neoplasm of esophagus location: lower third Qualified Code(s): C15.5 - Malignant neoplasm of lower third of esophagus (4) Esophageal ulcer with bleeding Current Visit: Yes Status: Resolved (5) Acute anemia Current Visit: No Status: Chronic Plan: the heel and medial right foot wounds are stable. Would like to continue painting the heel with Betadine BID and Aquacel then Mepilex to medial wound every 3 days. The toes have changed from dry eschar utilizing Betadine, to soft tissue with some bleeding since I saw her last week. Toes painted with Betadine tonight and dry gauze applied. Will try to get Dr. Lopez to look at these wounds tomorrow. Will likely have to do some debridement of the toes and medial wound. Hospital Course Summary Disclaimer: The visit summary below is not to be considered part of the above Progress Note. Hospital Course: 11/28/17 Admitted to Swing bed at [facility] [place] for continuation of IV antibiotics. 11/29/17 - Wound/Surgical note: HGB has been stable in the 7 range for a week. Continue treatment for esophageal ulceration associated with her esophageal cancer. Continue to monitor HGB. Grade 3 DFU with osteomyelitis right foot is slowly improving, showing new granulation at the perimeter and in the center. Continue the Aquacel Q3 days and prn, and ABX per Dr. Fernandez. Small ulceration medial met head area is now soft, no purulence. Re re-start the Aquacel in the area, Q3d and prn. Dry eschar wounds dorsum of toes and large unstageable dry eschar of heel will continue Betadine paint BID. Off load with foam boot. May use "surgical shoe" for short distance (like the distance to the bathroom) ambulation with PT, she will not be able to wear her regular shoe for any significant amount of walking.The surgical shoe can be put over the dressings, but that would at least get the joints and muscles moving a little. 11/29/17 Admitted yesterday to swing bed status under the care of Dr. Caraballo. Appreciate ongoing infectious disease consultation and recommendations by Dr. Afua Fernandez. Patient will continue to receive IV Zosyn for treatment of osteomyelitis of the right 1st metatarsal. Course will be complete through December 22, 2017. Lower extremity wound will continue to be followed by the wound care center and Dr. Lopez. Continue to follow routine labs periodically through her stay. She has been anemic during her acute visit, hemoglobin has been low, however, remained stable , today 7.2 Routine Bumex was placed on hold yesterday 11/28 given. Hypovolemia with elevated sodium of 151. Patient was given 1 liter of IV fluids, today sodium has improved to 145. Will monitor carefully, suspect patient well need to be placed back on Bumex in the near future for chronic diuresing. Monitor daily under weights and I/O Carefully Continue to monitor renal function carefully, creatinine today 1.5 11/30/17 Admitted yesterday to swing bed status under the care of Dr. Caraballo. Appreciate ongoing infectious disease consultation and recommendations by Dr. Afua Fernandez. Patient will continue to receive IV Zosyn for treatment of osteomyelitis of the right 1st metatarsal. Course will be complete through December 22, 2017. Lower extremity wound will continue to be followed by the wound care center and Dr. Lopez. Continue to follow routine labs periodically through her stay. She has been anemic during her acute visit, hemoglobin has been low, however, remained stable , today 7.2 Routine Bumex was placed on hold 11/28 given hypovolemia with elevated sodium. Monitor po intake on dysphagia diet. She is particularly having trouble with thickened liquids. 12/01/17 Overall, Angela appears to be doing well. She complains of urinary urgency. UA obtained revealed 50-200 WBC with 5-10 squamous epithelial cells, 1-3 transition epithelial cells and trace bacteria. Will hold off on additional antibiotic treatment until culture is available. She remains on IV Zosyn for treatment of osteomyelitis of the right 1st metatarsal. Course will be complete through December 22, 2017. Appreciate ongoing infectious disease consultation and recommendations by Dr. Afua Fernandez. Lower extremity wound will continue to be followed by the wound care center and Dr. Lopez. Weight slowly trending up. Routine Bumex was placed on hold 11/28 given hypovolemia. Continue to monitor oral intake on dysphagia diet. She is particularly having trouble with thickened liquids. Hypernatremia resolved with Bumex on hold. Anemia stable. Continue to monitor electrolytes closely. Blood sugars slightly elevated. Will increase breakfast NovoLog to 2 units and continue to monitor closely, adjusting as indicated. Continue to monitor I&O closely as well as daily weight. Will discuss restarting home Bumex with Dr. Caraballo given resolution of hypernatremia and increasing weight and blood pressure. Plan is for patient to remain on swing bed status through the course of her antibiotics. 12/02/17 UA was collected yesterday 12/01- Holding off tx until C/S resulted Requiring increased oxygen today to 4 liters Suspect she is intravascularly dry given Hypernatremia and elevated [employer]. However weight trends up and she is not requiring more oxygen- suspect edema extravascularly. Will given D5W- at 75 ml/hr for gently hydration given decreased PO fluid intake. Will Give 1 unit of PRBC given anemia. Give a one time dose of IV Bumex this afternoon following transfusion. She was previously on Bumex BID however it was held 11/28 and resumed daily this morning. Continue on IV Zosyn for treatment of osteomyelitis of the right 1st metatarsal. Course will be complete through December 22, 2017. 12/03/17 UA was collected yesterday 12/01- C/S revels no growth after 1 day - No treatment Given increased wheezing will give additional dose of Bumex 1 mg IV this afternoon Oxygen demands are slightly up from baseline Continue to follow Hgb- 7.6 today Continue on IV Zosyn for treatment of osteomyelitis of the right 1st metatarsal. Course will be complete through December 22, 2017. 12/04/17 Extra Bumex given yesterday - No wheezing on exam today. Renal function has been worsening; currently at 2.1. Weight trending up. 12/05/17 Increased subjective SOA today; will repeat CXR. Cr 2.0. Na 150. 12/06/17 CXR reviewed - improvement noted. Down to 1L per NC. Renal function stable, BUN 33 and cr 1.9. Na still high but also stable at 150. Hgb down to 7.4 but overall asymptomatic - monitor. TSH trending down after initiation of Synthroid back in September, 6.03 12/07/17 CXR reviewed - improvement noted. At baseline 2 liters oxygen. On oral bumex. Renal function stable, BUN 33 and cr 1.9. Na still high but also stable at 150. Hgb down to 7.4 but overall asymptomatic - monitor. Repeat labs Saturday. TSH trending down after initiation of Synthroid back in September,.03 Encouraged PT/OT. Continue Zosyn for osteomyelitis of the right 1st metatarsal through December 22, 2017. Wound care per Dr. Lopez/wound team. 12/08/17 At baseline 2 liters oxygen. On oral Bumex-repeat serum sodium. May need to decrease dose of Bumex. Renal function stable, BUN 33 and cr 1.9. Na still high but also stable at 150. Hgb down to 7.4 but overall asymptomatic - monitor. Repeat labs now and in AM. TSH trending down after initiation of Synthroid back in September,.03 Encouraged PT/OT. Unable to use blood thinners due to concern for slow GI blood losses. Continue SCDs. Continue Zosyn for osteomyelitis of the right 1st metatarsal through December 22, 2017. Wound care per Dr. Lopez/wound team. 12/09/17 Conversational dyspnea and decreased air movement with increased crackles to bases -- weight has been trending up. Will give Bumex 0.5 mg IV x1. Cont oral Bumex. Repeat CXR now. BUN 33, Cr 1.9 -- recheck in am. Hgb 8.1 - stable for pt. Increase Synthroid to 37.5 mcg. 12/10/17 Still slightly tachypneic; CXR personally reviewed showing failure with pleural eff. Will give add'l Bumex 0.5 mg IV x1 for diuresis. Monitor renal function/Na : Na stable at 148, BUN 31, Cr 2.0. 12/11/17- Overall stable. Dyspnea improved, continue on scheduled PO Bumex. 12/13/17- Medically stable. Continue with PO daily bumex. Continue PT/OT.Continue Zosyn for osteomyelitis of the right 1st metatarsal tentatively through December 22, 2017. Per Dr. Fernandez, she'd recommend Invanz 1gm IV daily and Daptomycin 6mg/kg IV daily for outpt therapy. Plan - 12/16/17-SWING status. Continue Zosyn through 12/22/[address] Fernandez, or if antibiotics needed outpatient-Invanz 1 g IV daily and daptomycin 6 mg/kg IV daily through 2017 Consult with orthopedic team- Xray reveled degenerative changes of glenohumeral joint. Recommend PT/OT Continue with current wound care & BiPAP HS Spoke with CM regarding possible IRU for ongoing antibiotics and increased therapy for strengthening. Plan - 12/17/17-SWING status. Continue Zosyn through 12/22/[address] Fernandez, or if antibiotics needed outpatient-Invanz 1 g IV daily and daptomycin 6 mg/kg IV daily through 2017 Topical Voltaren gel for pain of right shoulder gel Follow routine lab work, hemoglobin is stable at 7.2. Bumex was decreased to 0.5 mg daily as well as potassium to 10 mEq Check chemistry panel - 12/19 Continue to work with PT/OT for strengthening. She is worried about her balance. Plan 12/18/17-SWING status. She will have her sister bring her home C-pap. We will went to utilize this at night as she does not need BiPAP. Will continue on her baseline oxygen. Bumex 0.5 mg daily as well as potassium to 10 mEq Continue Zosyn through 12/22/[address] Fernandez, or if antibiotics needed outpatient-Invanz 1 g IV daily and daptomycin 6 mg/kg IV daily through 2017. Will likely need to get Dr. Fernandez's recommendations on Saturday12/23/17 for ongoing discharge plan as this will complete her 6 week course. Follow routine lab work, hemoglobin is stable at 7.4 Check chemistry panel are all - 12/19 Continue to work with PT/OT for strengthening. She is worried about her balance.
[2017-12-18] MEDS: ATORVASTATIN 40 MG TABLET PO SCH (21:05)
[2017-12-18] MEDS: MIRTAZAPINE 15 MG TABLET PO SCH (21:05)
[2017-12-18] MEDS: INSULIN DETEMIR 100unit/ml INJECTION SQ SCH (22:18)
[2017-12-19] MEDS: PIPERACILLIN IV SCH ×4 (00:48→18:58)
[2017-12-19] MEDS: TAZOBACTAM IV SCH ×4 (00:48→18:58)
[2017-12-19] MEDS: D5W IV SCH ×4 (00:48→18:58)
[2017-12-19] MEDS: SALINE FLUSH 10ml SYRINGE IVF PRN ×3 (00:48→12:40)
[2017-12-19] MEDS: LEVOTHYROXINE 25 MCG TABLET PO SCH (06:12)
[2017-12-19] MEDS: PANTOPRAZOLE 40 MG TABLET PO SCH ×2 (06:12→17:30)
[2017-12-19] MEDS: SUCRALFATE 1gm/10ml ORAL LIQUID PO SCH ×4 (06:12→22:12)
[2017-12-19] MEDS: BUMETANIDE 0.5 MG TABLET PO SCH (08:17)
[2017-12-19] MEDS: INSULIN ASPART 100unit/ml INJECTION SQ SCH ×3 (08:17→18:17)
[2017-12-19] MEDS: CARVEDILOL 12.5 MG TABLET PO SCH ×2 (08:17→17:30)
[2017-12-19] MEDS: LACTOBACILLUS (15B cfu) CAPSULE PO SCH ×2 (08:17→17:30)
[2017-12-19] MEDS: FERROUS SULFATE 324 MG TABLET PO SCH (08:17)
[2017-12-19] MEDS: ASPIRIN 81 MG CHEWABLE TABLET PO SCH (08:17)
[2017-12-19] MEDS: ASCORBIC ACID 500 MG TABLET PO SCH (08:18)
[2017-12-19] MEDS: AMIODARONE 200 MG TABLET PO SCH (08:18)
[2017-12-19] MEDS: DICLOFENAC 1% TOP GEL 100gm TP SCH ×4 (08:18→22:08)
[2017-12-19] MEDS: AMLODIPINE 2.5 MG TABLET PO SCH (08:19)
[2017-12-19] MEDS: LISINOPRIL 2.5 MG TABLET PO SCH (08:19)
--- NOTE | 2017-12-19 18:09 | Progress Note ---
DATE OF SERVICE 12/18/2017 FINDINGS Ms. Ball was seen this evening on rounds. She does appear significantly better overall since last time I had seen her. She was more awake, alert and conversant. She was in good spirits. PHYSICAL EXAM VITAL SIGNS: Temperature 97.5, pulse 64, respirations 17, blood pressure 145/67 , SAO2 99% on 2 L/nasal cannula. CHEST: Clear to auscultation bilaterally. HEART: Regular rate and rhythm. Normal S1 and S2 without gallops, murmurs or clicks. EXTREMITIES: Attention was focused to her right lower extremity. I have not seen the patient for an extended period of time and her wound involving the right medial foot has markedly improved. There is good granulation tissue throughout the majority of the wound. There, however, are still some nonviable subcutaneous tissues within the wound bed. Overall there has been significant improvement. The patient has now developed some wounds involving her remaining toes involving the right foot. There is an ulceration involving the dorsum of the second toe and remaining fourth toe. There is some necrotic material involving these wounds. ASSESSMENT 82-year-old female with multiple associated medical comorbidities who has right diabetic foot ulcerations. Patient has made marked improvement from a clinical standpoint as well as a wound standpoint since her admission. PLAN Utilizing a sharp surgical curette, the nonviable tissue that was present involving the wounds upon the medial foot and the second fourth toe was debrided sharply. All nonviable subcutaneous tissues were debrided until a minimal amount of bleeding began to occur. Unfortunately upon the dorsum of the toes there is some exposed tendon now. There was some necrosis of the tendon. A small portion of the tendon was excised sharply with a surgical curette until viable tissue was obtained. The patient tolerated debridement without difficulty. Will continue utilizing advanced wound dressings. Continue with current care. I will be leaving town tomorrow. My nurse practitioner will intermittently see Mrs. Ball during my absence. If additional general surgical care is needed please do not hesitate to contact general surgeon on-call. ANGELA
--- NOTE | 2017-12-19 21:25 | Progress Note ---
- Date 12/19/17 Subjective: Patient is seen this evening sitting in her chair. She reports today was a very good day for her. She did very well with therapy. She had several visitors. She' s had no chest pain, shortness of breath, nausea or vomiting. She does currently complain of some pain in her right shoulder and in her leg. Objective Vital signs: Temperature 97.5 F 12/19/17 15:00 Pulse Rate 64 12/19/17 17:00 Respiratory Rate 17 12/19/17 15:00 Blood Pressure 145/67 H 12/19/17 15:00 Pulse Oximetry 99 12/19/17 15:00 Height/Weight/BMI: Height 1.63 m Weight 75.2 kg Body Mass Index 29.0 - Constitutional Present: no acute distress, well nourished, well developed - Routine HEENT Exam Head: Present: normocephalic, atraumatic - Routine Respiratory Exam Present: CTA bilaterally. Absent: wheezes - Routine Cardiovascular Exam Present: RRR, murmur - Routine Abdominal Exam Present: soft, non distended, non tender - Routine Extremities Exam Present: no edema, normal capillary refill Comments: Right foot is in postop shoe - Routine Skin Exam Present: dry, warm - Routine Neurological Exam Present: alert, oriented X3 - Routine Lymphatic Exam Lymphatic: Absent: adenopathy - Routine Psychiatric Exam Present: normal affect, cooperative Results - Labs CBC & Chem 7: 12/19/17 03:59 12/19/17 03:59 Microbiology Results: Microbiology 12/01/17 12:08 Urine, Voided (Cc/notcc) Urine Culture - Final No Growth After 2 Days - ABG Interpretation ABG results: 12/18/17 06:58 ABG pH 7.308 L ABG pCO2 44 ABG pO2 87.8 ABG HCO3 21.8 L ABG Total CO2 23.1 ABG O2 Saturation 95.7 ABG Base Excess -4.2 L Assessment and Plan (1) Osteomyelitis of ankle or foot Problem details: Right first MT Current visit: No Status: Acute Assessment and Plan: Impression Osteomyelitis, right lower extremity wound. Diabetic foot ulcer Hypernatremia Anemia Esophageal cancer-chemotherapy, currently on hold Type II diabetes Peripheral artery disease Acute on chronic kidney disease. Congestive heart failure Atrial fibrillation. COPD-chronic oxygen use at 2 liters Hypothyroidism Plan SWING status. Continue Zosyn through 12/22/[address] Fernandez, or if antibiotics needed outpatient-Invanz 1 g IV daily and daptomycin 6 mg/kg IV daily through 2017. Will likely need to get Dr. Fernandez's recommendations on Saturday12/23/17 for ongoing discharge plan as this will complete her 6 week course. Follow routine lab work, hemoglobin is stable at 7.3 Continue to work with PT/OT for strengthening. Dr. Lopez debrided her ulcerations on the right foot today. Patient with neuropathy, declines pain. - Physician Narrative Physician: Nikky Braun MD Narrative: Date: 12/19/17 Time: 2149 I have independently evaluated and examined this patient. I reviewed the chart, the patient's history, and the VETERINARY EPIDEMIOLOGIST/PA's documented findings as above. We discussed and formulated the assessment and plan as above with additions as below: Mrs. Ball was in good spirits when seen earlier today. She complains minor arthralgias but no dyspnea. Her sister has found her home CPAP unit but patient does not believe she's been using it for some time. Kyphotic female, respirations nonlabored and breath sounds clear except fine crackles at the bases posteriorly. Continue current care; unclear that we need daily CBCs. Discussed with Dr. Lopez and his subsequent wound recommendations noted. Hospital Course Summary Disclaimer: The visit summary below is not to be considered part of the above Progress Note. Hospital Course: 11/28/17 Admitted to Swing bed at [facility] for continuation of IV antibiotics. 11/29/17 - Wound/Surgical note: HGB has been stable in the 7 range for a week. Continue treatment for esophageal ulceration associated with her esophageal cancer. Continue to monitor HGB. Grade 3 DFU with osteomyelitis right foot is slowly improving, showing new granulation at the perimeter and in the center. Continue the Aquacel Q3 days and prn, and ABX per Dr. Fernandez. Small ulceration medial met head area is now soft, no purulence. Re re-start the Aquacel in the area, Q3d and prn. Dry eschar wounds dorsum of toes and large unstageable dry eschar of heel will continue Betadine paint BID. Off load with foam boot. May use "surgical shoe" for short distance (like the distance to the bathroom) ambulation with PT, she will not be able to wear her regular shoe for any significant amount of walking.The surgical shoe can be put over the dressings, but that would at least get the joints and muscles moving a little. 11/29/17 Admitted yesterday to swing bed status under the care of Dr. Caraballo. Appreciate ongoing infectious disease consultation and recommendations by Dr. Afua Fernandez. Patient will continue to receive IV Zosyn for treatment of osteomyelitis of the right 1st metatarsal. Course will be complete through December 22, 2017. Lower extremity wound will continue to be followed by the wound care center and Dr. Lopez. Continue to follow routine labs periodically through her stay. She has been anemic during her acute visit, hemoglobin has been low, however, remained stable , today 7.2 Routine Bumex was placed on hold yesterday 11/28 given. Hypovolemia with elevated sodium of 151. Patient was given 1 liter of IV fluids, today sodium has improved to 145. Will monitor carefully, suspect patient well need to be placed back on Bumex in the near future for chronic diuresing. Monitor daily under weights and I/O Carefully Continue to monitor renal function carefully, creatinine today 1.5 11/30/17 Admitted yesterday to swing bed status under the care of Dr. Caraballo. Appreciate ongoing infectious disease consultation and recommendations by Dr. Afau Fernandez. Patient will continue to receive IV Zosyn for treatment of osteomyelitis of the right 1st metatarsal. Course will be complete through December 22, 2017. Lower extremity wound will continue to be followed by the wound care center and Dr. Lopez. Continue to follow routine labs periodically through her stay. She has been anemic during her acute visit, hemoglobin has been low, however, remained stable , today 7.2 Routine Bumex was placed on hold 11/28 given hypovolemia with elevated sodium. Monitor po intake on dysphagia diet. She is particularly having trouble with thickened liquids. 12/01/17 Overall, Angela appears to be doing well. She complains of urinary urgency. UA obtained revealed 50-200 WBC with 5-10 squamous epithelial cells, 1-3 transition epithelial cells and trace bacteria. Will hold off on additional antibiotic treatment until culture is available. She remains on IV Zosyn for treatment of osteomyelitis of the right 1st metatarsal. Course will be complete through December 22, 2017. Appreciate ongoing infectious disease consultation and recommendations by Dr. Afua Fernandez. Lower extremity wound will continue to be followed by the wound care center and Dr. Lopez. Weight slowly trending up. Routine Bumex was placed on hold 11/28 given hypovolemia. Continue to monitor oral intake on dysphagia diet. She is particularly having trouble with thickened liquids. Hypernatremia resolved with Bumex on hold. Anemia stable. Continue to monitor electrolytes closely. Blood sugars slightly elevated. Will increase breakfast NovoLog to 2 units and continue to monitor closely, adjusting as indicated. Continue to monitor I&O closely as well as daily weight. Will discuss restarting home Bumex with Dr. Caraballo given resolution of hypernatremia and increasing weight and blood pressure. Plan is for patient to remain on swing bed status through the course of her antibiotics. 12/02/17 UA was collected yesterday 12/01- Holding off tx until C/S resulted Requiring increased oxygen today to 4 liters Suspect she is intravascularly dry given Hypernatremia and elevated Chief Projectionist. However weight trends up and she is not requiring more oxygen- suspect edema extravascularly. Will given D5W- at 75 ml/hr for gently hydration given decreased PO fluid intake. Will Give 1 unit of PRBC given anemia. Give a one time dose of IV Bumex this afternoon following transfusion. She was previously on Bumex BID however it was held 11/28 and resumed daily this morning. Continue on IV Zosyn for treatment of osteomyelitis of the right 1st metatarsal. Course will be complete through December 22, 2017. 12/03/17 UA was collected yesterday 12/01- C/S revels no growth after 1 day - No treatment Given increased wheezing will give additional dose of Bumex 1 mg IV this afternoon Oxygen demands are slightly up from baseline Continue to follow Hgb- 7.6 today Continue on IV Zosyn for treatment of osteomyelitis of the right 1st metatarsal. Course will be complete through December 22, 2017. 12/04/17 Extra Bumex given yesterday - No wheezing on exam today. Renal function has been worsening; currently at 2.1. Weight trending up. 12/05/17 Increased subjective SOA today; will repeat CXR. Cr 2.0. Na 150. 12/06/17 CXR reviewed - improvement noted. Down to 1L per NC. Renal function stable, BUN 33 and cr 1.9. Na still high but also stable at 150. Hgb down to 7.4 but overall asymptomatic - monitor. TSH trending down after initiation of Synthroid back in September,.03 12/07/17 CXR reviewed - improvement noted. At baseline 2 liters oxygen. On oral bumex. Renal function stable, BUN 33 and cr 1.9. Na still high but also stable at 150. Hgb down to 7.4 but overall asymptomatic - monitor. Repeat labs Saturday. TSH trending down after initiation of Synthroid back in September,.03 Encouraged PT/OT. Continue Zosyn for osteomyelitis of the right 1st metatarsal through December 22, 2017. Wound care per Dr. Lopez/wound team. 12/08/17 At baseline 2 liters oxygen. On oral Bumex-repeat serum sodium. May need to decrease dose of Bumex. Renal function stable, BUN 33 and cr 1.9. Na still high but also stable at 150. Hgb down to 7.4 but overall asymptomatic - monitor. Repeat labs now and in AM. TSH trending down after initiation of Synthroid back in September,. Encouraged PT/OT. Unable to use blood thinners due to concern for slow GI blood losses. Continue SCDs. Continue Zosyn for osteomyelitis of the right 1st metatarsal through December 22, 2017. Wound care per Dr. Lopez/wound team. 12/09/17 Conversational dyspnea and decreased air movement with increased crackles to bases -- weight has been trending up. Will give Bumex 0.5 mg IV x1. Cont oral Bumex. Repeat CXR now. BUN 33, Cr 1.9 -- recheck in am. Hgb 8.1 - stable for pt. Increase Synthroid to 37.5 mcg. 12/10/17 Still slightly tachypneic; CXR personally reviewed showing failure with pleural eff. Will give add'l Bumex 0.5 mg IV x1 for diuresis. Monitor renal function/Na : Na stable at 148, BUN 31, Cr 2.0. 12/11/17- Overall stable. Dyspnea improved, continue on scheduled PO Bumex. 12/13/17- Medically stable. Continue with PO daily bumex. Continue PT/OT.Continue Zosyn for osteomyelitis of the right 1st metatarsal tentatively through December 22, 2017. Per Dr. Fernandez, she'd recommend Invanz 1gm IV daily and Daptomycin 6mg/kg IV daily for outpt therapy. 12/16/17-SWING status. Continue Zosyn through 12/22/[address] Fernandez, or if antibiotics needed outpatient-Invanz 1 g IV daily and daptomycin 6 mg/kg IV daily through 2017 Consult with orthopedic team- Xray reveled degenerative changes of glenohumeral joint. Recommend PT/OT Continue with current wound care & BiPAP HS Spoke with CM regarding possible IRU for ongoing antibiotics and increased therapy for strengthening. 12/17/17-SWING status. Continue Zosyn through 12/22/[address] Fernandez, or if antibiotics needed outpatient-Invanz 1 g IV daily and daptomycin 6 mg/kg IV daily through 2017 Topical Voltaren gel for pain of right shoulder gel Follow routine lab work, hemoglobin is stable at 7.2. Bumex was decreased to 0.5 mg daily as well as potassium to 10 mEq Check chemistry panel - 12/19 Continue to work with PT/OT for strengthening. She is worried about her balance. 12/18/17-SWING status. She will have her sister bring her home C-pap. We will went to utilize this at night as she does not need BiPAP. Will continue on her baseline oxygen. Bumex 0.5 mg daily as well as potassium to 10 mEq Continue Zosyn through 12/22/[address] Fernandez, or if antibiotics needed outpatient-Invanz 1 g IV daily and daptomycin 6 mg/kg IV daily through 2017. Will likely need to get Dr. Fernandez's recommendations on Saturday12/23/17 for ongoing discharge plan as this will complete her 6 week course. Follow routine lab work, hemoglobin is stable at 7.4 Check chemistry panel are all - 12/19 Continue to work with PT/OT for strengthening. She is worried about her balance. 12/19/17 Patient doing well. Hemoglobin is stable at 7.3 Dr. Lopez debrided her ulcerations on the right foot today. Patient with neuropathy, declines pain.
[2017-12-19] MEDS: ATORVASTATIN 40 MG TABLET PO SCH (22:08)
[2017-12-19] MEDS: INSULIN DETEMIR 100unit/ml INJECTION SQ SCH (22:09)
[2017-12-19] MEDS: MIRTAZAPINE 15 MG TABLET PO SCH (22:09)
[2017-12-19] MEDS: INSULIN ASPART 100unit/ml INJECTION SQ PRN (22:10)
[2017-12-19] MEDS: ACETAMINOPHEN 500 MG TABLET PO PRN (22:10)
[2017-12-20] MEDS: D5W IV SCH ×4 (01:29→18:40)
[2017-12-20] MEDS: TAZOBACTAM IV SCH ×4 (01:29→18:40)
[2017-12-20] MEDS: PIPERACILLIN IV SCH ×4 (01:29→18:40)
[2017-12-20] MEDS: LEVOTHYROXINE 25 MCG TABLET PO SCH (05:59)
[2017-12-20] MEDS: PANTOPRAZOLE 40 MG TABLET PO SCH ×2 (06:00→18:17)
[2017-12-20] MEDS: SUCRALFATE 1gm/10ml ORAL LIQUID PO SCH ×4 (06:00→21:03)
[2017-12-20] MEDS: ASPIRIN 81 MG CHEWABLE TABLET PO SCH (08:27)
[2017-12-20] MEDS: ASCORBIC ACID 500 MG TABLET PO SCH (08:27)
[2017-12-20] MEDS: LISINOPRIL 2.5 MG TABLET PO SCH (08:28)
[2017-12-20] MEDS: CARVEDILOL 12.5 MG TABLET PO SCH ×2 (08:28→18:17)
[2017-12-20] MEDS: AMLODIPINE 2.5 MG TABLET PO SCH (08:28)
[2017-12-20] MEDS: FERROUS SULFATE 324 MG TABLET PO SCH (08:28)
[2017-12-20] MEDS: AMIODARONE 200 MG TABLET PO SCH (08:28)
[2017-12-20] MEDS: LACTOBACILLUS (15B cfu) CAPSULE PO SCH ×2 (08:28→18:17)
[2017-12-20] MEDS: BUMETANIDE 0.5 MG TABLET PO SCH (08:28)
[2017-12-20] MEDS: INSULIN ASPART 100unit/ml INJECTION SQ SCH ×3 (08:29→18:17)
[2017-12-20] MEDS: DICLOFENAC 1% TOP GEL 100gm TP SCH ×4 (08:29→21:05)
[2017-12-20] MEDS: ATORVASTATIN 40 MG TABLET PO SCH (21:03)
[2017-12-20] MEDS: INSULIN DETEMIR 100unit/ml INJECTION SQ SCH (21:03)
[2017-12-20] MEDS: MIRTAZAPINE 15 MG TABLET PO SCH (21:03)
[2017-12-21] MEDS: SALINE FLUSH 10ml SYRINGE IVF PRN (01:20)
[2017-12-21] MEDS: PIPERACILLIN IV SCH ×4 (01:21→18:40)
[2017-12-21] MEDS: D5W IV SCH ×4 (01:21→18:40)
[2017-12-21] MEDS: TAZOBACTAM IV SCH ×4 (01:21→18:40)
[2017-12-21] MEDS: LEVOTHYROXINE 25 MCG TABLET PO SCH (05:45)
[2017-12-21] MEDS: SUCRALFATE 1gm/10ml ORAL LIQUID PO SCH ×4 (05:45→21:30)
[2017-12-21] MEDS: PANTOPRAZOLE 40 MG TABLET PO SCH ×2 (05:45→17:44)
[2017-12-21] MEDS: LISINOPRIL 2.5 MG TABLET PO SCH (08:11)
[2017-12-21] MEDS: AMIODARONE 200 MG TABLET PO SCH (08:11)
[2017-12-21] MEDS: ASCORBIC ACID 500 MG TABLET PO SCH (08:11)
[2017-12-21] MEDS: ASPIRIN 81 MG CHEWABLE TABLET PO SCH (08:12)
[2017-12-21] MEDS: CARVEDILOL 12.5 MG TABLET PO SCH ×2 (08:12→17:44)
[2017-12-21] MEDS: BUMETANIDE 0.5 MG TABLET PO SCH (08:12)
[2017-12-21] MEDS: INSULIN ASPART 100unit/ml INJECTION SQ SCH ×3 (08:12→17:45)
[2017-12-21] MEDS: AMLODIPINE 2.5 MG TABLET PO SCH (08:12)
[2017-12-21] MEDS: LACTOBACILLUS (15B cfu) CAPSULE PO SCH ×2 (08:12→17:44)
[2017-12-21] MEDS: FERROUS SULFATE 324 MG TABLET PO SCH (08:12)
[2017-12-21] MEDS: DICLOFENAC 1% TOP GEL 100gm TP SCH ×4 (09:35→21:33)
[2017-12-21] MEDS ORDERED: DIPHENHYDRAMINE 2% CREAM 28gm TOP PRN (16:49)
--- NOTE | 2017-12-21 19:39 | Progress Note ---
- Date 12/21/17 Subjective: Nursing reported the patient has complained of her right shoulder itching and that there is some irritation possibly due to use of Voltaren cream. Patient reports that his shoulder has bothered her and that she's been's rubbing it/ scratching it for several days but reports that shoulder pain is so much better using the nonsteroidal cream that she would rather put up with the itching and discontinue the nonsteroidal product. Otherwise she is breathing well and feels okay-acknowledges feeling a little down the past day or 2 by her prolonged hospitalization but indicates that tomorrow will be better. Objective Vital signs: Temperature 97.7 F 12/21/17 15:05 Pulse Rate 70 12/21/17 16:00 Respiratory Rate 18 12/21/17 15:05 Blood Pressure 143/58 H 12/21/17 15:05 Pulse Oximetry 92 -2 L 12/21/17 15:05 Delightful elderly female Respirations nonlabored Mild erythema over the superior aspect of the right shoulder with very minor inflammation; soft tissue swelling of the joint is present Height/Weight/BMI: Height 1.63 m Weight 76 kg Body Mass Index 29.0 Results - Labs CBC & Chem 7: 12/19/17 03:59 12/19/17 03:59 Microbiology Results: Microbiology 12/01/17 12:08 Urine, Voided (Cc/notcc) Urine Culture - Final No Growth After 2 Days Assessment and Plan (1) Osteomyelitis of ankle or foot Problem details: Right first MT Current visit: No Status: Acute Assessment and Plan: Impression Osteomyelitis, right lower extremity wound. Diabetic foot ulcer Hypernatremia Anemia Esophageal cancer-chemotherapy, currently on hold Type II diabetes Peripheral artery disease Acute on chronic kidney disease. Congestive heart failure Atrial fibrillation. COPD-chronic oxygen use at 2 liters Hypothyroidism Plan SWING status. Generally stable; continue diclofenac topical gel for shoulder pain with addition of Benadryl cream as needed for itching. Other medical problems stable-reassess labs on Saturday at which time antibiotics should be completed. Initially planned Zosyn through 12/22/2017 but given recent reported need for additional debridement will continue Zosyn through Saturday and requests surgery reassess wounds at that time. Will likely need to get Dr. Fernandez's recommendations on Saturday12/23/17 for ongoing discharge plan as this will complete her 6 week course. Follow routine lab work, hemoglobin is stable at 7.3 Continue to work with PT/OT for strengthening. Dr. Lopez debrided her ulcerations on the right foot today. Patient with neuropathy, declines pain. - Physician Narrative Narrative: Date: 12/21/17 Time: 1932 Hospital Course Summary Disclaimer: The visit summary below is not to be considered part of the above Progress Note. Hospital Course: 11/28/17 [place] [facility] [place] 11/29/17 - Wound/Surgical note: HGB has been stable in the 7 range for a week. Continue treatment for esophageal ulceration associated with her esophageal cancer. Continue to monitor HGB. Grade 3 DFU with osteomyelitis right foot is slowly improving, showing new granulation at the perimeter and in the center. Continue the Aquacel Q3 days and prn, and ABX per Dr. Fernandez. Small ulceration medial met head area is now soft, no purulence. Re re-start the Aquacel in the area, Q3d and prn. Dry eschar wounds dorsum of toes and large unstageable dry eschar of heel will continue Betadine paint BID. Off load with foam boot. May use "surgical shoe" for short distance (like the distance to the bathroom) ambulation with PT, she will not be able to wear her regular shoe for any significant amount of walking.The surgical shoe can be put over the dressings, but that would at least get the joints and muscles moving a little. 11/29/17 Admitted yesterday to swing bed status under the care of Dr. Caraballo. Appreciate ongoing infectious disease consultation and recommendations by Dr. Afua Fernandez. Patient will continue to receive IV Zosyn for treatment of osteomyelitis of the right 1st metatarsal. Course will be complete through December 22, 2017. Lower extremity wound will continue to be followed by the wound care center and Dr. Lopez. Continue to follow routine labs periodically through her stay. She has been anemic during her acute visit, hemoglobin has been low, however, remained stable , today 7.2 Routine Bumex was placed on hold yesterday 11/28 given. Hypovolemia with elevated sodium of 151. Patient was given 1 liter of IV fluids, today sodium has improved to 145. Will monitor carefully, suspect patient well need to be placed back on Bumex in the near future for chronic diuresing. Monitor daily under weights and I/O Carefully Continue to monitor renal function carefully, creatinine today 1.5 11/30/17 Admitted yesterday to swing bed status under the care of Dr. Caraballo. Appreciate ongoing infectious disease consultation and recommendations by Dr. Afua Fernandez. Patient will continue to receive IV Zosyn for treatment of osteomyelitis of the right 1st metatarsal. Course will be complete through December 22, 2017. Lower extremity wound will continue to be followed by the wound care center and Dr. Lopez. Continue to follow routine labs periodically through her stay. She has been anemic during her acute visit, hemoglobin has been low, however, remained stable , today 7.2 Routine Bumex was placed on hold 11/28 given hypovolemia with elevated sodium. Monitor po intake on dysphagia diet. She is particularly having trouble with thickened liquids. 12/01/17 Overall, Angela appears to be doing well. She complains of urinary urgency. UA obtained revealed 50-200 WBC with 5-10 squamous epithelial cells, 1-3 transition epithelial cells and trace bacteria. Will hold off on additional antibiotic treatment until culture is available. She remains on IV Zosyn for treatment of osteomyelitis of the right 1st metatarsal. Course will be complete through December 22, 2017. Appreciate ongoing infectious disease consultation and recommendations by Dr. Afua Fernandez. Lower extremity wound will continue to be followed by the wound care center and Dr. Lopez. Weight slowly trending up. Routine Bumex was placed on hold 11/28 given hypovolemia. Continue to monitor oral intake on dysphagia diet. She is particularly having trouble with thickened liquids. Hypernatremia resolved with Bumex on hold. Anemia stable. Continue to monitor electrolytes closely. Blood sugars slightly elevated. Will increase breakfast NovoLog to 2 units and continue to monitor closely, adjusting as indicated. Continue to monitor I&O closely as well as daily weight. Will discuss restarting home Bumex with Dr. Caraballo given resolution of hypernatremia and increasing weight and blood pressure. Plan is for patient to remain on swing bed status through the course of her antibiotics. 12/02/17 UA was collected yesterday 12/01- Holding off tx until C/S resulted Requiring increased oxygen today to 4 liters Suspect she is intravascularly dry given Hypernatremia and elevated [employer]. However weight trends up and she is not requiring more oxygen- suspect edema extravascularly. Will given D5W- at 75 ml/hr for gently hydration given decreased PO fluid intake. Will Give 1 unit of PRBC given anemia. Give a one time dose of IV Bumex this afternoon following transfusion. She was previously on Bumex BID however it was held 11/28 and resumed daily this morning. Continue on IV Zosyn for treatment of osteomyelitis of the right 1st metatarsal. Course will be complete through December 22, 2017. 12/03/17 UA was collected yesterday 12/01- C/S revels no growth after 1 day - No treatment Given increased wheezing will give additional dose of Bumex 1 mg IV this afternoon Oxygen demands are slightly up from baseline Continue to follow Hgb- 7.6 today Continue on IV Zosyn for treatment of osteomyelitis of the right 1st metatarsal. Course will be complete through December 22, 2017. 12/04/17 Extra Bumex given yesterday - No wheezing on exam today. Renal function has been worsening; currently at 2.1. Weight trending up. 12/05/17 Increased subjective SOA today; will repeat CXR. Cr 2.0. Na 150. 12/06/17 CXR reviewed - improvement noted. Down to 1L per NC. Renal function stable, BUN 33 and cr 1.9. Na still high but also stable at 150. Hgb down to 7.4 but overall asymptomatic - monitor. TSH trending down after initiation of Synthroid back in September, 6.03 12/07/17 CXR reviewed - improvement noted. At baseline 2 liters oxygen. On oral bumex. Renal function stable, BUN 33 and cr 1.9. Na still high but also stable at 150. Hgb down to 7.4 but overall asymptomatic - monitor. Repeat labs Saturday. TSH trending down after initiation of Synthroid back in September,. Encouraged PT/OT. Continue Zosyn for osteomyelitis of the right 1st metatarsal through December 22, 2017. Wound care per Dr. Lopez/wound team. 12/08/17 At baseline 2 liters oxygen. On oral Bumex-repeat serum sodium. May need to decrease dose of Bumex. Renal function stable, BUN 33 and cr 1.9. Na still high but also stable at 150. Hgb down to 7.4 but overall asymptomatic - monitor. Repeat labs now and in AM. TSH trending down after initiation of Synthroid back in September,.03 Encouraged PT/OT. Unable to use blood thinners due to concern for slow GI blood losses. Continue SCDs. Continue Zosyn for osteomyelitis of the right 1st metatarsal through December 22, 2017. Wound care per Dr. Lopez/wound team. 12/09/17 Conversational dyspnea and decreased air movement with increased crackles to bases -- weight has been trending up. Will give Bumex 0.5 mg IV x1. Cont oral Bumex. Repeat CXR now. BUN 33, Cr 1.9 -- recheck in am. Hgb 8.1 - stable for pt. Increase Synthroid to 37.5 mcg. 12/10/17 Still slightly tachypneic; CXR personally reviewed showing failure with pleural eff. Will give add'l Bumex 0.5 mg IV x1 for diuresis. Monitor renal function/Na : Na stable at 148, BUN 31, Cr 2.0. 12/11/17- Overall stable. Dyspnea improved, continue on scheduled PO Bumex. 12/13/17- Medically stable. Continue with PO daily bumex. Continue PT/OT.Continue Zosyn for osteomyelitis of the right 1st metatarsal tentatively through December 22, 2017. Per Dr. Fernandez, she'd recommend Invanz 1gm IV daily and Daptomycin 6mg/kg IV daily for outpt therapy. 12/16/17-SWING status. Continue Zosyn through 12/22/[address] Fernandez, or if antibiotics needed outpatient-Invanz 1 g IV daily and daptomycin 6 mg/kg IV daily through 2017 Consult with orthopedic team- Xray reveled degenerative changes of glenohumeral joint. Recommend PT/OT Continue with current wound care & BiPAP HS Spoke with CM regarding possible IRU for ongoing antibiotics and increased therapy for strengthening. 12/17/17-SWING status. Continue Zosyn through 12/22/[address] Fernandez, or if antibiotics needed outpatient-Invanz 1 g IV daily and daptomycin 6 mg/kg IV daily through 2017 Topical Voltaren gel for pain of right shoulder gel Follow routine lab work, hemoglobin is stable at 7.2. Bumex was decreased to 0.5 mg daily as well as potassium to 10 mEq Check chemistry panel - 12/19 Continue to work with PT/OT for strengthening. She is worried about her balance. 12/18/17-SWING status. She will have her sister bring her home C-pap. We will went to utilize this at night as she does not need BiPAP. Will continue on her baseline oxygen. Bumex 0.5 mg daily as well as potassium to 10 mEq Continue Zosyn through 12/22/[address] Fernandez, or if antibiotics needed outpatient-Invanz 1 g IV daily and daptomycin 6 mg/kg IV daily through 2017. Will likely need to get Dr. Fernandez's recommendations on Saturday12/23/17 for ongoing discharge plan as this will complete her 6 week course. Follow routine lab work, hemoglobin is stable at 7.4 Check chemistry panel are all - 12/19 Continue to work with PT/OT for strengthening. She is worried about her balance. 12/19/17 Patient doing well. Hemoglobin is stable at 7.3 Dr. Lopez debrided her ulcerations on the right foot today. Patient with neuropathy, declines pain. 12/21/17 Generally stable; continue diclofenac topical gel for shoulder pain with addition of Benadryl cream as needed for itching. Other medical problems stable-reassess labs on Saturday at which time antibiotics should be completed. Initially planned Zosyn through 12/22/2017 but given recent reported need for additional debridement will continue Zosyn through Saturday and requests surgery reassess wounds at that time.
[2017-12-21] MEDS: INSULIN DETEMIR 100unit/ml INJECTION SQ SCH (21:31)
[2017-12-21] MEDS: MIRTAZAPINE 15 MG TABLET PO SCH (21:31)
[2017-12-21] MEDS: ATORVASTATIN 40 MG TABLET PO SCH (21:31)
[2017-12-21] MEDS: INSULIN ASPART 100unit/ml INJECTION SQ PRN (22:12)
[2017-12-22] MEDS: SALINE FLUSH 10ml SYRINGE IVF PRN ×2 (01:00→08:40)
[2017-12-22] MEDS: D5W IV SCH ×4 (01:01→20:10)
[2017-12-22] MEDS: PIPERACILLIN IV SCH ×4 (01:01→20:10)
[2017-12-22] MEDS: TAZOBACTAM IV SCH ×4 (01:01→20:10)
[2017-12-22] MEDS: NS FLUSH BAG 500ml IV PRN (01:02)
[2017-12-22] MEDS: PANTOPRAZOLE 40 MG TABLET PO SCH ×2 (06:48→17:20)
[2017-12-22] MEDS: SUCRALFATE 1gm/10ml ORAL LIQUID PO SCH ×4 (06:48→20:10)
[2017-12-22] MEDS: LEVOTHYROXINE 25 MCG TABLET PO SCH (06:48)
[2017-12-22] MEDS: INSULIN ASPART 100unit/ml INJECTION SQ SCH ×3 (08:38→18:10)
[2017-12-22] MEDS: FERROUS SULFATE 324 MG TABLET PO SCH (08:39)
[2017-12-22] MEDS: BUMETANIDE 0.5 MG TABLET PO SCH (08:39)
[2017-12-22] MEDS: CARVEDILOL 12.5 MG TABLET PO SCH ×2 (08:39→17:18)
[2017-12-22] MEDS: ASCORBIC ACID 500 MG TABLET PO SCH (08:39)
[2017-12-22] MEDS: AMLODIPINE 2.5 MG TABLET PO SCH (08:40)
[2017-12-22] MEDS: AMIODARONE 200 MG TABLET PO SCH (08:40)
[2017-12-22] MEDS: LISINOPRIL 2.5 MG TABLET PO SCH (08:40)
[2017-12-22] MEDS: LACTOBACILLUS (15B cfu) CAPSULE PO SCH ×2 (08:40→17:19)
[2017-12-22] MEDS: ASPIRIN 81 MG CHEWABLE TABLET PO SCH (08:40)
[2017-12-22] MEDS: DICLOFENAC 1% TOP GEL 100gm TP SCH ×4 (08:46→20:11)
[2017-12-22] MEDS ORDERED: HYDROCORTISONE 1% CREAM 28.35gm TOP PRN (10:21)
--- NOTE | 2017-12-22 10:21 | Progress Note ---
- Date 12/22/17 Subjective: Angela is doing well overall; she reported that she might leave the hospital tomorrow. She'd love to go home but isn't "quite there" as far as her mobility goes and doesn't want her sister Dayanna to have to do more to take care of her or risk her safety. She is planning on going on 3 walks today. She denies SOA or chest pain. She denies abdominal pain or nausea. Right shoulder pain is fair but she states the skin feels "rough" and is a little itchy. Objective Vital signs: Temperature 96 F L 12/22/17 08:00 Pulse Rate 66 12/22/17 08:00 Respiratory Rate 14 12/22/17 08:00 Blood Pressure 153/66 H 12/22/17 08:00 Pulse Oximetry 95 12/22/17 08:00 Height/Weight/BMI: Height 1.63 m Weight 75.5 kg Body Mass Index 29.0 - Constitutional Present: no acute distress, well nourished, well developed - Routine HEENT Exam Head: Present: normocephalic Eye: Present: PERRL. Absent: conjunctival icterus, scleral injection ENT: Present: mucous membranes moist, oropharynx clear - Routine Respiratory Exam Present: decreased breath sounds (b/l bases) - Routine Cardiovascular Exam Present: RRR, S1, S2 - Routine Abdominal Exam Present: soft, normoactive bowel sounds, non distended, non tender - Routine Extremities Exam Present: no edema - Routine Skin Exam Present: intact, dry, warm, rash (mild papular rash to right shoulder) - Routine Neurological Exam Present: alert, oriented X3, CN II-XII intact, moving all extremities, vision grossly intact, hearing grossly intact, normal speech. Absent: altered mental status, facial asymmetry - Routine Psychiatric Exam Present: normal affect, normal thought process, cooperative Results - Labs CBC & Chem 7: 12/19/17 03:59 12/19/17 03:59 Microbiology Results: Microbiology 12/01/17 12:08 Urine, Voided (Cc/notcc) Urine Culture - Final No Growth After 2 Days Assessment and Plan (1) Osteomyelitis of ankle or foot Problem details: Right first MT Current visit: No Status: Acute Assessment and Plan: Impression Osteomyelitis, right lower extremity wound. Diabetic foot ulcer Hypernatremia Anemia Esophageal cancer-chemotherapy, currently on hold Type II diabetes Peripheral artery disease Acute on chronic kidney disease. Congestive heart failure Atrial fibrillation. COPD-chronic oxygen use at 2 liters Hypothyroidism Plan SWING status. Will add PRN hydrocortisone cream for rash to right shoulder in addition to Benadryl cream. Labs scheduled for tomorrow am. Anticipate additional recommendations from Dr. Fernandez and Dr. Lopez tomorrow. Continue Zosyn. Resuscitation Status: Do Not Resuscitate - Physician Narrative Narrative: Date: 12/22/17 Time: 1015 Hospital Course Summary Disclaimer: The visit summary below is not to be considered part of the above Progress Note. Hospital Course: 11/28/17 Admitted to Swing bed at [facility] [place] for continuation of IV antibiotics. 11/29/17 - Wound/Surgical note: HGB has been stable in the 7 range for a week. Continue treatment for esophageal ulceration associated with her esophageal cancer. Continue to monitor HGB. Grade 3 DFU with osteomyelitis right foot is slowly improving, showing new granulation at the perimeter and in the center. Continue the Aquacel Q3 days and prn, and ABX per Dr. Fernandez. Small ulceration medial met head area is now soft, no purulence. Re re-start the Aquacel in the area, Q3d and prn. Dry eschar wounds dorsum of toes and large unstageable dry eschar of heel will continue Betadine paint BID. Off load with foam boot. May use "surgical shoe" for short distance (like the distance to the bathroom) ambulation with PT, she will not be able to wear her regular shoe for any significant amount of walking.The surgical shoe can be put over the dressings, but that would at least get the joints and muscles moving a little. 11/29/17 Admitted yesterday to swing bed status under the care of Dr. Caraballo. Appreciate ongoing infectious disease consultation and recommendations by Dr. Afua Fernandez. Patient will continue to receive IV Zosyn for treatment of osteomyelitis of the right 1st metatarsal. Course will be complete through December 22, 2017. Lower extremity wound will continue to be followed by the wound care center and Dr. Lopez. Continue to follow routine labs periodically through her stay. She has been anemic during her acute visit, hemoglobin has been low, however, remained stable , today 7.2 Routine Bumex was placed on hold yesterday 11/28 given. Hypovolemia with elevated sodium of 151. Patient was given 1 liter of IV fluids, today sodium has improved to 145. Will monitor carefully, suspect patient well need to be placed back on Bumex in the near future for chronic diuresing. Monitor daily under weights and I/O Carefully Continue to monitor renal function carefully, creatinine today 1.5 11/30/17 Admitted yesterday to swing bed status under the care of Dr. Caraballo. Appreciate ongoing infectious disease consultation and recommendations by Dr. Afua Fernandez. Patient will continue to receive IV Zosyn for treatment of osteomyelitis of the right 1st metatarsal. Course will be complete through December 22, 2017. Lower extremity wound will continue to be followed by the wound care center and Dr. Lopez. Continue to follow routine labs periodically through her stay. She has been anemic during her acute visit, hemoglobin has been low, however, remained stable , today 7.2 Routine Bumex was placed on hold 11/28 given hypovolemia with elevated sodium. Monitor po intake on dysphagia diet. She is particularly having trouble with thickened liquids. 12/01/17 Overall, Angela appears to be doing well. She complains of urinary urgency. UA obtained revealed 50-200 WBC with 5-10 squamous epithelial cells, 1-3 transition epithelial cells and trace bacteria. Will hold off on additional antibiotic treatment until culture is available. She remains on IV Zosyn for treatment of osteomyelitis of the right 1st metatarsal. Course will be complete through December 22, 2017. Appreciate ongoing infectious disease consultation and recommendations by Dr. Afua Fernandez. Lower extremity wound will continue to be followed by the wound care center and Dr. Lopez. Weight slowly trending up. Routine Bumex was placed on hold 11/28 given hypovolemia. Continue to monitor oral intake on dysphagia diet. She is particularly having trouble with thickened liquids. Hypernatremia resolved with Bumex on hold. Anemia stable. Continue to monitor electrolytes closely. Blood sugars slightly elevated. Will increase breakfast NovoLog to 2 units and continue to monitor closely, adjusting as indicated. Continue to monitor I&O closely as well as daily weight. Will discuss restarting home Bumex with Dr. Caraballo given resolution of hypernatremia and increasing weight and blood pressure. Plan is for patient to remain on swing bed status through the course of her antibiotics. 12/02/17 UA was collected yesterday 12/01- Holding off tx until C/S resulted Requiring increased oxygen today to 4 liters Suspect she is intravascularly dry given Hypernatremia and elevated [employer]. However weight trends up and she is not requiring more oxygen- suspect edema extravascularly. Will given D5W- at 75 ml/hr for gently hydration given decreased PO fluid intake. Will Give 1 unit of PRBC given anemia. Give a one time dose of IV Bumex this afternoon following transfusion. She was previously on Bumex BID however it was held 11/28 and resumed daily this morning. Continue on IV Zosyn for treatment of osteomyelitis of the right 1st metatarsal. Course will be complete through December 22, 2017. 12/03/17 UA was collected yesterday 12/01- C/S revels no growth after 1 day - No treatment Given increased wheezing will give additional dose of Bumex 1 mg IV this afternoon Oxygen demands are slightly up from baseline Continue to follow Hgb- 7.6 today Continue on IV Zosyn for treatment of osteomyelitis of the right 1st metatarsal. Course will be complete through December 22, 2017. 12/04/17 Extra Bumex given yesterday - No wheezing on exam today. Renal function has been worsening; currently at 2.1. Weight trending up. 12/05/17 Increased subjective SOA today; will repeat CXR. Cr 2.0. Na 150. 12/06/17 CXR reviewed - improvement noted. Down to 1L per NC. Renal function stable, BUN 33 and cr 1.9. Na still high but also stable at 150. Hgb down to 7.4 but overall asymptomatic - monitor. TSH trending down after initiation of Synthroid back in September,.12/07/17 CXR reviewed - improvement noted. At baseline 2 liters oxygen. On oral bumex. Renal function stable, BUN 33 and cr 1.9. Na still high but also stable at 150. Hgb down to 7.4 but overall asymptomatic - monitor. Repeat labs Saturday. TSH trending down after initiation of Synthroid back in September,. Encouraged PT/OT. Continue Zosyn for osteomyelitis of the right 1st metatarsal through December 22, 2017. Wound care per Dr. Lopez/wound team. 12/08/17 At baseline 2 liters oxygen. On oral Bumex-repeat serum sodium. May need to decrease dose of Bumex. Renal function stable, BUN 33 and cr 1.9. Na still high but also stable at 150. Hgb down to 7.4 but overall asymptomatic - monitor. Repeat labs now and in AM. TSH trending down after initiation of Synthroid back in September, 6.03 Encouraged PT/OT. Unable to use blood thinners due to concern for slow GI blood losses. Continue SCDs. Continue Zosyn for osteomyelitis of the right 1st metatarsal through December 22, 2017. Wound care per Dr. Lopez/wound team. 12/09/17 Conversational dyspnea and decreased air movement with increased crackles to bases -- weight has been trending up. Will give Bumex 0.5 mg IV x1. Cont oral Bumex. Repeat CXR now. BUN 33, Cr 1.9 -- recheck in am. Hgb 8.1 - stable for pt. Increase Synthroid to 37.5 mcg. 12/10/17 Still slightly tachypneic; CXR personally reviewed showing failure with pleural eff. Will give add'l Bumex 0.5 mg IV x1 for diuresis. Monitor renal function/Na : Na stable at 148, BUN 31, Cr 2.0. 12/11/17- Overall stable. Dyspnea improved, continue on scheduled PO Bumex. 12/13/17- Medically stable. Continue with PO daily bumex. Continue PT/OT.Continue Zosyn for osteomyelitis of the right 1st metatarsal tentatively through December 22, 2017. Per Dr. Fernandez, she'd recommend Invanz 1gm IV daily and Daptomycin 6mg/kg IV daily for outpt therapy. 12/16/17-SWING status. Continue Zosyn through 12/22/[address] Fernandez, or if antibiotics needed outpatient-Invanz 1 g IV daily and daptomycin 6 mg/kg IV daily through 2017 Consult with orthopedic team- Xray reveled degenerative changes of glenohumeral joint. Recommend PT/OT Continue with current wound care & BiPAP HS Spoke with CM regarding possible IRU for ongoing antibiotics and increased therapy for strengthening. 12/17/17-SWING status. Continue Zosyn through 12/22/[address] Fernandez, or if antibiotics needed outpatient-Invanz 1 g IV daily and daptomycin 6 mg/kg IV daily through 2017 Topical Voltaren gel for pain of right shoulder gel Follow routine lab work, hemoglobin is stable at 7.2. Bumex was decreased to 0.5 mg daily as well as potassium to 10 mEq Check chemistry panel - 12/19 Continue to work with PT/OT for strengthening. She is worried about her balance. 12/18/17-SWING status. She will have her sister bring her home C-pap. We will went to utilize this at night as she does not need BiPAP. Will continue on her baseline oxygen. Bumex 0.5 mg daily as well as potassium to 10 mEq Continue Zosyn through 12/22/[address] Fernandez, or if antibiotics needed outpatient-Invanz 1 g IV daily and daptomycin 6 mg/kg IV daily through 2017. Will likely need to get Dr. Fernandez's recommendations on Saturday12/23/17 for ongoing discharge plan as this will complete her 6 week course. Follow routine lab work, hemoglobin is stable at 7.4 Check chemistry panel are all - 12/19 Continue to work with PT/OT for strengthening. She is worried about her balance. 12/19/17 Patient doing well. Hemoglobin is stable at 7.3 Dr. Lopez debrided her ulcerations on the right foot today. Patient with neuropathy, declines pain. 12/21/17 Generally stable; continue diclofenac topical gel for shoulder pain with addition of Benadryl cream as needed for itching. Other medical problems stable-reassess labs on Saturday at which time antibiotics should be completed. Initially planned Zosyn through 12/22/2017 but given recent reported need for additional debridement will continue Zosyn through Saturday and requests surgery reassess wounds at that time.
[2017-12-22] MEDS: MIRTAZAPINE 15 MG TABLET PO SCH (20:11)
[2017-12-22] MEDS: INSULIN DETEMIR 100unit/ml INJECTION SQ SCH (20:21)
[2017-12-22] MEDS: ATORVASTATIN 40 MG TABLET PO SCH (20:21)
[2017-12-22] MEDS: INSULIN ASPART 100unit/ml INJECTION SQ PRN (20:25)
[2017-12-22] MEDS: ACETAMINOPHEN 500 MG TABLET PO PRN (22:21)
[2017-12-23] MEDS: PIPERACILLIN IV SCH ×2 (00:34→06:09)
[2017-12-23] MEDS: TAZOBACTAM IV SCH ×2 (00:34→06:09)
[2017-12-23] MEDS: D5W IV SCH ×2 (00:34→06:09)
[2017-12-23] MEDS: SUCRALFATE 1gm/10ml ORAL LIQUID PO SCH ×4 (05:30→21:29)
[2017-12-23] MEDS: PANTOPRAZOLE 40 MG TABLET PO SCH ×2 (05:31→17:13)
[2017-12-23] MEDS: LEVOTHYROXINE 25 MCG TABLET PO SCH (05:31)
[2017-12-23] MEDS: AMLODIPINE 2.5 MG TABLET PO SCH (08:02)
[2017-12-23] MEDS: LACTOBACILLUS (15B cfu) CAPSULE PO SCH ×2 (08:02→17:13)
[2017-12-23] MEDS: ASCORBIC ACID 500 MG TABLET PO SCH (08:02)
[2017-12-23] MEDS: LISINOPRIL 2.5 MG TABLET PO SCH (08:02)
[2017-12-23] MEDS: AMIODARONE 200 MG TABLET PO SCH (08:02)
[2017-12-23] MEDS: DICLOFENAC 1% TOP GEL 100gm TP SCH ×4 (08:02→21:31)
[2017-12-23] MEDS: INSULIN ASPART 100unit/ml INJECTION SQ SCH ×3 (08:02→17:14)
[2017-12-23] MEDS: BUMETANIDE 0.5 MG TABLET PO SCH (08:02)
[2017-12-23] MEDS: FERROUS SULFATE 324 MG TABLET PO SCH (08:02)
[2017-12-23] MEDS: CARVEDILOL 12.5 MG TABLET PO SCH ×2 (08:03→17:14)
[2017-12-23] MEDS: SALINE FLUSH 10ml SYRINGE IVF PRN (08:03)
[2017-12-23] MEDS: ASPIRIN 81 MG CHEWABLE TABLET PO SCH (08:07)
--- NOTE | 2017-12-23 09:30 | General Surgery Progress Note ---
Subjective Narrative: Denies pain in the right foot. Wounds are stable. She states pills seem to get stuck proximal esophagus but eventually go down. She states the thickened liquids are "a good thing." States food is "ok as long as I eat slow." She anticipates DC to care facility, possible this week, it will depend on ABX recommendations. - Vital Signs Last Vital Signs Temp 95.8 F L 12/23/17 07:40 Pulse 75 12/23/17 07:40 Resp 18 12/23/17 07:40 BP 169/67 H 12/23/17 07:40 Pulse Ox 99 12/23/17 07:40 - Laboratory Result Diagrams: 12/23/17 03:50 12/23/17 03:50 - Abnormal Exam Cardiovascular: murmur Abdominal: obese Skin: Right foot medial wound with granulation and creamy exudate. Toes right foot with creamy exudate. Right heel dry eschar. - Normal Exam General: awake, alert, oriented, no acute distress Cardiovascular: regular rate Respiratory: no labored breathing (with supplemental oxygen by NC) Abdominal: soft, non-tender Psychiatric: normal affect Neurological: CN 2-12 grossly intact Assessment and Plan (1) Osteomyelitis of ankle or foot Current Visit: No Status: Acute Problem details: Right first MT (2) Unstageable pressure ulcer of right heel Current Visit: Yes Status: Acute (3) Esophageal cancer Current Visit: Yes Status: Chronic Qualifiers: Malignant neoplasm of esophagus location: lower third Qualified Code(s): C15.5 - Malignant neoplasm of lower third of esophagus (4) Esophageal ulcer with bleeding Current Visit: Yes Status: Resolved (5) Acute anemia Current Visit: No Status: Chronic Plan: Continue with Aquacel AG and Mepilex to right medial foot wound and right toes. Change Q3d. Continue Betadine pain to heel BID and let dry before placing soc. Off load heel particularly when in bed. Follow up in wound clinic 1-2 weeks after discharge. Wound orders placed in discharge Plan. Hospital Course Summary Disclaimer: The visit summary below is not to be considered part of the above Progress Note. Hospital Course: 11/28/17 Admitted to Swing bed at [facility] [place] [facility] [place] continuation of IV antibiotics. 11/29/17 - Wound/Surgical note: HGB has been stable in the 7 range for a week. Continue treatment for esophageal ulceration associated with her esophageal cancer. Continue to monitor HGB. Grade 3 DFU with osteomyelitis right foot is slowly improving, showing new granulation at the perimeter and in the center. Continue the Aquacel Q3 days and prn, and ABX per Dr. Fernandez. Small ulceration medial met head area is now soft, no purulence. Re re-start the Aquacel in the area, Q3d and prn. Dry eschar wounds dorsum of toes and large unstageable dry eschar of heel will continue Betadine paint BID. Off load with foam boot. May use "surgical shoe" for short distance (like the distance to the bathroom) ambulation with PT, she will not be able to wear her regular shoe for any significant amount of walking.The surgical shoe can be put over the dressings, but that would at least get the joints and muscles moving a little. 11/29/17 Admitted yesterday to swing bed status under the care of Dr. Caraballo. Appreciate ongoing infectious disease consultation and recommendations by Dr. Afua Fernandez. Patient will continue to receive IV Zosyn for treatment of osteomyelitis of the right 1st metatarsal. Course will be complete through December 22, 2017. Lower extremity wound will continue to be followed by the wound care center and Dr. Lopez. Continue to follow routine labs periodically through her stay. She has been anemic during her acute visit, hemoglobin has been low, however, remained stable , today 7.2 Routine Bumex was placed on hold yesterday 11/28 given. Hypovolemia with elevated sodium of 151. Patient was given 1 liter of IV fluids, today sodium has improved to 145. Will monitor carefully, suspect patient well need to be placed back on Bumex in the near future for chronic diuresing. Monitor daily under weights and I/O Carefully Continue to monitor renal function carefully, creatinine today 1.5 11/30/17 Admitted yesterday to swing bed status under the care of Dr. Caraballo. Appreciate ongoing infectious disease consultation and recommendations by Dr. Afua Fernandez. Patient will continue to receive IV Zosyn for treatment of osteomyelitis of the right 1st metatarsal. Course will be complete through December 22, 2017. Lower extremity wound will continue to be followed by the wound care center and Dr. Lopez. Continue to follow routine labs periodically through her stay. She has been anemic during her acute visit, hemoglobin has been low, however, remained stable , today 7.2 Routine Bumex was placed on hold 11/28 given hypovolemia with elevated sodium. Monitor po intake on dysphagia diet. She is particularly having trouble with thickened liquids. 12/01/17 Overall, Angela appears to be doing well. She complains of urinary urgency. UA obtained revealed 50-200 WBC with 5-10 squamous epithelial cells, 1-3 transition epithelial cells and trace bacteria. Will hold off on additional antibiotic treatment until culture is available. She remains on IV Zosyn for treatment of osteomyelitis of the right 1st metatarsal. Course will be complete through December 22, 2017. Appreciate ongoing infectious disease consultation and recommendations by Dr. Afua Fernandez. Lower extremity wound will continue to be followed by the wound care center and Dr. Lopez. Weight slowly trending up. Routine Bumex was placed on hold 11/28 given hypovolemia. Continue to monitor oral intake on dysphagia diet. She is particularly having trouble with thickened liquids. Hypernatremia resolved with Bumex on hold. Anemia stable. Continue to monitor electrolytes closely. Blood sugars slightly elevated. Will increase breakfast NovoLog to 2 units and continue to monitor closely, adjusting as indicated. Continue to monitor I&O closely as well as daily weight. Will discuss restarting home Bumex with Dr. Caraballo given resolution of hypernatremia and increasing weight and blood pressure. Plan is for patient to remain on swing bed status through the course of her antibiotics. 12/02/17 UA was collected yesterday 12/01- Holding off tx until C/S resulted Requiring increased oxygen today to 4 liters Suspect she is intravascularly dry given Hypernatremia and elevated [employer]. However weight trends up and she is not requiring more oxygen- suspect edema extravascularly. Will given D5W- at 75 ml/hr for gently hydration given decreased PO fluid intake. Will Give 1 unit of PRBC given anemia. Give a one time dose of IV Bumex this afternoon following transfusion. She was previously on Bumex BID however it was held 11/28 and resumed daily this morning. Continue on IV Zosyn for treatment of osteomyelitis of the right 1st metatarsal. Course will be complete through December 22, 2017. 12/03/17 UA was collected yesterday 12/01- C/S revels no growth after 1 day - No treatment Given increased wheezing will give additional dose of Bumex 1 mg IV this afternoon Oxygen demands are slightly up from baseline Continue to follow Hgb- 7.6 today Continue on IV Zosyn for treatment of osteomyelitis of the right 1st metatarsal. Course will be complete through December 22, 2017. 12/04/17 Extra Bumex given yesterday - No wheezing on exam today. Renal function has been worsening; currently at 2.1. Weight trending up. 12/05/17 Increased subjective SOA today; will repeat CXR. Cr 2.0. Na 150. 12/06/17 CXR reviewed - improvement noted. Down to 1L per NC. Renal function stable, BUN 33 and cr 1.9. Na still high but also stable at 150. Hgb down to 7.4 but overall asymptomatic - monitor. TSH trending down after initiation of Synthroid back in September, 6.03 12/07/17 CXR reviewed - improvement noted. At baseline 2 liters oxygen. On oral bumex. Renal function stable, BUN 33 and cr 1.9. Na still high but also stable at 150. Hgb down to 7.4 but overall asymptomatic - monitor. Repeat labs Saturday. TSH trending down after initiation of Synthroid back in September, 6.03 Encouraged PT/OT. Continue Zosyn for osteomyelitis of the right 1st metatarsal through December 22, 2017. Wound care per Dr. Lopez/wound team. 12/08/17 At baseline 2 liters oxygen. On oral Bumex-repeat serum sodium. May need to decrease dose of Bumex. Renal function stable, BUN 33 and cr 1.9. Na still high but also stable at 150. Hgb down to 7.4 but overall asymptomatic - monitor. Repeat labs now and in AM. TSH trending down after initiation of Synthroid back in September, 6.03 Encouraged PT/OT. Unable to use blood thinners due to concern for slow GI blood losses. Continue SCDs. Continue Zosyn for osteomyelitis of the right 1st metatarsal through December 22, 2017. Wound care per Dr. Lopez/wound team. 12/09/17 Conversational dyspnea and decreased air movement with increased crackles to bases -- weight has been trending up. Will give Bumex 0.5 mg IV x1. Cont oral Bumex. Repeat CXR now. BUN 33, Cr 1.9 -- recheck in am. Hgb 8.1 - stable for pt. Increase Synthroid to 37.5 mcg. 12/10/17 Still slightly tachypneic; CXR personally reviewed showing failure with pleural eff. Will give add'l Bumex 0.5 mg IV x1 for diuresis. Monitor renal function/Na : Na stable at 148, BUN 31, Cr 2.0. 12/11/17- Overall stable. Dyspnea improved, continue on scheduled PO Bumex. 12/13/17- Medically stable. Continue with PO daily bumex. Continue PT/OT.Continue Zosyn for osteomyelitis of the right 1st metatarsal tentatively through December 22, 2017. Per Dr. Fernandez, she'd recommend Invanz 1gm IV daily and Daptomycin 6mg/kg IV daily for outpt therapy. 12/16/17-SWING status. Continue Zosyn through 12/22/[address] Fernandez, or if antibiotics needed outpatient-Invanz 1 g IV daily and daptomycin 6 mg/kg IV daily through 2017 Consult with orthopedic team- Xray reveled degenerative changes of glenohumeral joint. Recommend PT/OT Continue with current wound care & BiPAP HS Spoke with CM regarding possible IRU for ongoing antibiotics and increased therapy for strengthening. 12/17/17-SWING status. Continue Zosyn through 12/22/[address] Fernandez, or if antibiotics needed outpatient-Invanz 1 g IV daily and daptomycin 6 mg/kg IV daily through 2017 Topical Voltaren gel for pain of right shoulder gel Follow routine lab work, hemoglobin is stable at 7.2. Bumex was decreased to 0.5 mg daily as well as potassium to 10 mEq Check chemistry panel - 12/19 Continue to work with PT/OT for strengthening. She is worried about her balance. 12/18/17-SWING status. She will have her sister bring her home C-pap. We will went to utilize this at night as she does not need BiPAP. Will continue on her baseline oxygen. Bumex 0.5 mg daily as well as potassium to 10 mEq Continue Zosyn through 12/22/[address] Fernandez, or if antibiotics needed outpatient-Invanz 1 g IV daily and daptomycin 6 mg/kg IV daily through 2017. Will likely need to get Dr. Fernandez's recommendations on Saturday12/23/17 for ongoing discharge plan as this will complete her 6 week course. Follow routine lab work, hemoglobin is stable at 7.4 Check chemistry panel are all - 12/19 Continue to work with PT/OT for strengthening. She is worried about her balance. 12/19/17 Patient doing well. Hemoglobin is stable at 7.3 Dr. Lopez debrided her ulcerations on the right foot today. Patient with neuropathy, declines pain. 12/21/17 Generally stable; continue diclofenac topical gel for shoulder pain with addition of Benadryl cream as needed for itching. Other medical problems stable-reassess labs on Saturday at which time antibiotics should be completed. Initially planned Zosyn through 12/22/2017 but given recent reported need for additional debridement will continue Zosyn through Saturday and requests surgery reassess wounds at that time.
--- NOTE | 2017-12-23 10:24 | ID Progress Note ---
Subjective Date: 12/23/17 Subjective: Angela reports that she's doing well. I saw her up walking in the halls with PT. She denies any fever, chills, nausea. Still reports some loose stools. She reports that she's scheduled to go to [place] soon. Dr. Lopez's note reviewed. There was some necrotic tendon noted R 2nd toe and some of this /was debrided 12/18. Exam Vital Signs: Temperature 95.8 F L 12/23/17 07:40 Pulse Rate 75 12/23/17 07:40 Respiratory Rate 18 12/23/17 07:40 Blood Pressure 169/67 H 12/23/17 07:40 Pulse Oximetry 99 12/23/17 07:40 Height/Weight/BMI: Height 1.63 m Weight 75.5 kg Body Mass Index 29.0 - Constitutional Present: no acute distress, well nourished, well developed - Routine HEENT Exam Head: Present: normocephalic, atraumatic Eye: Present: EOMI, PERRL ENT: Present: mucous membranes moist, oropharynx clear Comments: dentures in place - Routine Neck Exam Present: supple - Routine Respiratory Exam Present: CTA bilaterally Comments: On 3L O2 - Routine Cardiovascular Exam Present: RRR - Routine Abdominal Exam Present: soft, normoactive bowel sounds, non distended, non tender - Routine Exam Comments: no orourke - Routine Extremities Exam Present: edema (1+ edema LEs). Absent: cyanosis, clubbing - Routine Skin Exam Absent: rash Comments: PICC site OK. R 2nd toe wound appears mostly clean, this encompasses most of her toe. Wound over R medial foot appears smaller, and is clean. - Routine Neurological Exam Present: alert, oriented X3, CN II-XII intact, normal speech. Absent: motor deficit - Routine Psychiatric Exam Present: normal affect, normal thought process Results - Labs CBC & Chem 7: 12/23/17 03:50 12/23/17 03:50 Microbiology Results: Microbiology 12/01/17 12:08 Urine, Voided (Cc/notcc) Urine Culture - Final No Growth After 2 Days Impression: Sepsis secondary to skin/soft tissue source Diabetic foot infection R foot with cellulitis and osteomyelitis. Wound culture 11/10/17 with Enterococcus, Achromobacter, and skin chad. S/p debridement down to bone of 1st MT on 11/15/17. PVD s/p R SFA atherectomy/[employer] 10/31/17 Recent syncopal episode anemia, macrocytic Diarrhea, suspect secondary to Zosyn (C. diff negative 11/12/17) s/p EGD 11/12 with ulcer near esophageal mass, biopsy showed adenocarcinoma H/o Diabetic foot wound R 1st MT head, wound culture with MSSA, and Proteus. Bone scan 05/22/17 with abnormal uptake R 1st MT head consistent with osteomyelitis. S/p bone biopsy R 1st MT head 06/05/17 which was negative for osteomyelitis. Wound was noted to be healed on 09/25/17 and her cephalexin was stopped. Recurrent esophageal cancer, on weekly chemotherapy per Dr. Newman. H/o sepsis/septicemia with Pantoea species 2016, s/p Port removal 02/28/17. DM II, with peripheral neuropathy CKD stage III. COPD-chronic oxygen use at 2 liters Chronic atrial fibrillation s/p pacemaker implantation Hypertension GERD Hyperlipidemia Obstructive sleep apnea History of anemia and GI bleed. Allergies to cipro and sulfa (rash). Recommendation: She has completed 6 weeks of Zosyn as of yesterday (12/22). I would recommend changing to oral Amoxicillin 500mg po TID or 875mg po BID for another 2-4 weeks for her continued wounds. I would like to see her in follow up in the wound clinic in 2 weeks from hospital discharge.
[2017-12-23] MEDS: AMOXICILLIN 500 MG CAPSULE PO SCH ×2 (11:28→21:29)
[2017-12-23] MEDS: INSULIN DETEMIR 100unit/ml INJECTION SQ SCH (21:29)
[2017-12-23] MEDS: ATORVASTATIN 40 MG TABLET PO SCH (21:30)
[2017-12-23] MEDS: MIRTAZAPINE 15 MG TABLET PO SCH (21:30)
[2017-12-23] MEDS: ACETAMINOPHEN 500 MG TABLET PO PRN (21:41)
[2017-12-24] MEDS: PANTOPRAZOLE 40 MG TABLET PO SCH (06:11)
[2017-12-24] MEDS: LEVOTHYROXINE 25 MCG TABLET PO SCH (06:12)
[2017-12-24] MEDS: SUCRALFATE 1gm/10ml ORAL LIQUID PO SCH ×2 (06:12→11:30)
[2017-12-24 07:23] VITALS: BP 152/69; RESP 22; TEMP 96.5; O2SAT 99
[2017-12-24] MEDS: AMOXICILLIN 500 MG CAPSULE PO SCH (08:17)
[2017-12-24] MEDS: LACTOBACILLUS (15B cfu) CAPSULE PO SCH (08:17)
[2017-12-24] MEDS: AMLODIPINE 2.5 MG TABLET PO SCH (08:17)
[2017-12-24] MEDS: ASPIRIN 81 MG CHEWABLE TABLET PO SCH (08:18)
[2017-12-24] MEDS: FERROUS SULFATE 324 MG TABLET PO SCH (08:18)
[2017-12-24] MEDS: ASCORBIC ACID 500 MG TABLET PO SCH (08:18)
[2017-12-24] MEDS: CARVEDILOL 12.5 MG TABLET PO SCH (08:18)
[2017-12-24] MEDS: BUMETANIDE 0.5 MG TABLET PO SCH (08:18)
[2017-12-24] MEDS: AMIODARONE 200 MG TABLET PO SCH (08:19)
[2017-12-24] MEDS: LISINOPRIL 2.5 MG TABLET PO SCH (08:19)
[2017-12-24] MEDS: INSULIN ASPART 100unit/ml INJECTION SQ SCH ×2 (08:20→11:29)
[2017-12-24] MEDS: DICLOFENAC 1% TOP GEL 100gm TP SCH ×2 (08:20→13:32)
[2017-12-24 08:53] VITALS: PULSE 65
--- NOTE | 2017-12-24 11:33 | Discharge Summary ---
Discharge Information Date of admission: 11/28/17 14:20 Anticipated date of discharge: 12/24/17 Attending Physician: Vishnu Casiano MD Primary care physician: Rachel Dietz DO Consults: Consulting Provider: Nandini Fernandez Reason For Exam: Infected foot wound Recommendations: She has completed 6 weeks of Zosyn as of yesterday (12/22). I would recommend changing to oral Amoxicillin for another 2-4 weeks for her continued wounds. I would like to see her in follow up in the wound clinic in 2 weeks from hospital discharge. Consulting Provider: Phil Lopez Reason For Exam: GI bleed Recommendations: Continue treatment for esophageal ulceration associated with her esophageal cancer. Continue to monitor HGB. Wound Vein Clinic Consult Reason for consultation: Wounds right foot. Recommendations: Continue with Aquacel AG and Mepilex to right medial foot wound and right toes. Change Q3d. Continue Betadine pain to heel BID and let dry before placing sock. Off load heel particularly when in bed. Follow up in wound clinic 1-2 weeks after discharge. Consulting Provider: Ethan Collier Reason For Exam: Rt shoulder pain Recommendations: Continue OT/PT to improve mobility. Voltaren gel 1% 2 gm QID for chronic rotator cuff arthropathy and osteoarthritis. Could consider corticosteroid injection when patient is no longer on IV antibiotics for osteomyelitis. - Discharge Diagnosis (1) Osteomyelitis of ankle or foot Status: Acute Discharge diagnosis Osteomyelitis, right lower extremity wound Associated conditions and complications Diabetic foot ulcer Hypernatremia (not POA) Anemia Esophageal cancer-chemotherapy, currently on hold Type II diabetes Peripheral artery disease Acute on chronic kidney disease Stage III CKD Congestive heart failure Atrial fibrillation. COPD-chronic oxygen use at 2 liters Hypothyroidism Chronic rotator cuff arthropathy and osteoarthritis - Laboratory Labs: Admission labs 11/29/17 11/29/17 03:55 03:55 WBC 8.3 RBC 2.35 L Hgb 7.2 L Hct 24.4 L MCV 103.8 H MCH 30.6 Plt Count 199 Sodium 145 Potassium 4.2 Chloride 109 H Carbon Dioxide 28 BUN 22.0 H Creatinine 1.5 H D GFR Calculation 33 Glucose 100 Calcium 8.9 Dismissal labs 12/23/17 12/23/17 03:50 03:50 WBC 6.3 RBC 2.43 L Hgb 7.6 L Hct 24.8 L MCV 102.1 H MCH 31.3 Plt Count 205 Sodium 150 H Potassium 4.2 Chloride 119 H Carbon Dioxide 21 L Anion Gap 10 Creatinine 1.8 H GFR Calculation 27 Glucose 72 AST 21 ALT 15 Alkaline Phosphatase 85 TSH 12/06/17 05:09 TSH 6.03 H Urinalysis 12/01/17 12:08 Ur Collection Type Urine, cath straight Urine Color Yellow Urine Clarity Sl cloudy Urine pH 6.0 Ur Specific [place] 1.015 Urine Protein 1+ A Urine Glucose (UA) Negative Urine Ketones Negative Urine Occult Blood 1+ A Urine Nitrate Negative Urine Bilirubin Negative Urine Urobilinogen 0.2 Ur Leukocyte Esterase 2+ A Urine RBC 1-3 Urine WBC 50-200 H Ur Squamous Epith Cells 5-10 Ur Transition Epith Cell 1-3 Urine Bacteria Trace H - Microbiology Microbiology 12/01/17 Urine, Voided Urine Culture - Final No Growth After 2 Days - Radiology Radiology: Date of Exam: 12/16/17 Indication: right shoulder pain XR shoulder RT 2-3 views: Findings: Patient demonstrates degenerative changes about the shoulder joint gently prominent about the inferior glenohumeral joint where there is some heterotrophic bony change about the inferior humeral head region. No acute bony fractures were noted. Patient does show a PICC line now traversing the region. Impression: Degenerative changes particularly prominent in the glenohumeral joint. Date of Exam: 12/09/17 EXAM: XR chest 1V HISTORY: SOA The lung cardoso are hypoventilated. The heart is enlarged. There is a stable left-sided dual-lead pacemaker in place. Again noted is calcification in the mitral valve annulus. There is been interval development of pulmonary vascular congestion and interstitial and alveolar edema. There are small bilateral pleural effusions. Subjacent atelectasis or infiltrate is seen at both lung bases. There is a stable right-sided PICC line in place. The bony thorax is stable IMPRESSION: 1. Cardiomegaly with moderate changes of congestive heart failure. 2. Small bilateral pleural effusions with subjacent atelectasis and/or infiltrate at the lung bases. 3. Stable right-sided PICC line. 4. Stable left-sided dual-lead pacemaker. History of Present Illness HPI: HPI on admission: Patient is seen post admission to the CCU following her ER visit today. She has a very extensive medical history as detailed above. She has dealt with recurrent infections, including sepsis and bacteremia, as well as complicated recurrent foot wound. She has been admitted under the hospitalist service multiple times in the past. She has dealt with a persistent right foot wound, with prior concern for osteomyelitis. She did undergo bone biopsy, which did NOT reveal osteomyelitis . Wound cultures of the site were polymicrobial, and did show MRSA sensitive to doxycycline. She has followed in the wound clinic for treatment of her wound, and [facility] home health has been following as well. Patient was seen in the ER 11/01/17 due to weakness post transfusion. A urine culture done on that date was + for E.Coli and Proteus Mirabilis. Home health has continued to follow the patient, and in their notes on 11/07/17, they documented that patient had a copious amount of drainage from the right foot wound. Patient was pale, and reported not feeling well, but her vitals were stable at that time. She was scheduled to see her PCP on the following day (11/08), and had also seen her PCP on 11/06. She has continued to feel progressively worse, and she was brought into the emergency room today for further assessment. While in the ER today, the patient was demonstrated to have multiple concerns. There is concern that she may be developing severe infection &/or sepsis due to severe foot wound. She has recently undergone a vascular procedure of the right LE due to chronic peripheral arterial disease,and is currently taking Plavix. Her HGB has dropped from 11.1 to 7.7 in the last 10 days, and a hemoccult done in ER was positive. Her BUN was also markedly elevating, lending concern to the finding of a GI bleed. She has a known history of esophageal cancer, for which she sees Dr. Newman. She has also seen Dr. Lopez in the past for GI bleed. Due to her multiple medical concerns, and frail elderly status, she is admitted to the intensive care unit for further evaluation and treatment. She is a very pale, ill appearing female. She is pleasant, and gives history in conjunction with her sister, whom she lives with. Patient reports that she underwent a transfusion on 11/01/2017 at [facility] in lieu of his scheduled vascular procedure due to anemia. Sister reports that her hemoglobin at that time was somewhere around 7, and she received 1 unit of blood. Following that dismissal, she was seen in the [facility] ER as detailed above. She reports that she was taken back to [facility] this last , and underwent vascular procedure on her right lower extremity. Neither she nor her sister know if the lesion was ballooned, or ballooned and stented. She has been on Plavix due to that procedure. She does not report any debbie blood in her stools, but does report that she has had several loose stools. She does feel that her stool is darker than usual. She reports that she right foot wound has treated been draining more than usual over the last week or so. She references wound care, but does not tell me if that is here at [facility] or at [facility]. As above, she continues to follow with Dr. Newman for her esophageal cancer. She continues to undergo routine, IV chemotherapy. Her last chemotherapy was approximately 2 weeks ago. In addition, she reports that Dr. dez figueroa updated them that her cancer was responding well to the chemotherapy. They had planned to hold chemotherapy for approximately 3 weeks due to the recurrence of her right foot wound. For complete details of the H&P refer to that document. Objective Vital signs: Temperature 96.5 F L 12/24/17 07:00 Pulse Rate 65 12/24/17 08:00 Respiratory Rate 22 12/24/17 07:00 Blood Pressure 152/69 H 12/24/17 07:00 Pulse Oximetry 99 12/24/17 07:00 Height/Weight/BMI: Height 1.63 m Weight 75.5 kg Body Mass Index 29.0 - Constitutional Present: no acute distress, well nourished, well developed - Routine HEENT Exam Head: Present: normocephalic, atraumatic - Routine Respiratory Exam Present: CTA bilaterally. Absent: wheezes - Routine Cardiovascular Exam Present: RRR, S1, S2 - Routine Abdominal Exam Present: soft, non distended, non tender - Routine Extremities Exam Present: edema (RLE), normal capillary refill - Routine Skin Exam Present: dry, warm - Routine Neurological Exam Present: alert, oriented X3 - Routine Lymphatic Exam Lymphatic: Absent: adenopathy - Routine Psychiatric Exam Present: normal affect, cooperative Hospital Course This is a general summary of the patient's hospital course. For more details refer to the complete medical record. Hospital course: 11/28/17 Admitted to Swing bed at [facility] for continuation of IV antibiotics. 11/29/17 - Wound/Surgical note: HGB has been stable in the 7 range for a week. Continue treatment for esophageal ulceration associated with her esophageal cancer. Continue to monitor HGB. Grade 3 DFU with osteomyelitis right foot is slowly improving, showing new granulation at the perimeter and in the center. Continue the Aquacel Q3 days and prn, and ABX per Dr. Fernandez. Small ulceration medial met head area is now soft, no purulence. Re re-start the Aquacel in the area, Q3d and prn. Dry eschar wounds dorsum of toes and large unstageable dry eschar of heel will continue Betadine paint BID. Off load with foam boot. May use "surgical shoe" for short distance (like the distance to the bathroom) ambulation with PT, she will not be able to wear her regular shoe for any significant amount of walking.The surgical shoe can be put over the dressings, but that would at least get the joints and muscles moving a little. 11/29/17 Admitted yesterday to swing bed status under the care of Dr. Caraballo. Appreciate ongoing infectious disease consultation and recommendations by Dr. Afua Fernandez. Patient will continue to receive IV Zosyn for treatment of osteomyelitis of the right 1st metatarsal. Course will be complete through December 22, 2017. Lower extremity wound will continue to be followed by the wound care center and Dr. Lopez. Continue to follow routine labs periodically through her stay. She has been anemic during her acute visit, hemoglobin has been low, however, remained stable , today 7.2 Routine Bumex was placed on hold yesterday 11/28 given. Hypovolemia with elevated sodium of 151. Patient was given 1 liter of IV fluids, today sodium has improved to 145. Will monitor carefully, suspect patient well need to be placed back on Bumex in the near future for chronic diuresing. Monitor daily under weights and I/O Carefully Continue to monitor renal function carefully, creatinine today 1.5 11/30/17 Admitted yesterday to swing bed status under the care of Dr. Caraballo. Appreciate ongoing infectious disease consultation and recommendations by Dr. Afua Fernandez. Patient will continue to receive IV Zosyn for treatment of osteomyelitis of the right 1st metatarsal. Course will be complete through December 22, 2017. Lower extremity wound will continue to be followed by the wound care center and Dr. Lopez. Continue to follow routine labs periodically through her stay. She has been anemic during her acute visit, hemoglobin has been low, however, remained stable , today 7.2 Routine Bumex was placed on hold 11/28 given hypovolemia with elevated sodium. Monitor po intake on dysphagia diet. She is particularly having trouble with thickened liquids. 12/01/17 Overall, Angela appears to be doing well. She complains of urinary urgency. UA obtained revealed 50-200 WBC with 5-10 squamous epithelial cells, 1-3 transition epithelial cells and trace bacteria. Will hold off on additional antibiotic treatment until culture is available. She remains on IV Zosyn for treatment of osteomyelitis of the right 1st metatarsal. Course will be complete through December 22, 2017. Appreciate ongoing infectious disease consultation and recommendations by Dr. Afua Fernandez. Lower extremity wound will continue to be followed by the wound care center and Dr. Lopez. Weight slowly trending up. Routine Bumex was placed on hold 11/28 given hypovolemia. Continue to monitor oral intake on dysphagia diet. She is particularly having trouble with thickened liquids. Hypernatremia resolved with Bumex on hold. Anemia stable. Continue to monitor electrolytes closely. Blood sugars slightly elevated. Will increase breakfast NovoLog to 2 units and continue to monitor closely, adjusting as indicated. Continue to monitor I&O closely as well as daily weight. Will discuss restarting home Bumex with Dr. Caraballo given resolution of hypernatremia and increasing weight and blood pressure. Plan is for patient to remain on swing bed status through the course of her antibiotics. 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 However weight trends up and she is not requiring more oxygen- suspect edema extravascularly. Will given D5W- at 75 ml/hr for gently hydration given decreased PO fluid intake. Will Give 1 unit of PRBC given anemia. Give a one time dose of IV Bumex this afternoon following transfusion. She was previously on Bumex BID however it was held 11/28 and resumed daily this morning. Continue on IV Zosyn for treatment of osteomyelitis of the right 1st metatarsal. Course will be complete through December 22, 2017. 12/03/17 UA was collected yesterday 12/01- C/S revels no growth after 1 day - No treatment Given increased wheezing will give additional dose of Bumex 1 mg IV this afternoon Oxygen demands are slightly up from baseline Continue to follow Hgb- 7.6 today Continue on IV Zosyn for treatment of osteomyelitis of the right 1st metatarsal. Course will be complete through December 22, 2017. 12/04/17 Extra Bumex given yesterday - No wheezing on exam today. Renal function has been worsening; currently at 2.1. Weight trending up. 12/05/17 Increased subjective SOA today; will repeat CXR. Cr 2.0. Na 150. 12/06/17 CXR reviewed - improvement noted. Down to 1L per NC. Renal function stable, BUN 33 and cr 1.9. Na still high but also stable at 150. Hgb down to 7.4 but overall asymptomatic - monitor. TSH trending down after initiation of Synthroid back in September,.03 12/07/17 CXR reviewed - improvement noted. At baseline 2 liters oxygen. On oral bumex. Renal function stable, BUN 33 and cr 1.9. Na still high but also stable at 150. Hgb down to 7.4 but overall asymptomatic - monitor. Repeat labs Saturday. TSH trending down after initiation of Synthroid back in September,. Encouraged PT/OT. Continue Zosyn for osteomyelitis of the right 1st metatarsal through December 22, 2017. Wound care per Dr. Lopez/wound team. 12/08/17 At baseline 2 liters oxygen. On oral Bumex-repeat serum sodium. May need to decrease dose of Bumex. Renal function stable, BUN 33 and cr 1.9. Na still high but also stable at 150. Hgb down to 7.4 but overall asymptomatic - monitor. Repeat labs now and in AM. TSH trending down after initiation of Synthroid back in September, 6.03 Encouraged PT/OT. Unable to use blood thinners due to concern for slow GI blood losses. Continue SCDs. Continue Zosyn for osteomyelitis of the right 1st metatarsal through December 22, 2017. Wound care per Dr. Lopez/wound team. 12/09/17 Conversational dyspnea and decreased air movement with increased crackles to bases -- weight has been trending up. Will give Bumex 0.5 mg IV x1. Cont oral Bumex. Repeat CXR now. BUN 33, Cr 1.9 -- recheck in am. Hgb 8.1 - stable for pt. Increase Synthroid to 37.5 mcg. 12/10/17 Still slightly tachypneic; CXR personally reviewed showing failure with pleural eff. Will give add'l Bumex 0.5 mg IV x1 for diuresis. Monitor renal function/Na : Na stable at 148, BUN 31, Cr 2.0. 12/11/17- Overall stable. Dyspnea improved, continue on scheduled PO Bumex. 12/13/17- Medically stable. Continue with PO daily bumex. Continue PT/OT.Continue Zosyn for osteomyelitis of the right 1st metatarsal tentatively through December 22, 2017. Per Dr. Fernandez, she'd recommend Invanz 1gm IV daily and Daptomycin 6mg/kg IV daily for outpt therapy. 12/16/17-SWING status. Continue Zosyn through 12/22/[address] Fernandez, or if antibiotics needed outpatient-Invanz 1 g IV daily and daptomycin 6 mg/kg IV daily through 2017 Consult with orthopedic team- Xray reveled degenerative changes of glenohumeral joint. Recommend PT/OT Continue with current wound care & BiPAP HS Spoke with CM regarding possible IRU for ongoing antibiotics and increased therapy for strengthening. 12/17/17-SWING status. Continue Zosyn through 12/22/[address] Fernandez, or if antibiotics needed outpatient-Invanz 1 g IV daily and daptomycin 6 mg/kg IV daily through 2017 Topical Voltaren gel for pain of right shoulder gel Follow routine lab work, hemoglobin is stable at 7.2. Bumex was decreased to 0.5 mg daily as well as potassium to 10 mEq Check chemistry panel - 12/19 Continue to work with PT/OT for strengthening. She is worried about her balance. 12/18/17-SWING status. She will have her sister bring her home C-pap. We will went to utilize this at night as she does not need BiPAP. Will continue on her baseline oxygen. Bumex 0.5 mg daily as well as potassium to 10 mEq Continue Zosyn through 12/22/[address] Fernandez, or if antibiotics needed outpatient-Invanz 1 g IV daily and daptomycin 6 mg/kg IV daily through 2017. Will likely need to get Dr. Fernandez's recommendations on Saturday12/23/17 for ongoing discharge plan as this will complete her 6 week course. Follow routine lab work, hemoglobin is stable at 7.4 Check chemistry panel are all - 12/19 Continue to work with PT/OT for strengthening. She is worried about her balance. 12/19/17 Patient doing well. Hemoglobin is stable at 7.3 Dr. Lopez debrided her ulcerations on the right foot today. Patient with neuropathy, declines pain. 12/21/17 Generally stable; continue diclofenac topical gel for shoulder pain with addition of Benadryl cream as needed for itching. Other medical problems stable-reassess labs on Saturday at which time antibiotics should be completed. Initially planned Zosyn through 12/22/2017 but given recent reported need for additional debridement will continue Zosyn. 12/24/17 DC to [facility] today. Per Dr. Fernandez, will continue on Amoxil x 4 weeks for wounds and see her in wound clinic in 2 weeks. F-u with Dr. Lopez in 2 wks in wound clinic. Continue Aquacel AG and Mepilex to R medial foot wound and R toes. Change q 3 days. Continue Betadine to heel BID. Offload heel. Continue to work with OT/PT in SNU. Time spent with patient: discharge greater than 30 minutes Resuscitation Status: Do Not Resuscitate Discharge Plan - Discharge Disposition Discharge Date: 12/24/17 Disposition: 03 To SNU Not [facility] (SNF) *Condition: Stable Reason For Visit (Visit label in EMR): osteomylitis - Discharge Medications *Discharge Medications: New Acidoph/L.bulg/Bif.b/S.thermop [Bacid Caplet] 2 cap PO BIDWM tab Bumetanide Tab [Bumex 0.5 mg Tab] 0.5 mg PO DAILY tab Diclofenac Top Gel [Voltaren] 1 applicatio TP QID PRN tube PRN Reason: shoulder pain Hydrocortisone 1% Cream [Cortizone-10 Cream] 1 applicatio TOP BID PRN tube PRN Reason: itching, rash Insulin Aspart [NovoLOG] 2 unit SQ WB vial Saline Flush [IV Flush] 10 - 80 ml IVF PRN PRN syringe PRN Reason: Flushing Potassium Chloride [K-DUR 10 mEq Tablet] 10 meq PO WS tab Amoxicillin 500 mg PO Q12HR cap Diphenhydramine Cream [Benadryl Extra Strength Cream] 1 applicatio TOP TID PRN tube PRN Reason: Itching Levothyroxine Tab [Synthroid] 37.5 mcg PO ACB tab Continue Carvedilol 12.5 mg PO BIDWM #0 Mirtazapine [Remeron] 15 mg PO HS Lisinopril [Prinivil] 2.5 mg PO DAILY #30 tab Amlodipine [Norvasc] 2.5 mg PO DAILY Sucralfate [Carafate] 1 gm PO ACHS Atorvastatin [Lipitor] 40 mg PO HS Ascorbic Acid 500 mg PO DAILY Amiodarone [Pacerone] 200 mg PO DAILY Acetaminophen [Tylenol] 500 mg PO Q6H PRN PRN Reason: Pain Insulin Aspart [NovoLOG] 4 unit SQ WL Insulin Aspart [NovoLOG] 4 unit SQ WS Dextrose 50% Vial [D50%W] 10 ml IV PRN PRN PRN Reason: Hypoglycemia Lactobacillus Acidophilus [Acidophilus Lactobacillus] 2 cap PO BIDWM Pantoprazole Sodium [Protonix] 1 tab PO ACBID LORazepam [Ativan] 0.5 mg PO BID PRN PRN Reason: Anxiety Albuterol Neb (0.083%) [Proventil Neb (0.083%)] 2.5 mg AEROSOL Q6HR PRN PRN Reason: Shortness Of Air Ferrous Sulfate 324 mg PO WB Aspirin [Adult Aspirin Regimen] 81 mg PO DAILY Levemir 10 units SQ HS Discontinued Bumetanide Tab [Bumex 1 mg Tab] 1 mg PO BID LORazepam [Ativan] 0.5 mg PO DAILY PRN PRN Reason: Anxiety Insulin Aspart [NovoLOG] 1 unit SQ WB #0 Levothyroxine Tab [Synthroid] 25 mcg PO ACB #30 tab Potassium Chloride [K-DUR 20 mEq Tablet] 1 tab PO WS - Discharge Packet/Instructions *Diet: Regular soft diet. Gravy on meat. Fluid consistency: syrup/nectar thickened. Food consistency: Chopped meat *Activity: Per PT/OT *Wound Care: Aqucel AG then Mepilex to right medial foot wound and dorsum of right foot toes, change every 3 days. May wash foot and toes with soap and water when dressing changed, but Do NOT soak foot. [place] right heel with Betadine solution BID and allow to dry before placing soc. Off load feet/heels when in bed with foam boots or similar device. - Referrals/Follow Up *Referrals/Follow Up: Nandini Fernandez MD [Physician] - (schedule pt to see her in wound clinic in 2 wks) Phil Lopez MD [Physician] - (on a Saturday morning the wound clinic 1-2 weeks after discharge.) Rachel Dietz DO [Primary Care Provider] - 1 Week - Patient Handouts Patient Handouts: Osteomyelitis (GEN) - Dismissal Complete Discharge Instructions are:: Complete Physician Narrative - Narrative Physician: Vishnu Casiano MD Attestation Narrative: Date: 12/24/17 Time: 1124 I have independently interviewed & examined patient prior to discharge. Chart reviewed. Case discussed with BRIGHT and my PA. Care plan developed with my supervision; agree with above. Doing well today. Breathing well. No f/c. Strength improving, but knows needs to be much stronger before she can return home. Lungs: decreased, no distress CV: regular AB: soft nt MSE: awake alert appropriate Plan: Medically stable for discharge to custodial. See orders for details.
--- NOTE | 2017-12-24 13:47 | Extended Care Facility Orders ---
<Akanksha Foley - Last Filed: 12/24/17 13:42> Admission Orders Admit to:: Long Term Allergies/Adverse Reactions: Allergies sulfamethoxazole Allergy (Unknown, Verified 11/28/17 15:24) hives trimethoprim Allergy (Unknown, Verified 11/28/17 15:24) HIVES niacin Adverse Reaction (Intermediate, Verified 11/28/17 15:24) HIVES Admitting Diagnosis: osteomylitis Admitting Physician: Vishnu Casiano MD Attending Physician: Vishnu Casiano MD Code Status: Do Not Resuscitate Anticiapted Length of Stay: 30 days or less Rehab Potential: good Rehab Prognosis: good Diet: No concentrated sweets, no added salt, syrup/nectar thickened liquids, chopped meat, gravy on meat Wound/Incision Care: [employer] then Mepilex to right medial foot wound and dorsum of right foot toes, change every 3 days. May wash foot and toes with soap and water when dressing changed, but Do NOT soak foot. Silt right heel with Betadine solution BID and allow to dry before placing sock. Off load feet/ heels when in bed with foam boots or similar device. May use Facility Protocol or Standing Orders: Yes May have flu vaccine: Yes Evaluations/Treatment: PT, OT, as needed Long Term Certification: I certify that SNF services are required to be given on an Inpatient basis because of the patients need for retirement care on a continuing basis for the condition(s) for which he/she received inpatient hospital services prior to his/her transfer to the SNF. SNF inpatient care is necessary for the following reasons Indication for Long Term: Wound Care/Assessment, Med Admininistration, Other (PT/OT) - Additional Information In Event of Arrest: Do Not Start CPR Resident is Aware of Diagnosis: Yes Laboratory/Radiology: CBC and BMP in 1 week to follow white count, hgb, renal function. Dx: anemia, CKD. Referrals: Nandini Fernandez MD [Physician] - (schedule pt to see her in wound clinic in 2 wks) Phil Lopez MD [Physician] - (on a Saturday morning the wound clinic 1-2 weeks after discharge.) Rachel Dietz DO [Primary Care Provider] - 1 Week Additional Orders: Last day of Amoxicillin is January 21 unless directed differently by Dr[address] Fernandez. Check BS's fasting and 2 hr pp. Call PCP if BS>250. <Vishnu Casiano - Last Filed: 12/24/17 14:16> Admission Orders Admitting Diagnosis: osteomylitis Admitting Physician: Vishnu Casiano MD Attending Physician: Dr Chou Code Status: Do Not Resuscitate Long Term Certification: I certify that SNF services are required to be given on an Inpatient basis because of the patients need for retirement care on a continuing basis for the condition(s) for which he/she received inpatient hospital services prior to his/her transfer to the SNF. SNF inpatient care is necessary for the following reasons - Additional Information Additional Orders: IS QID. May use Home CPAP at night with 2L O2. O2 as needed to keep saturations >+90%.
[2017-12-24] MEDS: ACETAMINOPHEN 500 MG TABLET PO PRN (14:20)
== END 2017-12-24 15:00 | DRG 854 ==
LOC: SUATTDRO 14:20 → MED 14:20
PROVIDERS: ADMIT Hospitalist; ATTEND Hospitalist